=== PATIENT | female | born 1950 | race Caucasian/White ===

== ENCOUNTER → 2017-08-26 | Day surgery (SDC) | payer MEDICARE ==
[2017-08-24 15:39] LABS: BASOPHILS % 0.5 % (0.0-1.0); EOSINOPHILS # (AUTO) 0.1 (0.0-0.4); EOSINOPHILS % 1.4 % (0.0-6.0); HEMATOCRIT 39.6 % (34.2-44.1); LYMPHOCYTES # (AUTO) 1.5 (1.0-3.2); LYMPHOCYTES % 19.9 % (18.0-39.1); MEAN CORPUSCULAR HEMOGLOBIN 31.1 pg (28-32); MEAN CORPUSCULAR HGB CONC 32.8 g/dL (31-35); MEAN CORPUSCULAR VOLUME 94.7 fL (81-99); MONOCYTES # (AUTO) 0.6 (0.2-0.8); MONOCYTES % 8.2 % (4.4-11.3); NEUTROPHILS # (AUTO) 5.4 (2.1-6.9); NEUTROPHILS % 69.7 % (38.7-80.0); PLATELET COUNT 258 x10e3/uL (140-360); RED BLOOD COUNT 4.18 x10e6/uL (3.6-5.1); RED CELL DISTRIBUTION WIDTH 16.2 % (11.7-14.4)
--- NOTE | 2017-08-24 15:40 | Diagnostic Imaging Report ---
PROCEDURE: Frontal and lateral views of the chest. COMPARISON: None. INDICATIONS: PRE OP FINDINGS: Lines/tubes: Left chest wall port in place with tip overlying the inferior SVC or cavoatrial junction. Distal tips of thoracic spine stimulator device are visualized. Lungs: The lungs are well inflated and clear. There is no evidence of pneumonia or pulmonary edema. Pleura: There is no pleural effusion or pneumothorax. Heart and mediastinum: The heart and the mediastinum are normal. Surgical clips overlying midline neck base. Bones: No acute bony abnormality. Degenerative changes of the thoracic spine. IMPRESSION: 1. No acute cardiopulmonary disease. Dictated by: Oseas Infante M.D. on 08/24/2017 at 15:49 Electronically approved by: Oseas Infante M.D. on 08/24/2017 at 15:49
[2017-08-24 15:56] LABS: ANION GAP 15.7 mmol/L (8-16); CALCIUM 10.3 mg/dL (8.4-10.2); CREATININE, SERUM 1.14 mg/dL (0.57-1.11); POTASSIUM 4.7 mmol/L (3.5-5.1)
[~2017-08-26] MED LIST: ALLOPURINOL300 MG PO; AMLODIPINE BESYL5 MG PO; ANASTROZOLE1 MG PO; BELLADONNA/OPIUM 60 MG SUPP PR ONE; BENADRYL25 M1 PO; CIPRO PO; COLCRYS0.6 MG PO; CRANBERRY400 MG PO; DEXAMETHASONE SOD PHOS INJ 4 MG/ML VIAL ONE; FENTANYL CITRATE/PF 100MCG/2 ML INJ ONE; FUROSEMIDE40 MG PO; GABAPENTIN300 MG PO; GENTAMICIN 80MG/NS 100 ML 200 ML IV ONE; HEPARIN 500 UNITS/5ML MDV INJ ONE; HUMALOG100 UNIT/3 SC; HYDROCHLOROTHIA25 MG; IOPAMIDOL 610MG/1ML 300 MG/ML VIAL IV ONE; ISOSORBIDE MONO20 MG PO; ISOSORBIDE MONO30 MG PO; LANTUS 3ML100 UNITS/ SC; LIDOCAINE HCL 2% LOCAL INJ 5 ML SDV VIAL INJ ONE; LIOTHYRONINE SO5 MCG PO; LOMOTIL TABLET1 EACH PO; MAGNESIUM PO; METOPROLOL SUCC50 MG PO; METOPROLOL TART25 MG PO; MIDAZOLAM HCL 2 MG/2 ML VIAL ONE; MYRBETRIQ50 MG PO; NITROFURANTOIN100 MG PO; NITROGLYCERIN0.4 MG SL; OMEPRAZOLE40 MG PO; ONDANSETRON HCL INJ 2 MG/ML VIAL ONE; PHENERGAN PO; PLAVIX75 MG PO; PROMETHAZINE HC25 M1 PO; PROPOFOL IV EMULSION 10 MG/ML 20 ML VIAL ONE; SEVOFLURANE INHAL SOLN 250 ML PEN BTL ONE; SPIRONOLACTONE25 MG PO; SYNTHROID125 MCG PO; TEA TREE OIL30 ML PO; TEMAZEPAM15 MG PO; TEMAZEPAM30 MG; TIZANIDINE HCL4 MG PO; TRAZODONE HCL50 MG PO; VIT D3 PO; [UNRECOGNIZED DRUG - OTHER] PO; [UNRECOGNIZED DRUG - OTHER] PO
--- NOTE | 2017-10-13 07:06 | Operative Report ---
DATE OF PROCEDURE: August 26, 2017 PREOPERATIVE DIAGNOSES 1. Urinary tract infections. 2. Mixed-type urinary incontinence. POSTOPERATIVE DIAGNOSES 1. Urinary tract infections. 2. Mixed-type urinary incontinence. 3. Grade 2 cystocele. 4. Atrophic (senile) vaginitis. 5. Grade 2 rectocele. 6. Urethral hypermobility. OPERATIONS PERFORMED 1. Cystourethroscopy with bilateral ureteral catheterization and retrograde ureteropyelography. 2. Interpretation of retrograde ureteropyelography. 3. Supervision of fluoroscopy. No radiologist present. 4. Pelvic examination under anesthesia. ANESTHESIA: General. COMPLICATIONS: None. CLINICAL SUMMARY: Nadia Renner is a 67-year-old woman with the above preoperative diagnoses. She is brought for the above procedures. She is aware of the risks of bleeding, infection, injury to adjacent structures, need for additional procedures, and elected to proceed. OPERATIVE PROCEDURE IN DETAIL: Informed consent was verified. Nadia Renner was properly identified, taken to the operating room, placed on the cystoscopy table in supine position. Anesthesia was uneventfully begun. The patient was then carefully gently re-positioned in the dorsal lithotomy position with all pressure points well padded. Her genitalia were prepared and draped in usual sterile fashion. A 22.5-Turkmen cystoscope sheath with the obturator in place was atraumatically inserted into the patient's urethra and bladder was drained. Panendoscopy of the urinary bladder revealed no suspicious mucosal lesions. No tumors, no stones, and no diverticula. Normally positioned and configured ureteral orifices were identified. There were grade 1 trabeculations. A ureteral catheter was used to cannulate each ureter and retrograde ureteropyelograms were performed. Interpretation of retrograde ureteropyelography: Contrast was instilled in retrograde fashion bilaterally. There were no tumors, no stones, and no diverticula. Unobstructed drainage was observed on the left-hand side. The right-hand side had a dilated renal pelvis and calices with poor opacification of the upper pole. There appeared to be an at the ureteropelvic junction consistent with ureteropelvic junction obstruction. Due to the fact that I was not able to visualize the upper pole well, I did a thorough cystoscopy and I was not able to find a 2nd ureteral orifice on the right-hand side. The patient's bladder was then drained. Cystoscope was withdrawn. Pelvic examination under anesthesia revealed a grade 2 cystocele, grade 2 rectocele. There was atrophic vaginitis and urethral hypermobility. No abnormal palpable pelvic masses could be appreciated. There were no obvious mucosal lesions. The patient was then uneventfully reversed from anesthesia and taken to the recovery room in stable condition. There were no complications of the procedure. She tolerated the procedure well. Plans will be to order Lasix renogram to evaluate the functionality and drainage of the right kidney. Job#: [id number] cc:KRISTY RODRIGUEZ MD
== END | disposition home or self-care (01) ==
LOC: OR 05:09
PROVIDERS: ATTEND Urology
DX: N39.0 Urinary tract infection, site not specified (principal); N39.46 Mixed incontinence; N32.89 Other specified disorders of bladder; N36.41 Hypermobility of urethra; N81.10 Cystocele, unspecified; N81.6 Rectocele; N95.2 Postmenopausal atrophic vaginitis; I25.10 Atherosclerotic heart disease of native coronary artery without angina pectoris; I48.91 Unspecified atrial fibrillation; E03.9 Hypothyroidism, unspecified; E66.01 Morbid (severe) obesity due to excess calories; E11.22 Type 2 diabetes mellitus with diabetic chronic kidney disease; I12.9 Hypertensive chronic kidney disease with stage 1 through stage 4 chronic kidney disease, or unspecified chronic kidney disease; N18.9 Chronic kidney disease, unspecified; Z01.810 Encounter for preprocedural cardiovascular examination; Z01.812 Encounter for preprocedural laboratory examination; Z01.818 Encounter for other preprocedural examination
CPT/HCPCS: 36415 ×2; 52005; 71020; 74420; 80048; 82948; 85025; 93005; C1758; J1100; J1580; J2001; J2250; J2405; Q9967; 71046

== ENCOUNTER → 2017-09-17 | Outpatient (CLI) | payer MEDICARE ==
[~2017-09-17] MED LIST changes: -BELLADONNA/OPIUM 60 MG SUPP PR ONE; -CIPRO PO; -DEXAMETHASONE SOD PHOS INJ 4 MG/ML VIAL ONE; -FENTANYL CITRATE/PF 100MCG/2 ML INJ ONE; +FUROSEMIDE INJ 10 MG/ML 4 ML VIAL ONE; -GENTAMICIN 80MG/NS 100 ML 200 ML IV ONE; -HEPARIN 500 UNITS/5ML MDV INJ ONE; -HYDROCHLOROTHIA25 MG; -IOPAMIDOL 610MG/1ML 300 MG/ML VIAL IV ONE; -ISOSORBIDE MONO30 MG PO; -LIDOCAINE HCL 2% LOCAL INJ 5 ML SDV VIAL INJ ONE; -METOPROLOL TART25 MG PO; -MIDAZOLAM HCL 2 MG/2 ML VIAL ONE; -NITROFURANTOIN100 MG PO; -ONDANSETRON HCL INJ 2 MG/ML VIAL ONE; -PROMETHAZINE HC25 M1 PO; -PROPOFOL IV EMULSION 10 MG/ML 20 ML VIAL ONE; -SEVOFLURANE INHAL SOLN 250 ML PEN BTL ONE; -TEMAZEPAM30 MG
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
== END ==
LOC: NM 08:53
PROVIDERS: ATTEND Urology
DX: N13.1 Hydronephrosis with ureteral stricture, not elsewhere classified (principal); N28.1 Cyst of kidney, acquired
CPT/HCPCS: 78708; A9562; J1940

== ENCOUNTER → 2017-10-02 | Day surgery (SDC) | payer MEDICARE ==
[~2017-10-02] MED LIST changes: +BELLADONNA/OPIUM 60 MG SUPP PR ONE; +CIPRO PO; +DESFLURANE 240 ML BTL INH ONE; +DEXAMETHASONE SOD PHOS INJ 4 MG/ML VIAL ONE; +FENTANYL CITRATE/PF 100MCG/2 ML INJ ONE; +FLAGYL250 MG PO; -FUROSEMIDE INJ 10 MG/ML 4 ML VIAL ONE; +GENTAMICIN 80MG/NS 100 ML 100 ML IV ONE; +HEPARIN 500 UNITS/5ML MDV INJ ONE; +HYDROCHLOROTHIA25 MG; +HYDROMORPHONE 1MG/1ML INJ ONE; +IOPAMIDOL 610MG/1ML 300 MG/ML VIAL IV ONE; +ISOSORBIDE MONO30 MG PO; +LETROZOLE2.5 MG PO; +LIDOCAINE HCL 2% LOCAL INJ 5 ML SDV VIAL INJ ONE; +LOSARTAN POTASS25 MG PO; +METOCLOPRAMIDE HCL 10 MG/2ML VIAL ONE; +METOPROLOL TART25 MG PO; +MIDAZOLAM HCL 2 MG/2 ML VIAL ONE; +NITROFURANTOIN100 MG PO; +ONDANSETRON HCL INJ 2 MG/ML VIAL ONE; +PROMETHAZINE HC25 M1 PO; +PROPOFOL IV EMULSION 10 MG/ML 20 ML VIAL ONE; +TEMAZEPAM30 MG
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
--- NOTE | 2017-12-06 12:30 | Operative Report ---
DATE OF PROCEDURE: November 30, 2017 PREOPERATIVE DIAGNOSES 1. Right hydronephrosis due to stricture. 2. Urinary tract infections. 3. Mixed-type urinary incontinence. POSTOPERATIVE DIAGNOSES 1. Right hydronephrosis due to stricture. 2. Urinary tract infections. 3. Mixed-type urinary incontinence. 4. Grade 2 cystocele. 5. Grade 3 rectocele. 6. Urethral hypermobility. 7. Atrophic (senile) vaginitis. PROCEDURES PERFORMED 1. Cystourethroscopy with bilateral ureteral catheterization and retrograde ureteropyelography (separate procedure performed for diagnosis of urinary tract infections). 2. Cystourethroscopy with insertion of right indwelling ureteral stent (separate procedure performed the hydronephrosis due to stricture). 3. Interpretation of retrograde ureteropyelography. 4. Supervision of fluoroscopy, no radiologist present. 5. Pelvic examination under anesthesia. ANESTHESIA: General. COMPLICATIONS: None. CLINICAL SUMMARY: Nadia Renner is a 67-year-old woman with hydronephrosis presumably due to ureteropelvic junction obstruction/stricture. She is brought for the above procedures. She is aware of the risks of bleeding, infection, injury to adjacent structures, and need additional procedures and elected to proceed. OPERATIVE PROCEDURE IN DETAIL: Informed consent was verified. Ndaia Renner was properly identified, taken to operating room, and placed on the cystoscopy table in supine position. Anesthesia was uneventfully begun. Patient was then carefully and gently repositioned in dorsal lithotomy position with all pressure points well padded and her genitalia were prepared and draped in the usual sterile fashion. A 22.5-Romanian cystoscope sheath with obturator in place was atraumatically inserted in the patient's urethra and the bladder was drained. Panendoscopy within the urinary bladder revealed grade 1 trabeculations, but no tumors, no stones and no diverticula. Normally positioned and configured ureteral orifices were identified. An 8-Romanian catheter was used to cannulate the left ureter and a retrograde ureteropyelogram was performed. It was then introduced into the right ureter and retrograde ureteropyelogram was performed. Interpretation of retrograde ureteropyelography: Contrast was instilled in retrograde fashion bilaterally. Left side was unremarkable. There were no tumors, no stones, and no diverticula. Unobstructed drainage was observed fluoroscopically. On the right hand side, the ureter was unremarkable up until we reached this right kidney. The right kidney appeared lower than normal. There appeared to be obstruction at the ureteropelvic junction. It is as if this was either a ptotic kidney or it is the lower pole moiety of a duplicated system. Despite careful panendoscopy, I could not see a secondary right ureteral orifice. Under cystoscopic and fluoroscopic guidance, a right-sided indwelling ureteral stent was then placed. It was coiled in the patient's kidney as well as the patient's bladder. Retaining suture was cut short. Patient's bladder was then drained. Cystoscope was withdrawn. Pelvic examination under anesthesia revealed a grade 2 cystocele, grade 3 rectocele, urethral hypermobility as well as vaginal atrophy were present. No abnormal palpable pelvic masses could be appreciated. Patient was then uneventfully reversed from anesthesia and taken to recovery room in stable condition. There were no complications to the procedure. Patient tolerated the procedure well. Exclusive postop instructions were given. We will plan on obtaining a CT scan of the abdomen and pelvis to evaluate the upper pole of the right kidney to see whether it is duplicated, whether it is hydronephrotic, whether it is present as well as we will plan to follow the patient up in the office. Job#: [id number] JULIENNE cc:Praveen Foss MD
== END | disposition home or self-care (01) ==
LOC: OR 10:16
PROVIDERS: ATTEND Urology
DX: N13.1 Hydronephrosis with ureteral stricture, not elsewhere classified (principal); N39.0 Urinary tract infection, site not specified; N39.46 Mixed incontinence; N28.1 Cyst of kidney, acquired; N32.89 Other specified disorders of bladder; R35.1 Nocturia; N32.81 Overactive bladder; N39.44 Nocturnal enuresis; N81.89 Other female genital prolapse; N36.41 Hypermobility of urethra; N81.6 Rectocele; N95.2 Postmenopausal atrophic vaginitis; I48.91 Unspecified atrial fibrillation; I25.10 Atherosclerotic heart disease of native coronary artery without angina pectoris; E66.01 Morbid (severe) obesity due to excess calories; J45.909 Unspecified asthma, uncomplicated; Z79.02 Long term (current) use of antithrombotics/antiplatelets; Z79.4 Long term (current) use of insulin; Z68.41 Body mass index [BMI] 40.0-44.9, adult; K58.9 Irritable bowel syndrome, unspecified; E11.22 Type 2 diabetes mellitus with diabetic chronic kidney disease; I12.9 Hypertensive chronic kidney disease with stage 1 through stage 4 chronic kidney disease, or unspecified chronic kidney disease; N18.9 Chronic kidney disease, unspecified; Z80.52 Family history of malignant neoplasm of bladder
CPT/HCPCS: 36415; 52332; 74420; 82948; C1758; C2617; J1100; J1170; J1580; J2001; J2250; J2405; J2765; Q9967

== ENCOUNTER 2017-10-06 10:35 | Emergency (ER) | payer MEDICARE ==
[~2017-10-06] VITALS: Ht 165.1 cm; Wt 122.0 kg
[~2017-10-06 10:35] MED LIST changes: -BELLADONNA/OPIUM 60 MG SUPP PR ONE; -DESFLURANE 240 ML BTL INH ONE; -DEXAMETHASONE SOD PHOS INJ 4 MG/ML VIAL ONE; -FENTANYL CITRATE/PF 100MCG/2 ML INJ ONE; -FLAGYL250 MG PO; -GENTAMICIN 80MG/NS 100 ML 100 ML IV ONE; -HEPARIN 500 UNITS/5ML MDV INJ ONE; -HYDROMORPHONE 1MG/1ML INJ ONE; -IOPAMIDOL 610MG/1ML 300 MG/ML VIAL IV ONE; -ISOSORBIDE MONO30 MG PO; -LETROZOLE2.5 MG PO; -LIDOCAINE HCL 2% LOCAL INJ 5 ML SDV VIAL INJ ONE; -LOSARTAN POTASS25 MG PO; -METOCLOPRAMIDE HCL 10 MG/2ML VIAL ONE; -METOPROLOL TART25 MG PO; -MIDAZOLAM HCL 2 MG/2 ML VIAL ONE; -NITROFURANTOIN100 MG PO; -ONDANSETRON HCL INJ 2 MG/ML VIAL ONE; -PROMETHAZINE HC25 M1 PO; -PROPOFOL IV EMULSION 10 MG/ML 20 ML VIAL ONE
[2017-10-06] MEDS ORDERED: HYDROMORPHONE 1MG/1ML INJ IV STA (12:04)
[2017-10-06 13:05] LABS: BASOPHILS % 0.5 % (0.0-1.0); EOSINOPHILS # (AUTO) 0.2 (0.0-0.4); EOSINOPHILS % 2.2 % (0.0-6.0); HEMATOCRIT 35.3 % (34.2-44.1); HEMOGLOBIN 11.8 g/dL (12.0-16.0); LYMPHOCYTES # (AUTO) 1.6 (1.0-3.2); LYMPHOCYTES % 21.2 % (18.0-39.1); MEAN CORPUSCULAR HEMOGLOBIN 31.4 pg (28-32); MEAN CORPUSCULAR HGB CONC 33.4 g/dL (31-35); MEAN CORPUSCULAR VOLUME 93.9 fL (81-99); MONOCYTES # (AUTO) 0.9 (0.2-0.8); MONOCYTES % 11.6 % (4.4-11.3); NEUTROPHILS # (AUTO) 4.7 (2.1-6.9); NEUTROPHILS % 64.1 % (38.7-80.0); PLATELET COUNT 241 x10e3/uL (140-360); RED BLOOD COUNT 3.76 x10e6/uL (3.6-5.1); RED CELL DISTRIBUTION WIDTH 15.5 % (11.7-14.4)
[2017-10-06 13:08] LABS: BILIRUBIN,URINE NEGATIVE (NEGATIVE); KETONES,URINE NEGATIVE (NEGATIVE); LEUKOCYTE ESTERASE ,URINE TRACE (NEGATIVE); NITRITE,URINE NEGATIVE (NEGATIVE); URINE UROBILINOGEN 0.2 mg/dL (0.2 - 1)
[2017-10-06 13:18] LABS: ALBUMIN 3.4 g/dL (3.5-5.0); ALBUMIN/GLOBULIN RATIO 0.9 (0.8-2.0); ANION GAP 11.8 mmol/L (8-16); CALCIUM 8.7 mg/dL (8.4-10.2); CREATININE, SERUM 1.2 mg/dL (0.57-1.11); POTASSIUM 3.8 mmol/L (3.5-5.1)
[2017-10-06 13:22] LABS: CLARITY,URINE SL CLOUDY (CLEAR); COLOR,URINE YELLOW (YELLOW); PROTEIN,URINE DIPSTICK 1+ (NEGATIVE)
[2017-10-06 13:28] LABS: BACTERIA,URINE RARE /HPF; EPITHELIAL CELLS,URINE FEW /LPF; WBC,URINE (MAN) 0-5 /HPF (0-5)
--- NOTE | 2017-10-06 14:17 | Diagnostic Imaging Report ---
PROCEDURE: CT ABDOMEN AND PELVIS WITHOUT CONTRAST TECHNIQUE: The abdomen and pelvis were scanned utilizing a multidetector helical scanner from the diaphragm to the lesser trochanter. No IV contrast was administered as per physician request. Coronal and sagittal multiplanar reformations were obtained. COMPARISON: None. INDICATIONS: RIGHT FLANK PAIN FINDINGS: ABSENCE OF INTRAVENOUS CONTRAST DECREASES SENSITIVITY FOR DETECTION OF FOCAL LESIONS AND VASCULAR PATHOLOGY. LOWER THORAX: Normal. An implanted device is present in the left flank with the catheter positioned within the lower thoracic spine. Coronary artery stent. HEPATOBILIARY: No focal hepatic lesions. No biliary ductal dilatation. Cholecystectomy. SPLEEN: No splenomegaly. PANCREAS: No focal masses or ductal dilatation. ADRENALS: No adrenal nodules. KIDNEYS/URETERS: No hydronephrosis, stones, or solid mass lesions. The left kidney is atrophic. Cysts are present bilaterally. Right ureteral stent is present with the distal coil within the urinary bladder and the proximal coil within the right renal pelvis. No hydronephrosis or hydroureter. No perinephric soft tissue inflammatory changes. PELVIC ORGANS/BLADDER: Unremarkable. PERITONEUM / RETROPERITONEUM: No free air or fluid. LYMPH NODES: No lymphadenopathy. VESSELS: Unremarkable. GI TRACT: No distention or wall thickening. No appendix is visualized. Multiple diverticuli are present in the descending and sigmoid colon, without adjacent soft tissue inflammatory changes. Moderate amount of retained feces limits intraluminal evaluation of the colon. BONES AND SOFT TISSUES: Unremarkable. Degenerative changes of the lumbar spine. Postoperative changes of the ventral hernia repair. IMPRESSION: No acute abnormality of the abdomen and pelvis. Right ureteral stent. No evidence of nephrolithiasis. Diverticulosis without evidence of diverticulitis. Dictated by: Og Molina M.D. on 10/06/2017 at 14:17 Electronically approved by: Og Molina M.D. on 10/06/2017 at 14:17
== END 2017-10-06 15:26 | disposition home or self-care (01) ==
LOC: ER 10:35
DX: N39.0 Urinary tract infection, site not specified (principal); N30.01 Acute cystitis with hematuria; I10 Essential (primary) hypertension; E11.9 Type 2 diabetes mellitus without complications; E78.5 Hyperlipidemia, unspecified; I25.10 Atherosclerotic heart disease of native coronary artery without angina pectoris; Z95.5 Presence of coronary angioplasty implant and graft; Z96.0 Presence of urogenital implants
CPT/HCPCS: 36415; 74176; 80053; 81001; 83690; 85025; 87086; 96360; 99284; J1170; J1642

== ENCOUNTER 2017-10-14 12:57 | Observation (INO) | payer MEDICARE ==
[~2017-10-14] VITALS: Ht 165.1 cm; Wt 122.0 kg
--- OUTSIDE RECORDS SUMMARY | 2017-10-14 13:00 | XMS REPORT | Continuity of Care Document ---
Author Author [facility] Organization [facility] Address [address] [place] [address] Phone Unavailable Care Team Providers Care Complex Commercial Litigation Paralegal Name Role Phone KRISTY RODRIGUEZ MD PCP Insurance Providers Guarantor Nadia Renner Address [address] [place] [address] Email [email or web address] Payer [employer] Medicare Complete Policy Number [id number] Subscriber's Name Nadia Renner Relationship 18 Self / Same As Patient Group Number [id number] Effective Date 17 Advance Directives Directive Response Recorded Date/Time Does the patient have an advance directive? Yes 06/17/17 1:35pm If yes, is advance directive on file with [facility]? No 06/17/17 1:35pm If not on file with [facility] will patient provide a copy? Yes 06/17/17 1:35pm Do you have a Directive to Physician? No 10/06/17 11:36am Do you have a Medical Power of In Room Dining Server? No 10/06/17 11:36am Do you have an out of hospital Do Not Resuscitate Order? No 10/06/17 11:36am Do you have any special needs we should be aware of? No 10/06/17 11:36am Do you have a support person here with you today? Yes 10/06/17 11:36am Did patient receive Notice of Privacy Practices? Yes 10/06/17 11:36am Did patient receive patient rights and responsibilities? Yes 10/06/17 11:36am Problems No problem information available. Medications Current Home Medications Medication Dose Units Route Directions Days Qty Instructions Start Date Allopurinol 300 Mg Tablet 300 Mg Oral Daily 30 Tab Amlodipine Besylate 5 Mg Tablet 2.5 Mg Oral Twice A Day 30 Tab Anastrozole 1 Mg Tablet 1 Tab Oral Daily Calmagzinc 2 Tab Oral Daily Cipro 250 Mg Oral Twice A Day Clopidogrel Bisulfate (Plavix) 75 Mg Tablet 75 Mg Oral Daily 30 Tab Colchicine (Colcrys) 0.6 Mg Tablet 0.6 Mg Oral As Needed 30 Tab Cranberry 400 Mg Capsule 1 Cap Oral Daily Diphenhydramine Hcl (Benadryl) 25 Mg Capsule 25 Mg Oral As Needed Diphenoxylate Hcl/Atropine (Lomotil Tablet) 1 Each Tablet 1 Tab Oral As Needed Furosemide 40 Mg Tablet 40 Mg Oral Daily 30 Tab Gabapentin 300 Mg Capsule 900 Mg Oral Three Times A Day 60 Cap Hydrochlorothiazide 25 Mg Tablet 25 Mg Daily 30 Tab Insulin Glargine (Lantus 3ML Pen) 100 Units/1 Ml Inj 68 Units Subcutaneously Bedtime Insulin Lispro (Humalog) 100 Unit/1 Ml Insuln.pen Subcutaneously Before Meals Isosorbide Mononitrate 20 Mg Tablet 60 Mg Oral Twice A Day 30 Tab Lavender Oil 30 Ml Oil 30 Ml Oral Daily Levothyroxine Sodium (Synthroid) 125 Mcg Tab 125 Mcg Oral Today At 6:30AM 30 Tab Liothyronine Sodium 5 Mcg Tablet 25 Mg Oral Daily Magnesium 1 Tab Oral Daily Metoprolol Succinate 50 Mg Tab.er.24h 50 Mg Oral Every 16 Hrs Mirabegron (Myrbetriq) 50 Mg Tab.er.24h 50 Mg Oral Daily Nitroglycerin 0.4 Mg Tab.subl 0.4 Mg Sublingual Every 5 Minutes as needed for Chest Pain Omeprazole 40 Mg Capsule.dr 40 Mg Oral Daily Phenergan 25 Mg Oral As Needed Spironolactone 25 Mg Tablet 25 Mg Oral Daily 60 Tab Tea Tree Oil 30 Ml Oil 30 Mg Oral Daily Temazepam 30 Mg Capsule Bedtime Tizanidine Hcl 4 Mg Tablet 4 Mg Oral Bedtime Trazodone Hcl 50 Mg Tablet 100 Mg Oral Daily 30 Tab Vit D3 10,000 Oral Daily Past Home Medications Medication Directions Ordered Status Insulin Glargine (Lantus 3ML Pen) 100 Units/1 Ml Inj, Subcutaneously Before Meals Discontinued Temazepam 15 Mg Capsule, 15 Mg Oral Bedtime Discontinued Social History Smoking Status Start Date Stop Date Never Smoker Hospital Discharge Instructions No hospital discharge instruction information available. Plan of Care Discharge Date 10/06/17 3:26pm Disposition HOME, SELF-CARE Condition at Discharge Stable Instructions/Education Provided Abdominal Pain - Adult Forms Provided Work/School Excuse Prescriptions See Medication Section Referrals KRISTY RODRIGUEZ MD Address: [address] [place], [place] [id number] DHARA CHAVIRA MD Address: [address] [place] [address] Additional Instructions/Education FOLLOW UP WITH PCP TAKE MEDS DIRECTED Functional Status No functional status information available. Allergies, Adverse Reactions, Alerts Allergen Type Severity Reaction Status Last Updated Hydrocodone Allergy Intermediate ITCHING Active 08/25/17 Oxycodone Allergy Intermediate VOMITING Active 08/25/17 Aspirin Allergy Intermediate GASTRITIS, WHEEZING, DIAPHRAGMATIC SPASMS, THROAT CLOSES UP Active 08/25/17 Acetaminophen Allergy Intermediate ITCHING Active 08/25/17 Baclofen Allergy Intermediate MUSCLE TREMORS AND JERKING Active 08/25/17 soap Allergy Intermediate RASH AND ITCHING Active 08/25/17 Gemfibrozil Allergy Intermediate MUSCLE PAIN Active 08/25/17 Betamethasone Allergy Intermediate TACHYCARDIA AND HTN Active 08/25/17 Metolazone Allergy Unknown Active 08/25/17 Aspartame Allergy Intermediate HEADACHES AND VOMITING Active 08/25/17 Cephalexin Allergy Intermediate ITCHING AND VOMITING Active 08/25/17 Tetracycline Allergy Mild ITCHING Active 08/25/17 clavulanic acid Allergy Intermediate ITCHING Active 08/25/17 Povidone-iodine Allergy Intermediate RASH AND ITCHING Active 08/25/17 Simvastatin Allergy Intermediate MUSCLE WEAKNESS, PAIN, WHEEZING, ELEVATED BLOOD SUGARS Active 08/25/17 Amoxicillin Allergy Intermediate ITCHING Active 08/25/17 Tramadol Allergy Intermediate RASH, ITCHING, HEADACHES, IRREGULAR HEART BEAT Active 08/25/17 Amitriptyline Allergy Intermediate MUSCLE TREMORS Active 08/25/17 Metoclopramide Allergy Intermediate MUSCLE TREMORS Active 08/25/17 Atorvastatin Allergy Intermediate MUSCLE PAIN WEAKNESS AND DARK URINE Active 08/25/17 Ezetimibe Allergy Intermediate MUSCLE WEAKNESS, PAIN, WHEEZING Active 05/04 Pregabalin Allergy Intermediate MUSCLE TREMORS AND JERKING Active 08/25/17 ADVAIR Allergy Intermediate NEUROLOGICAL PROBLEMS Active 08/25/17 IVP DYE Allergy Intermediate ITCHING Active 08/25/17 MYACINS Allergy Intermediate ITCHING AND RASH Active 08/25/17 NASAIDS Allergy Intermediate GASTRITIS, WHEEZING, DIAPHRAGMATIC SPASMS, THROAT CLOSES Active 08/25/17 PENICILLIN Allergy Intermediate ITCHING Active 08/25/17 PRENIVIL Allergy Intermediate TACHY Active 08/25/17 PROBANTHINE Allergy Unknown Active 08/25/17 Immunizations No immunization information available. Vital Signs Acute Vital Signs Vital Response Date/Time Height 5 ft 5 in 10/06/2017 10:39am Weight 269 lb 10/06/2017 10:39am Body Mass Index 44.8 kg/m^2 10/06/2017 10:39am Results Laboratory Results Test Name Result Units Flags Reference Collection Date/Time Result Date/ Time Comments Bedside Glucose 96 mg/dL 70-120 10/02/2017 3:30pm 10/02/2017 3:38pm Meter ID: [id number] White Blood Count 7.32 x10e3/uL 4.8-10.8 10/06/2017 12:35pm 10/06/2017 1:21pm Red Blood Count 3.76 x10e6/uL 3.6-5.1 10/06/2017 12:35pm 10/06/2017 1: 21pm Hemoglobin 11.8 g/dL L 12.0-16.0 10/06/2017 12:35pm 10/06/2017 1:21pm Hematocrit 35.3 % 34.2-44.1 10/06/2017 12:35pm 10/06/2017 1:21pm Mean Corpuscular Volume 93.9 fL 81-99 10/06/2017 12:35pm 10/06/2017 1: 21pm Mean Corpuscular Hemoglobin 31.4 pg 28-32 10/06/2017 12:35pm 2017 1:21pm Mean Corpuscular Hemoglobin Concent 33.4 g/dL 31-35 10/06/2017 12:35pm 10/06/2017 1:21pm Red Cell Distribution Width 15.5 % H 11.7-14.4 10/06/2017 12:35pm 2017 1:21pm Platelet Count 241 x10e3/uL 140-360 10/06/2017 12:35pm 10/06/2017 1: 21pm Neutrophils (%) (Auto) 64.1 % 38.7-80.0 10/06/2017 12:35pm 10/06/2017 1 :21pm Lymphocytes (%) (Auto) 21.2 % 18.0-39.1 10/06/2017 12:35pm 10/06/2017 1 :21pm Monocytes (%) (Auto) 11.6 % H 4.4-11.3 10/06/2017 12:35pm 10/06/2017 1: 21pm Eosinophils (%) (Auto) 2.2 % 0.0-6.0 10/06/2017 12:35pm 10/06/2017 1: 21pm Basophils (%) (Auto) 0.5 % 0.0-1.0 10/06/2017 12:35pm 10/06/2017 1: 21pm IM GRANULOCYTES % 0.4 % 0.0-1.0 10/06/2017 12:35pm 10/06/2017 1:21pm Neutrophils # (Auto) 4.7 2.1-6.9 10/06/2017 12:35pm 10/06/2017 1: 21pm Lymphocytes # (Auto) 1.6 1.0-3.2 10/06/2017 12:35pm 10/06/2017 1: 21pm Monocytes # (Auto) 0.9 H 0.2-0.8 10/06/2017 12:35pm 10/06/2017 1:21pm Eosinophils # (Auto) 0.2 0.0-0.4 10/06/2017 12:35pm 10/06/2017 1: 21pm Basophils # (Auto) 0.0 0.0-0.1 10/06/2017 12:35pm 10/06/2017 1:21pm Absolute Immature Granulocyte (auto 0.03 x10e3/uL 0-0.1 10/06/2017 12: 35pm 10/06/2017 1:21pm Urine Color YELLOW YELLOW 10/06/2017 12:55pm 10/06/2017 1:22pm Urine Clarity SL CLOUDY CLEAR 10/06/2017 12:55pm 10/06/2017 1:22pm Urine Specific [place] 1.015 1.010-1.025 10/06/2017 12:55pm 2017 1:22pm Urine pH 6 5 - 7 10/06/2017 12:55pm 10/06/2017 1:22pm Urine Leukocyte Esterase TRACE H NEGATIVE 10/06/2017 12:55pm 2017 1:22pm Urine Nitrite NEGATIVE NEGATIVE 10/06/2017 12:55pm 10/06/2017 1:22pm Urine Protein 1+ H NEGATIVE 10/06/2017 12:55pm 10/06/2017 1:22pm Urine Glucose (UA) NEGATIVE NEGATIVE 10/06/2017 12:55pm 10/06/2017 1: 22pm Urine Ketones NEGATIVE NEGATIVE 10/06/2017 12:55pm 10/06/2017 1:22pm Urine Urobilinogen 0.2 mg/dL 0.2 - 1 10/06/2017 12:55pm 10/06/2017 1: 22pm Urine Bilirubin NEGATIVE NEGATIVE 10/06/2017 12:55pm 10/06/2017 1: 22pm Urine Blood 4+ H NEGATIVE 10/06/2017 12:55pm 10/06/2017 1:22pm Urine WBC 0-5 /HPF 0-5 10/06/2017 12:55pm 10/06/2017 1:29pm Urine RBC 11-20 /HPF H 0-5 10/06/2017 12:55pm 10/06/2017 1:29pm Urine Bacteria RARE /HPF NONE 10/06/2017 12:55pm 10/06/2017 1:29pm Urine Epithelial Cells FEW /LPF NONE 10/06/2017 12:55pm 10/06/2017 1: 29pm Urine Fine Granular Casts 1-5 H 0 10/06/2017 12:55pm 10/06/2017 1: 29pm Sodium Level 139 mmol/L 136-145 10/06/2017 12:35pm 10/06/2017 1:21pm Potassium Level 3.8 mmol/L 3.5-5.1 10/06/2017 12:35pm 10/06/2017 1: 21pm Chloride Level 98 mmol/L 98-107 10/06/2017 12:35pm 10/06/2017 1:21pm Carbon Dioxide Level 33 mmol/L H 22-29 10/06/2017 12:35pm 10/06/2017 1: 21pm Anion Gap 11.8 mmol/L 8-16 10/06/2017 12:35pm 10/06/2017 1:21pm Blood Urea Nitrogen 36 mg/dL H 7-10/06/2017 12:35pm 10/06/2017 1: 21pm Creatinine 1.20 mg/dL H 0.57-1.11 10/06/2017 12:35pm 10/06/2017 1:21pm BUN/Creatinine Ratio 30 H 6-25 10/06/2017 12:35pm 10/06/2017 1:21pm Estimat Glomerular Filtration Rate 45 ML/MIN L 60- 10/06/2017 12:35pm 1:21pm Ranges were taken from the National Kidney Disease Education Program and the National Kid[employer] Foundation literature. Reference ranges: 60 or greater: Normal 16-59 (for 3 consecutive months): Chronic kidney disease 15 or less: Kidney failure Glucose Level 110 mg/dL 74-118 10/06/2017 12:35pm 10/06/2017 1:21pm Calcium Level 8.7 mg/dL # 8.4-10.2 10/06/2017 12:35pm 10/06/2017 1:21pm Total Bilirubin 0.5 mg/dL 0.2-1.2 10/06/2017 12:35pm 10/06/2017 1:21pm Aspartate Amino Transf (AST/SGOT) 15 IU/L 5-34 10/06/2017 12:35pm 10/06 1:21pm Alanine Aminotransferase (ALT/SGPT) 10 IU/L 0-55 10/06/2017 12:35pm 1:21pm Total Protein 7.1 g/dL 6.5-8.1 10/06/2017 12:35pm 10/06/2017 1:21pm Albumin 3.4 g/dL L 3.5-5.0 10/06/2017 12:35pm 10/06/2017 1:21pm Globulin 3.7 g/dL H 2.3-3.5 10/06/2017 12:35pm 10/06/2017 1:21pm Albumin/Globulin Ratio 0.9 0.8-2.0 10/06/2017 12:35pm 10/06/2017 1: 21pm Alkaline Phosphatase 84 IU/L 40-150 10/06/2017 12:35pm 10/06/2017 1: 21pm Lipase 14 U/L 8-78 10/06/2017 12:35pm 10/06/2017 1:21pm Procedures Procedure Status Date Provider(s) Cystoscopy with retrograde pyelography Completed 08/26/17 DHARA CHAVIRA MD Cystoscopy with retrograde pyelography Completed 10/02/17 DHARA CHAVIRA MD X-ray of chest, two views Active 08/24/[address] of abdomen and pelvis without contrast Active 10/06/17 NIRALI VALDEZ MD Encounters Encounter Location Arrival/Admit Date Discharge/Depart Date Attending Provider Departed Emergency Room [facility] 10/06/17 10:35am 10/06 3:26pm NIRALI VALDEZ MD Registered Surgical Day Care [facility] 10/02/17 10:16am DHARA CHAVIRA MD Registered Clinic [facility] 09/17/17 8:53am DHARA CHAVIRA MD Registered Surgical Day Care [facility] 08/26/17 5:09am DHARA CHAVIRA MD Registered Clinic [facility] 06/17/17 1:35pm DHARA CHAVIRA MD
--- NOTE | 2017-10-14 15:41 | Diagnostic Imaging Report ---
PROCEDURE: CHEST SINGLE (PORTABLE) 1526 hrs. COMPARISON: Chest x-ray 08/24/17. INDICATIONS: SOB, MUSCLE CRAMPS FINDINGS: LUNGS: Central pulmonary vascular prominence. No mass or infiltrate. PLEURA: No effusions or pneumothorax. HEART \T\ MEDIASTINUM: MediPort catheter terminates in the SVC and is stable in position. Mild cardiomegaly. No hilar lymphadenopathy. BONES \T\ SOFT TISSUES: Resorption of the distal left clavicle is stable. Clips in the lower neck are stable. Spinal stimulator is stable in position. CONCLUSION: Mild central pulmonary vascular congestion. No acute pulmonary process. Dictated by: Darrell Alegria M.D. on 10/14/2017 at 15:41 Electronically approved by: Darrell Alegria M.D. on 10/14/2017 at 15:41
--- NOTE | 2017-10-14 16:01 | Diagnostic Imaging Report ---
History:Rule out intracranial abnormality Comparison studies:None Technique: Axial images were obtained from the skull base to the vertex. Coronal and sagittal images reconstructed from the axial data. Intravenous contrast: None Findings: Scalp/skull: No abnormalities. Extra-axial spaces: No masses. No fluid collections. Brain sulci: Age-appropriate. Ventricles: Age-appropriate.. No hydrocephalus. Parenchyma: No abnormal density. No masses, hemorrhage, acute or chronic cortical vascular insults. Sellar/suprasellar region: No abnormalities. Craniocervical junction: Patent foramen magnum. No Chiari one malformation. Incidental findings: Atherosclerotic calcifications in the carotid siphons . Impression: No acute abnormalities. Signed by: DR Raymond Biggs M.D. on 10/14/2017 3:57 PM
[2017-10-14] MEDS ORDERED: SODIUM CHLORIDE 0.9% 1000ML 1,000 ML IV STA (16:45)
[2017-10-14] MEDS ORDERED: ONDANSETRON HCL INJ 2 MG/ML VIAL IV STA (16:45)
[2017-10-14 17:25] LABS: BASOPHILS % 0.5 % (0.0-1.0); EOSINOPHILS # (AUTO) 0.1 (0.0-0.4); EOSINOPHILS % 0.7 % (0.0-6.0); HEMATOCRIT 38.4 % (34.2-44.1); HEMOGLOBIN 12.9 g/dL (12.0-16.0); LYMPHOCYTES # (AUTO) 1.3 (1.0-3.2); LYMPHOCYTES % 16.5 % (18.0-39.1); MEAN CORPUSCULAR HEMOGLOBIN 31.2 pg (28-32); MEAN CORPUSCULAR HGB CONC 33.6 g/dL (31-35); MEAN CORPUSCULAR VOLUME 92.8 fL (81-99); MONOCYTES # (AUTO) 0.8 (0.2-0.8); NEUTROPHILS # (AUTO) 5.8 (2.1-6.9); NEUTROPHILS % 71.9 % (38.7-80.0); PLATELET COUNT 243 x10e3/uL (140-360); RED BLOOD COUNT 4.14 x10e6/uL (3.6-5.1); RED CELL DISTRIBUTION WIDTH 14.9 % (11.7-14.4)
[2017-10-14] MEDS ORDERED: LORAZEPAM INJ 2 MG/ML VIAL IV ONE (17:30)
[2017-10-14 17:35] LABS: INR 0.95; PROTHROMBIN TIME 11.9 seconds (11.9-14.5)
[2017-10-14 17:36] LABS: PARTIAL THROMBOPLASTIN TIME 26.8 seconds (23.8-35.5)
[2017-10-14 17:46] LABS: ALBUMIN 3.9 g/dL (3.5-5.0); ANION GAP 15.6 mmol/L (8-16); CALCIUM 9.5 mg/dL (8.4-10.2); CREATININE, SERUM 1.17 mg/dL (0.57-1.11); MAGNESIUM 2.2 MG/DL (1.3-2.1); POTASSIUM 3.6 mmol/L (3.5-5.1)
[2017-10-14 17:54] LABS: B-TYPE NATRIURETIC PEPTIDE2 29.8 pg/mL (0-100)
[2017-10-14 18:06] LABS: CREATINE KINASE MB 1.7 ng/mL (0-5.0); THYROID STIMULATING HORMONE 0.151 uIU/mL (0.350-4.940)
[2017-10-14 19:27] LABS: BILIRUBIN,URINE NEGATIVE (NEGATIVE); CLARITY,URINE CLEAR (CLEAR); COLOR,URINE YELLOW (YELLOW); KETONES,URINE NEGATIVE (NEGATIVE); LEUKOCYTE ESTERASE ,URINE NEGATIVE (NEGATIVE); NITRITE,URINE NEGATIVE (NEGATIVE); PROTEIN,URINE DIPSTICK NEGATIVE (NEGATIVE); URINE UROBILINOGEN 0.2 mg/dL (0.2 - 1)
[2017-10-14] MEDS ORDERED: DEXTROSE 50% SYRINGE 50 ML IV PRN (19:30)
[2017-10-14] MEDS ORDERED: METOPROLOL TART25 MG PO (19:39)
[2017-10-14] MEDS ORDERED: NITROFURANTOIN100 MG PO (19:39)
[2017-10-14] MEDS ORDERED: ISOSORBIDE MONO30 MG PO ×2 (19:39→19:48)
[2017-10-14 19:44] LABS: EPITHELIAL CELLS,URINE FEW /LPF
[2017-10-14 19:45] LABS: WBC,URINE (MAN) 0-5 /HPF (0-5)
[2017-10-14] MEDS ORDERED: PROMETHAZINE HC25 M1 PO (19:53)
[2017-10-14 21:00] VITALS: BP 121/60
[2017-10-14] MEDS: INSULIN REGULAR, HUMAN 100 UNIT/1 ML 3ML VIAL SQ SCH (21:00)
[2017-10-14 22:14] VITALS: BP 121/60
[2017-10-14] MEDS: SODIUM CHLORIDE 0.9% 1000ML 1,000 ML IV SCH (23:05)
[2017-10-14] MEDS: HYDROMORPHONE 1MG/1ML INJ IV PRN (23:16)
[2017-10-14] MEDS: ONDANSETRON HCL INJ 2 MG/ML VIAL IV PRN (23:17)
[2017-10-14 23:28] VITALS: BP 121/60
[2017-10-15] VITALS (7 sets, daily range): BP systolic 114–168; BP diastolic 63–75
[2017-10-15] MEDS: LORAZEPAM INJ 2 MG/ML VIAL IV PRN ×2 (00:10→06:23)
[2017-10-15 02:49] LABS: CREATINE KINASE MB 1.6 ng/mL (0-5.0)
[2017-10-15] MEDS: HYDROMORPHONE 1MG/1ML INJ IV PRN (05:30)
[2017-10-15] MEDS: ONDANSETRON HCL INJ 2 MG/ML VIAL IV PRN ×3 (05:30→15:33)
[2017-10-15 06:22] LABS: BASOPHILS % 0.3 % (0.0-1.0); EOSINOPHILS # (AUTO) 0.1 (0.0-0.4); EOSINOPHILS % 1.4 % (0.0-6.0); HEMATOCRIT 36.6 % (34.2-44.1); LYMPHOCYTES # (AUTO) 1.4 (1.0-3.2); LYMPHOCYTES % 19.5 % (18.0-39.1); MEAN CORPUSCULAR HGB CONC 32.8 g/dL (31-35); MEAN CORPUSCULAR VOLUME 94.6 fL (81-99); MONOCYTES # (AUTO) 0.7 (0.2-0.8); MONOCYTES % 9.9 % (4.4-11.3); NEUTROPHILS # (AUTO) 4.9 (2.1-6.9); NEUTROPHILS % 68.8 % (38.7-80.0); PLATELET COUNT 216 x10e3/uL (140-360); RED BLOOD COUNT 3.87 x10e6/uL (3.6-5.1); RED CELL DISTRIBUTION WIDTH 15.1 % (11.7-14.4)
[2017-10-15] MEDS: SODIUM CHLORIDE 0.9% 1000ML 1,000 ML IV SCH ×3 (06:26→22:20)
[2017-10-15 06:46] LABS: CALCIUM 8.8 mg/dL (8.4-10.2); CHOL/HDL RATIO 4.6 (3.0-3.6); CREATININE, SERUM 1.17 mg/dL (0.57-1.11)
[2017-10-15] MEDS ORDERED: CLOPIDOGREL BISULFATE 75 MG TAB PO ONE (07:15)
[2017-10-15] MEDS ORDERED: HYDROMORPHONE 1MG/1ML INJ IV PRN (07:15)
[2017-10-15] MEDS ORDERED: COLCHICINE 0.6 MG TAB PO PRN (07:15)
[2017-10-15] MEDS: INSULIN REGULAR, HUMAN 100 UNIT/1 ML 3ML VIAL SQ SCH ×4 (07:30→21:30)
--- NOTE | 2017-10-15 07:55 | History and Physical ---
This 67-year-old female comes in with increased muscle spasm and generalized weakness. HISTORY OF PRESENT ILLNESS: Ms. Renner, with a recent history of breast cancer on radiation at this point in time, was in her usual state of health until about 1 week prior to admission. The patient had severe sore throat and fever. We did a strep culture in the office, and it was negative; but the patient's throat was very tender and also erythematous. She was started on some antibiotics. She was given some Lincocin injections because of her multiple allergies. The patient was doing fine until about 2 days prior to admission. The patient started to have generalized weakness which was more in the left lower extremity with inability to move and decreased strength and also in the left upper extremity. This progressed on to all extremities. The patient has a tremendous amount of leg cramps. She came to the hospital and was admitted after she was found to be having some acute kidney injury and dehydration. PAST MEDICAL HISTORY 1. History of coronary artery disease. 2. History of diabetes mellitus. 3. History of hypertension. 4. History of hypothyroidism. 5. Incontinence. 6. Insomnia. 7. Neuropathy from diabetes. 8. History of breast cancer as mentioned above and is currently on brachytherapy. 9. Gout. MEDICATIONS AT HOME 1. Amlodipine 5 mg. 2. Allopurinol 300. 3. Clopidogrel 75. 4. Colchicine 0.6. 5. Cranberry 400-mg capsules. 6. Benadryl as needed. 7. Gabapentin 300 mg, which is 900 mg 3 times a day. 8. Hydrochlorothiazide 25. 9. Insulin glargine 62 units. 10. Insulin lispro on a sliding scale. 11. Isosorbide 60 mg twice a day. 12. Levothyroxine 125. 13. Liothyronine 5 mcg. 14. Metoprolol 25 twice a day. 15. Myrbetriq 50 mg. 16. Currently on nitrofurantoin for UTI. 17. Omeprazole 40 mg. 18. Promethazine as needed. 19. Aldactone 25. 20. Multiple Tree ROLLY and vitamins 21. Temazepam and trazodone for sleep. SURGICAL HISTORY 1. History of mastectomy, recent. 2. History of hysterectomy. 3. History of knee surgery. 4. Patient has history of breast cancer and thyroid cancer. 5. Multiple stones, and ureteral stents have been put in earlier. 6. Cardiac stent in 2013. FAMILY HISTORY: Positive for hypertension. Family history of cancer. Heart disease in the family. SOCIAL HISTORY: No recreational or IV drug abuse. She lives with her . REVIEW OF SYSTEMS: Negative for chest pain. Positive for some shortness of breath. No nausea, vomiting, diarrhea. No constipation. No rectal bleeding, hematochezia or hematemesis. No blurry vision. Positive for headache and generalized weakness as mentioned above. PHYSICAL EXAMINATION GENERAL: Alert and oriented times 3. VITAL SIGNS: Temperature 96.8, pulse 64, respirations 16, blood pressure 121/60. Pulse ox 96% on room air. HEENT: Normocephalic and atraumatic. The pupils are reacting to light and accommodation. CVS: S1 and S2 normal, regular rate and rhythm. CHEST WALL: Tender all over. There are some radiation sanders also present. EXTREMITIES: No clubbing. Positive for some trace edema. No signs of cellulitis. Positive for multiple hammertoes on the lower extremities, too. Decreased sensation in the lower extremities with decreased vibratory senses. NEUROLOGIC: The patient has generalized weakness. Left lower extremity with 2/5 strength. The rest of the extremities are normal. Left lower extremity movement is restricted secondary to pain possibly and also lumbar spinal tenderness present, too. LABS: Sodium 141, BUN 15, creatinine 1.17, ratio 43. Lactic acid was negative. Magnesium was 2.2. Creatine 140, CK 177, CK-MB 1.7, troponin 0.09 and the next one 0.005. LDL was 142. The patient is statin intolerant. CT was negative. Chest x-ray was negative. Brain CT showed no acute abnormalities. ASSESSMENT 1. Acute kidney injury. 2. Dehydration. 3. Left lower extremity weakness. 4. Myalgia with elevated creatine kinase. PLAN 1. Continue hydrating the patient. She needs hydration. 2. With the lower extremity weakness and paresthesias, a neurology consult with Dr. Vera has been ordered. We will continue doing that. 3. For her diabetes, coronary artery disease and hypertension, we will restart her on medication. Will follow up with her CT in the morning. Also, order a sed rate and CRP. 4. Further recommendations per clinical course and also depending on neurological evaluation. Job#: [id number]
[2017-10-15] MEDS: LEVOTHYROXINE SODIUM 125 MCG TAB PO SCH (08:00)
[2017-10-15 08:42] LABS: CREATINE KINASE 161 IU/L (29-168)
[2017-10-15] MEDS: ISOSORBIDE MONONITRATE 30 MG TAB CR PO SCH ×2 (08:48→16:43)
[2017-10-15] MEDS: SPIRONOLACTONE 25 MG TAB PO SCH (08:48)
[2017-10-15] MEDS: ALLOPURINOL 300 MG TAB PO SCH (08:49)
[2017-10-15] MEDS: GABAPENTIN 300 MG CAP PO SCH ×3 (08:49→21:45)
[2017-10-15] MEDS: PANTOPRAZOLE SOD 40 MG TABEC PO SCH (08:49)
[2017-10-15] MEDS: AMLODIPINE BESYLATE 5 MG TAB PO SCH ×2 (08:49→16:43)
[2017-10-15] MEDS: METOPROLOL TARTRATE 25 MG TAB PO SCH ×3 (08:49→21:45)
[2017-10-15] MEDS ORDERED: ISOSORBIDE MONONITRATE 20 MG TAB PO SCH (09:00)
[2017-10-15] MEDS: HYDROMORPHONE 2MG/ML INJ IV PRN ×2 (09:43→15:33)
[2017-10-15] MEDS: INSULIN DETEMIR 100 UNIT/ML PEN SQ SCH (21:45)
[2017-10-15] MEDS: TRAZODONE HCL 50 MG TAB PO SCH (22:20)
--- NOTE | 2017-10-15 22:25 | Consultation ---
DATE OF CONSULTATION: October 15, 2017 NEUROLOGY CONSULTATION NOTE DATE OF : 1950 HISTORY OF PRESENT ILLNESS: Ms. Renner is a 67-year-old right-hand dominant woman with an extensive past medical history admitted to [facility] on October 14, 2017, with generalized weakness and muscle pain further described as diffuse muscle spasms. Of note, the patient's responses are tangential when providing her medical history. Ms. Renner has to be redirected multiple times during the encounter. Two days prior to admission, the patient was in her primary care physician's office for evaluation of a persistent sore throat as well as fullness or pressure behind the ears. As the nurse came in to the examination room, Ms. Renner attempted to stand. However, her left leg gave out. The patient reports her left leg would not support her weight. It was at that time Ms. Renner noted weakness not only in her left leg, but in her left arm as well. In addition to the left hemiparesis, the patient reports pain in the muscles of both legs and the left arm due to intermittent contraction and tremor of both legs and the left arm, left side greater than right side. The patient endorses a pins and needles sensation in both hands and the left foreleg, questionable vision change associated with left-sided weakness, mild dysarthria, and impairment of gait secondary to left leg weakness. The patient does not report a visual field cut, aphasia, dizziness or confusion. When asked whether or not these symptoms began abruptly or gradually, Ms. Renner reports the above symptoms have been more prominent over the past 2 days. However, she does say over the past 3-4 weeks she has "stumbled around and not felt stable when I am walking". Due to the presence of these, as well as other symptoms, Ms. Renner was encouraged by her primary care physician to proceed to [facility] for further evaluation and treatment. REVIEW OF SYSTEMS: Possible visual change, joint pain, low back pain, dysarthria, weakness of the left arm and leg, tingling of the hands and left foreleg, musculoskeletal pain of both legs and the left arm, impairment of balance and gait, tremors, and muscle tightening/spasms. Otherwise, a 12-point review of systems is negative. PAST MEDICAL HISTORY: Hypertension, hyperlipidemia, insulin-dependent diabetes mellitus, coronary artery disease, questionable history of atrial fibrillation, questionable history of asthma, papillary thyroid cancer, Raynaud's, stage-2 or 3 chronic kidney disease, frequent urinary tract infections, gastroesophageal reflux disease, gastroparesis, depression (untreated), prior history of migraines, left breast cancer status post left partial mastectomy, and radiation therapy (last radiation treatment June 12, 2017), peripheral neuropathy secondary to diabetes mellitus, obesity. PAST SURGICAL HISTORY: Two lumbar spine surgeries, implantation of spinal cord stimulator, implantation of pain pump with subsequent removal secondary to infection, cardiac stent placement times 2, thyroid ablation, thyroidectomy, cholecystectomy, stent placement in the right ureter, left breast biopsy and partial mastectomy, multiple thyroid biopsies, total hysterectomy, bladder suspensions. PAST HOSPITALIZATIONS: Ms. Renner has been hospitalized multiple times for various surgeries and other diagnostic procedures. She has been hospitalized for childbirth 3 times. She has been hospitalized multiple times for kidney infections, sepsis, diverticulitis. FAMILY HISTORY: The patient's father is . He had coronary artery disease. The patient's mother is . She had hypertension, diabetes mellitus, COPD, and questionable bipolar disorder. The patient has no brothers or sisters. The patient has 3 children, 2 sons and 1 daughter. All of her children are healthy. SOCIAL HISTORY: The patient is . 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 The patient is retired at this time. She does not endorse current or prior tobacco or recreational drug use. She will drink an occasional glass of wine. MEDICATIONS 1. Amlodipine 5 mg by mouth daily. 2. Allopurinol 300 mg by mouth daily. 3. Clopidogrel 75 mg by mouth daily. 4. Colchicine 0.6 mg by mouth daily. 5. Cranberry supplement 400 mg by mouth daily. 6. Benadryl as needed. 7. Gabapentin 900 mg by mouth 3 times daily. 8. Hydrochlorothiazide 25 mg by mouth daily. 9. Insulin glargine 62 units subcutaneously daily. 10. Insulin lispro on a sliding scale. 11. Isosorbide 60 mg by mouth twice daily. 12. Levothyroxine 125 mcg by mouth every morning. 13. Liothyronine 5 mcg by mouth every morning. 14. Metoprolol 25 mg by mouth twice daily. 15. Myrbetriq 50 mg by mouth daily. 16. Omeprazole 40 mg by mouth daily. 17. Aldactone 25 mg by mouth daily. 18. Promethazine as needed. 19. Multivitamin. 20. Temazepam and trazodone for sleep. 21. Currently on nitrofurantoin for urinary tract infection. ALLERGIES: ADVAIR, IVP DYE, NIACIN, NSAIDs, PENICILLIN, PRINIVIL, PERSANTINE, ACETAMINOPHEN, AMITRIPTYLINE, AMOXICILLIN, ASPARTAME, ASPIRIN, ATORVASTATIN, BACLOFEN, BETAMETHASONE, KEFLEX, CLAVULANIC ACID, ZETIA, HYDROCODONE, GEMFIBROZIL, METOCLOPRAMIDE, OXYCODONE, PREGABALIN, SIMVASTATIN, BETADINE, TRAMADOL, TETRACYCLINE, METOLAZONE. PHYSICAL EXAMINATION VITAL SIGNS: Height 5 feet 5 inches, weight 269 lbs, BMI 44.8 kg/meter squared. Blood pressure 125/63 mmHg, pulse 68 beats per minute, respiratory rate 16 breaths per minute, oxygen saturation 97% on room air. GENERAL: The patient is drowsy secondary to medication effect, does not appear distressed, morbidly obese. HEENT: Normocephalic, atraumatic. Surgical pupils. Moist mucous membranes. NECK: Supple. No appreciable thyromegaly. No appreciable carotid bruits. CARDIOVASCULAR: S1, S2, regular rate and rhythm. No murmurs, rubs or gallops RESPIRATORY: Clear to auscultation bilaterally. No wheezes, rhonchi or rales. EXTREMITIES: No clubbing, cyanosis or edema. The posterior tibial and dorsalis pedis pulses are 2+ and symmetric. SKIN: Warm and dry. No rashes or lesions. NEUROLOGIC Memory/Attention: The patient is awake and alert, oriented to person, place, time, and situation. Cranial nerves: Cranial nerve I--not tested. Cranial nerve II, III, IV, and --surgical pupils, extraocular movements intact, no nystagmus. Cranial nerve V--sensation to light touch is diminished over the left V2 and V3 distributions. Sensation to pinprick is intact in the bilateral V1 through V3 distributions. Strength of the temporalis and masseter muscles is within normal limits. Cranial nerve VII--the face is symmetric as are all facial movements. Strength is within normal limits. Cranial nerve VIII--hearing is intact to finger rub bilaterally. Cranial nerve IX, X--the soft palate elevates equally and symmetrically. Cranial nerve XI--normal strength of the bilateral sternocleidomastoid and trapezius muscles. Cranial nerve XII--the tongue protrudes midline and moves symmetrically from side to side. No atrophy or fasciculations. Strength: Bulk is normal. A formal assessment of strength is impaired by functional weakness. The patient is able to hold both arms and both legs against gravity for 10 seconds and 5 seconds respectively. Strength is grossly 4/5 to 4+/5 except as follows: Strength in the bilateral dorsiflexors and plantar flexors is 3-/5. Normal tone. DTRs: Deep tendon reflexes are diminished throughout. Plantar responses are flexor bilaterally. Sensation: Sensation to light touch is diminished over the right arm, but intact in both legs. Sensation to pinprick is diminished over the left arm, but intact in both legs. Cerebellar: [id number] maneuvers are intact without dysmetria or other impairment. The patient is unable to perform heel-sarkar maneuvers due to muscle spasms in both thighs. Of note, palpation of the thigh muscles of both legs does not demonstrate muscle spasm. Gait: Deferred. Speech: Spontaneous speech is normal without appreciable dysarthria or aphasia. Repetition is intact. Involuntary Movements: Intermittently, the patient exhibits moderate frequency, moderate amplitude tremor in the left arm or the left leg or the right arm. The patient is distractible, and the tremor significantly improves and/or resolves with distraction. Tremor appears to be functional. Pronator Drift: None. LABORATORY DATA: Sodium 141, potassium 4.0, chloride 101, carbon dioxide 32, anion gap 12, BUN 43, creatinine 1.7. Estimated GFR 46. BUN to creatinine ratio of 43, glucose 158, lactic acid 5.1, calcium 8.8, magnesium 2.2, total bilirubin 1.0. AST 19, ALT 13, alkaline phosphatase 90, creatinine kinase 140 and 147, CK-MB 1.70 and 1.60, troponin-I 0.009, and 0.005, B-natriuretic peptide 29.8, total protein 7.7, albumin 3.9, globulin 3.8, albumin to globulin ratio 1.0. Total cholesterol 219, triglycerides 143, LDL cholesterol 142, HDL cholesterol 48. Vitamin B12 level 422, TSH 0.151. CBC with differential and platelets reveals a white blood cell count of 7.09 with a normal differential. The hemoglobin and hematocrit are 12.0 and 36.6, respectively. The platelet count is 216,000. Erythrocyte sedimentation rates 58. PT 11.9, INR 0.95, PTT 26.8. Urinalysis shows no evidence of infection. Influenza type A and B antigen negative. Group A streptococcus screen negative. DIAGNOSTIC STUDIES 1. CT of brain without contrast on October 14, 2017: On my review of the images, there is no evidence of recent large territorial ischemia, hemorrhage, mass or mass effect. 2. Chest x-ray, October 14, 2017: Mild central pulmonary vascular congestion. No acute pulmonary process. 3. Echocardiogram, October 14, 2017: Mildly diminished left ventricular systolic function with an EF o 50-55%. Left ventricular hypertrophy is observed. Trace mitral and tricuspid regurgitation. 4. ECG, 10/14/2017: Sinus bradycardia at 49 beats per minute. ASSESSMENT AND PLAN: Ms. Renner is a 67-year-old [id number] woman with an extensive past medical history admitted to [facility] with a 2-day history of [id number] left arm and leg weakness, as well as nerve and muscle pain affecting both legs and either arm. Due to her multiple vascular risks factors, there is concern the patient has experienced a stroke. Therefore, a neurology consult was requested. Unfortunately, there is functional overlay of the patient's neurological examination, making it impossible to determine whether or not the patient has had a stroke. An accurate assessment of strength cannot be obtained. However, the patient is able to maintain both arms and both legs antigravity for 10 seconds and 5 seconds respectively. Deep tendon reflexes are diminished throughout. However, this could be due to the patient's known history of peripheral neuropathy secondary to diabetes mellitus. Sensory loss to light touch and pinprick is in a nonanatomic distribution. There is no evidence of dysfunction of the upper cerebellar hemispheres. The lower cerebellar hemispheres could not be assessed secondary to pain. The patient's speech is fluent without dysarthria or aphasia. The results of the patient's laboratory data and other diagnostic studies has been reviewed and as documented above. The etiology of the patient's symptoms is unknown. However, given her vascular risk factors of high blood pressure, high cholesterol, insulin-dependent diabetes mellitus, coronary artery disease, and obesity, it is recommended the patient be treated as though she has experienced a stroke. Unfortunately, with the patient's multiple medication allergies, it will be difficult to add and/or adjust medications to achieve adequate control of her various vascular risk factors. RECOMMENDATIONS 1. Bilateral carotid artery ultrasounds will be ordered to assess the extracranial vasculature. 2. Unfortunately, due to the presence of a spinal cord stimulator, the patient is unable to undergo an MRI of the brain or an MRA of the brain. However, performance of those studies will in no way alter the patient's plan of care. 3. Continue Plavix 75 mg by mouth daily for stroke prophylaxis. Ms. Renner has a known allergy to aspirin and other nonsteroidal anti-inflammatory medications, prohibiting her from treatment with other antiplatelet medications. 4. Allow permissive hypertension pending completion of the bilateral carotid ultrasounds. If the carotid ultrasounds do not reveal hemodynamically significant atherosclerosis of the extracranial vasculature, titrate the patient's antihypertensive medications to a goal blood pressure of 130/70 mmHg. 5. Ms. Renner does have hyperlipidemia, which requires treatment. This was discussed with her primary attending, Dr. Foss. He will consider treatment with a lower potency statin medication such as pravastatin at a low dose in an effort to better control the patient's hyperlipidemia. 6. Ms. Renner has insulin-dependent diabetes mellitus. A recent hemoglobin A1c was approximately 7.8. Dr. Foss recommends continuation of her current medications, which are: Insulin glargine 62 units subcutaneously daily and insulin lispro sliding scale. 7. Physical therapy evaluation will be ordered. 8. Defer treatment of the patient's remaining medical comorbidities to the primary care and other services. Thank you for this consultation. I will continue to follow this patient while she remains in the hospital. TIME SPENT: 70 minutes Job#: [id number] VER[place]
[2017-10-16] VITALS (8 sets, daily range): BP systolic 131–152; BP diastolic 58–71
[2017-10-16] MEDS: ONDANSETRON HCL INJ 2 MG/ML VIAL IV PRN ×2 (00:45→08:42)
[2017-10-16] MEDS: HYDROMORPHONE 2MG/ML INJ IV PRN ×3 (00:47→16:35)
[2017-10-16] MEDS: SODIUM CHLORIDE 0.9% 1000ML 1,000 ML IV SCH ×3 (03:15→19:15)
[2017-10-16] MEDS: LEVOTHYROXINE SODIUM 125 MCG TAB PO SCH (05:25)
[2017-10-16] MEDS: LORAZEPAM INJ 2 MG/ML VIAL IV PRN (06:14)
[2017-10-16 06:53] LABS: BASOPHILS % 0.6 % (0.0-1.0); EOSINOPHILS # (AUTO) 0.2 (0.0-0.4); EOSINOPHILS % 2.9 % (0.0-6.0); HEMATOCRIT 35.6 % (34.2-44.1); HEMOGLOBIN 11.3 g/dL (12.0-16.0); LYMPHOCYTES # (AUTO) 1.1 (1.0-3.2); LYMPHOCYTES % 15.2 % (18.0-39.1); MEAN CORPUSCULAR HGB CONC 31.7 g/dL (31-35); MEAN CORPUSCULAR VOLUME 97.5 fL (81-99); MONOCYTES # (AUTO) 0.7 (0.2-0.8); MONOCYTES % 9.6 % (4.4-11.3); NEUTROPHILS # (AUTO) 5.2 (2.1-6.9); NEUTROPHILS % 71.3 % (38.7-80.0); PLATELET COUNT 212 x10e3/uL (140-360); RED BLOOD COUNT 3.65 x10e6/uL (3.6-5.1); RED CELL DISTRIBUTION WIDTH 15.2 % (11.7-14.4)
[2017-10-16 07:21] LABS: ANION GAP 13.3 mmol/L (8-16); CREATININE, SERUM 1.12 mg/dL (0.57-1.11); POTASSIUM 4.3 mmol/L (3.5-5.1)
[2017-10-16] MEDS: INSULIN REGULAR, HUMAN 100 UNIT/1 ML 3ML VIAL SQ SCH ×4 (07:30→20:51)
[2017-10-16] MEDS: ISOSORBIDE MONONITRATE 30 MG TAB CR PO SCH ×2 (08:57→16:33)
[2017-10-16] MEDS: SPIRONOLACTONE 25 MG TAB PO SCH (08:57)
[2017-10-16] MEDS: PANTOPRAZOLE SOD 40 MG TABEC PO SCH (08:58)
[2017-10-16] MEDS: AMLODIPINE BESYLATE 5 MG TAB PO SCH ×2 (08:58→16:32)
[2017-10-16] MEDS: GABAPENTIN 300 MG CAP PO SCH ×3 (08:58→22:07)
[2017-10-16] MEDS: METOPROLOL TARTRATE 25 MG TAB PO SCH ×3 (08:58→22:07)
[2017-10-16] MEDS: ALLOPURINOL 300 MG TAB PO SCH (08:58)
[2017-10-16] MEDS ORDERED: HYDROMORPHONE 2MG/ML INJ IV PRN (18:15)
[2017-10-16] MEDS ORDERED: HYDROMORPHONE 1MG/1ML INJ IV PRN (18:30)
[2017-10-16] MEDS: TRAZODONE HCL 50 MG TAB PO SCH (22:07)
[2017-10-16] MEDS: INSULIN DETEMIR 100 UNIT/ML PEN SQ SCH (22:08)
[2017-10-17 01:11] VITALS: BP 112/54
[2017-10-17] MEDS: SODIUM CHLORIDE 0.9% 1000ML 1,000 ML IV SCH ×2 (03:15→11:15)
[2017-10-17 04:00] VITALS: BP 118/52
[2017-10-17] MEDS: LEVOTHYROXINE SODIUM 125 MCG TAB PO SCH (06:14)
[2017-10-17 08:21] VITALS: BP 148/69
[2017-10-17] MEDS: INSULIN REGULAR, HUMAN 100 UNIT/1 ML 3ML VIAL SQ SCH ×2 (08:38→12:12)
[2017-10-17] MEDS: SPIRONOLACTONE 25 MG TAB PO SCH (08:46)
[2017-10-17] MEDS: METOPROLOL TARTRATE 25 MG TAB PO SCH (08:47)
[2017-10-17] MEDS: ISOSORBIDE MONONITRATE 30 MG TAB CR PO SCH (08:47)
[2017-10-17] MEDS: GABAPENTIN 300 MG CAP PO SCH (08:47)
[2017-10-17] MEDS: AMLODIPINE BESYLATE 5 MG TAB PO SCH (08:47)
[2017-10-17] MEDS: ALLOPURINOL 300 MG TAB PO SCH (08:47)
[2017-10-17] MEDS: PANTOPRAZOLE SOD 40 MG TABEC PO SCH (08:47)
[2017-10-17 11:46] VITALS: BP 138/64
== END 2017-10-17 12:23 | disposition home or self-care (01) ==
LOC: ER 12:57 → EDBEDREQ 19:59 → ERHOLD 20:32 → IMCU 20:36
PROVIDERS: ADMIT Family Medicine; ATTEND Family Medicine
DX: I63.9 Cerebral infarction, unspecified (principal); E86.0 Dehydration; E11.42 Type 2 diabetes mellitus with diabetic polyneuropathy; N17.9 Acute kidney failure, unspecified; M79.1 Myalgia; I25.10 Atherosclerotic heart disease of native coronary artery without angina pectoris; I10 Essential (primary) hypertension; Z85.3 Personal history of malignant neoplasm of breast; Z79.4 Long term (current) use of insulin; E78.5 Hyperlipidemia, unspecified; Z88.0 Allergy status to penicillin; Z88.8 Allergy status to other drugs, medicaments and biological substances; Z96.89 Presence of other specified functional implants; E66.9 Obesity, unspecified; Z68.41 Body mass index [BMI] 40.0-44.9, adult; R20.9 Unspecified disturbances of skin sensation; M10.9 Gout, unspecified
CPT/HCPCS: 36415 ×4; 70450; 71045; 80048 ×2; 80053; 80061; 81001; 82550 ×2; 82553 ×2; 82607; 82948 ×4; 83518; 83605; 83735; 83880; 84207; 84443; 84484 ×2; 85025 ×3; 85610; 85651; 85730; 86140; 87070; 87400; 93005; 93306; 93880; 97116 ×2; 97139 ×2; 97162; 99284; G0378 ×4; G8978; G8979; J1170 ×4; J1642; J2060 ×3; J2405 ×3; J7030 ×3

== ENCOUNTER 2017-10-29 20:57 | Emergency (ER) | payer MEDICARE ==
[~2017-10-29] VITALS: Ht 165.1 cm; Wt 122.0 kg
[~2017-10-29 20:57] MED LIST changes: +ISOSORBIDE MONO30 MG PO; +METOPROLOL TART25 MG PO; +NITROFURANTOIN100 MG PO; +PROMETHAZINE HC25 M1 PO
--- OUTSIDE RECORDS SUMMARY | 2017-10-29 21:00 | XMS REPORT | Continuity of Care Document ---
Author Author [facility] Organization [facility] Address [address] [place] [address] Phone Unavailable Care Team Providers Care Commercial Loan Collection Officer Name Role Phone KRISTY RORDIGUEZ MD PCP Insurance Providers Guarantor Nadia Renner Address [address] [place] [address] Email [email or web address] Payer [employer] Medicare Complete Policy Number [id number] Subscriber's Name Nadia Renner Relationship 18 Self / Same As Patient Group Number [id number] Effective Date 17 Advance Directives Directive Response Recorded Date/Time Does the patient have an advance directive? Yes 10/14/17 9:00pm If yes, is advance directive on file with [facility]? No 10/14/17 9:00pm If not on file with [facility] will patient provide a copy? Yes 10/14/17 9:00pm Do you have a Directive to Physician? No 10/14/17 5:51pm Do you have a Medical Power of Tractor Operator Helper? No 10/14/17 5:51pm Do you have an out of hospital Do Not Resuscitate Order? No 10/14/17 5:51pm Do you have any special needs we should be aware of? No 10/14/17 5:51pm Do you have a support person here with you today? Yes 10/14/17 5:51pm Did patient receive Notice of Privacy Practices? Yes 10/14/17 5:51pm Did patient receive patient rights and responsibilities? Yes 10/14/17 5:51pm Problems No problem information available. Medications Current Home Medications Medication Dose Units Route Directions Days Qty Instructions Start Date Allopurinol 300 Mg Tablet 300 Mg Oral Daily 30 Tab Amlodipine Besylate 5 Mg Tablet 2.5 Mg Oral Twice A Day 30 Tab Clopidogrel Bisulfate (Plavix) 75 Mg Tablet 75 Mg Oral Daily 30 Tab Colchicine (Colcrys) 0.6 Mg Tablet 0.6 Mg Oral As Needed 30 Tab Cranberry 400 Mg Capsule 1 Cap Oral Daily Diphenhydramine Hcl (Benadryl) 25 Mg Capsule 50 Mg Oral Every 4 Hours as needed for Allergy 30 Days 100 Diphenoxylate Hcl/Atropine (Lomotil Tablet) 1 Each Tablet 1 Tab Oral As Needed Furosemide 40 Mg Tablet 40 Mg Oral Daily 30 Tab Gabapentin 300 Mg Capsule 900 Mg Oral Three Times A Day 60 Cap Hydrochlorothiazide 25 Mg Tablet 25 Mg Daily 30 Tab Insulin Glargine (Lantus 3ML Pen) 100 Units/1 Ml Inj 62 Units Subcutaneously Bedtime Insulin Lispro (Humalog) 100 Unit/1 Ml Insuln.pen Subcutaneously Before Meals Isosorbide Mononitrate 20 Mg Tablet 60 Mg Oral Twice A Day 30 Tab Isosorbide Mononitrate (Isosorbide Mononitrate Er) 30 Mg Tab.er.24h 60 Mg Oral Daily 30 Tab Isosorbide Mononitrate (Isosorbide Mononitrate Er) 30 Mg Tab.er.24h 30 Mg Oral Bedtime 30 Tab Lavender Oil 30 Ml Oil 30 Ml Oral Daily Levothyroxine Sodium (Synthroid) 125 Mcg Tab 125 Mcg Oral Today At 6:30AM 30 Tab Liothyronine Sodium 5 Mcg Tablet 25 Mg Oral Daily Metoprolol Tartrate 25 Mg Tablet 25 Mg Oral Three Times A Day Mirabegron (Myrbetriq) 50 Mg Tab.er.24h 50 Mg Oral Daily Nitrofurantoin Macrocrystal (Nitrofurantoin) 100 Mg Capsule 100 Mg Oral Twice A Day Nitroglycerin 0.4 Mg Tab.subl 0.4 Mg Sublingual Every 5 Minutes as needed for Chest Pain Omeprazole 40 Mg Capsule.dr 40 Mg Oral Daily Promethazine Hcl 25 Mg Tablet 25 Mg Oral Every 4 Hours as needed for Nausea Spironolactone 25 Mg Tablet 25 Mg Oral Daily 60 Tab Tea Tree Oil 30 Ml Oil 30 Mg Oral Daily Temazepam 30 Mg Capsule Bedtime Tizanidine Hcl 4 Mg Tablet 4 Mg Oral Bedtime Trazodone Hcl 50 Mg Tablet 100 Mg Oral Daily 30 Tab Past Home Medications Medication Directions Ordered Status Insulin Glargine (Lantus 3ML Pen) 100 Units/1 Ml Inj, Subcutaneously Before Meals Discontinued Temazepam 15 Mg Capsule, 15 Mg Oral Bedtime Discontinued Social History Social History Problem Response Recorded Date/Time Onset Date Status Hx Psychiatric Problems No 10/14/2017 9:00pm Not Applicable Not Applicable Hx Eating Disorder No 10/14/2017 9:00pm Not Applicable Not Applicable Hx Depression No 10/14/2017 9:00pm Not Applicable Not Applicable Hx Alcohol Use No 10/14/2017 9:00pm Not Applicable Not Applicable Hx Substance Use Treatment No 10/14/2017 9:00pm Not Applicable Not Applicable Hx Physical Abuse No 10/14/2017 9:00pm Not Applicable Not Applicable Smoking Status Start Date Stop Date Never Smoker Hospital Discharge Instructions No hospital discharge instruction information available. Plan of Care Discharge Date 10/17/17 12:23pm Disposition HOME, SELF-CARE Instructions/Education Provided Dehydration - Adult Prescriptions See Medication Section Additional Instructions/Education DIABETIC/CARDIAC DIET( LOW SALT, LOW CHOLESTEROL, LOW SUGAR) ACTIVITY TOLERATED DANISH FOLLOW UP APPOINTMENT WITH PRIMARY CARE PROVIDER IN 1-2 WEEKS Functional Status Query Response Date Recorded FUNCTIONAL STATUS . October 16, 2017 11:39am Assistive Devices None October 14, 2017 10:14pm Ambulation Ability Independent October 14, 2017 10:14pm Toileting Ability Standby Assistance October 16, 2017 6:30pm Allergies, Adverse Reactions, Alerts Allergen Type Severity [...] Signs Acute Vital Signs Vital Response Date/Time Temperature (Fahrenheit) 98.1 degrees F (97.6 - 99.5) 10/17/2017 11:46am Pulse Pulse Rate (adult) 61 bpm (60 - 90) 10/17/2017 11:46am Respiratory Rate 20 bpm (12 - 24) 10/17/2017 11:46am Blood Pressure 138/64 mm Hg 10/17/2017 11:46am Height 5 ft 5 in 10/14/2017 1:33pm Weight 269 lb 10/14/2017 1:33pm Body Mass Index 44.8 kg/m^2 10/14/2017 9:00pm Results Laboratory Results Test Name Result Units Flags Reference Collection Date/Time Result Date/ Time Comments Urine Fine Granular Casts 1-5 H 0 10/06/2017 12:55pm 10/06/2017 1: 29pm Lipase 14 U/L 8-78 10/06/2017 12:35pm 10/06/2017 1:21pm White Blood Count 7.26 x10e3/uL 4.8-10.8 10/16/2017 6:15am 10/16/2017 7 :10am Red Blood Count 3.65 x10e6/uL 3.6-5.1 10/16/2017 6:1510/16/2017 7: 10am Hemoglobin 11.3 g/dL L 12.0-16.0 10/16/2017 6:1510/16/2017 7:10am Hematocrit 35.6 % 34.2-44.1 10/16/2017 6:1510/16/2017 7:10am Mean Corpuscular Volume 97.5 fL 81-99 10/16/2017 6:1510/16/2017 7: 10am Mean Corpuscular Hemoglobin 31.0 pg 28-32 10/16/2017 6:1510/16/2017 7:10am Mean Corpuscular Hemoglobin Concent 31.7 g/dL 31-35 10/16/2017 6:1510/16/2017 7:10am Red Cell Distribution Width 15.2 % H 11.7-14.4 10/16/2017 6:152017 7:10am Platelet Count 212 x10e3/uL 140-360 10/16/2017 6:1510/16/2017 7: 10am Neutrophils (%) (Auto) 71.3 % 38.7-80.0 10/16/2017 6:1510/16/2017 7: 10am Lymphocytes (%) (Auto) 15.2 % L 18.0-39.1 10/16/2017 6:1510/16/2017 7 :10am Monocytes (%) (Auto) 9.6 % 4.4-11.3 10/16/2017 6:1510/16/2017 7: 10am Eosinophils (%) (Auto) 2.9 % 0.0-6.0 10/16/2017 6:15am 10/16/2017 7: 10am Basophils (%) (Auto) 0.6 % 0.0-1.0 10/16/2017 6:15am 10/16/2017 7:10am IM GRANULOCYTES % 0.4 % 0.0-1.0 10/16/2017 6:15am 10/16/2017 7:10am Neutrophils # (Auto) 5.2 2.1-6.9 10/16/2017 6:15am 10/16/2017 7:10am Lymphocytes # (Auto) 1.1 1.0-3.2 10/16/2017 6:15am 10/16/2017 7:10am Monocytes # (Auto) 0.7 0.2-0.8 10/16/2017 6:15am 10/16/2017 7:10am Eosinophils # (Auto) 0.2 0.0-0.4 10/16/2017 6:15am 10/16/2017 7:10am Basophils # (Auto) 0.0 0.0-0.1 10/16/2017 6:15am 10/16/2017 7:10am Absolute Immature Granulocyte (auto 0.03 x10e3/uL 0-0.1 10/16/2017 6: 15am 10/16/2017 7:10am Erythrocyte Sedimentation Rate 58 mm/hr H 0-20 10/15/2017 7:50am 2017 8:39am Prothrombin Time 11.9 seconds 11.9-14.5 10/14/2017 5:01pm 10/14/2017 5: 36pm Prothromb Time International Ratio 0.95 10/14/2017 5:01pm 2017 5:36pm Oral Anticoagulant Therapy INR Values: 1. Low Intensity Therapy 1.5 - 2.0 2. Moderate Intensity Therapy 2.0 - 3.0 3. High Intensity Therapy(1) 2.5 - 3.5 4. High Intensity Therapy(2) 3.0 - 4.0 5. Panic Value INR > 5.0 Activated Partial Thromboplast Time 26.8 seconds 23.8-35.5 10/14/2017 5: 01pm 10/14/2017 5:36pm Urine Color YELLOW YELLOW 10/14/2017 7:15pm 10/14/2017 7:28pm Urine Clarity CLEAR CLEAR 10/14/2017 7:15pm 10/14/2017 7:28pm Urine Specific [place] 1.010 1.010-1.025 10/14/2017 7:15pm 2017 7:28pm Urine pH 6.5 5 - 7 10/14/2017 7:15pm 10/14/2017 7:28pm Urine Leukocyte Esterase NEGATIVE NEGATIVE 10/14/2017 7:15pm 2017 7:28pm Urine Nitrite NEGATIVE NEGATIVE 10/14/2017 7:15pm 10/14/2017 7:28pm Urine Protein NEGATIVE NEGATIVE 10/14/2017 7:15pm 10/14/2017 7:28pm Urine Glucose (UA) NEGATIVE NEGATIVE 10/14/2017 7:15pm 10/14/2017 7: 28pm Urine Ketones NEGATIVE NEGATIVE 10/14/2017 7:15pm 10/14/2017 7:28pm Urine Urobilinogen 0.2 mg/dL 0.2 - 1 10/14/2017 7:15pm 10/14/2017 7: 28pm Urine Bilirubin NEGATIVE NEGATIVE 10/14/2017 7:15pm 10/14/2017 7: 28pm Urine Blood NEGATIVE NEGATIVE 10/14/2017 7:15pm 10/14/2017 7:28pm Urine WBC 0-5 /HPF 0-5 10/14/2017 7:15pm 10/14/2017 7:46pm Urine RBC NONE /HPF 0-5 10/14/2017 7:15pm 10/14/2017 7:46pm Urine Bacteria NONE /HPF NONE 10/14/2017 7:15pm 10/14/2017 7:46pm Urine Epithelial Cells FEW /LPF NONE 10/14/2017 7:15pm 10/14/2017 7: 46pm Sodium Level 139 mmol/L 136-145 10/16/2017 6:15am 10/16/2017 7:22am Potassium Level 4.3 mmol/L 3.5-5.1 10/16/2017 6:15am 10/16/2017 7:22am Chloride Level 100 mmol/L 98-107 10/16/2017 6:15am 10/16/2017 7:22am Influenza Virus Types A,B Antigen NEGATIVE NEGATIVE 10/14/2017 4:40pm 10/14/2017 5:42pm Carbon Dioxide Level 30 mmol/L H 22-29 10/16/2017 6:15am 10/16/2017 7: 22am Anion Gap 13.3 mmol/L 8-16 10/16/2017 6:15am 10/16/2017 7:22am Blood Urea Nitrogen 39 mg/dL H 7-26 10/16/2017 6:15am 10/16/2017 7:22am Creatinine 1.12 mg/dL H 0.57-1.11 10/16/2017 6:15am 10/16/2017 7:22am BUN/Creatinine Ratio 35 H 6-25 10/16/2017 6:15am 10/16/2017 7:22am Estimat Glomerular Filtration Rate 49 ML/MIN L 60- 10/16/2017 6:15am 09/2017 7:22am Ranges were taken from the National Kidney Disease Education Program and the National Kidney Foundation literature. Reference ranges: 60 or greater: Normal 16-59 (for 3 consecutive months): Chronic kidney disease 15 or less: Kidney failure Glucose Level 122 mg/dL H 74-118 10/16/2017 6:15am 10/16/2017 7:22am Calcium Level 9.0 mg/dL 8.4-10.2 10/16/2017 6:15am 10/16/2017 7:22am Bedside Glucose 137 mg/dL H 70-120 10/17/2017 10:57am 10/17/2017 11: 58am Meter ID: [id number] Lactic Acid Level 5.1 MG/DL 4.5-19.8 10/14/2017 5:01pm 10/14/2017 5: 42pm Magnesium Level 2.2 MG/DL H 1.3-2.1 10/14/2017 5:01pm 10/14/2017 5:49pm Total Bilirubin 1.0 mg/dL 0.2-1.2 10/14/2017 5:01pm 10/14/2017 5:49pm Aspartate Amino Transf (AST/SGOT) 19 IU/L 5-34 10/14/2017 5:01pm 2017 5:49pm Alanine Aminotransferase (ALT/SGPT) 13 IU/L 0-55 10/14/2017 5:01pm 5:49pm Total Protein 7.7 g/dL 6.5-8.1 10/14/2017 5:01pm 10/14/2017 5:49pm Albumin 3.9 g/dL 3.5-5.0 10/14/2017 5:01pm 10/14/2017 5:49pm Globulin 3.8 g/dL H 2.3-3.5 10/14/2017 5:01pm 10/14/2017 5:49pm Albumin/Globulin Ratio 1.0 0.8-2.0 10/14/2017 5:01pm 10/14/2017 5: 49pm Alkaline Phosphatase 90 IU/L 40-150 10/14/2017 5:01pm 10/14/2017 5: 49pm Triglycerides Level 143 MG/DL 0-149 10/15/2017 6:05am 10/15/2017 6: 47am Cholesterol Level 219 MD/DL H 0-199 10/15/2017 6:05am 10/15/2017 6:47am Less than 200 mg/dL Low Risk 201 - 239 mg/dL Borderline Risk 240 mg/dl and greater High Risk LDL Cholesterol 142 MG/DL H 60-130 10/15/2017 6:05am 10/15/2017 6:47am HDL Cholesterol 48 MG/DL 40-60 10/15/2017 6:05am 10/15/2017 6:47am Cholesterol/HDL Ratio 4.6 H 3.0-3.6 10/15/2017 6:05am 10/15/2017 6: 47am B-Type Natriuretic Peptide 29.8 pg/mL 0-100 10/14/2017 5:01pm 2017 5:55pm Creatine Kinase 161 IU/L 29-168 10/15/2017 8:00am 10/15/2017 8:46am Creatine Kinase MB 1.00 ng/mL 0-5.0 10/15/2017 8:00am 10/15/2017 8: 56am Troponin I < 0.001 ng/mL 0-0.300 10/15/2017 8:00am 10/15/2017 8:56am Vitamin B12 Level 422 pg/mL 213-816 10/15/2017 7:50am 10/15/2017 8: 57am Thyroid Stimulating Hormone (TSH) 0.151 uIU/mL L 0.350-4.940 10/14/2017 5 :01pm 10/14/2017 6:06pm C-Reactive Protein 1.5 mg/L 0.0-4.9 10/15/2017 7:50am 10/16/2017 12: 55pm Performed at: [facility] [id number] Enterprise Systems Engineer: Italo Joyner MD, Phone: [phone] Group A Streptococcus Screen NEGATIVE NEGATIVE 10/14/2017 7:35pm 7:49pm Procedures Procedure Status Date Provider(s) Cystoscopy with retrograde pyelography Completed 08/26/17 DHARA CHAVIRA MD Cystoscopy with retrograde pyelography Completed 10/02/17 DHARA CHAVIRA MD X-ray of chest, two views Active 08/24/[address] of abdomen and pelvis without contrast Active 10/06/17 NIRALI VALDEZ MD Computed tomography of brain without radiopaque contrast Active 10/14/17 ANNE WILSON FORM PRESSER Encounters Encounter Location Arrival/Admit Date Discharge/Depart Date Attending Provider Discharged Inpatient (obs) [facility] 10/14/17 8:32pm 11/01 12:23pm KRISTY RODRIGUEZ MD Departed Emergency Room [facility] 10/06/17 10:35am 10/06 3:26pm NIRALI VALDEZ MD Registered Surgical Day Care [facility] 10/02/17 10:16am DHARA CHAVIRA MD Registered Clinic [facility] 09/17/17 8:53am DHARA CHAVIRA MD Registered Surgical Day Care [facility] 08/26/17 5:09am DHARA CHAVIRA MD Registered Clinic [facility] 06/17/17 1:35pm DHARA CHAVIRA MD
[2017-10-29 22:33] LABS: BASOPHILS % 0.4 % (0.0-1.0); EOSINOPHILS # (AUTO) 0.1 (0.0-0.4); EOSINOPHILS % 1.1 % (0.0-6.0); HEMATOCRIT 39.8 % (34.2-44.1); HEMOGLOBIN 13.4 g/dL (12.0-16.0); LYMPHOCYTES # (AUTO) 1.7 (1.0-3.2); MEAN CORPUSCULAR HEMOGLOBIN 31.5 pg (28-32); MEAN CORPUSCULAR HGB CONC 33.7 g/dL (31-35); MEAN CORPUSCULAR VOLUME 93.6 fL (81-99); MONOCYTES # (AUTO) 0.5 (0.2-0.8); NEUTROPHILS # (AUTO) 4.9 (2.1-6.9); NEUTROPHILS % 68.2 % (38.7-80.0); PLATELET COUNT 265 x10e3/uL (140-360); RED BLOOD COUNT 4.25 x10e6/uL (3.6-5.1); RED CELL DISTRIBUTION WIDTH 14.7 % (11.7-14.4)
[2017-10-29 22:36] LABS: INR 1.02; PROTHROMBIN TIME 12.6 seconds (11.9-14.5)
[2017-10-29 22:38] LABS: PARTIAL THROMBOPLASTIN TIME 63.3 seconds (23.8-35.5)
[2017-10-29 22:47] LABS: ALANINE AMINOTRANSFERASE 17 IU/L (0-55); ALKALINE PHOSPHATASE 85 IU/L (40-150); ANION GAP 14.1 mmol/L (8-16); BLOOD UREA NITROGEN 35 mg/dL (7-26); BUN/CREATININE RATIO 38 (6-25); CALCIUM 9.4 mg/dL (8.4-10.2); CARBON DIOXIDE 27 mmol/L (22-29); CHLORIDE 103 mmol/L (98-107); CREATINE KINASE 104 IU/L (29-168); CREATININE, SERUM 0.91 mg/dL (0.57-1.11); EST GLOMERULAR FILTRATION RATE > 60 ML/MIN (60-); GLUCOSE 108 mg/dL (74-118); MAGNESIUM 1.9 MG/DL (1.3-2.1); POTASSIUM 4.1 mmol/L (3.5-5.1); SODIUM 140 mmol/L (136-145)
[2017-10-29] MEDS ORDERED: HYDROMORPHONE 1MG/1ML INJ IV STA (22:57)
[2017-10-29] MEDS ORDERED: ONDANSETRON HCL INJ 2 MG/ML VIAL IV STA (22:57)
[2017-10-29] MEDS ORDERED: SODIUM CHLORIDE 0.9% 500ML 500 ML IV ONE (23:00)
[2017-10-29 23:17] LABS: ERYTHROCYTE SEDIMENTATION RATE 48 mm/hr (0-20)
[2017-10-30] MEDS ORDERED: HEPARIN SOD (PORCINE) 1000 UNIT/ML SDV ONE (00:37)
[2017-10-30] MEDS ORDERED: HEPARIN SOD (PORCINE) 1000 UNIT/ML 10ML MDV IV ONE ×2 (00:45→06:15)
== END 2017-10-30 03:24 | disposition home or self-care (01) ==
LOC: ER 20:57
DX: R52 Pain, unspecified (principal); G89.29 Other chronic pain
CPT/HCPCS: 36415; 80053; 82550; 82553; 83735; 84484; 85025; 85610; 85651; 85730; 93005; 99283; J1170; J1644; J2405; J7040

== ENCOUNTER → 2017-11-17 | Day surgery (SDC) | payer MEDICARE ==
--- NOTE | 2017-11-11 10:00 | Diagnostic Imaging Report ---
PROCEDURE: Frontal and lateral views of the chest. COMPARISON: Portable chest 10/14/2017. INDICATIONS: PREOPERATIVE CHEST XRAY FOR EGD FINDINGS: Lines/tubes: Left internal jugular tunneled chest port with tip projecting over the expected region of the superior vena cava. Metallic tipped catheter with tip projecting over the expected region of the mid thoracic spine. Lungs: The lungs are well inflated and clear. There is no evidence of pneumonia or pulmonary edema. Pleura: There is no pleural effusion or pneumothorax. Heart and mediastinum: The heart and the mediastinum are normal. Bones: No acute bony abnormality. Degenerative changes of the thoracic spine. Soft tissues: Surgical clips are present in the lower neck. IMPRESSION: No acute radiographic abnormality. Dictated by: Og Molina M.D. on 11/11/2017 at 10:01 Electronically approved by: Og Molina M.D. on 11/11/2017 at 10:01
[~2017-11-17] MED LIST changes: +CHROMIUM PIC1000 MCG PO; +COQ-10100 MG PO; +EYE HEALTH PO; +FENTANYL CITRATE/PF 100MCG/2 ML INJ ONE; +FERROUS SULFAT324 MG PO; +FLAGYL250 MG PO; +HEPARIN 500 UNITS/5ML MDV INJ ONE; +LETROZOLE2.5 MG PO; +LEVOTHYROXINE150 MCG PO; +LOSARTAN POTASS25 MG PO; +MAGNESIUM OXID400 MG PO; +MIDAZOLAM HCL 2 MG/2 ML VIAL ONE; +ONDANSETRON HCL INJ 2 MG/ML VIAL ONE; +PANTOPRAZOLE SO40 MG PO; +PHENAZOPYRIDIN200 MG PO; -TEMAZEPAM30 MG; +TEMAZEPAM30 MG PO; +VITAMIN C500 M1 PO; +VITAMIN D35000 UNIT PO
--- OUTSIDE RECORDS SUMMARY | 2017-11-17 10:43 | XMS REPORT | Continuity of Care Document ---
Author Author [facility] Organization [facility] Address [address] [place] [address] Phone Unavailable Care Team Providers Care Mat Repairer Name Role Phone KRISTY RODRIGUEZ MD PCP Insurance Providers Guarantor Nadia Renner Address [address] [place] [address] Email [email or web address] Payer [employer] Medicare Complete Policy Number [id number] Subscriber's Name Nadia Renner Relationship 18 Self / Same As Patient Group Number [id number] Effective Date 17 Advance Directives Directive Response Recorded Date/Time Does the patient have an advance directive? Yes 10/14/17 9:00pm If yes, is advance directive on file with [facility]? No 10/14/17 9:00pm If not on file with [facility] will patient provide a copy? Yes 10/14/17 9:00pm Do you have a Directive to Physician? No 10/29/17 9:47pm Do you have a Medical Power of Artistic Associate? No 10/29/17 9:47pm Do you have an out of hospital Do Not Resuscitate Order? No 10/29/17 9:47pm Do you have any special needs we should be aware of? No 10/29/17 9:47pm Do you have a support person here with you today? Yes 10/29/17 9:47pm Did patient receive Notice of Privacy Practices? Yes 10/29/17 9:47pm Did patient receive patient rights and responsibilities? Yes 10/29/17 9:47pm Problems No problem information available. Medications Current [...] Applicable Smoking Status Start Date Stop Date Unknown if ever smoked Hospital Discharge Instructions No hospital discharge instruction information available. Plan of Care Discharge Date 10/30/17 3:24am Disposition HOME, SELF-CARE Condition at Discharge Stable Instructions/Education Provided Chronic Pain Forms Provided Work/School Excuse Prescriptions See Medication Section Referrals KRISTY RODRIGUEZ MD Order Date: In AM Address: [address] [place] [id number] Additional Instructions/Education FOLLOW-UP WITH DR RODRIGUEZ, CALL FOR APPOINTMENT Functional Status No functional status information available. [...] 10/17/2017 11:46am Height 5 ft 5 in 10/29/2017 9:14pm Weight 269 lb 10/29/2017 9:14pm Body Mass Index 44.8 kg/m^2 10/29/2017 9:14pm Results Laboratory Results Test Name Result Units Flags Reference Collection Date/Time Result Date/ Time Comments Urine Fine Granular Casts 1-5 H 0 10/06/2017 12:55pm 10/06/2017 1: 29pm Lipase 14 U/L 8-78 10/06/2017 12:35pm 10/06/2017 1:21pm Urine Color YELLOW YELLOW 10/14/2017 7:15pm 10/14/2017 7:28pm Urine Clarity CLEAR CLEAR 10/14/2017 7:15pm 10/14/2017 7:28pm Urine Specific [place] 1.010 1.010-1.025 10/14/2017 7:15pm 2017 7:28pm Urine [...] /LPF NONE 10/14/2017 7:15pm 10/14/2017 7: 46pm Influenza Virus Types A,B Antigen NEGATIVE NEGATIVE 10/14/2017 4:40pm 10/14/2017 5:42pm Bedside Glucose 137 mg/dL H 70-120 10/17/2017 10:57am 10/17/2017 11: 58am Meter ID: [id number] Lactic Acid Level 5.1 MG/DL 4.5-19.8 10/14/2017 5:01pm 10/14/2017 5: 42pm Triglycerides Level 143 MG/DL 0-149 10/15/2017 6:05am [...] 29.8 pg/mL 0-100 10/14/2017 5:01pm 2017 5:55pm Vitamin B12 Level 422 pg/mL 213-816 10/15/2017 7:50am 10/15/2017 8: 57am Thyroid Stimulating Hormone (TSH) 0.151 uIU/mL L 0.350-4.940 10/14/2017 5 :01pm 10/14/2017 6:06pm Vitamin B6 Level 8.8 ug/L 2.0-32.8 10/15/2017 7:50am 10/20/2017 5:46am This test was developed and its performance characteristics determined by [facility]. It has not been cleared or approved by the Food and Drug Administration. Performed at: [address] [id number] Vein Access Technician: Sunday Alejandro MD, Phone: [phone] C-Reactive Protein 1.5 mg/L 0.0-4.9 10/15/2017 7:50am 10/16/2017 12: 55pm Performed at: [address] [id number] Vein Access Technician: Italo Joyner MD, Phone: [phone] Group A Streptococcus Screen NEGATIVE NEGATIVE 10/14/2017 7:35pm 7:49pm White Blood Count 7.18 x10e3/uL 4.8-10.8 10/29/2017 9:10/29/2017 10:34pm Red Blood Count 4.25 x10e6/uL 3.6-5.1 10/29/2017 9:10/29/2017 10: 34pm Hemoglobin 13.4 g/dL 12.0-16.0 10/29/2017 9:10/29/2017 10:34pm Hematocrit 39.8 % 34.2-44.1 10/29/2017 9:10/29/2017 10:34pm Mean Corpuscular Volume 93.6 fL 81-99 10/29/2017 9:10/29/2017 10: 34pm Mean Corpuscular Hemoglobin 31.5 pg 28-32 10/29/2017 9:10/29/2017 10:34pm Mean Corpuscular Hemoglobin Concent 33.7 g/dL 31-35 10/29/2017 9:10/29/2017 10:34pm Red Cell Distribution Width 14.7 % H 11.7-14.4 10/29/2017 9:2017 10:34pm Platelet Count 265 x10e3/uL 140-360 10/29/2017 9:10/29/2017 10: 34pm Neutrophils (%) (Auto) 68.2 % 38.7-80.0 10/29/2017 9:10/29/2017 10 :34pm Lymphocytes (%) (Auto) 23.0 % 18.0-39.1 10/29/2017 9:10/29/2017 10 :34pm Monocytes (%) (Auto) 7.0 % 4.4-11.3 10/29/2017 9:10/29/2017 10: 34pm Eosinophils (%) (Auto) 1.1 % 0.0-6.0 10/29/2017 9:10/29/2017 10: 34pm Basophils (%) (Auto) 0.4 % 0.0-1.0 10/29/2017 9:10/29/2017 10: 34pm IM GRANULOCYTES % 0.3 % 0.0-1.0 10/29/2017 9:10/29/2017 10:34pm Neutrophils # (Auto) 4.9 2.1-6.9 10/29/2017 9:20pm 10/29/2017 10: 34pm Lymphocytes # (Auto) 1.7 1.0-3.2 10/29/2017 9:20pm 10/29/2017 10: 34pm Monocytes # (Auto) 0.5 0.2-0.8 10/29/2017 9:20pm 10/29/2017 10:34pm Eosinophils # (Auto) 0.1 0.0-0.4 10/29/2017 9:20pm 10/29/2017 10: 34pm Basophils # (Auto) 0.0 0.0-0.1 10/29/2017 9:20pm 10/29/2017 10:34pm Absolute Immature Granulocyte (auto 0.02 x10e3/uL 0-0.1 10/29/2017 9: 20pm 10/29/2017 10:34pm Erythrocyte Sedimentation Rate 48 mm/hr H 0-20 10/29/2017 9:20pm 2017 11:17pm Prothrombin Time 12.6 seconds 11.9-14.5 10/29/2017 9:10/29/2017 10 :47pm Prothromb Time International Ratio 1.02 10/29/2017 9:20pm 2017 10:47pm Oral Anticoagulant Therapy INR Values: 1. Low Intensity Therapy 1.5 - 2.0 2. Moderate Intensity Therapy 2.0 - 3.0 3. High Intensity Therapy(1) 2.5 - 3.5 4. High Intensity Therapy(2) 3.0 - 4.0 5. Panic Value INR > 5.0 Activated Partial Thromboplast Time 63.3 seconds H 23.8-35.5 10/29/2017 9 :2010/29/2017 10:47pm Sodium Level 140 mmol/L 136-145 10/29/2017 9:20pm 10/29/2017 10:47pm Potassium Level 4.1 mmol/L 3.5-5.1 10/29/2017 9:20pm 10/29/2017 10: 47pm Chloride Level 103 mmol/L 98-107 10/29/2017 9:20pm 10/29/2017 10:47pm Carbon Dioxide Level 27 mmol/L 22-29 10/29/2017 9:20pm 10/29/2017 10: 47pm Anion Gap 14.1 mmol/L 8-16 10/29/2017 9:2010/29/2017 10:47pm Blood Urea Nitrogen 35 mg/dL H 7-26 10/29/2017 9:2010/29/2017 10: 47pm Creatinine 0.91 mg/dL 0.57-1.11 10/29/2017 9:20pm 10/29/2017 10:47pm BUN/Creatinine Ratio 38 H 6-25 10/29/2017 9:2010/29/2017 10:47pm Estimat Glomerular Filtration Rate > 60 ML/MIN 60- 10/29/2017 9:20 10:47pm Ranges were taken from the National Kidney Disease Education Program and the National Kidney Foundation literature. Reference ranges: 60 or greater: Normal 16-59 (for 3 consecutive months): Chronic kidney disease 15 or less: Kidney failure Glucose Level 108 mg/dL 74-118 10/29/2017 9:20pm 10/29/2017 10:47pm Calcium Level 9.4 mg/dL 8.4-10.2 10/29/2017 9:10/29/2017 10:47pm Magnesium Level 1.9 MG/DL 1.3-2.1 10/29/2017 9:2010/29/2017 10:47pm Total Bilirubin 0.9 mg/dL 0.2-1.2 10/29/2017 9:20pm 10/29/2017 10:47pm Aspartate Amino Transf (AST/SGOT) 21 IU/L 5-34 10/29/2017 9:202017 10:47pm Alanine Aminotransferase (ALT/SGPT) 17 IU/L 0-55 10/29/2017 9:20 10:47pm Total Protein 7.9 g/dL 6.5-8.1 10/29/2017 9:20pm 10/29/2017 10:47pm Albumin 4.0 g/dL 3.5-5.0 10/29/2017 9:10/29/2017 10:47pm Globulin 3.9 g/dL H 2.3-3.5 10/29/2017 9:20pm 10/29/2017 10:47pm Albumin/Globulin Ratio 1.0 0.8-2.0 10/29/2017 9:2010/29/2017 10: 47pm Alkaline Phosphatase 85 IU/L 40-150 10/29/2017 9:20pm 10/29/2017 10: 47pm Creatine Kinase 104 IU/L 29-168 10/29/2017 9:20pm 10/29/2017 10:47pm Creatine Kinase MB 1.50 ng/mL 0-5.0 10/29/2017 9:20pm 10/29/2017 10: 53pm Troponin I 0.006 ng/mL 0-0.300 10/29/2017 9:20pm 10/29/2017 10:53pm Procedures Procedure Status Date Provider(s) CYSTOSCOPY & URETER CATHETER Completed 08/26/17 DHARA CHAVIRA MD Cystoscopy with retrograde pyelography Completed 10/02/17 DHARA CHAVIRA MD X-ray of chest, two views Active 08/24/[address] of abdomen and pelvis without contrast Active 10/06/17 NIRALI VALDEZ MD Computed tomography of brain without radiopaque contrast Active 10/14/17 ANNE WILSON MAINTENANCE DEPARTMENT MANAGER Encounters Encounter Location Arrival/Admit Date Discharge/Depart Date Attending Provider Departed Emergency Room [facility] 10/29/17 8:57pm 3:24am BOSTON SALEEM MD Discharged Inpatient (obs) [facility] 10/14/17 8:32pm 11/01 12:23pm KRISTY RODRIGUEZ MD Departed Emergency Room [facility] 10/06/17 10:35am 10/06 3:26pm NIRALI [...]
[2017-11-17 14:27] LABS: INR 0.97; PROTHROMBIN TIME 12.1 seconds (11.9-14.5)
--- NOTE | 2017-11-17 16:25 | Operative Report ---
DATE OF PROCEDURE: November 17, 2017 REFERRING PHYSICIAN: Dr. Kristy Rodriguez PROCEDURE PERFORMED: Esophagogastroduodenoscopy with biopsies and esophageal dilatation. INDICATIONS FOR ESOPHAGOGASTRODUODENOSCOPY: Dysphagia. MEDICATION: Patient was done under MAC. Please see anesthesiologist's note. PROCEDURE: With the patient in left lateral decubitus position, flexible fiberoptic Olympus gastroscope was introduced into the esophagus under direct visualization without any difficulty. There was some patchy erythema noted in distal esophagus. The GE junction was somewhat nodular. It was biopsied and was dilated to size 52-Georgian Welch. The scope was then advanced with ease into the stomach. Mucosa overlying the antrum and the body revealed some patchy erythema and moderate edema, and biopsies were obtained and sent to stain for H. pylori. Approximately 1.2 cm submucosal lesion was noted in the distal antrum (?) Biopsies were obtained. Pylorus was intubated with ease and the scope was advanced all the way to the 2nd portion of the duodenum. The scope was then withdrawn slowly. Mucosa overlying the proximal 2nd portion and the duodenal bulb appeared to be within normal limits. The scope was then withdrawn back into the stomach and retroflexed and mucosa overlying the fundus and the cardia appeared to be within normal limits. The scope was then straightened out. The stomach was decompressed. Scope was subsequently withdrawn. Patient tolerated the procedure well. IMPRESSION: 1. Mild distal esophagitis. 2. Mild stricture at gastroesophageal junction, somewhat nodular, biopsied and dilated to size 52-Georgian Welch. 3. Gastritis biopsied. Biopsy sent to stain for H. pylori. 4. Approximately 1.2 cm submucosal lesion distal antrum (?) lipoma, biopsied. PLAN: Follow up histology. Initiate Protonix 40 mg 1 p.o. q.a.m. a.c. Job#: [id number] cc:KRISTY RODRIGUEZ MD
== END | disposition home or self-care (01) ==
LOC: OR 10:41
PROVIDERS: ATTEND Internal Medicine Gastroenterology
DX: K22.2 Esophageal obstruction (principal); K29.70 Gastritis, unspecified, without bleeding; K20.9 Esophagitis, unspecified; K21.9 Gastro-esophageal reflux disease without esophagitis; K31.9 Disease of stomach and duodenum, unspecified; E11.22 Type 2 diabetes mellitus with diabetic chronic kidney disease; I12.9 Hypertensive chronic kidney disease with stage 1 through stage 4 chronic kidney disease, or unspecified chronic kidney disease; N18.9 Chronic kidney disease, unspecified; G62.9 Polyneuropathy, unspecified; I25.10 Atherosclerotic heart disease of native coronary artery without angina pectoris; E66.01 Morbid (severe) obesity due to excess calories; I48.91 Unspecified atrial fibrillation; Z01.818 Encounter for other preprocedural examination; Z79.02 Long term (current) use of antithrombotics/antiplatelets; Z79.4 Long term (current) use of insulin; Z68.41 Body mass index [BMI] 40.0-44.9, adult; Z85.3 Personal history of malignant neoplasm of breast; Z95.5 Presence of coronary angioplasty implant and graft
CPT/HCPCS: 36415; 43239; 43450; 71046; 82948; 85610; 85730; 88305; 88312; J2250; J2405

== ENCOUNTER 2017-11-30 17:58 | Observation (INO) | payer MEDICARE ==
[~2017-11-30] VITALS: Ht 165.1 cm; Wt 121.8 kg
[~2017-11-30 17:58] MED LIST changes: -CHROMIUM PIC1000 MCG PO; -COQ-10100 MG PO; -EYE HEALTH PO; -FENTANYL CITRATE/PF 100MCG/2 ML INJ ONE; -FERROUS SULFAT324 MG PO; -FLAGYL250 MG PO; -HEPARIN 500 UNITS/5ML MDV INJ ONE; -LETROZOLE2.5 MG PO; -LEVOTHYROXINE150 MCG PO; -LOSARTAN POTASS25 MG PO; -MAGNESIUM OXID400 MG PO; -MIDAZOLAM HCL 2 MG/2 ML VIAL ONE; -ONDANSETRON HCL INJ 2 MG/ML VIAL ONE; -PANTOPRAZOLE SO40 MG PO; -PHENAZOPYRIDIN200 MG PO; +TEMAZEPAM30 MG; -TEMAZEPAM30 MG PO; -VITAMIN C500 M1 PO; -VITAMIN D35000 UNIT PO
[2017-11-30 19:47] LABS: BASOPHILS % 0.3 % (0.0-1.0); EOSINOPHILS # (AUTO) 0.1 (0.0-0.4); EOSINOPHILS % 0.8 % (0.0-6.0); HEMATOCRIT 36.6 % (34.2-44.1); HEMOGLOBIN 12.4 g/dL (12.0-16.0); LYMPHOCYTES % 17.3 % (18.0-39.1); MEAN CORPUSCULAR HEMOGLOBIN 31.8 pg (28-32); MEAN CORPUSCULAR HGB CONC 33.9 g/dL (31-35); MEAN CORPUSCULAR VOLUME 93.8 fL (81-99); MONOCYTES # (AUTO) 0.7 (0.2-0.8); MONOCYTES % 11.6 % (4.4-11.3); NEUTROPHILS # (AUTO) 4.2 (2.1-6.9); NEUTROPHILS % 69.7 % (38.7-80.0); PLATELET COUNT 219 x10e3/uL (140-360)
[2017-11-30 19:53] LABS: INR 0.97; PROTHROMBIN TIME 12.1 seconds (11.9-14.5)
[2017-11-30 19:54] LABS: PARTIAL THROMBOPLASTIN TIME 26.8 seconds (23.8-35.5)
[2017-11-30 20:05] LABS: ALANINE AMINOTRANSFERASE 25 IU/L (0-55); ALBUMIN 3.1 g/dL (3.5-5.0); ALBUMIN/GLOBULIN RATIO 0.9 (0.8-2.0); ALKALINE PHOSPHATASE 71 IU/L (40-150); ANION GAP 13.1 mmol/L (8-16); BLOOD UREA NITROGEN 18 mg/dL (7-26); BUN/CREATININE RATIO 22 (6-25); CALCIUM 9.4 mg/dL (8.4-10.2); CARBON DIOXIDE 29 mmol/L (22-29); CHLORIDE 101 mmol/L (98-107); CREATINE KINASE 69 IU/L (29-168); CREATININE, SERUM 0.82 mg/dL (0.57-1.11); EST GLOMERULAR FILTRATION RATE > 60 ML/MIN (60-); GLUCOSE 130 mg/dL (74-118); POTASSIUM 4.1 mmol/L (3.5-5.1); SODIUM 139 mmol/L (136-145)
--- NOTE | 2017-11-30 20:09 | Diagnostic Imaging Report ---
EXAMINATION: CHEST SINGLE (PORTABLE) 11/30/2017 6:23 PM COMPARISON: 11/11/2017 INDICATION: Weakness, chest pain DISCUSSION: LINES: Left chest wall port catheter has its tip at the cavoatrial junction. The tip of an epidural spinal catheter is projected over the thoracic spine. LUNGS: The lungs are well inflated and clear. No pneumonia or pulmonary edema. PLEURA: No pleural effusion or pneumothorax. HEART AND MEDIASTINUM: The cardiomediastinal silhouette is unremarkable. A linear density of unknown etiology is projected over the mid chest. BONES AND SOFT TISSUES: Surgical clips are projected over the thoracic inlet.. The soft tissues are normal. IMPRESSION: 1. No pneumonia or pulmonary edema. 2. A linear density of uncertain etiology is projected over the mid chest. Recommend dedicated PA and lateral chest radiograph for further evaluation. Parag Kidd MD Signed by: Dr. Paarg Kidd M.D. on 11/30/2017 8:05 PM
[2017-11-30] MEDS ORDERED: DEXTROSE 50% SYRINGE 50 ML IV PRN (21:15)
[2017-11-30] MEDS ORDERED: SODIUM CHLORIDE FLUSH 10 ML SYR INJ PRN (21:15)
[2017-12-01] VITALS (7 sets, daily range): BP systolic 126–176; BP diastolic 58–82
[2017-12-01] MEDS ORDERED: METOCLOPRAMIDE HCL 10 MG/2ML VIAL IV SCH
[2017-12-01] MEDS ORDERED: LETROZOLE2.5 MG PO (00:11)
[2017-12-01] MEDS: NITROGLYCERIN 2% OINT 1 GM PKT TOP SCH ×4 (00:23→18:07)
[2017-12-01 04:15] LABS: CREATINE KINASE 63 IU/L (29-168)
[2017-12-01] MEDS: LIOTHYRONINE SODIUM 5 MCG TAB PO SCH (06:00)
[2017-12-01 06:52] LABS: BASOPHILS % 0.4 % (0.0-1.0); EOSINOPHILS # (AUTO) 0.1 (0.0-0.4); EOSINOPHILS % 1.6 % (0.0-6.0); HEMATOCRIT 35.4 % (34.2-44.1); LYMPHOCYTES # (AUTO) 1.2 (1.0-3.2); MEAN CORPUSCULAR HEMOGLOBIN 32.1 pg (28-32); MEAN CORPUSCULAR HGB CONC 33.9 g/dL (31-35); MEAN CORPUSCULAR VOLUME 94.7 fL (81-99); MONOCYTES # (AUTO) 0.6 (0.2-0.8); MONOCYTES % 11.5 % (4.4-11.3); NEUTROPHILS # (AUTO) 3.1 (2.1-6.9); NEUTROPHILS % 62.1 % (38.7-80.0); PLATELET COUNT 212 x10e3/uL (140-360); RED BLOOD COUNT 3.74 x10e6/uL (3.6-5.1)
[2017-12-01 07:06] LABS: ALANINE AMINOTRANSFERASE 19 IU/L (0-55); ALBUMIN/GLOBULIN RATIO 0.9 (0.8-2.0); ALKALINE PHOSPHATASE 77 IU/L (40-150); ANION GAP 11.8 mmol/L (8-16); BLOOD UREA NITROGEN 18 mg/dL (7-26); BUN/CREATININE RATIO 23 (6-25); CALCIUM 9.1 mg/dL (8.4-10.2); CARBON DIOXIDE 28 mmol/L (22-29); CHLORIDE 106 mmol/L (98-107); CHOL/HDL RATIO 2.8 (3.0-3.6); CHOLESTEROL 153 MD/DL (0-199); CREATININE, SERUM 0.79 mg/dL (0.57-1.11); EST GLOMERULAR FILTRATION RATE > 60 ML/MIN (60-); GLUCOSE 92 mg/dL (74-118); HDL CHOLESTEROL 54 MG/DL (40-60); LDL CHOLESTEROL 84 MG/DL (60-130); POTASSIUM 3.8 mmol/L (3.5-5.1); SODIUM 142 mmol/L (136-145); TRIGLYCERIDES 74 MG/DL (0-149)
[2017-12-01] MEDS ORDERED: COLCHICINE 0.6 MG TAB PO PRN (07:15)
[2017-12-01] MEDS ORDERED: TEMAZEPAM 15 MG CAP PO PRN (07:15)
[2017-12-01] MEDS ORDERED: DIPHENHYDRAMINE HCL 25 MG CAP PO PRN (07:15)
[2017-12-01] MEDS ORDERED: DIPHENOXYLATE/ATROPINE TAB PO PRN (07:15)
[2017-12-01] MEDS: INSULIN REGULAR, HUMAN 100 UNIT/1 ML 3ML VIAL SQ SCH ×4 (07:30→20:42)
[2017-12-01] MEDS ORDERED: NON-FORMULARY MEDICATION (Letrozole 2.5 MG) PO SCH (09:00)
[2017-12-01] MEDS: GABAPENTIN 300 MG CAP PO SCH ×3 (09:00→20:38)
[2017-12-01] MEDS ORDERED: METRONIDAZOLE 500MG/NS 100ML 100 ML IV SCH (09:00)
[2017-12-01] MEDS: ISOSORBIDE MONONITRATE 30 MG TAB CR PO SCH ×2 (09:14→20:38)
[2017-12-01] MEDS: CLOPIDOGREL BISULFATE 75 MG TAB PO SCH (09:14)
[2017-12-01] MEDS: FUROSEMIDE 40 MG TAB PO SCH (09:14)
[2017-12-01] MEDS: PANTOPRAZOLE SOD 40 MG TABEC PO SCH (09:15)
[2017-12-01] MEDS: Mirabegron (Myrbetriq) 50 MG TAB PO SCH (09:15)
[2017-12-01] MEDS: ALLOPURINOL 300 MG TAB PO SCH (09:15)
[2017-12-01] MEDS: SPIRONOLACTONE 25 MG TAB PO SCH (09:17)
[2017-12-01] MEDS: METOPROLOL TARTRATE 25 MG TAB PO SCH ×3 (09:17→20:38)
[2017-12-01] MEDS ORDERED: SODIUM CHLORIDE 0.9% 250ML 250 ML ONE (09:30)
[2017-12-01] MEDS: TIZANIDINE HCL 4 MG TAB PO SCH ×4 (09:30→20:39)
[2017-12-01] MEDS: PROMETHAZINE 12.5MG/ NACL 0.9% 12.5 MG/50 ML BAG IV PRN (09:44)
--- NOTE | 2017-12-01 11:31 | History and Physical ---
A 67-year-old female comes in with chest pain, shortness of breath and slight amount of disorientation. HISTORY OF PRESENT ILLNESS: This is . Nadia Renner with a history of breast cancer, history of recent radiation, was in her usual state of health until the patient had a stress test yesterday. During the stress test, the patient did have elevated heart rate. Was given IV metoprolol and also given 3 sublingual nitroglycerins for chest pain. She was also given 6 L of oxygen for hypoxia, and then was sent to home. She went into a restaurant having dinner, and the patient suddenly felt disorientation and chest pain, which was retrosternal. The patient came in and was admitted for chest pain. PAST MEDICAL HISTORY: History of gout, history of hyperlipidemia, history of coronary artery disease, history of neuropathy, history of diabetes with neuropathy, history of hypothyroidism, history of insomnia, and also history of morbid obesity. MEDICATIONS: She takes at home are: 1. Allopurinol 300 mg daily. 2. Clopidogrel 75 mg daily. 3. Colchicine 0.6 mg p.r.n. 4. Benadryl 25 mg as needed. 5. Lomotil 1 tablet q.6 h. as needed. 6. Lasix 40 mg daily. 7. Gabapentin 900 mg 3 tablets 3 times a day. 8. Glargine 30 units at nighttime. 9. Isosorbide mononitrate 60 mg p.o. daily in the morning. 10. Takes Letrozole 2.5 mg. 11. Levothyroxine 125 mcg a day. 12. Liothyronine 5 mcg. 13. Metoprolol 25 mg. 14. Myrbetriq 15 mg daily. 15. Nitroglycerin 0.4 mg as needed. 16. Promethazine 25 mg as needed. 17. Aldactone 25 mg daily. 18. Temazepam 30 mg. 19. Tizanidine 4 mg. 20. Trazodone 50 mg at nighttime. SURGICAL HISTORY: Mastectomy, history of radiation. Other surgeries include partial hysterectomy, knee surgeries. The patient did have breast and thyroid cancer, and also had a stent in 2013 for cardiac stent. History of urethral stent for nephrolithiasis. REVIEW OF SYSTEMS: Negative for nausea or vomiting. No constipation or rectal bleeding. Positive for chest pain, shortness of breath and also abdominal pain. The patient has left lower quadrant abdominal pain. PHYSICAL EXAMINATION GENERAL: The patient is alert and oriented times 3. VITALS: Temperature is 96.6, respirations 18, blood pressure 174/82, pulse ox 98% on O2 on room air. HEENT: Normocephalic and atraumatic. Pupils reactive to light and accommodation. CV: S1 and S2 normal. Regular rate and rhythm. ABDOMEN: Tender in the left lower quadrant. EXTREMITIES: No clubbing. No cyanosis. No edema. LABS: White count is 5.97, hemoglobin 12.4, hematocrit 36.6. Chemistry: Sodium 139, potassium 4.1, BUN 18, creatinine 0.8. Troponins have been negative the last 2 sets. Coags are normal. Chest x-ray shows no pneumonia. Linear density of uncertain etiology projected in the midchest. ASSESSMENT 1. Chest pain. 2. History of coronary disease. 3. History of diabetes. 4. History of hypertension. PLAN: Cardiac consult and keep the patient in-house for 3 sets of troponins. Further recommendations per clinical course. A consult to Dr. Torrez has been done as an inpatient. Job#: [id number] AIYANA
[2017-12-01 12:45] LABS: CREATINE KINASE MB 0.9 ng/mL (0-5.0)
[2017-12-01] MEDS: PREDNISONE 10 MG TAB PO SCH ×2 (16:45→18:00)
--- NOTE | 2017-12-01 17:29 | Consultation ---
DATE OF CONSULTATION: December 01, 2017 CARDIOLOGY CONSULTATION REQUESTING PHYSICIAN: Dr. Praveen Foss REASON FOR CONSULTATION: Chest pain. HISTORY OF PRESENT ILLNESS: This is a 67-year-old woman with history of coronary artery disease, status post prior RCA and diagonal stents in 2013, history of atrial fibrillation, history of breast cancer, status post left lumpectomy with radiation without chemotherapy, hyperlipidemia, and diabetes mellitus who presented with complaints of disorientation and chest pain. The patient was seen in the office yesterday for a pharmacologic nuclear stress test. She developed chest pain and shortness of breath during recovery for which she was treated with sublingual nitroglycerin and intravenous metoprolol. Approximately an hour and a half after her stress test, she went to eat dinner. She reports she was eating when she suddenly felt her vision go off. She said she felt very weak and was unable to clearly hear as if the voices around her were not comprehensible. Her family at bedside indicates that she turned pale. She was, therefore, brought to [facility] ER for further evaluation. During this time period, she developed chest pain and shortness of breath. She was admitted for further evaluation and management. REVIEW OF SYSTEMS: Negative except as per HPI. PAST MEDICAL HISTORY: 1. Coronary artery disease, status post RCA and diagonal stents in 2013. 2. History of atrial fibrillation. 3. Hyperlipidemia. 4. Diabetes mellitus. 5. Hypothyroidism. 6. History of breast cancer, status post left lumpectomy with radiation without chemotherapy. 7. Morbid obesity. PAST SURGICAL HISTORY: 1. Mastectomy. 2. Partial hysterectomy. 3. Knee surgery. ALLERGIES: PLEASE SEE EMR. MEDICATIONS: Please see medication list. SOCIAL HISTORY: No tobacco or alcohol. FAMILY HISTORY: Noncontributory. PHYSICAL EXAMINATION VITAL SIGNS: Temperature 98.7 degrees, pulse 59, respiratory rate 17, blood pressure 140/63, oxygen saturation 97% on room air. GENERAL: A well-nourished, well-developed woman in no acute distress. HEENT: Normocephalic, atraumatic. Pupils are equal. No scleral icterus. NECK: Supple. No thyromegaly or cervical lymphadenopathy. No carotid bruits. LUNGS: Clear to auscultation bilaterally. No wheezes or crackles. CARDIOVASCULAR: Normal rate, regular rhythm. No murmurs. Normal S1 and S2. ABDOMEN: Soft and nontender. EXTREMITIES: No edema. NEUROLOGIC: Nonfocal exam. LABORATORY DATA: WBC 5.05, hemoglobin 12, hematocrit 35.4, platelets 212,000. Sodium 142, potassium 3.8, chloride 106, CO2 of 28, BUN 18, creatinine 0.79, troponin 0.004. Nuclear stress test from the office was reviewed. She has a small area of mild ischemia in the inferior wall. IMPRESSION 1. Chest pain. 2. Altered mental status. 3. Status post coronary artery disease, status post prior right coronary artery and diagonal stent in 2013. 4. History of breast cancer, status post mastectomy with radiation without chemotherapy. 5. Hyperlipidemia. 6. Diabetes mellitus. 7. Hypothyroidism. 8. Morbid obesity. RECOMMENDATIONS: Continue monitoring the patient on telemetry. Resume home cardiac medications. The patient needs cardiac catheterization for further evaluation of her abnormal stress test and chest pain. However, she has an iodine allergy. We will premedicate and plan for procedure tomorrow afternoon. Thank you for this consult. We will continue to follow. Job#: [id number]
[2017-12-01] MEDS: CALCIUM CARBONATE 500 MG CHEWABLE TABS PO SCH (18:00)
[2017-12-01] MEDS: ASCORBIC ACID 500 MG TAB PO SCH (18:00)
[2017-12-01] MEDS ORDERED: CHOLECALCIFEROL 400 UNIT TAB PO SCH (18:00)
[2017-12-01] MEDS: INSULIN DETEMIR 100 UNIT/ML PEN SQ SCH (18:00)
[2017-12-01] MEDS: METRONIDAZOLE 500MG/NS 100ML 100 ML IV SCH (18:44)
[2017-12-01] MEDS: TRAZODONE HCL 50 MG TAB PO SCH (20:37)
[2017-12-01] MEDS: MAGNESIUM OXIDE 400 MG TAB PO SCH (20:38)
[2017-12-01] MEDS: FERROUS SULFATE 325 MG TAB PO SCH (20:38)
[2017-12-02] VITALS (12 sets, daily range): BP systolic 134–200; BP diastolic 69–93
[2017-12-02] MEDS: METRONIDAZOLE 500MG/NS 100ML 100 ML IV SCH ×4 (00:02→16:47)
[2017-12-02] MEDS: PROMETHAZINE 12.5MG/ NACL 0.9% 12.5 MG/50 ML BAG IV PRN ×4 (00:02→21:40)
[2017-12-02] MEDS: LEVOTHYROXINE SODIUM 75 MCG TAB PO SCH (05:11)
[2017-12-02] MEDS: NITROGLYCERIN 2% OINT 1 GM PKT TOP SCH ×5 (05:11→21:21)
[2017-12-02] MEDS: LIOTHYRONINE SODIUM 5 MCG TAB PO SCH (05:11)
[2017-12-02 06:08] LABS: BASOPHILS % 0.4 % (0.0-1.0); EOSINOPHILS # (AUTO) 0.1 (0.0-0.4); HEMATOCRIT 36.2 % (34.2-44.1); HEMOGLOBIN 12.1 g/dL (12.0-16.0); LYMPHOCYTES # (AUTO) 1.1 (1.0-3.2); LYMPHOCYTES % 22.1 % (18.0-39.1); MEAN CORPUSCULAR HEMOGLOBIN 31.3 pg (28-32); MEAN CORPUSCULAR HGB CONC 33.4 g/dL (31-35); MEAN CORPUSCULAR VOLUME 93.8 fL (81-99); MONOCYTES # (AUTO) 0.6 (0.2-0.8); MONOCYTES % 12.1 % (4.4-11.3); NEUTROPHILS # (AUTO) 3.2 (2.1-6.9); PLATELET COUNT 211 x10e3/uL (140-360); RED BLOOD COUNT 3.86 x10e6/uL (3.6-5.1); RED CELL DISTRIBUTION WIDTH 14.9 % (11.7-14.4)
[2017-12-02 06:31] LABS: ANION GAP 13.7 mmol/L (8-16); BLOOD UREA NITROGEN 15 mg/dL (7-26); BUN/CREATININE RATIO 19 (6-25); CALCIUM 9.3 mg/dL (8.4-10.2); CARBON DIOXIDE 28 mmol/L (22-29); CHLORIDE 104 mmol/L (98-107); EST GLOMERULAR FILTRATION RATE > 60 ML/MIN (60-); GLUCOSE 82 mg/dL (74-118); POTASSIUM 3.7 mmol/L (3.5-5.1); SODIUM 142 mmol/L (136-145)
[2017-12-02] MEDS ORDERED: MORPHINE SULFATE 4 MG/ML SYR IV PRN (07:00)
[2017-12-02] MEDS: INSULIN REGULAR, HUMAN 100 UNIT/1 ML 3ML VIAL SQ SCH ×4 (07:30→21:00)
[2017-12-02] MEDS: PANTOPRAZOLE SOD 40 MG TABEC PO SCH (07:30)
[2017-12-02] MEDS: MORPHINE SULFATE 2 MG/ML SYR IV PRN ×2 (08:29→21:41)
[2017-12-02] MEDS ORDERED: PREDNISONE 10 MG TAB PO ONE ×2 (08:30→14:30)
[2017-12-02] MEDS: CLOPIDOGREL BISULFATE 75 MG TAB PO SCH (08:38)
[2017-12-02] MEDS: SPIRONOLACTONE 25 MG TAB PO SCH (08:38)
[2017-12-02] MEDS: ISOSORBIDE MONONITRATE 30 MG TAB CR PO SCH ×2 (08:38→21:21)
[2017-12-02] MEDS: CHOLECALCIFEROL 1,000 UNIT TAB PO SCH (09:00)
[2017-12-02] MEDS: ALLOPURINOL 300 MG TAB PO SCH (09:00)
[2017-12-02] MEDS: GABAPENTIN 300 MG CAP PO SCH ×3 (09:00→21:21)
[2017-12-02] MEDS: CALCIUM CARBONATE 500 MG CHEWABLE TABS PO SCH (09:00)
[2017-12-02] MEDS: Letrozole 2.5 MG TAB PO SCH (09:00)
[2017-12-02] MEDS: METOPROLOL TARTRATE 25 MG TAB PO SCH ×3 (09:00→21:21)
[2017-12-02] MEDS: ASCORBIC ACID 500 MG TAB PO SCH (09:00)
[2017-12-02] MEDS: Mirabegron (Myrbetriq) 50 MG TAB PO SCH (09:00)
[2017-12-02] MEDS: TIZANIDINE HCL 4 MG TAB PO SCH ×3 (09:00→16:47)
[2017-12-02] MEDS ORDERED: HYDRALAZINE HCL 20 MG/ML VIAL IV PRN (13:45)
[2017-12-02] MEDS ORDERED: DIPHENHYDRAMINE HCL 25 MG CAP PO ONE (14:00)
[2017-12-02] MEDS ORDERED: ASPIRIN 81 MG CHEW TAB PO ONE (15:45)
[2017-12-02 16:24] LABS: CREATINE KINASE MB 0.9 ng/mL (0-5.0)
[2017-12-02] MEDS: INSULIN DETEMIR 100 UNIT/ML PEN SQ SCH (16:47)
[2017-12-02] MEDS ORDERED: MIDAZOLAM HCL 2 MG/2 ML VIAL ONE (17:03)
[2017-12-02] MEDS ORDERED: LIDOCAINE HCL 2% LOCAL 20 ML VIAL ONE (17:04)
[2017-12-02] MEDS ORDERED: IOPAMIDOL 370 MG/ML 200 ML INFUS..BTL INJ ONE (17:04)
[2017-12-02] MEDS ORDERED: SODIUM CHLORIDE 0.9% 1000ML 1,000 ML ONE (17:04)
[2017-12-02] MEDS ORDERED: FENTANYL CITRATE/PF 100MCG/2 ML INJ ONE (17:04)
[2017-12-02] MEDS ORDERED: HEPARIN SOD/SOD CHLORIDE 2,000 ML ONE (17:04)
[2017-12-02] MEDS ORDERED: VERAPAMIL HCL 2.5 MG/ML 2 ML VIAL ONE (17:39)
[2017-12-02] MEDS ORDERED: ONDANSETRON HCL INJ 2 MG/ML VIAL ONE (18:24)
--- NOTE | 2017-12-02 19:05 | Progress Note ---
DATE: December 02, 2017 CARDIOLOGY PROGRESS NOTE SUBJECTIVE: No new complaints. OBJECTIVE GENERAL: In no acute distress. VITAL SIGNS: Reviewed and stable. CHEST: Clear to auscultation. CARDIOVASCULAR: Regular rate and rhythm. S1 and S2. ABDOMEN: Soft. EXTREMITIES: No edema. LABORATORY DATA: Reviewed. CARDIOVASCULAR MEDICATIONS: Reviewed. ASSESSMENT: 1. Atypical chest pain. 2. Patent right coronary artery and diagonal stents. 3. History of breast cancer, status post right mastectomy and chemoradiation. 4. Diabetes mellitus, hypertension, dyslipidemia, hypothyroidism and morbid obesity. 5. Multiple allergies. PLAN: 1. Keep on telemetry. 2. On coronary angiogram today, patent stents. No need for additional interventions at this point in time. Continue medical management. Job#: [id number]
[2017-12-02] MEDS: FERROUS SULFATE 325 MG TAB PO SCH (21:21)
[2017-12-02] MEDS: TRAZODONE HCL 50 MG TAB PO SCH (21:21)
[2017-12-02] MEDS: MAGNESIUM OXIDE 400 MG TAB PO SCH (21:21)
[2017-12-03] VITALS (8 sets, daily range): BP systolic 109–184; BP diastolic 62–84
[2017-12-03] MEDS: TIZANIDINE HCL 4 MG TAB PO SCH ×5 (00:14→20:42)
[2017-12-03] MEDS: METRONIDAZOLE 500MG/NS 100ML 100 ML IV SCH ×4 (00:28→18:00)
--- NOTE | 2017-12-03 03:12 | Operative Report ---
DATE OF PROCEDURE: PROCEDURE INDICATION: Chest pain concerning for unstable angina in patient with history of CAD with prior stents. PROCEDURES PERFORMED 1. Left heart catheterization. 2. Selective coronary angiography. 3. Right radial TR band hemostasis. PROCEDURE COMPLICATIONS: None. ESTIMATED BLOOD LOSS: Less than 5 mL. PROCEDURE SUMMARY: After consent was obtained, patient was prepped and draped in a sterile fashion and the right radial site was locally infiltrated with 2% lidocaine. The patient describes a prior history of iodine allergy. She was premedicated starting on the proceeding phase angiogram. TIG catheter was advanced over a J-wire into the proximal ascending aorta and used for selective engagement of the left main and then, the right coronary artery, as well as to cross the aortic valve for hemodynamic measurements. TR band hemostasis was applied at the end of the procedure. The following findings were observed: 1. LV pressure was 147/5 with end-diastolic pressure of 14. 2. Aortic pressure was 174/60. 3. Left main is large in caliber with luminal irregularities giving an LAD and a circumflex both large in caliber. 4. The LAD is large in caliber, gives a high-takeoff 1st diagonal that has a patent proximal stent in its diagonal. Additional septal farrowing manager and a 2nd diagonal arise, as well as multiple small caliber septal perforators from this LAD that, otherwise, has luminal irregularities. 5. The circumflex has luminal irregularities, gives a high-takeoff 1st obtuse marginal of medium caliber and 3 additional obtuse marginals. 6. The right coronary artery is dominant with a patent stent in the mid to the distal portion and otherwise, luminal irregularities of the rest of the RCA and its branches. It gives a terminal RPDA and terminal RPLV. CONCLUSION: There is mild residual coronary artery disease with patent diagonal and patent right coronary artery stents. RECOMMENDATIONS: Evaluate for alternative etiologies for chest pain. Wean TR band. Medical management for CAD. Keep on telemetry. Job#: [id number] CQ
[2017-12-03] MEDS: MORPHINE SULFATE 2 MG/ML SYR IV PRN (04:10)
[2017-12-03] MEDS: PROMETHAZINE 12.5MG/ NACL 0.9% 12.5 MG/50 ML BAG IV PRN ×3 (04:10→16:47)
[2017-12-03] MEDS: LEVOTHYROXINE SODIUM 75 MCG TAB PO SCH (05:44)
[2017-12-03] MEDS: LIOTHYRONINE SODIUM 5 MCG TAB PO SCH (05:44)
[2017-12-03] MEDS: NITROGLYCERIN 2% OINT 1 GM PKT TOP SCH ×4 (05:44→16:47)
[2017-12-03] MEDS ORDERED: CLONIDINE HCL 0.1 MG TAB PO PRN (07:15)
[2017-12-03] MEDS: PANTOPRAZOLE SOD 40 MG TABEC PO SCH (07:30)
[2017-12-03] MEDS: SPIRONOLACTONE 25 MG TAB PO SCH (08:05)
[2017-12-03] MEDS: ISOSORBIDE MONONITRATE 30 MG TAB CR PO SCH ×2 (08:05→20:40)
[2017-12-03] MEDS: GABAPENTIN 300 MG CAP PO SCH ×3 (08:05→20:41)
[2017-12-03] MEDS: METOPROLOL TARTRATE 25 MG TAB PO SCH ×3 (08:05→20:41)
[2017-12-03] MEDS: CLOPIDOGREL BISULFATE 75 MG TAB PO SCH (08:05)
[2017-12-03] MEDS: ALLOPURINOL 300 MG TAB PO SCH (08:05)
[2017-12-03] MEDS: ASCORBIC ACID 500 MG TAB PO SCH (08:05)
[2017-12-03] MEDS: FUROSEMIDE 40 MG TAB PO SCH (08:05)
[2017-12-03] MEDS: Letrozole 2.5 MG TAB PO SCH (08:10)
[2017-12-03] MEDS: INSULIN REGULAR, HUMAN 100 UNIT/1 ML 3ML VIAL SQ SCH ×4 (08:33→20:42)
[2017-12-03] MEDS: CHOLECALCIFEROL 1,000 UNIT TAB PO SCH (10:43)
[2017-12-03] MEDS: CALCIUM CARBONATE 500 MG CHEWABLE TABS PO SCH (10:43)
[2017-12-03] MEDS: AMLODIPINE BESYLATE 5 MG TAB PO SCH (12:00)
[2017-12-03] MEDS: Mirabegron (Myrbetriq) 50 MG TAB PO SCH (12:00)
--- NOTE | 2017-12-03 13:19 | Progress Note ---
DATE: December 03, 2017 CARDIOLOGY PROGRESS NOTE SUBJECTIVE: The patient denies chest pain or shortness of breath. She underwent cardiac catheterization by Dr. Gyu yesterday which demonstrated patent stents with luminal irregularities throughout the coronary vasculature. OBJECTIVE VITAL SIGNS: Temperature 97.9 degrees, pulse 65, respiratory 17, blood pressure 184/64. Oxygen saturation 100% on 2 liters nasal cannula. GENERAL: Morbidly obese woman, no acute distress. Awake and alert. LUNGS: Clear to auscultation bilaterally. No wheezes or crackles. CARDIOVASCULAR: Normal rate, regular rhythm. No murmur. Normal S1, S2. ABDOMEN: Soft, nontender. EXTREMITIES: No edema. Palpable right radial pulse. CARDIAC MEDICATIONS 1. Isosorbide mononitrate 60 mg p.o. q. a.m. 2. Furosemide 40 mg p.o. q. 48 hours. 3. Spironolactone 25 mg p.o. daily. 4. Metoprolol tartrate 25 mg p.o. t.i.d. 5. Plavix 75 mg p.o. daily. 6. Levothyroxine 150 mg p.o. daily. 7. Liothyronine 25 mcg p.o. daily. 8. Isosorbide mononitrate 30 mg p.o. nightly. LABS: None today. TELEMETRY: Normal sinus rhythm. IMPRESSION 1. Atypical chest pain. 2. Coronary artery disease status post diagonal and RCA stents in 2013 with luminal irregularities. 3. History of atrial fibrillation. 4. Hyperlipidemia. 5. Diabetes mellitus. 6. Hypothyroidism. 7. History of breast cancer status post mastectomy of the left with radiation but no chemotherapy. 8. Morbid obesity. 9. Altered mental status. RECOMMENDATIONS: Continue monitoring patient on telemetry. No arrhythmias have been identified. There is no evidence of significant stenosis on her coronary angiogram. Continue medical management. Evaluate for alternate etiologies of the patient's altered mental status. Patient's blood pressure is very labile. We will add amlodipine. Thank you for this consult. We will continue to follow. Job#: [id number] KESHIA
[2017-12-03] MEDS: INSULIN DETEMIR 100 UNIT/ML PEN SQ SCH (18:00)
[2017-12-03] MEDS: FERROUS SULFATE 325 MG TAB PO SCH (20:40)
[2017-12-03] MEDS: TRAZODONE HCL 50 MG TAB PO SCH (20:40)
[2017-12-03] MEDS: MAGNESIUM OXIDE 400 MG TAB PO SCH (20:41)
[2017-12-04] VITALS: BP 124/59
[2017-12-04] MEDS: NITROGLYCERIN 2% OINT 1 GM PKT TOP SCH ×2 (00:03→05:43)
[2017-12-04] MEDS: METRONIDAZOLE 500MG/NS 100ML 100 ML IV SCH ×2 (00:03→05:43)
[2017-12-04] MEDS: PROMETHAZINE 12.5MG/ NACL 0.9% 12.5 MG/50 ML BAG IV PRN (01:26)
[2017-12-04 05:30] VITALS: BP 144/72
[2017-12-04] MEDS: LIOTHYRONINE SODIUM 5 MCG TAB PO SCH (05:43)
[2017-12-04] MEDS: LEVOTHYROXINE SODIUM 75 MCG TAB PO SCH (05:43)
[2017-12-04] MEDS: INSULIN REGULAR, HUMAN 100 UNIT/1 ML 3ML VIAL SQ SCH (07:30)
[2017-12-04 08:26] VITALS: BP 142/74
[2017-12-04] MEDS: METOPROLOL TARTRATE 25 MG TAB PO SCH (09:00)
[2017-12-04] MEDS: TIZANIDINE HCL 4 MG TAB PO SCH (09:00)
[2017-12-04] MEDS: Mirabegron (Myrbetriq) 50 MG TAB PO SCH (09:00)
[2017-12-04] MEDS: Letrozole 2.5 MG TAB PO SCH (09:00)
[2017-12-04] MEDS ORDERED: HEPARIN 500 UNITS/5ML MDV INJ SCH (09:15)
[2017-12-04] MEDS: SPIRONOLACTONE 25 MG TAB PO SCH (09:33)
[2017-12-04] MEDS: PANTOPRAZOLE SOD 40 MG TABEC PO SCH (09:33)
[2017-12-04] MEDS: AMLODIPINE BESYLATE 5 MG TAB PO SCH (09:34)
[2017-12-04] MEDS: GABAPENTIN 300 MG CAP PO SCH (09:34)
[2017-12-04] MEDS: ASCORBIC ACID 500 MG TAB PO SCH (09:34)
[2017-12-04] MEDS: CHOLECALCIFEROL 1,000 UNIT TAB PO SCH (09:34)
[2017-12-04] MEDS: ISOSORBIDE MONONITRATE 30 MG TAB CR PO SCH (09:34)
[2017-12-04] MEDS: CLOPIDOGREL BISULFATE 75 MG TAB PO SCH (09:34)
[2017-12-04] MEDS: ALLOPURINOL 300 MG TAB PO SCH (09:35)
[2017-12-04 11:55] VITALS: BP 159/77
[2017-12-04] MEDS ORDERED: PROMETHAZINE HC25 M1 PO (12:16)
[2017-12-04] MEDS ORDERED: LOSARTAN POTASS25 MG PO (12:16)
[2017-12-04] MEDS ORDERED: FLAGYL250 MG PO (12:17)
--- NOTE | 2017-12-04 14:06 | Progress Note ---
DATE: December 04, 2017 CARDIOLOGY PROGRESS NOTE SUBJECTIVE: Patient complains of crushing chest pain still. She denies any shortness of breath. OBJECTIVE VITAL SIGNS: Temperature 97.4 degrees, pulse 63, respiratory rate 16, blood pressure 159/77. Oxygen saturation 96% on room air. GENERAL: Morbidly obese woman in no acute distress. Awake and alert. LUNGS: Clear to auscultation bilaterally. No wheezes or crackles. CARDIOVASCULAR: Normal rate, regular rhythm. No murmur. Normal S1, S2. ABDOMEN: Soft, nontender. EXTREMITIES: No edema. CARDIAC MEDICATIONS 1. Amlodipine 2.5 mg p.o. daily. 2. Isosorbide mononitrate 60 mg p.o. q. a.m. 3. Plavix 75 mg p.o. daily. 4. Spironolactone 25 mg p.o. daily. 5. Levothyroxine 150 mcg p.o. daily. 6. Liothyronine 25 mcg p.o. daily. 7. Isosorbide mononitrate 30 mg p.o. nightly. LABS: None today. TELEMETRY: Normal sinus rhythm. IMPRESSION 1. Chest pain. 2. Coronary artery disease status post diagonal and right coronary artery stents in 2013 with patent stents and mild luminal irregularities on cardiac catheterization this admission. 3. History of atrial fibrillation. 4. Hyperlipidemia. 5. Diabetes mellitus. 6. Hypothyroidism. 7. History of breast cancer status post left mastectomy with radiation but no chemotherapy. 8. Morbid obesity. 9. Altered mental status. RECOMMENDATIONS: Continue monitoring the patient on telemetry. No arrhythmias have been identified. No significant stenosis was seen on coronary angiography. Continue medical management. Titrate up antianginal therapy as blood pressure tolerates. Thank you for this consult. We will continue to follow. Job#: [id number]
== END 2017-12-04 12:36 | disposition home or self-care (01) ==
LOC: ER 18:40 → ERHOLD 22:06 → IMCU 23:34
PROVIDERS: ADMIT Family Medicine; ATTEND Family Medicine
DX: R07.89 Other chest pain (principal); I25.10 Atherosclerotic heart disease of native coronary artery without angina pectoris; E11.9 Type 2 diabetes mellitus without complications; Z95.5 Presence of coronary angioplasty implant and graft; Z85.3 Personal history of malignant neoplasm of breast; E78.5 Hyperlipidemia, unspecified; E03.9 Hypothyroidism, unspecified; E66.01 Morbid (severe) obesity due to excess calories; R41.82 Altered mental status, unspecified; I48.91 Unspecified atrial fibrillation; K57.92 Diverticulitis of intestine, part unspecified, without perforation or abscess without bleeding; E11.65 Type 2 diabetes mellitus with hyperglycemia
CPT/HCPCS: 36415 ×5; 71045; 77002; 80048; 80053 ×2; 80061; 82550 ×3; 82553 ×3; 82948 ×4; 83880; 84484 ×3; 85025 ×3; 85610; 85730; 93005 ×2; 93458; 99284; C1887; G0378 ×5; J0360; J2001; J2250; J2270 ×2; J2405; J2550 ×4; J7030; J7050; Q9967; 36140

== ENCOUNTER 2017-12-21 10:56 | Emergency (ER) | payer MEDICARE ==
[~2017-12-21] VITALS: Ht 165.1 cm; Wt 121.6 kg
[~2017-12-21 10:56] MED LIST changes: +FLAGYL250 MG PO; +LETROZOLE2.5 MG PO; +LOSARTAN POTASS25 MG PO; -TEMAZEPAM30 MG; +TEMAZEPAM30 MG PO
--- OUTSIDE RECORDS SUMMARY | 2017-12-21 10:59 | XMS REPORT | Continuity of Care Document ---
Author Author [facility] Organization [facility] Address [address] [place] [address] Phone Unavailable Care Team Providers Care Radar Scientist Name Role Phone KRISTY RODRIGUEZ MD PCP Insurance Providers Guarantor Nadia Renner Address [address] [place] [address] Email [email or web address] Payer [employer] Medicare Complete Policy Number [id number] Subscriber's Name Nadia Renner Relationship 18 Self / Same As Patient Group Number [id number] Group Name RETIRED Effective Date 17 Advance Directives Directive Response Recorded Date/Time Does the patient have an advance directive? No 12/01/17 12:05am If yes, is advance directive on file with [facility]? No 12/01/17 12:05am If not on file with [facility] will patient provide a copy? Yes 12/01/17 12:05am Do you have a Directive to Physician? No 11/30/17 10:00pm Do you have a Medical Power of Senior Qualitative Researcher? No 11/30/17 10:00pm Do you have an out of hospital Do Not Resuscitate Order? No 11/30/17 10:00pm Do you have any special needs we should be aware of? No 11/30/17 10:00pm Do you have a support person here with you today? Yes 11/30/17 10:00pm Did patient receive Notice of Privacy Practices? Yes 11/30/17 10:00pm Did patient receive patient rights and responsibilities? Yes 11/30/17 10:00pm Problems Medical Problem Onset Date Status Chest pain Unknown Medications Current Home Medications Medication Dose Units Route Directions Days Qty Instructions Start Date Allopurinol 300 Mg Tablet 300 Mg Oral Daily 30 Tab Clopidogrel Bisulfate (Plavix) 75 Mg Tablet 75 Mg Oral Daily 30 Tab Colchicine (Colcrys) 0.6 Mg Tablet 0.6 Mg Oral As Needed 30 Tab Diphenhydramine Hcl (Benadryl) 25 Mg Capsule 50 Mg Oral Every 4 Hours as needed for Allergy 30 Days 100 Diphenoxylate Hcl/Atropine (Lomotil Tablet) 1 Each Tablet 1 Tab Oral As Needed Furosemide 40 Mg Tablet 40 Mg Oral Daily 30 Tab Gabapentin 300 Mg Capsule 900 Mg Oral Three Times A Day 60 Cap Insulin Glargine (Lantus 3ML Pen) 100 Units/1 Ml Inj 30 Units Subcutaneously Bedtime Isosorbide Mononitrate (Isosorbide Mononitrate Er) 30 Mg Tab.er.24h 60 Mg Oral Daily 30 Tab Isosorbide Mononitrate (Isosorbide Mononitrate Er) 30 Mg Tab.er.24h 30 Mg Oral Bedtime 30 Tab Lavender Oil 30 Ml Oil 30 Ml Oral Daily Letrozole 2.5 Mg Tablet 2.5 Mg Oral Daily Levothyroxine Sodium (Synthroid) 125 Mcg Tab 125 Mcg Oral Today At 6:30AM 30 Tab Liothyronine Sodium 5 Mcg Tablet 25 Mg Oral Daily Losartan Potassium 25 Mg Tablet 25 Mg Oral Daily Metoprolol Tartrate 25 Mg Tablet 25 Mg Oral Three Times A Day Metronidazole (Flagyl) 250 Mg Tablet 500 Mg Oral Three Times A Day Mirabegron (Myrbetriq) 50 Mg Tab.er.24h 50 Mg Oral Daily Nitroglycerin 0.4 Mg Tab.subl 0.4 Mg Sublingual Every 5 Minutes as needed for Chest Pain Promethazine Hcl 25 Mg Tablet 25 Mg Oral Every 4 Hours as needed for Nausea Promethazine Hcl 25 Mg Tablet 25 Mg Oral Every 6 Hours as needed for Nausea Spironolactone 25 Mg Tablet 25 Mg Oral Daily 60 Tab Tea Tree Oil 30 Ml Oil 30 Mg Oral Daily Temazepam 30 Mg Capsule Bedtime Tizanidine Hcl 4 Mg Tablet 4 Mg Oral Bedtime Trazodone Hcl 50 Mg Tablet 100 Mg Oral Daily 30 Tab Past Home Medications Medication Directions Ordered Status Amlodipine Besylate 5 Mg Tablet, 2.5 Mg Oral Twice A Day Discontinued Cranberry 400 Mg Capsule, 1 Cap Oral Daily Discontinued Hydrochlorothiazide 25 Mg Tablet, 25 Mg Daily Discontinued Insulin Glargine (Lantus 3ML Pen) 100 Units/1 Ml Inj, Subcutaneously Before Meals Discontinued Insulin Lispro (Humalog) 100 Unit/1 Ml Insuln.pen, Subcutaneously Before Meals Discontinued Isosorbide Mononitrate 20 Mg Tablet, 60 Mg Oral Twice A Day Discontinued Nitrofurantoin Macrocrystal (Nitrofurantoin) 100 Mg Capsule, 100 Mg Oral Twice A Day Discontinued Omeprazole 40 Mg Capsule.dr, 40 Mg Oral Daily Discontinued Temazepam 15 Mg Capsule, 15 Mg Oral Bedtime Discontinued Social History Social History Problem Response Recorded Date/Time Onset Date Status Hx Psychiatric Problems No 12/01/2017 12:05am Not Applicable Not Applicable Hx Eating Disorder No 12/01/2017 12:05am Not Applicable Not Applicable Hx Substance Use Disorder No 12/01/2017 12:05am Not Applicable Not Applicable Hx Depression No 12/01/2017 12:05am Not Applicable Not Applicable Hx Alcohol Use No 12/01/2017 12:05am Not Applicable Not Applicable Hx Substance Use Treatment No 12/01/2017 12:05am Not Applicable Not Applicable Hx Physical Abuse No 12/01/2017 12:05am Not Applicable Not Applicable Smoking Status Start Date Stop Date Never Smoker Hospital Discharge Instructions No hospital discharge instruction information available. Plan of Care Discharge Date 12/04/17 12:36pm Disposition HOME, SELF-CARE Instructions/Education Provided Chest Pain - Noncardiac Prescriptions See Medication Section Referrals ART CARVALHO MD (Cardiology) Order Date: 1-2 Weeks Entered Date: 12/04/2017 12:18pm Address: [facility] [place] [address] [place] [address] KRISTY RODRIGUEZ MD (Family Practice) Order Date: 1-2 Weeks Entered Date: 12/04/2017 12:18pm Address: [address] [place] [phone] Functional Status Query Response Date Recorded Assistive Devices None December 01, 2017 12:27am Ambulation Ability Independent December 01, 2017 12:27am Toileting Ability Independent December 01, 2017 12:27am Allergies, Adverse Reactions, Alerts Allergen Type Severity Reaction Status Last Updated Iodinated Contrast- Oral and IV Dye Allergy Intermediate ITCHING Active NSAIDS (Non-Steroidal Anti-Inflamma Allergy Unknown GASTRITIS, WHEEZING Active 11/30/17 Penicillin Allergy Unknown ITCH Active 11/11/17 Lisinopril Allergy Unknown TACHY Active 11/11/17 Hydrocodone Allergy Intermediate ITCHING Active 08/25/17 Oxycodone Allergy Intermediate VOMITING Active 08/25/17 Aspirin Allergy Intermediate GASTRITIS, WHEEZING, DIAPHRAGMATIC SPASMS, THROAT CLOSES UP Active 08/25/17 Acetaminophen Allergy Intermediate ITCHING Active 08/25/17 Baclofen Allergy Intermediate MUSCLE TREMORS AND JERKING Active 08/25/17 Gemfibrozil Allergy Intermediate MUSCLE PAIN [...] 08/25/17 Amoxicillin Allergy Intermediate ITCHING Active 08/25/17 Salmeterol Allergy Unknown NEUROLOGICAL PROB Active 11/30/17 Tramadol Allergy Intermediate RASH, ITCHING, HEADACHES, IRREGULAR HEART BEAT Active 08/25/17 Amitriptyline Allergy Intermediate MUSCLE TREMORS Active 08/25/17 Propantheline Allergy Unknown Active 11/30/17 Metoclopramide Allergy Intermediate MUSCLE TREMORS Active 08/25/17 Fluticasone Allergy Unknown NEUROLOGICAL PROB Active 11/30/17 Atorvastatin Allergy Intermediate MUSCLE PAIN WEAKNESS AND DARK URINE Active 08/25/17 Ezetimibe Allergy Intermediate MUSCLE WEAKNESS, PAIN, WHEEZING Active 05/04 Pregabalin Allergy Intermediate MUSCLE TREMORS AND JERKING Active 08/25/17 MYCINS Allergy Unknown ITCH Active 11/11/17 Immunizations No immunization information available. Vital Signs Acute Vital Signs Vital Response Date/Time Temperature (Fahrenheit) 97.4 degrees F (97.6 - 99.5) 12/04/2017 11:55am Pulse Pulse Rate (adult) 63 bpm (60 - 90) 12/04/2017 11:55am Respiratory Rate 16 bpm (12 - 24) 12/04/2017 11:55am Blood Pressure 159/77 mm Hg 12/04/2017 11:55am Height 5 ft 5 in 11/30/2017 6:00pm Weight 268.50 lb 12/03/2017 12:00am Body Mass Index 44.7 kg/m^2 12/03/2017 12:00am Results Laboratory Results Test Name Result Units Flags Reference Collection Date/Time Result Date/ Time Comments Urine Fine Granular Casts 1-5 H 0 10/06/2017 12:55pm 10/06/2017 1: 29pm Lipase 14 U/L 8-78 10/06/2017 12:35pm 10/06/2017 1:21pm Urine Color YELLOW YELLOW 10/14/2017 7:15pm 10/14/2017 7:28pm Urine Clarity CLEAR CLEAR 10/14/2017 7:15pm 10/14/2017 7:28pm Urine Specific [place] 1.010 1.010-1.025 10/14/2017 7:15pm 2017 7:28pm Urine [...] Antigen NEGATIVE NEGATIVE 10/14/2017 4:40pm 10/14/2017 5:42pm Lactic Acid Level 5.1 MG/DL 4.5-19.8 10/14/2017 5:01pm 10/14/2017 5: 42pm Vitamin B12 Level 422 pg/mL 213-816 10/15/2017 7:50am 10/15/2017 8: 57am Thyroid Stimulating Hormone (TSH) 0.151 uIU/mL L 0.350-4.940 10/14/2017 5 :01pm 10/14/2017 6:06pm Vitamin B6 Level 8.8 ug/L 2.0-32.8 10/15/2017 7:50am 10/20/2017 5:46am This test was developed and its performance characteristics determined by [facility]. It has not been cleared or approved by the Food and Drug Administration. Performed at: [address] [id number] Hairspring Adjuster: Sunday Alejandro MD, Phone: [phone] C-Reactive Protein 1.5 mg/L 0.0-4.9 10/15/2017 7:50am 10/16/2017 12: 55pm Performed at: [address] [id number] Hairspring Adjuster: Italo Joyner MD, Phone: [phone] Group A Streptococcus Screen NEGATIVE NEGATIVE 10/14/2017 7:35pm 7:49pm Erythrocyte Sedimentation Rate 48 mm/hr H 0-20 10/29/2017 9:20pm 2017 11:17pm Magnesium Level 1.9 MG/DL 1.3-2.1 10/29/2017 9:20pm 10/29/2017 10:47pm White Blood Count 5.11 x10e3/uL 4.8-10.8 12/02/2017 5:47am 12/02/2017 6 :16am Red Blood Count 3.86 x10e6/uL 3.6-5.1 12/02/2017 5:47am 12/02/2017 6: 16am Hemoglobin 12.1 g/dL 12.0-16.0 12/02/2017 5:47am 12/02/2017 6:16am Hematocrit 36.2 % 34.2-44.1 12/02/2017 5:47am 12/02/2017 6:16am Mean Corpuscular Volume 93.8 fL 81-99 12/02/2017 5:47am 12/02/2017 6: 16am Mean Corpuscular Hemoglobin 31.3 pg 28-32 12/02/2017 5:47am 12/02/2017 6:16am Mean Corpuscular Hemoglobin Concent 33.4 g/dL 31-35 12/02/2017 5:47am 12/02/2017 6:16am Red Cell Distribution Width 14.9 % H 11.7-14.4 12/02/2017 5:47am 2017 6:16am Platelet Count 211 x10e3/uL 140-360 12/02/2017 5:47am 12/02/2017 6: 16am Neutrophils (%) (Auto) 63.0 % 38.7-80.0 12/02/2017 5:47am 12/02/2017 6: 16am Lymphocytes (%) (Auto) 22.1 % 18.0-39.1 12/02/2017 5:47am 12/02/2017 6: 16am Monocytes (%) (Auto) 12.1 % H 4.4-11.3 12/02/2017 5:47am 12/02/2017 6: 16am Eosinophils (%) (Auto) 2.0 % 0.0-6.0 12/02/2017 5:47am 12/02/2017 6: 16am Basophils (%) (Auto) 0.4 % 0.0-1.0 12/02/2017 5:47am 12/02/2017 6:16am IM GRANULOCYTES % 0.4 % 0.0-1.0 12/02/2017 5:47am 12/02/2017 6:16am Neutrophils # (Auto) 3.2 2.1-6.9 12/02/2017 5:47am 12/02/2017 6:16am Lymphocytes # (Auto) 1.1 1.0-3.2 12/02/2017 5:47am 12/02/2017 6:16am Monocytes # (Auto) 0.6 0.2-0.8 12/02/2017 5:47am 12/02/2017 6:16am Eosinophils # (Auto) 0.1 0.0-0.4 12/02/2017 5:47am 12/02/2017 6:16am Basophils # (Auto) 0.0 0.0-0.1 12/02/2017 5:47am 12/02/2017 6:16am Absolute Immature Granulocyte (auto 0.02 x10e3/uL 0-0.1 12/02/2017 5: 47am 12/02/2017 6:16am Prothrombin Time 12.1 seconds 11.9-14.5 11/30/2017 7:15pm 11/30/2017 7: 55pm Prothromb Time International Ratio 0.97 11/30/2017 7:15pm 2017 7:55pm Oral Anticoagulant Therapy INR Values: 1. Low Intensity Therapy 1.5 - 2.0 2. Moderate Intensity Therapy 2.0 - 3.0 3. High Intensity Therapy(1) 2.5 - 3.5 4. High Intensity Therapy(2) 3.0 - 4.0 5. Panic Value INR > 5.0 Activated Partial Thromboplast Time 26.8 seconds 23.8-35.5 11/30/2017 7: 15pm 11/30/2017 7:55pm Sodium Level 142 mmol/L 136-145 12/02/2017 5:47am 12/02/2017 6:36am Potassium Level 3.7 mmol/L 3.5-5.1 12/02/2017 5:47am 12/02/2017 6:36am Chloride Level 104 mmol/L 98-107 12/02/2017 5:47am 12/02/2017 6:36am Carbon Dioxide Level 28 mmol/L 22-29 12/02/2017 5:47am 12/02/2017 6: 36am Anion Gap 13.7 mmol/L 8-16 12/02/2017 5:47am 12/02/2017 6:36am Blood Urea Nitrogen 15 mg/dL 7-12/02/2017 5:47am 12/02/2017 6:36am Creatinine 0.80 mg/dL 0.57-1.11 12/02/2017 5:47am 12/02/2017 6:36am BUN/Creatinine Ratio 19 6-12/02/2017 5:47am 12/02/2017 6:36am Estimat Glomerular Filtration Rate > 60 ML/MIN 60- 12/02/2017 5:47am 6:36am Ranges were taken from the National Kidney Disease Education Program and the National Kid[employer] Foundation literature. Reference ranges: 60 or greater: Normal 16-59 (for 3 consecutive months): Chronic kidney disease 15 or less: Kidney failure Glucose Level 82 mg/dL 74-118 12/02/2017 5:47am 12/02/2017 6:36am Calcium Level 9.3 mg/dL 8.4-10.2 12/02/2017 5:47am 12/02/2017 6:36am Bedside Glucose 148 mg/dL H 70-120 12/04/2017 11:05am 12/04/2017 11: 44am Meter ID: [id number] Total Bilirubin 1.1 mg/dL 0.2-1.2 12/01/2017 6:36am 12/01/2017 7:09am Aspartate Amino Transf (AST/SGOT) 19 IU/L 5-34 12/01/2017 6:36am 2017 7:09am Alanine Aminotransferase (ALT/SGPT) 19 IU/L 0-55 12/01/2017 6:36am 7:09am Total Protein 6.4 g/dL L 6.5-8.1 12/01/2017 6:36am 12/01/2017 7:09am Albumin 3.0 g/dL L 3.5-5.0 12/01/2017 6:36am 12/01/2017 7:09am Globulin 3.4 g/dL 2.3-3.5 12/01/2017 6:36am 12/01/2017 7:09am Albumin/Globulin Ratio 0.9 0.8-2.0 12/01/2017 6:36am 12/01/2017 7: 09am Alkaline Phosphatase 77 IU/L 40-150 12/01/2017 6:36am 12/01/2017 7: 09am Triglycerides Level 74 MG/DL 0-149 12/01/2017 6:36am 12/01/2017 7:09am Cholesterol Level 153 MD/DL 0-199 12/01/2017 6:36am 12/01/2017 7:09am Less than 200 mg/dL Low Risk 201 - 239 mg/dL Borderline Risk 240 mg/dl and greater High Risk LDL Cholesterol 84 MG/DL 60-130 12/01/2017 6:36am 12/01/2017 7:09am HDL Cholesterol 54 MG/DL 40-60 12/01/2017 6:36am 12/01/2017 7:09am Cholesterol/HDL Ratio 2.8 L 3.0-3.6 12/01/2017 6:36am 12/01/2017 7: 09am B-Type Natriuretic Peptide 85.2 pg/mL 0-100 11/30/2017 7:15pm 2017 8:10pm Creatine Kinase 55 IU/L 29-168 12/02/2017 3:54pm 12/02/2017 4:18pm Creatine Kinase MB 0.90 ng/mL 0-5.0 12/02/2017 3:54pm 12/02/2017 4: 35pm Troponin I 0.001 ng/mL 0-0.300 12/02/2017 3:54pm 12/02/2017 4:35pm Procedures Procedure Status Date Provider(s) CYSTOSCOPY & URETER CATHETER Completed 08/26/17 DHARA CHAVIRA MD EGD BIOPSY SINGLE/MULTIPLE Completed 11/17/17 FADUMO SKINNER MD DILATE ESOPHAGUS 1/MULT PASS Completed 11/17/17 FADUMO SKINNER MD Cystoscopy with retrograde pyelography Completed 10/02/17 DHARA CHAVIRA MD X-ray of chest, two views Active 08/24/[address] of abdomen and pelvis without contrast Active 10/06/17 NIRALI VALDEZ MD Computed tomography of brain without radiopaque contrast Active 10/14/17 SHORT,ANNE D LEAF BLENDER X-ray of chest, two views Active 11/11/17 RAMEZ MELENDEZ MD Encounters Encounter Location Arrival/Admit Date Discharge/Depart Date Attending Provider Discharged Inpatient (obs) [facility] 11/30/17 10:06pm 12:36pm KRISTY RODRIGUEZ MD Registered Surgical Day Care [facility] 11/17/17 10:41am FADUMO SKINNER MD Departed Emergency Room [facility] 10/29/17 8:57pm 3:24am BOSTON SALEEM MD Discharged Inpatient (obs) [facility] 10/14/17 8:32pm 11/01 12:23pm KRISTY RODRIGUEZ MD Departed Emergency Room [facility] 10/06/17 10:35am 10/06 3:26pm NIRALI VALDEZ [...]
[2017-12-21 12:09] LABS: BASOPHILS % 0.3 % (0.0-1.0); EOSINOPHILS # (AUTO) 0.1 (0.0-0.4); EOSINOPHILS % 1.3 % (0.0-6.0); HEMATOCRIT 39.3 % (34.2-44.1); LYMPHOCYTES # (AUTO) 1.5 (1.0-3.2); LYMPHOCYTES % 23.8 % (18.0-39.1); MEAN CORPUSCULAR HEMOGLOBIN 31.7 pg (28-32); MEAN CORPUSCULAR HGB CONC 33.1 g/dL (31-35); MEAN CORPUSCULAR VOLUME 95.9 fL (81-99); MONOCYTES # (AUTO) 0.8 (0.2-0.8); MONOCYTES % 12.8 % (4.4-11.3); NEUTROPHILS # (AUTO) 3.7 (2.1-6.9); NEUTROPHILS % 61.1 % (38.7-80.0); PLATELET COUNT 221 x10e3/uL (140-360); RED CELL DISTRIBUTION WIDTH 15.5 % (11.7-14.4)
[2017-12-21 12:25] LABS: ALBUMIN 3.1 g/dL (3.5-5.0); ALBUMIN/GLOBULIN RATIO 0.8 (0.8-2.0); ANION GAP 11.7 mmol/L (8-16); CALCIUM 9.7 mg/dL (8.4-10.2); CREATININE, SERUM 1.08 mg/dL (0.57-1.11); POTASSIUM 3.7 mmol/L (3.5-5.1)
--- NOTE | 2017-12-21 12:27 | Diagnostic Imaging Report ---
PROCEDURE: A single AP view of the chest. COMPARISON: 11/30/17 INDICATIONS: SEIZURES FINDINGS: Lines/tubes: Stable left chest wall port. Lungs: The lungs are well inflated. Central vascular congestion. Pleura: There is no pleural effusion or pneumothorax. Heart and mediastinum: Borderline enlarged cardiomediastinal silhouette, unchanged. Bones: No acute bony abnormality. Surgical clips overlying cervical spine, unchanged. IMPRESSION: Central vascular congestion. No focal consolidation. Dictated by: Oseas Infante M.D. on 12/21/2017 at 12:30 Electronically approved by: Oseas Infante M.D. on 12/21/2017 at 12:30
--- NOTE | 2017-12-21 12:38 | Diagnostic Imaging Report ---
EXAMINATION: Head CT HISTORY: Multiple seizures for the last 5 days COMPARISON: Head CT on 10/14/2017 TECHNIQUE: Multidetector axial images were obtained without contrast from the foramen magnum to the vertex . The images were reconstructed using brain and bone algorithms. Thin section brain images were reformatted into coronal and sagittal planes. Intravenous contrast: None. Motion/streaking artifact limits the evaluation of the skull base and posterior cranial fossa. FINDINGS: Parenchyma: 1. No abnormal densities. 2. No mass or hemorrhage. No CT evidence of acute territorial vascular insult. Extra-axial spaces:No abnormal density. No extra-axial fluid collections Brain volume: Normal for age. Ventricles: No hydrocephalus or displacement. Arteries: No density suggestive of thrombus. Dural sinuses: No abnormal density. Extra-axial spaces: No abnormal density. Foramen magnum: No mass, Chiari malformation, or basilar invagination. Sella: No obvious mass. Paranasal/mastoid sinuses: Imaged portions unremarkable. Skull/Scalp: No lytic or blastic lesions. No fractures. IMPRESSION: No intracranial mass, hemorrhage or acute cortical infarcts. Unchanged from head CT on 10/14/2017 Signed by: Dr. Lidia Martinez M.D. on 12/21/2017 12:35 PM
[2017-12-21 14:05] LABS: BILIRUBIN,URINE NEGATIVE (NEGATIVE); CLARITY,URINE CLEAR (CLEAR); COLOR,URINE YELLOW (YELLOW); KETONES,URINE NEGATIVE (NEGATIVE); LEUKOCYTE ESTERASE ,URINE NEGATIVE (NEGATIVE); NITRITE,URINE NEGATIVE (NEGATIVE); PROTEIN,URINE DIPSTICK NEGATIVE (NEGATIVE); URINE UROBILINOGEN 0.2 mg/dL (0.2 - 1)
[2017-12-21 14:17] LABS: BACTERIA,URINE RARE /HPF; EPITHELIAL CELLS,URINE FEW /LPF
[2017-12-21 15:15] VITALS: BP 160/72
[2017-12-22] MEDS ORDERED: LEVOTHYROXINE150 MCG PO (12:22)
[2017-12-22] MEDS ORDERED: ALLOPURINOL300 MG PO (12:22)
[2017-12-22] MEDS ORDERED: LANTUS 3ML100 UNITS/ SC (12:22)
[2017-12-22] MEDS ORDERED: PANTOPRAZOLE SO40 MG PO (12:22)
[2017-12-22] MEDS ORDERED: VITAMIN D35000 UNIT PO (12:48)
[2017-12-22] MEDS ORDERED: EYE HEALTH PO (12:48)
[2017-12-22] MEDS ORDERED: VITAMIN C500 M1 PO (12:48)
[2017-12-22] MEDS ORDERED: MAGNESIUM OXID400 MG PO ×2 (12:48)
[2017-12-22] MEDS ORDERED: PHENAZOPYRIDIN200 MG PO (12:48)
[2017-12-22] MEDS ORDERED: COQ-10100 MG PO (12:54)
[2017-12-22] MEDS ORDERED: CHROMIUM PIC1000 MCG PO (12:54)
[2017-12-22] MEDS ORDERED: FERROUS SULFAT324 MG PO (12:54)
== END 2017-12-21 14:58 | disposition home or self-care (01) ==
LOC: ER 10:56
DX: G40.309 Generalized idiopathic epilepsy and epileptic syndromes, not intractable, without status epilepticus (principal)
CPT/HCPCS: 36415; 70450; 71045; 80053; 81001; 85025; 93005; 99284

== ENCOUNTER → 2017-12-22 | Day surgery (SDC) | payer MEDICARE ==
[~2017-12-22] MED LIST changes: +CHROMIUM PIC1000 MCG PO; +COQ-10100 MG PO; +EYE HEALTH PO; +FERROUS SULFAT324 MG PO; +LEVOTHYROXINE150 MCG PO; +LIDOCAINE 1% W/EPINEPHRINE 20 ML VIAL ONE; +MAGNESIUM OXID400 MG PO; +PANTOPRAZOLE SO40 MG PO; +PHENAZOPYRIDIN200 MG PO; +VITAMIN C500 M1 PO; +VITAMIN D35000 UNIT PO
--- OUTSIDE RECORDS SUMMARY | 2017-12-22 11:26 | XMS REPORT | Continuity of Care Document ---
Author Author [facility] Organization [facility] Address [address] [place] [address] Phone Unavailable Care Team Providers Care Oil Speculator Name Role Phone KRISTY RODRIGUEZ MD PCP Insurance Providers Guarantor Nadia Renner Address [address] [place] [address] Email [email or web address] Payer [employer] Medicare Complete Policy Number [id number] Subscriber's Name Nadia Renner Relationship 18 Self / Same As Patient Group Number [id number] Group Name RETIRED Effective Date 17 Advance Directives Directive Response Recorded Date/Time Does the patient have an advance directive? Yes 12/21/17 12:08pm If yes, is advance directive on file with [facility]? Yes 12/21/17 12:08pm If not on file with [facility] will patient provide a copy? No 12/21/17 12:08pm Do you have a Directive to Physician? No 12/21/17 12:08pm Do you have a Medical Power of Staff Toxicologist? Yes 12/21/17 12:08pm Do you have an out of hospital Do Not Resuscitate Order? No 12/21/17 12:08pm Do you have any special needs we should be aware of? No 12/21/17 12:08pm Do you have a support person here with you today? Yes 12/21/17 12:08pm Did patient receive Notice of Privacy Practices? Yes 12/21/17 12:08pm Did patient receive patient rights and responsibilities? Yes 12/21/17 12:08pm Problems Medical Problem Onset Date Status Chest [...] No 12/01/2017 12:05am Not Applicable Not Applicable Hospital Discharge Instructions No hospital discharge instruction information available. Plan of Care Discharge Date 12/21/17 2:58pm Disposition HOME, SELF-CARE Condition at Discharge Stable Instructions/Education Provided Seizures Forms Provided Work/School Excuse Prescriptions See Medication Section Referrals KRISTY RODRIGUEZ MD Order Date: Call for an appointment Address: [address] [place] [phone] Additional Instructions/Education Please follow up with Dr Rodriguez for EEG results. call today for an appointment Take tylenol #3 for pain (at home medication) Return for any concerns Functional Status No functional status information available. [...] 99.5) 12/04/2017 11:55am Pulse Pulse Rate (adult) 67 bpm (60 - 90) 12/21/2017 3:15pm Respiratory Rate 16 bpm (12 - 24) 12/21/2017 3:15pm Blood Pressure 160/72 mm Hg 12/21/2017 3:15pm Height 5 ft 5 in 12/21/2017 11:29am Weight 268 lb 12/21/2017 11:29am Body Mass Index 44.6 kg/m^2 12/21/2017 11:29am Results Laboratory Results Test Name Result Units Flags Reference Collection Date/Time Result Date/ Time Comments Urine Fine Granular Casts 1-5 H 0 10/06/2017 12:55pm 10/06/2017 1: 29pm Lipase 14 U/L 8-78 10/06/2017 12:35pm 10/06/2017 1:21pm Influenza Virus Types A,B Antigen NEGATIVE NEGATIVE [...] developed and its performance characteristics determined by [facility]. It has not been cleared or approved by the Food and Drug Administration. Performed at: [address] [id number] Laser Set Up Operator: Sunday Alejandro MD, Phone: [phone] C-Reactive Protein 1.5 mg/L 0.0-4.9 10/15/2017 7:50am 10/16/2017 12: 55pm Performed at: [address] [id number] Laser Set Up Operator: Italo Joyner MD, Phone: [phone] Group A Streptococcus Screen NEGATIVE NEGATIVE 10/14/2017 7:35pm 7:49pm Erythrocyte Sedimentation Rate 48 mm/hr H 0-20 10/29/2017 9:20pm 2017 11:17pm Magnesium Level 1.9 MG/DL 1.3-2.1 10/29/2017 9:20pm 10/29/2017 10:47pm Prothrombin Time 12.1 seconds 11.9-14.5 11/30/2017 7:15pm [...] seconds 23.8-35.5 11/30/2017 7: 15pm 11/30/2017 7:55pm Bedside Glucose 148 mg/dL H 70-120 12/04/2017 11:05am 12/04/2017 11: 44am Meter ID: [id number] Triglycerides Level 74 MG/DL 0-149 12/01/2017 6:36am [...] 0.001 ng/mL 0-0.300 12/02/2017 3:54pm 12/02/2017 4:35pm White Blood Count 6.10 x10e3/uL 4.8-10.8 12/21/2017 12:00pm 12/21/2017 12:10pm Red Blood Count 4.10 x10e6/uL 3.6-5.1 12/21/2017 12:00pm 12/21/2017 12: 10pm Hemoglobin 13.0 g/dL 12.0-16.0 12/21/2017 12:00pm 12/21/2017 12:10pm Hematocrit 39.3 % 34.2-44.1 12/21/2017 12:00pm 12/21/2017 12:10pm Mean Corpuscular Volume 95.9 fL 81-99 12/21/2017 12:00pm 12/21/2017 12: 10pm Mean Corpuscular Hemoglobin 31.7 pg 28-32 12/21/2017 12:00pm 2017 12:10pm Mean Corpuscular Hemoglobin Concent 33.1 g/dL 31-35 12/21/2017 12:00pm 12/21/2017 12:10pm Red Cell Distribution Width 15.5 % H 11.7-14.4 12/21/2017 12:00pm 2017 12:10pm Platelet Count 221 x10e3/uL 140-360 12/21/2017 12:00pm 12/21/2017 12: 10pm Neutrophils (%) (Auto) 61.1 % 38.7-80.0 12/21/2017 12:00pm 12/21/2017 12:10pm Lymphocytes (%) (Auto) 23.8 % 18.0-39.1 12/21/2017 12:00pm 12/21/2017 12:10pm Monocytes (%) (Auto) 12.8 % H 4.4-11.3 12/21/2017 12:00pm 12/21/2017 12 :10pm Eosinophils (%) (Auto) 1.3 % 0.0-6.0 12/21/2017 12:00pm 12/21/2017 12: 10pm Basophils (%) (Auto) 0.3 % 0.0-1.0 12/21/2017 12:00pm 12/21/2017 12: 10pm IM GRANULOCYTES % 0.7 % 0.0-1.0 12/21/2017 12:00pm 12/21/2017 12:10pm Neutrophils # (Auto) 3.7 2.1-6.9 12/21/2017 12:00pm 12/21/2017 12: 10pm Lymphocytes # (Auto) 1.5 1.0-3.2 12/21/2017 12:00pm 12/21/2017 12: 10pm Monocytes # (Auto) 0.8 0.2-0.8 12/21/2017 12:00pm 12/21/2017 12:10pm Eosinophils # (Auto) 0.1 0.0-0.4 12/21/2017 12:00pm 12/21/2017 12: 10pm Basophils # (Auto) 0.0 0.0-0.1 12/21/2017 12:00pm 12/21/2017 12:10pm Absolute Immature Granulocyte (auto 0.04 x10e3/uL 0-0.1 12/21/2017 12: 00pm 12/21/2017 12:10pm Urine Color YELLOW YELLOW 12/21/2017 1:50pm 12/21/2017 2:05pm Urine Clarity CLEAR CLEAR 12/21/2017 1:50pm 12/21/2017 2:05pm Urine Specific [place] 1.020 1.010-1.025 12/21/2017 1:50pm 2017 2:05pm Urine pH 6 5 - 7 12/21/2017 1:50pm 12/21/2017 2:05pm Urine Leukocyte Esterase NEGATIVE NEGATIVE 12/21/2017 1:50pm 2017 2:05pm Urine Nitrite NEGATIVE NEGATIVE 12/21/2017 1:50pm 12/21/2017 2:05pm Urine Protein NEGATIVE NEGATIVE 12/21/2017 1:50pm 12/21/2017 2:05pm Urine Glucose (UA) NEGATIVE NEGATIVE 12/21/2017 1:50pm 12/21/2017 2: 05pm Urine Ketones NEGATIVE NEGATIVE 12/21/2017 1:50pm 12/21/2017 2:05pm Urine Urobilinogen 0.2 mg/dL 0.2 - 1 12/21/2017 1:50pm 12/21/2017 2: 05pm Urine Bilirubin NEGATIVE NEGATIVE 12/21/2017 1:50pm 12/21/2017 2: 05pm Urine Blood NEGATIVE NEGATIVE 12/21/2017 1:50pm 12/21/2017 2:05pm Urine WBC NONE /HPF 0-5 12/21/2017 1:50pm 12/21/2017 2:17pm Urine RBC NONE /HPF 0-5 12/21/2017 1:50pm 12/21/2017 2:17pm Urine Bacteria RARE /HPF NONE 12/21/2017 1:50pm 12/21/2017 2:17pm Urine Epithelial Cells FEW /LPF NONE 12/21/2017 1:50pm 12/21/2017 2: 17pm Sodium Level 143 mmol/L 136-145 12/21/2017 12:00pm 12/21/2017 12:26pm Potassium Level 3.7 mmol/L 3.5-5.1 12/21/2017 12:00pm 12/21/2017 12: 26pm Chloride Level 106 mmol/L 98-107 12/21/2017 12:00pm 12/21/2017 12:26pm Carbon Dioxide Level 29 mmol/L 22-29 12/21/2017 12:00pm 12/21/2017 12: 26pm Anion Gap 11.7 mmol/L 8-16 12/21/2017 12:00pm 12/21/2017 12:26pm Blood Urea Nitrogen 24 mg/dL 7-26 12/21/2017 12:00pm 12/21/2017 12: 26pm Creatinine 1.08 mg/dL 0.57-1.11 12/21/2017 12:00pm 12/21/2017 12:26pm BUN/Creatinine Ratio 22 6-25 12/21/2017 12:00pm 12/21/2017 12:26pm Estimat Glomerular Filtration Rate 51 ML/MIN L 60- 12/21/2017 12:00pm 12:26pm Ranges were taken from the National Kidney Disease Education Program and the National Kid[employer] Foundation literature. Reference ranges: 60 or greater: Normal 16-59 (for 3 consecutive months): Chronic kidney disease 15 or less: Kidney failure Glucose Level 108 mg/dL 74-118 12/21/2017 12:00pm 12/21/2017 12:26pm Calcium Level 9.7 mg/dL 8.4-10.2 12/21/2017 12:00pm 12/21/2017 12:26pm Total Bilirubin 0.5 mg/dL 0.2-1.2 12/21/2017 12:00pm 12/21/2017 12: 26pm Aspartate Amino Transf (AST/SGOT) 12 IU/L 5-34 12/21/2017 12:00pm 12/21 12:26pm Alanine Aminotransferase (ALT/SGPT) 11 IU/L 0-55 12/21/2017 12:00pm 02/2018 12:26pm Total Protein 6.8 g/dL 6.5-8.1 12/21/2017 12:00pm 12/21/2017 12:26pm Albumin 3.1 g/dL L 3.5-5.0 12/21/2017 12:00pm 12/21/2017 12:26pm Globulin 3.7 g/dL H 2.3-3.5 12/21/2017 12:00pm 12/21/2017 12:26pm Albumin/Globulin Ratio 0.8 0.8-2.0 12/21/2017 12:00pm 12/21/2017 12: 26pm Alkaline Phosphatase 79 IU/L 40-150 12/21/2017 12:00pm 12/21/2017 12: 26pm Procedures Procedure Status Date Provider(s) CYSTOSCOPY & URETER CATHETER Completed 08/26/17 DHARA CHAVIRA MD CYSTOSCOPY AND TREATMENT Completed 10/02/17 DHARA CHAVIRA MD EGD BIOPSY SINGLE/MULTIPLE Completed 11/17/17 FADUMO SKINNER MD DILATE ESOPHAGUS 1/MULT PASS Completed 11/17/17 FADUMO SKINNER MD L HRT ARTERY/VENTRICLE ANGIO Completed 11/30/17 CANDIDA DE LA GARZA MD X-ray of chest, two views Active 08/24/[address] of abdomen and pelvis without contrast Active 10/06/17 NIRALI VALDEZ MD Computed tomography of brain without radiopaque contrast Active 10/14/17 ANNE WILSON NP X-ray of chest, two views Active 11/11/17 RAMEZ MELENDEZ MD Computed tomography of brain without radiopaque contrast Active 12/21/17 OMI HAYS NP Encounters Encounter Location Arrival/Admit Date Discharge/Depart Date Attending Provider Departed Emergency Room [facility] 12/21/17 10:56am 12/21 2:58pm NESSA BAUTISTA MD Discharged Inpatient (obs) [facility] 11/30/17 10:06pm 12:36pm KRISTY RODRIGUEZ MD [...] [facility] 10/02/17 10:16am DHAAR CHAVIRA MD Registered Clinic [facility] 09/17/17 8:53am DHARA CHAVIRA MD Registered Surgical Day Care [facility] 08/26/17 5:09am DHARA CHAVIRA MD Registered Clinic [facility] 06/17/17 1:35pm DHARA CHAVIRA MD
[2017-12-22 12:30] VITALS: BP 188/94
[2017-12-22 12:45] VITALS: BP 176/80
[2017-12-22 13:00] VITALS: BP 167/74
--- NOTE | 2017-12-22 14:34 | Operative Report ---
DATE OF PROCEDURE: December 22, 2017 INDICATION: Palpitations. PROCEDURE PERFORMED: Insertable loop recorder. PROCEDURE: The left anterior chest wall was anesthetized using subcutaneous lidocaine, and a Xanga Linq, serial number [id number], was inserted without complications. Skin was approximated using Dermabond. Patient discharged home same day. Job#: [id number] EV
== END | disposition home or self-care (01) ==
LOC: CATH LAB 11:24
PROVIDERS: ATTEND Internal Medicine Interventional Cardiology
DX: R00.2 Palpitations (principal)
CPT/HCPCS: 33282; C1764

== ENCOUNTER → 2019-01-14 | Outpatient (CLI) | payer MEDICARE ==
[~2019-01-14] MED LIST changes: -LIDOCAINE 1% W/EPINEPHRINE 20 ML VIAL ONE
--- NOTE | 2019-01-14 16:21 | Diagnostic Imaging Report ---
EXAMINATION: Thyroid ultrasound. CLINICAL HISTORY: Thyroid ectomy 2015, hypothyroidism COMPARISON: None. . DISCUSSION: Transverse and longitudinal images of the thyroid were obtained utilizing grayscale and color Doppler modalities. The thyroid has been removed. No abnormal mass or fluid collection is identified in the thyroid bed. There is no adenopathy. IMPRESSION: Status post thyroidectomy without mass or fluid collection in the surgical bed. Signed by: Dr. Mark Church M.D. on 01/14/2019 4:18 PM
== END ==
LOC: US 13:35
PROVIDERS: ATTEND Family Medicine
DX: E03.9 Hypothyroidism, unspecified (principal)
CPT/HCPCS: 76536

== ENCOUNTER 2019-04-23 01:17 | Inpatient (IN) | payer MEDICARE, SELFPAY ==
[2019-04-23] VITALS (7 sets, daily range): BP systolic 127–167; BP diastolic 58–77
[~2019-04-23] VITALS: Ht 165.1 cm; Wt 146.1 kg
[2019-04-23] MEDS ORDERED: ASPIRIN 81 MG CHEW TAB PO STA (01:18)
--- OUTSIDE RECORDS SUMMARY | 2019-04-23 01:21 | XMS REPORT | Clinical Summary ---
Author Author [facility] Organization [facility] Address Unknown Phone Unavailable Care Team Providers Care Director Of Music Name Role Phone Praveen Foss MD PCP Allergies Comments Active Allergy Reactions Severity Noted Date Fluticasone 01/04/2018 Propion-Salmeterol Muscle tremors Amitriptyline 05/24/2013 Amoxicillin Itching 01/04/2018 Amoxicillin-Pot Itching 05/24/2013 Clavulanate Headache Aspartame 05/24/2013 Aspirin Anaphylaxis High 01/04/2018 Muscle tremors Baclofen 05/24/2013 Povidone-Iodine Itching, Rash Low 01/04/2018 Betamethasone Acet,Sod Palpitations Low 01/04/2018 Phos Cephalexin Itching 05/24/2013 Hydrocodone-Acetaminophen Itching 05/24/2013 TOPICAL IODINE IV IODINE REACTION 47 YRS AGO Iodine And Iodide Itching 05/24/2013 Containing Products Atorvastatin 01/04/2018 Gemfibrozil 01/04/2018 Pregabalin 01/04/2018 Myacid D.S. Itching 01/04/2018 Nsaids (Non-Steroidal 10/04/2018 Anti-Inflammatory Drug) artificial sweetner Headache nausea vomiting Other Food 10/04/2018 Penicillins Itching 05/24/2013 Oxycodone-Acetaminophen 01/04/2018 tachycardia Lisinopril 10/04/2018 unknown Propantheline 10/05/2013 Metoclopramide Hcl 01/04/2018 Methocarbamol 01/04/2018 Pentazocine Lactate 01/04/2018 Not sure Carbamazepine 10/04/2018 Tetanus Vaccines And Rash, Low 05/24/2013 Toxoid Swelling Tetracyclines Itching 05/24/2013 Tramadol Itching, Rash Low 05/24/2013 Metolazone 01/04/2018 Ezetimibe 01/04/2018 Simvastatin 01/04/2018 Medications End Date Status Medication Sig Dispensed Refills Start Date Active allopurinol (ZYLOPRIM) Daily- 0 300 MG tablet morning Active clopidogrel (PLAVIX) 75 Daily 0 mg tablet Active colchicine (COLCRYS) 0.6 As Needed 0 mg tablet Active diphenhydrAMINE Every 4 Hours 0 (BENADRYL) 25 mg capsule as needed for Allergy Active gabapentin (NEURONTIN) takes 3 tabs 0 400 mg capsule of 400mg TID Active insulin GLARGINE (LANTUS Take 60 Units 0 SOLOSTAR U-100 INSULIN) in the 100 unit/mL injection morning (pen) Active lavender oil oil Daily 0 Active letrozole (FEMARA) 2.5 mg Daily- 0 chemo tablet morning Active spironolactone Take 25 mg by 0 (ALDACTONE) 25 MG tablet mouth every morning. Active nitroglycerin (NITROSTAT) Place 0.4 mg 0 0.4 MG SL tablet under the tongue every 5 (five) minutes as needed for chest pain. Active insulin lispro (HumaLOG) Inject under 0 100 unit/mL injection the skin 3 (three) times a day before meals. Sliding scale Active traZODone (DESYREL) 100 Take 100 mg 0 MG tablet by mouth nightly. Active mirabegron (MYRBETIQ) 50 Take 50 mg by 0 mg tablet extended mouth every release 24 hr morning. Active chlorzoxazone (PARAFON Take 500 mg 0 FORTE) 500 mg tablet by mouth 2 (two) times a day. Active HEParin, porcine, in 0.9% Infuse into a 0 NaCl (HEParin Flush) 10 venous unit/mL kit catheter. Active promethazine (PHENERGAN) Take 25 mg by 0 25 MG tablet mouth every 6 (six) hours as needed for nausea or vomiting. Active tiZANidine (ZANAFLEX) 4 Take 1 tablet 0 MG tablet by mouth 7 nightly. Active ONETOUCH DELICA LANCETS U UTD TID 5 30 gauge misc 9 Active losartan (COZAAR) 25 MG TK 1 T PO QD 3 tablet in the 9 morning Active BD ULTRA-FINE OMAR PEN USE UTD 5 5 NEEDLE 32 gauge x 5/32" TIMES A DAY 9 needle Active RANEXA 500 mg 12 hr ER TK 1 T PO BID 0 tablet 9 Active temazepam (RESTORIL) 30 TK 2 C PO QHS 0 mg capsule 9 Active diphenoxylate-atropine Take 1 tablet 0 (LOMOTIL) 2.5-0.025 mg by mouth 4 per tablet (four) times a day as needed for diarrhea. Active furosemide (LASIX) 20 mg Take 20 mg by 0 tablet mouth every morning. Active thyroid,pork (LAWYER PROBATE THYROID Take by mouth 0 ORAL) every morning. Takes 1.5 grains - ( one tab is 1 gr and the other tab is .5 Gr. ) Active metoprolol tartrate Take 25 mg by 0 (LOPRESSOR) 25 mg tablet mouth every morning. Active pantoprazole (PROTONIX) Take 40 mg by 0 40 MG EC tablet mouth 2 (two) times a day. Active sucralfate (CARAFATE) 1 Take 1 g by 0 gram tablet mouth 4 (four) times a day. 11/18/2018 Discontinued levothyroxine (SYNTHROID) Today At 0 125 mcg tablet 6:30AM 11/18/2018 Discontinued liothyronine (CYTOMEL) 5 Daily 0 MCG tablet 11/18/2018 Discontinued pantoprazole (PROTONIX) Take 40 mg by 0 40 MG EC tablet mouth daily. 11/18/2018 Discontinued metoprolol succinate XL Take 25 mg by 0 (TOPROL-XL) 25 mg 24 hr mouth 2 (two) tablet times a day. 11/18/2018 Discontinued furosemide (LASIX) 40 Take by mouth 0 mg/4 mL solution oral daily. solution 10/04/2018 Discontinued phenazopyridine HCl (AZO Take by 0 ORAL) mouth. 10/04/2018 Discontinued vits Take by 0 A,C,E/lutein/zeax/zn/belkys mouth. (EYE HEALTH FORMULA ORAL) 10/04/2018 Discontinued cholecalciferol, vitamin Take 2,000 0 D3, (VITAMIN D3) 2,000 Units by unit capsule capsule mouth daily. 10/04/2018 Discontinued chromium picolinate 1,000 Take by 0 mcg tablet mouth. 10/04/2018 Discontinued ferrous fumarate-vitamin Take 1 tablet 0 C (KAREN-SEQUELS, by mouth IRON-VIT C,) 200 mg (65 daily. mg iron)-25 mg tablet extended release ER tablet 10/04/2018 Discontinued TEA TREE OIL TOP Apply 0 topically. 11/18/2018 Discontinued temazepam (RESTORIL) 30 Take 30 mg by 0 mg capsule mouth nightly as needed for sleep. 10/27/2018 Discontinued (Reorder) tamsulosin (FLOMAX) 0.4 Take 1 30 capsule 0 mg capsule capsule (0.4 9 mg total) by mouth daily for 30 days. 10/27/2018 Discontinued (Reorder) phenazopyridine Take 2 18 tablet 0 (PYRIDIUM) 100 MG tablet tablets (200 9 mg total) by mouth 3 (three) times a day for 3 days. 10/27/2018 Discontinued (Reorder) traMADol (ULTRAM) 50 mg Take 1 tablet 10 tablet 0 tablet (50 mg total) 9 by mouth every 6 (six) hours as needed for moderate pain for up to 10 days. 11/26/2018 tamsulosin (FLOMAX) 0.4 Take 1 30 capsule 0 mg capsule capsule (0.4 9 mg total) by mouth daily for 30 days. Additional information Patient taking differently: 0.4 mg oral every morning, Informant: Self, Reported on 11/18/2018 12:08 PM 10/27/2018 Discontinued (Stop Taking at Discharge) traMADol (ULTRAM) 50 mg Take 1 tablet 10 tablet 0 tablet (50 mg total) 9 by mouth every 6 (six) hours as needed for moderate pain for up to 10 days. 10/30/2018 phenazopyridine Take 2 18 tablet 0 (PYRIDIUM) 100 MG tablet tablets (200 9 mg total) by mouth 3 (three) times a day for 3 days. 11/03/2018 acetaminophen-codeine Take 1 tablet 9 tablet 0 (TYLENOL WITH CODEINE #3) by mouth 9 300-30 mg per tablet every 6 (six) hours as needed for moderate pain for up to 7 days. 11/15/2018 sulfamethoxazole-trimetho Take 1 tablet 14 tablet 0 prim (BACTRIM DS) 800-160 by mouth 2 9 mg per tablet (two) times a day for 7 days. 12/14/2018 acetaminophen-codeine Take 1 tablet 21 tablet 0 (TYLENOL WITH CODEINE #3) by mouth 9 300-30 mg per tablet every 4 (four) hours as needed for moderate pain for up to 21 doses. 01/09/2019 docusate sodium (COLACE) Take 1 60 capsule 0 100 MG capsule capsule (100 9 mg total) by mouth 2 (two) times a day for 30 days. 01/21/2019 tamsulosin (FLOMAX) 0.4 Take 1 42 capsule 0 mg capsule capsule (0.4 9 mg total) by mouth daily for 42 days. 01/09/2019 docusate sodium (COLACE) Take 1 60 capsule 0 100 MG capsule capsule (100 9 mg total) by mouth 2 (two) times a day for 30 days. 12/30/2018 sulfamethoxazole-trimetho Take 1 tablet 6 tablet 0 prim (BACTRIM DS) 800-160 by mouth 2 9 mg per tablet (two) times a day for 3 days. 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 Other hydronephrosis 02/18/2018 Encounters Care Team Description Date Type Specialty Ольга Chavez MD Ureteropelvic junction (UPJ) obstruction, right (Primary Dx) 01/17/2019 Procedure visit Urology Ольга Chavez MD Postop check (Primary Dx); Ureteropelvic junction (UPJ) obstruction, right 12/27/2018 Office Visit Urology Ольга Chavez MD 12/13/2018 Telephone Urology Annemarie Brown 12/10/2018 Patient Quality Outreach Ольга Chavez MD ROBOTIC ASSISTED LAPAROSCOPIC RIGHT PYELOPLASTY, PERCUTANEOUS RIGHT STENT INSERTION, LYSIS OF ADHESIONS 12/08/2018 Surgery Urology Jean-Pierre Alejandra DO Delaflor-Santaana, Miriam, NP 12/08/2018 Anesthesia Urology Event Ольга Chavez MD UPJ obstruction, congenital 12/08/2018 [facility] General Internal Medicine - Encounter 12/10/2018 Karla Courtney MA 11/30/2018 Telephone Urology Ольга Chavez MD Preop testing (Primary Dx) 11/22/2018 Pre-Admit Pre-Admission Testing Testing Appointment Ольга Chavez MD 11/08/2018 Telephone Urology Ольга Chavez MD 11/08/2018 Telephone Urology Morales Knapp MD Obstruction of right ureteropelvic junction (UPJ) 11/05/2018 Hospital Radiology Encounter Karla Courtney MA 11/03/2018 Telephone Urology Ольга Chavez MD Obstruction of right ureteropelvic junction (UPJ) (Primary Dx); Right flank pain 11/01/2018 Office Visit Urology Ольга Chavez MD 11/01/2018 Telephone Urology Praveen Foss MD Unilateral hydronephrosis (Primary Dx) 10/29/2018 Transcribe Urology Orders Ad Delgadillo, Acute post-operative pain (Primary Dx) 10/28/2018 Emergency Emergency Medicine - 10/29/2018 Ольга Chavez MD Pain 10/28/2018 Hospital Radiology Encounter Ольга Chavez MD CYSTOSCOPY, RIGHT RETROGRADE, RIGHT STENT INSERTION 10/27/2018 Surgery Urology Virginia Monte MD Delaflor-Santaana, Miriam, NP 10/27/2018 Anesthesia Urology Event Ольга Chavez MD 10/27/2018 Hospital Urology Encounter Ольга Chavez MD 10/27/2018 Refill Urology Ольга Chavez MD Preop testing 10/04/2018 Hospital Radiology Encounter Ольга Chavez MD Preop testing (Primary Dx) 10/04/2018 Pre-Admit Pre-Admission Testing Testing Appointment Ольга Chavez MD Hydronephrosis of right kidney (Primary Dx); Ureteropelvic junction (UPJ) obstruction, right 10/04/2018 Office Visit Urology Ольга Chavez MD 09/29/2018 Telephone Urology Ольга Chavez MD Hydronephrosis of right kidney 09/27/2018 Hospital Radiology Encounter Ольга Chavez MD Hydronephrosis of right kidney (Primary Dx); Right flank pain 09/20/2018 Office Visit Urology Ольга Chavez MD Other hydronephrosis 09/17/2018 Hospital Radiology Encounter Nathalie Reid MA Other hydronephrosis (Primary Dx) 09/16/2018 Telephone Urology after 04/22/2018 Family History Medical History Relation Name Comments Heart disease Father Liver disease Father Breast cancer Mother COPD Mother Cancer Mother Diabetes Mother Heart disease Mother Hyperlipidemia Mother Relation Name Status Comments Father Mother Social History Date Tobacco Use Types Packs/Day Years Used Never Smoker Smokeless Tobacco: Never Used Drinks/Week oz/Week Comments Alcohol Use occaional Yes Sex Assigned at Date Recorded Female 11/15/2018 8:28 PM CDT Industry Job Start Date Occupation Not on file Not on file Not on file Travel End Travel History Travel Start No recent travel history available. Last Filed Vital Signs Reading Time Taken Comments Vital Sign 134/62 12/10/2018 3:57 PM CDT Blood Pressure 69 12/10/2018 3:57 PM CDT Pulse 37.1 C (98.7 F) 12/10/2018 3:57 PM CDT Temperature 18 12/10/2018 3:57 PM CDT Respiratory Rate 95% 12/10/2018 3:57 PM CDT Oxygen Saturation - - Inhaled Oxygen Concentration 135 kg (298 lb 2 oz) 12/08/2018 6:51 AM CDT Weight 165.1 cm (5' 5") 12/08/2018 6:51 AM CDT Height 49.61 12/08/2018 6:51 AM CDT Body Mass Index Plan of Treatment Health Maintenance Due Date Last Done Comments BREAST CANCER SCREENING 2001 COLONOSCOPY SCREENING 2001 SHINGLES VACCINES (#1) 2001 65+ PNEUMOCOCCAL VACCINE 2016 (1 of 2 - PCV13) INFLUENZA VACCINE 03/17/2019 11/02/2018 Implants Device Identifier Shelf Expiration Date Model / Serial / Lot Implanted Type Area Manufactur er [id number] / / Clip Ligtng Hem-O-Carmen Endoscpc Aplr Surgical N/A: N/A ERIK Pool Lg - [id number] Implants; CLOSURE Implanted: Qty: 1 on 12/08/2018 by [employer]; Ольга Beltre MD at [facility] Extenders; Surgical Wires [id number] / / Clip [employer]igtng Hem-O-Carmen Endoscpc Aplr Surgical N/A: N/A ERIK Pool Lg - [id number] Implants; CLOSURE Implanted: Qty: 1 on 12/08/2018 by [employer]; Ольга Beltre MD at [facility] Extenders; Surgical Wires 07/12/2021 192 132 / / [id number] Stent Uretl Polrs Ult [id number] 6fr Urological N/A: N/A BSC 24cm Hydroplus W/O Gw - [id number] Implants UROLOGY Implanted: Qty: 1 on 10/27/2018 by or Ольга Burgos MD at [facility] 09/12/2021 192 133 / / [id number] Stent Roberto Carlos Frankst [id number] 6fr Urological Right: N/A BSC 26cm Hydroplus W/O Gw - [id number] Implants UROLOGY Implanted: Qty: 1 on 12/08/2018 by or Ольга Burgos MD at [facility] Procedures Comments Procedure Name Priority Date/Time Associated Diagnosis POC GLUCOSE Routine 12/10/2018 12:17 PM CDT CREATININE LEVEL, MISC STAT 12/10/2018 FLUID 8:50 AM CDT HEMOGLOBIN & HEMATOCRIT STAT 12/10/2018 8:50 AM CDT POC GLUCOSE Routine 12/10/2018 7:50 AM CDT HEMOGLOBIN & HEMATOCRIT STAT 12/10/2018 7:20 AM CDT ESTIMATED GFR Routine 12/10/2018 4:00 AM CDT BASIC METABOLIC PANEL Routine 12/10/2018 4:00 AM CDT HC COMPLETE BLD COUNT Routine 12/10/2018 W/AUTO DIFF 3:30 AM CDT POC GLUCOSE Routine 12/09/2018 9:46 PM CDT POC GLUCOSE Routine 12/09/2018 5:38 PM CDT POC GLUCOSE Routine 12/09/2018 11:46 AM CDT POC GLUCOSE Routine 12/09/2018 8:01 AM CDT SMEAR REVIEW Routine 12/09/2018 5:45 AM CDT HC COMPLETE BLD COUNT Routine 12/09/2018 W/AUTO DIFF 5:45 AM CDT ESTIMATED GFR Routine 12/09/2018 4:00 AM CDT BASIC METABOLIC PANEL Routine 12/09/2018 4:00 AM CDT POC GLUCOSE Routine 12/08/2018 9:02 PM CDT POC GLUCOSE Routine 12/08/2018 7:01 PM CDT POC GLUCOSE Routine 12/08/2018 4:32 PM CDT XR CHEST 1 VW PORTABLE STAT 12/08/2018 3:02 PM CDT XR ABDOMEN 1 VW PORTABLE STAT 12/08/2018 3:01 PM CDT SURGICAL PATHOLOGY Routine 12/08/2018 REQUEST 2:59 PM CDT ESTIMATED GFR Routine 12/08/2018 2:06 PM CDT BASIC METABOLIC PANEL Routine 12/08/2018 2:06 PM CDT HEMOGLOBIN & HEMATOCRIT Routine 12/08/2018 2:06 PM CDT POC GLUCOSE Routine 12/08/2018 1:49 PM CDT WA AN ELECTIVE Routine 12/08/2018 ENDOTRACHEAL AIRWAY 9:16 AM CDT Procedure Note - Monica Hernandez - 12/08/2018 9:16 AM CDT Airway Performed by: Monica Hernandez Authorized by: Jean-Pierre Alejandra DO Location: OR Urgency: Elective Difficult Airway: No Performed by: resident/C RNA/AA Preoxygena jaye with 100% O2: Yes Mask Ventilatio n: Easy mask Final Airway Type: Endotrache al airway Final Endotrache al Airway: ETT Cuffed: Yes Technique Used: Video laryngosco py Devices/Me thods Used in Placement: Intubatin g stylet Insertion Site: Oral Blade Type: Kevin Laryngosco pe Blade/Vide olaryngosc ope Blade Size: 3 ETT Size (mm): 7.0 Cuff at minimum occlusion pressure: Yes Measured from: Lips ETT to Lips (cm): 23 Placement Verified by: CO2 detection, direct visualizat ion and equal breath sounds Laryngosco pic view: Grade I - full view of glottis Number of Attempts at Approach: 1 CENTRAL LINE Routine 12/08/2018 8:57 AM CDT Procedure Note - Jean-Pierre Alejandra DO - 12/08/2018 8:57 AM CDT Central line Performed by: Jean-Pierre Alejandra DO Authorized by: Jean-Pierre Alejandra DO Patient Location: OR Staff: Performed by: Talisha lyles Preprocedu re:patient identified , IV checked, site and side verified, risks and benefits discussed, procedure verified, surgical consent complete, patient position confirmed, monitors and equipment checked and pre-op evaluation complete MSBT: antiseptic used during central venous catheter insertion, all elements of maximal sterile barrier technique followed, hand hygiene performed prior to central venous catheter insertion, cap/gown used by other personnel during central venous catheter insertion, solutions labeled and all ports not used during insertion clamped Indication s: Indication s: Vascular access Anesthesia : Anesthesia : General Procedure details: Patient position: Trendelenb urg Catheter Type: Double lumen Catheter Size: 8 Fr Catheter Site: internal jugular vein Catheter site laterality : Right Ultrasound guidance used: Yes Ultrasound image saved: Yes Number of attempts: 1 Successful placement: Yes Guidewire removal: Guidewire removal is confirmed Post-proc edure: Post-proce dure: line sutured, sterile dressing applied per protocol and ports flushed with saline Patient tolerance: Patient tolerated the procedure well with no immediate complicati ons ARTERIAL LINE Routine 12/08/2018 8:56 AM CDT Procedure Note - Jean-Pierre Alejandra DO - 12/08/2018 8:56 AM CDT Arterial line Performed by: Jean-Pierre Alejandra DO Authorized by: Jean-Pierre Alejandra DO Patient Location: OR Staff: Performed by: Talisha lyles Pre-proced ure: patient identified , IV checked, site and side verified, risks and benefits discussed, procedure verified, surgical consent complete, patient position confirmed, monitors and equipment checked and pre-op evaluation complete MSBT: antiseptic used, all elements of maximal sterile barrier technique followed, hand hygiene performed, cap/gown used by other personnel and solutions labeled Indication s: Indication s: hemodynami c monitoring Anesthesia : Anesthesia : General Procedure Details: Arterial Line placement: Placed post induction Line placement site: Radial Line placement side: Left Arterial line gauge: 20 G Number of attempts: 1 Ultrasound guidance used: Yes Post-proc edure: Post-proce dure: Sterile dressing applied Post procedure circulatio n, sensation, movement: Normal Patient tolerance: Patient tolerated the procedure well with no immediate complicati ons PYELOPLASTY, 12/08/2018 UPJ obstruction, LAPAROSCOPIC, 7:58 AM CDT congenital ROBOT-ASSISTED Case Notes XI Special Needs XI POC GLUCOSE Routine 12/08/2018 7:03 AM CDT ESTIMATED GFR Routine 11/22/2018 8:55 AM CDT COMPREHENSIVE METABOLIC Routine 11/22/2018 Preop testing PANEL 8:55 AM CDT CBC HEMOGRAM Routine 11/22/2018 Preop testing 8:55 AM CDT PARTIAL THROMBOPLASTIN Routine 11/22/2018 Preop testing TIME (PTT) 8:55 AM CDT PROTHROMBIN TIME WITH INR Routine 11/22/2018 Preop testing 8:55 AM CDT TYPE AND SCREEN Routine 11/22/2018 Preop testing 8:55 AM CDT URINALYSIS SCREEN AND Routine 11/22/2018 Preop testing MICROSCOPY, WITH REFLEX 8:55 AM CDT TO CULTURE URINE CULTURE Routine 11/22/2018 8:[address] ANGIOGRAM ABDOMEN W WO Routine 11/05/2018 Obstruction of right CONTRAST 9:34 AM CDT ureteropelvic junction (UPJ) ESTIMATED GFR Routine 11/05/2018 8:49 AM CDT POC CREATININE Routine 11/05/2018 8:49 AM CDT MICROSCOPIC EXAMINATION Routine 11/01/2018 9:29 AM CDT URINALYSIS, COMPLETE, Routine 11/01/2018 Obstruction of right WITH REFLEX TO CULTURE 9:29 AM CDT ureteropelvic junction (UPJ) URINE CULTURE, Routine 11/01/2018 COMPREHENSIVE (VERONICA 9:29 AM CDT HIST) POC URINALYSIS DIPSTICK Routine 11/01/2018 Obstruction of right 8:27 AM CDT ureteropelvic junction (UPJ) URINE CULTURE STAT 10/29/2018 3:55 AM CDT GRAM STAIN STAT 10/29/2018 3:55 AM CDT URINALYSIS SCREEN AND STAT 10/29/2018 MICROSCOPY, WITH REFLEX 3:10 [address] TO C[address]URE [address] ABDOMEN PELVIS WO STAT 10/29/2018 CONTRAST 2:59 AM CDT AMYLASE LEVEL STAT 10/29/2018 1:20 AM CDT LIPASE LEVEL STAT 10/29/2018 1:20 AM CDT ESTIMATED GFR STAT 10/29/2018 1:20 AM CDT COMPREHENSIVE METABOLIC STAT 10/29/2018 PANEL 1:20 AM CDT HC COMPLETE BLD COUNT STAT 10/29/2018 W/AUTO DIFF 1:20 AM CDT POC GLUCOSE Routine 10/27/2018 4:22 PM CDT POC GLUCOSE Routine 10/27/2018 2:17 PM CDT FL < 1 HOUR Routine 10/27/2018 Pain 1:55 PM CDT WA AN ELECTIVE Routine 10/27/2018 ENDOTRACHEAL AIRWAY 1:45 PM CDT Procedure Note - Yuko Whitlock CRNA - 10/27/2018 1:45 PM CDT Airway Date/Time: 10/27/2018 1:45 PM Performed by: Yuko Whitlock CRNA Authorized by: Virginia Monte MD Location: OR Urgency: Elective Difficult Airway: No Preoxygena jaye with 100% O2: Yes C-spine Precaution s Maintained Throughout : Yes Mask Ventilatio n: Easy mask Final Airway Type: Endotrache al airway Final Endotrache al Airway: ETT Cuffed: Yes Technique Used: Direct laryngosco py Devices/Me thods Used in Placement: Intubatin g stylet Insertion Site: Oral Blade Type: Owusu Laryngosco pe Blade/Vide olaryngosc ope Blade Size: 2 ETT Size (mm): 7.0 Cuff at minimum occlusion pressure: Yes Measured from: Lips ETT to Lips (cm): 22 Placement Verified by: CO2 detection, direct visualizat ion and equal breath sounds Laryngosco pic view: Grade I - full view of glottis Rapid Sequence Induction (RSI): No Modified RSI: No Number of Attempts at Approach: 1 Dentition intact CYSTO RETROGRADE 10/27/2018 Hydronephrosis 1:25 PM CDT Case Notes REQ 1400 START, @1500 OSCAR CHG START TIME FROM 11AM TO 2PM (SASHA IN [place]) 10/26/18TW Special Needs REQ 1400 START POC GLUCOSE Routine 10/27/2018 11:34 AM CDT XR CHEST 2 VW Routine 10/04/2018 Preop testing 12:52 PM CHEMICAL PATHOLOGIST ECG PRE/POST OP Routine 10/04/2018 Preop testing 11:36 AM CHEMICAL PATHOLOGIST HEMOGLOBIN A1C Routine 10/04/2018 Preop testing 11:29 AM CHEMICAL PATHOLOGIST MICROSCOPIC EXAMINATION Routine 10/04/2018 10:43 AM CHEMICAL PATHOLOGIST URINALYSIS, AUTOMATED Routine 10/04/2018 WITH MICROSCOPY 10:43 AM CHEMICAL PATHOLOGIST URINE CULTURE Routine 10/04/2018 Hydronephrosis of right 10:43 AM CHEMICAL PATHOLOGIST kidney ESTIMATED GFR Routine 10/04/2018 9:48 AM CHEMICAL PATHOLOGIST COMPREHENSIVE METABOLIC Routine 10/04/2018 Preop testing PANEL 9:48 AM CHEMICAL PATHOLOGIST HC COMPLETE BLD COUNT Routine 10/04/2018 Preop testing W/AUTO DIFF 9:48 AM CHEMICAL PATHOLOGIST PARTIAL THROMBOPLASTIN Routine 10/04/2018 Preop testing TIME (PTT) 9:48 AM CHEMICAL PATHOLOGIST PROTHROMBIN TIME WITH INR Routine 10/04/2018 Preop testing 9:48 AM CHEMICAL PATHOLOGIST POC URINALYSIS DIPSTICK Routine 10/04/2018 Hydronephrosis of right 8:22 AM CHEMICAL PATHOLOGIST kidney NM RENAL SCAN WFLOW FUNCT Routine 09/27/2018 Hydronephrosis of right SGL INT W/MAG 3 9:43 AM CHEMICAL PATHOLOGIST kidney POC URINALYSIS DIPSTICK Routine 09/20/2018 Hydronephrosis of right 9:06 AM CHEMICAL PATHOLOGIST kidney Right flank pain US RENAL Routine 09/17/2018 Other hydronephrosis 4:50 PM CHEMICAL PATHOLOGIST after 04/22/2018 Results * POC glucose (12/10/2018 12:17 PM CDT) Only the most recent of 14 results within the time period is included. [facility] POC glucose 129 (H) 65 - 99 mg/dL [place] Comment: [employer] [facility] Notified RN HOSPITAL Meter ID: [id number] Pulling Machine Operator: Bairon Gonzales Specimen Performing Organization Address City/[facility]/Zipcode Phone Number [facility] DEPARTMENT OF [address] [place] [address] PATHOLOGY AND GENOMIC MEDICINE [address] * Hemoglobin & hematocrit (12/10/2018 8:50 AM CDT) Only the most recent of 3 results within the time period is included. [facility] HGB 9.3 (L) 12.0 - 16.0 g/dL [facility] HCT 30.0 (L) 37.0 - 47.0 % [facility] Specimen Blood Performing Organization Address City/[facility]/Zipcode Phone Number [facility] DEPARTMENT OF [address] [place] [address] PATHOLOGY AND GENOMIC MEDICINE [address] * Creatinine level, misc fluid (12/10/2018 8:50 AM CDT) [facility] Fluid type Peritoneal [facility] Creatinine, 1.4 mg/dL [place] fluid Comment: [employer] The reference interval(s) and HOSPITAL other method performance specifications have not been established for this body fluid. The test results must be integrated into the clinical context for interpretation. Specimen Fluid Performing Organization Address City/[facility]/Zipcode Phone Number [facility] DEPARTMENT [address] AND [address] * Estimated GFR (12/10/2018 4:00 AM CDT) Only the most recent of 7 results within the time period is included. [facility] Estimated GFR 40 (A) mL/min/1.73 m2 [place] Comment: [facility] rpretation G1 >=90 Normal or high G2 60-89Mildly decreased [id number] Mildly to moderately decreased [id number] Moderately to severely decreased G4 15-29Severely decreased G5 <15Kidney failure The eGFR was calculated using the Chronic Kidney Disease Epidemiology Collaboration (CKD-EPI) equation. Interpretation is based on recommendations of the National Kidney Foundation-Kidney Disease Outcomes Quality Initiative (NKF-KDOQI) published in 2014. Specimen Plasma specimen Performing Organization Address [facility] Centercode Phone Number [facility] DEPARTMENT [address] * Basic metabolic panel (12/10/2018 4:00 AM CDT) Only the most recent of 3 results within the time period is included. [facility] Sodium 137 135 - 148 mEq/L [facility] Potassium 4.1 3.5 - 5.0 mEq/L [facility] Chloride 101 98 - 112 mEq/L [facility] CO2 25 24 - 31 mEq/L [facility] Anion gap 11@ANIO 7 - 15 mEq/L [facility] BUN 23 8 - 23 mg/dL [facility] Creatinine 1.36 (H) 0.50 - 0.90 mg/dL [facility] Glucose 122 (H) 65 - 99 mg/dL [facility] Calcium 7.5 (L) 8.8 - 10.2 mg/dL [facility] Specimen Plasma specimen Performing Organization Address City/[facility]/Zipcode Phone Number [facility] [place] [address] PATHOLOGY AND GENOMIC MEDICINE [address] * CBC with platelet and differential (12/10/2018 3:30 AM CDT) Only the most recent of 4 results within the time period is included. WBC 6.09 4.50 - 11.00 k/uL [facility] RBC 2.76 (L) 4.20 - 5.50 m/uL [facility] HGB 8.8 (L)Comment: Results double 12.0 - 16.0 g/dL [facility] HCT 28.1 (L) 37.0 - 47.0 % [facility] MCV 101.8 (H) 82.0 - 100.0 fL [facility] MCH 31.9 27.0 - 34.0 pg [facility] MCHC 31.3 31.0 - 37.0 g/dL [facility] RDW - SD 64.0 (H) 37.0 - 55.0 fL [facility] MPV 9.6 8.8 - 13.2 fL [facility] Platelet count 221 150 - 400 k/uL [facility] Nucleated RBC 0.00 /100 WBC [facility] Neutrophils 64.1 39.0 - 69.0 % [facility] Lymphocytes 21.2 (L) 25.0 - 45.0 % [facility] Monocytes 12.8 (H) 0.0 - 10.0 % [facility] Eosinophils 1.0 0.0 - 5.0 % [facility] Basophils 0.2 0.0 - 1.0 % [facility] Immature 0.7Comment: "Immature 0.0 - 1.0 % [facility] granulocytes granulocytes" (promyelocytes, [facility] myelocytes, metamyelocytes) HOSPITAL Specimen Blood Performing Organization Address City/State/Zipcode Phone Number [address] [address] PATHOLOGY AND GENOMIC MEDICINE [address] * Smear review (12/09/2018 5:45 AM CDT) Platelet slide Gene adequate [facility] Enlarged Moderate (A) [facility] Specimen Performing Organization Address City/[facility]/Zipcode Phone Number [place] [phone] PATHOLOGY AND GENOMIC MEDICINE [place] [facility] [address] [place] [address] HOSPITAL * XR Chest 1 Vw Portable (12/08/2018 3:02 PM CDT) Specimen Narrative Performed At EXAMINATION:XR CHEST 1 VW PORTABLE [facility] CLINICAL HISTORY:central line placement COMPARISON:None. IMPRESSION: Right IJ catheter terminates in the superior vena cava No evidence of pneumothorax Heart is enlarged Mild pulmonary vascular congestion Atelectasis in the lung bases Age related changes are present throughout the bony structures without evidence of a suspicious focal lesion. [id number] Procedure Note Interface, Radiology Results Incoming - 12/08/2018 3:11 PM CDT EXAMINATION: XR CHEST 1 VW PORTABLE CLINICAL HISTORY: central line placement COMPARISON: None. IMPRESSION: Right IJ catheter terminates in the superior vena cava No evidence of pneumothorax Heart is enlarged Mild pulmonary vascular congestion Atelectasis in the lung bases Age related changes are present throughout the bony structures without evidence of a suspicious focal lesion. [id number] Performing Organization Address City/[facility] Cent[facility]ode Phone Number [facility] [address] [place] [address] * XR Abdomen 1 Vw Portable (12/08/2018 3:01 PM CDT) Specimen Narrative Performed At EXAMINATION:XR ABDOMEN 1 VW PORTABLE [facility] CLINICAL HISTORY:eval stent placement COMPARISON:None. IMPRESSION: A stent is present in the right ureter There is a nonspecific bowel gas pattern Moderate amount retained stool is present throughout the colon [id number] Procedure Note Interface, Radiology Results Incoming - 12/08/2018 3:11 PM CDT EXAMINATION: XR ABDOMEN 1 VW PORTABLE CLINICAL HISTORY: eval stent placement COMPARISON: None. IMPRESSION: A stent is present in the right ureter There is a nonspecific bowel gas pattern Moderate amount retained stool is present throughout the colon [id number] Performing Organization Address City/[facility] Centercode Phone Number [facility] [address] [place] [address] * Surgical pathology request (12/08/2018 2:59 PM CDT) [facility] DEPARTMENT OF PATHOLOGY AND GENOMIC MEDICINE Surgical See link below for PDF Lab [facility] DEPARTMENT pathology Report OF PATHOLOGY report AND GENOMIC MEDICINE Result status This is Final Report for [facility] DEPARTMENT [id number] OF PATHOLOGY AND GENOMIC MEDICINE Specimen Performing Organization Address City/[facility]ercode Phone Number [facility] [place] [address] PATHOLOGY AND [facility] * Urinalysis screen and microscopy, with reflex to culture (11/22/2018 8:55 AM CDT) Only the most recent of 2 results within the time period is included. Specimen site Clean catch [facility] Color, UA Straw [facility] Appearance, UA Clear [facility] Specific 1.012 1.001 - 1.035 [facility] gravity, [facility] pH, UA 6.0 5.0 - 8.5 [facility] Protein, UA Negative Negative [facility] Glucose, UA Negative Negative [facility] Ketones, UA Negative Negative [facility] Bilirubin, UA Negative Negative [facility] Blood, UA Negative Negative [facility] Nitrite, UA Negative Negative [facility] Urobilinogen, <2.0 <2.0 [facility] Leukocyte Negative Negative [facility] esterase, [facility] Epithelial <1 /HPF [facility] cells, [facility] Round <1 0 - 1 /HPF [facility] epithelial [facility] cells, HOSPITAL WBC, UA 1 0 - 4 /HPF [facility] RBC, UA 1 0 - 5 /HPF [facility] Bacteria, UA Few None seen [facility] Yeast, UA None seen [facility] Yeast with None seen [facility] pseudohyphae, [facility] Hyaline casts, 3 /LPF [facility] Specimen Urine Performing Organization Address [facility] Centercode Phone Number [facility] [place] [address] PATHOLOGY AND [facility] MEDICINE [address] * Partial thromboplastin time, activated (11/22/2018 8:55 AM CDT) Only the most recent of 2 results within the time period is included. PTT 27.2 23.0 - 36.0 sec [facility] Comment: [facility] PTT therapeutic range for HOSPITAL unfractionated heparin is 61.0-112.0 seconds which corresponds to Anti-Xa 0.3-0.7 U/ml. Specimen Blood Performing Organization Address City/[facility]/Zipcode Phone Number [facility] [place] [address] PATHOLOGY AND GENOMIC MEDICINE [address] * Prothrombin time with INR (11/22/2018 8:55 AM CDT) Only the most recent of 2 results within the time period is included. Pathologist [facility] Prothrombin 11.9 11.5 - 14.5 sec [facility] INR 0.9 [facility] Comment: [facility] The International Normalized HOSPITAL Ratio (INR) is a therapeutic monitoring tool for patients who are stable on oral anticoagulant therapy. An INR of 2.0-3.0 is suggested for deep vein thrombosis/pulmonary embolism. Specimen Blood Performing Organization Address City/[facility]ercode Phone Number [facility] [place] [address] PATHOLOGY [facility] MEDICINE [address] * CBC hemogram (11/22/2018 8:55 AM CDT) [facility] WBC 6.55 4.50 - 11.00 k/uL [facility] RBC 3.99 (L) 4.20 - 5.50 m/uL [facility] HGB 12.5 12.0 - 16.0 g/dL [facility] HCT 40.7 37.0 - 47.0 % [facility] MCV 102.0 (H) 82.0 - 100.0 fL [facility] MCH 31.3 27.0 - 34.0 pg [facility] MCHC 30.7 (L) 31.0 - 37.0 g/dL [facility] RDW - SD 62.4 (H) 37.0 - 55.0 fL [facility] MPV 9.7 8.8 - 13.2 fL [facility] Platelet count 249 150 - 400 k/uL [facility] Nucleated RBC 0.00 /100 WBC [facility] Specimen Urine Performing Organization Address City/[facility]/Zipcode Phone Number [facility] [place] [address] PATHOLOGY AND GENOMIC MEDICINE [address] * Type and screen (11/22/2018 8:55 AM CDT) ABO grouping A [facility] Rh type POS [facility] Antibody screen NEG [facility] (gel) [facility] Specimen Urine Performing Organization Address City/State/Zipcode Phone Number [facility] DEPARTMENT OF [address] [place] [address] PATHOLOGY AND GENOMIC MEDICINE [address] * Urine culture (11/22/2018 8:55 AM CDT) Only the most recent of 3 results within the time period is included. Pathologist [facility] Urine culture SEE COMMENTComment: [facility] Bacteriuria screen negative. [facility] Specimen Performing Organization Address City/[facility]/Zipcode Phone Number [facility] DEPARTMENT OF [address] [place] [address] PATHOLOGY AND GENOMIC MEDICINE [address] * Comprehensive metabolic panel (11/22/2018 8:55 AM CDT) Only the most recent of 3 results within the time period is included. Sodium 142 135 - 148 mEq/L [facility] Potassium 4.4 3.5 - 5.0 mEq/L [facility] Chloride 100 98 - 112 mEq/L [facility] CO2 29 24 - 31 mEq/L [facility] Anion gap 13@ANIO 7 - 15 mEq/L [facility] BUN 29 (H) 8 - 23 mg/dL [facility] Creatinine 1.44 (H) 0.50 - 0.90 mg/dL [facility] Glucose 124 (H) 65 - 99 mg/dL [facility] Calcium 9.1 8.8 - 10.2 mg/dL [facility] Protein 7.5 6.3 - 8.3 g/dL [facility] Comment: [facility] 4.6-7.0 g/dL 1 week 4.4-7.6 g/dL 7 months-1year 5.1-7.3 g/dL 1-2 years5.6-7 .5 g/dL >3 years6.0-8 .0 g/dL 18-150 6.3-8.3 g/dL Albumin 3.5 3.5 - 5.0 g/dL [facility] A/G ratio 0.9 0.7 - 3.8 [facility] Alkaline 116 (H) 35 - 104 U/L [facility] phosphatase [facility] AST 25 10 - 35 U/L [facility] ALT 17 5 - 50 U/L [facility] Total bilirubin 0.5 0.0 - 1.2 mg/dL [facility] Specimen Plasma specimen Performing Organization Address City/State/Zipcode Phone Number [facility] DEPARTMENT OF [address] [place] [address] PATHOLOGY AND GENOMIC MEDICINE [facility] [address] [place] [address] [facility] * CTA Abdomen W Wo Contrast (11/05/2018 9:34 AM CDT) Specimen Narrative Performed At EXAMINATION:CT ANGIOGRAM ABDOMEN W WO CONTRAST [facility] CLINICAL HISTORY:N13.5 Crossing vessel and stricture of ureter without hydronephrosis, right upj obstruction TECHNIQUE:Multiple CT angiographic images of the abdomen were obtained during intravenous administration of contrast. Multiple computerized reformatted images as well as 3-D volume rendered images were also obtained. Precontrast images of the abdomen were also obtained. CT scans are performed using radiation dose reduction techniques. Technical factors are evaluated and adjusted to ensure appropriate moderation of exposure. Automated dose management technology is applied to adjust radiation exposure while achieving a diagnostic quality image COMPARISON:None. FINDINGS: Abdomen: Scans the lung bases demonstrate some minimal posterior basilar pleural effusion. Scans to the liver spleen and pancreas are unremarkable.There are surgical clips from cholecystectomy. Left kidney demonstrated no definite mass or obstruction. Right kidney has a dilated central collecting system with only minimal caliectasis.There is no evidence of renal mass. CTA: The abdominal aorta demonstrated some minimal atherosclerotic change and moderate tortuosity.There was no evidence of aortic aneurysm, dissection or anomaly.The upper abdominal aorta measured 2.5 cm in diameter. There is a calcified plaque near the origin of the celiac axis but no definite narrowing was identified and the vessel is widely patent.The origin and proximal course of the superior mesenteric artery is well seen and is normal.The inferior mesenteric artery was patent. There is a duplex right renal artery with a small polar branch.There is a calcified plaque near the origin of the right renal artery proper but no critical narrowing.The course of the right renal artery is unremarkable with no suggestion of vascular origin of a UPJ configuration. Left renal artery demonstrated atherosclerotic plaquing proximally but no stenosis.There are no anomalies of the left renal artery. IMPRESSION: [facility]-[id number] Procedure Note Hm Interface, Radiology Results Incoming - 11/05/2018 10:38 AM CDT EXAMINATION: CT ANGIOGRAM ABDOMEN W WO CONTRAST CLINICAL HISTORY: N13.5 Crossing vessel and stricture of ureter without hydronephrosis, right upj obstruction TECHNIQUE: Multiple CT angiographic images of the abdomen were obtained during intravenous administration of contrast. Multiple computerized reformatted images as well as 3-D volume rendered images were also obtained. Precontrast images of the abdomen were also obtained. CT scans are performed using radiation dose reduction techniques. Technical factors are evaluated and adjusted to ensure appropriate moderation of exposure. Automated dose management technology is applied to adjust radiation exposure while achieving a diagnostic quality image COMPARISON: None. FINDINGS: Abdomen: Scans the lung bases demonstrate some minimal posterior basilar pleural effusion. Scans to the liver spleen and pancreas are unremarkable. There are surgical clips from cholecystectomy. Left kidney demonstrated no definite mass or obstruction. Right kidney has a dilated central collecting system with only minimal caliectasis. There is no evidence of renal mass. CTA: The abdominal aorta demonstrated some minimal atherosclerotic change and moderate tortuosity. There was no evidence of aortic aneurysm, dissection or anomaly. The upper abdominal aorta measured 2.5 cm in diameter. There is a calcified plaque near the origin of the celiac axis but no definite narrowing was identified and the vessel is widely patent. The origin and proximal course of the superior mesenteric artery is well seen and is normal. The inferior mesenteric artery was patent. There is a duplex right renal artery with a small polar branch. There is a calcified plaque near the origin of the right renal artery proper but no critical narrowing. The course of the right renal artery is unremarkable with no suggestion of vascular origin of a UPJ configuration. Left renal artery demonstrated atherosclerotic plaquing proximally but no stenosis. There are no anomalies of the left renal artery. IMPRESSION: [facility]-[id number] Performing Organization Address City/[facility]/Zipcode Phone Number [facility] [address] [place] [phone] * POC creatinine (11/05/2018 8:49 AM CDT) POC creatinine 1.4 (H) 0.5 - 0.9 mg/dl [facility] Comment: [facility] Meter ID: [id number] [facility] Pulling Machine Operator: Tye Archer Specimen Blood Performing Organization Address [facility]/Zipcode Phone Number [facility] DEPARTMENT OF [address] [place] [address] PATHOLOGY AND GENOMIC MEDICINE [place] [facility] [address] [place] [address] * Urine Culture, Comprehensive (11/01/2018 9:29 AM CDT) Pathologist [facility] Urine culture Escherichia coli [facility] 3,000 Colonies/mL (A) Comment: Cefazolin <=4 ug/mL Cefazolin with an JUDY <=16 predicts susceptibility to the oral agents cefaclor, cefdinir, cefpodoxime, cefprozil, cefuroxime, cephalexin, and loracarbef when used for therapy of uncomplicated urinary tract infections due to E. coli, Klebsiella pneumoniae, and Proteus mirabilis. Urine culture Mixed urogenital yazan [facility] 10,000-25,000 colony forming units per mL Specimen Narrative Performed At Performed at:[address] [place] [address] [id number] Network Design Architect: Italo Joyner MD, Phone:[phone] Antibiotic Method Susceptibility Organism Amoxicillin/Clavulanate S ug/mL: Susceptible Escherichia coli Ampicillin S ug/mL: Susceptible Escherichia coli Cefepime S ug/mL: Susceptible Escherichia coli Ceftriaxone S ug/mL: Susceptible Escherichia coli Cefuroxime S ug/mL: Susceptible Escherichia coli Ciprofloxacin R ug/mL: Resistant Escherichia coli Ertapenem S ug/mL: Susceptible Escherichia coli Gentamicin S ug/mL: Susceptible Escherichia coli Imipenem S ug/mL: Susceptible Escherichia coli Levofloxacin R ug/mL: Resistant Escherichia coli Meropenem S ug/mL: Susceptible Escherichia coli Nitrofurantoin S ug/mL: Susceptible Escherichia coli Piperacillin/Tazobactam S ug/mL: Susceptible Escherichia coli Tetracycline S ug/mL: Susceptible Escherichia coli Tobramycin S ug/mL: Susceptible Escherichia coli Trimethoprim/Sulfamethoxazole S ug/mL: Susceptible Escherichia coli Comment: Performed at:[address] [place], [place] [id number] Network Design Architect: Italo Joyner MD, Phone:[phone] Performing Organization Address City/State/Zipcode Phone Number [facility] * URINALYSIS, COMPLETE, WITH REFLEX TO CULTURE (11/01/2018 9:29 AM CDT) Specific 1.020 1.005 - 1.030 [facility] gravity, urine pH, urine 5.5 5.0 - 7.5 [facility] Color, UA Yellow Yellow [facility] Appearance Clear Clear [facility] WBC esterase, 1+ (A) Negative [facility] urine Protein, UA Negative Negative/Trace [facility] Glucose, urine Negative Negative [facility] Ketones, UA Negative Negative [facility] Occult blood, Negative Negative [facility] urine Bilirubin, UA Negative Negative [facility] Urobilinogen, 0.2 0.2 - 1.0 mg/dL [facility] UA Nitrite, UA Negative Negative [facility] Microscopic See below:Comment: Microscopic [facility] examination was indicated and was performed. Urinalysis CommentComment: This specimen [facility] reflex has reflexed to a Urine Culture. Specimen Narrative Performed At Performed at:[address] [place], [place] [id number] Network Design Architect: Italo Joyner MD, Phone:[phone] Performing Organization Address [facility] Phone Number [facility] * Microscopic Examination (11/01/2018 9:29 AM CDT) Only the most recent of 2 results within the time period is included. WBC, UA 6-10 (A) 0 - 5 /hpf [facility] RBC, UA 0-2 0 - 2 /hpf [facility] Epithelial 0-10 0 - 10 /hpf [facility] cells (non renal) Casts Present (A) None seen /lpf [facility] Cast type Hyaline casts N/A [facility] Mucus, UA Present Not Estab. [facility] Bacteria, UA None seen None seen/Few [facility] Specimen Narrative Performed At Performed at:[address] [place], [place] [id number] Network Design Architect: Italo Joyner MD, Phone:[phone] Performing Organization Address [facility] Phone Number [facility] * POC urinalysis dipstick (11/01/2018 8:27 AM CDT) Only the most recent of 3 results within the time period is included. Color urine, Yellow POC Clarity urine, Clear POC Glucose urine, Negative Negative POC Bilirubin Negative Negative urine, POC Ketones urine, Negative Negative [facility] Specific 1.025 1.005 - 1.030 gravity urine, POC Blood urine, Negative Negative POC pH urine, POC 5.0 5.0, 5.5, 6.0, 6.5, 7.0, 7.5, 8.0, 8.5 Protein urine, Negative Negative [facility] Urobilinogen <2.0 <2.0 urine, POC Nitrite urine, Negative Negative [facility] Leukocyte Trace (A) Negative esterase urine, POC Specimen Urine * Gram stain (10/29/2018 3:55 AM CDT) Gram stain No WBC's [facility] result Few Gram positive rods [facility] Comment: HOSPITAL Specimen Information Specimen Source: Urine Specimen Site: Clean catch Specimen Urine Performing Organization Address City/State/Zipcode Phone Number [facility] DEPARTMENT OF [address] [place] [address] PATHOLOGY AND GENOMIC MEDICINE [place] [facility] [address] [place] [address] HOSPITAL * CT Abdomen Pelvis Wo Contrast (10/29/2018 2:59 AM CDT) Specimen Narrative Performed At CT ABDOMEN PELVIS WO CONTRAST [facility] CLINICAL INDICATION:Flank painrecurrent stone disease suspected, stent blockage TECHNIQUE:Multidetector CT of the abdomen and pelvis was performed without intravenous contrast with multiplanar reconstructions. CT imaging was performed with iterative reconstruction technique and/or automated exposure control to reduce radiation dose. COMPARISON:01/25/2018. FINDINGS: Please note, the lack of intravenous and oral contrast limits evaluation of the abdominal and pelvic viscera. LOWER THORAX:Aside from mild bibasilar atelectasis, the visualized lungs are clear. LIVER:Normal. BILIARY:There are surgical changes related to cholecystectomy. There is no abnormal biliary ductal dilation. SPLEEN:Normal. PANCREAS:The pancreas is atrophic. No focal pancreatic lesion is identified. ADRENALS:Normal. KIDNEYS:There is an appropriately positioned right-sided ureteral stent. There is right pelviectasis and mild right hydronephrosis. There is no left hydronephrosis. There is a punctate focus of gas within one of the right renal calyces, likely secondary to the recent stent placement. No suspicious renal mass. GI:Large and small bowel are normal in caliber.There are no inflammatory changes.There is colonic diverticulosis. VASCULAR:Unremarkable LYMPH NODES:No enlarged lymph nodes in the abdomen or pelvis. PELVIS:The urinary bladder is distended. There are surgical changes related to hysterectomy. BONES:There are no acute osseous abnormalities. OTHER:No ascites or pneumoperitoneum. There is an electronic device in the left lower back soft tissues with its lead located in the thoracic spinal canal. IMPRESSION: 1. Right-sided ureteral stent with right pelviectasis and mild right-sided hydronephrosis. No obstructing urinary tract lesion is identified. 2. Distended urinary bladder. If the patient cannot void, consider catheterization. [facility]-[id number] Procedure Note Interface, Radiology Results Incoming - 10/29/2018 3:[address] ABDOMEN PELVIS WO CONTRAST CLINICAL INDICATION: Flank pain recurrent stone disease suspected, stent blockage TECHNIQUE: Multidetector CT of the abdomen and pelvis was performed without intravenous contrast with multiplanar reconstructions. CT imaging was performed with iterative reconstruction technique and/or automated exposure control to reduce radiation dose. COMPARISON: 01/25/2018. FINDINGS: Please note, the lack of intravenous and oral contrast limits evaluation of the abdominal and pelvic viscera. LOWER THORAX: Aside from mild bibasilar atelectasis, the visualized lungs are clear. LIVER: Normal. BILIARY: There are surgical changes related to cholecystectomy. There is no abnormal biliary ductal dilation. SPLEEN: Normal. PANCREAS: The pancreas is atrophic. No focal pancreatic lesion is identified. ADRENALS: Normal. KIDNEYS: There is an appropriately positioned right-sided ureteral stent. There is right pelviectasis and mild right hydronephrosis. There is no left hydronephrosis. There is a punctate focus of gas within one of the right renal calyces, likely secondary to the recent stent placement. No suspicious renal mass. GI: Large and small bowel are normal in caliber. There are no inflammatory changes. There is colonic diverticulosis. VASCULAR: Unremarkable LYMPH NODES: No enlarged lymph nodes in the abdomen or pelvis. PELVIS: The urinary bladder is distended. There are surgical changes related to hysterectomy. BONES: There are no acute osseous abnormalities. OTHER: No ascites or pneumoperitoneum. There is an electronic device in the left lower back soft tissues with its lead located in the thoracic spinal canal. IMPRESSION: 1. Right-sided ureteral stent with right pelviectasis and mild right-sided hydronephrosis. No obstructing urinary tract lesion is identified. 2. Distended urinary bladder. If the patient cannot void, consider catheterization. [facility]-[id number] Performing Organization Address City/State/Zipcode Phone Number [facility] [address] [place] [address] * Lipase level (10/29/2018 1:20 AM CDT) Lipase 21 13 - 60 U/L [facility] Specimen Plasma specimen Performing Organization Address City/State/Zipcode Phone Number [facility] DEPARTMENT OF [address] [place] [address] PATHOLOGY AND GENOMIC MEDICINE [address] * Amylase level (10/29/2018 1:20 AM CDT) Amylase 37 28 - 100 U/L [facility] Specimen Plasma specimen Performing Organization Address City/State/Zipcode Phone Number [facility] DEPARTMENT OF [address] [place] [address] PATHOLOGY AND GENOMIC MEDICINE [address] * [place] < 1 Hour (10/27/2018 1:55 PM CDT) Specimen Narrative Performed At IMPRESSION:C-arm Fluoroscopy under 1 hour was provided in the OR for the [facility] referring physician.A radiologist was not present during the procedure. Refer to the Operative report issued by the performing provider for procedure details. Procedure Note Interface, Radiology Results Incoming - 10/28/2018 10:43 AM CDT IMPRESSION: C-arm Fluoroscopy under 1 hour was provided in the OR for the referring physician. A radiologist was not present during the procedure. Refer to the Operative report issued by the performing provider for procedure details. Performing Organization Address City/[facility] Phone Number [facility] [address] [place] [address] * XR Chest 2 Vw (10/04/2018 12:52 PM CHEMICAL PATHOLOGIST) Specimen Narrative Performed At EXAMINATION:[facility]: 68 years Female Z01.818 Encounter for other preprocedural examination, preop [facility] COMPARISON: 01/26/2002 IMPRESSION: 1.There are some surgical clips over the lower neck. Left chest port terminates over the distal SVC. Epidural stimulator leads. Monitoring device visualized in the anterior soft tissues on the lateral 2.Heart size and central vasculature normal. 3.Lungs are clear. 4.Degenerative changes in the spine. Likely old left rib fracture. [facility]-[id number] Procedure Note Interface, Radiology Results Incoming - 10/04/2018 1:03 PM CHEMICAL PATHOLOGIST EXAMINATION: XR CHEST 2 VW CLINICAL HISTORY: 68 years Female Z01.818 Encounter for other preprocedural examination, preop [facility]PC COMPARISON: 01/26/2002 IMPRESSION: 1. There are some surgical clips over the lower neck. Left chest port terminates over the distal SVC. Epidural stimulator leads. Monitoring device visualized in the anterior soft tissues on the lateral 2. Heart size and central vasculature normal. 3. Lungs are clear. 4. Degenerative changes in the spine. Likely old left rib fracture. [facility]-[id number] Performing Organization Address [facility]/Zipcode Phone Number [facility] [address] [place] [address] * ECG Pre/Post Op (10/04/2018 11:36 AM CHEMICAL PATHOLOGIST) Pathologist [facility] Ventricular 49 [facility] MUSE rate Atrial rate 49 [facility] MUSE WA interval 130 [facility]USE QRSD interval 90 [facility] MUSE QT interval 490 [facility] MUSE QTC interval 442 [facility] MUSE P axis 1 21 [facility] MUSE QRS axis 1 -1 [facility] MUSE T wave axis 15 [facility] MUSE EKG impression Marked sinus [facility] MUSE bradycardia-Abnormal ECG-No previous ECGs available- Specimen Narrative Performed At Performing Organization Address [facility] Center[facility]az Phone Number [facility] MUSE [address] [place] [address] * Hemoglobin A1c (10/04/2018 11:29 AM CHEMICAL PATHOLOGIST) Pathologist [facility] Hemoglobin A1C 6.8 (H) 4.0 - 5.6 % [place] Comment: [facility] HbA1c cutoffs for diagnosing HOSPITAL diabetes: 4.0% - 5.6%=normal 5.7% - 6.4%=increased risk for diabetes (prediabetes) >=6.5%=diabetes Goals for glycemic control (ADA 2016) < 7.0%Target for non adults with diabetes. More or less stringent targets may be appropriate for individual patients. <7.5% Target for Children and adolescents with type 1 diabetes. Specimen Blood Performing Organization Address [facility]/Zipcode Phone Number [facility] DEPARTMENT [address] [address] PATHOLOGY AND GENOMIC MEDICINE [place] [facility] [address] [place] [address] HOSPITAL * Urinalysis, automated with microscopy (10/04/2018 10:43 AM CHEMICAL PATHOLOGIST) Pathologist [facility] Specific 1.010 1.005 - 1.030 [facility] gravity, urine pH, urine 6.0 5.0 - 7.5 [facility] Color, UA Yellow Yellow [facility] Appearance Clear Clear [facility] WBC esterase, Trace (A) Negative [facility] urine Protein, UA Negative Negative/Trace [facility] Glucose, urine Negative Negative [facility] Ketones, UA Negative Negative [facility] Occult blood, Negative Negative [facility] urine Bilirubin, UA Negative Negative [facility] Urobilinogen, 0.2 0.2 - 1.0 mg/dL [facility] UA Nitrite, UA Negative Negative [facility] Microscopic See below:Comment: Microscopic [facility] examination was indicated and was performed. Specimen Narrative Performed At Performed at: - [facility] [address] [place], [id number] Network Design Architect: Italo Joyner MD, Phone:[phone] Performing Organization Address City/State/Zipcode Phone Number [facility] * NM Renal Scan Wflow Funct Sgl Int W/Mag 3 (09/27/2018 9:43 AM CHEMICAL PATHOLOGIST) Specimen Narrative Performed At PROCEDURE:NM RENAL SCAN WFLOW FUNCT SGL INT W MAG 3 [facility] INDICATION:Hydronephrosis. TECHNIQUE: The patient was injected with 10 mCi of Tc-99m MAG-3, IV. Dynamic images of the abdomen were acquired for 40 minutes. At 20 minutes, a standard dose of IV lasix was administered. FINDINGS:Perfusion to both kidneys appears delayed.Cortical transit time through both kidneys is between 4 and 5 minutes, which is top normal.Urine flows freely from the left kidney into the bladder.There is stasis in the right kidney at 20 minutes, with a reasonable response to Lasix.The half-time of emptying of the right kidney is approximately 20 minutes. Normal washout is less than 10 minutes. High grade obstruction is suggested if greater than 20 minutes. Between 10 and 20 minutes is indeterminate. Split function:Left kidney 58%, right kidney 42%. IMPRESSION: 1.No evidence for high-grade obstruction of either kidney.The left kidney drains normally before Lasix.Stasis in the right renal pelvis clears relatively well, given borderline reduced renal function. [facility]-[id number] Procedure Note Interface, Radiology Results Incoming - 09/27/2018 10:20 AM CHEMICAL PATHOLOGIST PROCEDURE: NM RENAL SCAN WFLOW FUNCT SGL INT W MAG 3 INDICATION: Hydronephrosis. TECHNIQUE: The patient was injected with 10 mCi of Tc-99m MAG-3, IV. Dynamic images of the abdomen were acquired for 40 minutes. At 20 minutes, a standard dose of IV lasix was administered. FINDINGS: Perfusion to both kidneys appears delayed. Cortical transit time through both kidneys is between 4 and 5 minutes, which is top normal. Urine flows freely from the left kidney into the bladder. There is stasis in the right kidney at 20 minutes, with a reasonable response to Lasix. The half-time of emptying of the right kidney is approximately 20 minutes. Normal washout is less than 10 minutes. High grade obstruction is suggested if greater than 20 minutes. Between 10 and 20 minutes is indeterminate. Split function: Left kidney 58%, right kidney 42%. IMPRESSION: 1. No evidence for high-grade obstruction of either kidney. The left kidney drains normally before Lasix. Stasis in the right renal pelvis clears relatively well, given borderline reduced renal function. [facility]-[id number] Performing Organization Address City/State/Zipcode Phone Number [facility] [address] [place] [address] * US Renal (09/17/2018 4:50 PM CHEMICAL PATHOLOGIST) Specimen Narrative Performed At EXAM: US RENAL [facility] CLINICAL DATA:N13.39 Other hydronephrosis, hydronephrosis COMPARISON: NONE. FINDINGS: 1.Right kidney is 11.2 x 5.9 x 5.8 cm. Renal cortex is 1.6 cm. Mild pelviectasis without significant hydronephrosis. No focal mass identified. 2.Left kidney is 9.9 x 5.3 x 4.8 cm. Renal cortex is 1.6 cm. No mass or hydronephrosis. 3.Bladder is under distended. IMPRESSION: 1. Mild right-sided pelviectasis without significant hydronephrosis. [facility]-[id number] Procedure Note Interface, Radiology Results Incoming - 09/17/2018 5:31 PM CHEMICAL PATHOLOGIST EXAM: US RENAL CLINICAL DATA: N13.39 Other hydronephrosis, hydronephrosis COMPARISON: NONE. FINDINGS: 1. Right kidney is 11.2 x 5.9 x 5.8 cm. Renal cortex is 1.6 cm. Mild pelviectasis without significant hydronephrosis. No focal mass identified. 2. Left kidney is 9.9 x 5.3 x 4.8 cm. Renal cortex is 1.6 cm. No mass or hydronephrosis. 3. Bladder is under distended. IMPRESSION: 1. Mild right-sided pelviectasis without significant hydronephrosis. 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
--- OUTSIDE RECORDS SUMMARY | 2019-04-23 01:22 | XMS REPORT | Continuity of Care Document ---
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 Name Role Phone [employer] Information [employer] Unavailable Unavailable Problems Problem Status Onset Date Classification Date Reported Comments Source INFECTION OF INTRATHECAL PUMP Active 02/24/2017 [facility] [address] VILLALOBOS-INFECTION ON BACK Active 02/24/2017 [facility] G89.4 - CHRONIC PAIN SYNDROME Active 02/20/2017 [facility] [place] CHRONIC PAIN SYNDROME Active 01/26/2017 [facility] UNK Active 11/14/2016 [facility] VERENICE/CPAP/LECHIN TO READ Active 01/27/2003 [facility] Acquired hypothyroidism (disorder) Active Problem 01/16/2018 [facility] Anxiety (finding) Resolved Problem 01/16/2018 [facility] Diabetes mellitus (disorder) Active Problem 01/16/2018 [facility] Dislocation of temporomandibular joint (disorder) Active Problem 01/16/2018 [facility] Fibromyalgia (disorder) Active Problem 01/16/2018 [facility] Gastroesophageal reflux disease (disorder) Resolved Problem 01/16/2018 [facility] Gout (disorder) Resolved Problem 01/16/2018 [facility] History of malignant neoplasm of thyroid (situation) Active Problem 01/16/2018 [facility] Hypertensive disorder, systemic arterial (disorder) Active Problem 01/16/2018 [facility] Depressive disorder (disorder) Resolved Problem 01/16/2018 [facility] Osteoarthritis (disorder) Active Problem 01/16/2018 [facility] Serum creatinine raised (finding) Active Problem 01/16/2018 [facility] CHRONIC PAIN SYNDROME Active [facility] RADICULOPATHY, LUMBAR REGION Active [facility] POSTLAMINECTOMY SYNDROME, 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 [facility] I/I REACT D/T OTHER NRV SYS DEVICE, IMPL Active [facility] Medications Medication Details Route Status Patient Instructions Ordering Provider Order Date Source ceFAZolin 2 g/100 mL-NaCl 0.9% intravenous solution 2 ql=194 mL, IVPB, ABXQ8H, 0 Refill(s) Active 03/03/2017 [facility] Acetaminophen 300 MG / Codeine Phosphate 30 MG Oral Tablet [Tylenol with Codeine #3] 1 tab, PO, Q6H, PRN Pain Score 4-6, X 7 day, # 28 tab, 0 Refill(s) Active 03/03/2017 [facility] Benadryl 25 mg, 1 cap, Route: PO, Drug form: CAP, Q4H, Dosing Weight 118.182, kg, Priority: NOW, Start date: 03/02/17 19:50:00 CDT, Duration: 3 doses or times, Stop date: 03/03/17 0:00:00 CDTNotes: (Same as: Benadryl) No Longer Active 03/03/2017 [facility] Ancef 2 gm, 100 mL, Route: IVPB, Drug form: INJ, ABXQ8H, Dosing Weight 118.182, kg, Priority: STAT, Start date: 03/02/17 15:26:00 CDT, Duration: 30 day, Stop date: 04/01/17 7:26:00 CDT, ABX Indication: PROGRAM COORDINATOR In fection/Epidural AbcessNotes: Same as: Ancef No Longer Active 03/02/2017 [facility] Furosemide 20 MG Oral Tablet [Lasix] 20 mg, 1 tab, Route: PO, Drug form: TAB, Daily, Dosing Weight 118.182, kg, Start date: 03/01/17 9:00:00 CDT, Duration: 30 day, Stop date: 03/30/17 9:00:00 CDTNotes: (Same as: Lasix) May cause GI upset. Give with food or milk. No Longer Active 03/01/2017 [facility] vancomycin + sodium chloride 0.9% 500 mL INJ (for IV set) 500 mL 1,750 mg, Route: IVPB, Q24H, Start date: 02/28/17 19:00:00 CDT, Duration: 30 day, Stop date: 03/29/17 19:00:00 CDT, ABX Indication: BacteremiaNotes: TIME CRITICAL MEDICATION (Same As: Vancocin) Infusion rate 2001 mg: infuse over 2.5 hours MEDICATION WASTE Product Size: 1000 mg Product Wasted: ___ mg No Longer Active 03/01/2017 [facility] vancomycin 1.5 gm, 250 mL, Route: IVPB, Drug form: INJ, [id number], Start date: 02/28/17 17:00:00 CDT, Duration: 30 day, Stop date: 03/29/17 17:00:00 CDT, ABX Indication: BacteremiaNotes: TIME CRITICAL MEDICATION Same as: Vancocin-NS (premixed) Infusion rate 2001 mg: infuse over 2.5 hours Inactive 02/28/2017 [facility] tizanidine 4 mg, 1 tab, Route: PO, Drug form: TAB, Q8H, Dosing Weight 118.182, kg, PRN as needed for muscle spasm, Start date: 02/28/17 16:27:00 CDT, Duration: 30 day, Stop date: 03/30/17 16:26:00 CDTNotes: (Same As: Zanaflex) No Longer Active 02/28/2017 [facility] Guaifenesin 200 mg, 1 tab, Route: PO, Drug form: TAB, QID, Dosing Weight 118.182, kg, Start date: 02/28/17 13:00:00 CDT, Duration: 30 day, Stop date: 03/30/17 9:00:00 CDTNotes: (Same as: Organidin NR) No Longer Active 02/28/2017 [facility] magnesium citrate 58.2 MG/ML Oral Solution 150 ml, Route: PO, Drug Form: LIQ, Dosing Weight 118.182, kg, ONCE, Start date: 02/28/17 11:55:00 CDT, Stop date: 02/28/17 11:55:00 CDTNotes: (Same as: Citrate of Magnesia) Concentration: 1.745 gm / 30 mL Inactive 02/28/2017 [facility] Spironolactone 25 mg, 1 tab, Route: PO, Drug form: TAB, Daily, Dosing Weight 118.182, kg, Start date: 02/28/17 9:00:00 CDT, Duration: 30 day, Stop date: 03/29/17 9:00:00 CDTNotes: (Same As: Aldactone) No Longer Active 02/28/2017 [facility] Thyroxine 150 microgram, 1 tab, Route: PO, Drug form: TAB, [id number], Dosing Weight 118.182, kg, Start date: 02/28/17 6:30:00 CDT, Duration: 30 day, Stop date: 03/29/17 6:30:00 CDTNotes: Take 1 hour before or 2 hours after meal; Enteral feeds may interefere with the absorption of this medication. (Same as: Levothroid) No Longer Active 02/28/2017 [facility] alteplase 2 mg injection 1 mg, 1 mL, Route: INJ, Drug form: INJ, ONCE, Dosing Weight 118.182, kg, Start date: 02/27/17 20:43:00 CDT, Stop date: 02/27/17 20:43:00 CDT, Occluded CVAD Notes: "Syringe for catheter clearance or interventional radiology use. Reconstitute each vial of Cathflo Activase with 2.2 ml Sterile Water resulting in a 1 mg/ml solution. (Same as: Activase) MEDICATION WASTE Product Size: 2 mg Product Wasted: ___ mg Inactive 02/28/2017 [facility] Morphine 6 mg, 1.5 mL, Route: IVP, Drug form: INJ, Q4H, Dosing Weight 118.182, kg, PRN Pain Score 7-10, Start date: 02/27/17 14:44:00 CDT, Duration: 30 day, Stop date: 03/29/17 14:43:00 CDTNotes: (Same as:MORPhine Sulfate) No Longer Active 02/27/2017 [facility] Docusate Sodium 100 MG Oral Capsule [Colace] 100 mg, 1 cap, Route: PO, Drug form: CAP, BID, Dosing Weight 118.182, kg, Start date: 02/26/17 17:00:00 CDT, Duration: 30 day, Stop date: 03/28/17 9:00:00 CDTNotes: (Same as: Colace) (Do Not Crush) No Longer Active 02/26/2017 [facility] vancomycin + sodium chloride 0.9% 500 mL INJ (for IV set) 500 mL 2,000 mg, Route: IVPB, Q48H, Start date: 02/26/17 17:00:00 CDT, Duration: 30 day, Stop date: 03/26/17 17:00:00 CDT, ABX Indication: BacteremiaNotes: TIME CRITICAL MEDICATION (Same As: Vancocin) Infusion rate 2001 mg: infuse over 2.5 hours MEDICATION WASTE Product Size: 1000 mg Product Wasted: ___ mg No Longer Active 02/26/2017 [facility] Famotidine 20 MG Oral Tablet [Pepcid] 20 mg, 1 tab, Route: PO, Drug form: TAB, Q24H, Dosing Weight 118.182, kg, Start date: 02/26/17 17:00:00 CDT, Duration: 30 day, Stop date: 03/27/17 17:00:00 CDTNotes: (Same as: Pepcid) No Longer Active 02/26/2017 [facility] Acetaminophen 300 MG / Codeine Phosphate 30 MG Oral Tablet [Tylenol with Codeine #3] 2 tab, Route: PO, Drug Form: TAB, Dosing Weight 118.182, kg, Q6H, PRN Pain Score 4-6, Start date: 02/26/17 16:50:00 CDT, Duration: 30 day, Stop date: 03/28/17 16:49:00 CDTNotes: Do not exceed 4gm/day of acetaminophen. (Same as: Tylenol with Codeine # 3) No Longer Active 02/26/2017 [facility] acetaminophen-codeine 300 mg-30 mg oral tablet 1 tab, Route: PO, Drug Form: TAB, Q6H, PRN Pain Score 4-6, Start date: 02/26/17 16:26:00 CDT, Duration: 30 day, Stop date: 03/28/17 16:25:00 CDTNotes: Do not exceed 4gm/day of acetaminophen. (Same as: Tylenol with Codeine # 3) Inactive 02/26/2017 [facility] Acetaminophen 300 MG / Codeine Phosphate 60 MG Oral Tablet [Tylenol with Codeine #4] 1 tab, Route: PO, Drug Form: TAB, Dosing Weight 118.182, kg, Q6H, PRN Pain Score 4-6, Start date: 02/26/17 16:16:00 CDT, Duration: 30 day, Stop date: 03/28/17 16:15:00 CDT Inactive 02/26/2017 [facility] neostigmine (ANES) Route: IV, Drug form: INJ, ONCE, Stop date: 02/26/17 14:23:00 CDT Inactive 02/26/2017 [facility] glycopyrrolate (ANES) Route: IV, Drug form: INJ, ONCE, Stop date: 02/26/17 14:23:00 CDT Inactive 02/26/2017 [facility] 1/2NS + KCL 20mEq/L 1000ml (Premix) 1,000 mL 1,000 mL, Rate: 75 ml/hr, Infuse over: 13.3 hr, Route: IV, Dosing Weight 118.182 kg, Total Volume: 1,000, Start date: 02/26/17 14:08:00 CDT, Duration: 30 day, Stop date: 03/28/17 14:07:00 CDTNotes: PREMIX IV - Do Not Alter WASTE: F/P - Sink; E - Municipal Trash Bin No Longer Active 02/26/2017 [facility] Zofran 4 mg, 1 tab, Route: PO, Drug form: TAB, Q8H, Dosing Weight 118.182, kg, PRN Nausea, Start date: 02/26/17 14:08:00 CDT, Duration: 30 day, Stop date: 03/28/17 14:07:00 CDTNotes: (Same as: Zofran) No Longer Active 02/26/2017 [facility] Promethazine 6.25 mg, Route: IVPB, ONCE, Dosing Weight 118.182, kg, PRN Nausea & Vomiting, Start date: 02/26/17 13:46:00 CDT Inactive 02/26/2017 [facility] Labetalol 10 mg, Route: IVP, Q5Min, Dosing Weight 118.182, kg, PRN Elevated BP, Start date: 02/26/17 13:46:00 CDT, Duration: 5 doses or times, Stop date: Limited # of times Inactive 02/26/2017 [facility] Dexamethasone 4 mg, Route: IVP, ONCE, Dosing Weight 118.182, kg, PRN Nausea & Vomiting, Start date: 02/26/17 13:46:00 CDT Inactive 02/26/2017 [facility] Meperidine 12.5 mg, Route: IVP, Q30Min, Dosing Weight 118.182, kg, PRN Other -See Comment, For shivering, Start date: 02/26/17 13:46:00 CDT, Duration: 2 doses or times, Stop date: Limited # of times Inactive 02/26/2017 [facility] Ondansetron 4 mg, Route: IVP, ONCE, Dosing Weight 118.182, kg, PRN Nausea & Vomiting, Start date: 02/26/17 13:46:00 CDT Inactive 02/26/2017 [facility] Naloxone 0.4 mg, Route: IVP, Q2MIN, Dosing Weight 118.182, kg, PRN Narcotic Reversal, Start date: 02/26/17 13:46:00 CDT, Duration: 8 doses or times, Stop date: Limited # of times Inactive 02/26/2017 [facility] Flumazenil 0.2 mg, Route: IVP, PRN, Dosing Weight 118.182, kg, PRN Benzodiazepine Reversal, Initial dose, Start date: 02/26/17 13:46:00 CDT, Duration: 30 day, Stop date: 03/28/17 13:45:00 CDT Inactive 02/26/2017 [facility] Morphine 4 mg, Route: IVP, Q5Min, Dosing Weight 118.182, kg, PRN Pain Score 7-10, Start date: 02/26/17 13:46:00 CDT, Duration: 3 doses or times, Stop date: Limited # of times Inactive 02/26/2017 [facility] Acetaminophen 1,000 mg, Route: IVPB, Drug form: INJ, ONCE, Dosing Weight 118.182, kg, PRN Pain Score 1-3, Start date: 02/26/17 13:46:00 CDT, Duration: 1 doses or times, Stop date: Limited # of times Inactive 02/26/2017 [facility] midazolam (ANES) Route: IV, Drug form: SOLN, ONCE, Stop date: 02/26/17 13:07:00 CDT Inactive 02/26/2017 [facility] ePHEDrine (ANES) Route: IV, Drug form: INJ, ONCE, Stop date: 02/26/17 12:42:00 CDT Inactive 02/26/2017 [facility] rocuronium (ANES) Route: IV, Drug form: INJ, ONCE, Stop date: 02/26/17 12:27:00 CDT Inactive 02/26/2017 [facility] fentaNYL (ANES) Route: IV, Drug form: INJ, ONCE, Stop date: 02/26/17 12:22:00 CDT Inactive 02/26/2017 [facility] lidocaine (ANES) Route: IV, Drug form: INJ, ONCE, Stop date: 02/26/17 12:22:00 CDT Inactive 02/26/2017 [facility] propofol (ANES) Route: IV, Drug form: INJ, ONCE, Stop date: 02/26/17 12:22:00 CDT Inactive 02/26/2017 [facility] LR 1000 mL INJ (ANES) Route: IV, Total Volume: 1,000, Start date: 02/26/17 11:21:00 CDT, Stop date: 02/26/17 12:21:00 CDT Inactive 02/26/2017 [facility] metoprolol extended release 25 mg, 1 tab, Route: PO, Drug form: ERTAB, Daily, Start date: 02/26/17 9:00:00 CDT, Duration: 30 day, Stop date: 03/27/17 9:00:00 CDTNotes: (Same as: Toprol XL) Do Not Crush No Longer Active 02/26/2017 [facility] Allopurinol 300 mg, 1 tab, Route: PO, Drug form: TAB, Daily, Dosing Weight 118.182, kg, Start date: 02/26/17 9:00:00 CDT, Duration: 30 day, Stop date: 03/27/17 9:00:00 CDTNotes: (Same as: Zyloprim) No Longer Active 02/26/2017 [facility] CHROMIUM PICOLINATE 2,000 mg, Route: PO, Daily, Dosing Weight 118.182, kg, Start date: 02/26/17 9:00:00 CDT, Duration: 30 day, Stop date: 03/27/17 9:00:00 CDT No Longer Active 02/26/2017 [facility] Vitamin D3 10,000 IntlUnit, 10 tab, Route: PO, Drug form: TAB, Daily, Dosing Weight 118.182, kg, Start date: 02/26/17 9:00:00 CDT, Duration: 30 day, Stop date: 03/27/17 9:00:00 CDTNotes: Same as : Vitamin D3 No Longer Active 02/26/2017 [facility] Phenergan 12.5 mg, 1 tab, Route: PO, Drug form: TAB, ONCE, Dosing Weight 118.182, kg, PRN Nausea & Vomiting, Priority: STAT, Start date: 02/25/17 21:59:00 CDTNotes: (Same as: Phenergan) Inactive 02/26/2017 [facility] temazepam 15 mg oral capsule 15 mg=1 cap, PO, Bedtime, PRN Sleep, # 14 tab, 0 Refill(s) Active 02/26/2017 [facility] metoprolol tartrate 50 mg, 1 tab, Route: PO, Drug form: TAB, Q12H, Dosing Weight 118.182, kg, Start date: 02/25/17 21:00:00 CDT, Duration: 30 day, Stop date: 03/27/17 9:00:00 CDTNotes: (Same as: Lopressor) No Longer Active 02/26/2017 [facility] Levemir FlexPen 62 unit, 0.62 mL, Route: SUB-Q, Drug form: INJ, Bedtime, Start date: 02/25/17 21:00:00 CDT, Duration: 30 day, Stop date: 03/26/17 21:00:00 CDTNotes: Same as Levemir Do not hold insulin without contac ting prescriber WASTE: F/P - Black; E - Municipal Trash Bin "single patient use only" No Longer Active 02/26/2017 [facility] Trazodone Hydrochloride 100 MG Oral Tablet 100 mg, 2 tab, Route: PO, Drug form: TAB, Bedtime, Dosing Weight 118.182, kg, Start date: 02/25/17 21:00:00 CDT, Duration: 30 day, Stop date: 03/26/17 21:00:00 CDTNotes: (Same As: Desyrel) No Longer Active 02/26/2017 [facility] tizanidine 2 mg, 0.5 tab, Route: PO, Drug form: TAB, Bedtime, Dosing Weight 118.182, kg, Start date: 02/25/17 21:00:00 CDT, Duration: 30 day, Stop date: 03/26/17 21:00:00 CDTNotes: (Same As: Zanaflex) No Longer Active 02/26/2017 [facility] Insulin Glargine 100 UNT/ML Injectable Solution [Lantus] 62 unit, Route: SUB-Q, Drug form: SOLN, Bedtime, Dosing Weight 118.182, kg, Start date: 02/25/17 21:00:00 CDT, Duration: 30 day, Stop date: 03/26/17 21:00:00 CDT Inactive 02/26/2017 [facility] vancomycin + sodium chloride 0.9% 500 mL INJ (for IV set) 500 mL 1,750 mg, Route: IVPB, [id number], Start date: 02/25/17 17:00:00 CDT, Duration: 30 day, Stop date: 03/26/17 17:00:00 CDT, ABX Indication: BacteremiaNotes: TIME CRITICAL MEDICATION (Same As: Vancocin) Infusion rate 2001 mg: infuse over 2.5 hours MEDICATION WASTE Product Size: 1000 mg Product Wasted: ___ mg No Longer Active 02/25/2017 [facility] cefepime + sodium chloride 0.9% INJ 100 mL 2 gm, Route: IVPB, [id number], Dosing Weight 118.182, kg, (CrCl 10 - 29 ml/min, PROGRAM COORDINATOR infection or neutropenic fever), Start date: 02/25/17 17:00:00 CDT, Duration: 7 day, Stop date: 03/03/17 17:00:00 CDT, ABX Indication: Skin/Soft Tissue InfectionNotes: (Same as: Maxipime) MEDICATION WASTE Product Size: 2000 mg Product Wasted: ___ mg No Longer Active 02/25/2017 [facility] Isosorbide 30 mg, 1 tab, Route: PO, Drug form: ERTAB, QPM, Dosing Weight 118.182, kg, Start date: 02/25/17 17:00:00 CDT, Duration: 30 day, Stop date: 03/26/17 17:00:00 CDTNotes: (Same as:Imdur) "Do Not Crush" Take on empty stomach/ full glass of water. Do not crush No Longer Active 02/25/2017 [facility] sodium chloride 0.9% INJ 250 mL 250 mL, Rate: center rep for use with blood product administration, Dosing Weight 118.182, kg, Route: IV, Total Volume: 250, Start Date: 02/25/17 16:34:00 CDT, Duration: 30 day, Stop date: 03/27/17 16:33:00 CDT, Replace Every: 24 hr No Longer Active 02/25/2017 [facility] NovoLog 6 unit, 0.06 mL, Route: SUB-Q, Drug form: SOLN, TID-Before Meals, Dosing Weight 118.182, kg, Start date: 02/25/17 16:30:00 CDT, Duration: 30 day, Stop date: 03/27/17 11:30:00 CDTNotes: Roll in palms of hands gently; Do not shake vigorously. (Same as: NovoLOG) "single patient use only" WASTE: F/P - Black; E - Municipal Trash Bin Stable for 28 days at room temperature. Expires in days from Date No Longer Active 02/25/2017 [facility] Morphine 4 mg, 1 mL, Route: IVP, Drug form: INJ, Q4H, Dosing Weight 118.182, kg, PRN Pain Score 7-10, Start date: 02/25/17 15:00:00 CDT, Duration: 30 day, Stop date: 03/27/17 14:59:00 CDTNotes: (Same as:MORPhine Sulfate) No Longer Active 02/25/2017 [facility] Insulin, Aspart, Human 6 unit, 0.06 mL, Route: SUB-Q, Drug form: SOLN, TID-Before Meals, Dosing Weight 118.182, kg, PRN Blood Glucose Results, Start date: 02/25/17 14:58:00 CDT, Duration: 30 day, Stop date: 03/27/17 14:57:00 CDTNotes: Roll in palms of hands gently; Do not shake vigorously. (Same as: NovoLOG) "single patient use only" WASTE: F/P - Black; E - Municipal Trash Bin Stable for 28 days at room temperature. Expires in days from Date No Longer Active 02/25/2017 [facility] Dextrose 50% Syringe 12.5 gm, 25 mL, Route: IVP, Drug Form: INJ, Dosing Weight 118.182, kg, PRN, PRN Blood Glucose Results, Start date: 02/25/17 14:58:00 CDT, Duration: 30 day, Stop date: 03/27/17 14:57:00 CDT No Longer Active 02/25/2017 [facility] Glucagon 1 mg, Route: IM, Drug form: PDR/INJ, PRN, Dosing Weight 118.182, kg, PRN Blood Glucose Results, Start date: 02/25/17 14:58:00 CDT, Duration: 30 day, Stop date: 03/27/17 14:57:00 CDT No Longer Active 02/25/2017 [facility] gabapentin 900 mg, 3 cap, Route: PO, Drug form: CAP, TID, Dosing Weight 118.182, kg, Start date: 02/25/17 13:00:00 CDT, Duration: 30 day, Stop date: 03/27/17 9:00:00 CDTNotes: (Same as: Neurontin) No Longer Active 02/25/2017 [facility] tizanidine 4 mg, 1 tab, Route: PO, Drug form: TAB, Bedtime, Dosing Weight 118.182, kg, PRN as needed for muscle spasm, Start date: 02/25/17 9:05:00 CDT, Duration: 30 day, Stop date: 03/27/17 9:04:00 CDTNotes: (Same As: Zanaflex) No Longer Active 02/25/2017 [facility] Spironolactone 50 mg, 1 tab, Route: PO, Drug form: TAB, Q-M-W-F, Dosing Weight 118.182, kg, Priority: NOW, Start date: 02/25/17 9:05:00 CDT, Duration: 30 day, Stop date: 03/27/17 9:00:00 CDTNotes: (Same As: Aldacto ne) No Longer Active 02/25/2017 [facility] Metolazone 2.5 MG Oral Tablet 2.5 mg, 1 tab, Route: PO, Drug form: TAB, Q-M-W-F, Dosing Weight 118.182, kg, Priority: NOW, Start date: 02/25/17 9:04:00 CDT, Duration: 30 day, Stop date: 03/27/17 9:00:00 CDTNotes: (Same as: Zaroxolyn) Inactive 02/25/2017 [facility] Synthroid 175 microgram, 1 tab, Route: PO, Drug form: TAB, Daily, Dosing Weight 118.182, kg, Priority: NOW, Start date: 02/25/17 9:04:00 CDT, Duration: 30 day, Stop date: 03/27/17 6:30:00 CDTNotes: Take 1 hour before or 2 hours after meal; Enteral feeds may interefere with the absorption of this medication. (Same as: Levothroid, Synthroid) No Longer Active 02/25/2017 [facility] Triiodothyronine 25 microgram, 1 tab, Route: PO, Drug form: TAB, Daily, Dosing Weight 118.182, kg, Priority: NOW, Start date: 02/25/17 9:04:00 CDT, Duration: 30 day, Stop date: 03/27/17 9:00:00 CDTNotes: (Same as: Cytomel) No Longer Active 02/25/2017 [facility] Isosorbide 60 mg, 1 tab, Route: PO, Drug form: ERTAB, QAM, Dosing Weight 118.182, kg, Priority: NOW, Start date: 02/25/17 9:03:00 CDT, Duration: 30 day, Stop date: 03/27/17 9:00:00 CDTNotes: (Same as:Imdur) "Do Not Crush" Take on empty stomach/ full glass of water. Do not crush No Longer Active 02/25/2017 [facility] Morphine 2 mg, 0.5 mL, Route: IVP, Drug form: INJ, ONCE, Dosing Weight 118.182, kg, Start date: 02/25/17 0:47:00 CDT, Stop date: 02/25/17 0:47:00 CDTNotes: (Same as:MORPhine Sulfate) Inactive 02/25/2017 [facility] tizanidine 4 mg oral tablet 4 mg=1 tab, PO, Bedtime, PRN for muscle spasm, # 30 tab, 0 Refill(s) Active 02/25/2017 [facility] tapentadol 50 MG Oral Tablet [Nucynta] 50 mg=1 tab, PO, Q8H, PRN for pain, 0 Refill(s) Active 02/25/2017 [facility] cefepime 2 gm, Route: IVPB, [id number], Dosing Weight 118.182, kg, (CrCl 10 - 29 ml/min, PROGRAM COORDINATOR infection or neutropenic fever), Start date: 02/24/17 19:00:00 CDT, Duration: 7 day, Stop date: 03/02/17 19:00:00 CDT, ABX Indication: Skin/Soft Tissue InfectionNotes: (Same as: Maxipime) MEDICATION WASTE Product Size: 2000 mg Product Wasted: ___ mg Inactive 02/25/2017 [facility] cefepime 2 gm, Route: IVPB, [id number], Dosing Weight 118.182, kg, (CrCl 30 - 49 ml/min, PROGRAM COORDINATOR infection or neutropenic fever), Priority: NOW, Start date: 02/24/17 18:56:00 CDT, Duration: 30 day, Stop date: 03/26/17 6:56:00 CDT, ABX Indication: PROGRAM COORDINATOR Infection/Epidur...Notes: (Same as: Maxipime) MEDICATION WASTE Product Size: 2000 mg Product Wasted: ___ mg No Longer Active 02/24/2017 [facility] Morphine 2 mg, 0.5 mL, Route: IVP, Drug form: INJ, Q4H, Dosing Weight 118.182, kg, PRN Pain Score 7-10, Start date: 02/24/17 18:17:00 CDT, Duration: 30 day, Stop date: 03/26/17 18:16:00 CDTNotes: (Same as:MORPhine Sulfate) No Longer Active 02/24/2017 [facility] Vancomycin 1,500 mg, Route: IVPB, Drug form: INJ, [id number], Dosing Weight 118.182, kg, Start date: 02/24/17 18:00:00 CDT, Duration: 7 day, Stop date: 03/02/17 18:00:00 CDT, ABX Indication: Skin/Soft Tissue Infection Inactive 02/24/2017 [facility] Dextrose 50% Syringe 25 gm, 50 mL, Route: IVP, Drug Form: INJ, Dosing Weight 118.182, kg, PRN, PRN Blood Glucose Results, Start date: 02/24/17 17:56:00 CDT, Duration: 30 day, Stop date: 03/26/17 17:55:00 CDT No Longer Active 02/24/2017 [facility] Glucagon 1 mg, Route: IM, Drug form: PDR/INJ, PRN, Dosing Weight 118.182, kg, PRN Blood Glucose Results, Start date: 02/24/17 17:56:00 CDT, Duration: 30 day, Stop date: 03/26/17 17:55:00 CDT No Longer Active 02/24/2017 [facility] Insulin, Aspart, Human 2 unit, 0.02 mL, Route: SUB-Q, Drug form: SOLN, TID-Before Meals, Dosing Weight 118.182, kg, PRN Blood Glucose Results, Start date: 02/24/17 17:56:00 CDT, Duration: 30 day, Stop date: 03/26/17 17:55:00 CDTNotes: Roll in palms of hands gently; Do not shake vigorously. (Same as: NovoLOG) "single patient use only" WASTE: F/P - Black; E - [facility]ash [facility] Stable for 28 days at room temperature. Expires in days from Date No Longer Active 02/24/2017 [facility] Saline Flush 0.9% 10 ml, Route: IVP, Drug Form: INJ, Dosing Weight 118.182, kg, PRN, PRN Line Flush, Start date: 02/24/17 17:50:00 CDT, Duration: 30 day, Stop date: 03/26/17 17:49:00 CDTNotes: (Same as: BD Posiflush) No Longer Active 02/24/2017 [facility] Trazodone 50 mg, 1 tab, Route: PO, Drug form: TAB, Bedtime, Dosing Weight 118.182, kg, PRN Insomnia, Start date: 02/24/17 17:50:00 CDT, Duration: 30 day, Stop date: 03/26/17 17:49:00 CDTNotes: (Same As: Desyrel) No Longer Active 02/24/2017 [facility] Sodium Chloride 0.154 MEQ/ML Injectable Solution 1,000 mL, Rate: 125 ml/hr, Infuse over: 8 hr, Route: IV, Dosing Weight 118.182 kg, Total Volume: 1,000, Start date: 02/24/17 17:50:00 CDT, Duration: 30 day, Stop date: 03/26/17 17:49:00 CDT No Longer Active 02/24/2017 [facility] Docusate 100 mg, 1 cap, Route: PO, Drug form: CAP, BID, Dosing Weight 118.182, kg, PRN Constipation, Start date: 02/24/17 17:50:00 CDT, Duration: 30 day, Stop date: 03/26/17 17:49:00 CDTNotes: (Same as: Colace) (Do Not Crush) No Longer Active 02/24/2017 [facility] Acetaminophen 650 mg, 2 tab, Route: PO, Drug form: TAB, Q4H, Dosing Weight 118.182, kg, PRN Pain 1-3/Temp > 100.4 F, Start date: 02/24/17 17:50:00 CDT, Duration: 30 day, Stop date: 03/26/17 17:49:00 CDTNotes: Do not exceed 4 gm/day. (Same as: Tylenol) No Longer Active 02/24/2017 [facility] Hydralazine 20 mg, 1 mL, Route: IVP, Drug form: INJ, Q4H, Dosing Weight 118.182, kg, PRN Elevated BP, Start date: 02/24/17 17:50:00 CDT, Duration: 30 day, Stop date: 03/26/17 17:49:00 CDT, For SBP greater than 180N otes: (Same as: Apresoline) Push over 5 minutes No Longer Active 02/24/2017 [facility] Melatonin 3 mg, 1 tab, Route: PO, Drug form: TAB, Bedtime, Dosing Weight 118.182, kg, PRN Sleep, Start date: 02/24/17 17:50:00 CDT, Duration: 30 day, Stop date: 03/26/17 17:49:00 CDTNotes: (Same as: Melatonin) No Longer Active 02/24/2017 [facility] Ondansetron 4 mg, 2 mL, Route: IVP, Drug form: INJ, Q6H, Dosing Weight 118.182, kg, PRN Nausea & Vomiting, Start date: 02/24/17 17:50:00 CDT, Duration: 30 day, Stop date: 03/26/17 17:49:00 CDTNotes: (Same as: Zofran) MEDICATION WASTE Product Size: 4 mg Product Wasted: ___ mg No Longer Active 02/24/2017 [facility] vancomycin + sodium chloride 0.9% 500 mL INJ (for IV set) 500 mL 1,750 mg, Route: IVPB, ONCE, Start date: 02/24/17 16:54:00 CDT, Stop date: 02/24/17 16:54:00 CDT, ABX Indication: Skin/Soft Tissue InfectionNotes: TIME CRITICAL MEDICATION (Same As: Vancocin) Infusion rate 2001 mg: infuse over 2.5 hours MEDICATION WASTE Product Size: 1000 mg Product Wasted: ___ mg Inactive 02/24/2017 [facility] cefepime 2 gm, Route: IVPB, ONCE, Dosing Weight 118.182, kg, Priority: STAT, Start date: 02/24/17 16:50:00 CDT, Duration: 1 doses or times, Stop date: 02/24/17 16:50:00 CDT, ABX Indication: BacteremiaNotes: (Same as: Maxipime) MEDICATION WASTE Product Size: 2000 mg Product Wasted: ___ mg Inactive 02/24/2017 [facility] Vancomycin 1,772.73 mg, Route: IVPB, Drug form: INJ, ONCE, Dosing Weight 118.182, kg, Priority: STAT, Start date: 02/24/17 16:50:00 CDT, Duration: 1 doses or times, Stop date: 02/24/17 16:50:00 CDT, ABX Indication: Bacteremia Inactive 02/24/2017 [facility] Sodium Chloride 0.154 MEQ/ML Injectable Solution 1,000 mL, 1000 ml/hr, Infuse Over: 1 hr, Route: IV, 1,000, Drug form: INJ, ONCE, Priority: STAT, Dosing Weight 118.182 kg, Start date: 02/24/17 16:46:00 CDT, Duration: 1 doses or times, Stop date: 02/24/17 16:46:00 CDT Inactive 02/24/2017 [facility] Ondansetron 4 mg, 2 mL, Route: IVP, Drug form: INJ, ONCE, Dosing Weight 118.182, kg, Priority: STAT, Start date: 02/24/17 16:46:00 CDT, Stop date: 02/24/17 16:46:00 CDTNotes: (Same as: Zofran) MEDICATION WASTE Product Size: 4 mg Product Wasted: ___ mg Inactive 02/24/2017 [facility] Spironolactone 50 mg, 1 tab, Route: PO, Drug form: TAB, Q-M-W-F, Dosing Weight 123, kg, Start date: 02/02/17 9:00:00 CDT, Duration: 30 day, Stop date: 03/02/17 9:00:00 CDTNotes: (Same As: Aldactone) No Longer Active 02/02/2017 [facility] Heparin Lock 100 units/mL INJ solution 500 unit, 5 mL, Route: INJ, Drug Form: SOLN, Dosing Weight 127.182, kg, PRN, PRN Other -See Comment, Start date: 01/31/17 17:16:00 CDT, Duration: 30 day, Stop date: 03/02/17 17:15:00 CDTNotes: (Same as: Heparin Lock Flush) No Longer Active 01/31/2017 [facility] Albuterol 0.833 MG/ML / Ipratropium [place] 0.167 MG/ML Inhalant Solution [DuoNeb] 3 mL, Route: NEB, Drug Form: SOLN, Dosing Weight 127.182, kg, ONCE, NOW, Start date: 01/31/17 10:35:00 CDT, Stop date: 01/31/17 10:35:00 CDTNotes: (Same as: Duoneb) Inactive 01/31/2017 [facility] Allopurinol 300 mg, 1 tab, Route: PO, Drug form: TAB, Daily, Dosing Weight 123, kg, Start date: 01/31/17 9:00:00 CDT, Duration: 30 day, Stop date: 03/01/17 9:00:00 CDTNotes: (Same as: Zyloprim) No Longer Active 01/31/2017 [facility] multivitamin 2 tab, Route: PO, Drug Form: TAB, Dosing Weight 123, kg, Daily, Start date: 01/31/17 9:00:00 CDT, Duration: 30 day, Stop date: 03/01/17 9:00:00 CDTNotes: (Same as:Thera) WASTE: F/P - Black; E - [facility] Trash [facility] Take with food. No Longer Active 01/31/2017 [facility] Vitamin D3 10,000 IntlUnit, 10 tab, Route: PO, Drug form: TAB, Daily, Dosing Weight 123, kg, Start date: 01/31/17 9:00:00 CDT, Duration: 30 day, Stop date: 03/01/17 9:00:00 CDTNotes: Same as : Vitamin D3 No Longer Active 01/31/2017 [facility] CHROMIUM PICOLINATE 2,000 mg, Route: PO, Daily, Dosing Weight 123, kg, Start date: 01/31/17 9:00:00 CDT, Duration: 30 day, Stop date: 03/01/17 9:00:00 CDT No Longer Active 01/31/2017 [facility] Triiodothyronine 25 microgram, 1 tab, Route: PO, Drug form: TAB, Daily, Dosing Weight 123, kg, Start date: 01/31/17 9:00:00 CDT, Duration: 30 day, Stop date: 03/01/17 9:00:00 CDTNotes: (Same as: Cytomel) No Longer Active 01/31/2017 [facility] Synthroid 175 microgram, 1 tab, Route: PO, Drug form: TAB, Daily, Dosing Weight 123, kg, Start date: 01/31/17 9:00:00 CDT, Duration: 30 day, Stop date: 03/01/17 9:00:00 CDTNotes: Take 1 hour before or 2 hours after meal; Enteral feeds may interefere with the absorption of this medication. (Same as: Levothroid, Synthroid) No Longer Active 01/31/2017 [facility] Isosorbide 60 mg, 1 tab, Route: PO, Drug form: ERTAB, QAM, Dosing Weight 123, kg, Start date: 01/31/17 9:00:00 CDT, Duration: 30 day, Stop date: 03/01/17 9:00:00 CDTNotes: (Same as:Imdur) "Do Not Crush" Take on empty stomach/ full glass of water. Do not crush No Longer Active 01/31/2017 [facility] Levemir FlexPen 62 unit, 0.62 mL, Route: SUB-Q, Drug form: INJ, Bedtime, Start date: 01/30/17 21:00:00 CDT, Duration: 30 day, Stop date: 02/28/17 21:00:00 CDTNotes: Same as Levemir Do not hold insulin without contac ting prescriber WASTE: F/P - Black; E - [facility]ash [facility] "single patient use only" No Longer Active 01/31/2017 [facility] Vancomycin 2,000 mg, Route: IVPB, Q12H, Dosing Weight 123, kg, Time Critical Medication, Start date: 01/30/17 21:00:00 CDT, Duration: 1 doses or times, Stop date: 01/30/17 21:00:00 CDT, ABX Indication: Surgical Pr ophylaxisNotes: TIME CRITICAL MEDICATION (Same As: Vancocin) Infusion rate 2001 mg: infuse over 2.5 hours MEDICATION WASTE Product Size: 1000 mg Product Wasted: ___ mg Inactive 01/31/2017 [facility] Temazepam 15 mg, 1 cap, Route: PO, Drug form: CAP, Bedtime, Dosing Weight 127.182, kg, Start date: 01/30/17 21:00:00 CDT, Duration: 30 day, Stop date: 02/28/17 21:00:00 CDTNotes: (Same As: Restoril) No Longer Active 01/31/2017 [facility] Insulin Glargine 100 UNT/ML Injectable Solution [Lantus] 62 unit, Route: SUB-Q, Drug form: SOLN, Bedtime, Dosing Weight 123, kg, Start date: 01/30/17 21:00:00 CDT, Duration: 30 day, Stop date: 02/28/17 21:00:00 CDT Inactive 01/31/2017 [facility] Trazodone Hydrochloride 100 MG Oral Tablet 100 mg, 2 tab, Route: PO, Drug form: TAB, Bedtime, Dosing Weight 123, kg, Start date: 01/30/17 21:00:00 CDT, Duration: 30 day, Stop date: 02/28/17 21:00:00 CDTNotes: (Same As: Desyrel) No Longer Active 01/31/2017 [facility] tizanidine 2 mg, 0.5 tab, Route: PO, Drug form: TAB, Bedtime, Dosing Weight 123, kg, Start date: 01/30/17 21:00:00 CDT, Duration: 30 day, Stop date: 02/28/17 21:00:00 CDTNotes: (Same As: Zanaflex) No Longer Active 01/31/2017 [facility] Isosorbide 30 mg, 1 tab, Route: PO, Drug form: ERTAB, QPM, Dosing Weight 123, kg, Start date: 01/30/17 17:00:00 CDT, Duration: 30 day, Stop date: 02/28/17 17:00:00 CDTNotes: (Same as:Imdur) "Do Not Crush" Take on empty stomach/ full glass of water. Do not crush No Longer Active 01/30/2017 [facility] Benadryl 25 mg, 1 cap, Route: PO, Drug form: CAP, TID, Dosing Weight 127.182, kg, PRN Itching, Start date: 01/30/17 15:58:00 CDT, Duration: 30 day, Stop date: 03/01/17 15:57:00 CDTNotes: (Same as: Benadryl) No Longer Active 01/30/2017 [facility] gabapentin 900 mg, 3 cap, Route: PO, Drug form: CAP, TID, Dosing Weight 123, kg, Start date: 01/30/17 13:00:00 CDT, Duration: 30 day, Stop date: 03/01/17 9:00:00 CDTNotes: (Same as: Neurontin) No Longer Active 01/30/2017 [facility] Insulin, Aspart, Human 3 unit, 0.03 mL, Route: SUB-Q, Drug form: SOLN, TID-Before Meals, Dosing Weight 127.182, kg, PRN Blood Glucose Results, Start date: 01/30/17 12:31:00 CDT, Duration: 30 day, Stop date: 03/01/17 12:30:00 CDTNotes: Roll in palms of hands gently; Do not shake vigorously. (Same as: NovoLOG) "single patient use only" WASTE: F/P - Black; E - [facility] Trash Bin Stable for 28 days at room temperature. Expires in days from Date No Longer Active 01/30/2017 [facility] Glucagon 1 mg, Route: IM, Drug form: PDR/INJ, PRN, Dosing Weight 127.182, kg, PRN Blood Glucose Results, Start date: 01/30/17 12:31:00 CDT, Duration: 30 day, Stop date: 03/01/17 12:30:00 CDT No Longer Active 01/30/2017 [facility] Dextrose 50% Syringe 12.5 gm, 25 mL, Route: IVP, Drug Form: INJ, Dosing Weight 127.182, kg, PRN, PRN Blood Glucose Results, Start date: 01/30/17 12:31:00 CDT, Duration: 30 day, Stop date: 03/01/17 12:30:00 CDT No Longer Active 01/30/2017 [facility] Ondansetron 4 mg, 2 mL, Route: IVP, Drug form: INJ, Q6H, Dosing Weight 127.182, kg, PRN Nausea & Vomiting, Start date: 01/30/17 12:28:00 CDT, Duration: 30 day, Stop date: 03/01/17 12:27:00 CDTNotes: (Same as: Diana) MEDICATION WASTE Product Size: 4 mg Product Wasted: ___ mg Inactive 01/30/2017 [facility] Morphine 2 mg, 1 mL, Route: IVP, Drug form: INJ, Q4H, Dosing Weight 127.182, kg, PRN Pain Score 7-10, Start date: 01/30/17 12:28:00 CDT, Duration: 30 day, Stop date: 03/01/17 12:27:00 CDTNotes: (Same as:MORPhine Sulfate) No Longer Active 01/30/2017 [facility] Docusate 100 mg, 1 cap, Route: PO, Drug form: CAP, BID, Dosing Weight 127.182, kg, PRN Constipation, Start date: 01/30/17 12:28:00 CDT, Duration: 30 day, Stop date: 03/01/17 12:27:00 CDTNotes: (Same as: Colace) (Do Not Crush) No Longer Active 01/30/2017 [facility] Hydralazine 20 mg, 1 mL, Route: IVP, Drug form: INJ, Q4H, Dosing Weight 127.182, kg, PRN Elevated BP, Start date: 01/30/17 12:28:00 CDT, Duration: 30 day, Stop date: 03/01/17 12:27:00 CDT, For SBP greater than 180N otes: (Same as: Apresoline) Push over 5 minutes No Longer Active 01/30/2017 [facility] Melatonin 3 mg, 1 tab, Route: PO, Drug form: TAB, Bedtime, Dosing Weight 127.182, kg, PRN Sleep, Start date: 01/30/17 12:28:00 CDT, Duration: 30 day, Stop date: 03/01/17 12:27:00 CDTNotes: (Same as: Melatonin) No Longer Active 01/30/2017 [facility] Trazodone 50 mg, 1 tab, Route: PO, Drug form: TAB, Bedtime, Dosing Weight 127.182, kg, PRN Insomnia, Start date: 01/30/17 12:28:00 CDT, Duration: 30 day, Stop date: 03/01/17 12:27:00 CDTNotes: (Same As: Desyrel) No Longer Active 01/30/2017 [facility] Acetaminophen 650 mg, 2 tab, Route: PO, Drug form: TAB, Q4H, Dosing Weight 127.182, kg, PRN Pain 1-3/Temp > 100.4 F, Start date: 01/30/17 12:28:00 CDT, Duration: 30 day, Stop date: 03/01/17 12:27:00 CDTNotes: Do not exceed 4 gm/day. (Same as: Tylenol) No Longer Active 01/30/2017 [facility] atropine-diphenoxylate 0.025 mg-2.5 mg oral tablet 2 tab, Route: PO, Drug Form: TAB, PRN, PRN Diarrhea, Start date: 01/30/17 12:21:00 CDT, Duration: 30 day, Stop date: 03/01/17 12:20:00 CDTNotes: (Same As: Lomotil) MAX Adult dose=8 tabs/day No Longer Active 01/30/2017 [facility] Ondansetron 4 mg, 2 mL, Route: IVP, Drug form: INJ, ONCE, Dosing Weight 123, kg, Start date: 01/30/17 10:53:00 CDT, Stop date: 01/30/17 10:53:00 CDT, ..Notes: (Same as: Diana) MEDICATION WASTE Product Size: 4 mg Product Wasted: ___ mg Inactive 01/30/2017 [facility] Buspirone 7.5 mg, 0.5 tab, Route: PO, Drug form: TAB, ONCE, Dosing Weight 123, kg, Start date: 01/30/17 10:53:00 CDT, Stop date: 01/30/17 10:53:00 CDT, ..Notes: (Same As: BuSpar) Inactive 01/30/2017 [facility] Nitroglycerin 0.4 MG Sublingual Tablet [Nitrostat] 0.4 mg, 1 tab, Route: SL, Drug form: TAB, Q5Min, Dosing Weight 123, kg, PRN Chest Pain, Start date: 01/30/17 10:52:00 CDT, Duration: 3 doses or times, Stop date: Limited # of timesNotes: (Same as:Nitroquick, Nitrostat) "Do Not Crush" Sublingual tablet No Longer Active 01/30/2017 [facility] Atropine Sulfate 0.025 MG / Diphenoxylate Hydrochloride 2.5 MG Oral Tablet [Lomotil] 1 tab, Route: PO, Drug Form: TAB, Dosing Weight 123, kg, PRN, PRN Diarrhea, Start date: 01/30/17 10:49:00 CDT, Duration: 30 day, Stop date: 03/01/17 10:48:00 CDTNotes: (Same As: Lomotil) MAX Adult dose=8 tabs/day No Longer Active 01/30/2017 [facility] 1/2NS + KCL 20mEq/L 1000ml (Premix) 1,000 mL 1,000 mL, Rate: 75 ml/hr, Infuse over: 13.3 hr, Route: IV, Dosing Weight 123 kg, Total Volume: 1,000, Start date: 01/30/17 10:46:00 CDT, Duration: 30 day, Stop date: 03/01/17 10:45:00 CDTNotes: PREMIX IV - Do Not Alter WASTE: F/P - Sink; E - [facility] Trash Bin No Longer Active 01/30/2017 [facility] Zofran 4 mg, 1 tab, Route: PO, Drug form: TAB, Q8H, Dosing Weight 123, kg, PRN Nausea, Start date: 01/30/17 10:46:00 CDT, Duration: 30 day, Stop date: 03/01/17 10:45:00 CDTNotes: (Same as: Zofran) No Longer Active 01/30/2017 [facility] glycopyrrolate (ANES) Route: IV, Drug form: INJ, ONCE, Stop date: 01/30/17 10:19:00 CDT Inactive 01/30/2017 [facility] neostigmine (ANES) Route: IV, Drug form: INJ, ONCE, Stop date: 01/30/17 10:14:00 CDT Inactive 01/30/2017 [facility] ondansetron (ANES) Route: IV, Drug form: INJ, ONCE, Stop date: 01/30/17 10:09:00 CDT Inactive 01/30/2017 [facility] rocuronium (ANES) Route: IV, Drug form: INJ, ONCE, Stop date: 01/30/17 8:39:00 CDT Inactive 01/30/2017 [facility] propofol (ANES) Route: IV, Drug form: INJ, ONCE, Stop date: 01/30/17 8:39:00 CDT Inactive 01/30/2017 [facility] dexamethasone (ANES) Route: IV, Drug form: INJ, ONCE, Stop date: 01/30/17 8:39:00 CDT Inactive 01/30/2017 [facility] midazolam (ANES) Route: IV, Drug form: SOLN, ONCE, Stop date: 01/30/17 8:39:00 CDT Inactive 01/30/2017 [facility] fentaNYL (ANES) Route: IV, Drug form: INJ, ONCE, Stop date: 01/30/17 8:39:00 CDT Inactive 01/30/2017 [facility] ePHEDrine (ANES) Route: IV, Drug form: INJ, ONCE, Stop date: 01/30/17 8:34:00 CDT Inactive 01/30/2017 [facility] Ondansetron 4 mg, 2 mL, Route: IVP, Drug form: INJ, ONCE, Dosing Weight 123, kg, PRN Nausea & Vomiting, Start date: 01/30/17 8:08:00 CDTNotes: (Same as: Zofran) MEDICATION WASTE Product Size: 4 mg Pro duct Wasted: ___ mg Inactive 01/30/2017 [facility] Diphenhydramine 12.5 mg, 0.25 mL, Route: IVP, Drug form: INJ, Q6H, Dosing Weight 123, kg, PRN Itching, Start date: 01/30/17 8:08:00 CDT, Duration: 30 day, Stop date: 03/01/17 8:07:00 CDTNotes: (Same as: Benadryl) Inactive 01/30/2017 [facility] Flumazenil 0.2 mg, 2 mL, Route: IVP, Drug form: INJ, PRN, Dosing Weight 123, kg, PRN Benzodiazepine Reversal, Initial dose, Start date: 01/30/17 8:08:00 CDT, Duration: 30 day, Stop date: 03/01/17 8:07:00 CDTNotes: (Same as: Romazicon) Inactive 01/30/2017 [facility] Naloxone 0.4 mg, 1 mL, Route: IVP, Drug form: INJ, Q2MIN, Dosing Weight 123, kg, PRN Narcotic Reversal, Start date: 01/30/17 8:08:00 CDT, Duration: 8 doses or times, Stop date: Limited # of timesNotes: Same as Narcan Inactive 01/30/2017 [facility] Fentanyl 50 microgram, 1 mL, Route: IVP, Drug form: INJ, Q5Min, Dosing Weight 123, kg, PRN Pain Score 7-10, Priority: Routine, Start date: 01/30/17 8:08:00 CDT, Duration: 2 doses or times, Stop date: Limited # of timesNotes: (Same as: Sublimaze) Preservative free. Inactive 01/30/2017 [facility] Labetalol 10 mg, 2 mL, Route: IVP, Drug form: INJ, Q5Min, Dosing Weight 123, kg, PRN Elevated BP, Start date: 01/30/17 8:08:00 CDT, Duration: 5 doses or times, Stop date: Limited # of timesNotes: (Same as: Normod yne, Trandate) Push over 2 minutes Give bolus over 2-3 minutes. Inactive 01/30/2017 [facility] Hydralazine 10 mg, 0.5 mL, Route: IVP, Drug form: INJ, Q20Min, Dosing Weight 123, kg, PRN Elevated BP, Start date: 01/30/17 8:08:00 CDT, Duration: 2 doses or times, Stop date: Limited # of timesNotes: (Same as: Apresoline) Push over 5 minutes Inactive 01/30/2017 [facility] vancomycin (ANES) (ANES) Route: IV, Drug form: INJ, Start date: 01/30/17 7:51:00 CDT, Stop date: 01/30/17 8:51:00 CDT Inactive 01/30/2017 [facility] Isolyte S (PH 7.4) 1000 mL (ANES) Route: IV, Total Volume: 1,000, Start date: 01/30/17 7:42:00 CDT, Stop date: 01/30/17 8:42:00 CDT Inactive 01/30/2017 [facility] Temazepam 30 mg, PO, Bedtime, 0 Refill(s) No Longer Active 01/27/2017 [facility] Vitamin D3 10,000 IntlUnit, PO, Daily Active 01/27/2017 [facility] Humalog SUB-Q Active 01/27/2017 [facility] Insulin Glargine 100 UNT/ML Injectable Solution [Lantus] 62 unit, SUB-Q, Bedtime Active 01/27/2017 [facility] isosorbide mononitrate 30 mg oral tablet, extended release 30 mg=1 tab, PO, QPM Active 01/27/2017 [facility] isosorbide mononitrate 60 mg oral tablet, extended release 60 mg=1 tab, PO, QAM Active 01/27/2017 [facility] metoprolol extended release PO, BID Active 01/27/2017 [facility] heparin flush 500 unit, 5 mL, Route: IVP, Drug form: SOLN, ONCALL, Start date: 12/30/16 12:00:00 CDT, Duration: 1 day, Stop date: 12/31/16 11:59:00 CDTNotes: (Same as: Heparin Lock Flush) Inactive 12/30/2016 [facility] sodium chloride 20 mL, Route: IVP, Start date: 12/30/16 12:00:00 CDT, Duration: 1 day, Stop date: 12/31/16 11:59:00 CDTNotes: preservative free. Inactive 12/30/2016 [facility] Hydromorphone 0.5 mg, Route: IVP, Q5Min, Dosing Weight 123.182, kg, PRN Pain Score 7-10, Start date: 12/30/16 8:54:00 CDT, Duration: 4 doses or times, Stop date: Limited # of times Inactive 12/30/2016 [facility] Oxycodone 10 mg, Route: PO, Drug form: TAB, Q4H, Dosing Weight 123.182, kg, PRN Pain Score 7-10, Start date: 12/30/16 8:54:00 CDT, Duration: 30 day, Stop date: 01/29/17 8:53:00 CDT Inactive 12/30/2016 [facility] Fentanyl 50 microgram, Route: IVP, Q5Min, Dosing Weight 123.182, kg, PRN Pain Score 7-10, Priority: Routine, Start date: 12/30/16 8:54:00 CDT, Duration: 2 doses or times, Stop date: Limited # of times Inactive 12/30/2016 [facility] Naloxone 0.4 mg, Route: IVP, Q2MIN, Dosing Weight 123.182, kg, PRN Narcotic Reversal, Start date: 12/30/16 8:54:00 CDT, Duration: 8 doses or times, Stop date: Limited # of times Inactive 12/30/2016 [facility] Flumazenil 0.2 mg, Route: IVP, PRN, Dosing Weight 123.182, kg, PRN Benzodiazepine Reversal, Initial dose, Start date: 12/30/16 8:54:00 CDT, Duration: 30 day, Stop date: 01/29/17 8:53:00 CDT Inactive 12/30/2016 [facility] Calcium Chloride 0.0014 MEQ/ML / Potassium Chloride 0.004 MEQ/ML / Sodium Chloride 0.103 MEQ/ML / Sodium Lactate 0.028 MEQ/ML Injectable Solution 1,000 mL, Rate: 125 ml/hr, Infuse over: 8 hr, Route: IV, Dosing Weight 123.182 kg, Total Volume: 1,000, Start date: 12/30/16 8:54:00 CDT, Duration: 30 day, Stop date: 01/29/17 8:53:00 CDT Inactive 12/30/2016 [facility] Morphine 2 mg, Route: IVP, Q5Min, Dosing Weight 123.182, kg, PRN Pain Score 4-6, Start date: 12/30/16 8:54:00 CDT, Duration: 5 doses or times, Stop date: Limited # of times Inactive 12/30/2016 [facility] Meperidine 12.5 mg, Route: IVP, Q30Min, Dosing Weight 123.182, kg, PRN Other -See Comment, For shivering, Start date: 12/30/16 8:54:00 CDT, Duration: 2 doses or times, Stop date: Limited # of times Inactive 12/30/2016 [facility] Ondansetron 4 mg, Route: IVP, ONCE, Dosing Weight 123.182, kg, PRN Nausea & Vomiting, Start date: 12/30/16 8:54:00 CDT Inactive 12/30/2016 [facility] Promethazine 6.25 mg, Route: IVPB, ONCE, Dosing Weight 123.182, kg, PRN Nausea & Vomiting, Start date: 12/30/16 8:54:00 CDT Inactive 12/30/2016 [facility] Diphenhydramine 12.5 mg, Route: IVP, Drug form: INJ, Q6H, Dosing Weight 123.182, kg, PRN Itching, Start date: 12/30/16 8:54:00 CDT, Duration: 30 day, Stop date: 01/29/17 8:53:00 CDT Inactive 12/30/2016 [facility] fentaNYL (ANES) Route: IV, Drug form: INJ, ONCE, Stop date: 12/30/16 8:43:00 CDT Inactive 12/30/2016 [facility] midazolam (ANES) Route: IV, Drug form: SOLN, ONCE, Stop date: 12/30/16 8:38:00 CDT Inactive 12/30/2016 [facility] Morphine Sulfate 1 MG/ML Injectable Solution [Duramorph] 1 mg, 1 mL, Route: INTRATHECAL, Drug form: INJ, ONCE, Dosing Weight 123.182, kg, Priority: STAT, Start date: 12/30/16 8:07:00 CDT, Stop date: 12/30/16 8:07:00 CDTNotes: (Same as:Duramorph, Astramorph-PF) Preservative free. Inactive 12/30/2016 [facility] LR 1000 mL INJ (ANES) Route: IV, Total Volume: 1,000, Start date: 12/30/16 7:58:00 CDT, Stop date: 12/30/16 8:58:00 CDT Inactive 12/30/2016 [facility] Calcium Chloride 0.0014 MEQ/ML / Potassium Chloride 0.004 MEQ/ML / Sodium Chloride 0.103 MEQ/ML / Sodium Lactate 0.028 MEQ/ML Injectable Solution 1,000 mL, Rate: 25 ml/hr, Infuse over: 40 hr, Route: IV, Dosing Weight 123.182 kg, Total Volume: 1,000, Start date: 12/30/16 6:08:00 CDT, Duration: 1 day, Stop date: 12/31/16 6:07:00 CDT Inactive 12/30/2016 [facility] Calcium/Magnesium/Zinc/D3 Calcium/Magnesium/Zinc/D3, 1 tab, PO, BID, Refill(s) 0 On Hold 12/26/2016 [facility] multivitamin 2 tabs, PO, Daily, 0 Refill(s) On Hold 12/26/2016 [facility] Vitamin D3 5000 intl units oral capsule 5,000 IntlUnit=1 cap, PO, BID, # 30 cap, 1 Refill(s) Active 12/26/2016 [facility] CHROMIUM PICOLINATE 1,000 mg, PO, Daily, 0 Refill(s) Active 12/26/2016 [facility] biotin 1000 mcg oral tablet 1,000 microgram=1 tab, PO, Daily, # 30 tab, 0 Refill(s) Active 12/26/2016 [facility] tapentadol 50 MG Oral Tablet [Nucynta] 50 mg=1 tab, PO, TID, PRN for pain, 0 Refill(s) On Hold 12/26/2016 [facility] allopurinol 300 mg oral tablet 300 mg=1 tab, PO, Daily, # 30 tab, 0 Refill(s) Active 12/26/2016 [facility] Vitamin D3 50,000 intl units oral capsule 50,000 IntlUnit=1 cap, PO, qWeek, # 12 cap, 0 Refill(s) Active 12/26/2016 [facility] liothyronine 25 mcg oral tablet 25 microgram=1 tab, PO, Daily, # 30 tab, 0 Refill(s) On Hold 12/26/2016 [facility] amLODIPine 5 mg oral tablet 2.5 mg=0.5 tab, PO, Daily, # 30 tab, 0 Refill(s) Active 12/26/2016 [facility] spironolactone 50 mg oral tablet 50 mg=1 tab, PO, Q-M-W-F, # 30 tab, 1 Refill(s) On Hold 12/26/2016 [facility] Metolazone 2.5 MG Oral Tablet 2.5 mg=1 tab, PO, Q-M-W-F, # 30 tab, 0 Refill(s) On Hold 12/26/2016 [facility] isosorbide mononitrate 30 mg oral tablet, extended release 30 mg=1 tab, PO, QPM, # 30 tab, 0 Refill(s) On Hold 12/26/2016 [facility] Trazodone Hydrochloride 100 MG Oral Tablet 100 mg=1 tab, PO, Bedtime, # 30 tab, 0 Refill(s) On Hold 12/26/2016 [facility] Allergies, Adverse Reactions, Alerts Substance Category Reaction Severity Reaction type Status Date Reported Comments Source adhesive tape Assertion Allergy to substance Active [facility] nutrasweet Assertion Propensity to adverse reactions to substance Active [facility] aspertame Assertion Drug allergy Active [facility] penicillins<sup>1, 2</sup> Assertion Drug allergy Active Patient tolerated cefepime. Unspecified agent. Patient endorsed diffuse itching for "penicillins." [facility] iodine topical Assertion Drug allergy Active [facility] tetracyclines<sup>3</sup> Assertion Drug allergy Active Diffuse itching per patient. [facility] erythromycin<sup>4</sup> Assertion Drug allergy Active Itching and rash per patient. [facility] amoxicillin<sup>5, 6</sup> Assertion Drug allergy Active Patient tolerated cefepime. Diffuse itching per patient. [facility] amitriptyline<sup>7</sup> Assertion Propensity to adverse reactions to drug Active Muscle tremors per patient. [facility] baclofen<sup>8</sup> Assertion Propensity to adverse reactions to drug Active Muscle tremors and jerking per patient. [facility] aspirin<sup>9</sup> Assertion Drug allergy Active Patient endorses "wheezing and diaphramatic spasms, throat closing up as well as gastritis." [facility] tetanus toxoid<sup>10</sup> Assertion Propensity to adverse reactions to drug Active Rash and swelling at injection site per patient. [facility] diphtheria-tetanus toxoids<sup>11</sup> Assertion Propensity to adverse reactions to drug Active Rash and swelling at injection site per patient. [facility] Keflex<sup>12, 13</sup> Assertion Drug allergy Active Patient tolerated cefepime. Diffuse itching with vomiting per patient. [facility] Robaxin<sup>14</sup> Assertion Propensity to adverse reactions to drug Active Unknown reaction per patient. [facility] Zocor<sup>15</sup> Assertion Propensity to adverse reactions to drug Active Muscle weakness and pain, as well as wheezing per patient. [facility] Lopid<sup>16</sup> Assertion Propensity to adverse reactions to drug Active Muscle pain per patient. [facility] Percocet<sup>17</sup> Assertion Propensity to adverse reactions to drug Active Vomiting per patient. [facility] Talwin<sup>18</sup> Assertion Drug allergy Active Itching and rash per patient. [facility] Biaxin<sup>19</sup> Assertion Drug allergy Active Itching and rash per patient. [facility] Celestone Assertion Drug allergy Active [facility] Ultram<sup>20</sup> Assertion Drug allergy Active Rash, itching, headaches, and irregular heartbeats per patient. [facility] Augmentin<sup>21, 22</sup> Assertion Drug allergy Active Patient tolerated cefepime. Diffuse itching per patient. [facility] Betadine<sup>23</sup> Assertion Drug allergy Active Rash and itching per patient. [facility] Lipitor<sup>24</sup> Assertion Propensity to adverse reactions to drug Active Muscle pain, weakness and dark urine per patient. [facility] Prinivil<sup>25</sup> Assertion Propensity to adverse reactions to drug Active Tachycardia per patient. [facility] Pro-Banthine<sup>26</sup> Assertion Propensity to adverse reactions to drug Active Unknown reaction per patient. [facility] Reglan<sup>27</sup> Assertion Propensity to adverse reactions to drug Active Muscle tremors per patient. [facility] [place]<sup>28</sup> Assertion Drug allergy Active Itching per patient. [facility] Advair Diskus<sup>29</sup> Assertion Propensity to adverse reactions to drug Active Patient endorses "neurologic problems." [facility] Zetia<sup>30</sup> Assertion Propensity to adverse reactions to drug Active Muscle weakness, pain, wheezing per patient. [facility] Other Food Allergy<sup>31</sup> Assertion Drug allergy Active splenda [facility] Lyrica<sup>32</sup> Assertion Propensity to adverse reactions to drug Active Muscle tremors and jerking per patient. [facility] NSAIDs<sup>33</sup> Assertion Drug allergy Active Patient endorses "wheezing and diaphramatic spasms, throat closing up as well as gastritis." [facility] TEGretol<sup>34</sup> Assertion Propensity to adverse reactions to drug Active Unknown reaction per patient. [facility] Advair Diskus Assertion Drug allergy Active [facility] all mycins Assertion Drug allergy Active [facility] amitriptyline Assertion Drug allergy Active [facility] amoxicillin Assertion Drug allergy Active [facility] aspirin Assertion Drug allergy Active [facility] Augmentin Assertion Drug allergy Active [facility] baclofen Assertion Drug allergy Active [facility] Betadine Assertion Propensity to adverse reactions to substance Active [facility] Biaxin Assertion Drug allergy Active [facility] Darvon-N Assertion Drug allergy Active [facility] diphtheria-tetanus toxoids Assertion Drug allergy Active [facility] erythromycin Assertion Drug allergy Active [facility] Keflex Assertion Drug allergy Active [facility] Lipitor Assertion Drug allergy Active [facility] Lopid Assertion Drug allergy Active [facility] Lyrica Assertion Drug allergy Active [facility] [place] Assertion Drug allergy Active [facility] NSAIDs Assertion Drug allergy Active [facility] penicillins Assertion Drug allergy Active [facility] Percocet Assertion Drug allergy Active [facility] Prinivil Assertion Drug allergy Active [facility] Pro-Banthine Assertion Drug allergy Active [facility] Reglan Assertion Drug allergy Active [facility] Robaxin Assertion Drug allergy Active [facility] Talwin Assertion Drug allergy Active [facility] TEGretol Assertion Drug allergy Active [facility] tetanus immune globulin Assertion Drug allergy Active [facility] tetanus toxoid Assertion Drug allergy Active [facility] tetracyclines Assertion Drug allergy Active [facility] Ultram Assertion Drug allergy Active [facility] Zaroxolyn Assertion Drug allergy Active [facility] Zetia Assertion Drug allergy Active [facility] Zocor Assertion Drug allergy Active [facility] Other Food Allergy<sup>1</sup> Assertion Drug allergy Active splenda [facility] Advair Diskus<sup>1</sup> Assertion Propensity to adverse reactions to drug Active Patient endorses "neurologic problems." [facility] amitriptyline<sup>2</sup> Assertion Propensity to adverse reactions to drug Active Muscle tremors per patient. [facility] amoxicillin<sup>3, 4</sup> Assertion Drug allergy Active Patient tolerated cefepime. Diffuse itching per patient. [facility] aspirin<sup>5</sup> Assertion Drug allergy Active Patient endorses "wheezing and diaphramatic spasms, throat closing up as well as gastritis." [facility] Augmentin<sup>6, 7</sup> Assertion Drug allergy Active Patient tolerated cefepime. Diffuse itching per patient. [facility] Betadine<sup>9</sup> Assertion Drug allergy Active Rash and itching per patient. [facility] Biaxin<sup>10</sup> Assertion Drug allergy Active Itching and rash per patient. [facility] erythromycin<sup>12</sup> Assertion Drug allergy Active Itching and rash per patient. [facility] Keflex<sup>13, 14</sup> Assertion Drug allergy Active Patient tolerated cefepime. Diffuse itching with vomiting per patient. [facility] Lipitor<sup>15</sup> Assertion Propensity to adverse reactions to drug Active Muscle pain, weakness and dark urine per patient. [facility] Lyrica<sup>17</sup> Assertion Propensity to adverse reactions to drug Active Muscle tremors and jerking per patient. [facility] [place]<sup>18</sup> Assertion Drug allergy Active Itching per patient. [facility] NSAIDs<sup>19</sup> Assertion Drug allergy Active Patient endorses "wheezing and diaphramatic spasms, throat closing up as well as gastritis." [facility] Other Food Allergy<sup>20</sup> Assertion Drug allergy Active splenda [facility] penicillins<sup>21, 22</sup> Assertion Drug allergy Active Patient tolerated cefepime. Unspecified agent. Patient endorsed diffuse itching for "penicillins." [facility] Percocet<sup>23</sup> Assertion Propensity to adverse reactions to drug Active Vomiting per patient. [facility] Prinivil<sup>24</sup> Assertion Propensity to adverse reactions to drug Active Tachycardia per patient. [facility] Pro-Banthine<sup>25</sup> Assertion Propensity to adverse reactions to drug Active Unknown reaction per patient. [facility] Reglan<sup>26</sup> Assertion Propensity to adverse reactions to drug Active Muscle tremors per patient. [facility] Robaxin<sup>27</sup> Assertion Propensity to adverse reactions to drug Active Unknown reaction per patient. [facility] Talwin<sup>28</sup> Assertion Drug allergy Active Itching and rash per patient. [facility] TEGretol<sup>29</sup> Assertion Propensity to adverse reactions to drug Active Unknown reaction per patient. [facility] tetanus toxoid<sup>30</sup> Assertion Propensity to adverse reactions to drug Active Rash and swelling at injection site per patient. [facility] tetracyclines<sup>31</sup> Assertion Drug allergy Active Diffuse itching per patient. [facility] Ultram<sup>32</sup> Assertion Drug allergy Active Rash, itching, headaches, and irregular heartbeats per patient. [facility] Zetia<sup>33</sup> Assertion Propensity to adverse reactions to drug Active Muscle weakness, pain, wheezing per patient. [facility] Zocor<sup>34</sup> Assertion Propensity to adverse reactions to drug Active Muscle weakness and pain, as well as wheezing per patient. [facility] Immunizations No Data Provided for This Section Results Order Name Results Value Reference Range Date Interpretation Comments Source CHEM PANEL Magnesium Lvl 2.1 1.8 - 2.4 03/03/2017 [facility] CHEM PANEL eGFR 48 03/03/2017 Result Comment: The eGFR is calculated using the CKD-EPI formula. In most young, healthy individuals the eGFR will be >90 mL/min/1.73m2. The eGFR declines with age. An eGFR of 60-89 may be normal in some populations, particularly the elderly, for whom the CKD-EPI formula has not been extensively validated. Use of the eGFR is not recommended in the following populations:

Individuals with unstable creatinine concentrations, including patients and those with serious co-morbid conditions.

Patients with extremes in muscle mass or diet.

The data above are obtained from the National Kidney Disease Education Program (NKDEP) which additionally recommends that when the eGFR is used in patients with extremes of body mass index for purposes of drug dosing, the eGFR should be multiplied by the estimated BMI. [facility] CHEM PANEL Sodium Lvl 140 135 - 145 03/03/2017 [facility] CHEM PANEL BUN 13 7 - 22 03/03/2017 [facility] CHEM PANEL Creatinine Lvl 1.20 0.50 - 1.40 03/03/2017 [facility] CHEM PANEL Glucose Lvl 86 70 - 99 03/03/2017 [facility] CHEM PANEL AGAP 8.3 10.0 - 20.0 03/03/2017 [facility] CHEM PANEL Chloride Lvl 104 95 - 109 03/03/2017 [facility] CHEM PANEL CO2 32 24 - 32 03/03/2017 [facility] CHEM PANEL Potassium Lvl 4.3 3.5 - 5.1 03/03/2017 [facility] CHEM PANEL Calcium Lvl 8.5 8.5 - 10.5 03/03/2017 [facility] CHEM PANEL Phosphorus 4.2 2.5 - 4.5 03/03/2017 [facility] CHEM PANEL eGFR 53 03/02/2017 Result Comment: The eGFR is calculated using the CKD-EPI formula. In most young, healthy individuals the eGFR will be >90 mL/min/1.73m2. The eGFR declines with age. An eGFR of 60-89 may be normal in some populations, particularly the elderly, for whom the CKD-EPI formula has not been extensively validated. Use of the eGFR is not recommended in the following populations:

Individuals with unstable creatinine concentrations, including patients and those with serious co-morbid conditions.

Patients with extremes in muscle mass or diet.

The data above are obtained from the National Kidney Disease Education Program (NKDEP) which additionally recommends that when the eGFR is used in patients with extremes of body mass index for purposes of drug dosing, the eGFR should be multiplied by the estimated BMI. [facility] CHEM PANEL AGAP 8.4 10.0 - 20.0 03/02/2017 [facility] CHEM PANEL CO2 33 24 - 32 03/02/2017 [facility] CHEM PANEL Chloride Lvl 103 95 - 109 03/02/2017 [facility] CHEM PANEL Potassium Lvl 4.4 3.5 - 5.1 03/02/2017 [facility] CHEM PANEL Calcium Lvl 8.4 8.5 - 10.5 03/02/2017 [facility] CHEM PANEL Sodium Lvl 140 135 - 145 03/02/2017 [facility] CHEM PANEL Creatinine Lvl 1.10 0.50 - 1.40 03/02/2017 [facility] CHEM PANEL BUN 15 7 - 22 03/02/2017 [facility] CHEM PANEL Glucose Lvl 101 70 - 99 03/02/2017 [facility] CHEM PANEL Magnesium Lvl 2.3 1.8 - 2.4 03/02/2017 [facility] CHEM PANEL Phosphorus 4.2 2.5 - 4.5 03/02/2017 [facility] CHEM PANEL Phosphorus 3.2 2.5 - 4.5 03/01/2017 [facility] CHEM PANEL Creatinine Lvl 1.00 0.50 - 1.40 03/01/2017 [facility] CHEM PANEL Sodium Lvl 139 135 - 145 03/01/2017 [facility] CHEM PANEL BUN 17 7 - 22 03/01/2017 [facility] CHEM PANEL Chloride Lvl 102 95 - 109 03/01/2017 [facility] CHEM PANEL AGAP 8.3 10.0 - 20.0 03/01/2017 [facility] CHEM PANEL Calcium Lvl 7.6 8.5 - 10.5 03/01/2017 [facility] CHEM PANEL CO2 33 24 - 32 03/01/2017 [facility] CHEM PANEL Potassium Lvl 4.3 3.5 - 5.1 03/01/2017 [facility] CHEM PANEL eGFR 59 03/01/2017 Result Comment: The eGFR is calculated using the CKD-EPI formula. In most young, healthy individuals the eGFR will be >90 mL/min/1.73m2. The eGFR declines with age. An eGFR of 60-89 may be normal in some populations, particularly the elderly, for whom the CKD-EPI formula has not been extensively validated. Use of the eGFR is not recommended in the following populations:

Individuals with unstable creatinine concentrations, including patients and those with serious co-morbid conditions.

Patients with extremes in muscle mass or diet.

The data above are obtained from the National Kidney Disease Education Program (NKDEP) which additionally recommends that when the eGFR is used in patients with extremes of body mass index for purposes of drug dosing, the eGFR should be multiplied by the estimated BMI. [facility] CHEM PANEL Glucose Lvl 149 70 - 99 03/01/2017 [facility] CHEM PANEL Magnesium Lvl 2.2 1.8 - 2.4 03/01/2017 [facility] TOXICOLOGY Vanco Tr TND [id number] 02/28/2017 [facility] TOXICOLOGY Vanco Tr 12.5 02/28/2017 [facility] TOXICOLOGY Vanco Tr TND [id number] 02/27/2017 [facility] TOXICOLOGY Vanco Tr 21.6 02/27/2017 [facility] CHEM PANEL Uric Acid 6.4 2.5 - 7.0 02/27/2017 [facility] Platelet 232 133 - 450 02/27/2017 [facility] RDW 16.0 11.5 - 14.5 02/27/2017 [facility] MPV 8.2 7.4 - 10.4 02/27/2017 [facility] WBC 7.0 3.7 - 10.4 02/27/2017 [facility] Hgb 9.2 12.0 - 16.0 02/27/2017 [facility] RBC 2.93 4.20 - 5.40 02/27/2017 [facility] Hct 27.3 36.0 - 48.0 02/27/2017 [facility] MCH 31.2 27.0 - 31.0 02/27/2017 [facility] MCV 92.9 80.0 - 98.0 02/27/2017 [facility] MCHC 33.6 32.0 - 36.0 02/27/2017 [facility] Segs-Bands # 3.7 1.5 - 8.1 02/27/2017 [facility] Lymphocytes # 1.9 1.0 - 5.5 02/27/2017 [facility] Eosinophils # 0.4 0.0 - 0.5 02/27/2017 [facility] Monocytes # 1.0 0.0 - 0.8 02/27/2017 [facility] Monocytes 13.5 2.0 - 12.0 02/27/2017 [facility] Lymphocytes 26.8 20.0 - 40.0 02/27/2017 [facility] HEMATOLOGY Basophils 0.4 0.0 - 1.0 02/27/2017 [facility] HEMATOLOGY Eosinophils 6.0 0.0 - 4.0 02/27/2017 [facility] HEMATOLOGY Segs 53.3 45.0 - 75.0 02/27/2017 [facility] ANEMIA STUDY Vitamin B12 Lvl 700 254 - 1320 02/26/2017 [facility] ANEMIA STUDY Ferritin Lvl 134 5 - 204 02/26/2017 [facility] WBC 8.1 3.7 - 10.4 02/26/2017 [facility] RBC 3.46 4.20 - 5.40 02/26/2017 [facility] RDW 16.3 11.5 - 14.5 02/26/2017 [facility] Hct 32.5 36.0 - 48.0 02/26/2017 [facility] Hgb 10.7 12.0 - 16.0 02/26/2017 [facility] MCH 30.9 27.0 - 31.0 02/26/2017 [facility] MCV 94.0 80.0 - 98.0 02/26/2017 [facility] [facility] MCHC 32.9 32.0 - 36.0 02/26/2017 [facility] MPV 8.5 7.4 - 10.4 02/26/2017 [facility] Platelet 222 133 - 450 02/26/2017 [facility] Eosinophils # 0.4 0.0 - 0.5 02/26/2017 [facility] Monocytes # 1.0 0.0 - 0.8 02/26/2017 [facility] Lymphocytes # 1.8 1.0 - 5.5 02/26/2017 [facility] Segs-Bands # 4.9 1.5 - 8.1 02/26/2017 [facility] Eosinophils 5.0 0.0 - 4.0 02/26/2017 [facility] Basophils 0.5 0.0 - 1.0 02/26/2017 [facility] HEMATOLOGY Segs 60.1 45.0 - 75.0 02/26/2017 [facility] Lymphocytes 22.1 20.0 - 40.0 02/26/2017 [facility] Monocytes 12.3 2.0 - 12.0 02/26/2017 [facility] Basophils # 0.0 0.0 - 0.2 02/26/2017 [facility] BLOOD BANK RESULTS Antibody Scrn Negative (7/12/17 5:02 PM) 02/25/2017 [facility] BLOOD BANK RESULTS ABO/Rh A POS 02/25/2017 [facility] CHEM PANEL Alk Phos 79 39 - 136 02/25/2017 [facility] CHEM PANEL Bili Total 0.9 0.2 - 1.3 02/25/2017 [facility] CHEM PANEL AST 14 0 - 37 02/25/2017 [facility] CHEM PANEL Albumin Lvl 2.5 3.5 - 5.0 02/25/2017 [facility] CHEM PANEL Globulin 4.6 2.7 - 4.2 02/25/2017 [facility] CHEM PANEL A/G Ratio 0.5 0.7 - 1.6 02/25/2017 [facility] CHEM PANEL ALT 11 0 - 65 02/25/2017 [facility] CHEM PANEL Total Protein 7.1 6.4 - 8.4 02/25/2017 [facility] CHEM PANEL B/C Ratio 22 6 - 25 02/25/2017 [facility] Platelet 233 133 - 450 02/25/2017 [facility] MPV 8.2 7.4 - 10.4 02/25/2017 [facility] Hgb 10.7 12.0 - 16.0 02/25/2017 [facility] RBC 3.46 4.20 - 5.40 02/25/2017 [facility] RDW 16.2 11.5 - 14.5 02/25/2017 [facility] MCHC 33.0 32.0 - 36.0 02/25/2017 [facility] MCH 30.9 27.0 - 31.0 02/25/2017 [facility] Hct 32.3 36.0 - 48.0 02/25/2017 [facility] MCV 93.4 80.0 - 98.0 02/25/2017 [facility] WBC 12.8 3.7 - 10.4 02/25/2017 [facility] Lymphocytes 18.7 20.0 - 40.0 02/25/2017 [facility] HEMATOLOGY Segs 70.7 45.0 - 75.0 02/25/2017 [facility] Lymphocytes # 2.4 1.0 - 5.5 02/25/2017 [facility] HEMATOLOGY Eosinophils 2.2 0.0 - 4.0 02/25/2017 [facility] Basophils 0.3 0.0 - 1.0 02/25/2017 [facility] Segs-Bands # 9.1 1.5 - 8.1 02/25/2017 [facility] HEMATOLOGY Monocytes 8.1 2.0 - 12.0 02/25/2017 [facility] HEMATOLOGY Monocytes # 1.0 0.0 - 0.8 02/25/2017 [facility] HEMATOLOGY Eosinophils # 0.3 0.0 - 0.5 02/25/2017 [facility] URINE AND STOOL UA Leuk Est Negative (02/24/17 9:24 PM) Negative 02/25/2017 [facility] URINE AND STOOL UA Sq Epi Occasional /LPF Few /LPF 02/25/2017 [facility] URINE AND STOOL UA Nitrite Negative (02/24/17 9:24 PM) Negative 02/25/2017 [facility] URINE AND STOOL UA Mucus Few /LPF None Seen /LPF 02/25/2017 [facility] URINE AND STOOL UA Ketones Negative mg/dL Negative mg/dL 02/25/2017 [facility] URINE AND STOOL UA Bili Negative *NA* (02/24/17 9:24 PM) Negative 02/25/2017 [facility] URINE AND STOOL UA WBC 1 0 - 5 02/25/2017 [facility] URINE AND STOOL UA Blood Negative (02/24/17 9:24 PM) Negative 02/25/2017 [facility] URINE AND STOOL UA Color Ltyellow 02/25/2017 [facility] URINE AND STOOL UA Urobilinogen <=1.0 0.1 - 1.0 02/25/2017 [facility] URINE AND STOOL UA Hyal Cast 4 0 - 2 02/25/2017 [facility] URINE AND STOOL UA Bacteria Moderate /HPF None Seen /HPF 02/25/2017 [facility] URINE AND STOOL UA RBC <1 0 - 2 02/25/2017 [facility] URINE AND STOOL UA Glucose Negative mg/dL Negative mg/dL 02/25/2017 [facility] URINE AND STOOL UA Spec Grav 1.006 <=1.030 02/25/2017 [facility] URINE AND STOOL UA pH 6.0 5.0 - 8.0 02/25/2017 [facility] URINE AND STOOL UA Protein Negative mg/dL Negative mg/dL 02/25/2017 [facility] URINE AND STOOL UA Turbidity Clear (02/24/17 9:24 PM) Clear 02/25/2017 [facility] URINE CHEM U Prot/Creat 0.1 02/25/2017 [facility] URINE CHEM U Protein 8.2 02/25/2017 [facility] URINE CHEM U Creatinine 55.60 02/25/2017 [facility] URINE CHEM U Chloride 40 02/25/2017 [facility] URINE CHEM U Osmolality 239 300 - 800 02/25/2017 [facility] URINE CHEM U Eos None Seen (02/24/17 9:24 PM) None Seen 02/25/2017 [facility] URINE CHEM U Creatinine 55.60 02/25/2017 [facility] URINE CHEM U Sodium 44 02/25/2017 [facility] HEMATOLOGY Basophils # 0.0 0.0 - 0.2 02/24/2017 [facility] CHEM PANEL Lactic Acid Lvl 1.0 0.5 - 2.2 02/24/2017 [facility] CHEM PANEL A/G Ratio 0.5 0.7 - 1.6 02/24/2017 [facility] CHEM PANEL Globulin 5.0 2.7 - 4.2 02/24/2017 [facility] CHEM PANEL B/C Ratio 20 6 - 25 02/24/2017 [facility] CHEM PANEL Albumin Lvl 2.7 3.5 - 5.0 02/24/2017 [facility] CHEM PANEL Total Protein 7.7 6.4 - 8.4 02/24/2017 [facility] CHEM PANEL AST 12 0 - 37 02/24/2017 [facility] CHEM PANEL ALT 12 0 - 65 02/24/2017 [facility] CHEM PANEL Bili Total 1.5 0.2 - 1.3 02/24/2017 [facility] CHEM PANEL Alk Phos 78 39 - 136 02/24/2017 [facility] BLOOD BANK RESULTS Antibody Scrn Negative (01/27/17 2:59 PM) 01/27/2017 [facility] BLOOD BANK RESULTS ABO/Rh A POS 01/27/2017 [facility] ELECTROLYTES AGAP 11.6 10.0 - 20.0 01/27/2017 [facility] ELECTROLYTES eGFR 67 01/27/2017 Result Comment: The eGFR is calculated using the CKD-EPI formula. In most young, healthy individuals the eGFR will be >90 mL/min/1.73m2. The eGFR declines with age. An eGFR of 60-89 may be normal in some populations, particularly the elderly, for whom the CKD-EPI formula has not been extensively validated. Use of the eGFR is not recommended in the following populations:

Individuals with unstable creatinine concentrations, including patients and those with serious co-morbid conditions.

Patients with extremes in muscle mass or diet.

The data above are obtained from the National Kidney Disease Education Program (NKDEP) which additionally recommends that when the eGFR is used in patients with extremes of body mass index for purposes of drug dosing, the eGFR should be multiplied by the estimated BMI. [facility] ELECTROLYTES Calcium Lvl 10.2 8.5 - 10.5 01/27/2017 [facility] ELECTROLYTES Potassium Lvl 3.6 3.5 - 5.1 01/27/2017 [facility] ELECTROLYTES Sodium Lvl 140 135 - 145 01/27/2017 [facility] ELECTROLYTES Glucose Lvl 108 70 - 99 01/27/2017 [facility] ELECTROLYTES CO2 28 24 - 32 01/27/2017 [facility] ELECTROLYTES Chloride Lvl 104 95 - 109 01/27/2017 [facility] ELECTROLYTES BUN 28 7 - 22 01/27/2017 [facility] ELECTROLYTES Creatinine Lvl 0.90 0.50 - 1.40 01/27/2017 [facility] HEMATOLOGY PTT 25.6 22.9 - 35.8 01/27/2017 [facility] INR 0.89 0.85 - 1.17 01/27/2017 [facility] PT 12.2 12.0 - 14.7 01/27/2017 [facility] MCH 30.9 27.0 - 31.0 01/27/2017 [facility] MCHC 33.5 32.0 - 36.0 01/27/2017 [facility] MCV 92.0 80.0 - 98.0 01/27/2017 [facility] RDW 17.1 11.5 - 14.5 01/27/2017 [facility] Hgb 11.7 12.0 - 16.0 01/27/2017 [facility] RBC 3.78 4.20 - 5.40 01/27/2017 [facility] Hct 34.8 36.0 - 48.0 01/27/2017 [facility] MPV 8.4 7.4 - 10.4 01/27/2017 [facility] Platelet 258 133 - 450 01/27/2017 [facility] WBC 7.7 3.7 - 10.4 01/27/2017 [facility] Segs-Bands # 5.3 1.5 - 8.1 01/27/2017 [facility] Eosinophils # 0.1 0.0 - 0.5 01/27/2017 [facility] Monocytes # 0.7 0.0 - 0.8 01/27/2017 [facility] Lymphocytes # 1.6 1.0 - 5.5 01/27/2017 [facility] HEMATOLOGY Basophils # 0.1 0.0 - 0.2 01/27/2017 [facility] HEMATOLOGY Basophils 0.7 0.0 - 1.0 01/27/2017 [facility] HEMATOLOGY Segs 68.1 45.0 - 75.0 01/27/2017 [facility] HEMATOLOGY Eosinophils 1.4 0.0 - 4.0 01/27/2017 [facility] HEMATOLOGY Monocytes 9.4 2.0 - 12.0 01/27/2017 [facility] HEMATOLOGY Lymphocytes 20.4 20.0 - 40.0 01/27/2017 [facility] IMMUNOLOGY HIV Ag/Ab 4th Gen Negative *NA* (01/27/17 2:59 PM) Negative 01/27/2017 [facility] Pathology Reports No Data Provided for This Section Diagnostic Reports Report Value Date Source Chest 1view DX REASON FOR EXAM: Cough and sputum. COMPARISON: Report of a chest x-ray performed 10/04/2002 was reviewed. The images are not available for direct comparison. FINDINGS: Portable chest x-ray. Left-sided Port-A-Cath with distal tip in the superior vena cava. Spinal cord stimulator with distal tip in the midthoracic region. Surgical clips at the level of the thyroid bed. Overlying monitor leads. Mild enlargement of the cardiac silhouette. There is no demonstrable lung consolidation, pneumothorax, vascular congestion or pleural effusion. Degenerative changes of the spine. Mild widening of the left acromioclavicular joint. IMPRESSION: 1. Mild enlargement of the cardiac silhouette. 2. There is no demonstrable acute pulmonary abnormality. SL: 14 02/28/2017 [facility] Spine thoracic wo contrast CT Clinical Indication: Backache - checking position of spinal cord stimulator Comparison: None Technique: Multi-detector CT imaging of the thoracic spine is performed. Coronal and sagittal reconstructions were obtained. CT Radiation Dose DLP 1121 mGy-cm FINDINGS: ALIGNMENT AND GENERAL ASSESSMENT: There is normal alignment of the thoracic spine. There are no fractures or subluxations of the thoracic spine. The anterior and posterior paraspinal soft tissues are normal. The vertebral bodies are normal. The facet joints, spinous processes and posterior elements are unremarkable. The costovertebral junctions are unremarkable. The visualized lower cervical segments are unremarkable. Probable hemangioma in the T8 vertebral body. DISK SPACES AND SOFT TISSUES: Mild disc space narrowing at multiple levels in the thoracic spine. Anterior osteophytes. Spinal stimulator leads in the dorsal epidural region at the T8 and T9 levels. There is another partially visualized catheter which appears to be intrathecal which enters the space below the coverage of the study, likely lumbar spine, and terminates at the T8 level. VISUALIZED THORAX: Mild scarring or atelectasis in the dependent portions of the lungs. Left lower lobe calcified granuloma. Partially visualized central venous catheter with tip at the cavoatrial junction. If there is further concern, CT myelogram or MRI of the thoracic spine may be performed for complete assessment. IMPRESSION: 1. Stimulator leads in the dorsal spinal canal at the T8 and T9 levels. There is an additional likely intrathecal catheter which originates below the coverage of the study, likely in the lumbar spine, and terminates at the mid T8 level. 2. Multilevel degenerative changes throughout the thoracic spine as described. SL: [id number] 02/25/2017 [facility] Consultation Notes No Data Provided for This Section Discharge Summaries No Data Provided for This Section History and Physicals No Data Provided for This Section Vital Signs Vital Sign Value Date Comments Source Systolic (mm Hg) 146 03/03/2017 [facility] Diastolic (mm Hg) 79 03/03/2017 [facility] Heart Rate 60 03/03/2017 [facility] Respitory Rate 18 03/03/2017 [facility] Temperature Oral (F) 98.3 F 03/03/2017 [facility] Respitory Rate 18 03/03/2017 [facility] Systolic (mm Hg) 139 03/03/2017 [facility] Diastolic (mm Hg) 73 03/03/2017 [facility] Heart Rate 56 03/03/2017 [facility] Temperature Oral (F) 98.1 F 03/03/2017 [facility] Systolic (mm Hg) 139 03/03/2017 [facility] Diastolic (mm Hg) 58 03/03/2017 [facility] Heart Rate 62 03/03/2017 [facility] Temperature Oral (F) 98.6 F 03/03/2017 [facility] Respitory Rate 18 03/03/2017 [facility] Weight 118.182 02/25/2017 [facility] BMI Calculated 43.36 02/24/2017 [facility] Weight 118.182 02/24/2017 [facility] Height 165.1 cm 02/24/2017 [facility] Heart Rate 68 01/31/2017 [facility] Respitory Rate 18 01/31/2017 [facility] Systolic (mm Hg) 144 01/31/2017 [facility] Diastolic (mm Hg) 74 01/31/2017 [facility] Temperature Oral (F) 97.6 F 01/31/2017 [facility] Temperature Oral (F) 97.8 F 01/31/2017 [facility] Systolic (mm Hg) 121 01/31/2017 [facility] Diastolic (mm Hg) 71 01/31/2017 [facility] Respitory Rate 18 01/31/2017 [facility] Heart Rate 67 01/31/2017 [facility] Systolic (mm Hg) 134 01/31/2017 [facility] Diastolic (mm Hg) 75 01/31/2017 [facility] Temperature Oral (F) 97.9 F 01/31/2017 [facility] Respitory Rate 18 01/31/2017 [facility] Heart Rate 75 01/31/2017 [facility] BMI Calculated 46.66 01/30/2017 [facility] Height 165.1 cm 01/30/2017 [facility] Weight 127.182 01/30/2017 [facility] Height 165.1 cm 01/27/2017 [facility] Weight 123 01/27/2017 [facility] BMI Calculated 45.12 01/27/2017 [facility] Height 165.1 cm 01/27/2017 [facility] Systolic (mm Hg) 122 12/30/2016 [facility] Diastolic (mm Hg) 58 12/30/2016 [facility] Respitory Rate 12 12/30/2016 [facility] Respitory Rate 12 12/30/2016 [facility] Systolic (mm Hg) 111 12/30/2016 [facility] Diastolic (mm Hg) 46 12/30/2016 [facility] Respitory Rate 12 12/30/2016 [facility] Systolic (mm Hg) 128 12/30/2016 [facility] Diastolic (mm Hg) 60 12/30/2016 [facility] Heart Rate 53 12/26/2016 [facility] Temperature Oral (F) 98.3 F 12/26/2016 [facility] Height 165.1 cm 12/26/2016 [facility] BMI Calculated 45.19 12/26/2016 [facility] Weight 123.182 12/26/2016 [facility] Encounters Location Location Details Encounter Type Encounter Number Reason For Visit Attending Provider ADM Date DC Date Status Source [facility] Day Surgery [id number] [place] 12/30/2016 12/30/2016 [facility] Observation [id number] Pipo Muse 01/30/2017 02/01/2017 [facility] Inpatient [id number] Mark Wade 02/24/2017 03/04/2017 [facility] Phone Message [id number] 01/12/2018 01/14/2018 [facility] Procedure Code Date Perfomer Comments Source Appendectomy [id number] [facility] Cardiac catheterization [id number] [facility] Cholecystectomy [id number] [facility] Colonoscopy [id number] [facility] Hemorrhoidectomy [id number] [facility] Hernia repair [id number] [facility] Laminectomy [id number] [facility] Laparoscopy [id number] [facility] Operation [id number] [facility] Procedure<sup>1</sup> [id number] low back surgery with fusion [facility] Procedure<sup>2</sup> [id number] foot surgeries [facility] Procedure<sup>3</sup> [id number] blader suspension [facility] Repair of rotator cuff of shoulder [id number] [facility] Repair of ventral hernia [id number] [facility] PRIMO - Total abdominal hysterectomy [id number] [facility] Thyroidectomy [id number] [facility] Assessment and Plan Assessment and Plan Date Source Extracted from:Title: renal f/u Author: Ibis Wong MD Date: 03/03/17 Impression and Plan 1. BREANNE on reported CKD2 - BREANNE likely due to infection/ATN +/- diuresis - baseline creatinine 0.9 in January - cr creeping up on heavy diuresis. hold aldactone, continue lasix 2. Fluid overload - difficult to assess in setting of obese body habitus - continue lasix, hold Aldactone 3. DM2 - SSI 4. HTN - controlled 5. CAD h/o PCI 6. Infected intrathecal pain pump, abdominal wall cellulitis - s/p removal (02/26/17) - h/o cervical spinal stenosis and chronic pain syndrome - on abx per ID Extracted from:Title: renal consult Author: Johnathan Monroe MD Date: 02/26/17 Requestor: Juan Maharaj MD, [facility] physicians Reason: ARF CC: intrathecal pain pump infection HPI: 66 year old woman with PMHx below notably for placement of intrathecal pain pump last month now presenting with warmth/redness/tenderness/swelling at site consistent with infecton and s/p removal of said pump today. Scr has risen from 0.9 in January to current value of 1.7 so we habe been consulted for evaluation and managementof acute renal failure. Of note, patient states she has hx CKD-3 as well as edema requiring aggressive diuresis with lasix, metolazone and spirinolactone managed by a [place] [facility]. She states her edema is much improved from just a few weeks ago. She states she is cognizant of NSAID nephrotoxicity and has not employed them for acute or chronic pain management. ROS: tolerating PO, presently denies fever, cough, sob, cp, n/v, diarrhea, constipation, cramps, lightheadedness/dizziness. 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 No known occupational chemical expsoure. Ambulatory and independent of ADL's prior to current illness. Denies tobacco, etOH, illicits. All: numerous and reviewed Meds: MAR reviewed Vital Signs (last 24 hrs) Last Charted Temp Oral 98.1 DegF (FEB 26:59) Heart Rate Peripheral 67 bpm (FEB 26:59) Resp Rate 18 BRMIN (FEB 26:59) SBP 127 mmHg (FEB 26 15:59) DBP 87 mmHg (FEB 26:59) SpO2 99 % (FEB 26 15:30) comfortable, alert lucid morbid obesity s1 s2 regular clear, no crackle or wheeze large pannus, +BS, soft, benign ++ adipose >> edema (mimimal) DP/R + Echo: EF 65-70%, diastolic dysfunction unconfirmed Wound cx: staph not aureus A. 1. 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 ?CKD-2 @ baseline, followed by [place] [facility] 3. Edema requiring aggressive diuresis previously 3. DM-2 4. HTN 5. CAD s/p 2 stents (spasms ~prinzmetal angina) 6. cervical spine stenosis, lumbar neuritis, chronic pain syndrome 7. Infected intrathecal pain pump s/p removal today 8. Metabolic alkalosis P. 1. MAR reviewed including vanc/cefepime as per Dr. Chávez -will consider diamox -will consider changing spironolactone to 25mg Qdaily vs. 50 MWF 2. Would D/c IVF tomorrow if stable hemodynamically and tolerating PO post-operatively 3. Anticipate continued "plateauing" of renal function then recovery to near baseline (Scr 0.9 in January) Extracted from:Title: General Admission H&P * Author: Mark Wade MD Date: 02/24/17 Patient: MRS NADIA RENNER Age: 66 years Sex: Female : 1950 Associated Diagnoses: None Author: Mark Wade MD Chief Complaint 02/24/2017 15:[address] Walters for possible infection to intrathical pain pump. Pt states that pump was placed on 01/30. Pt states that she has had fever, swelling around pump site and redness History of Present Illness 66-year-old female, she was admitted in our facility approximately 3 weeks ago for elective placement of an intrathecal pump. The patient has a history of chronic pain syndrome and had been followed outpatient by neurosurgery, Dr. Walters. She had her intrathecal pump placed uneventfully and was discharged home. She states since returning home about 1 week ago she started having warmth and tenderness around the pump insertion site. She also noticed swelling and hardness along the right abdomen all the way to the back site. Yesterday she states her clothes were soaked and her noted there was pus and blood coming out from her right back incision site. The patient also states she had some fevers the past few days. She went to Dr. Walters's office today and was referred to come to the emergency room. Review of Systems All systems are reviewed and are negative except as noted in HPI Histories Past Medical History: 1. Hypertension. 2. Cervical spine stenosis. 3. Chronic pain syndrome. 4. Diabetes mellitus type 2 on insulin. 5. Hypothyroidism, iatrogenic. 6. History of stage IV thyroid cancer, status post resection. 7. Chronic kidney disease stage III. PSH: 1. History of appendectomy. 2. Hysterectomy. 3. History of spinal cord stimulator. FAMILY HISTORY: Denies any history of thyroid disease in the family. SOCIAL HISTORY: Denies any type of tobacco, alcohol or illicit drug use. She currently lives with her spouse. She is retired. Her primary care physician Dr. Pipo Morton. Physical Examination VS/Measurements Measurements from flowsheet : Measurements 02/24/2017 15:22 Heparin Dosing Weight (kg) 81.47 02/24/2017 15:18 Height 165.1 cm Height Collection Method Stated Weight 118.182 kg Dosing Weight Difference Percent -7.076 % Dosing Weight Collection Method Estimated Body Surface Area 2.3281 m2 Body Mass Index 43.36 m2 , Vital Signs (last 24 hrs) Last Charted Temp Oral 98.0 DegF (FEB 24:59) Heart Rate Peripheral 65 bpm (FEB 24:59) Resp Rate 16 BRMIN (FEB 24:59) SBP 136 mmHg (FEB 24:59) DBP 74 mmHg (FEB 24 17:59) SpO2 100 % (FEB 24 17:59) Weight 118.18 kg (FEB 24:18) Height 165.1 cm (FEB 24:18) BMI 43.36 (FEB 24:) General: Alert and oriented. Eye: Extraocular movements are intact. Neck: Non-tender. Respiratory: Lungs are clear to auscultation, Respirations are non-labored. Cardiovascular: Normal rate, Regular rhythm. Gastrointestinal: Non-tender, Non-distended. Integumentary: Left anterior chest wall Port-A-Cath, Right anterior abdominal erythema, swelling, extending to right posterior back with pus draining. Neurologic: Alert, Oriented. Psychiatric: Cooperative. Review / Management Results review: Labs (Last four charted values) WBC H 17.0 (FEB 24) Hgb L 11.2 (FEB 24) Hct L 34.9 (FEB 24) Plt 284 (FEB 24) Na L 131 (FEB 24) K 3.6 (FEB 24) CO2 H 34 (FEB 24) Cl L 88 (FEB 24) Cr H 1.72 (FEB 24) BUN H 35 (FEB 24) Glucose Random L 59 (FEB 24) Ca 9.7 (FEB 24) . Impression and Plan ASSESSMENT: 66-year-old female with chronic pain syndrome with recent elective placement of intrathecal morphine pump admitted for infection of her pump Infected intrathecal morphine pump Acute kidney injury on chronic kidney disease stage II to III Chronic pain syndrome History of stage IV papillary thyroid cancer status post resection Iatrogenic hypothyroidism Insulin-dependent diabetes mellitus type 2 Peripheral neuropathy Hypertension Hypertensive kidney disease History of cervical spinal stenosis DVT prophylaxis with SCDs I started the patient on vancomycin and cefepime. I am placing a consult with infectious disease, Dr. Prajapati. Of also consulted the patient's primary neurosurgeon, Dr. Walters. I will place the patient n.p.o. after midnight. I am starting the patient on IV fluids. I am checking urinalysis as well as urine electrolytes for her renal injury. I placed patient on insulin sliding scale. I will use morphine for pain control as this was with the patient was receiving via her intrathecal pump. Blood cultures have been sent. Addendum by Mark Wade MD on 02/24/2017 19:29 Discussed with neurosurgery, Dr. Muse. We will continue with IV antibiotics tomorrow and neurosurgical also have [employer] rep to evaluate pump to reduce morphine dosage and prevent withdrawal. No surgery planned for tomorrow. 03/04/2017 JAGUAR Wilkes Extracted from:Title: Clinical Document Author: Pipo Muse MD Date: 01/31/17 Patient ambulating, voiding, ready for discharge to home, instructions given re activity, diet, wound care, and meds, to office two weeks 02/01/2017 JAGUAR Wilkes Extracted from:Title: Intrathecal pump trial Author: Brady Mills MD Date: 12/30/16 OP note - intrathecal pump trial The procedure was performed at at [facility], done within the past 30 days, was reviewed with patient prior to the procedure and patient denies significant changes. PATIENT NAME: Nadia Renner DATE OF : 52 REFERRAL SOURCE: [facility] DATE OF PROCEDURE: 12/30/16 SURGEON: Brady Mills M.D. PRE-PROCEDURE DIAGNOSIS: Lumbar post laminectomy syndrome Chronic pain syndrome POST-PROCEDURE DIAGNOSIS: Lumbar post laminectomy syndrome Chronic pain syndrome PROCEDURES: Intrathecal pump trial Fluoroscopic guidance for the above procedure ANESTHESIA: total intravenous anesthetic (TIVA) ESTIMATED BLOOD LOSS: Minimal IV FLUIDS: Per anesthetic/nursing record COMPLICATIONS: None PROCEDURE IN DETAIL: The patient was identified in the procedure room. Risks, benefits, and alternatives were discussed, all questions were answered, and the patient desired to proceed. Consent was noted in the chart and a time out was performed. Then the patient was made comfortable in the prone position on the procedure table. Pressure points were checked and padded awake. Vital signs were stable.Anesthesia was provided as indicated above. An antiseptic solution was used over the area followed by sterile draping. Fluoroscopy was used to optimize the approach over the lumbar spine, significant scoliosis persent with interlaminar osteophytes.. A skin wheal was raised with lidocaine 1% using a 25 gauge 1.5 inch needle and carried deep into the subcutaneous tissue. Then an 18 gauge 1.5 inch needle was placed as an introducer and a 25 gauge 3.5 inch spinal needle was advanced into the subarachnoid space at the L2-L3 level with fluoroscopic guidance. Aspiration was positive for a clear fluid yielding 1 mL total volume. 2 mL of Omnipaque 300 was then injected under live fluoroscopy with dye spread consistent with a subarachnoid injection. Then 100mcg of Duramorph in 1mL 0.9% preservative free saline was injected. The needles were then removed and the tips were noted to be intact. Pressure was applied to the puncture site to prevent ecchymosis and oozing. The site was cleaned and a band-aid was placed over the injection site. The patient was transferred to a stretcher and taken to the recovery area in stable condition. The patient tolerated the procedure well, suffered no apparent adverse events. The patient was then admitted for extended PACU observation to evaluate pain improvement and monitor for potential side effects from the procedure. The patient was then discharged when able to spontaneously void without recorded respiratory depression. Discharge Note/Follow Up Care: Post-op diagnosis - same as above Discharge - home, with responsible adult Medication - resume home medications Activity - resume home activity Diet - resume home diet Medication reconciliation - yes Follow-up - as scheduled or in 2 weeks, 12/30/2016 [facility] Plan of Care No Data Provided for This Section Social History Social History Date Source Social History TypeResponse Substance Abuse Use: None. Alcohol Past, Type Wine. Frequency: 1-2 times per year. Previous treatment: None. Smoking Status Never smoker; Type: Cigarettes; Exposure to Tobacco Smoke None; Cigarette Smoking Last 365 Days No; Reg Smoking Cessation Counseling No entered on: 02/24/17 10/24/2016 [facility] Social History TypeResponse Substance Abuse Use: None. Alcohol Current, Frequency: 1-2 times per year. Smoking Status Never smoker; Exposure to Tobacco Smoke None; Cigarette Smoking Last 365 Days No; Reg Smoking Cessation Counseling No 10/24/2016 [facility] Social History TypeResponse Substance Abuse Use: None. Alcohol Past, Type Wine. Frequency: 1-2 times per year. Previous treatment: None. Smoking Status Never smoker; Type: Cigarettes; Exposure to Tobacco Smoke None; Cigarette Smoking Last 365 Days No; Reg Smoking Cessation Counseling No 10/24/2016 [facility] Family History No Data Provided for This Section Advance Directives No Data Provided for This Section Functional Status No Data Provided for This Section
--- OUTSIDE RECORDS SUMMARY | 2019-04-23 01:22 | XMS REPORT | Summary of Care ---
Author Author [facility] Organization [facility] Address Unknown Phone Unavailable Encounter BASILIO Peguero(LONNIE) [id number] Date(s): 12/30/16 - 12/30/16 [facility] [address] [place] [address]- [phone] Discharge Disposition: Home or Self Care Attending Physician: Brady Mills MD Referring Physician: Brady Mills MD Vital Signs 1 2 3 Most recent to oldest [Reference Range]: 165.1 cm (12/26/16 1:28 PM) Height 98.3 DegF (12/26/16 1:28 PM) Temperature Oral [96.4-99.1 DegF] 122/58 mmHg (12/30/16 9:20 AM) 111/46 mmHg (12/30/16 9:04 AM) 128/60 mmHg (12/30/16 8:47 AM) Blood Pressure [90-140/60-90 mmHg] 12 BRMIN *LOW* (12/30/16 9:20 AM) 12 BRMIN *LOW* (12/30/16 9:04 AM) 12 BRMIN *LOW* (12/30/16 8:47 AM) Respiratory Rate [14-20 BRMIN] 53 bpm *LOW* (12/26/16 1:28 PM) Peripheral Pulse Rate [60-100 bpm] 123.182 kg (12/26/16 1:28 PM) Weight 45.19 m2 (12/26/16 1:28 PM) Body Mass Index Problem List Condition Effective Dates Status Health Status Informant Acquired Active hypothyroidism(Confi rmed) Anxiety(Confirmed) Active Diabetes(Confirmed) Active 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) Fibromyalgia(Confirm Active ed) GERD Resolved (gastroesophageal reflux disease)(Confirmed) Chronic Resolved gout(Confirmed) Hx of thyroid Active cancer(Confirmed) History of thyroid Resolved cancer(Confirmed) Hypertension(Confirm Active ed) Depression(Confirmed Active ) Osteoarthritis(Confi Active rmed) Elevated serum Active creatinine(Confirmed ) Allergies, Adverse Reactions, Alerts Substance Reaction Severity Status adhesive tape Active Advair Diskus Active all mycins Active amitriptyline Active amoxicillin Active aspertame Active aspirin Active Augmentin Active baclofen Active Betadine Active Biaxin Active Celestone Active Darvon-N Active diphtheria-tetanus Active toxoids erythromycin Active iodine topical Active Keflex Active Lipitor Active Lopid Active Lyrica Active Salix Active NSAIDs Active nutrasweet Active penicillins Active Percocet Active Prinivil Active Pro-Banthine Active Reglan Active Robaxin Active Talwin Active TEGretol Active tetanus immune globulin Active tetanus toxoid Active tetracyclines Active Ultram Active Zaroxolyn Active Zetia Active Zocor Active Medications allopurinol 300 mg oral tablet 300 mg=1 tab, PO, Daily, # 30 tab, 0 Refill(s) Start Date: 12/26/16 Status: Ordered amLODIPine 5 mg oral tablet 2.5 mg=0.5 tab, PO, Daily, # 30 tab, 0 Refill(s) Start Date: 12/26/16 Status: Ordered ANES diphenhydrAMINE 12.5 mg, Route: IVP, Drug form: INJ, Q6H, Dosing Weight 123.182, kg, PRN Itching , Start date: 12/30/16 8:54:00 CDT, Duration: 30 day, Stop date: 01/29/17 8:53:0 0 CDT Start Date: 12/30/16 Stop Date: 12/30/16 Status: Discontinued ANES fentaNYL 50 microgram, Route: IVP, Q5Min, Dosing Weight 123.182, kg, PRN Pain Score 7-10, Priority: Routine, Start date: 12/30/16 8:54:00 CDT, Duration: 2 doses or times, Stop date: Limited # of times Start Date: 12/30/16 Stop Date: 12/30/16 Status: Discontinued ANES fentaNYL 25 microgram, Route: IVP, Q5Min, Dosing Weight 123.182, kg, PRN Pain Score 4-6, Priority: Routine, Start date: 12/30/16 8:54:00 CDT, Duration: 4 doses or times, Stop date: Limited # of times Start Date: 12/30/16 Stop Date: 12/30/16 Status: Discontinued ANES flumazenil 0.2 mg, Route: IVP, PRN, Dosing Weight 123.182, kg, PRN Benzodiazepine Reversal, Initial dose, Start date: 12/30/16 8:54:00 CDT, Duration: 30 day, Stop date: 8:53:00 CDT Start Date: 12/30/16 Stop Date: 12/30/16 Status: Discontinued ANES HYDROmorphone 0.5 mg, Route: IVP, Q5Min, Dosing Weight 123.182, kg, PRN Pain Score 7-10, Start date: 12/30/16 8:54:00 CDT, Duration: 4 doses or times, Stop date: Limited # of times Start Date: 12/30/16 Stop Date: 12/30/16 Status: Discontinued ANES meperidine 12.5 mg, Route: IVP, Q30Min, Dosing Weight 123.182, kg, PRN Other -See Comment, For shivering, Start date: 12/30/16 8:54:00 CDT, Duration: 2 doses or times, Sto p date: Limited # of times Start Date: 12/30/16 Stop Date: 12/30/16 Status: Discontinued ANES morphine Sulfate 2 mg, Route: IVP, Q5Min, Dosing Weight 123.182, kg, PRN Pain Score 4-6, Start da te: 12/30/16 8:54:00 CDT, Duration: 5 doses or times, Stop date: Limited # of ti mes Start Date: 12/30/16 Stop Date: 12/30/16 Status: Discontinued ANES morphine Sulfate 4 mg, Route: IVP, Q5Min, Dosing Weight 123.182, kg, PRN Pain Score 7-10, Start d ate: 12/30/16 8:54:00 CDT, Duration: 3 doses or times, Stop date: Limited # of t imes Start Date: 12/30/16 Stop Date: 12/30/16 Status: Discontinued ANES naloxone 0.4 mg, Route: IVP, Q2MIN, Dosing Weight 123.182, kg, PRN Narcotic Reversal, Sta rt date: 12/30/16 8:54:00 CDT, Duration: 8 doses or times, Stop date: Limited # of times Start Date: 12/30/16 Stop Date: 12/30/16 Status: Discontinued ANES ondansetron 4 mg, Route: IVP, ONCE, Dosing Weight 123.182, kg, PRN Nausea & Vomiting, Start date: 12/30/16 8:54:00 CDT Start Date: 12/30/16 Stop Date: 12/30/16 Status: Completed ANES oxyCODONE 10 mg, Route: PO, Drug form: TAB, Q4H, Dosing Weight 123.182, kg, PRN Pain Score 7-10, Start date: 12/30/16 8:54:00 CDT, Duration: 30 day, Stop date: 01/29/17 8 :53:00 CDT Start Date: 12/30/16 Stop Date: 12/30/16 Status: Discontinued ANES oxyCODONE 5 mg, Route: PO, Drug form: TAB, Q4H, Dosing Weight 123.182, kg, PRN Pain Score 4-6, Start date: 12/30/16 8:54:00 CDT, Duration: 30 day, Stop date: 01/29/17 8:5 3:00 CDT Start Date: 12/30/16 Stop Date: 12/30/16 Status: Discontinued ANES promethazine 6.25 mg, Route: IVPB, ONCE, Dosing Weight 123.182, kg, PRN Nausea & Vomiting, Start date: 12/30/16 8:54:00 CDT Start Date: 12/30/16 Stop Date: 12/30/16 Status: Discontinued biotin 1000 mcg oral tablet 1,000 microgram=1 tab, PO, Daily, # 30 tab, 0 Refill(s) Start Date: 12/26/16 Status: Ordered Calcium/Magnesium/Zinc/D3 Calcium/Magnesium/Zinc/D3, 1 tab, PO, BID, Refill(s) 0 Start Date: 12/26/16 Status: Suspended chromium picolinate 1,000 mg, PO, Daily, 0 Refill(s) Start Date: 12/26/16 Status: Ordered Duramorph PF 1 mg/mL preservative-free injectable solution 1 mg, 1 mL, Route: INTRATHECAL, Drug form: INJ, ONCE, Dosing Weight 123.182, kg, Priority: STAT, Start date: 12/30/16 8:07:00 CDT, Stop date: 12/30/16 8:07:00 C DT Notes: (Same as:Duramorph, Astramorph-PF) Preservative free. Start Date: 12/30/16 Stop Date: 12/30/16 Status: Ordered fentaNYL (ANES) Route: IV, Drug form: INJ, ONCE, Stop date: 12/30/16 8:43:00 CDT Start Date: 12/30/16 Stop Date: 12/30/16 Status: Completed heparin flush 500 unit, 5 mL, Route: IVP, Drug form: SOLN, ONCALL, Start date: 12/30/16 12:00: 00 CDT, Duration: 1 day, Stop date: 12/31/16 11:59:00 CDT Notes: (Same as: Heparin Lock Flush) Start Date: 12/30/16 Stop Date: 12/30/16 Status: Completed isosorbide mononitrate 30 mg oral tablet, extended release 30 mg=1 tab, PO, QPM, # 30 tab, 0 Refill(s) Start Date: 12/26/16 Status: Suspended Lactated Ringers 1,000 mL 1,000 mL, Rate: 25 ml/hr, Infuse over: 40 hr, Route: IV, Dosing Weight 123.182 k g, Total Volume: 1,000, Start date: 12/30/16 6:08:00 CDT, Duration: 1 day, Stop date: 12/31/16 6:07:00 CDT Start Date: 12/30/16 Stop Date: 12/30/16 Status: Discontinued Lactated Ringers Injection IV 1000 mL 1,000 mL, Rate: 125 ml/hr, Infuse over: 8 hr, Route: IV, Dosing Weight 123.182 k g, Total Volume: 1,000, Start date: 12/30/16 8:54:00 CDT, Duration: 30 day, Stop date: 01/29/17 8:53:00 CDT Start Date: 12/30/16 Stop Date: 12/30/16 Status: Discontinued liothyronine 25 mcg oral tablet 25 microgram=1 tab, PO, Daily, # 30 tab, 0 Refill(s) Start Date: 12/26/16 Status: Suspended LR 1000 mL INJ (ANES) Route: IV, Total Volume: 1,000, Start date: 12/30/16 7:58:00 CDT, Stop date: 8:58:00 CDT Start Date: 12/30/16 Stop Date: 12/30/16 Status: Completed metolazone 2.5 mg oral tablet 2.5 mg=1 tab, PO, Q-M-W-F, # 30 tab, 0 Refill(s) Start Date: 12/26/16 Status: Suspended midazolam (ANES) Route: IV, Drug form: SOLN, ONCE, Stop date: 12/30/16 8:38:00 CDT Start Date: 12/30/16 Stop Date: 12/30/16 Status: Completed multivitamin 2 tabs, PO, Daily, 0 Refill(s) Start Date: 12/26/16 Status: Suspended Nucynta 50 mg oral tablet 50 mg=1 tab, PO, TID, PRN for pain, 0 Refill(s) Start Date: 12/26/16 Stop Date: 01/02/17 Status: Suspended sodium chloride 20 mL, Route: IVP, Start date: 12/30/16 12:00:00 CDT, Duration: 1 day, Stop date : 12/31/16 11:59:00 CDT Notes: preservative free. Start Date: 12/30/16 Stop Date: 12/30/16 Status: Discontinued spironolactone 50 mg oral tablet 50 mg=1 tab, PO, Q-M-W-F, # 30 tab, 1 Refill(s) Start Date: 12/26/16 Stop Date: 01/25/17 Status: Suspended trazodone 100 mg oral tablet 100 mg=1 tab, PO, Bedtime, # 30 tab, 0 Refill(s) Start Date: 12/26/16 Stop Date: 01/25/17 Status: Suspended Vitamin D3 50,000 intl units oral capsule 50,000 IntlUnit=1 cap, PO, qWeek, # 12 cap, 0 Refill(s) Start Date: 12/26/16 Stop Date: 03/20/17 Status: Ordered Vitamin D3 5000 intl units oral capsule 5,000 IntlUnit=1 cap, PO, BID, # 30 cap, 1 Refill(s) Start Date: 12/26/16 Status: Ordered Results No data available for this section Immunizations No data available for this section Procedures Procedure Date Related Diagnosis Body Site Appendectomy Cardiac catheterization Cholecystectomy Colonoscopy Hemorrhoidectomy Hernia repair Laminectomy Laparoscopy Operation Operation Repair of rotator cuff of shoulder Repair of ventral hernia PRIMO - Total abdominal hysterectomy Thyroidectomy Social History Social History Type Response Substance Abuse Use: None. Alcohol Current, Frequency: 1-2 times per year. Smoking Status Never smoker; Exposure to Tobacco Smoke None; Cigarette Smoking Last 365 Days No; Reg Smoking Cessation Counseling No Assessment and Plan Extracted from: Title: Intrathecal pump trial Author: Brady Mills MD Date: 12/30/16 OP note - intrathecal pump trial The procedure was performed at at [facility] H[facility]P, done within the past 30 days, was reviewed with patient prior to the procedure and patient denies significant changes. PATIENT NAME: Nadia Renner DATE OF : 52 REFERRAL SOURCE: Gabriele oMlina DATE OF PROCEDURE: 12/30/16 SURGEON: Brady Mills [...]
--- OUTSIDE RECORDS SUMMARY | 2019-04-23 01:23 | XMS REPORT | Summary of Care ---
Author Author [facility] Organization [facility] Address Unknown Phone Unavailable Encounter HQ Sudhir(LONNIE) [id number] Date(s): 02/24/17 - 03/03/17 [facility] [address] [place] [address]- Discharge Disposition: Home or Self Care Attending Physician: Mark Wade MD Admitting Physician: Mark Wade MD Vital Signs 1 2 3 Most recent to oldest [Reference Range]: 165.1 cm (02/24/17 3:18 PM) Height 98.3 DegF (03/03/17 4:00 PM) 98.1 DegF (03/03/17 12:00 PM) 98.6 DegF (03/03/17 8:00 AM) Temperature Oral [96.4-99.1 DegF] 146/79 mmHg *HI* (03/03/17 4:00 PM) 139/73 mmHg (03/03/17 12:00 PM) 139/58 mmHg (03/03/17 8:00 AM) Blood Pressure [90-140/60-90 mmHg] 18 BRMIN (03/03/17 4:00 PM) 18 BRMIN (03/03/17 12:00 PM) 18 BRMIN (03/03/17 8:00 AM) Respiratory Rate [14-20 BRMIN] 60 bpm (03/03/17 4:00 PM) 56 bpm *LOW* (03/03/17 12:00 PM) 62 bpm (03/03/17 8:00 AM) Peripheral Pulse Rate [60-100 bpm] 118.182 kg (02/25/17 3:30 AM) 118.182 kg (02/24/17 3:18 PM) Weight 43.36 m2 (02/24/17 3:18 PM) Body Mass Index Problem List Condition Effective Dates Status Health Status Informant Acquired Active hypothyroidism(Confi rmed) Anxiety(Confirmed) Resolved Diabetes(Confirmed) Active 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) Fibromyalgia(Confirm Active ed) GERD Resolved (gastroesophageal reflux disease)(Confirmed) Chronic Resolved gout(Confirmed) Hx of thyroid Active cancer(Confirmed) History of thyroid Resolved cancer(Confirmed) Hypertension(Confirm Active ed) Depression(Confirmed Resolved ) Osteoarthritis(Confi Active rmed) Elevated serum Active creatinine(Confirmed ) Allergies, Adverse Reactions, Alerts Substance Reaction Severity Status adhesive tape Active Advair Diskus1 Active amitriptyline2 Active amoxicillin3, 4 Active aspertame Active aspirin5 Active Augmentin6, 7 Active baclofen8 Active Betadine9 Active Rrvvny99 Active Celestone Active diphtheria-tetanus Active vwbgpuh62 vobjxqjhszfe14 Active iodine topical Active Viznxz61, 14 Active Vbnlsie64 Active Lopid16 Active Akyqtm74 Active Norco18 Active FRSLMm02 Active nutrasweet Active Other Food Jmymaci69 Active tqnlxwdmivq95, 22 Active Xwruwtad74 Active Jrkvnmgw41 Active Pro-Rvloveps41 Active Wwnkiw50 Active Pansgby82 Active Wehmdn74 Active GELgstrd00 Active tetanus vrcuew27 Active afvkbyeerdlnr08 Active Qenyst58 Active Zetia33 Active Zocor34 Active 1Patient endorses "neurologic problems." 2Muscle tremors per patient. 3Patient tolerated cefepime. 4Diffuse itching per patient. 5Patient endorses "wheezing and diaphramatic spasms, throat closing up as well as gastritis." 6Patient tolerated cefepime. 7Diffuse itching per patient. 8Muscle tremors and jerking per patient. 9Rash and itching per patient. 10Itching and rash per patient. 11Rash and swelling at injection site per patient. 12Itching and rash per patient. 13Patient tolerated cefepime. 14Diffuse itching with vomiting per patient. 15Muscle pain, weakness and dark urine per patient. 16Muscle pain per patient. 17Muscle tremors and jerking per patient. 18Itching per patient. 19Patient endorses "wheezing and diaphramatic spasms, throat closing up as well as gastritis." 20splenda 21Patient tolerated cefepime. 22Unspecified agent. Patient endorsed diffuse itching for "penicillins." 23Vomiting per patient. 24Tachycardia per patient. 25Unknown reaction per patient. 26Muscle tremors per patient. 27Unknown reaction per patient. 28Itching and rash per patient. 29Unknown reaction per patient. 30Rash and swelling at injection site per patient. 31Diffuse itching per patient. 32Rash, itching, headaches, and irregular heartbeats per patient. 33Muscle weakness, pain, wheezing per patient. 34Muscle weakness and pain, as well as wheezing per patient. Medications 1/2NS + KCL 20mEq/L 1000ml (Premix) 1,000 mL 1,000 mL, Rate: 75 ml/hr, Infuse over: 13.3 hr, Route: IV, Dosing Weight 118.182 kg, Total Volume: 1,000, Start date: 02/26/17 14:08:00 CDT, Duration: 30 day, S top date: 03/28/17 14:07:00 CDT Notes: PREMIX IV - Do Not AlterWASTE: F/P - Sink; E - Municipal Trash Bin Start Date: 02/26/17 Stop Date: 02/27/17 Status: Discontinued acetaminophen 650 mg, 2 tab, Route: PO, Drug form: TAB, Q4H, Dosing Weight 118.182, kg, PRN Pa in 1-3/Temp > 100.4 F, Start date: 02/24/17 17:50:00 CDT, Duration: 30 day, Stop date: 03/26/17 17:49:00 CDT Notes: Do not exceed 4 gm/day. (Same as: Tylenol) Start Date: 02/24/17 Stop Date: 03/03/17 Status: Discontinued acetaminophen-codeine 300 mg-30 mg oral tablet 1 tab, Route: PO, Drug Form: TAB, Q6H, PRN Pain Score 4-6, Start date: 02/26/17 16:26:00 CDT, Duration: 30 day, Stop date: 03/28/17 16:25:00 CDT Notes: Do not exceed 4gm/day of acetaminophen. (Same as: Tylenol with Codeine # 3) Start Date: 02/26/17 Stop Date: 02/26/17 Status: Voided With Results allopurinol 300 mg, 1 tab, Route: PO, Drug form: TAB, Daily, Dosing Weight 118.182, kg, Star t date: 02/26/17 9:00:00 CDT, Duration: 30 day, Stop date: 03/27/17 9:00:00 CDT Notes: (Same as: Zyloprim) Start Date: 02/26/17 Stop Date: 03/03/17 Status: Discontinued alteplase 2 mg injection 1 mg, 1 mL, Route: INJ, Drug form: INJ, ONCE, Dosing Weight 118.182, kg, Start d ate: 02/27/17 20:43:00 CDT, Stop date: 02/27/17 20:43:00 CDT, Occluded CVAD < 7 Kyr[place]z Notes: "Syringe for catheter clearance or interventional radiology use.Reconstit herman each vial of Cathflo Activase with 2.2 ml Sterile Water resulting in a 1 mg/ ml solution. (Same as: Activase) MEDICATION WASTE Product Size: 2 mgProd uct Wasted: ___ mg Start Date: 02/27/17 Stop Date: 02/27/17 Status: Completed Ancef 2 gm, 100 mL, Route: IVPB, Drug form: INJ, ABXQ8H, Dosing Weight 118.182, kg, Pr iority: STAT, Start date: 03/02/17 15:26:00 CDT, Duration: 30 day, Stop date: 7:26:00 CDT, ABX Indication: LINE DRIVER Infection/Epidural Abcess Notes: Same as: Ancef Start Date: 03/02/17 Stop Date: 03/03/17 Status: Discontinued ANES acetaminophen 1,000 mg, Route: IVPB, Drug form: INJ, ONCE, Dosing Weight 118.182, kg, PRN Pain Score 1-3, Start date: 02/26/17 13:46:00 CDT, Duration: 1 doses or times, Stop date: Limited # of times Start Date: 02/26/17 Stop Date: 02/26/17 Status: Completed ANES dexamethasone 4 mg, Route: IVP, ONCE, Dosing Weight 118.182, kg, PRN Nausea & Vomiting, Start date: 02/26/17 13:46:00 CDT Start Date: 02/26/17 Stop Date: 02/26/17 Status: Discontinued ANES flumazenil 0.2 mg, Route: IVP, PRN, Dosing Weight 118.182, kg, PRN Benzodiazepine Reversal, Initial dose, Start date: 02/26/17 13:46:00 CDT, Duration: 30 day, Stop date: 0 03/28/17 13:45:00 CDT Start Date: 02/26/17 Stop Date: 02/26/17 Status: Discontinued ANES labetalol 10 mg, Route: IVP, Q5Min, Dosing Weight 118.182, kg, PRN Elevated BP, Start date : 02/26/17 13:46:00 CDT, Duration: 5 doses or times, Stop date: Limited # of donavon es Start Date: 02/26/17 Stop Date: 02/26/17 Status: Discontinued ANES meperidine 12.5 mg, Route: IVP, Q30Min, Dosing Weight 118.182, kg, PRN Other -See Comment, For shivering, Start date: 02/26/17 13:46:00 CDT, Duration: 2 doses or times, St op date: Limited # of times Start Date: 02/26/17 Stop Date: 02/26/17 Status: Discontinued ANES morphine Sulfate 4 mg, Route: IVP, Q5Min, Dosing Weight 118.182, kg, PRN Pain Score 7-10, Start d ate: 02/26/17 13:46:00 CDT, Duration: 3 doses or times, Stop date: Limited # of times Start Date: 02/26/17 Stop Date: 02/26/17 Status: Discontinued ANES morphine Sulfate 2 mg, Route: IVP, Q5Min, Dosing Weight 118.182, kg, PRN Pain Score 4-6, Start da te: 02/26/17 13:46:00 CDT, Duration: 5 doses or times, Stop date: Limited # of t imes Start Date: 02/26/17 Stop Date: 02/26/17 Status: Discontinued ANES naloxone 0.4 mg, Route: IVP, Q2MIN, Dosing Weight 118.182, kg, PRN Narcotic Reversal, Sta rt date: 02/26/17 13:46:00 CDT, Duration: 8 doses or times, Stop date: Limited # of times Start Date: 02/26/17 Stop Date: 02/26/17 Status: Discontinued ANES ondansetron 4 mg, Route: IVP, ONCE, Dosing Weight 118.182, kg, PRN Nausea & Vomiting, Start date: 02/26/17 13:46:00 CDT Start Date: 02/26/17 Stop Date: 02/26/17 Status: Discontinued ANES promethazine 6.25 mg, Route: IVPB, ONCE, Dosing Weight 118.182, kg, PRN Nausea & Vomiting, Start date: 02/26/17 13:46:00 CDT Start Date: 02/26/17 Stop Date: 02/26/17 Status: Discontinued Benadryl 25 mg, 1 cap, Route: PO, Drug form: CAP, Q4H, Dosing Weight 118.182, kg, Priorit y: NOW, Start date: 03/02/17 19:50:00 CDT, Duration: 3 doses or times, Stop date : 03/03/17 0:00:00 CDT Notes: (Same as: Benadryl) Start Date: 03/02/17 Stop Date: 03/03/17 Status: Completed ceFAZolin 2 g/100 mL-NaCl 0.9% intravenous solution 2 mp=810 mL, IVPB, [id number], 0 Refill(s) Start Date: 03/03/17 Status: Ordered cefepime + sodium chloride 0.9% INJ 100 mL 2 gm, Route: IVPB, [id number], Dosing Weight 118.182, kg, (CrCl 30 - 49 ml/min, LINE DRIVER infection or neutropenic fever), Priority: NOW, Start date: 02/24/17 18:56:00 C DT, Duration: 30 day, Stop date: 03/26/17 6:56:00 CDT, ABX Indication: LINE DRIVER Infec tion/Epidur... Notes: (Same as: Maxipime) MEDICATION WASTE Product Size: 2000 mgProduc t Wasted: ___ mg Start Date: 02/24/17 Stop Date: 03/02/17 Status: Discontinued cefepime + sodium chloride 0.9% INJ 100 mL 2 gm, Route: IVPB, ONCE, Dosing Weight 118.182, kg, Priority: STAT, Start date: 02/24/17 16:50:00 CDT, Duration: 1 doses or times, Stop date: 02/24/17 16:50:00 CDT, ABX Indication: Bacteremia Notes: (Same as: Maxipime) MEDICATION WASTE Product Size: 1999 mgProduc t Wasted: ___ mg Start Date: 02/24/17 Stop Date: 02/24/17 Status: Ordered cefepime + sodium chloride 0.9% INJ 100 mL 2 gm, Route: IVPB, [id number], Dosing Weight 118.182, kg, (CrCl 10 - 29 ml/min, LINE DRIVER infection or neutropenic fever), Start date: 02/25/17 17:00:00 CDT, Duration: 7 day, Stop date: 03/03/17 17:00:00 CDT, ABX Indication: Skin/Soft Tissue Infecti on Notes: (Same as: Maxipime) MEDICATION WASTE Product Size: 1999 mgProduc t Wasted: ___ mg Start Date: 02/25/17 Stop Date: 02/24/17 Status: Canceled cefepime + sodium chloride 0.9% INJ 100 mL 2 gm, Route: IVPB, [id number], Dosing Weight 118.182, kg, (CrCl 10 - 29 ml/min, LINE DRIVER infection or neutropenic fever), Start date: 02/24/17 19:00:00 CDT, Duration: 7 day, Stop date: 03/02/17 19:00:00 CDT, ABX Indication: Skin/Soft Tissue Infecti on Notes: (Same as: Maxipime) MEDICATION WASTE Product Size: 1999 mgProduc t Wasted: ___ mg Start Date: 02/24/17 Stop Date: 02/24/17 Status: Discontinued chromium picolinate 2,000 mg, Route: PO, Daily, Dosing Weight 118.182, kg, Start date: 02/26/17 9:00 :00 CDT, Duration: 30 day, Stop date: 03/27/17 9:00:00 CDT Start Date: 02/26/17 Stop Date: 02/25/17 Status: Deleted Colace 100 mg oral capsule 100 mg, 1 cap, Route: PO, Drug form: CAP, BID, Dosing Weight 118.182, kg, Start date: 02/26/17 17:00:00 CDT, Duration: 30 day, Stop date: 03/28/17 9:00:00 CDT Notes: (Same as: Colace) (Do Not Crush) Start Date: 02/26/17 Stop Date: 03/03/17 Status: Discontinued Dextrose 50% Syringe 25 gm, 50 mL, Route: IVP, Drug Form: INJ, Dosing Weight 118.182, kg, PRN, PRN Bl ood Glucose Results, Start date: 02/24/17 17:56:00 CDT, Duration: 30 day, Stop d ate: 03/26/17 17:55:00 CDT Start Date: 02/24/17 Stop Date: 02/25/17 Status: Discontinued Dextrose 50% Syringe 12.5 gm, 25 mL, Route: IVP, Drug Form: INJ, Dosing Weight 118.182, kg, PRN, PRN Blood Glucose Results, Start date: 02/24/17 17:56:00 CDT, Duration: 30 day, Stop date: 03/26/17 17:55:00 CDT Start Date: 02/24/17 Stop Date: 02/25/17 Status: Discontinued Dextrose 50% Syringe 12.5 gm, 25 mL, Route: IVP, Drug Form: INJ, Dosing Weight 118.182, kg, PRN, PRN Blood Glucose Results, Start date: 02/25/17 14:58:00 CDT, Duration: 30 day, Stop date: 03/27/17 14:57:00 CDT Start Date: 02/25/17 Stop Date: 03/03/17 Status: Discontinued Dextrose 50% Syringe 25 gm, 50 mL, Route: IVP, Drug Form: INJ, Dosing Weight 118.182, kg, PRN, PRN Bl ood Glucose Results, Start date: 02/25/17 14:58:00 CDT, Duration: 30 day, Stop d ate: 03/27/17 14:57:00 CDT Start Date: 02/25/17 Stop Date: 03/03/17 Status: Discontinued docusate 100 mg, 1 cap, Route: PO, Drug form: CAP, BID, Dosing Weight 118.182, kg, PRN Co nstipation, Start date: 02/24/17 17:50:00 CDT, Duration: 30 day, Stop date: 03/17 17:49:00 CDT Notes: (Same as: Colace) (Do Not Crush) Start Date: 02/24/17 Stop Date: 03/03/17 Status: Discontinued ePHEDrine (ANES) Route: IV, Drug form: INJ, ONCE, Stop date: 02/26/17 12:42:00 CDT Start Date: 02/26/17 Stop Date: 02/26/17 Status: Completed fentaNYL (ANES) Route: IV, Drug form: INJ, ONCE, Stop date: 02/26/17 12:22:00 CDT Start Date: 02/26/17 Stop Date: 02/26/17 Status: Completed gabapentin 900 mg, 3 cap, Route: PO, Drug form: CAP, TID, Dosing Weight 118.182, kg, Start date: 02/25/17 13:00:00 CDT, Duration: 30 day, Stop date: 03/27/17 9:00:00 CDT Notes: (Same as: Neurontin) Start Date: 02/25/17 Stop Date: 03/03/17 Status: Discontinued glucagon 1 mg, Route: IM, Drug form: PDR/INJ, PRN, Dosing Weight 118.182, kg, PRN Blood G lucose Results, Start date: 02/24/17 17:56:00 CDT, Duration: 30 day, Stop date: 03/26/17 17:55:00 CDT Start Date: 02/24/17 Stop Date: 02/25/17 Status: Discontinued glucagon 1 mg, Route: IM, Drug form: PDR/INJ, PRN, Dosing Weight 118.182, kg, PRN Blood G lucose Results, Start date: 02/25/17 14:58:00 CDT, Duration: 30 day, Stop date: 03/27/17 14:57:00 CDT Start Date: 02/25/17 Stop Date: 03/03/17 Status: Discontinued glycopyrrolate (ANES) Route: IV, Drug form: INJ, ONCE, Stop date: 02/26/17 14:23:00 CDT Start Date: 02/26/17 Stop Date: 02/26/17 Status: Completed guaiFENesin 200 mg, 1 tab, Route: PO, Drug form: TAB, QID, Dosing Weight 118.182, kg, Start date: 02/28/17 13:00:00 CDT, Duration: 30 day, Stop date: 03/30/17 9:00:00 CDT Notes: (Same as: Organidin NR) Start Date: 02/28/17 Stop Date: 03/03/17 Status: Discontinued hydrALAZINE 20 mg, 1 mL, Route: IVP, Drug form: INJ, Q4H, Dosing Weight 118.182, kg, PRN Vicky vated BP, Start date: 02/24/17 17:50:00 CDT, Duration: 30 day, Stop date: 17:49:00 CDT, For SBP greater than 180 Notes: (Same as: Apresoline)Push over 5 minutes Start Date: 02/24/17 Stop Date: 03/03/17 Status: Discontinued insulin aspart 2 unit, 0.02 mL, Route: SUB-Q, Drug form: SOLN, TID-Before Meals, Dosing Weight 118.182, kg, PRN Blood Glucose Results, Start date: 02/24/17 17:56:00 CDT, Durat ion: 30 day, Stop date: 03/26/17 17:55:00 CDT Notes: Roll in palms of hands gently; Do not shake vigorously. (Same as: Malena Purvis)"single patient use only"WASTE: F/P - Black; E - Municipal Trash Bin Stable f or 28 days at room temperature.Expires in days from Date Start Date: 02/24/17 Stop Date: 02/25/17 Status: Discontinued insulin aspart 6 unit, 0.06 mL, Route: SUB-Q, Drug form: SOLN, TID-Before Meals, Dosing Weight 118.182, kg, PRN Blood Glucose Results, Start date: 02/24/17 17:56:00 CDT, Durat ion: 30 day, Stop date: 03/26/17 17:55:00 CDT Notes: Roll in palms of hands gently; Do not shake vigorously. (Same as: Malena Purvis)"single patient use only"WASTE: F/P - Black; E - Municipal Trash Bin Stable f or 28 days at room temperature.Expires in days from Date Start Date: 02/24/17 Stop Date: 02/25/17 Status: Discontinued insulin aspart 4 unit, 0.04 mL, Route: SUB-Q, Drug form: SOLN, TID-Before Meals, Dosing Weight 118.182, kg, PRN Blood Glucose Results, Start date: 02/24/17 17:56:00 CDT, Durat ion: 30 day, Stop date: 03/26/17 17:55:00 CDT Notes: Roll in palms of hands gently; Do not shake vigorously. (Same as: Malena Purvis)"single patient use only"WASTE: F/P - Black; E - Municipal Trash Bin Stable f or 28 days at room temperature.Expires in days from Date Start Date: 02/24/17 Stop Date: 02/25/17 Status: Discontinued insulin aspart 10 unit, 0.1 mL, Route: SUB-Q, Drug form: SOLN, TID-Before Meals, Dosing Weight 118.182, kg, PRN Blood Glucose Results, Start date: 02/24/17 17:56:00 CDT, Durat ion: 30 day, Stop date: 03/26/17 17:55:00 CDT Notes: Roll in palms of hands gently; Do not shake vigorously. (Same as: Malena Purvis)"single patient use only"WASTE: F/P - Black; E - Municipal Trash Bin Stable f or 28 days at room temperature.Expires in days from Date Start Date: 02/24/17 Stop Date: 02/25/17 Status: Discontinued insulin aspart 8 unit, 0.08 mL, Route: SUB-Q, Drug form: SOLN, TID-Before Meals, Dosing Weight 118.182, kg, PRN Blood Glucose Results, Start date: 02/24/17 17:56:00 CDT, Durat ion: 30 day, Stop date: 03/26/17 17:55:00 CDT Notes: Roll in palms of hands gently; Do not shake vigorously. (Same as: Malena Purvis)"single patient use only"WASTE: F/P - Black; E - Municipal Trash Bin Stable f or 28 days at room temperature.Expires in days from Date Start Date: 02/24/17 Stop Date: 02/25/17 Status: Discontinued insulin aspart 6 unit, 0.06 mL, Route: SUB-Q, Drug form: SOLN, TID-Before Meals, Dosing Weight 118.182, kg, PRN Blood Glucose Results, Start date: 02/25/17 14:58:00 CDT, Durat ion: 30 day, Stop date: 03/27/17 14:57:00 CDT Notes: Roll in palms of hands gently; Do not shake vigorously. (Same as: Malena Purvis)"single patient use only"WASTE: F/P - Black; E - Municipal Trash Bin Stable f or 28 days at room temperature.Expires in days from Date Start Date: 02/25/17 Stop Date: 03/03/17 Status: Discontinued insulin aspart 3 unit, 0.03 mL, Route: SUB-Q, Drug form: SOLN, TID-Before Meals, Dosing Weight 118.182, kg, PRN Blood Glucose Results, Start date: 02/25/17 14:58:00 CDT, Durat ion: 30 day, Stop date: 03/27/17 14:57:00 CDT Notes: Roll in palms of hands gently; Do not shake vigorously. (Same as: Malena Purvis)"single patient use only"WASTE: F/P - Black; E - Municipal Trash Bin Stable f or 28 days at room temperature.Expires in days from Date Start Date: 02/25/17 Stop Date: 03/03/17 Status: Discontinued insulin aspart 4 unit, 0.04 mL, Route: SUB-Q, Drug form: SOLN, Bedtime, Dosing Weight 118.182, kg, PRN Blood Glucose Results, Start date: 02/25/17 14:58:00 CDT, Duration: 30 d ay, Stop date: 03/27/17 14:57:00 CDT Notes: Roll in palms of hands gently; Do not shake vigorously. (Same as: NovoLINO Purvis)"single patient use only"WASTE: F/P - Black; E - Municipal Trash Bin Stable f or 28 days at room temperature.Expires in days from Date Start Date: 02/25/17 Stop Date: 03/03/17 Status: Discontinued insulin aspart 9 unit, 0.09 mL, Route: SUB-Q, Drug form: SOLN, TID-Before Meals, Dosing Weight 118.182, kg, PRN Blood Glucose Results, Start date: 02/25/17 14:58:00 CDT, Durat ion: 30 day, Stop date: 03/27/17 14:57:00 CDT Notes: Roll in palms of hands gently; Do not shake vigorously. (Same as: NovoLINO G)"single patient use only"WASTE: F/P - Black; E - Municipal Trash Bin Stable f or 28 days at room temperature.Expires in days from Date Start Date: 02/25/17 Stop Date: 03/03/17 Status: Discontinued insulin aspart 12 unit, 0.12 mL, Route: SUB-Q, Drug form: SOLN, TID-Before Meals, Dosing Weight 118.182, kg, PRN Blood Glucose Results, Start date: 02/25/17 14:58:00 CDT, Dura tion: 30 day, Stop date: 03/27/17 14:57:00 CDT Notes: Roll in palms of hands gently; Do not shake vigorously. (Same as: NovoLINO G)"single patient use only"WASTE: F/P - Black; E - Municipal Trash Bin Stable f or 28 days at room temperature.Expires in days from Date Start Date: 02/25/17 Stop Date: 03/03/17 Status: Discontinued insulin aspart 15 unit, 0.15 mL, Route: SUB-Q, Drug form: SOLN, TID-Before Meals, Dosing Weight 118.182, kg, PRN Blood Glucose Results, Start date: 02/25/17 14:58:00 CDT, Dura tion: 30 day, Stop date: 03/27/17 14:57:00 CDT Notes: Roll in palms of hands gently; Do not shake vigorously. (Same as: Malena Purvis)"single patient use only"WASTE: F/P - Black; E - Municipal Trash Bin Stable f or 28 days at room temperature.Expires in days from Date Start Date: 02/25/17 Stop Date: 03/03/17 Status: Discontinued insulin aspart 2 unit, 0.02 mL, Route: SUB-Q, Drug form: SOLN, Bedtime, Dosing Weight 118.182, kg, PRN Blood Glucose Results, Start date: 02/25/17 14:58:00 CDT, Duration: 30 d ay, Stop date: 03/27/17 14:57:00 CDT Notes: Roll in palms of hands gently; Do not shake vigorously. (Same as: Malena Purvis)"single patient use only"WASTE: F/P - Black; E - Municipal Trash Bin Stable f or 28 days at room temperature.Expires in days from Date Start Date: 02/25/17 Stop Date: 03/03/17 Status: Discontinued insulin aspart 1 unit, 0.01 mL, Route: SUB-Q, Drug form: SOLN, Bedtime, Dosing Weight 118.182, kg, PRN Blood Glucose Results, Start date: 02/25/17 14:58:00 CDT, Duration: 30 d ay, Stop date: 03/27/17 14:57:00 CDT Notes: Roll in palms of hands gently; Do not shake vigorously. (Same as: Malena Purvis)"single patient use only"WASTE: F/P - Black; E - Municipal Trash Bin Stable f or 28 days at room temperature.Expires in days from Date Start Date: 02/25/17 Stop Date: 03/03/17 Status: Discontinued insulin aspart 3 unit, 0.03 mL, Route: SUB-Q, Drug form: SOLN, Bedtime, Dosing Weight 118.182, kg, PRN Blood Glucose Results, Start date: 02/25/17 14:58:00 CDT, Duration: 30 d ay, Stop date: 03/27/17 14:57:00 CDT Notes: Roll in palms of hands gently; Do not shake vigorously. (Same as: Malena Purvis)"single patient use only"WASTE: F/P - Black; E - Municipal Trash Bin Stable f or 28 days at room temperature.Expires in days from Date Start Date: 02/25/17 Stop Date: 03/03/17 Status: Discontinued isosorbide mononitrate 60 mg, 1 tab, Route: PO, Drug form: ERTAB, QAM, Dosing Weight 118.182, kg, Prior ity: NOW, Start date: 02/25/17 9:03:00 CDT, Duration: 30 day, Stop date: 7 9:00:00 CDT Notes: (Same as:Imbrad)"Do Not Crush" Take on empty stomach/ full glass of water . Do not crush Start Date: 02/25/17 Stop Date: 03/03/17 Status: Discontinued isosorbide mononitrate 30 mg, 1 tab, Route: PO, Drug form: ERTAB, QPM, Dosing Weight 118.182, kg, Start date: 02/25/17 17:00:00 CDT, Duration: 30 day, Stop date: 03/26/17 17:00:00 CDT Notes: (Same as:Imseveror)"Do Not Crush" Take on empty stomach/ full glass of water . Do not crush Start Date: 02/25/17 Stop Date: 03/03/17 Status: Discontinued Lantus 100 units/mL 62 unit, Route: SUB-Q, Drug form: SOLN, Bedtime, Dosing Weight 118.182, kg, Star t date: 02/25/17 21:00:00 CDT, Duration: 30 day, Stop date: 03/26/17 21:00:00 CD T Start Date: 02/25/17 Stop Date: 02/25/17 Status: Deleted Lasix 20 mg oral tablet 20 mg, 1 tab, Route: PO, Drug form: TAB, Daily, Dosing Weight 118.182, kg, Start date: 03/01/17 9:00:00 CDT, Duration: 30 day, Stop date: 03/30/17 9:00:00 CDT Notes: (Same as: Lasix) May cause GI upset. Give with food or milk. Start Date: 03/01/17 Stop Date: 03/03/17 Status: Discontinued Levemir FlexPen 62 unit, 0.62 mL, Route: SUB-Q, Drug form: INJ, Bedtime, Start date: 02/25/17 21 :00:00 CDT, Duration: 30 day, Stop date: 03/26/17 21:00:00 CDT Notes: Same as LevemirDo not hold insulin without contacting prescriberWASTE: F/ P - Black; E - [employer] Trash Bin "single patient use only" Start Date: 02/25/17 Stop Date: 03/03/17 Status: Discontinued levothyroxine 150 microgram, 1 tab, Route: PO, Drug form: TAB, [id number], Dosing Weight 118.182, kg, Start date: 02/28/17 6:30:00 CDT, Duration: 30 day, Stop date: 03/29/17 6:30 :00 CDT Notes: Take 1 hour before or 2 hours after meal; Enteral feeds may interefere wi th the absorption of this medication. (Same as: Levothroid) Start Date: 02/28/17 Stop Date: 03/03/17 Status: Discontinued lidocaine (ANES) Route: IV, Drug form: INJ, ONCE, Stop date: 02/26/17 12:22:00 CDT Start Date: 02/26/17 Stop Date: 02/26/17 Status: Completed liothyronine 25 microgram, 1 tab, Route: PO, Drug form: TAB, Daily, Dosing Weight 118.182, kg , Priority: NOW, Start date: 02/25/17 9:04:00 CDT, Duration: 30 day, Stop date: 03/27/17 9:00:00 CDT Notes: (Same as: Cytomel) Start Date: 02/25/17 Stop Date: 03/03/17 Status: Discontinued LR 1000 mL INJ (ANES) Route: IV, Total Volume: 1,000, Start date: 02/26/17 11:21:00 CDT, Stop date: 12:21:00 CDT Start Date: 02/26/17 Stop Date: 02/26/17 Status: Completed magnesium citrate 1.745 g/30 mL oral liquid 150 ml, Route: PO, Drug Form: LIQ, Dosing Weight 118.182, kg, ONCE, Start date: 02/28/17 11:55:00 CDT, Stop date: 02/28/17 11:55:00 CDT Notes: (Same as: Citrate of Magnesia)Concentration: 1.745 gm / 30 mL Start Date: 02/28/17 Stop Date: 02/28/17 Status: Completed melatonin 3 mg, 1 tab, Route: PO, Drug form: TAB, Bedtime, Dosing Weight 118.182, kg, PRN Sleep, Start date: 02/24/17 17:50:00 CDT, Duration: 30 day, Stop date: 03/26/17 17:49:00 CDT Notes: (Same as: Melatonin) Start Date: 02/24/17 Stop Date: 03/03/17 Status: Discontinued metolazone 2.5 mg oral tablet 2.5 mg, 1 tab, Route: PO, Drug form: TAB, Q-M-W-F, Dosing Weight 118.182, kg, Pr iority: NOW, Start date: 02/25/17 9:04:00 CDT, Duration: 30 day, Stop date: 03/17 09/02 9:00:00 CDT Notes: (Same as: Zaroxolyn) Start Date: 02/25/17 Stop Date: 02/25/17 Status: Discontinued metoprolol extended release 25 mg, 1 tab, Route: PO, Drug form: ERTAB, Daily, Start date: 02/26/17 9:00:00 C DT, Duration: 30 day, Stop date: 03/27/17 9:00:00 CDT Notes: (Same as: Toprol XL) Do Not Crush Start Date: 02/26/17 Stop Date: 02/25/17 Status: Canceled metoprolol tartrate 50 mg, 1 tab, Route: PO, Drug form: TAB, Q12H, Dosing Weight 118.182, kg, Start date: 02/25/17 21:00:00 CDT, Duration: 30 day, Stop date: 03/27/17 9:00:00 CDT Notes: (Same as: Lopressor) Start Date: 02/25/17 Stop Date: 03/03/17 Status: Discontinued midazolam (ANES) Route: IV, Drug form: SOLN, ONCE, Stop date: 02/26/17 13:07:00 CDT Start Date: 02/26/17 Stop Date: 02/26/17 Status: Completed morphine Sulfate 6 mg, 1.5 mL, Route: IVP, Drug form: INJ, Q4H, Dosing Weight 118.182, kg, PRN Pa in Score 7-10, Start date: 02/27/17 14:44:00 CDT, Duration: 30 day, Stop date: 0 03/29/17 14:43:00 CDT Notes: (Same as:MORPhine Sulfate) Start Date: 02/27/17 Stop Date: 03/03/17 Status: Discontinued morphine Sulfate 2 mg, 0.5 mL, Route: IVP, Drug form: INJ, Q4H, Dosing Weight 118.182, kg, PRN Pa in Score 7-10, Start date: 02/24/17 18:17:00 CDT, Duration: 30 day, Stop date: 0 03/26/17 18:16:00 CDT Notes: (Same as:MORPhine Sulfate) Start Date: 02/24/17 Stop Date: 02/25/17 Status: Discontinued morphine Sulfate 2 mg, 0.5 mL, Route: IVP, Drug form: INJ, ONCE, Dosing Weight 118.182, kg, Start date: 02/25/17 0:47:00 CDT, Stop date: 02/25/17 0:47:00 CDT Notes: (Same as:MORPhine Sulfate) Start Date: 02/25/17 Stop Date: 02/25/17 Status: Completed morphine Sulfate 4 mg, 1 mL, Route: IVP, Drug form: INJ, Q4H, Dosing Weight 118.182, kg, PRN Pain Score 7-10, Start date: 02/25/17 15:00:00 CDT, Duration: 30 day, Stop date: 07/03 14:59:00 CDT Notes: (Same as:MORPhine Sulfate) Start Date: 02/25/17 Stop Date: 02/27/17 Status: Discontinued neostigmine (ANES) Route: IV, Drug form: INJ, ONCE, Stop date: 02/26/17 14:23:00 CDT Start Date: 02/26/17 Stop Date: 02/26/17 Status: Completed NovoLOG 6 unit, 0.06 mL, Route: SUB-Q, Drug form: SOLN, TID-Before Meals, Dosing Weight 118.182, kg, Start date: 02/25/17 16:30:00 CDT, Duration: 30 day, Stop date: 07/03 11:30:00 CDT Notes: Roll in palms of hands gently; Do not shake vigorously. (Same as: Malena Purvis)"single patient use only"WASTE: F/P - Black; E - Municipal Trash Bin Stable f or 28 days at room temperature.Expires in days from Date Start Date: 02/25/17 Stop Date: 03/03/17 Status: Discontinued Nucynta 50 mg oral tablet 50 mg=1 tab, PO, Q8H, PRN for pain, 0 Refill(s) Start Date: 02/24/17 Stop Date: 03/03/17 Status: Ordered ondansetron 4 mg, 2 mL, Route: IVP, Drug form: INJ, Q6H, Dosing Weight 118.182, kg, PRN Naus ea & Vomiting, Start date: 02/24/17 17:50:00 CDT, Duration: 30 day, Stop date: 03/26/17 17:49:00 CDT Notes: (Same as: Diana) MEDICATION WASTE Product Size: 4 mgProduct Was jaye: ___ mg Start Date: 02/24/17 Stop Date: 03/03/17 Status: Discontinued ondansetron 4 mg, 2 mL, Route: IVP, Drug form: INJ, ONCE, Dosing Weight 118.182, kg, Priorit y: STAT, Start date: 02/24/17 16:46:00 CDT, Stop date: 02/24/17 16:46:00 CDT Notes: (Same as: Diana) MEDICATION WASTE Product Size: 4 mgProduct Was jaye: ___ mg Start Date: 02/24/17 Stop Date: 02/24/17 Status: Completed Pepcid 20 mg oral tablet 20 mg, 1 tab, Route: PO, Drug form: TAB, Q24H, Dosing Weight 118.182, kg, Start date: 02/26/17 17:00:00 CDT, Duration: 30 day, Stop date: 03/27/17 17:00:00 CDT Notes: (Same as: Pepcid) Start Date: 02/26/17 Stop Date: 03/03/17 Status: Discontinued Phenergan 12.5 mg, 1 tab, Route: PO, Drug form: TAB, ONCE, Dosing Weight 118.182, kg, PRN Nausea & Vomiting, Priority: STAT, Start date: 02/25/17 21:59:00 CDT Notes: (Same as: Phenergan) Start Date: 02/25/17 Stop Date: 02/25/17 Status: Completed propofol (ANES) Route: IV, Drug form: INJ, ONCE, Stop date: 02/26/17 12:22:00 CDT Start Date: 02/26/17 Stop Date: 02/26/17 Status: Completed rocuronium (ANES) Route: IV, Drug form: INJ, ONCE, Stop date: 02/26/17 12:27:00 CDT Start Date: 02/26/17 Stop Date: 02/26/17 Status: Completed Saline Flush 0.9% 10 ml, Route: IVP, Drug Form: INJ, Dosing Weight 118.182, kg, PRN, PRN Line Flus h, Start date: 02/24/17 17:50:00 CDT, Duration: 30 day, Stop date: 03/26/17 17:4 9:00 CDT Notes: (Same as: BD Posiflush) Start Date: 02/24/17 Stop Date: 03/03/17 Status: Discontinued Sodium Chloride 0.9% (Bolus) IV 1,000 mL, 1000 ml/hr, Infuse Over: 1 hr, Route: IV, 1,000, Drug form: INJ, ONCE, Priority: STAT, Dosing Weight 118.182 kg, Start date: 02/24/17 16:46:00 CDT, Du ration: 1 doses or times, Stop date: 02/24/17 16:46:00 CDT Start Date: 02/24/17 Stop Date: 02/24/17 Status: Completed sodium chloride 0.9% 1000 ml INJ 1,000 mL 1,000 mL, Rate: 125 ml/hr, Infuse over: 8 hr, Route: IV, Dosing Weight 118.182 k g, Total Volume: 1,000, Start date: 02/24/17 17:50:00 CDT, Duration: 30 day, Sto p date: 03/26/17 17:49:00 CDT Start Date: 02/24/17 Stop Date: 02/25/17 Status: Discontinued sodium chloride 0.9% INJ 250 mL 250 mL, Rate: outbound call center representative for use with blood product administration, Dosing Weight 1 18.182, kg, Route: IV, Total Volume: 250, Start Date: 02/25/17 16:34:00 CDT, Dur ation: 30 day, Stop date: 03/27/17 16:33:00 CDT, Replace Every: 24 hr Start Date: 02/25/17 Stop Date: 03/03/17 Status: Discontinued spironolactone 25 mg, 1 tab, Route: PO, Drug form: TAB, Daily, Dosing Weight 118.182, kg, Start date: 02/28/17 9:00:00 CDT, Duration: 30 day, Stop date: 03/29/17 9:00:00 CDT Notes: (Same As: Aldactone) Start Date: 02/28/17 Stop Date: 03/03/17 Status: Discontinued spironolactone 50 mg, 1 tab, Route: PO, Drug form: TAB, Q-M-W-F, Dosing Weight 118.182, kg, Joslyn ority: NOW, Start date: 02/25/17 9:05:00 CDT, Duration: 30 day, Stop date: 03/27 9:00:00 CDT Notes: (Same As: Aldactone) Start Date: 02/25/17 Stop Date: 02/27/17 Status: Discontinued Synthroid 175 microgram, 1 tab, Route: PO, Drug form: TAB, Daily, Dosing Weight 118.182, k g, Priority: NOW, Start date: 02/25/17 9:04:00 CDT, Duration: 30 day, Stop date: 03/27/17 6:30:00 CDT Notes: Take 1 hour before or 2 hours after meal; Enteral feeds may interefere wi th the absorption of this medication. (Same as: Levothroid, Synthroid) Start Date: 02/25/17 Stop Date: 02/27/17 Status: Discontinued temazepam 15 mg oral capsule 15 mg=1 cap, PO, Bedtime, PRN Sleep, # 14 tab, 0 Refill(s) Start Date: 02/25/17 Stop Date: 03/11/17 Status: Ordered tizanidine 2 mg, 0.5 tab, Route: PO, Drug form: TAB, Bedtime, Dosing Weight 118.182, kg, St art date: 02/25/17 21:00:00 CDT, Duration: 30 day, Stop date: 03/26/17 21:00:00 CDT Notes: (Same As: Zanaflex) Start Date: 02/25/17 Stop Date: 03/03/17 Status: Discontinued tizanidine 4 mg, 1 tab, Route: PO, Drug form: TAB, Bedtime, Dosing Weight 118.182, kg, PRN as needed for muscle spasm, Start date: 02/25/17 9:05:00 CDT, Duration: 30 day, Stop date: 03/27/17 9:04:00 CDT Notes: (Same As: Zanaflex) Start Date: 02/25/17 Stop Date: 03/03/17 Status: Discontinued tizanidine 4 mg, 1 tab, Route: PO, Drug form: TAB, Q8H, Dosing Weight 118.182, kg, PRN as n eeded for muscle spasm, Start date: 02/28/17 16:27:00 CDT, Duration: 30 day, Sto p date: 03/30/17 16:26:00 CDT Notes: (Same As: Zanaflex) Start Date: 02/28/17 Stop Date: 03/03/17 Status: Discontinued tizanidine 4 mg oral tablet 4 mg=1 tab, PO, Bedtime, PRN for muscle spasm, # 30 tab, 0 Refill(s) Start Date: 02/24/17 Status: Ordered trazodone 50 mg, 1 tab, Route: PO, Drug form: TAB, Bedtime, Dosing Weight 118.182, kg, PRN Insomnia, Start date: 02/24/17 17:50:00 CDT, Duration: 30 day, Stop date: 03/26 17:49:00 CDT Notes: (Same As: Sofia) Start Date: 02/24/17 Stop Date: 03/03/17 Status: Discontinued trazodone 100 mg oral tablet 100 mg, 2 tab, Route: PO, Drug form: TAB, Bedtime, Dosing Weight 118.182, kg, St art date: 02/25/17 21:00:00 CDT, Duration: 30 day, Stop date: 03/26/17 21:00:00 CDT Notes: (Same As: Sofia) Start Date: 02/25/17 Stop Date: 03/03/17 Status: Discontinued Tylenol with Codeine #3 oral tablet 1 tab, PO, Q6H, PRN Pain Score 4-6, X 7 day, # 28 tab, 0 Refill(s) Start Date: 03/03/17 Stop Date: 03/10/17 Status: Ordered Tylenol with Codeine #3 oral tablet 2 tab, Route: PO, Drug Form: TAB, Dosing Weight 118.182, kg, Q6H, PRN Pain Score 4-6, Start date: 02/26/17 16:50:00 CDT, Duration: 30 day, Stop date: 03/28/17 1 6:49:00 CDT Notes: Do not exceed 4gm/day of acetaminophen. (Same as: Tylenol with Codeine # 3) Start Date: 02/26/17 Stop Date: 03/03/17 Status: Discontinued Tylenol with Codeine #4 oral tablet 1 tab, Route: PO, Drug Form: TAB, Dosing Weight 118.182, kg, Q6H, PRN Pain Score 4-6, Start date: 02/26/17 16:16:00 CDT, Duration: 30 day, Stop date: 03/28/17 1 6:15:00 CDT Start Date: 02/26/17 Stop Date: 02/26/17 Status: Discontinued vancomycin 1,500 mg, Route: IVPB, Drug form: INJ, [id number], Dosing Weight 118.182, kg, Start date: 02/24/17 18:00:00 CDT, Duration: 7 day, Stop date: 03/02/17 18:00:00 CDT, ABX Indication: Skin/Soft Tissue Infection Start Date: 02/24/17 Stop Date: 02/24/17 Status: Deleted vancomycin 1.5 gm, 250 mL, Route: IVPB, Drug form: INJ, [id number], Start date: 02/28/17 17:00 :00 CDT, Duration: 30 day, Stop date: 03/29/17 17:00:00 CDT, ABX Indication: Rupa teremia Notes: TIME CRITICAL MEDICATIONSame as: Vancocin-NS (premixed)Infusion rate< 1000 mg: infuse over 1 [id number] - 1500 mg: infuse over 1.5 [id number] - 2000 mg: infuse over 2 hours> 2001 mg: infuse over 2.5 hours Start Date: 02/28/17 Stop Date: 02/28/17 Status: Discontinued vancomycin 1,772.73 mg, Route: IVPB, Drug form: INJ, ONCE, Dosing Weight 118.182, kg, Prior ity: STAT, Start date: 02/24/17 16:50:00 CDT, Duration: 1 doses or times, Stop d ate: 02/24/17 16:50:00 CDT, ABX Indication: Bacteremia Start Date: 02/24/17 Stop Date: 02/24/17 Status: Deleted vancomycin + sodium chloride 0.9% 500 mL INJ (for IV set) 500 mL 1,750 mg, Route: IVPB, [id number], Start date: 02/25/17 17:00:00 CDT, Duration: 30 day, Stop date: 03/26/17 17:00:00 CDT, ABX Indication: Bacteremia Notes: TIME CRITICAL MEDICATION(Same As: Vancocin)Infusion rate< 1000 mg: infuse over 1 [id number] - 1500 mg: infuse over 1.5 [id number] - 2000 mg: infuse over 2 hours> 2001 mg: infuse over 2.5 hours MEDICATION WASTE Product Size: 1000 mgProduct Wasted: ___ mg Start Date: 02/25/17 Stop Date: 02/27/17 Status: Discontinued vancomycin + sodium chloride 0.9% 500 mL INJ (for IV set) 500 mL 2,000 mg, Route: IVPB, Q48H, Start date: 02/26/17 17:00:00 CDT, Duration: 30 day , Stop date: 03/26/17 17:00:00 CDT, ABX Indication: Bacteremia Notes: TIME CRITICAL MEDICATION(Same As: Vancocin)Infusion rate< 1000 mg: infuse over 1 [id number] - 1500 mg: infuse over 1.5 [id number] - 2000 mg: infuse over 2 hours> 2001 mg: infuse over 2.5 hours MEDICATION WASTE Product Size: 1000 mgProduct Wasted: ___ mg Start Date: 02/26/17 Stop Date: 02/25/17 Status: Discontinued vancomycin + sodium chloride 0.9% 500 mL INJ (for IV set) 500 mL 1,750 mg, Route: IVPB, ONCE, Start date: 02/24/17 16:54:00 CDT, Stop date: 02/24 16:54:00 CDT, ABX Indication: Skin/Soft Tissue Infection Notes: TIME CRITICAL MEDICATION(Same As: Vancocin)Infusion rate< 1000 mg: infuse over 1 [id number] - 1500 mg: infuse over 1.5 [id number] - 2000 mg: infuse over 2 hours> 2001 mg: infuse over 2.5 hours MEDICATION WASTE Product Size: 1000 mgProduct Wasted: ___ mg Start Date: 02/24/17 Stop Date: 02/24/17 Status: Completed vancomycin + sodium chloride 0.9% 500 mL INJ (for IV set) 500 mL 1,750 mg, Route: IVPB, Q24H, Start date: 02/28/17 19:00:00 CDT, Duration: 30 day , Stop date: 03/29/17 19:00:00 CDT, ABX Indication: Bacteremia Notes: TIME CRITICAL MEDICATION(Same As: Vancocin)Infusion rate< 1000 mg: infuse over 1 [id number] - 1500 mg: infuse over 1.5 [id number] - 2000 mg: infuse over 2 hours> 2001 mg: infuse over 2.5 hours MEDICATION WASTE Product Size: 1000 mgProduct Wasted: ___ mg Start Date: 02/28/17 Stop Date: 03/02/17 Status: Discontinued Vancomycin Pharmacy Dosing 1 ea, Route: MISC, ONCALL, Dosing Weight 118.182, kg, Start date: 02/24/17 18:00 :00 CDT, day, Stop date: 02/24/17 18:00:00 CDT, Pharmacy to dose, ABX Indication : Skin/Soft Tissue Infection Start Date: 02/24/17 Stop Date: 02/24/17 Status: Deleted Vitamin D3 10,000 IntlUnit, 10 tab, Route: PO, Drug form: TAB, Daily, Dosing Weight 118.182 , kg, Start date: 02/26/17 9:00:00 CDT, Duration: 30 day, Stop date: 03/27/17 9: 00:00 CDT Notes: Same as : Vitamin D3 Start Date: 02/26/17 Stop Date: 03/03/17 Status: Discontinued Zofran 4 mg, 1 tab, Route: PO, Drug form: TAB, Q8H, Dosing Weight 118.182, kg, PRN Naus ea, Start date: 02/26/17 14:08:00 CDT, Duration: 30 day, Stop date: 03/28/17 14: 07:00 CDT Notes: (Same as: Zofran) Start Date: 02/26/17 Stop Date: 03/03/17 Status: Discontinued Zofran 4 mg, 2 mL, Route: IV, Drug form: INJ, Q8H, Dosing Weight 118.182, kg, PRN Nause a, Start date: 02/26/17 14:08:00 CDT, Duration: 30 day, Stop date: 03/28/17 14:0 7:00 CDT Notes: (Same as: Zofran) MEDICATION WASTE Product Size: 4 mgProduct Was jaye: ___ mg Start Date: 02/26/17 Stop Date: 03/03/17 Status: Discontinued Results BLOOD BANK RESULTS 1 2 3 Most recent to oldest [Reference Range]: A POS *Unknown* (02/25/17 5:02 PM) ABO/Rh Negative (02/25/17 5:02 PM) Antibody Scrn ELECTROLYTES 1 2 3 Most recent to oldest [Reference Range]: 140 mEq/L (03/03/17 4:39 AM) 140 mEq/L (03/02/17 4:03 AM) 139 mEq/L (03/01/17 3:46 AM) Sodium Lvl [135-145 mEq/L] 4.3 mEq/L (03/03/17 4:39 AM) 4.4 mEq/L (03/02/17 4:03 AM) 4.3 mEq/L (03/01/17 3:46 AM) Potassium Lvl [3.5-5.1 mEq/L] 104 mEq/L (03/03/17 4:39 AM) 103 mEq/L (03/02/17 4:03 AM) 102 mEq/L (03/01/17 3:46 AM) Chloride Lvl [95-109 mEq/L] 32 mEq/L (03/03/17 4:39 AM) 33 mEq/L *HI* (03/02/17 4:03 AM) 33 mEq/L *HI* (03/01/17 3:46 AM) CO2 [24-32 mEq/L] 8.3 mEq/L *LOW* (03/03/17 4:39 AM) 8.4 mEq/L *LOW* (03/02/17 4:03 AM) 8.3 mEq/L *LOW* (03/01/17 3:46 AM) AGAP [10.0-20.0 mEq/L] CHEM PANEL 1 2 3 Most recent to oldest [Reference Range]: 1.20 mg/dL (03/03/17 4:39 AM) 1.10 mg/dL (03/02/17 4:03 AM) 1.00 mg/dL (03/01/17 3:46 AM) Creatinine Lvl [0.50-1.40 mg/dL] 48 mL/min/1.73m2 1 *NA* (03/03/17 4:39 AM) 53 mL/min/1.73m2 2 *NA* (03/02/17 4:03 AM) 59 mL/min/1.73m2 3 *NA* (03/01/17 3:46 AM) eGFR 13 mg/dL (03/03/17 4:39 AM) 15 mg/dL (03/02/17 4:03 AM) 17 mg/dL (03/01/17 3:46 AM) BUN [7-22 mg/dL] 22 (02/25/17 3:24 AM) 20 (02/24/17 4:12 PM) B/C Ratio [6-25] 86 mg/dL (03/03/17 4:39 AM) 101 mg/dL *HI* (03/02/17 4:03 AM) 149 mg/dL *HI* (03/01/17 3:46 AM) Glucose Lvl [70-99 mg/dL] 6.4 mg/dL (02/27/17 5:51 AM) Uric Acid [2.5-7.0 mg/dL] 7.1 g/dL (02/25/17 3:24 AM) 7.7 g/dL (02/24/17 4:12 PM) Total Protein [6.4-8.4 g/dL] 2.5 g/dL *LOW* (02/25/17 3:24 AM) 2.7 g/dL *LOW* (02/24/17 4:12 PM) Albumin Lvl [3.5-5.0 g/dL] 4.6 g/dL *HI* (02/25/17 3:24 AM) 5.0 g/dL *HI* (02/24/17 4:12 PM) Globulin [2.7-4.2 g/dL] 0.5 *LOW* (02/25/17 3:24 AM) 0.5 *LOW* (02/24/17 4:12 PM) A/G Ratio [0.7-1.6] 8.5 mg/dL (03/03/17 4:39 AM) 8.4 mg/dL *LOW* (03/02/17 4:03 AM) 7.6 mg/dL *LOW* (03/01/17 3:46 AM) Calcium Lvl [8.5-10.5 mg/dL] 4.2 mg/dL (03/03/17 4:39 AM) 4.2 mg/dL (03/02/17 4:03 AM) 3.2 mg/dL (03/01/17 3:46 AM) Phosphorus [2.5-4.5 mg/dL] 2.1 mg/dL (03/03/17 4:39 AM) 2.3 mg/dL (03/02/17 4:03 AM) 2.2 mg/dL (03/01/17 3:46 AM) Magnesium Lvl [1.8-2.4 mg/dL] 11 unit/L (02/25/17 3:24 AM) 12 unit/L (02/24/17 4:12 PM) ALT [0-65 unit/L] 14 unit/L (02/25/17 3:24 AM) 12 unit/L (02/24/17 4:12 PM) AST [0-37 unit/L] 79 unit/L (02/25/17 3:24 AM) 78 unit/L (02/24/17 4:12 PM) Alk Phos [39-136 unit/L] 0.9 mg/dL (02/25/17 3:24 AM) 1.5 mg/dL *HI* (02/24/17 4:12 PM) Bili Total [0.2-1.3 mg/dL] 1.0 mMol/L (02/24/17 5:03 PM) Lactic Acid Lvl [0.5-2.2 mMol/L] 1Result Comment: The eGFR is calculated using the [...] from the National Kid[employer] Education Program ( NK[employer]) which additionally recommends that when the eGFR is used in patients with extremes of body mass index for purposes of drug dosing, the eGFR should be mul tiplied by the estimated BMI. 2Result Comment: The eGFR is calculated using the [...] from the National Kid[employer] Education Program ( NKDEP) which additionally recommends that when the eGFR is used in patients with extremes of body mass index for purposes of drug dosing, the eGFR should be mul tiplied by the estimated BMI. 3Result Comment: The eGFR is calculated using the [...] from the National Kid[employer] Education Program ( NKDEP) which additionally recommends that when the eGFR is used in patients with extremes of body mass index for purposes of drug dosing, the eGFR should be mul tiplied by the estimated BMI. ANEMIA STUDY 1 2 3 Most recent to oldest [Reference Range]: 134 ng/mL (02/26/17 3:55 AM) Ferritin Lvl [5-204 ng/mL] 700 pg/mL (02/26/17 3:55 AM) Vitamin B12 Lvl [254-1320 pg/mL] TOXICOLOGY 1 2 3 Most recent to oldest [Reference Range]: 1630 *NA* (02/28/17 4:29 PM) [id number] *NA* (02/27/17 5:07 PM) [facility]/ml *NA* (02/28/17 4:29 PM) 21.6 ug/ml *NA* (02/27/17 5:07 PM) [facility] CHE[facility] 1 2 3 Most recent to oldest [Reference Range]: 55.60 mg/dL *NA* (02/24/17 9:24 PM) 55.60 mg/dL *NA* (02/24/17 9:24 PM) U Creatinine 8.2 mg/dL *NA* (02/24/17 9:24 PM) U Protein 0.1 *NA* (02/24/17 9:24 PM) U Prot/Creat 44 mEq/L *NA* (02/24/17 9:24 PM) U Sodium 40 mEq/L *NA* (02/24/17 9:24 PM) U Chloride 239 mOsm/kg *LOW* (02/24/17 9:24 PM) U Osmolality [300-800 mOsm/kg] None Seen (02/24/17 9:24 PM) U Eos [None Seen] URINE AND STOOL 1 2 3 Most recent to oldest [Reference Range]: Clear (02/24/17 9:24 PM) UA Turbidity [Clear] Ltyellow *NA* (02/24/17 9:24 PM) UA Color 6.0 (02/24/17 9:24 PM) UA pH [5.0-8.0] 1.006 (02/24/17 9:24 PM) UA Spec Grav [<=1.030] Negative mg/dL *NA* (02/24/17 9:24 PM) UA Glucose [Negative mg/dL] Negative (02/24/17 9:24 PM) UA Blood [Negative] Negative mg/dL *NA* (02/24/17 9:24 PM) UA Ketones [Negative mg/dL] Negative mg/dL (02/24/17 9:24 PM) UA Protein [Negative mg/dL] <=1.0 mg/dL *NA* (02/24/17 9:24 PM) UA Urobilinogen [0.1-1.0 mg/dL] Negative *NA* (02/24/17 9:24 PM) UA Bili [Negative] Negative (02/24/17 9:24 PM) UA Leuk Est [Negative] Negative (02/24/17 9:24 PM) UA Nitrite [Negative] 1 /HPF (02/24/17 9:24 PM) UA WBC [0-5 /HPF] <1 /HPF (02/24/17 9:24 PM) UA RBC [0-2 /HPF] Moderate /HPF *ABN* (02/24/17 9:24 PM) UA Bacteria [None Seen /HPF] Occasional /LPF *NA* (02/24/17 9:24 PM) UA Sq Epi [Few /LPF] 4 /LPF *HI* (02/24/17 9:24 PM) UA Hyal Cast [0-2 /LPF] Few /LPF *NA* (02/24/17 9:24 PM) UA Mucus [None Seen /LPF] HEMATOLOGY 1 2 3 Most recent to oldest [Reference Range]: 7.0 K/CMM (02/27/17 5:51 AM) 8.1 K/CMM (02/26/17 3:55 AM) 12.8 K/CMM *HI* (02/25/17 3:24 AM) WBC [3.7-10.4 K/CMM] 2.93 M/CMM *LOW* (02/27/17 5:51 AM) 3.46 M/CMM *LOW* (02/26/17 3:55 AM) 3.46 M/CMM *LOW* (02/25/17 3:24 AM) RBC [4.20-5.40 M/CMM] 9.2 g/dL *LOW* (02/27/17 5:51 AM) 10.7 g/dL *LOW* (02/26/17 3:55 AM) 10.7 g/dL *LOW* (02/25/17 3:24 AM) Hgb [12.0-16.0 g/dL] 27.3 % *LOW* (02/27/17 5:51 AM) 32.5 % *LOW* (02/26/17 3:55 AM) 32.3 % *LOW* (02/25/17 3:24 AM) Hct [36.0-48.0 %] 92.9 fL (02/27/17 5:51 AM) 94.0 fL (02/26/17 3:55 AM) 93.4 fL (02/25/17 3:24 AM) MCV [80.0-98.0 fL] 31.2 pg *HI* (02/27/17 5:51 AM) 30.9 pg (02/26/17 3:55 AM) 30.9 pg (02/25/17 3:24 AM) MCH [27.0-31.0 pg] 33.6 g/dL (02/27/17 5:51 AM) 32.9 g/dL (02/26/17 3:55 AM) 33.0 g/dL (02/25/17 3:24 AM) MCHC [32.0-36.0 g/dL] 16.0 % *HI* (02/27/17 5:51 AM) 16.3 % *HI* (02/26/17 3:55 AM) 16.2 % *HI* (02/25/17 3:24 AM) RDW [11.5-14.5 %] 232 K/CMM (02/27/17 5:51 AM) 222 K/CMM (02/26/17 3:55 AM) 233 K/CMM (02/25/17 3:24 AM) Platelet [133-450 K/CMM] 8.2 fL (02/27/17 5:51 AM) 8.5 fL (02/26/17 3:55 AM) 8.2 fL (02/25/17 3:24 AM) MPV [7.4-10.4 fL] 53.3 % (02/27/17 5:51 AM) 60.1 % (02/26/17 3:55 AM) 70.7 % (02/25/17 3:24 AM) Segs [45.0-75.0 %] 26.8 % (02/27/17 5:51 AM) 22.1 % (02/26/17 3:55 AM) 18.7 % *LOW* (02/25/17 3:24 AM) Lymphocytes [20.0-40.0 %] 13.5 % *HI* (02/27/17 5:51 AM) 12.3 % *HI* (02/26/17 3:55 AM) 8.1 % (02/25/17 3:24 AM) Monocytes [2.0-12.0 %] 6.0 % *HI* (02/27/17 5:51 AM) 5.0 % *HI* (02/26/17 3:55 AM) 2.2 % (02/25/17 3:24 AM) Eosinophils [0.0-4.0 %] 0.4 % (02/27/17 5:51 AM) 0.5 % (02/26/17 3:55 AM) 0.3 % (02/25/17 3:24 AM) Basophils [0.0-1.0 %] 3.7 K/CMM (02/27/17 5:51 AM) 4.9 K/CMM (02/26/17 3:55 AM) 9.1 K/CMM *HI* (02/25/17 3:24 AM) Segs-Bands # [1.5-8.1 K/CMM] 1.9 K/CMM (02/27/17 5:51 AM) 1.8 K/CMM (02/26/17 3:55 AM) 2.4 K/CMM (02/25/17 3:24 AM) Lymphocytes # [1.0-5.5 K/CMM] 1.0 K/CMM *HI* (02/27/17 5:51 AM) 1.0 K/CMM *HI* (02/26/17 3:55 AM) 1.0 K/CMM *HI* (02/25/17 3:24 AM) Monocytes # [0.0-0.8 K/CMM] 0.4 K/CMM (02/27/17 5:51 AM) 0.4 K/CMM (02/26/17 3:55 AM) 0.3 K/CMM (02/25/17 3:24 AM) Eosinophils # [0.0-0.5 K/CMM] 0.0 K/CMM (02/26/17 3:55 AM) 0.0 K/CMM (02/24/17 5:20 PM) Basophils # [0.0-0.2 K/CMM] Immunizations No data available for this section Procedures Procedure Date Related Diagnosis Body Site Appendectomy Cardiac catheterization Cholecystectomy Colonoscopy Hemorrhoidectomy Hernia repair Laminectomy Laparoscopy Operation Operation Procedure1 Procedure2 Procedure3 Repair of rotator cuff of shoulder Repair of ventral hernia PRIMO - Total abdominal hysterectomy Thyroidectomy 1low back surgery with fusion 2foot surgeries 3blader suspension Social History Social History Type Response Substance Abuse Use: None. Alcohol Past, Type Wine. Frequency: 1-2 times per year. Previous treatment: None. Smoking Status Never smoker; Type: Cigarettes; Exposure to Tobacco Smoke None; Cigarette Smoking Last 365 Days No; Reg Smoking Cessation Counseling No Assessment and Plan Extracted from: Title: renal f/u Author: Ibis Wong MD Date: [...] syndrome - on abx per ID Extracted from: Title: renal consult Author: Johnathan Monroe MD Date: 02/26/17 Requestor: Juan Maharaj MD, [facility] Reason: ARF CC: intrathecal pain pump infection [...] lasix, metolazone and spirinolactone managed by a [place] [facility]. She states her edema is [...] Signs (last 24 hrs) Last Charted Temp Oral98.1 DegF (FEB 26 15:59) Heart Rate Agtrnovcle05 bpm (FEB 26 15:59) Resp Rate 18 BRMIN (FEB 26:59) [id number] mmHg (FEB 26:59) DBP87 mmHg (FEB 26:59) HmY410 % (FEB 26 15:30) comfortable, alert lucid morbid obesity s1 s2 regular clear, no crackle or wheeze large pannus, +BS, soft, benign ++ adipose >> edema (mimimal) DP/R + Echo: EF 65-70%, diastolic dysfunction unconfirmed Wound cx: staph not aureus A. 1. 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 ?CKD-2 @ baseline, followed by [place] [facility] 3. Edema requiring aggressive diuresis [...] near baseline (Scr 0.9 in January) Extracted from: Title: General Admission H&P * Author: Mark Wade MD Date: 02/24/17 Patient: MRS RODGER NICHOLS Age: 66 years Sex: Female : 1950 [...] Signs (last 24 hrs) Last Charted Temp Oral98.0 DegF (FEB 24:) Heart Rate Uxnazkfdyt58 bpm (FEB 24:) Resp Rate 16 BRMIN (FEB 24) LWK915 mmHg (FEB 24:) DBP74 mmHg (FEB 24) ErF5978 % (FEB 24) Xwxrbt792.18 kg (FEB 24) Qyerhu930.1 cm (FEB 24) BMI43.36 (FEB 24) General: Alert and oriented. Eye: Extraocular movements [...] Labs (Last four charted values) WBC H 17.0(FEB 24) Hgb L 11.2(FEB 24) Hct L 34.9(FEB 24) Plt 284(FEB 24) Na L 131(FEB 24) K 3.6(FEB 24) CO2 H 34(FEB 24) Cl L 88(FEB 24) Cr H 1.72(FEB 24) BUN H 35(FEB 24) Glucose Random L 59(FEB 24) Ca 9.7(FEB 24). Impression and Plan ASSESSMENT: 66-year-old female with [...] pump. Blood cultures have been sent. Addendum Discussed with neurosurgery, Dr. Muse. We will continue with IV antibiotics tomorrow and by neurosurgical also have Dixero [employer] to evaluate pump to reduce morphine dosage and Sheri, prevent withdrawal. No surgery planned for tomorrow. Mark Foss MD on 02/24/2017 19:29
--- OUTSIDE RECORDS SUMMARY | 2019-04-23 01:23 | XMS REPORT | Summary of Care ---
Author Author [facility] Organization [facility] Address Unknown Phone Unavailable Encounter HQ Sudhir(FIN) [id number] Date(s): 01/12/18 - 01/13/18 [facility] [address] [place] [address] [phone] Vital Signs No data available for this section Problem List Condition Effective Dates Status Health [...] Substance Reaction Severity Status adhesive tape Active nutrasweet Active aspertame Active penicillins1, 2 Active iodine topical Active tetracyclines3 Active erythromycin4 Active amoxicillin5, 6 Active amitriptyline7 Active baclofen8 Active aspirin9 Active tetanus txiqcq74 Active diphtheria-tetanus Active hueqiuw82 Sgball65, 13 Active Rhisici06 Active Zocor15 Active Lopid16 Active Zbicgsln98 Active Gvdbfb71 Active Zokeya98 Active Celestone Active Wnrrso18 Active Yafcbfiqe27, 22 Active Iocaoqrd62 Active Riyitwy88 Active Thcqgrvq05 Active Pro-Yetfkjkc58 Active Zwcgbv51 Active Norco28 Active Advair Nkduvu82 Active Zetia30 Active Other Food Dzjxxax12 Active Zpexoq54 Active HWABXc43 Active FHMxhuyf52 Active 1Patient tolerated cefepime. 2Unspecified agent. Patient endorsed diffuse itching for "penicillins." 3Diffuse itching per patient. 4Itching and rash per patient. 5Patient tolerated cefepime. 6Diffuse itching per patient. 7Muscle tremors per patient. 8Muscle tremors and jerking per patient. 9Patient endorses "wheezing and diaphramatic spasms, throat closing up as well as gastritis." 10Rash and swelling at injection site per patient. 11Rash and swelling at injection site per patient. 12Patient tolerated cefepime. 13Diffuse itching with vomiting per patient. 14Unknown reaction per patient. 15Muscle weakness and pain, as well as wheezing per patient. 16Muscle pain per patient. 17Vomiting per patient. 18Itching and rash per patient. 19Itching and rash per patient. 20Rash, itching, headaches, and irregular heartbeats per patient. 21Patient tolerated cefepime. 22Diffuse itching per patient. 23Rash and itching per patient. 24Muscle pain, weakness and dark urine per patient. 25Tachycardia per patient. 26Unknown reaction per patient. 27Muscle tremors per patient. 28Itching per patient. 29Patient endorses "neurologic problems." 30Muscle weakness, pain, wheezing per patient. 31splenda 32Muscle tremors and jerking per patient. 33Patient endorses "wheezing and diaphramatic spasms, throat closing up as well as gastritis." 34Unknown reaction per patient. Medications No data available for this section Results No data available for this section Immunizations No data available for this section Procedures Procedure Date Related Diagnosis Body Site Status Appendectomy Completed Cardiac catheterization Completed Cholecystectomy Completed Colonoscopy Completed Hemorrhoidectomy Completed Hernia repair Completed Laminectomy Completed Laparoscopy Completed Operation Completed Operation Completed Procedure1 Completed Procedure2 Completed Procedure3 Completed Repair of rotator cuff of shoulder Completed Repair of ventral hernia Completed PRIMO - Total abdominal hysterectomy Completed Thyroidectomy Completed 1low back surgery with fusion 2foot surgeries 3blader suspension Social History Social History Type Response Substance Abuse Use: None. Alcohol Past, Type Wine. Frequency: 1-2 times per year. Previous treatment: None. Smoking Status Never smoker; Type: Cigarettes; Exposure to Tobacco Smoke None; Cigarette Smoking Last 365 Days No; Reg Smoking Cessation Counseling No entered on: 02/24/17 Assessment and Plan No data available for this section
--- OUTSIDE RECORDS SUMMARY | 2019-04-23 01:23 | XMS REPORT | Summary of Care ---
Author Author [facility] Organization [facility] Address Unknown Phone Unavailable Encounter HQ Sudhir(LONNIE) [id number] Date(s): 01/30/17 - 01/31/17 [facility] [address] [place] [address]- [phone] Discharge Disposition: Home or Self Care Attending Physician: Pipo Muse MD Vital Signs 1 2 3 Most recent to oldest [Reference Range]: 165.1 cm (01/30/17 12:02 PM) 165.1 cm (01/27/17 2:54 PM) 165.1 cm (01/27/17 2:30 PM) Height 127.182 kg (01/30/17 12:30 PM) Current Weight 97.6 DegF (01/31/17 3:00 PM) 97.8 DegF (01/31/17 11:30 AM) 97.9 DegF (01/31/17 8:00 AM) Temperature Oral [96.4-99.1 DegF] 144/74 mmHg *HI* (01/31/17 3:00 PM) 121/71 mmHg (01/31/17 11:30 AM) 134/75 mmHg (01/31/17 8:00 AM) Blood Pressure [90-140/60-90 mmHg] 18 BRMIN (01/31/17 3:00 PM) 18 BRMIN (01/31/17 11:30 AM) 18 BRMIN (01/31/17 8:00 AM) Respiratory Rate [14-20 BRMIN] 68 bpm (01/31/17 3:00 PM) 67 bpm (01/31/17 11:30 AM) 75 bpm (01/31/17 8:00 AM) Peripheral Pulse Rate [60-100 bpm] 127.182 kg (01/30/17 12:02 PM) 123 kg (01/27/17 2:54 PM) Weight 46.66 m2 (01/30/17 12:02 PM) 45.12 m2 (01/27/17 2:54 PM) Body Mass Index Problem List Condition [...] Active Lipitor Active Lopid Active Lyrica Active [place] Active NSAIDs Active nutrasweet Active Other Food Allergy1 Active penicillins Active Percocet Active Prinivil Active Pro-Banthine Active Reglan Active Robaxin Active Talwin Active TEGretol Active tetanus immune globulin Active tetanus toxoid Active tetracyclines Active Ultram Active Zaroxolyn Active Zetia Active Zocor Active 1splenda Medications 1/2NS + KCL 20mEq/L 1000ml (Premix) 1,000 mL 1,000 mL, Rate: 75 ml/hr, Infuse over: 13.3 hr, Route: IV, Dosing Weight 123 kg, Total Volume: 1,000, Start date: 01/30/17 10:46:00 CDT, Duration: 30 day, Stop date: 03/01/17 10:45:00 CDT Notes: PREMIX IV - Do Not AlterWASTE: F/P - Sink; E - Municipal Trash Bin Start Date: 01/30/17 Stop Date: 02/01/17 Status: Discontinued acetaminophen 650 mg, 2 tab, Route: PO, Drug form: TAB, Q4H, Dosing Weight 127.182, kg, PRN Pa in 1-3/Temp > 100.4 F, Start date: 01/30/17 12:28:00 CDT, Duration: 30 day, Stop date: 03/01/17 12:27:00 CDT Notes: Do not exceed 4 gm/day. (Same as: Tylenol) Start Date: 01/30/17 Stop Date: 02/01/17 Status: Discontinued allopurinol 300 mg, 1 tab, Route: PO, Drug form: TAB, Daily, Dosing Weight 123, kg, Start da te: 01/31/17 9:00:00 CDT, Duration: 30 day, Stop date: 03/01/17 9:00:00 CDT Notes: (Same as: Zyloprim) Start Date: 01/31/17 Stop Date: 02/01/17 Status: Discontinued ANES diphenhydrAMINE 12.5 mg, 0.25 mL, Route: IVP, Drug form: INJ, Q6H, Dosing Weight 123, kg, PRN It maria dolores, Start date: 01/30/17 8:08:00 CDT, Duration: 30 day, Stop date: 03/01/17 8 :07:00 CDT Notes: (Same as: Benadryl) Start Date: 01/30/17 Stop Date: 01/30/17 Status: Discontinued ANES fentaNYL 50 microgram, 1 mL, Route: IVP, Drug form: INJ, Q5Min, Dosing Weight 123, kg, ME N Pain Score 7-10, Priority: Routine, Start date: 01/30/17 8:08:00 CDT, Duration : 2 doses or times, Stop date: Limited # of times Notes: (Same as: Sublimaze) Preservative free. Start Date: 01/30/17 Stop Date: 01/30/17 Status: Completed ANES fentaNYL 25 microgram, 0.5 mL, Route: IVP, Drug form: INJ, Q5Min, Dosing Weight 123, kg, PRN Pain Score 4-6, Priority: Routine, Start date: 01/30/17 8:08:00 CDT, Duratio n: 4 doses or times, Stop date: Limited # of times Notes: (Same as: Sublimaze) Preservative free. Start Date: 01/30/17 Stop Date: 01/30/17 Status: Discontinued ANES flumazenil 0.2 mg, 2 mL, Route: IVP, Drug form: INJ, PRN, Dosing Weight 123, kg, PRN Benzod iazepine Reversal, Initial dose, Start date: 01/30/17 8:08:00 CDT, Duration: 30 day, Stop date: 03/01/17 8:07:00 CDT Notes: (Same as: Romazicon) Start Date: 01/30/17 Stop Date: 01/30/17 Status: Discontinued ANES hydrALAZINE 10 mg, 0.5 mL, Route: IVP, Drug form: INJ, Q20Min, Dosing Weight 123, kg, PRN El evated BP, Start date: 01/30/17 8:08:00 CDT, Duration: 2 doses or times, Stop da te: Limited # of times Notes: (Same as: Apresoline)Push over 5 minutes Start Date: 01/30/17 Stop Date: 01/30/17 Status: Discontinued ANES labetalol 10 mg, 2 mL, Route: IVP, Drug form: INJ, Q5Min, Dosing Weight 123, kg, PRN Justin jaye BP, Start date: 01/30/17 8:08:00 CDT, Duration: 5 doses or times, Stop date: Limited # of times Notes: (Same as: Normodyne, Trandate)Push over 2 minutes Give bolus over 2-3 mi nutes. Start Date: 01/30/17 Stop Date: 01/30/17 Status: Discontinued ANES naloxone 0.4 mg, 1 mL, Route: IVP, Drug form: INJ, Q2MIN, Dosing Weight 123, kg, PRN Narc otic Reversal, Start date: 01/30/17 8:08:00 CDT, Duration: 8 doses or times, Sto p date: Limited # of times Notes: Same as Narcan Start Date: 01/30/17 Stop Date: 01/30/17 Status: Discontinued ANES ondansetron 4 mg, 2 mL, Route: IVP, Drug form: INJ, ONCE, Dosing Weight 123, kg, PRN Nausea & Vomiting, Start date: 01/30/17 8:08:00 CDT Notes: (Same as: Zofran) MEDICATION WASTE Product Size: 4 mgProduct Was jaye: ___ mg Start Date: 01/30/17 Stop Date: 01/30/17 Status: Completed atropine-diphenoxylate 0.025 mg-2.5 mg oral tablet 2 tab, Route: PO, Drug Form: TAB, PRN, PRN Diarrhea, Start date: 01/30/17 12:21: 00 CDT, Duration: 30 day, Stop date: 03/01/17 12:20:00 CDT Notes: (Same As: Lomotil) MAX Adult dose=8 tabs/day Start Date: 01/30/17 Stop Date: 02/01/17 Status: Discontinued Benadryl 25 mg, 1 cap, Route: PO, Drug form: CAP, TID, Dosing Weight 127.182, kg, PRN Itc kuldip, Start date: 01/30/17 15:58:00 CDT, Duration: 30 day, Stop date: 03/01/17 1 5:57:00 CDT Notes: (Same as: Benadryl) Start Date: 01/30/17 Stop Date: 02/01/17 Status: Discontinued busPIRone 7.5 mg, 0.5 tab, Route: PO, Drug form: TAB, ONCE, Dosing Weight 123, kg, Start d ate: 01/30/17 10:53:00 CDT, Stop date: 01/30/17 10:53:00 CDT, .. Notes: (Same As: BuSpar) Start Date: 01/30/17 Stop Date: 01/30/17 Status: Completed chromium picolinate 2,000 mg, Route: PO, Daily, Dosing Weight 123, kg, Start date: 01/31/17 9:00:00 CDT, Duration: 30 day, Stop date: 03/01/17 9:00:00 CDT Start Date: 01/31/17 Stop Date: 01/30/17 Status: Deleted dexamethasone (ANES) Route: IV, Drug form: INJ, ONCE, Stop date: 01/30/17 8:39:00 CDT Start Date: 01/30/17 Stop Date: 01/30/17 Status: Completed Dextrose 50% Syringe 12.5 gm, 25 mL, Route: IVP, Drug Form: INJ, Dosing Weight 127.182, kg, PRN, PRN Blood Glucose Results, Start date: 01/30/17 12:31:00 CDT, Duration: 30 day, Stop date: 03/01/17 12:30:00 CDT Start Date: 01/30/17 Stop Date: 02/01/17 Status: Discontinued Dextrose 50% Syringe 25 gm, 50 mL, Route: IVP, Drug Form: INJ, Dosing Weight 127.182, kg, PRN, PRN Bl ood Glucose Results, Start date: 01/30/17 12:31:00 CDT, Duration: 30 day, Stop d ate: 03/01/17 12:30:00 CDT Start Date: 01/30/17 Stop Date: 02/01/17 Status: Discontinued docusate 100 mg, 1 cap, Route: PO, Drug form: CAP, BID, Dosing Weight 127.182, kg, PRN Co nstipation, Start date: 01/30/17 12:28:00 CDT, Duration: 30 day, Stop date: 02/14 01/31 12:27:00 CDT Notes: (Same as: Colace) (Do Not Crush) Start Date: 01/30/17 Stop Date: 02/01/17 Status: Discontinued DuoNeb inhalation solution 3 mL, Route: NEB, Drug Form: SOLN, Dosing Weight 127.182, kg, ONCE, NOW, Start d ate: 01/31/17 10:35:00 CDT, Stop date: 01/31/17 10:35:00 CDT Notes: (Same as: Duoneb) Start Date: 01/31/17 Stop Date: 01/31/17 Status: Ordered ePHEDrine (ANES) Route: IV, Drug form: INJ, ONCE, Stop date: 01/30/17 8:34:00 CDT Start Date: 01/30/17 Stop Date: 01/30/17 Status: Completed fentaNYL (ANES) Route: IV, Drug form: INJ, ONCE, Stop date: 01/30/17 8:39:00 CDT Start Date: 01/30/17 Stop Date: 01/30/17 Status: Completed gabapentin 900 mg, 3 cap, Route: PO, Drug form: CAP, TID, Dosing Weight 123, kg, Start date : 01/30/17 13:00:00 CDT, Duration: 30 day, Stop date: 03/01/17 9:00:00 CDT Notes: (Same as: Neurontin) Start Date: 01/30/17 Stop Date: 02/01/17 Status: Discontinued glucagon 1 mg, Route: IM, Drug form: PDR/INJ, PRN, Dosing Weight 127.182, kg, PRN Blood G lucose Results, Start date: 01/30/17 12:31:00 CDT, Duration: 30 day, Stop date: 03/01/17 12:30:00 CDT Start Date: 01/30/17 Stop Date: 02/01/17 Status: Discontinued glycopyrrolate (ANES) Route: IV, Drug form: INJ, ONCE, Stop date: 01/30/17 10:19:00 CDT Start Date: 01/30/17 Stop Date: 01/30/17 Status: Completed Heparin Lock 100 units/mL INJ solution 500 unit, 5 mL, Route: INJ, Drug Form: SOLN, Dosing Weight 127.182, kg, PRN, PRN Other -See Comment, Start date: 01/31/17 17:16:00 CDT, Duration: 30 day, Stop d ate: 03/02/17 17:15:00 CDT Notes: (Same as: Heparin Lock Flush) Start Date: 01/31/17 Stop Date: 02/01/17 Status: Discontinued Humalog SUB-Q Start Date: 01/27/17 Status: Ordered hydrALAZINE 20 mg, 1 mL, Route: IVP, Drug form: INJ, Q4H, Dosing Weight 127.182, kg, PRN Vicky vated BP, Start date: 01/30/17 12:28:00 CDT, Duration: 30 day, Stop date: 12:27:00 CDT, For SBP greater than 180 Notes: (Same as: Apresoline)Push over 5 minutes Start Date: 01/30/17 Stop Date: 02/01/17 Status: Discontinued insulin aspart 3 unit, 0.03 mL, Route: SUB-Q, Drug form: SOLN, TID-Before Meals, Dosing Weight 127.182, kg, PRN Blood Glucose Results, Start date: 01/30/17 12:31:00 CDT, Durat ion: 30 day, Stop date: 03/01/17 12:30:00 CDT Notes: Roll in palms of hands gently; Do not shake vigorously. (Same as: NovoLO G)"single patient use only"WASTE: F/P - Black; E - Municipal Trash Bin Stable f or 28 days at room temperature.Expires in days from Date Start Date: 01/30/17 Stop Date: 02/01/17 Status: Discontinued insulin aspart 12 unit, 0.12 mL, Route: SUB-Q, Drug form: SOLN, TID-Before Meals, Dosing Weight 127.182, kg, PRN Blood Glucose Results, Start date: 01/30/17 12:31:00 CDT, Dura tion: 30 day, Stop date: 03/01/17 12:30:00 CDT Notes: Roll in palms of hands gently; Do not shake vigorously. (Same as: Malena G)"single patient use only"WASTE: F/P - Black; E - Municipal Trash Bin Stable f or 28 days at room temperature.Expires in days from Date Start Date: 01/30/17 Stop Date: 02/01/17 Status: Discontinued insulin aspart 6 unit, 0.06 mL, Route: SUB-Q, Drug form: SOLN, TID-Before Meals, Dosing Weight 127.182, kg, PRN Blood Glucose Results, Start date: 01/30/17 12:31:00 CDT, Durat ion: 30 day, Stop date: 03/01/17 12:30:00 CDT Notes: Roll in palms of hands gently; Do not shake vigorously. (Same as: Malena G)"single patient use only"WASTE: F/P - Black; E - Municipal Trash Bin Stable f or 28 days at room temperature.Expires in days from Date Start Date: 01/30/17 Stop Date: 02/01/17 Status: Discontinued insulin aspart 9 unit, 0.09 mL, Route: SUB-Q, Drug form: SOLN, TID-Before Meals, Dosing Weight 127.182, kg, PRN Blood Glucose Results, Start date: 01/30/17 12:31:00 CDT, Durat ion: 30 day, Stop date: 03/01/17 12:30:00 CDT Notes: Roll in palms of hands gently; Do not shake vigorously. (Same as: Malena Purvis)"single patient use only"WASTE: F/P - Black; E - Municipal Trash Bin Stable f or 28 days at room temperature.Expires in days from Date Start Date: 01/30/17 Stop Date: 02/01/17 Status: Discontinued insulin aspart 15 unit, 0.15 mL, Route: SUB-Q, Drug form: SOLN, TID-Before Meals, Dosing Weight 127.182, kg, PRN Blood Glucose Results, Start date: 01/30/17 12:31:00 CDT, Dura tion: 30 day, Stop date: 03/01/17 12:30:00 CDT Notes: Roll in palms of hands gently; Do not shake vigorously. (Same as: Malena Purvis)"single patient use only"WASTE: F/P - Black; E - Municipal Trash Bin Stable f or 28 days at room temperature.Expires in days from Date Start Date: 01/30/17 Stop Date: 02/01/17 Status: Discontinued Isolyte S (PH 7.4) 1000 mL (ANES) Route: IV, Total Volume: 1,000, Start date: 01/30/17 7:42:00 CDT, Stop date: 8:42:00 CDT Start Date: 01/30/17 Stop Date: 01/30/17 Status: Completed isosorbide mononitrate 60 mg, 1 tab, Route: PO, Drug form: ERTAB, QAM, Dosing Weight 123, kg, Start anmol e: 01/31/17 9:00:00 CDT, Duration: 30 day, Stop date: 03/01/17 9:00:00 CDT Notes: (Same as:Danis)"Do Not Crush" Take on empty stomach/ full glass of water . Do not crush Start Date: 01/31/17 Stop Date: 02/01/17 Status: Discontinued isosorbide mononitrate 30 mg, 1 tab, Route: PO, Drug form: ERTAB, QPM, Dosing Weight 123, kg, Start anmol e: 01/30/17 17:00:00 CDT, Duration: 30 day, Stop date: 02/28/17 17:00:00 CDT Notes: (Same as:Imdur)"Do Not Crush" Take on empty stomach/ full glass of water . Do not crush Start Date: 01/30/17 Stop Date: 02/01/17 Status: Discontinued isosorbide mononitrate 30 mg oral tablet, extended release 30 mg=1 tab, PO, QPM Start Date: 01/27/17 Status: Ordered isosorbide mononitrate 60 mg oral tablet, extended release 60 mg=1 tab, PO, QAM Start Date: 01/27/17 Status: Ordered Lantus 100 units/mL 62 unit, Route: SUB-Q, Drug form: SOLN, Bedtime, Dosing Weight 123, kg, Start da te: 01/30/17 21:00:00 CDT, Duration: 30 day, Stop date: 02/28/17 21:00:00 CDT Start Date: 01/30/17 Stop Date: 01/30/17 Status: Deleted Lantus 100 units/mL 62 unit, SUB-Q, Bedtime Start Date: 01/27/17 Status: Ordered Levemir FlexPen 62 unit, 0.62 mL, Route: SUB-Q, Drug form: INJ, Bedtime, Start date: 01/30/17 21 :00:00 CDT, Duration: 30 day, Stop date: 02/28/17 21:00:00 CDT Notes: Same as BlakeDo not hold insulin without contacting prescriberWASTE: F/ P - Black; E - [facility] "single patient use only" Start Date: 01/30/17 Stop Date: 02/01/17 Status: Discontinued liothyronine 25 microgram, 1 tab, Route: PO, Drug form: TAB, Daily, Dosing Weight 123, kg, St art date: 01/31/17 9:00:00 CDT, Duration: 30 day, Stop date: 03/01/17 9:00:00 CD T Notes: (Same as: Cytomel) Start Date: 01/31/17 Stop Date: 02/01/17 Status: Discontinued Lomotil oral tablet 1 tab, Route: PO, Drug Form: TAB, Dosing Weight 123, kg, PRN, PRN Diarrhea, Star t date: 01/30/17 10:49:00 CDT, Duration: 30 day, Stop date: 03/01/17 10:48:00 CD T Notes: (Same As: Lomotil) MAX Adult dose=8 tabs/day Start Date: 01/30/17 Stop Date: 02/01/17 Status: Discontinued melatonin 3 mg, 1 tab, Route: PO, Drug form: TAB, Bedtime, Dosing Weight 127.182, kg, PRN Sleep, Start date: 01/30/17 12:28:00 CDT, Duration: 30 day, Stop date: 03/01/17 12:27:00 CDT Notes: (Same as: Melatonin) Start Date: 01/30/17 Stop Date: 02/01/17 Status: Discontinued metoprolol extended release PO, BID Start Date: 01/27/17 Status: Ordered midazolam (ANES) Route: IV, Drug form: SOLN, ONCE, Stop date: 01/30/17 8:39:00 CDT Start Date: 01/30/17 Stop Date: 01/30/17 Status: Completed morphine Sulfate 2 mg, 1 mL, Route: IVP, Drug form: INJ, Q4H, Dosing Weight 127.182, kg, PRN Pain Score 7-10, Start date: 01/30/17 12:28:00 CDT, Duration: 30 day, Stop date: 12:27:00 CDT Notes: (Same as:MORPhine Sulfate) Start Date: 01/30/17 Stop Date: 02/01/17 Status: Discontinued multivitamin 2 tab, Route: PO, Drug Form: TAB, Dosing Weight 123, kg, Daily, Start date: 01/15 03/02 9:00:00 CDT, Duration: 30 day, Stop date: 03/01/17 9:00:00 CDT Notes: (Same as:Thera)WASTE: F/P - Black; E - Municipal Trash Bin Take with ben d. Start Date: 01/31/17 Stop Date: 02/01/17 Status: Discontinued neostigmine (ANES) Route: IV, Drug form: INJ, ONCE, Stop date: 01/30/17 10:14:00 CDT Start Date: 01/30/17 Stop Date: 01/30/17 Status: Completed Nitrostat 0.4 mg sublingual tablet 0.4 mg, 1 tab, Route: SL, Drug form: TAB, Q5Min, Dosing Weight 123, kg, PRN Ches t Pain, Start date: 01/30/17 10:52:00 CDT, Duration: 3 doses or times, Stop date : Limited # of times Notes: (Same as:Nitroquick, Nitrostat)"Do Not Crush" Sublingual tablet Start Date: 01/30/17 Stop Date: 02/01/17 Status: Discontinued ondansetron 4 mg, 2 mL, Route: IVP, Drug form: INJ, Q6H, Dosing Weight 127.182, kg, PRN Naus ea & Vomiting, Start date: 01/30/17 12:28:00 CDT, Duration: 30 day, Stop date: 03/01/17 12:27:00 CDT Notes: (Same as: Diana) MEDICATION WASTE Product Size: 4 mgProduct Was jaye: ___ mg Start Date: 01/30/17 Stop Date: 01/30/17 Status: Deleted ondansetron 4 mg, 2 mL, Route: IVP, Drug form: INJ, ONCE, Dosing Weight 123, kg, Start date: 01/30/17 10:53:00 CDT, Stop date: 01/30/17 10:53:00 CDT, .. Notes: (Same as: Diana) MEDICATION WASTE Product Size: 4 mgProduct Was jaye: ___ mg Start Date: 01/30/17 Stop Date: 01/30/17 Status: Ordered ondansetron (ANES) Route: IV, Drug form: INJ, ONCE, Stop date: 01/30/17 10:09:00 CDT Start Date: 01/30/17 Stop Date: 01/30/17 Status: Completed propofol (ANES) Route: IV, Drug form: INJ, ONCE, Stop date: 01/30/17 8:39:00 CDT Start Date: 01/30/17 Stop Date: 01/30/17 Status: Completed rocuronium (ANES) Route: IV, Drug form: INJ, ONCE, Stop date: 01/30/17 8:39:00 CDT Start Date: 01/30/17 Stop Date: 01/30/17 Status: Completed spironolactone 50 mg, 1 tab, Route: PO, Drug form: TAB, Q-M-W-F, Dosing Weight 123, kg, Start d ate: 02/02/17 9:00:00 CDT, Duration: 30 day, Stop date: 03/02/17 9:00:00 CDT Notes: (Same As: Aldactone) Start Date: 02/02/17 Stop Date: 02/01/17 Status: Canceled Synthroid 175 microgram, 1 tab, Route: PO, Drug form: TAB, Daily, Dosing Weight 123, kg, S tart date: 01/31/17 9:00:00 CDT, Duration: 30 day, Stop date: 03/01/17 9:00:00 C DT Notes: Take 1 hour before or 2 hours after meal; Enteral feeds may interefere wi th the absorption of this medication. (Same as: Levothroid, Synthroid) Start Date: 01/31/17 Stop Date: 02/01/17 Status: Discontinued temazepam 30 mg, PO, Bedtime, 0 Refill(s) Start Date: 01/27/17 Stop Date: 01/30/17 Status: Discontinued temazepam 15 mg, 1 cap, Route: PO, Drug form: CAP, Bedtime, Dosing Weight 127.182, kg, Sta rt date: 01/30/17 21:00:00 CDT, Duration: 30 day, Stop date: 02/28/17 21:00:00 C DT Notes: (Same As: Restoril) Start Date: 01/30/17 Stop Date: 02/01/17 Status: Discontinued tizanidine 2 mg, 0.5 tab, Route: PO, Drug form: TAB, Bedtime, Dosing Weight 123, kg, Start date: 01/30/17 21:00:00 CDT, Duration: 30 day, Stop date: 02/28/17 21:00:00 CDT Notes: (Same As: Zanaflex) Start Date: 01/30/17 Stop Date: 02/01/17 Status: Discontinued trazodone 50 mg, 1 tab, Route: PO, Drug form: TAB, Bedtime, Dosing Weight 127.182, kg, PRN Insomnia, Start date: 01/30/17 12:28:00 CDT, Duration: 30 day, Stop date: 03/01 12:27:00 CDT Notes: (Same As: Sofia) Start Date: 01/30/17 Stop Date: 02/01/17 Status: Discontinued trazodone 100 mg oral tablet 100 mg, 2 tab, Route: PO, Drug form: TAB, Bedtime, Dosing Weight 123, kg, Start date: 01/30/17 21:00:00 CDT, Duration: 30 day, Stop date: 02/28/17 21:00:00 CDT Notes: (Same As: Sofia) Start Date: 01/30/17 Stop Date: 02/01/17 Status: Discontinued vancomycin (ANES) (ANES) Route: IV, Drug form: INJ, Start date: 01/30/17 7:51:00 CDT, Stop date: 01/30/17 8:51:00 CDT Start Date: 01/30/17 Stop Date: 01/30/17 Status: Completed vancomycin (SCIP) + sodium chloride 0.9% 500 mL INJ (for IV set) 500 mL 2,000 mg, Route: IVPB, Q12H, Dosing Weight 123, kg, Time Critical Medication, St art date: 01/30/17 21:00:00 CDT, Duration: 1 doses or times, Stop date: 01/30/17 21:00:00 CDT, ABX Indication: Surgical Prophylaxis Notes: TIME CRITICAL MEDICATION(Same As: Vancocin)Infusion rate< 1000 mg: infuse over 1 [id number] - 1500 mg: infuse over 1.5 [id number] - 2000 mg: infuse over 2 hours> 2001 mg: infuse over 2.5 hours MEDICATION WASTE Product Size: 1000 mgProduct Wasted: ___ mg Start Date: 01/30/17 Stop Date: 01/30/17 Status: Completed Vitamin D3 10,000 IntlUnit, 10 tab, Route: PO, Drug form: TAB, Daily, Dosing Weight 123, kg , Start date: 01/31/17 9:00:00 CDT, Duration: 30 day, Stop date: 03/01/17 9:00:0 0 CDT Notes: Same as : Vitamin D3 Start Date: 01/31/17 Stop Date: 02/01/17 Status: Discontinued Vitamin D3 10,000 IntlUnit, PO, Daily Start Date: 01/27/17 Status: Ordered Zofran 4 mg, 1 tab, Route: PO, Drug form: TAB, Q8H, Dosing Weight 123, kg, PRN Nausea, Start date: 01/30/17 10:46:00 CDT, Duration: 30 day, Stop date: 03/01/17 10:45:0 0 CDT Notes: (Same as: Zofran) Start Date: 01/30/17 Stop Date: 02/01/17 Status: Discontinued Zofran 4 mg, 2 mL, Route: IVP, Drug form: INJ, Q8H, Dosing Weight 123, kg, PRN Nausea, Start date: 01/30/17 10:46:00 CDT, Duration: 30 day, Stop date: 03/01/17 10:45:0 0 CDT Notes: (Same as: Zofran) MEDICATION WASTE Product Size: 4 mgProduct Was jaye: ___ mg Start Date: 01/30/17 Stop Date: 02/01/17 Status: Discontinued Results BLOOD BANK RESULTS Most recent to 1 oldest [Reference Range]: ABO/Rh A POS *Unknown* (01/27/17 2:59 PM) Antibody Scrn Negative (01/27/17 2:59 PM) ELECTROLYTES Most recent to 1 oldest [Reference Range]: Sodium Lvl [135-145 140 mEq/L mEq/L] (01/27/17 2:59 PM) Potassium Lvl 3.6 mEq/L [3.5-5.1 mEq/L] (01/27/17 2:59 PM) Chloride Lvl [95-109 104 mEq/L mEq/L] (01/27/17 2:59 PM) CO2 [24-32 mEq/L] 28 mEq/L (01/27/17 2:59 PM) AGAP [10.0-20.0 11.6 mEq/L mEq/L] (01/27/17 2:59 PM) CHEM PANEL Most recent to 1 oldest [Reference Range]: Creatinine Lvl 0.90 mg/dL [0.50-1.40 mg/dL] (01/27/17 2:59 PM) eGFR 67 mL/min/1.73m2 1 *NA* (01/27/17 2:59 PM) BUN [7-22 mg/dL] 28 mg/dL *HI* (01/27/17 2:59 PM) Glucose Lvl [70-99 108 mg/dL mg/dL] *HI* (01/27/17 2:59 PM) Calcium Lvl 10.2 mg/dL [8.5-10.5 mg/dL] (01/27/17 2:59 PM) 1Result Comment: The eGFR is calculated using [...] be mul tiplied by the estimated BMI. IMMUNOLOGY Most recent to 1 oldest [Reference Range]: HIV Ag/Ab 4th Gen Negative [Negative] *NA* (01/27/17 2:59 PM) HEMATOLOGY Most recent to 1 oldest [Reference Range]: WBC [3.7-10.4 K/CMM] 7.7 K/CMM (01/27/17 2:59 PM) RBC [4.20-5.40 3.78 M/CMM M/CMM] *LOW* (01/27/17 2:59 PM) Hgb [12.0-16.0 g/dL] 11.7 g/dL *LOW* (01/27/17 2:59 PM) Hct [36.0-48.0 %] 34.8 % *LOW* (01/27/17 2:59 PM) MCV [80.0-98.0 fL] 92.0 fL (01/27/17 2:59 PM) MCH [27.0-31.0 pg] 30.9 pg (01/27/17 2:59 PM) MCHC [32.0-36.0 33.5 g/dL g/dL] (01/27/17 2:59 PM) RDW [11.5-14.5 %] 17.1 % *HI* (01/27/17 2:59 PM) Platelet [133-450 258 K/CMM K/CMM] (01/27/17 2:59 PM) MPV [7.4-10.4 fL] 8.4 fL (01/27/17 2:59 PM) Segs [45.0-75.0 %] 68.1 % (01/27/17 2:59 PM) Lymphocytes 20.4 % [20.0-40.0 %] (01/27/17 2:59 PM) Monocytes [2.0-12.0 9.4 % %] (01/27/17 2:59 PM) Eosinophils [0.0-4.0 1.4 % %] (01/27/17 2:59 PM) Basophils [0.0-1.0 0.7 % %] (01/27/17 2:59 PM) Segs-Bands # 5.3 K/CMM [1.5-8.1 K/CMM] (01/27/17 2:59 PM) Lymphocytes # 1.6 K/CMM [1.0-5.5 K/CMM] (01/27/17 2:59 PM) Monocytes # [0.0-0.8 0.7 K/CMM K/CMM] (01/27/17 2:59 PM) Eosinophils # 0.1 K/CMM [0.0-0.5 K/CMM] (01/27/17 2:59 PM) Basophils # [0.0-0.2 0.1 K/CMM K/CMM] (01/27/17 2:59 PM) PT [12.0-14.7 12.2 seconds seconds] (01/27/17 2:59 PM) INR [0.85-1.17] 0.89 (01/27/17 2:59 PM) PTT [22.9-35.8 25.6 seconds seconds] (01/27/17 2:59 PM) Immunizations No data available for this section [...] Previous treatment: None. Smoking Status Never smoker; Exposure to Tobacco Smoke None; Cigarette Smoking Last 365 Days No; Reg Smoking Cessation Counseling No Assessment and Plan Extracted from: Title: Clinical Document Author: Pipo Muse MD Date: 01/31/17 Patient ambulating, voiding, ready for discharge to home, instructions given re activity, diet, wound care, and meds, to office two weeks
[2019-04-23] MEDS ORDERED: ASPIRIN 81 MG CHEW TAB PO ONE (01:30)
[2019-04-23] MEDS ORDERED: ONDANSETRON HCL INJ 2MG/ML 2ML 2 MG/ML VIAL IV STA (01:44)
[2019-04-23 01:56] LABS: ALANINE AMINOTRANSFERASE 19 IU/L (0-55); ALBUMIN 3.5 g/dL (3.5-5.0); ALBUMIN/GLOBULIN RATIO 0.9 (0.8-2.0); ALKALINE PHOSPHATASE 101 IU/L (40-150); ANION GAP 19.4 mmol/L (8-16); BLOOD UREA NITROGEN 19 mg/dL (7-26); BUN/CREATININE RATIO 21 (6-25); CALCIUM 9.9 mg/dL (8.4-10.2); CARBON DIOXIDE 23 mmol/L (22-29); CHLORIDE 103 mmol/L (98-107); CREATINE KINASE 88 IU/L (29-168); CREATININE, SERUM 0.92 mg/dL (0.57-1.11); EST GLOMERULAR FILTRATION RATE > 60 ML/MIN (60-); GLUCOSE 110 mg/dL (74-118); POTASSIUM 4.4 mmol/L (3.5-5.1); SODIUM 141 mmol/L (136-145)
[2019-04-23 02:05] LABS: BASOPHILS % 0.5 % (0.0-1.0); EOSINOPHILS # (AUTO) 0.2 (0.0-0.4); EOSINOPHILS % 2.4 % (0.0-6.0); HEMATOCRIT 39.1 % (34.2-44.1); HEMOGLOBIN 12.9 g/dL (12.0-16.0); LYMPHOCYTES # (AUTO) 2.2 (1.0-3.2); MONOCYTES # (AUTO) 0.7 (0.2-0.8); MONOCYTES % 8.9 % (4.4-11.3); NEUTROPHILS # (AUTO) 4.7 (2.1-6.9); NEUTROPHILS % 59.8 % (38.7-80.0); PLATELET COUNT 294 x10e3/uL (140-360); RED BLOOD COUNT 4.03 x10e6/uL (3.6-5.1); RED CELL DISTRIBUTION WIDTH 14.8 % (11.7-14.4)
--- NOTE | 2019-04-23 02:13 | Diagnostic Imaging Report ---
EXAMINATION: CHEST SINGLE (PORTABLE) COMPARISON: Chest x-ray 12/21/2017 INDICATION: Midsternal chest pain ^ERMD ORDER ^[id number] ^0150 ^Y DISCUSSION: Frontal view of the chest obtained at 0159 hours. HEART AND MEDIASTINUM: The heart is enlarged. The aorta is tortuous LINES: MediPort catheter terminates in the SVC, stimulator in the lower thoracic spine is stable. LUNGS: The lungs are well inflated and clear. Pulmonary vasculature is prominent. No interstitial edema. PLEURA: No pleural effusion or pneumothorax. BONES AND SOFT TISSUES: No focal osseous lesion. Surgical clips in the lower neck are stable. IMPRESSION: Cardiomegaly and pulmonary vascular congestion. Signed by: Dr. Darrell Alegria MD on 04/23/2019 2:10 AM
--- OUTSIDE RECORDS SUMMARY | 2019-04-23 02:31 | XMS REPORT | Clinical Summary ---
Author Author [facility] Organization [facility] Address Unknown Phone Unavailable Care Team Providers Care Personnel Generalist Manager Name Role Phone Praveen Foss MD PCP [...] 0 tablet mouth every morning. Active thyroid,pork ([employer] THYROID Take by mouth 0 ORAL) every [...] Ольга Chavez MD UPJ obstruction, congenital 12/08/2018 [facility] General Internal Medicine - Encounter 12/10/2018 Karla [...] / Lot Implanted Type Area Manufactur er [id number] / / Clip Ligtng Hem-O-Carmen Endoscpc Aplr Surgical N/A: N/A ERIK Pool Lg - [id number] Implants; CLOSURE Implanted: Qty: 1 on 12/08/2018 by Expanders; Ольга Beltre MD at [facility] Extenders; Surgical Wires [id number] / / Clip Ligtng Hem-O-Carmen Endoscpc Aplr Surgical N/A: N/A ERIK Pool Lg - [id number] Implants; CLOSURE Implanted: Qty: 1 on 12/08/2018 by Expanders; Ольга Beltre MD at [facility] Extenders; Surgical Wires 07/12/2021 192 132 / / [id number] Stent Uretl Polrs Ult 2drmtr 6fr Urological N/A: N/A BSC 24cm Hydroplus W/O Gw - [id number] Implants UROLOGY Implanted: Qty: 1 on 10/27/2018 by or Ольга Burgos MD at [facility] 09/12/2021 192 133 / / [id number] Stent Roberto Carlos Frankst 2drmtr 6fr Urological Right: N/A BSC 26cm Hydroplus W/O Gw - [id number] Implants UROLOGY Implanted: Qty: 1 on 12/08/2018 by or Ольга Burgos MD at [facility] Procedures Comments Procedure Name Priority Date/Time Associated [...] POC GLUCOSE Routine 12/08/2018 1:49 PM CDT VA AN ELECTIVE Routine 12/08/2018 ENDOTRACHEAL AIRWAY 9:16 [...] HOUR Routine 10/27/2018 Pain 1:55 PM CDT VA AN ELECTIVE Routine 10/27/2018 ENDOTRACHEAL AIRWAY 1:45 [...] VW Routine 10/04/2018 Preop testing 12:52 PM DIRECTOR MEDICAL SURGICAL ECG PRE/POST OP Routine 10/04/2018 Preop testing 11:36 AM DIRECTOR MEDICAL SURGICAL HEMOGLOBIN A1C Routine 10/04/2018 Preop testing 11:29 AM DIRECTOR MEDICAL SURGICAL MICROSCOPIC EXAMINATION Routine 10/04/2018 10:43 AM DIRECTOR MEDICAL SURGICAL URINALYSIS, AUTOMATED Routine 10/04/2018 WITH MICROSCOPY 10:43 AM DIRECTOR MEDICAL SURGICAL URINE CULTURE Routine 10/04/2018 Hydronephrosis of right 10:43 AM DIRECTOR MEDICAL SURGICAL kidney ESTIMATED GFR Routine 10/04/2018 9:48 AM DIRECTOR MEDICAL SURGICAL COMPREHENSIVE METABOLIC Routine 10/04/2018 Preop testing PANEL 9:48 AM DIRECTOR MEDICAL SURGICAL HC COMPLETE BLD COUNT Routine 10/04/2018 Preop testing W/AUTO DIFF 9:48 AM DIRECTOR MEDICAL SURGICAL PARTIAL THROMBOPLASTIN Routine 10/04/2018 Preop testing TIME (PTT) 9:48 AM DIRECTOR MEDICAL SURGICAL PROTHROMBIN TIME WITH INR Routine 10/04/2018 Preop testing 9:48 AM DIRECTOR MEDICAL SURGICAL POC URINALYSIS DIPSTICK Routine 10/04/2018 Hydronephrosis of right 8:22 AM DIRECTOR MEDICAL SURGICAL kidney NM RENAL SCAN WFLOW FUNCT Routine 09/27/2018 Hydronephrosis of right SGL INT W/MAG 3 9:43 AM DIRECTOR MEDICAL SURGICAL kidney POC URINALYSIS DIPSTICK Routine 09/20/2018 Hydronephrosis of right 9:06 AM DIRECTOR MEDICAL SURGICAL kidney Right flank pain US RENAL Routine 09/17/2018 Other hydronephrosis 4:50 PM DIRECTOR MEDICAL SURGICAL after 04/22/2018 Results * POC glucose (12/10/2018 12:17 PM CDT) Only the most recent of 14 results within the time period is included. [facility] POC glucose 129 (H) 65 - 99 mg/dL [facility] [facility] Comment: [place] Notified RN HOSPITAL Meter ID: [id number] Sliver Former: Bairon Gonzales Specimen Performing Organization Address City/[facility]/Zipcode Phone Number [facility]PART[facility] OF [address] [place] [address] PATHOLOGY AND GENOMIC MEDICINE [address] * Hemoglobin & hematocrit (12/10/2018 8:50 AM CDT) Only the most recent of 3 results within the time period is included. [facility] HGB 9.3 (L) 12.0 - 16.0 g/dL [facility] HCT 30.0 (L) 37.0 - 47.0 % [facility] Specimen Blood Performing Organization Address City/[facility]/Zipcode Phone Number [facility] OF [address] [place] [address] PATHOLOGY AND GENOMIC MEDICINE [address] * Creatinine level, misc fluid (12/10/2018 8:50 AM CDT) [facility] Fluid type Peritoneal [facility] Creatinine, 1.4 mg/dL [facility] [place] [facility] fluid Comment: [place] The reference interval(s) and HOSPITAL other method performance specifications have not been established for this body fluid. The test results must be integrated into the clinical context for interpretation. Specimen Fluid Performing Organization Address City/[facility]/Zipcode Phone Number [facility] [address] * Estimated GFR (12/10/2018 4:00 AM CDT) Only the most recent of 7 results within the time period is included. [facility] Estimated GFR 40 (A) mL/min/1.73 m2 [place] Comment: [facility] rpretation G1 >=90 Normal or high G2 60-89Mildly decreased A9z88-60 Mildly to moderately decreased G6y83-65 Moderately to severely decreased G4 15-29Severely decreased G5 <15Kidney failure The eGFR was calculated using the Chronic Kidney Disease Epidemiology Collaboration (CKD-EPI) equation. Interpretation is based on recommendations of the National Kidney Foundation-Kidney Disease Outcomes Quality Initiative (NKF-KDOQI) published in 2014. Specimen Plasma specimen Performing Organization Address [facility] Cent[facility]ode Phone Number [facility] [address] * Basic metabolic panel (12/10/2018 4:00 AM CDT) Only the most recent of 3 results within the time period is included. [facility] Sodium 137 135 - 148 mEq/L [facility] Potassium 4.1 3.5 - 5.0 mEq/L [facility] Chloride 101 98 - 112 mEq/L [facility] CO2 25 24 - 31 mEq/L [facility] Anion gap 11@ANIO 7 - 15 mEq/L [facility] BUN 23 8 - 23 mg/dL [facility] Creatinine 1.36 (H) 0.50 - 0.90 mg/dL [facility] Glucose 122 (H) 65 - 99 mg/dL [facility] Calcium 7.5 (L) 8.8 - 10.2 mg/dL [facility] Specimen Plasma specimen Performing Organization Address City/[facility]/Zipcode Phone Number [facility] [place] [address] PATHOLOGY AND GENOMIC MEDICINE [address] * CBC with platelet and differential (12/10/2018 3:30 AM CDT) Only the most recent of 4 results within the time period is included. WBC 6.09 4.50 - 11.00 k/uL [facility] RBC 2.76 (L) 4.20 - 5.50 m/uL [facility] HGB 8.8 (L)Comment: Results double 12.0 - 16.0 g/dL [facility] HCT 28.1 (L) 37.0 - 47.0 % [facility] MCV 101.8 (H) 82.0 - 100.0 fL [facility] MCH 31.9 27.0 - 34.0 pg [facility] MCHC 31.3 31.0 - 37.0 g/dL [facility] RDW - SD 64.0 (H) 37.0 - 55.0 fL [facility] MPV 9.6 8.8 - 13.2 fL [facility] Platelet count 221 150 - 400 k/uL [facility] Nucleated RBC 0.00 /100 WBC [facility] Neutrophils 64.1 39.0 - 69.0 % [facility] Lymphocytes 21.2 (L) 25.0 - 45.0 % [facility] Monocytes 12.8 (H) 0.0 - 10.0 % [facility] Eosinophils 1.0 0.0 - 5.0 % [facility] Basophils 0.2 0.0 - 1.0 % [facility] Immature 0.7Comment: "Immature 0.0 - 1.0 % [facility] granulocytes granulocytes" (promyelocytes, [facility] myelocytes, metamyelocytes) HOSPITAL Specimen Blood Performing Organization Address City/State/Zipcode Phone Number [address] [address] PATHOLOGY AND GENOMIC MEDICINE [address] * Smear review (12/09/2018 5:45 AM CDT) Platelet slide Gene adequate [facility] Enlarged Moderate (A) [facility] Specimen Performing Organization Address City/[facility]/Zipcode Phone Number [place] [phone] PATHOLOGY AND GENOMIC MEDICINE [facility] [place] [address] [place] [address] HOSPITAL * XR Chest 1 Vw Portable [...] without evidence of a suspicious focal lesion. [id number] Procedure Note Interface, Radiology Results Incoming - [...] without evidence of a suspicious focal lesion. [id number] Performing Organization Address City/[facility] Cent[facility]ode Phone Number [facility] [address] [place] [address] * XR Abdomen 1 Vw Portable (12/08/2018 3:01 PM CDT) Specimen Narrative Performed At EXAMINATION:XR ABDOMEN 1 VW PORTABLE RADIANT CLINICAL HISTORY:eval stent placement COMPARISON:None. IMPRESSION: A stent is present in the right ureter There is a nonspecific bowel gas pattern Moderate amount retained stool is present throughout the colon [id number] Procedure Note Interface, Radiology Results Incoming - 12/08/2018 3:11 PM CDT EXAMINATION: XR ABDOMEN 1 VW PORTABLE CLINICAL HISTORY: eval stent placement COMPARISON: None. IMPRESSION: A stent is present in the right ureter There is a nonspecific bowel gas pattern Moderate amount retained stool is present throughout the colon [id number] Performing Organization Address City/[facility] Cent[facility]ode Phone Number [facility] [address] [place] [address] * Surgical pathology request (12/08/2018 2:59 PM CDT) [facility] OF PATHOLOGY AND GENOMIC MEDICINE Surgical See link below for PDF Lab [facility] pathology Report OF PATHOLOGY report AND GENOMIC MEDICINE Result status This is Final Report for [facility] [id number] OF PATHOLOGY AND GENOMIC MEDICINE Specimen Performing Organization Address City/[facility] Centercode Phone Number [facility] [address] PATHOLOGY AND [facility] * Urinalysis screen and microscopy, with reflex to culture (11/22/2018 8:55 AM CDT) Only the most recent of 2 results within the time period is included. Specimen site Clean catch [facility] Color, UA Straw [facility] Appearance, UA Clear [facility] Specific 1.012 1.001 - 1.035 [place] [facility] gravity, [facility] pH, UA 6.0 5.0 - 8.5 [facility] Protein, UA Negative Negative [facility] Glucose, UA Negative Negative [facility] Ketones, UA Negative Negative [facility] Bilirubin, UA Negative Negative [facility] Blood, UA Negative Negative [facility] Nitrite, UA Negative Negative [facility] Urobilinogen, <2.0 <2.0 [facility] Leukocyte Negative Negative [facility] [place] [facility] esterase, [facility] Epithelial <1 /HPF [facility] cells, [facility] Round <1 0 - 1 /HPF [facility] epithelial [facility] cells, HOSPITAL WBC, UA 1 0 - 4 /HPF [facility] RBC, UA 1 0 - 5 /HPF [facility] Bacteria, UA Few None seen [facility] Yeast, UA None seen [facility] Yeast with None seen [facility] [place] [facility] pseudohyphae, [facility] Hyaline casts, 3 /LPF [facility] Specimen Urine Performing Organization Address [facility] Centercode Phone Number [facility] [place] [address] PATHOLOGY AND [facility] MEDICINE [address] * Partial thromboplastin time, activated (11/22/2018 8:55 AM CDT) Only the most recent of 2 results within the time period is included. PTT 27.2 23.0 - 36.0 sec [facility] Comment: [place] PTT therapeutic range for HOSPITAL unfractionated heparin is 61.0-112.0 seconds which corresponds to Anti-Xa 0.3-0.7 U/ml. Specimen Blood Performing Organization Address City/[facility]/Zipcode Phone Number [facility] [place] [address] PATHOLOGY AND GENOMIC MEDICINE [address] * Prothrombin time with INR (11/22/2018 8:55 AM CDT) Only the most recent of 2 results within the time period is included. Pathologist [facility] Prothrombin 11.9 11.5 - 14.5 sec [facility] INR 0.9 [place] [place] Comment: [place] The International Normalized HOSPITAL Ratio (INR) is a therapeutic monitoring tool for patients who are stable on oral anticoagulant therapy. An INR of 2.0-3.0 is suggested for deep vein thrombosis/pulmonary embolism. Specimen Blood Performing Organization Address City/[facility] Centercode Phone Number [facility] [place] [address] PATHOLOGY [facility] MEDICINE [address] * CBC hemogram (11/22/2018 8:55 AM CDT) [facility] WBC 6.55 4.50 - 11.00 k/uL [facility] RBC 3.99 (L) 4.20 - 5.50 m/uL [facility] HGB 12.5 12.0 - 16.0 g/dL [facility] HCT 40.7 37.0 - 47.0 % [facility] MCV 102.0 (H) 82.0 - 100.0 fL [facility] MCH 31.3 27.0 - 34.0 pg [facility] MCHC 30.7 (L) 31.0 - 37.0 g/dL [facility] RDW - SD 62.4 (H) 37.0 - 55.0 fL [facility] MPV 9.7 8.8 - 13.2 fL [facility] Platelet count 249 150 - 400 k/uL [facility] Nucleated RBC 0.00 /100 WBC [facility] Specimen Urine Performing Organization Address City/[facility]/Zipcode Phone Number [facility] [place] [address] PATHOLOGY AND GENOMIC MEDICINE [address] * Type and screen (11/22/2018 8:55 AM CDT) ABO grouping A [facility] Rh type POS [facility] Antibody screen NEG [facility] [place] [facility] (gel) [facility] Specimen Urine Performing Organization Address City/State/Zipcode Phone Number [facility] DE[facility] OF [address] [place] [address] PATHOLOGY AND GENOMIC MEDICINE [address] * Urine culture (11/22/2018 8:55 AM CDT) Only the most recent of 3 results within the time period is included. Pathologist [facility] Urine culture SEE COMMENTComment: [facility] Bacteriuria screen negative. [facility] Specimen Performing Organization Address City/[facility]/Zipcode Phone Number [facility] DEPART[facility] OF [address] [place] [address] PATHOLOGY AND GENOMIC MEDICINE [address] * Comprehensive metabolic panel (11/22/2018 8:55 AM CDT) Only the most recent of 3 results within the time period is included. Sodium 142 135 - 148 mEq/L [facility] Potassium 4.4 3.5 - 5.0 mEq/L [facility] Chloride 100 98 - 112 mEq/L [facility] CO2 29 24 - 31 mEq/L [facility] Anion gap 13@ANIO 7 - 15 mEq/L [facility] BUN 29 (H) 8 - 23 mg/dL [facility] Creatinine 1.44 (H) 0.50 - 0.90 mg/dL [facility] Glucose 124 (H) 65 - 99 mg/dL [facility] Calcium 9.1 8.8 - 10.2 mg/dL [facility] Protein 7.5 6.3 - 8.3 g/dL [facility] [facility] Comment: [facility] 4.6-7.0 g/dL 1 week 4.4-7.6 g/dL 7 months-1year 5.1-7.3 g/dL 1-2 years5.6-7 .5 g/dL >3 years6.0-8 .0 g/dL 18-150 6.3-8.3 g/dL Albumin 3.5 3.5 - 5.0 g/dL [facility] A/G ratio 0.9 0.7 - 3.8 [facility] Alkaline 116 (H) 35 - 104 U/L [facility] phosphatase [facility] AST 25 10 - 35 U/L [facility] ALT 17 5 - 50 U/L [facility] Total bilirubin 0.5 0.0 - 1.2 mg/dL [facility] Specimen Plasma specimen Performing Organization Address City/State/Zipcode Phone Number [facility] OF [address] [place] [address] PATHOLOGY AND GENOMIC MEDICINE [facility] [address] [place] [address] [facility] * CTA Abdomen W Wo Contrast [...] anomalies of the left renal artery. IMPRESSION: [id number] Procedure Note Hm Interface, Radiology Results Incoming [...] anomalies of the left renal artery. IMPRESSION: [facility]-[id number] Performing Organization Address City/[facility]/Zipcode Phone Number [facility] [address] [place] [address] * POC creatinine (11/05/2018 8:49 AM CDT) POC creatinine 1.4 (H) 0.5 - 0.9 mg/dl [facility] Comment: [place] Meter ID: [id number] [facility] Sliver Former: Tye Archer Specimen Blood Performing Organization Address [facility]/Zipcode Phone Number [facility] DE[facility] OF [address] [place] [address] PATHOLOGY AND GENOMIC MEDICINE [facility] [place] [facility] [place] [address] [place] [address] * Urine Culture, Comprehensive (11/01/2018 9:29 AM CDT) Pathologist [facility] Urine culture Escherichia coli [facility] 3,000 Colonies/mL [...] per mL Specimen Narrative Performed At Performed at:[address] [place] [address] [id number] Supervisor Instrument Maintenance: Italo Joyner MD, Phone:[phone] Antibiotic Method Susceptibility Organism Amoxicillin/Clavulanate S ug/mL: [...] S ug/mL: Susceptible Escherichia coli Comment: Performed at:[address] [place], [place] [id number] Supervisor Instrument Maintenance: Italo Joyner MD, Phone:[phone] Performing Organization Address City/State/Zipcode Phone Number [facility] [...] Urine Culture. Specimen Narrative Performed At Performed at:[address] [place], [place] [id number] Supervisor Instrument Maintenance: Italo Joyner MD, Phone:[phone] Performing Organization Address [facility] Phone Number [facility] * Microscopic Examination (11/01/2018 [...] seen/Few [facility] Specimen Narrative Performed At Performed at:[address] [place], [place] [address]CO[id number] Supervisor Instrument Maintenance: Italo Joyner MD, Phone:[phone] Performing Organization Address [facility] Phone Number [facility] * POC urinalysis dipstick [...] 3:55 AM CDT) Gram stain No WBC's [facility] [place] [facility] result Few Gram positive rods [facility] Comment: HOSPITAL Specimen Information Specimen Source: Urine Specimen Site: Clean catch Specimen Urine Performing Organization Address City/State/Zipcode Phone Number [facility] OF [address] [place] [address] PATHOLOGY AND GENOMIC MEDICINE [facility] [place] [facility] [place] [address] [place] [address] HOSPITAL * CT Abdomen Pelvis Wo Contrast [...] If the patient cannot void, consider catheterization. [facility]-[id number] Procedure Note Interface, Radiology Results Incoming - [...] If the patient cannot void, consider catheterization. [facility]-[id number] Performing Organization Address City/State/Zipcode Phone Number [facility] [address] [place] [address] * Lipase level (10/29/2018 1:20 AM CDT) Lipase 21 13 - 60 U/L [facility] Specimen Plasma specimen Performing Organization Address City/State/Zipcode Phone Number [facility] DEPARTMENT OF [address] [place] [address] PATHOLOGY AND GENOMIC MEDICINE [address] * Amylase level (10/29/2018 1:20 AM CDT) Amylase 37 28 - 100 U/L [facility] Specimen Plasma specimen Performing Organization Address City/State/Zipcode Phone Number [facility] DE[facility] OF [address] [place] [address] PATHOLOGY AND GENOMIC MEDICINE [address] * [place] < 1 Hour (10/27/2018 1:55 PM CDT) Specimen Narrative Performed At IMPRESSION:C-arm Fluoroscopy under 1 hour was provided in the OR for the [facility] referring physician.A radiologist was not present during [...] provider for procedure details. Performing Organization Address City/[facility] Centercode Phone Number [facility] [address] [place] [address] * XR Chest 2 Vw (10/04/2018 12:52 PM DIRECTOR MEDICAL SURGICAL) Specimen Narrative Performed At EXAMINATION:[facility]: 68 years Female Z01.818 Encounter [...] the spine. Likely old left rib fracture. [id number] Procedure Note Interface, Radiology Results Incoming - 10/04/2018 1:03 PM DIRECTOR MEDICAL SURGICAL EXAMINATION: XR CHEST 2 VW CLINICAL HISTORY: [...] the spine. Likely old left rib fracture. [facility]-[id number] Performing Organization Address [facility]/Zipcode Phone Number [facility] [address] [place] [address] * ECG Pre/Post Op (10/04/2018 11:36 AM DIRECTOR MEDICAL SURGICAL) Pathologist [facility] Ventricular 49 [facility] MUSE rate Atrial rate 49 [facility] MUSE VA interval 130 [facility] MUSE QRSD interval 90 [facility] MUSE QT interval 490 [facility] MUSE QTC interval 442 [facility] MUSE P axis 1 21 [facility] MUSE QRS axis 1 -1 [facility] MUSE T wave axis 15 [facility] MUSE EKG impression Marked sinus [facility] MUSE bradycardia-Abnormal ECG-No previous ECGs available- Specimen Narrative Performed At Performing Organization Address [facility] Phone Number [facility] MUSE [address] [place] [address] * Hemoglobin A1c (10/04/2018 11:29 AM DIRECTOR MEDICAL SURGICAL) Pathologist [facility] Hemoglobin A1C 6.8 (H) 4.0 - 5.6 % [facility] Comment: [place] HbA1c cutoffs for diagnosing HOSPITAL diabetes: 4.0% - 5.6%=normal 5.7% - 6.4%=increased risk for diabetes (prediabetes) >=6.5%=diabetes Goals for glycemic control (ADA 2016) < 7.0%Target for non adults with diabetes. More or less stringent targets may be appropriate for individual patients. <7.5% Target for Children and adolescents with type 1 diabetes. Specimen Blood Performing Organization Address [facility]/Zipcode Phone Number [facility] DE[facility] [address] [address] PATHOLOGY AND GENOMIC MEDICINE [facility] [place] [address] [place] [address] HOSPITAL * Urinalysis, automated with microscopy (10/04/2018 10:43 AM DIRECTOR MEDICAL SURGICAL) [facility] [facility] Specific 1.010 1.005 - 1.030 [facility] gravity, [...] Narrative Performed At Performed at: - [facility] [address], [id number] Supervisor Instrument Maintenance: Italo Joyner MD, Phone:[phone] Performing Organization Address City/State/Zipcode Phone Number [facility] * NM Renal Scan Wflow Funct Sgl Int W/Mag 3 (09/27/2018 9:43 AM DIRECTOR MEDICAL SURGICAL) Specimen Narrative Performed At PROCEDURE:NM RENAL SCAN [...] relatively well, given borderline reduced renal function. [facility]-[id number] Procedure Note Interface, Radiology Results Incoming - 09/27/2018 10:20 AM DIRECTOR MEDICAL SURGICAL PROCEDURE: NM RENAL SCAN WFLOW FUNCT SGL [...] relatively well, given borderline reduced renal function. [facility]-[id number] Performing Organization Address City/State/Zipcode Phone Number [facility] [address] [place] [address] * [place] Renal (09/17/2018 4:50 PM DIRECTOR MEDICAL SURGICAL) Specimen Narrative Performed At EXAM: US RENAL [facility] CLINICAL DATA:N13.39 Other hydronephrosis, hydronephrosis COMPARISON: NONE. FINDINGS: 1.Right kidney is 11.2 x 5.9 x 5.8 cm. Renal cortex is 1.6 cm. Mild pelviectasis without significant hydronephrosis. No focal mass identified. 2.Left kidney is 9.9 x 5.3 x 4.8 cm. Renal cortex is 1.6 cm. No mass or hydronephrosis. 3.Bladder is under distended. IMPRESSION: 1. Mild right-sided pelviectasis without significant hydronephrosis. [facility]-[id number] Procedure Note Interface, Radiology Results Incoming - 09/17/2018 5:31 PM DIRECTOR MEDICAL SURGICAL EXAM: US RENAL CLINICAL DATA: N13.39 Other [...] 1. Mild right-sided pelviectasis without significant hydronephrosis. [facility]-[id number] Performing Organization Address City/State/Zipcode Phone Number [facility] [address] [place] [address] after 04/22/2018 Insurance Type Payer Benefit Subscriber ID Effective Phone Address Plan / Dates Group [facility] MEDICARE AARP xxxxxxxxx [id number] MEDICARE resent COMPLETE [facility] Advance Directives For more information, please contact: [phone] Patient Roll Contour Grinder Explanation Type Date Recorded Advance Directives, 01/25/2018 7:34 AM Living Will and Medical Power of Supervisor Special Effects Advance Directives, 02/19/2018 10:37 AM Living Will and Medical Power of Supervisor Special Effects POA 12/11/17 Advance Directives, 12/20/2018 11:54 AM Living Will and Medical Power of Supervisor Special Effects
--- OUTSIDE RECORDS SUMMARY | 2019-04-23 02:33 | XMS REPORT | Continuity of Care Document ---
Author Author [facility] Organization [facility] Address Unknown Phone Unavailable Care Team Providers Care Bilingual School Psychologist Name Role Phone [place] Information [place] Unavailable Unavailable Problems Problem Status Onset Date Classification Date Reported Comments Source INFECTION OF INTRATHECAL PUMP Active 02/24/[address] [facility] [address] VILLALOBOS-INFECTION ON BACK Active 02/24/2017 [facility] G89.4 - CHRONIC PAIN SYNDROME Active 02/20/2017 [facility] [place] CHRONIC PAIN SYNDROME Active 01/26/2017 [facility] UNK Active 11/14/2016 [facility] VERENICE/CPAP/LECHIN TO READ Active 01/27/2003 [facility] Acquired hypothyroidism (disorder) Active Problem 01/16/2018 [facility] Anxiety (finding) Resolved Problem 01/16/2018 [facility] Diabetes mellitus (disorder) Active Problem 01/16/2018 [facility] Dislocation of temporomandibular joint (disorder) Active Problem 01/16/2018 [facility] Fibromyalgia (disorder) Active Problem 01/16/2018 [facility] Gastroesophageal reflux disease (disorder) Resolved Problem 01/16/2018 [facility] Gout (disorder) Resolved Problem 01/16/2018 [facility] History of malignant neoplasm of thyroid (situation) Active Problem 01/16/2018 [facility] Hypertensive disorder, systemic arterial (disorder) Active Problem 01/16/2018 [facility] Depressive disorder (disorder) Resolved Problem 01/16/2018 [facility] Osteoarthritis (disorder) Active Problem 01/16/2018 [facility] Serum creatinine raised (finding) Active Problem 01/16/2018 [facility] CHRONIC PAIN SYNDROME Active [facility] RADICULOPATHY, LUMBAR REGION Active [facility] POSTLAMINECTOMY SYNDROME, 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 [facility] I/I REACT D/T OTHER NRV SYS DEVICE, IMPL Active [facility] Medications Medication Details Route Status Patient Instructions Ordering Provider Order Date Source ceFAZolin 2 g/100 mL-NaCl 0.9% intravenous solution 2 fq=772 mL, IVPB, ABXQ8H, 0 Refill(s) Active 03/03/2017 [facility] Acetaminophen 300 MG / Codeine Phosphate 30 MG Oral Tablet [Tylenol with Codeine #3] 1 tab, PO, Q6H, PRN Pain Score 4-6, X 7 day, # 28 tab, 0 Refill(s) Active 03/03/2017 [facility] Benadryl 25 mg, 1 cap, Route: PO, Drug form: CAP, Q4H, Dosing Weight 118.182, kg, Priority: NOW, Start date: 03/02/17 19:50:00 CDT, Duration: 3 doses or times, Stop date: 03/03/17 0:00:00 CDTNotes: (Same as: Benadryl) No Longer Active 03/03/2017 [facility] Ancef 2 gm, 100 mL, Route: IVPB, Drug form: INJ, ABXQ8H, Dosing Weight 118.182, kg, Priority: STAT, Start date: 03/02/17 15:26:00 CDT, Duration: 30 day, Stop date: 04/01/17 7:26:00 CDT, ABX 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 Give with food or milk. No Longer Active 03/01/2017 [facility] vancomycin + sodium chloride 0.9% 500 mL INJ (for IV set) 500 mL 1,750 mg, Route: IVPB, Q24H, Start date: 02/28/17 19:00:00 CDT, Duration: 30 day, Stop date: 03/29/17 19:00:00 CDT, ABX Indication: BacteremiaNotes: TIME CRITICAL MEDICATION (Same As: Vancocin) Infusion rate 2001 mg: infuse over 2.5 hours MEDICATION WASTE Product Size: 1000 mg Product Wasted: ___ mg No Longer Active 03/01/2017 [facility] vancomycin 1.5 gm, 250 mL, Route: IVPB, Drug form: INJ, [id number], Start date: 02/28/17 17:00:00 CDT, Duration: 30 day, Stop date: 03/29/17 17:00:00 CDT, ABX Indication: BacteremiaNotes: TIME CRITICAL MEDICATION Same as: Vancocin-NS (premixed) Infusion rate 2001 mg: infuse over 2.5 hours Inactive 02/28/2017 [facility] tizanidine 4 mg, 1 tab, Route: PO, Drug form: TAB, Q8H, Dosing Weight 118.182, kg, PRN as needed for muscle spasm, Start date: 02/28/17 16:27:00 CDT, Duration: 30 day, Stop date: 03/30/17 16:26:00 CDTNotes: (Same As: Zanaflex) No Longer Active 02/28/2017 [facility] Guaifenesin 200 mg, 1 tab, Route: PO, Drug form: TAB, QID, Dosing Weight 118.182, kg, Start date: 02/28/17 13:00:00 CDT, Duration: 30 day, Stop date: 03/30/17 9:00:00 CDTNotes: (Same as: Organidin NR) No Longer Active 02/28/2017 [facility] magnesium citrate 58.2 MG/ML Oral Solution 150 ml, Route: PO, Drug Form: LIQ, Dosing Weight 118.182, kg, ONCE, Start date: 02/28/17 11:55:00 CDT, Stop date: 02/28/17 11:55:00 CDTNotes: (Same as: Citrate of Magnesia) Concentration: 1.745 gm / 30 mL Inactive 02/28/2017 [facility] Spironolactone 25 mg, 1 tab, Route: PO, Drug form: TAB, Daily, Dosing Weight 118.182, kg, Start date: 02/28/17 9:00:00 CDT, Duration: 30 day, Stop date: 03/29/17 9:00:00 CDTNotes: (Same As: Aldactone) No Longer Active 02/28/2017 [facility] Thyroxine 150 microgram, 1 tab, Route: PO, Drug form: TAB, [id number], Dosing Weight 118.182, kg, Start date: 02/28/17 6:30:00 CDT, Duration: 30 day, Stop date: 03/29/17 6:30:00 CDTNotes: Take 1 hour before or 2 hours after meal; Enteral feeds may interefere with the absorption of this medication. (Same as: Levothroid) No Longer Active 02/28/2017 [facility] alteplase 2 mg injection 1 mg, 1 [...] mg Product Wasted: ___ mg Inactive 02/28/2017 [facility] Morphine 6 mg, 1.5 mL, Route: IVP, Drug form: INJ, Q4H, Dosing Weight 118.182, kg, PRN Pain Score 7-10, Start date: 02/27/17 14:44:00 CDT, Duration: 30 day, Stop date: 03/29/17 14:43:00 CDTNotes: (Same as:MORPhine Sulfate) No Longer Active 02/27/2017 [facility] Docusate Sodium 100 MG Oral Capsule [Colace] 100 mg, 1 cap, Route: PO, Drug form: CAP, BID, Dosing Weight 118.182, kg, Start date: 02/26/17 17:00:00 CDT, Duration: 30 day, Stop date: 03/28/17 9:00:00 CDTNotes: (Same as: Colace) (Do Not Crush) No Longer Active 02/26/2017 [facility] vancomycin + sodium chloride 0.9% 500 mL INJ (for IV set) 500 mL 2,000 mg, Route: IVPB, Q48H, Start date: 02/26/17 17:00:00 CDT, Duration: 30 day, Stop date: 03/26/17 17:00:00 CDT, ABX Indication: BacteremiaNotes: TIME CRITICAL MEDICATION (Same As: Vancocin) Infusion rate 2001 mg: infuse over 2.5 hours MEDICATION WASTE Product Size: 1000 mg Product Wasted: ___ mg No Longer Active 02/26/2017 [facility] Famotidine 20 MG Oral Tablet [Pepcid] 20 mg, 1 tab, Route: PO, Drug form: TAB, Q24H, Dosing Weight 118.182, kg, Start date: 02/26/17 17:00:00 CDT, Duration: 30 day, Stop date: 03/27/17 17:00:00 CDTNotes: (Same as: Pepcid) No Longer Active 02/26/2017 [facility] Acetaminophen 300 MG / Codeine Phosphate 30 MG Oral Tablet [Tylenol with Codeine #3] 2 tab, Route: PO, Drug Form: TAB, Dosing Weight 118.182, kg, Q6H, PRN Pain Score 4-6, Start date: 02/26/17 16:50:00 CDT, Duration: 30 day, Stop date: 03/28/17 16:49:00 CDTNotes: Do not exceed 4gm/day of acetaminophen. (Same as: Tylenol with Codeine # 3) No Longer Active 02/26/2017 [facility] acetaminophen-codeine 300 mg-30 mg oral tablet 1 tab, Route: PO, Drug Form: TAB, Q6H, PRN Pain Score 4-6, Start date: 02/26/17 16:26:00 CDT, Duration: 30 day, Stop date: 03/28/17 16:25:00 CDTNotes: Do not exceed 4gm/day of acetaminophen. (Same as: Tylenol with Codeine # 3) Inactive 02/26/2017 [facility] Acetaminophen 300 MG / Codeine Phosphate 60 MG Oral Tablet [Tylenol with Codeine #4] 1 tab, Route: PO, Drug Form: TAB, Dosing Weight 118.182, kg, Q6H, PRN Pain Score 4-6, Start date: 02/26/17 16:16:00 CDT, Duration: 30 day, Stop date: 03/28/17 16:15:00 CDT Inactive 02/26/2017 [facility] neostigmine (ANES) Route: IV, Drug form: INJ, ONCE, Stop date: 02/26/17 14:23:00 CDT Inactive 02/26/2017 [facility] glycopyrrolate (ANES) Route: IV, Drug form: INJ, ONCE, Stop date: 02/26/17 14:23:00 CDT Inactive 02/26/2017 [facility] 1/2NS + KCL 20mEq/L 1000ml (Premix) 1,000 mL 1,000 mL, Rate: 75 ml/hr, Infuse over: 13.3 hr, Route: IV, Dosing Weight 118.182 kg, Total Volume: 1,000, Start date: 02/26/17 14:08:00 CDT, Duration: 30 day, Stop date: 03/28/17 14:07:00 CDTNotes: PREMIX IV - Do Not Alter WASTE: F/P - Sink; E - Municipal Trash Bin No Longer Active 02/26/2017 [facility] Zofran 4 mg, 1 tab, Route: PO, Drug form: TAB, Q8H, Dosing Weight 118.182, kg, PRN Nausea, Start date: 02/26/17 14:08:00 CDT, Duration: 30 day, Stop date: 03/28/17 14:07:00 CDTNotes: (Same as: Zofran) No Longer Active 02/26/2017 [facility] Promethazine 6.25 mg, Route: IVPB, ONCE, Dosing Weight 118.182, kg, PRN Nausea & Vomiting, Start date: 02/26/17 13:46:00 CDT Inactive 02/26/2017 [facility] Labetalol 10 mg, Route: IVP, Q5Min, Dosing Weight 118.182, kg, PRN Elevated BP, Start date: 02/26/17 13:46:00 CDT, Duration: 5 doses or times, Stop date: Limited # of times Inactive 02/26/2017 [facility] Dexamethasone 4 mg, Route: IVP, ONCE, Dosing Weight 118.182, kg, PRN Nausea & Vomiting, Start date: 02/26/17 13:46:00 CDT Inactive 02/26/2017 [facility] Meperidine 12.5 mg, Route: IVP, Q30Min, Dosing Weight 118.182, kg, PRN Other -See Comment, For shivering, Start date: 02/26/17 13:46:00 CDT, Duration: 2 doses or times, Stop date: Limited # of times Inactive 02/26/2017 [facility] Ondansetron 4 mg, Route: IVP, ONCE, Dosing Weight 118.182, kg, PRN Nausea & Vomiting, Start date: 02/26/17 13:46:00 CDT Inactive 02/26/2017 [facility] Naloxone 0.4 mg, Route: IVP, Q2MIN, Dosing Weight 118.182, kg, PRN Narcotic Reversal, Start date: 02/26/17 13:46:00 CDT, Duration: 8 doses or times, Stop date: Limited # of times Inactive 02/26/2017 [facility] Flumazenil 0.2 mg, Route: IVP, PRN, Dosing Weight 118.182, kg, PRN Benzodiazepine Reversal, Initial dose, Start date: 02/26/17 13:46:00 CDT, Duration: 30 day, Stop date: 03/28/17 13:45:00 CDT Inactive 02/26/2017 [facility] Morphine 4 mg, Route: IVP, Q5Min, Dosing Weight 118.182, kg, PRN Pain Score 7-10, Start date: 02/26/17 13:46:00 CDT, Duration: 3 doses or times, Stop date: Limited # of times Inactive 02/26/2017 [facility] Acetaminophen 1,000 mg, Route: IVPB, Drug form: INJ, ONCE, Dosing Weight 118.182, kg, PRN Pain Score 1-3, Start date: 02/26/17 13:46:00 CDT, Duration: 1 doses or times, Stop date: Limited # of times Inactive 02/26/2017 [facility] midazolam (ANES) Route: IV, Drug form: SOLN, ONCE, Stop date: 02/26/17 13:07:00 CDT Inactive 02/26/2017 [facility] ePHEDrine (ANES) Route: IV, Drug form: INJ, ONCE, Stop date: 02/26/17 12:42:00 CDT Inactive 02/26/2017 [facility] rocuronium (ANES) Route: IV, Drug form: INJ, ONCE, Stop date: 02/26/17 12:27:00 CDT Inactive 02/26/2017 [facility] fentaNYL (ANES) Route: IV, Drug form: INJ, ONCE, Stop date: 02/26/17 12:22:00 CDT Inactive 02/26/2017 [facility] lidocaine (ANES) Route: IV, Drug form: INJ, ONCE, Stop date: 02/26/17 12:22:00 CDT Inactive 02/26/2017 [facility] propofol (ANES) Route: IV, Drug form: INJ, ONCE, Stop date: 02/26/17 12:22:00 CDT Inactive 02/26/2017 [facility] LR 1000 mL INJ (ANES) Route: IV, Total Volume: 1,000, Start date: 02/26/17 11:21:00 CDT, Stop date: 02/26/17 12:21:00 CDT Inactive 02/26/2017 [facility] metoprolol extended release 25 mg, 1 tab, Route: PO, Drug form: ERTAB, Daily, Start date: 02/26/17 9:00:00 CDT, Duration: 30 day, Stop date: 03/27/17 9:00:00 CDTNotes: (Same as: Toprol XL) Do Not Crush No Longer Active 02/26/2017 [facility] Allopurinol 300 mg, 1 tab, Route: PO, Drug form: TAB, Daily, Dosing Weight 118.182, kg, Start date: 02/26/17 9:00:00 CDT, Duration: 30 day, Stop date: 03/27/17 9:00:00 CDTNotes: (Same as: Zyloprim) No Longer Active 02/26/2017 [facility] CHROMIUM PICOLINATE 2,000 mg, Route: PO, Daily, Dosing Weight 118.182, kg, Start date: 02/26/17 9:00:00 CDT, Duration: 30 day, Stop date: 03/27/17 9:00:00 CDT No Longer Active 02/26/2017 [facility] Vitamin D3 10,000 IntlUnit, 10 tab, Route: PO, Drug form: TAB, Daily, Dosing Weight 118.182, kg, Start date: 02/26/17 9:00:00 CDT, Duration: 30 day, Stop date: 03/27/17 9:00:00 CDTNotes: Same as : Vitamin D3 No Longer Active 02/26/2017 [facility] Phenergan 12.5 mg, 1 tab, Route: PO, Drug form: TAB, ONCE, Dosing Weight 118.182, kg, PRN Nausea & Vomiting, Priority: STAT, Start date: 02/25/17 21:59:00 CDTNotes: (Same as: Phenergan) Inactive 02/26/2017 [facility] temazepam 15 mg oral capsule 15 mg=1 cap, PO, Bedtime, PRN Sleep, # 14 tab, 0 Refill(s) Active 02/26/2017 [facility] metoprolol tartrate 50 mg, 1 tab, Route: PO, Drug form: TAB, Q12H, Dosing Weight 118.182, kg, Start date: 02/25/17 21:00:00 CDT, Duration: 30 day, Stop date: 03/27/17 9:00:00 CDTNotes: (Same as: Lopressor) No Longer Active 02/26/2017 [facility] Levemir FlexPen 62 unit, 0.62 mL, Route: SUB-Q, Drug form: INJ, Bedtime, Start date: 02/25/17 21:00:00 CDT, Duration: 30 day, Stop date: 03/26/17 21:00:00 CDTNotes: Same as Levemir Do not hold insulin without contac ting prescriber WASTE: F/P - Black; E - Municipal Trash Bin "single patient use only" No Longer Active 02/26/2017 [facility] Trazodone Hydrochloride 100 MG Oral Tablet 100 mg, 2 tab, Route: PO, Drug form: TAB, Bedtime, Dosing Weight 118.182, kg, Start date: 02/25/17 21:00:00 CDT, Duration: 30 day, Stop date: 03/26/17 21:00:00 CDTNotes: (Same As: Desyrel) No Longer Active 02/26/2017 [facility] tizanidine 2 mg, 0.5 tab, Route: PO, Drug form: TAB, Bedtime, Dosing Weight 118.182, kg, Start date: 02/25/17 21:00:00 CDT, Duration: 30 day, Stop date: 03/26/17 21:00:00 CDTNotes: (Same As: Zanaflex) No Longer Active 02/26/2017 [facility] Insulin Glargine 100 UNT/ML Injectable Solution [Lantus] 62 unit, Route: SUB-Q, Drug form: SOLN, Bedtime, Dosing Weight 118.182, kg, Start date: 02/25/17 21:00:00 CDT, Duration: 30 day, Stop date: 03/26/17 21:00:00 CDT Inactive 02/26/2017 [facility] vancomycin + sodium chloride 0.9% 500 mL INJ (for IV set) 500 mL 1,750 mg, Route: IVPB, [id number], Start date: 02/25/17 17:00:00 CDT, Duration: 30 day, Stop date: 03/26/17 17:00:00 CDT, ABX Indication: BacteremiaNotes: TIME CRITICAL MEDICATION (Same As: Vancocin) Infusion rate 2001 mg: infuse over 2.5 hours MEDICATION WASTE Product Size: 1000 mg Product Wasted: ___ mg No Longer Active 02/25/2017 [facility] cefepime + sodium chloride 0.9% INJ 100 mL 2 gm, Route: IVPB, [id number], Dosing Weight 118.182, kg, (CrCl 10 - 29 ml/min, 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 Do not crush No Longer Active 02/25/2017 [facility] sodium chloride 0.9% INJ 250 mL 250 mL, Rate: bilingual call center representative for use with blood product administration, Dosing Weight 118.182, kg, Route: IV, Total Volume: 250, Start Date: 02/25/17 16:34:00 CDT, Duration: 30 day, Stop date: 03/27/17 16:33:00 CDT, Replace Every: 24 hr No Longer Active 02/25/2017 [facility] NovoLog 6 unit, 0.06 mL, Route: SUB-Q, [...] days from Date No Longer Active 02/25/2017 [facility] Morphine 4 mg, 1 mL, Route: IVP, Drug form: INJ, Q4H, Dosing Weight 118.182, kg, PRN Pain Score 7-10, Start date: 02/25/17 15:00:00 CDT, Duration: 30 day, Stop date: 03/27/17 14:59:00 CDTNotes: (Same as:MORPhine Sulfate) No Longer Active 02/25/2017 [facility] Insulin, Aspart, Human 6 unit, 0.06 mL, [...] days from Date No Longer Active 02/25/2017 [facility] Dextrose 50% Syringe 12.5 gm, 25 mL, Route: IVP, Drug Form: INJ, Dosing Weight 118.182, kg, PRN, PRN Blood Glucose Results, Start date: 02/25/17 14:58:00 CDT, Duration: 30 day, Stop date: 03/27/17 14:57:00 CDT No Longer Active 02/25/2017 [facility] Glucagon 1 mg, Route: IM, Drug form: PDR/INJ, PRN, Dosing Weight 118.182, kg, PRN Blood Glucose Results, Start date: 02/25/17 14:58:00 CDT, Duration: 30 day, Stop date: 03/27/17 14:57:00 CDT No Longer Active 02/25/2017 [facility] gabapentin 900 mg, 3 cap, Route: PO, Drug form: CAP, TID, Dosing Weight 118.182, kg, Start date: 02/25/17 13:00:00 CDT, Duration: 30 day, Stop date: 03/27/17 9:00:00 CDTNotes: (Same as: Neurontin) No Longer Active 02/25/2017 [facility] tizanidine 4 mg, 1 tab, Route: PO, Drug form: TAB, Bedtime, Dosing Weight 118.182, kg, PRN as needed for muscle spasm, Start date: 02/25/17 9:05:00 CDT, Duration: 30 day, Stop date: 03/27/17 9:04:00 CDTNotes: (Same As: Zanaflex) No Longer Active 02/25/2017 [facility] Spironolactone 50 mg, 1 tab, Route: PO, Drug form: TAB, Q-M-W-F, Dosing Weight 118.182, kg, Priority: NOW, Start date: 02/25/17 9:05:00 CDT, Duration: 30 day, Stop date: 03/27/17 9:00:00 CDTNotes: (Same As: Aldacto ne) No Longer Active 02/25/2017 [facility] Metolazone 2.5 MG Oral Tablet 2.5 mg, 1 tab, Route: PO, Drug form: TAB, Q-M-W-F, Dosing Weight 118.182, kg, Priority: NOW, Start date: 02/25/17 9:04:00 CDT, Duration: 30 day, Stop date: 03/27/17 9:00:00 CDTNotes: (Same as: Zaroxolyn) Inactive 02/25/2017 [facility] Synthroid 175 microgram, 1 tab, Route: PO, Drug form: TAB, Daily, Dosing Weight 118.182, kg, Priority: NOW, Start date: 02/25/17 9:04:00 CDT, Duration: 30 day, Stop date: 03/27/17 6:30:00 CDTNotes: Take 1 hour before or 2 hours after meal; Enteral feeds may interefere with the absorption of this medication. (Same as: Levothroid, Synthroid) No Longer Active 02/25/2017 [facility] Triiodothyronine 25 microgram, 1 tab, Route: PO, Drug form: TAB, Daily, Dosing Weight 118.182, kg, Priority: NOW, Start date: 02/25/17 9:04:00 CDT, Duration: 30 day, Stop date: 03/27/17 9:00:00 CDTNotes: (Same as: Cytomel) No Longer Active 02/25/2017 [facility] Isosorbide 60 mg, 1 tab, Route: PO, Drug form: ERTAB, QAM, Dosing Weight 118.182, kg, Priority: NOW, Start date: 02/25/17 9:03:00 CDT, Duration: 30 day, Stop date: 03/27/17 9:00:00 CDTNotes: (Same as:Imdur) "Do Not Crush" Take on empty stomach/ full glass of water. Do not crush No Longer Active 02/25/2017 [facility] Morphine 2 mg, 0.5 mL, Route: IVP, Drug form: INJ, ONCE, Dosing Weight 118.182, kg, Start date: 02/25/17 0:47:00 CDT, Stop date: 02/25/17 0:47:00 CDTNotes: (Same as:MORPhine Sulfate) Inactive 02/25/2017 [facility] tizanidine 4 mg oral tablet 4 mg=1 tab, PO, Bedtime, PRN for muscle spasm, # 30 tab, 0 Refill(s) Active 02/25/2017 [facility] tapentadol 50 MG Oral Tablet [Nucynta] 50 mg=1 tab, PO, Q8H, PRN for pain, 0 Refill(s) Active 02/25/2017 [facility] cefepime 2 gm, Route: IVPB, [id number], Dosing Weight 118.182, kg, (CrCl 10 - 29 ml/min, 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 or neutropenic 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), Start date: 02/24/17 19:00:00 CDT, Duration: 7 day, Stop date: 03/02/17 19:00:00 CDT, ABX Indication: Skin/Soft Tissue InfectionNotes: (Same as: Maxipime) MEDICATION WASTE Product Size: 2000 mg Product Wasted: ___ mg Inactive 02/25/2017 [facility] cefepime 2 gm, Route: IVPB, [id number], Dosing Weight 118.182, kg, (CrCl 30 - 49 ml/min, 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 or neutropenic fever), Priority: NOW, Start date: 02/24/17 18:56:00 CDT, Duration: 30 day, Stop date: 03/26/17 6:56:00 CDT, ABX Indication: 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 MACHINE OPERATOR Infection/Epidur...Notes: (Same as: Maxipime) MEDICATION WASTE Product Size: 2000 mg Product Wasted: ___ mg No Longer Active 02/24/2017 [facility] Morphine 2 mg, 0.5 mL, Route: IVP, Drug form: INJ, Q4H, Dosing Weight 118.182, kg, PRN Pain Score 7-10, Start date: 02/24/17 18:17:00 CDT, Duration: 30 day, Stop date: 03/26/17 18:16:00 CDTNotes: (Same as:MORPhine Sulfate) No Longer Active 02/24/2017 [facility] Vancomycin 1,500 mg, Route: IVPB, Drug form: INJ, [id number], Dosing Weight 118.182, kg, Start date: 02/24/17 18:00:00 CDT, Duration: 7 day, Stop date: 03/02/17 18:00:00 CDT, ABX Indication: Skin/Soft Tissue Infection Inactive 02/24/2017 [facility] Dextrose 50% Syringe 25 gm, 50 mL, Route: IVP, Drug Form: INJ, Dosing Weight 118.182, kg, PRN, PRN Blood Glucose Results, Start date: 02/24/17 17:56:00 CDT, Duration: 30 day, Stop date: 03/26/17 17:55:00 CDT No Longer Active 02/24/2017 [facility] Glucagon 1 mg, Route: IM, Drug form: PDR/INJ, PRN, Dosing Weight 118.182, kg, PRN Blood Glucose Results, Start date: 02/24/17 17:56:00 CDT, Duration: 30 day, Stop date: 03/26/17 17:55:00 CDT No Longer Active 02/24/2017 [facility] Insulin, Aspart, Human 2 unit, 0.02 mL, Route: SUB-Q, Drug form: SOLN, TID-Before Meals, Dosing Weight 118.182, kg, PRN Blood Glucose Results, Start date: 02/24/17 17:56:00 CDT, Duration: 30 day, Stop date: 03/26/17 17:55:00 CDTNotes: Roll in palms of hands gently; Do not shake vigorously. (Same as: NovoLOG) "single patient use only" WASTE: F/P - Black; E - Nerveda Trash Bin Stable for 28 days at room temperature. Expires in days from Date No Longer Active 02/24/2017 [facility] Saline Flush 0.9% 10 ml, Route: IVP, Drug Form: INJ, Dosing Weight 118.182, kg, PRN, PRN Line Flush, Start date: 02/24/17 17:50:00 CDT, Duration: 30 day, Stop date: 03/26/17 17:49:00 CDTNotes: (Same as: BD Posiflush) No Longer Active 02/24/2017 [facility] Trazodone 50 mg, 1 tab, Route: PO, Drug form: TAB, Bedtime, Dosing Weight 118.182, kg, PRN Insomnia, Start date: 02/24/17 17:50:00 CDT, Duration: 30 day, Stop date: 03/26/17 17:49:00 CDTNotes: (Same As: Desyrel) No Longer Active 02/24/2017 [facility] Sodium Chloride 0.154 MEQ/ML Injectable Solution 1,000 mL, Rate: 125 ml/hr, Infuse over: 8 hr, Route: IV, Dosing Weight 118.182 kg, Total Volume: 1,000, Start date: 02/24/17 17:50:00 CDT, Duration: 30 day, Stop date: 03/26/17 17:49:00 CDT No Longer Active 02/24/2017 [facility] Docusate 100 mg, 1 cap, Route: PO, Drug form: CAP, BID, Dosing Weight 118.182, kg, PRN Constipation, Start date: 02/24/17 17:50:00 CDT, Duration: 30 day, Stop date: 03/26/17 17:49:00 CDTNotes: (Same as: Colace) (Do Not Crush) No Longer Active 02/24/2017 [facility] Acetaminophen 650 mg, 2 tab, Route: PO, Drug form: TAB, Q4H, Dosing Weight 118.182, kg, PRN Pain 1-3/Temp > 100.4 F, Start date: 02/24/17 17:50:00 CDT, Duration: 30 day, Stop date: 03/26/17 17:49:00 CDTNotes: Do not exceed 4 gm/day. (Same as: Tylenol) No Longer Active 02/24/2017 [facility] Hydralazine 20 mg, 1 mL, Route: IVP, Drug form: INJ, Q4H, Dosing Weight 118.182, kg, PRN Elevated BP, Start date: 02/24/17 17:50:00 CDT, Duration: 30 day, Stop date: 03/26/17 17:49:00 CDT, For SBP greater than 180N otes: (Same as: Apresoline) Push over 5 minutes No Longer Active 02/24/2017 [facility] Melatonin 3 mg, 1 tab, Route: PO, Drug form: TAB, Bedtime, Dosing Weight 118.182, kg, PRN Sleep, Start date: 02/24/17 17:50:00 CDT, Duration: 30 day, Stop date: 03/26/17 17:49:00 CDTNotes: (Same as: Melatonin) No Longer Active 02/24/2017 [facility] Ondansetron 4 mg, 2 mL, Route: IVP, Drug form: INJ, Q6H, Dosing Weight 118.182, kg, PRN Nausea & Vomiting, Start date: 02/24/17 17:50:00 CDT, Duration: 30 day, Stop date: 03/26/17 17:49:00 CDTNotes: (Same as: Zofran) MEDICATION WASTE Product Size: 4 mg Product Wasted: ___ mg No Longer Active 02/24/2017 [facility] vancomycin + sodium chloride 0.9% 500 mL INJ (for IV set) 500 mL 1,750 mg, Route: IVPB, ONCE, Start date: 02/24/17 16:54:00 CDT, Stop date: 02/24/17 16:54:00 CDT, ABX Indication: Skin/Soft Tissue InfectionNotes: TIME CRITICAL MEDICATION (Same As: Vancocin) Infusion rate 2001 mg: infuse over 2.5 hours MEDICATION WASTE Product Size: 1000 mg Product Wasted: ___ mg Inactive 02/24/2017 [facility] cefepime 2 gm, Route: IVPB, ONCE, Dosing Weight 118.182, kg, Priority: STAT, Start date: 02/24/17 16:50:00 CDT, Duration: 1 doses or times, Stop date: 02/24/17 16:50:00 CDT, ABX Indication: BacteremiaNotes: (Same as: Maxipime) MEDICATION WASTE Product Size: 2000 mg Product Wasted: ___ mg Inactive 02/24/2017 [facility] Vancomycin 1,772.73 mg, Route: IVPB, Drug form: INJ, ONCE, Dosing Weight 118.182, kg, Priority: STAT, Start date: 02/24/17 16:50:00 CDT, Duration: 1 doses or times, Stop date: 02/24/17 16:50:00 CDT, ABX Indication: Bacteremia Inactive 02/24/2017 [facility] Sodium Chloride 0.154 MEQ/ML Injectable Solution 1,000 mL, 1000 ml/hr, Infuse Over: 1 hr, Route: IV, 1,000, Drug form: INJ, ONCE, Priority: STAT, Dosing Weight 118.182 kg, Start date: 02/24/17 16:46:00 CDT, Duration: 1 doses or times, Stop date: 02/24/17 16:46:00 CDT Inactive 02/24/2017 [facility] Ondansetron 4 mg, 2 mL, Route: IVP, Drug form: INJ, ONCE, Dosing Weight 118.182, kg, Priority: STAT, Start date: 02/24/17 16:46:00 CDT, Stop date: 02/24/17 16:46:00 CDTNotes: (Same as: Zofran) MEDICATION WASTE Product Size: 4 mg Product Wasted: ___ mg Inactive 02/24/2017 [facility] Spironolactone 50 mg, 1 tab, Route: PO, Drug form: TAB, Q-M-W-F, Dosing Weight 123, kg, Start date: 02/02/17 9:00:00 CDT, Duration: 30 day, Stop date: 03/02/17 9:00:00 CDTNotes: (Same As: Aldactone) No Longer Active 02/02/2017 [facility] Heparin Lock 100 units/mL INJ solution 500 unit, 5 mL, Route: INJ, Drug Form: SOLN, Dosing Weight 127.182, kg, PRN, PRN Other -See Comment, Start date: 01/31/17 17:16:00 CDT, Duration: 30 day, Stop date: 03/02/17 17:15:00 CDTNotes: (Same as: Heparin Lock Flush) No Longer Active 01/31/2017 [facility] Albuterol 0.833 MG/ML / Ipratropium [place] 0.167 MG/ML Inhalant Solution [DuoNeb] 3 mL, Route: NEB, Drug Form: SOLN, Dosing Weight 127.182, kg, ONCE, NOW, Start date: 01/31/17 10:35:00 CDT, Stop date: 01/31/17 10:35:00 CDTNotes: (Same as: Duoneb) Inactive 01/31/2017 [facility] Allopurinol 300 mg, 1 tab, Route: PO, Drug form: TAB, Daily, Dosing Weight 123, kg, Start date: 01/31/17 9:00:00 CDT, Duration: 30 day, Stop date: 03/01/17 9:00:00 CDTNotes: (Same as: Zyloprim) No Longer Active 01/31/2017 [facility] multivitamin 2 tab, Route: PO, Drug Form: TAB, Dosing Weight 123, kg, Daily, Start date: 01/31/17 9:00:00 CDT, Duration: 30 day, Stop date: 03/01/17 9:00:00 CDTNotes: (Same as:Thera) WASTE: F/P - Black; E - Municipal Trash Bin Take with food. No Longer Active 01/31/2017 [facility] Vitamin D3 10,000 IntlUnit, 10 tab, Route: PO, Drug form: TAB, Daily, Dosing Weight 123, kg, Start date: 01/31/17 9:00:00 CDT, Duration: 30 day, Stop date: 03/01/17 9:00:00 CDTNotes: Same as : Vitamin D3 No Longer Active 01/31/2017 [facility] CHROMIUM PICOLINATE 2,000 mg, Route: PO, Daily, Dosing Weight 123, kg, Start date: 01/31/17 9:00:00 CDT, Duration: 30 day, Stop date: 03/01/17 9:00:00 CDT No Longer Active 01/31/2017 [facility] Triiodothyronine 25 microgram, 1 tab, Route: PO, Drug form: TAB, Daily, Dosing Weight 123, kg, Start date: 01/31/17 9:00:00 CDT, Duration: 30 day, Stop date: 03/01/17 9:00:00 CDTNotes: (Same as: Cytomel) No Longer Active 01/31/2017 [facility] Synthroid 175 microgram, 1 tab, Route: PO, Drug form: TAB, Daily, Dosing Weight 123, kg, Start date: 01/31/17 9:00:00 CDT, Duration: 30 day, Stop date: 03/01/17 9:00:00 CDTNotes: Take 1 hour before or 2 hours after meal; Enteral feeds may interefere with the absorption of this medication. (Same as: Levothroid, Synthroid) No Longer Active 01/31/2017 [facility] Isosorbide 60 mg, 1 tab, Route: PO, Drug form: ERTAB, QAM, Dosing Weight 123, kg, Start date: 01/31/17 9:00:00 CDT, Duration: 30 day, Stop date: 03/01/17 9:00:00 CDTNotes: (Same as:Imdur) "Do Not Crush" Take on empty stomach/ full glass of water. Do not crush No Longer Active 01/31/2017 [facility] Levemir FlexPen 62 unit, 0.62 mL, Route: SUB-Q, Drug form: INJ, Bedtime, Start date: 01/30/17 21:00:00 CDT, Duration: 30 day, Stop date: 02/28/17 21:00:00 CDTNotes: Same as Levemir Do not hold insulin without contac ting prescriber WASTE: F/P - Black; E - Municipal Trash Bin "single patient use only" No Longer Active 01/31/2017 [facility] Vancomycin 2,000 mg, Route: IVPB, Q12H, Dosing Weight 123, kg, Time Critical Medication, Start date: 01/30/17 21:00:00 CDT, Duration: 1 doses or times, Stop date: 01/30/17 21:00:00 CDT, ABX Indication: Surgical Pr ophylaxisNotes: TIME CRITICAL MEDICATION (Same As: Vancocin) Infusion rate 2001 mg: infuse over 2.5 hours MEDICATION WASTE Product Size: 1000 mg Product Wasted: ___ mg Inactive 01/31/2017 [facility] Temazepam 15 mg, 1 cap, Route: PO, Drug form: CAP, Bedtime, Dosing Weight 127.182, kg, Start date: 01/30/17 21:00:00 CDT, Duration: 30 day, Stop date: 02/28/17 21:00:00 CDTNotes: (Same As: Restoril) No Longer Active 01/31/2017 [facility] Insulin Glargine 100 UNT/ML Injectable Solution [Lantus] 62 unit, Route: SUB-Q, Drug form: SOLN, Bedtime, Dosing Weight 123, kg, Start date: 01/30/17 21:00:00 CDT, Duration: 30 day, Stop date: 02/28/17 21:00:00 CDT Inactive 01/31/2017 [facility] Trazodone Hydrochloride 100 MG Oral Tablet 100 mg, 2 tab, Route: PO, Drug form: TAB, Bedtime, Dosing Weight 123, kg, Start date: 01/30/17 21:00:00 CDT, Duration: 30 day, Stop date: 02/28/17 21:00:00 CDTNotes: (Same As: Desyrel) No Longer Active 01/31/2017 [facility] tizanidine 2 mg, 0.5 tab, Route: PO, Drug form: TAB, Bedtime, Dosing Weight 123, kg, Start date: 01/30/17 21:00:00 CDT, Duration: 30 day, Stop date: 02/28/17 21:00:00 CDTNotes: (Same As: Zanaflex) No Longer Active 01/31/2017 [facility] Isosorbide 30 mg, 1 tab, Route: PO, Drug form: ERTAB, QPM, Dosing Weight 123, kg, Start date: 01/30/17 17:00:00 CDT, Duration: 30 day, Stop date: 02/28/17 17:00:00 CDTNotes: (Same as:Imdur) "Do Not Crush" Take on empty stomach/ full glass of water. Do not crush No Longer Active 01/30/2017 [facility] Benadryl 25 mg, 1 cap, Route: PO, Drug form: CAP, TID, Dosing Weight 127.182, kg, PRN Itching, Start date: 01/30/17 15:58:00 CDT, Duration: 30 day, Stop date: 03/01/17 15:57:00 CDTNotes: (Same as: Benadryl) No Longer Active 01/30/2017 [facility] gabapentin 900 mg, 3 cap, Route: PO, Drug form: CAP, TID, Dosing Weight 123, kg, Start date: 01/30/17 13:00:00 CDT, Duration: 30 day, Stop date: 03/01/17 9:00:00 CDTNotes: (Same as: Neurontin) No Longer Active 01/30/2017 [facility] Insulin, Aspart, Human 3 unit, 0.03 mL, [...] days from Date No Longer Active 01/30/2017 [facility] Glucagon 1 mg, Route: IM, Drug form: PDR/INJ, PRN, Dosing Weight 127.182, kg, PRN Blood Glucose Results, Start date: 01/30/17 12:31:00 CDT, Duration: 30 day, Stop date: 03/01/17 12:30:00 CDT No Longer Active 01/30/2017 [facility] Dextrose 50% Syringe 12.5 gm, 25 mL, Route: IVP, Drug Form: INJ, Dosing Weight 127.182, kg, PRN, PRN Blood Glucose Results, Start date: 01/30/17 12:31:00 CDT, Duration: 30 day, Stop date: 03/01/17 12:30:00 CDT No Longer Active 01/30/2017 [facility] Ondansetron 4 mg, 2 mL, Route: IVP, Drug form: INJ, Q6H, Dosing Weight 127.182, kg, PRN Nausea & Vomiting, Start date: 01/30/17 12:28:00 CDT, Duration: 30 day, Stop date: 03/01/17 12:27:00 CDTNotes: (Same as: Diana) MEDICATION WASTE Product Size: 4 mg Product Wasted: ___ mg Inactive 01/30/2017 [facility] Morphine 2 mg, 1 mL, Route: IVP, Drug form: INJ, Q4H, Dosing Weight 127.182, kg, PRN Pain Score 7-10, Start date: 01/30/17 12:28:00 CDT, Duration: 30 day, Stop date: 03/01/17 12:27:00 CDTNotes: (Same as:MORPhine Sulfate) No Longer Active 01/30/2017 [facility] Docusate 100 mg, 1 cap, Route: PO, Drug form: CAP, BID, Dosing Weight 127.182, kg, PRN Constipation, Start date: 01/30/17 12:28:00 CDT, Duration: 30 day, Stop date: 03/01/17 12:27:00 CDTNotes: (Same as: Colace) (Do Not Crush) No Longer Active 01/30/2017 [facility] Hydralazine 20 mg, 1 mL, Route: IVP, Drug form: INJ, Q4H, Dosing Weight 127.182, kg, PRN Elevated BP, Start date: 01/30/17 12:28:00 CDT, Duration: 30 day, Stop date: 03/01/17 12:27:00 CDT, For SBP greater than 180N otes: (Same as: Apresoline) Push over 5 minutes No Longer Active 01/30/2017 [facility] Melatonin 3 mg, 1 tab, Route: PO, Drug form: TAB, Bedtime, Dosing Weight 127.182, kg, PRN Sleep, Start date: 01/30/17 12:28:00 CDT, Duration: 30 day, Stop date: 03/01/17 12:27:00 CDTNotes: (Same as: Melatonin) No Longer Active 01/30/2017 [facility] Trazodone 50 mg, 1 tab, Route: PO, Drug form: TAB, Bedtime, Dosing Weight 127.182, kg, PRN Insomnia, Start date: 01/30/17 12:28:00 CDT, Duration: 30 day, Stop date: 03/01/17 12:27:00 CDTNotes: (Same As: Desyrel) No Longer Active 01/30/2017 [facility] Acetaminophen 650 mg, 2 tab, Route: PO, Drug form: TAB, Q4H, Dosing Weight 127.182, kg, PRN Pain 1-3/Temp > 100.4 F, Start date: 01/30/17 12:28:00 CDT, Duration: 30 day, Stop date: 03/01/17 12:27:00 CDTNotes: Do not exceed 4 gm/day. (Same as: Tylenol) No Longer Active 01/30/2017 [facility] atropine-diphenoxylate 0.025 mg-2.5 mg oral tablet 2 tab, Route: PO, Drug Form: TAB, PRN, PRN Diarrhea, Start date: 01/30/17 12:21:00 CDT, Duration: 30 day, Stop date: 03/01/17 12:20:00 CDTNotes: (Same As: Lomotil) MAX Adult dose=8 tabs/day No Longer Active 01/30/2017 [facility] Ondansetron 4 mg, 2 mL, Route: IVP, Drug form: INJ, ONCE, Dosing Weight 123, kg, Start date: 01/30/17 10:53:00 CDT, Stop date: 01/30/17 10:53:00 CDT, ..Notes: (Same as: Diana) MEDICATION WASTE Product Size: 4 mg Product Wasted: ___ mg Inactive 01/30/2017 [facility] Buspirone 7.5 mg, 0.5 tab, Route: PO, Drug form: TAB, ONCE, Dosing Weight 123, kg, Start date: 01/30/17 10:53:00 CDT, Stop date: 01/30/17 10:53:00 CDT, ..Notes: (Same As: BuSpar) Inactive 01/30/2017 [facility] Nitroglycerin 0.4 MG Sublingual Tablet [Nitrostat] 0.4 mg, 1 tab, Route: SL, Drug form: TAB, Q5Min, Dosing Weight 123, kg, PRN Chest Pain, Start date: 01/30/17 10:52:00 CDT, Duration: 3 doses or times, Stop date: Limited # of timesNotes: (Same as:Nitroquick, Nitrostat) "Do Not Crush" Sublingual tablet No Longer Active 01/30/2017 [facility] Atropine Sulfate 0.025 MG / Diphenoxylate Hydrochloride 2.5 MG Oral Tablet [Lomotil] 1 tab, Route: PO, Drug Form: TAB, Dosing Weight 123, kg, PRN, PRN Diarrhea, Start date: 01/30/17 10:49:00 CDT, Duration: 30 day, Stop date: 03/01/17 10:48:00 CDTNotes: (Same As: Lomotil) MAX Adult dose=8 tabs/day No Longer Active 01/30/2017 [facility] 1/2NS + KCL 20mEq/L 1000ml (Premix) 1,000 mL 1,000 mL, Rate: 75 ml/hr, Infuse over: 13.3 hr, Route: IV, Dosing Weight 123 kg, Total Volume: 1,000, Start date: 01/30/17 10:46:00 CDT, Duration: 30 day, Stop date: 03/01/17 10:45:00 CDTNotes: PREMIX IV - Do Not Alter WASTE: F/P - Sink; E - Municipal Trash Bin No Longer Active 01/30/2017 [facility] Zofran 4 mg, 1 tab, Route: PO, Drug form: TAB, Q8H, Dosing Weight 123, kg, PRN Nausea, Start date: 01/30/17 10:46:00 CDT, Duration: 30 day, Stop date: 03/01/17 10:45:00 CDTNotes: (Same as: Zofran) No Longer Active 01/30/2017 [facility] glycopyrrolate (ANES) Route: IV, Drug form: INJ, ONCE, Stop date: 01/30/17 10:19:00 CDT Inactive 01/30/2017 [facility] neostigmine (ANES) Route: IV, Drug form: INJ, ONCE, Stop date: 01/30/17 10:14:00 CDT Inactive 01/30/2017 [facility] ondansetron (ANES) Route: IV, Drug form: INJ, ONCE, Stop date: 01/30/17 10:09:00 CDT Inactive 01/30/2017 [facility] rocuronium (ANES) Route: IV, Drug form: INJ, ONCE, Stop date: 01/30/17 8:39:00 CDT Inactive 01/30/2017 [facility] propofol (ANES) Route: IV, Drug form: INJ, ONCE, Stop date: 01/30/17 8:39:00 CDT Inactive 01/30/2017 [facility] dexamethasone (ANES) Route: IV, Drug form: INJ, ONCE, Stop date: 01/30/17 8:39:00 CDT Inactive 01/30/2017 [facility] midazolam (ANES) Route: IV, Drug form: SOLN, ONCE, Stop date: 01/30/17 8:39:00 CDT Inactive 01/30/2017 [facility] fentaNYL (ANES) Route: IV, Drug form: INJ, ONCE, Stop date: 01/30/17 8:39:00 CDT Inactive 01/30/2017 [facility] ePHEDrine (ANES) Route: IV, Drug form: INJ, ONCE, Stop date: 01/30/17 8:34:00 CDT Inactive 01/30/2017 [facility] Ondansetron 4 mg, 2 mL, Route: IVP, Drug form: INJ, ONCE, Dosing Weight 123, kg, PRN Nausea & Vomiting, Start date: 01/30/17 8:08:00 CDTNotes: (Same as: Zofran) MEDICATION WASTE Product Size: 4 mg Pro duct Wasted: ___ mg Inactive 01/30/2017 [facility] Diphenhydramine 12.5 mg, 0.25 mL, Route: IVP, Drug form: INJ, Q6H, Dosing Weight 123, kg, PRN Itching, Start date: 01/30/17 8:08:00 CDT, Duration: 30 day, Stop date: 03/01/17 8:07:00 CDTNotes: (Same as: Benadryl) Inactive 01/30/2017 [facility] Flumazenil 0.2 mg, 2 mL, Route: IVP, Drug form: INJ, PRN, Dosing Weight 123, kg, PRN Benzodiazepine Reversal, Initial dose, Start date: 01/30/17 8:08:00 CDT, Duration: 30 day, Stop date: 03/01/17 8:07:00 CDTNotes: (Same as: Romazicon) Inactive 01/30/2017 [facility] Naloxone 0.4 mg, 1 mL, Route: IVP, Drug form: INJ, Q2MIN, Dosing Weight 123, kg, PRN Narcotic Reversal, Start date: 01/30/17 8:08:00 CDT, Duration: 8 doses or times, Stop date: Limited # of timesNotes: Same as Narcan Inactive 01/30/2017 [facility] Fentanyl 50 microgram, 1 mL, Route: IVP, Drug form: INJ, Q5Min, Dosing Weight 123, kg, PRN Pain Score 7-10, Priority: Routine, Start date: 01/30/17 8:08:00 CDT, Duration: 2 doses or times, Stop date: Limited # of timesNotes: (Same as: Sublimaze) Preservative free. Inactive 01/30/2017 [facility] Labetalol 10 mg, 2 mL, Route: IVP, Drug form: INJ, Q5Min, Dosing Weight 123, kg, PRN Elevated BP, Start date: 01/30/17 8:08:00 CDT, Duration: 5 doses or times, Stop date: Limited # of timesNotes: (Same as: Normod yne, Trandate) Push over 2 minutes Give bolus over 2-3 minutes. Inactive 01/30/2017 [facility] Hydralazine 10 mg, 0.5 mL, Route: IVP, Drug form: INJ, Q20Min, Dosing Weight 123, kg, PRN Elevated BP, Start date: 01/30/17 8:08:00 CDT, Duration: 2 doses or times, Stop date: Limited # of timesNotes: (Same as: Apresoline) Push over 5 minutes Inactive 01/30/2017 [facility] vancomycin (ANES) (ANES) Route: IV, Drug form: INJ, Start date: 01/30/17 7:51:00 CDT, Stop date: 01/30/17 8:51:00 CDT Inactive 01/30/2017 [facility] Isolyte S (PH 7.4) 1000 mL (ANES) Route: IV, Total Volume: 1,000, Start date: 01/30/17 7:42:00 CDT, Stop date: 01/30/17 8:42:00 CDT Inactive 01/30/2017 [facility] Temazepam 30 mg, PO, Bedtime, 0 Refill(s) No Longer Active 01/27/2017 [facility] Vitamin D3 10,000 IntlUnit, PO, Daily Active 01/27/2017 [facility] Humalog SUB-Q Active 01/27/2017 [facility] Insulin Glargine 100 UNT/ML Injectable Solution [Lantus] 62 unit, SUB-Q, Bedtime Active 01/27/2017 [facility] isosorbide mononitrate 30 mg oral tablet, extended release 30 mg=1 tab, PO, QPM Active 01/27/2017 [facility] isosorbide mononitrate 60 mg oral tablet, extended release 60 mg=1 tab, PO, QAM Active 01/27/2017 [facility] metoprolol extended release PO, BID Active 01/27/2017 [facility] heparin flush 500 unit, 5 mL, Route: IVP, Drug form: SOLN, ONCALL, Start date: 12/30/16 12:00:00 CDT, Duration: 1 day, Stop date: 12/31/16 11:59:00 CDTNotes: (Same as: Heparin Lock Flush) Inactive 12/30/2016 [facility] sodium chloride 20 mL, Route: IVP, Start date: 12/30/16 12:00:00 CDT, Duration: 1 day, Stop date: 12/31/16 11:59:00 CDTNotes: preservative free. Inactive 12/30/2016 [facility] Hydromorphone 0.5 mg, Route: IVP, Q5Min, Dosing Weight 123.182, kg, PRN Pain Score 7-10, Start date: 12/30/16 8:54:00 CDT, Duration: 4 doses or times, Stop date: Limited # of times Inactive 12/30/2016 [facility] Oxycodone 10 mg, Route: PO, Drug form: TAB, Q4H, Dosing Weight 123.182, kg, PRN Pain Score 7-10, Start date: 12/30/16 8:54:00 CDT, Duration: 30 day, Stop date: 01/29/17 8:53:00 CDT Inactive 12/30/2016 [facility] Fentanyl 50 microgram, Route: IVP, Q5Min, Dosing Weight 123.182, kg, PRN Pain Score 7-10, Priority: Routine, Start date: 12/30/16 8:54:00 CDT, Duration: 2 doses or times, Stop date: Limited # of times Inactive 12/30/2016 [facility] Naloxone 0.4 mg, Route: IVP, Q2MIN, Dosing Weight 123.182, kg, PRN Narcotic Reversal, Start date: 12/30/16 8:54:00 CDT, Duration: 8 doses or times, Stop date: Limited # of times Inactive 12/30/2016 [facility] Flumazenil 0.2 mg, Route: IVP, PRN, Dosing Weight 123.182, kg, PRN Benzodiazepine Reversal, Initial dose, Start date: 12/30/16 8:54:00 CDT, Duration: 30 day, Stop date: 01/29/17 8:53:00 CDT Inactive 12/30/2016 [facility] Calcium Chloride 0.0014 MEQ/ML / Potassium Chloride 0.004 MEQ/ML / Sodium Chloride 0.103 MEQ/ML / Sodium Lactate 0.028 MEQ/ML Injectable Solution 1,000 mL, Rate: 125 ml/hr, Infuse over: 8 hr, Route: IV, Dosing Weight 123.182 kg, Total Volume: 1,000, Start date: 12/30/16 8:54:00 CDT, Duration: 30 day, Stop date: 01/29/17 8:53:00 CDT Inactive 12/30/2016 [facility] Morphine 2 mg, Route: IVP, Q5Min, Dosing Weight 123.182, kg, PRN Pain Score 4-6, Start date: 12/30/16 8:54:00 CDT, Duration: 5 doses or times, Stop date: Limited # of times Inactive 12/30/2016 [facility] Meperidine 12.5 mg, Route: IVP, Q30Min, Dosing Weight 123.182, kg, PRN Other -See Comment, For shivering, Start date: 12/30/16 8:54:00 CDT, Duration: 2 doses or times, Stop date: Limited # of times Inactive 12/30/2016 [facility] Ondansetron 4 mg, Route: IVP, ONCE, Dosing Weight 123.182, kg, PRN Nausea & Vomiting, Start date: 12/30/16 8:54:00 CDT Inactive 12/30/2016 [facility] Promethazine 6.25 mg, Route: IVPB, ONCE, Dosing Weight 123.182, kg, PRN Nausea & Vomiting, Start date: 12/30/16 8:54:00 CDT Inactive 12/30/2016 [facility] Diphenhydramine 12.5 mg, Route: IVP, Drug form: INJ, Q6H, Dosing Weight 123.182, kg, PRN Itching, Start date: 12/30/16 8:54:00 CDT, Duration: 30 day, Stop date: 01/29/17 8:53:00 CDT Inactive 12/30/2016 [facility] fentaNYL (ANES) Route: IV, Drug form: INJ, ONCE, Stop date: 12/30/16 8:43:00 CDT Inactive 12/30/2016 [facility] midazolam (ANES) Route: IV, Drug form: SOLN, ONCE, Stop date: 12/30/16 8:38:00 CDT Inactive 12/30/2016 [facility] Morphine Sulfate 1 MG/ML Injectable Solution [Duramorph] 1 mg, 1 mL, Route: INTRATHECAL, Drug form: INJ, ONCE, Dosing Weight 123.182, kg, Priority: STAT, Start date: 12/30/16 8:07:00 CDT, Stop date: 12/30/16 8:07:00 CDTNotes: (Same as:Duramorph, Astramorph-PF) Preservative free. Inactive 12/30/2016 [facility] LR 1000 mL INJ (ANES) Route: IV, Total Volume: 1,000, Start date: 12/30/16 7:58:00 CDT, Stop date: 12/30/16 8:58:00 CDT Inactive 12/30/2016 [facility] Calcium Chloride 0.0014 MEQ/ML / Potassium Chloride 0.004 MEQ/ML / Sodium Chloride 0.103 MEQ/ML / Sodium Lactate 0.028 MEQ/ML Injectable Solution 1,000 mL, Rate: 25 ml/hr, Infuse over: 40 hr, Route: IV, Dosing Weight 123.182 kg, Total Volume: 1,000, Start date: 12/30/16 6:08:00 CDT, Duration: 1 day, Stop date: 12/31/16 6:07:00 CDT Inactive 12/30/2016 [facility] Calcium/Magnesium/Zinc/D3 Calcium/Magnesium/Zinc/D3, 1 tab, PO, BID, Refill(s) 0 On Hold 12/26/2016 [facility] multivitamin 2 tabs, PO, Daily, 0 Refill(s) On Hold 12/26/2016 [facility] Vitamin D3 5000 intl units oral capsule 5,000 IntlUnit=1 cap, PO, BID, # 30 cap, 1 Refill(s) Active 12/26/2016 [facility] CHROMIUM PICOLINATE 1,000 mg, PO, Daily, 0 Refill(s) Active 12/26/2016 [facility] biotin 1000 mcg oral tablet 1,000 microgram=1 tab, PO, Daily, # 30 tab, 0 Refill(s) Active 12/26/2016 [facility] tapentadol 50 MG Oral Tablet [Nucynta] 50 mg=1 tab, PO, TID, PRN for pain, 0 Refill(s) On Hold 12/26/2016 [facility] allopurinol 300 mg oral tablet 300 mg=1 tab, PO, Daily, # 30 tab, 0 Refill(s) Active 12/26/2016 [facility] Vitamin D3 50,000 intl units oral capsule 50,000 IntlUnit=1 cap, PO, qWeek, # 12 cap, 0 Refill(s) Active 12/26/2016 [facility] liothyronine 25 mcg oral tablet 25 microgram=1 tab, PO, Daily, # 30 tab, 0 Refill(s) On Hold 12/26/2016 [facility] amLODIPine 5 mg oral tablet 2.5 mg=0.5 tab, PO, Daily, # 30 tab, 0 Refill(s) Active 12/26/2016 [facility] spironolactone 50 mg oral tablet 50 mg=1 tab, PO, Q-M-W-F, # 30 tab, 1 Refill(s) On Hold 12/26/2016 [facility] Metolazone 2.5 MG Oral Tablet 2.5 mg=1 tab, PO, Q-M-W-F, # 30 tab, 0 Refill(s) On Hold 12/26/2016 [facility] isosorbide mononitrate 30 mg oral tablet, extended release 30 mg=1 tab, PO, QPM, # 30 tab, 0 Refill(s) On Hold 12/26/2016 [facility] Trazodone Hydrochloride 100 MG Oral Tablet 100 mg=1 tab, PO, Bedtime, # 30 tab, 0 Refill(s) On Hold 12/26/2016 [facility] Allergies, Adverse Reactions, Alerts Substance Category Reaction Severity Reaction type Status Date Reported Comments Source adhesive tape Assertion Allergy to substance Active [facility] nutrasweet Assertion Propensity to adverse reactions to substance Active [facility] aspertame Assertion Drug allergy Active [facility] penicillins<sup>1, 2</sup> Assertion Drug allergy Active Patient tolerated cefepime. Unspecified agent. Patient endorsed diffuse itching for "penicillins." [facility] iodine topical Assertion Drug allergy Active [facility] tetracyclines<sup>3</sup> Assertion Drug allergy Active Diffuse itching per patient. [facility] erythromycin<sup>4</sup> Assertion Drug allergy Active Itching and rash per patient. [facility] amoxicillin<sup>5, 6</sup> Assertion Drug allergy Active Patient tolerated cefepime. Diffuse itching per patient. [facility] amitriptyline<sup>7</sup> Assertion Propensity to adverse reactions to drug Active Muscle tremors per patient. [facility] baclofen<sup>8</sup> Assertion Propensity to adverse reactions to drug Active Muscle tremors and jerking per patient. [facility] aspirin<sup>9</sup> Assertion Drug allergy Active Patient endorses "wheezing and diaphramatic spasms, throat closing up as well as gastritis." [facility] tetanus toxoid<sup>10</sup> Assertion Propensity to adverse reactions to drug Active Rash and swelling at injection site per patient. [facility] diphtheria-tetanus toxoids<sup>11</sup> Assertion Propensity to adverse reactions to drug Active Rash and swelling at injection site per patient. [facility] Keflex<sup>12, 13</sup> Assertion Drug allergy Active Patient tolerated cefepime. Diffuse itching with vomiting per patient. [facility] Robaxin<sup>14</sup> Assertion Propensity to adverse reactions to drug Active Unknown reaction per patient. [facility] Zocor<sup>15</sup> Assertion Propensity to adverse reactions to drug Active Muscle weakness and pain, as well as wheezing per patient. [facility] [facility] Lopid<sup>16</sup> Assertion Propensity to adverse reactions to drug Active Muscle pain per patient. [facility] Percocet<sup>17</sup> Assertion Propensity to adverse reactions to drug Active Vomiting per patient. [facility] Talwin<sup>18</sup> Assertion Drug allergy Active Itching and rash per patient. [facility] Biaxin<sup>19</sup> Assertion Drug allergy Active Itching and rash per patient. [facility] Celestone Assertion Drug allergy Active [facility] Ultram<sup>20</sup> Assertion Drug allergy Active Rash, itching, headaches, and irregular heartbeats per patient. [facility] Augmentin<sup>21, 22</sup> Assertion Drug allergy Active Patient tolerated cefepime. Diffuse itching per patient. [facility] Betadine<sup>23</sup> Assertion Drug allergy Active Rash and itching per patient. [facility] Lipitor<sup>24</sup> Assertion Propensity to adverse reactions to drug Active Muscle pain, weakness and dark urine per patient. [facility] Prinivil<sup>25</sup> Assertion Propensity to adverse reactions to drug Active [facility]. [facility] Pro-Banthine<sup>26</sup> Assertion Propensity to adverse reactions to drug Active Unknown reaction per [facility]. [facility] Reglan<sup>27</sup> Assertion Propensity to adverse reactions to drug Active Muscle tremors per patient. [facility] [place]<sup>28</sup> Assertion Drug allergy Active Itching per patient. [facility] Advair Diskus<sup>29</sup> Assertion Propensity to adverse reactions to drug Active Patient endorses "neurologic problems." [facility] Zetia<sup>30</sup> Assertion Propensity to adverse reactions to drug Active Muscle weakness, pain, wheezing per patient. [facility] Other Food Allergy<sup>31</sup> Assertion Drug allergy Active splenda [facility] Lyrica<sup>32</sup> Assertion Propensity to adverse reactions to drug Active Muscle tremors and jerking per patient. [facility] NSAIDs<sup>33</sup> Assertion Drug allergy Active Patient endorses "wheezing and diaphramatic spasms, throat closing up as well as gastritis." [facility] TEGretol<sup>34</sup> Assertion Propensity to adverse reactions to drug Active Unknown reaction per patient. [facility] Advair Diskus Assertion Drug allergy Active [facility] all mycins Assertion Drug allergy Active [facility] amitriptyline Assertion Drug allergy Active [facility] amoxicillin Assertion Drug allergy Active [facility] aspirin Assertion Drug allergy Active [facility] Augmentin Assertion Drug allergy Active [facility] baclofen Assertion Drug allergy Active [facility] Betadine Assertion Propensity to adverse reactions to substance Active [facility] Biaxin Assertion Drug allergy Active [facility] Darvon-N Assertion Drug allergy Active [facility] diphtheria-tetanus toxoids Assertion Drug allergy Active [facility] erythromycin Assertion Drug allergy Active [facility] Keflex Assertion Drug allergy Active [facility] Lipitor Assertion Drug allergy Active [facility] Lopid Assertion Drug allergy Active [facility] Lyrica Assertion Drug allergy Active [facility] [place] Assertion Drug allergy Active [facility] NSAIDs Assertion Drug allergy Active [facility] penicillins Assertion Drug allergy Active [facility] Percocet Assertion Drug allergy Active [facility] Prinivil Assertion Drug allergy Active [facility] Pro-Banthine Assertion Drug allergy Active [facility] Reglan Assertion Drug allergy Active [facility] Robaxin Assertion Drug allergy Active [facility] Talwin Assertion Drug allergy Active [facility] TEGretol Assertion Drug allergy Active [facility] tetanus immune globulin Assertion Drug allergy Active [facility] tetanus toxoid Assertion Drug allergy Active [facility] tetracyclines Assertion Drug allergy Active [facility] Ultram Assertion Drug allergy Active [facility] Zaroxolyn Assertion Drug allergy Active [facility] Zetia Assertion Drug allergy Active [facility] Zocor Assertion Drug allergy Active [facility] Other Food Allergy<sup>1</sup> Assertion Drug allergy Active splenda [facility] Advair Diskus<sup>1</sup> Assertion Propensity to adverse reactions to drug Active Patient endorses "neurologic problems." [facility] amitriptyline<sup>2</sup> Assertion Propensity to adverse reactions to drug Active Muscle tremors per patient. [facility] amoxicillin<sup>3, 4</sup> Assertion Drug allergy Active Patient tolerated cefepime. Diffuse itching per patient. [facility] aspirin<sup>5</sup> Assertion Drug allergy Active Patient endorses "wheezing and diaphramatic spasms, throat closing up as well as gastritis." [facility] Augmentin<sup>6, 7</sup> Assertion Drug allergy Active Patient tolerated cefepime. Diffuse itching per patient. [facility] Betadine<sup>9</sup> Assertion Drug allergy Active Rash and itching per patient. [facility] Biaxin<sup>10</sup> Assertion Drug allergy Active Itching and rash per patient. [facility] erythromycin<sup>12</sup> Assertion Drug allergy Active Itching and rash per patient. [facility] Keflex<sup>13, 14</sup> Assertion Drug allergy Active Patient tolerated cefepime. Diffuse itching with vomiting per patient. [facility] Lipitor<sup>15</sup> Assertion Propensity to adverse reactions to drug Active Muscle pain, weakness and dark urine per patient. [facility] Lyrica<sup>17</sup> Assertion Propensity to adverse reactions to drug Active Muscle tremors and jerking per patient. [facility] [place]<sup>18</sup> Assertion Drug allergy Active Itching per patient. [facility] NSAIDs<sup>19</sup> Assertion Drug allergy Active Patient endorses "wheezing and diaphramatic spasms, throat closing up as well as gastritis." [facility] Other Food Allergy<sup>20</sup> Assertion Drug allergy Active splenda [facility] penicillins<sup>21, 22</sup> Assertion Drug allergy Active Patient tolerated cefepime. Unspecified agent. Patient endorsed diffuse itching for "penicillins." [facility] Percocet<sup>23</sup> Assertion Propensity to adverse reactions to drug Active Vomiting per patient. [facility] Prinivil<sup>24</sup> Assertion Propensity to adverse reactions to drug Active Tachycardia per patient. [facility] Pro-Banthine<sup>25</sup> Assertion Propensity to adverse reactions to drug Active Unknown reaction per patient. [facility] Reglan<sup>26</sup> Assertion Propensity to adverse reactions to drug Active Muscle tremors per patient. [facility] Robaxin<sup>27</sup> Assertion Propensity to adverse reactions to drug Active Unknown reaction per patient. [facility] Talwin<sup>28</sup> Assertion Drug allergy Active Itching and rash per patient. [facility] TEGretol<sup>29</sup> Assertion Propensity to adverse reactions to drug Active Unknown reaction per patient. [facility] tetanus toxoid<sup>30</sup> Assertion Propensity to adverse reactions to drug Active Rash and swelling at injection site per patient. [facility] tetracyclines<sup>31</sup> Assertion Drug allergy Active Diffuse itching per patient. [facility] Ultram<sup>32</sup> Assertion Drug allergy Active Rash, itching, headaches, and irregular heartbeats per patient. [facility] Zetia<sup>33</sup> Assertion Propensity to adverse reactions to drug Active Muscle weakness, pain, wheezing per patient. [facility] Zocor<sup>34</sup> Assertion Propensity to adverse reactions to drug Active Muscle weakness and pain, as well as wheezing per patient. [facility] Immunizations No Data Provided for This Section Results Order Name Results Value Reference Range Date Interpretation Comments Source CHEM PANEL Magnesium Lvl 2.1 1.8 - 2.4 03/03/2017 [facility] CHEM PANEL eGFR 48 03/03/2017 Result Comment: [...] should be multiplied by the estimated BMI. [facility] CHEM PANEL Sodium Lvl 140 135 - 145 03/03/2017 [facility] CHEM PANEL BUN 13 7 - 22 03/03/2017 [facility] CHEM PANEL Creatinine Lvl 1.20 0.50 - 1.40 03/03/2017 [facility] CHEM PANEL Glucose Lvl 86 70 - 99 03/03/2017 [facility] CHEM PANEL AGAP 8.3 10.0 - 20.0 03/03/2017 [facility] CHEM PANEL Chloride Lvl 104 95 - 109 03/03/2017 [facility] CHEM PANEL CO2 32 24 - 32 03/03/2017 [facility] CHEM PANEL Potassium Lvl 4.3 3.5 - 5.1 03/03/2017 [facility] CHEM PANEL Calcium Lvl 8.5 8.5 - 10.5 03/03/2017 [facility] CHEM PANEL Phosphorus 4.2 2.5 - 4.5 03/03/2017 [facility] CHEM PANEL eGFR 53 03/02/2017 Result Comment: [...] should be multiplied by the estimated BMI. [facility] CHEM PANEL AGAP 8.4 10.0 - 20.0 03/02/2017 [facility] CHEM PANEL CO2 33 24 - 32 03/02/2017 [facility] CHEM PANEL Chloride Lvl 103 95 - 109 03/02/2017 [facility] CHEM PANEL Potassium Lvl 4.4 3.5 - 5.1 03/02/2017 [facility] CHEM PANEL Calcium Lvl 8.4 8.5 - 10.5 03/02/2017 [facility] CHEM PANEL Sodium Lvl 140 135 - 145 03/02/2017 [facility] CHEM PANEL Creatinine Lvl 1.10 0.50 - 1.40 03/02/2017 [facility] CHEM PANEL BUN 15 7 - 22 03/02/2017 [facility] CHEM PANEL Glucose Lvl 101 70 - 99 03/02/2017 [facility] CHEM PANEL Magnesium Lvl 2.3 1.8 - 2.4 03/02/2017 [facility] CHEM PANEL Phosphorus 4.2 2.5 - 4.5 03/02/2017 [facility] CHEM PANEL Phosphorus 3.2 2.5 - 4.5 03/01/2017 [facility] CHEM PANEL Creatinine Lvl 1.00 0.50 - 1.40 03/01/2017 [facility] CHEM PANEL Sodium Lvl 139 135 - 145 03/01/2017 [facility] CHEM PANEL BUN 17 7 - 22 03/01/2017 [facility] CHEM PANEL Chloride Lvl 102 95 - 109 03/01/2017 [facility] CHEM PANEL AGAP 8.3 10.0 - 20.0 03/01/2017 [facility] CHEM PANEL Calcium Lvl 7.6 8.5 - 10.5 03/01/2017 [facility] CHEM PANEL CO2 33 24 - 32 03/01/2017 [facility] CHEM PANEL Potassium Lvl 4.3 3.5 - 5.1 03/01/2017 [facility] CHEM PANEL eGFR 59 03/01/2017 Result Comment: [...] should be multiplied by the estimated BMI. [facility] CHEM PANEL Glucose Lvl 149 70 - 99 03/01/2017 [facility] CHEM PANEL Magnesium Lvl 2.2 1.8 - 2.4 03/01/2017 [facility] TOXICOLOGY Vanco Tr TND 1630 02/28/2017 [facility] TOXICOLOGY Vanco Tr 12.5 02/28/2017 [facility] TOXICOLOGY Vanco Tr TND [id number] 02/27/2017 [facility] TOXICOLOGY Vanco Tr 21.6 02/27/2017 [facility] CHEM PANEL Uric Acid 6.4 2.5 - 7.0 02/27/2017 [facility] Platelet 232 133 - 450 02/27/2017 [facility] RDW 16.0 11.5 - 14.5 02/27/2017 [facility] MPV 8.2 7.4 - 10.4 02/27/2017 [facility] WBC 7.0 3.7 - 10.4 02/27/2017 [facility] Hgb 9.2 12.0 - 16.0 02/27/2017 [facility] RBC 2.93 4.20 - 5.40 02/27/2017 [facility] Hct 27.3 36.0 - 48.0 02/27/2017 [facility] MCH 31.2 27.0 - 31.0 02/27/2017 [facility] MCV 92.9 80.0 - 98.0 02/27/2017 [facility] MCHC 33.6 32.0 - 36.0 02/27/2017 [facility] Segs-Bands # 3.7 1.5 - 8.1 02/27/2017 [facility] Lymphocytes # 1.9 1.0 - 5.5 02/27/2017 [facility] Eosinophils # 0.4 0.0 - 0.5 02/27/2017 [facility] Monocytes # 1.0 0.0 - 0.8 02/27/2017 [facility] Monocytes 13.5 2.0 - 12.0 02/27/2017 [facility] Lymphocytes 26.8 20.0 - 40.0 02/27/2017 [facility] HEMATOLOGY Basophils 0.4 0.0 - 1.0 02/27/2017 [facility] HEMATOLOGY Eosinophils 6.0 0.0 - 4.0 02/27/2017 [facility] HEMATOLOGY Segs 53.3 45.0 - 75.0 02/27/2017 [facility] ANEMIA STUDY Vitamin B12 Lvl 700 254 - 1320 02/26/2017 [facility] ANEMIA STUDY Ferritin Lvl 134 5 - 204 02/26/2017 [facility] WBC 8.1 3.7 - 10.4 02/26/2017 [facility] RBC 3.46 4.20 - 5.40 02/26/2017 [facility] RDW 16.3 11.5 - 14.5 02/26/2017 [facility] Hct 32.5 36.0 - 48.0 02/26/2017 [facility] Hgb 10.7 12.0 - 16.0 02/26/2017 [facility] MCH 30.9 27.0 - 31.0 02/26/2017 [facility] MCV 94.0 80.0 - 98.0 02/26/2017 [facility] MCHC 32.9 32.0 - 36.0 02/26/2017 [facility] MPV 8.5 7.4 - 10.4 02/26/2017 [facility] Platelet 222 133 - 450 02/26/2017 [facility] Eosinophils # 0.4 0.0 - 0.5 02/26/2017 [facility] Monocytes # 1.0 0.0 - 0.8 02/26/2017 [facility] Lymphocytes # 1.8 1.0 - 5.5 02/26/2017 [facility] Segs-Bands # 4.9 1.5 - 8.1 02/26/2017 [facility] Eosinophils 5.0 0.0 - 4.0 02/26/2017 [facility] Basophils 0.5 0.0 - 1.0 02/26/2017 [facility] HEMATOLOGY Segs 60.1 45.0 - 75.0 02/26/2017 [facility] Lymphocytes 22.1 20.0 - 40.0 02/26/2017 [facility] Monocytes 12.3 2.0 - 12.0 02/26/2017 [facility] Basophils # 0.0 0.0 - 0.2 02/26/2017 [facility] BLOOD BANK RESULTS Antibody Scrn Negative (7/12/17 5:02 PM) 02/25/2017 [facility] BLOOD BANK RESULTS ABO/Rh A POS 02/25/2017 [facility] CHEM PANEL Alk Phos 79 39 - 136 02/25/2017 [facility] CHEM PANEL Bili Total 0.9 0.2 - 1.3 02/25/2017 [facility] CHEM PANEL AST 14 0 - 37 02/25/2017 [facility] CHEM PANEL Albumin Lvl 2.5 3.5 - 5.0 02/25/2017 [facility] CHEM PANEL Globulin 4.6 2.7 - 4.2 02/25/2017 [facility] CHEM PANEL A/G Ratio 0.5 0.7 - 1.6 02/25/2017 [facility] CHEM PANEL ALT 11 0 - 65 02/25/2017 [facility] CHEM PANEL Total Protein 7.1 6.4 - 8.4 02/25/2017 [facility] CHEM PANEL B/C Ratio 22 6 - 25 02/25/2017 [facility] Platelet 233 133 - 450 02/25/2017 [facility] MPV 8.2 7.4 - 10.4 02/25/2017 [facility] Hgb 10.7 12.0 - 16.0 02/25/2017 [facility] RBC 3.46 4.20 - 5.40 02/25/2017 [facility] RDW 16.2 11.5 - 14.5 02/25/2017 [facility] MCHC 33.0 32.0 - 36.0 02/25/2017 [facility] MCH 30.9 27.0 - 31.0 02/25/2017 [facility] Hct 32.3 36.0 - 48.0 02/25/2017 [facility] MCV 93.4 80.0 - 98.0 02/25/2017 [facility] WBC 12.8 3.7 - 10.4 02/25/2017 [facility] Lymphocytes 18.7 20.0 - 40.0 02/25/2017 [facility] HEMATOLOGY Segs 70.7 45.0 - 75.0 02/25/2017 [facility] Lymphocytes # 2.4 1.0 - 5.5 02/25/2017 [facility] HEMATOLOGY Eosinophils 2.2 0.0 - 4.0 02/25/2017 [facility] Basophils 0.3 0.0 - 1.0 02/25/2017 [facility] Segs-Bands # 9.1 1.5 - 8.1 02/25/2017 [facility] HEMATOLOGY Monocytes 8.1 2.0 - 12.0 02/25/2017 [facility] HEMATOLOGY Monocytes # 1.0 0.0 - 0.8 02/25/2017 [facility] HEMATOLOGY Eosinophils # 0.3 0.0 - 0.5 02/25/2017 [facility] URINE AND STOOL UA Leuk Est Negative (02/24/17 9:24 PM) Negative 02/25/2017 [facility] URINE AND STOOL UA Sq Epi Occasional /LPF Few /LPF 02/25/2017 [facility] URINE AND STOOL UA Nitrite Negative (02/24/17 9:24 PM) Negative 02/25/2017 [facility] URINE AND STOOL UA Mucus Few /LPF None Seen /LPF 02/25/2017 [facility] URINE AND STOOL UA Ketones Negative mg/dL Negative mg/dL 02/25/2017 [facility] URINE AND STOOL UA Bili Negative *NA* (02/24/17 9:24 PM) Negative 02/25/2017 [facility] URINE AND STOOL UA WBC 1 0 - 5 02/25/2017 [facility] URINE AND STOOL UA Blood Negative (02/24/17 9:24 PM) Negative 02/25/2017 [facility] URINE AND STOOL UA Color Ltyellow 02/25/2017 [facility] URINE AND STOOL UA Urobilinogen <=1.0 0.1 - 1.0 02/25/2017 [facility] URINE AND STOOL UA Hyal Cast 4 0 - 2 02/25/2017 [facility] URINE AND STOOL UA Bacteria Moderate /HPF None Seen /HPF 02/25/2017 [facility] URINE AND STOOL UA RBC <1 0 - 2 02/25/2017 [facility] URINE AND STOOL UA Glucose Negative mg/dL Negative mg/dL 02/25/2017 [facility] URINE AND STOOL UA Spec Grav 1.006 <=1.030 02/25/2017 [facility] URINE AND STOOL UA pH 6.0 5.0 - 8.0 02/25/2017 [facility] URINE AND STOOL UA Protein Negative mg/dL Negative mg/dL 02/25/2017 [facility] URINE AND STOOL UA Turbidity Clear (02/24/17 9:24 PM) Clear 02/25/2017 [facility] URINE CHEM U Prot/Creat 0.1 02/25/2017 [facility] URINE CHEM U Protein 8.2 02/25/2017 [facility] URINE CHEM U Creatinine 55.60 02/25/2017 [facility] URINE CHEM U Chloride 40 02/25/2017 [facility] URINE CHEM U Osmolality 239 300 - 800 02/25/2017 [facility] URINE CHEM U Eos None Seen (02/24/17 9:24 PM) None Seen 02/25/2017 [facility] URINE CHEM U Creatinine 55.60 02/25/2017 [facility] URINE CHEM U Sodium 44 02/25/2017 [facility] HEMATOLOGY Basophils # 0.0 0.0 - 0.2 02/24/2017 [facility] CHEM PANEL Lactic Acid Lvl 1.0 0.5 - 2.2 02/24/2017 [facility] CHEM PANEL A/G Ratio 0.5 0.7 - 1.6 02/24/2017 [facility] CHEM PANEL Globulin 5.0 2.7 - 4.2 02/24/2017 [facility] CHEM PANEL B/C Ratio 20 6 - 25 02/24/2017 [facility] CHEM PANEL Albumin Lvl 2.7 3.5 - 5.0 02/24/2017 [facility] CHEM PANEL Total Protein 7.7 6.4 - 8.4 02/24/2017 [facility] CHEM PANEL AST 12 0 - 37 02/24/2017 [facility] CHEM PANEL ALT 12 0 - 65 02/24/2017 [facility] CHEM PANEL Bili Total 1.5 0.2 - 1.3 02/24/2017 [facility] CHEM PANEL Alk Phos 78 39 - 136 02/24/2017 [facility] BLOOD BANK RESULTS Antibody Scrn Negative (01/27/17 2:59 PM) 01/27/2017 [facility] BLOOD BANK RESULTS ABO/Rh A POS 01/27/2017 [facility] ELECTROLYTES AGAP 11.6 10.0 - 20.0 01/27/2017 [facility] ELECTROLYTES eGFR 67 01/27/2017 Result Comment: The [...] should be multiplied by the estimated BMI. [facility] ELECTROLYTES Calcium Lvl 10.2 8.5 - 10.5 01/27/2017 [facility] ELECTROLYTES Potassium Lvl 3.6 3.5 - 5.1 01/27/2017 [facility] ELECTROLYTES Sodium Lvl 140 135 - 145 01/27/2017 [facility] ELECTROLYTES Glucose Lvl 108 70 - 99 01/27/2017 [facility] ELECTROLYTES CO2 28 24 - 32 01/27/2017 [facility] ELECTROLYTES Chloride Lvl 104 95 - 109 01/27/2017 [facility] ELECTROLYTES BUN 28 7 - 22 01/27/2017 [facility] ELECTROLYTES Creatinine Lvl 0.90 0.50 - 1.40 01/27/2017 [facility] HEMATOLOGY PTT 25.6 22.9 - 35.8 01/27/2017 [facility] INR 0.89 0.85 - 1.17 01/27/2017 [facility] PT 12.2 12.0 - 14.7 01/27/2017 [facility] MCH 30.9 27.0 - 31.0 01/27/2017 [facility] MCHC 33.5 32.0 - 36.0 01/27/2017 [facility] MCV 92.0 80.0 - 98.0 01/27/2017 [facility] RDW 17.1 11.5 - 14.5 01/27/2017 [facility] Hgb 11.7 12.0 - 16.0 01/27/2017 [facility] RBC 3.78 4.20 - 5.40 01/27/2017 [facility] Hct 34.8 36.0 - 48.0 01/27/2017 [facility] MPV 8.4 7.4 - 10.4 01/27/2017 [facility] Platelet 258 133 - 450 01/27/2017 [facility] WBC 7.7 3.7 - 10.4 01/27/2017 [facility] Segs-Bands # 5.3 1.5 - 8.1 01/27/2017 [facility] Eosinophils # 0.1 0.0 - 0.5 01/27/2017 [facility] Monocytes # 0.7 0.0 - 0.8 01/27/2017 [facility] Lymphocytes # 1.6 1.0 - 5.5 01/27/2017 [facility] HEMATOLOGY Basophils # 0.1 0.0 - 0.2 01/27/2017 [facility] HEMATOLOGY Basophils 0.7 0.0 - 1.0 01/27/2017 [facility] HEMATOLOGY Segs 68.1 45.0 - 75.0 01/27/2017 [facility] HEMATOLOGY Eosinophils 1.4 0.0 - 4.0 01/27/2017 [facility] HEMATOLOGY Monocytes 9.4 2.0 - 12.0 01/27/2017 [facility] HEMATOLOGY Lymphocytes 20.4 20.0 - 40.0 01/27/2017 [facility] IMMUNOLOGY HIV Ag/Ab 4th Gen Negative *NA* (01/27/17 2:59 PM) Negative 01/27/2017 [facility] Pathology Reports No Data Provided for This [...] demonstrable acute pulmonary abnormality. SL: 14 02/28/2017 [facility] Spine thoracic wo contrast CT Clinical Indication: [...] throughout the thoracic spine as described. SL: [id number] 02/25/2017 [facility] Consultation Notes No Data Provided for This Section Discharge Summaries No Data Provided for This Section History and Physicals No Data Provided for This Section Vital Signs Vital Sign Value Date Comments Source Systolic (mm Hg) 146 03/03/2017 [facility] Diastolic (mm Hg) 79 03/03/2017 [facility] Heart Rate 60 03/03/2017 [facility] Respitory Rate 18 03/03/2017 [facility] Temperature Oral (F) 98.3 F 03/03/2017 [facility] Respitory Rate 18 03/03/2017 [facility] Systolic (mm Hg) 139 03/03/2017 [facility] Diastolic (mm Hg) 73 03/03/2017 [facility] Heart Rate 56 03/03/2017 [facility] Temperature Oral (F) 98.1 F 03/03/2017 [facility] Systolic (mm Hg) 139 03/03/2017 [facility] Diastolic (mm Hg) 58 03/03/2017 [facility] Heart Rate 62 03/03/2017 [facility] Temperature Oral (F) 98.6 F 03/03/2017 [facility] Respitory Rate 18 03/03/2017 [facility] Weight 118.182 02/25/2017 [facility] BMI Calculated 43.36 02/24/2017 [facility] Weight 118.182 02/24/2017 [facility] Height 165.1 cm 02/24/2017 [facility] Heart Rate 68 01/31/2017 [facility] Respitory Rate 18 01/31/2017 [facility] Systolic (mm Hg) 144 01/31/2017 [facility] Diastolic (mm Hg) 74 01/31/2017 [facility] Temperature Oral (F) 97.6 F 01/31/2017 [facility] Temperature Oral (F) 97.8 F 01/31/2017 [facility] Systolic (mm Hg) 121 01/31/2017 [facility] Diastolic (mm Hg) 71 01/31/2017 [facility] Respitory Rate 18 01/31/2017 [facility] Heart Rate 67 01/31/2017 [facility] Systolic (mm Hg) 134 01/31/2017 [facility] Diastolic (mm Hg) 75 01/31/2017 [facility] Temperature Oral (F) 97.9 F 01/31/2017 [facility] Respitory Rate 18 01/31/2017 [facility] Heart Rate 75 01/31/2017 [facility] BMI Calculated 46.66 01/30/2017 [facility] Height 165.1 cm 01/30/2017 [facility] Weight 127.182 01/30/2017 [facility] Height 165.1 cm 01/27/2017 [facility] Weight 123 01/27/2017 [facility] BMI Calculated 45.12 01/27/2017 [facility] Height 165.1 cm 01/27/2017 [facility] Systolic (mm Hg) 122 12/30/2016 [facility] Diastolic (mm Hg) 58 12/30/2016 [facility] Respitory Rate 12 12/30/2016 [facility] Respitory Rate 12 12/30/2016 [facility] Systolic (mm Hg) 111 12/30/2016 [facility] [facility] Diastolic (mm Hg) 46 12/30/2016 [facility] Respitory Rate 12 12/30/2016 [facility] Systolic (mm Hg) 128 12/30/2016 [facility] Diastolic (mm Hg) 60 12/30/2016 [facility] Heart Rate 53 12/26/2016 [facility] Temperature Oral (F) 98.3 F 12/26/2016 [facility] Height 165.1 cm 12/26/2016 [facility] BMI Calculated 45.19 12/26/2016 [facility] Weight 123.182 12/26/2016 [facility] Encounters Location Location Details Encounter Type Encounter Number Reason For Visit Attending Provider ADM Date DC Date Status Source [facility] [id number] [place] 12/30/2016 12/30/2016 [facility] Observation [id number] Pipo Muse 01/30/2017 02/01/2017 [facility] [id number] Mark Wade 02/24/2017 03/04/2017 [facility] Phone Message [id number] 01/12/2018 01/14/2018 [facility] Procedure Code Date Perfomer Comments Source Appendectomy [id number] [facility] Cardiac catheterization [id number] [facility] Cholecystectomy [id number] [facility] Colonoscopy [id number] [facility] Hemorrhoidectomy 07088196 [facility] Hernia repair [id number] [facility] Laminectomy [id number] [facility] Laparoscopy [id number] [facility] Operation [id number] [facility] Procedure<sup>1</sup> [id number] low back surgery with fusion [facility] Procedure<sup>2</sup> [id number] foot surgeries [facility] Procedure<sup>3</sup> [id number] blader suspension [facility] Repair of rotator cuff of shoulder [id number] [facility] Repair of ventral hernia [id number] [facility] PRIMO - Total abdominal hysterectomy [id number] [facility] Thyroidectomy [id number] [facility] Assessment and Plan Assessment and Plan Date [...] MD Date: 02/26/17 Requestor: Juan Maharaj MD, [facility] physicians Reason: ARF CC: intrathecal pain pump [...] lasix, metolazone and spirinolactone managed by a [facility]. She states her edema is [...] "plateauing" 2. ?CKD-2 @ baseline, followed by [facility] 3. Edema requiring aggressive diuresis [...] trial The procedure was performed at at [facility], done within the past [...] as scheduled or in 2 weeks, 12/30/2016 [facility] Plan of Care No Data Provided for This Section Social History Social History Date Source Social History TypeResponse Substance Abuse Use: None. Alcohol Past, Type Wine. Frequency: 1-2 times per year. Previous treatment: None. Smoking Status Never smoker; Type: Cigarettes; Exposure to Tobacco Smoke None; Cigarette Smoking Last 365 Days No; Reg Smoking Cessation Counseling No entered on: 02/24/17 10/24/2016 [facility] Social History TypeResponse Substance Abuse Use: None. Alcohol Current, Frequency: 1-2 times per year. Smoking Status Never smoker; Exposure to Tobacco Smoke None; Cigarette Smoking Last 365 Days No; Reg Smoking Cessation Counseling No 10/24/2016 [facility] Social History TypeResponse Substance Abuse Use: None. Alcohol Past, Type Wine. Frequency: 1-2 times per year. Previous treatment: None. Smoking Status Never smoker; Type: Cigarettes; Exposure to Tobacco Smoke None; Cigarette Smoking Last 365 Days No; Reg Smoking Cessation Counseling No 10/24/2016 [facility] Family History No Data Provided for This Section Advance Directives No Data Provided for This Section Functional Status No Data Provided for This Section
--- NOTE | 2019-04-23 02:40 | NUR ---
SPO2 92% RA; O2 APPLIED VIA NC AT 3LPM WITH RESULTING SPO2 98%; PT DENIES ANY NEEDS OR CONCERNS AT THIS TIME
[2019-04-23] MEDS ORDERED: CLOPIDOGREL75 MG PO (03:56)
[2019-04-23] MEDS ORDERED: GABAPENTIN400 MG PO (03:56)
[2019-04-23] MEDS ORDERED: ARMOUR THYROID120 MG PO (03:56)
[2019-04-23] MEDS ORDERED: FUROSEMIDE20 MG PO (03:56)
[2019-04-23] MEDS ORDERED: LOSARTAN POTASS25 MG PO (03:56)
[2019-04-23] MEDS ORDERED: CHLORZOXAZONE500 MG PO (03:56)
[2019-04-23] MEDS ORDERED: SUCRALFATE1 GM PO (03:56)
[2019-04-23] MEDS ORDERED: RANEXA500 MG PO (03:56)
[2019-04-23] MEDS ORDERED: TRAZODONE HCL100 MG PO (03:56)
[2019-04-23] MEDS ORDERED: HUMALOG100 UNIT/1 SQ (04:19)
--- NOTE | 2019-04-23 06:14 | NUR ---
DR. RODRIGUEZ DOING ROUNDS. NEW ORDER RECEIVE FOR PRN MORPHINE IV AND TO CONTINUE HOME MEDS
--- NOTE | 2019-04-23 07:15 | NUR ---
Received patient lying in bed with eyes open. Respiration even and unlabored without SOB. call light in reach.
[2019-04-23] MEDS ORDERED: NITROGLYCERIN 0.4 MG SUBL SL PRN (07:30)
[2019-04-23] MEDS ORDERED: NON-FORMULARY MEDICATION (Temazepam 30 MG) PO PRN (07:30)
[2019-04-23] MEDS ORDERED: NON-FORMULARY MEDICATION (Trazodone Hcl 100 MG) PO PRN (07:30)
[2019-04-23] MEDS ORDERED: COLCHICINE 0.6 MG TAB PO PRN (07:30)
[2019-04-23] MEDS ORDERED: DIPHENHYDRAMINE HCL 25 MG CAP PO PRN (07:30)
[2019-04-23] MEDS ORDERED: PROMETHAZINE HCL 25 MG TAB PO PRN (07:30)
[2019-04-23] MEDS ORDERED: DIPHENOXYLATE/ATROPINE TAB PO PRN (07:30)
[2019-04-23 07:31] LABS: CHOL/HDL RATIO 5.7 (3.0-3.6)
[2019-04-23] MEDS: INSULIN LISPRO 100 UNIT/1 ML 3ML VIAL SQ SCH ×4 (08:00→22:00)
[2019-04-23] MEDS ORDERED: NON-FORMULARY MEDICATION (Letrozole 2.5 MG) PO SCH (09:00)
[2019-04-23] MEDS: LETROZOLE 2.5MG PO SCH (09:00)
[2019-04-23] MEDS ORDERED: [UNRECOGNIZED DRUG - OTHER] PO SCH (09:00)
[2019-04-23] MEDS ORDERED: FUROSEMIDE 20 MG TAB PO SCH (09:00)
[2019-04-23] MEDS: MYRBETRIQ 50MG PO SCH (09:00)
[2019-04-23] MEDS ORDERED: NON-FORMULARY MEDICATION (Mirabegron (Myrbetriq) 50 MG) PO SCH (09:00)
[2019-04-23] MEDS ORDERED: CHLORZOXAZONE 500 MG PO SCH (09:00)
[2019-04-23] MEDS: CHLORZOXAZONE 500 MG PO SCH ×2 (09:00→17:00)
[2019-04-23] MEDS ORDERED: THYROID PORK 120 MG PO SCH (09:00)
[2019-04-23] MEDS: SUCRALFATE 1 GM TAB PO SCH ×4 (09:07→21:54)
[2019-04-23] MEDS: FUROSEMIDE INJ 10 MG/ML 4 ML VIAL IV SCH (09:07)
[2019-04-23] MEDS: GABAPENTIN 400 MG CAP PO SCH ×3 (09:08→21:52)
[2019-04-23] MEDS: PANTOPRAZOLE SOD 40 MG TABEC PO SCH ×2 (09:08→16:47)
[2019-04-23] MEDS: RANOLAZINE 500 MG TABSR PO SCH ×2 (09:08→16:48)
[2019-04-23] MEDS: SPIRONOLACTONE 25 MG TAB PO SCH (09:08)
[2019-04-23] MEDS: CLOPIDOGREL BISULFATE 75 MG TAB PO SCH (09:08)
[2019-04-23] MEDS: LOSARTAN POTASSIUM 25 MG TAB PO SCH (09:08)
[2019-04-23] MEDS: ALLOPURINOL 300 MG TAB PO SCH (09:09)
[2019-04-23] MEDS: THYROID 60 MG TAB PO SCH (09:41)
[2019-04-23] MEDS: METOPROLOL TARTRATE 25 MG TAB PO SCH (09:42)
[2019-04-23] MEDS: MORPHINE SULFATE 2 MG/ML SYR 1ML IV PRN ×2 (11:16→19:25)
[2019-04-23] MEDS: ONDANSETRON HCL INJ 2MG/ML 2ML 2 MG/ML VIAL IV PRN ×2 (11:16→19:25)
--- NOTE | 2019-04-23 11:30 | NUR ---
Right upper arm IV leaking. Patient requesting for port a cath to be accessed. New order obtained.
--- NOTE | 2019-04-23 11:54 | NUR ---
Left chest port a cath accessed at this time. 22G 0.75 inch virk needle used to access. Immediate blood return noted. No c/o pain and patient tolerated well
--- NOTE | 2019-04-23 12:52 | History and Physical ---
CHIEF COMPLAINT: The patient comes in with chest pain. HISTORY OF PRESENTING ILLNESS: Ms. Nadia Renner with an extensive history of coronary artery disease, history of fibromyalgia, history of reflux esophagitis, history of breast cancer, thyroid cancer, history of multiple surgeries including partial nephrectomy, who was in her usual state of health until the day prior to admission. The patient started to have chest pain, which is described as retrosternal, radiating to the jaw area, pressure-like, and lasting for 30 to 40 minutes at a time. The patient came in and was admitted to the hospital for unstable angina. The patient recently had a cardiac cath with Dr. Roscoe Torrez, and was found to have inducible ischemia. PAST MEDICAL HISTORY: 1. History of gouty arthritis. 2. History of coronary artery disease. 3. History of hypertension. 4. History of hyperlipidemia. 5. History of statin intolerance. 6. History of diabetes mellitus with neuropathy and nephropathy. 7. History of hypothyroidism. 8. History of breast cancer. 9. History of thyroid cancer. 10. The patient also has incontinence. 11. Reflux esophagitis. 12. History of hypothyroidism secondary to thyroidectomy. MEDICATIONS: She takes at home: 1. Allopurinol 300 mg daily. 2. Ascorbic acid 500 mg daily. 3. Chlorzoxazone 500 mg b.i.d. 4. Clopidogrel 75 mg daily. 5. Colchicine 0.5 mg daily. 6. Diphenhydramine 25 mg as needed. 7. Lomotil tablets one tab p.o. q.6 hours. 8. Furosemide 20 mg daily. 9. Gabapentin 1200 mg 3 times a day. 10. Insulin glargine 40 units at nighttime. 11. Humalog sliding scale. 12. She is on letrozole 2.5 mg daily. 13. Losartan 25 mg daily. 14. Metoprolol 25 mg daily. 15. Myrbetriq 50 mg daily. 16. Nitroglycerin 0.4 mg q.6 hours as needed. 17. Protonix 40 mg q.a.m. 18. Promethazine 25 mg daily. 19. Ranexa 500 mg daily. 20. Aldactone 25 mg daily. 21. Carafate 1 g tablets daily. 22. Temazepam 30 mg daily. 23. [place] Thyroid 120 mg daily. 24. Tizanidine as needed. 25. Trazodone 100 mg at nighttime. PAST SURGICAL HISTORY: 1. History of partial left mastectomy with lymph node resection. 2. The patient also had a history of spinal cord stimulators. 3. Lumpectomy in the past. 4. Thyroidectomy. 5. Hernia repair. 6. Recent history of right kidney surgery for stone removal. 7. Back surgery x2. 8. History of Port-A-Cath placement. ADDITIONAL HISTORY: Includes: 1. Raynaud disease. 2. Irritable bowel disease. 3. Fibromyalgia. SOCIAL HISTORY: Lives with . No EtOH. No IV drug abuse. ALLERGIES: 1. ALLERGIC TO FLU VACCINE. 2. IODINATED CONTRAST MEDIA. 3. NSAIDS. 4. MYCINS. 5. PENICILLINS. 6. ACETAMINOPHEN. 7. AMITRIPTYLINE. 8. AMOXICILLIN. 9. . 10. ASPIRIN. 11. ATORVASTATIN. 12. ALL STATINS. 13. BACLOFEN. 14. BETAMETHASONE. 15. CEPHALEXIN. 16. CLAVULANIC ACID. 17. EZETIMIBE, WHICH IS ZETIA. FAMILY HISTORY: Positive for diabetes and hypertension. REVIEW OF SYSTEMS: Positive for chest pain. Positive for shortness of breath. Positive for nausea. No vomiting. No diarrhea. No constipation. No rectal bleeding. No hematochezia. No hematemesis. No diplopia. Positive for headaches at times. PHYSICAL EXAMINATION: GENERAL: The patient is alert and oriented x3. VITAL SIGNS: Temperature is 95.9, pulse 57, respirations 17, blood pressure is 167/77, pulse oximetry 98%. The patient is still complaining of some chest pain. The patient is a morbidly obese. HEENT: Positive for radiation scar present on the neck area and also for status post mastectomy. CVS: S1, S2 normal. Regular rate and rhythm. LUNGS: Clear to auscultation bilaterally. ABDOMEN: Nontender and nondistended, protuberant. EXTREMITIES: Positive for edema. LABORATORY VALUES: Initial white count is 7.79, hemoglobin of 12.9, hematocrit of 39.1. Chemistry shows sodium of 141, potassium of 4.4, BUN of 19, creatinine 0.92. Coags are within normal limits. IMAGING STUDIES: Chest x-ray shows cardiomegaly and pulmonary vascular congestion. ASSESSMENT: The patient's troponins have been trended to be negative so far. The laboratory values none. ASSESSMENT: A 69-year-old female with a history of coronary artery disease with unstable angina. PLAN: 1. Trend her troponins. Recent cardiac stress test is positive. The patient will probably need a cardiac cath by Cardiology. 2. Check her laboratory values, which includes lipid panel and also her thyroid panel for hypothyroidism. 3. Hypertension, continue with antihypertensive. 4. The patient is statin intolerance, we will try to start her on Welchol. 5. History of breast cancer and history of thyroid cancer. Continue with letrozole at this time. We will continue to monitor the patient. Also, we will give her IV Lasix 40 mg at this time for CHF. Further recommendation per clinical course. MD JEISON Waldrop/CHRISTOFER /[id number]
[2019-04-23 14:22] LABS: CREATINE KINASE MB 0.9 ng/mL (0-5.0)
--- NOTE | 2019-04-23 18:52 | NUR ---
Patient lying in bed with eyes open . Respiration even and unlabored without SOB. Call light in reach.
--- NOTE | 2019-04-23 20:00 | NUR ---
Received patient from day nurse, patient is alert and oriented x 3. safety and fall precautions maintained as per hospital protocol: bed in lowest position and locked, needed items beside bed and call bed placed close to patient.
--- NOTE | 2019-04-23 20:35 | NUR ---
REPORT GIVEN TO RONAK NEVES
[2019-04-23] MEDS: TRAZODONE HCL 50 MG TAB PO PRN (20:53)
[2019-04-23] MEDS ORDERED: NON-FORMULARY MEDICATION (Insulin Glargine (Lantus 3ML Pen) 40 UNITS) SC SCH (21:00)
[2019-04-23] MEDS: TEMAZEPAM 15 MG CAP PO PRN (21:52)
[2019-04-23] MEDS: ASCORBIC ACID 500 MG TAB PO SCH (21:54)
[2019-04-23] MEDS: INSULIN GLARGINE 100 UNITS/ML VIAL SQ SCH (22:01)
[2019-04-24] VITALS (7 sets, daily range): BP systolic 110–145; BP diastolic 54–65
[2019-04-24] MEDS: TIZANIDINE HCL 4 MG TAB PO PRN ×2 (01:43→20:51)
--- NOTE | 2019-04-24 02:05 | Consultation ---
DATE OF CONSULTATION: 04/23/2019 Cardiology Consult Note REASON FOR CONSULT: Chest pain. CHIEF COMPLAINT: Chest pain. HISTORY OF PRESENT ILLNESS: The patient is a 69-year-old female with multiple medical problems including history of coronary artery disease, fibromyalgia, GERD, breast cancer, thyroid cancer, multiple surgeries, who presents with sharp left-sided chest pain. She says it feels like pressure radiates to the jaw, occurs at rest. She has had similar chest pains at home and was seen in the office. Recently had a stress test in the office, which was abnormal and was scheduled to have an outpatient coronary angiogram performed this coming Thursday with Dr. Torrez. Currently, she says the chest pain is better, though still there at a low level. Denies any heart failure symptoms other than lower extremity edema, which she says has been there since she went to a [place] last week. PAST MEDICAL HISTORY: 1. Coronary artery disease. 2. Hypertension. 3. Hyperlipidemia. 4. Diabetes. 5. Hypothyroidism. 6. Breast cancer. 7. Thyroid cancer. 8. GERD. OUTPATIENT MEDICATIONS: Reviewed. ALLERGIES: REVIEWED. SOCIAL HISTORY: The patient does not smoke, drink, or abuse drugs. FAMILY HISTORY: Noncontributory. REVIEW OF SYSTEMS: As per HPI, otherwise negative. PHYSICAL EXAMINATION: VITAL SIGNS: Temperature afebrile, pulse 57, respiratory rate 20, blood pressure 130/61, saturating 94% on 2 L nasal cannula. GENERAL: Obese white female, in no acute distress. CARDIOVASCULAR: Regular rate and rhythm. No murmurs, rubs, or gallops. LUNGS: Clear to auscultation bilaterally. ABDOMEN: Soft, nontender, nondistended. NEURO AND PSYCH: Alert and oriented to person, place, and time. Normal affect. INPATIENT MEDICATIONS: Reviewed. LABORATORY DATA: Reviewed. Cardiac enzymes negative x3. Telemetry data reviewed shows normal sinus rhythm. EKG reviewed, shows no acute ischemic changes. ASSESSMENT: 1. Chest pain. 2. Aajpx-lm-dkhximw congestive heart failure exacerbation. 3. Recent coronary artery disease. 4. Recent positive stress test as an outpatient. PLAN: The patient has been ruled out for acute DC with serial cardiac enzymes. Chest x-ray did show some pulmonary congestion and she has gained weight recently including lower extremity edema. We will diurese her with IV diuretics. She has already planned for coronary angiogram, which will be performed while she is in the hospital, likely Thursday or Thursday. Thank you for this consult. We will continue to follow closely. MD LEA Smith/CHRISTOFER /[id number]
[2019-04-24] MEDS: ONDANSETRON HCL INJ 2MG/ML 2ML 2 MG/ML VIAL IV PRN ×3 (06:16→20:42)
[2019-04-24] MEDS: MORPHINE SULFATE 2 MG/ML SYR 1ML IV PRN ×3 (06:16→19:25)
[2019-04-24 06:43] LABS: BASOPHILS % 0.5 % (0.0-1.0); EOSINOPHILS # (AUTO) 0.2 (0.0-0.4); EOSINOPHILS % 3.4 % (0.0-6.0); HEMOGLOBIN 10.6 g/dL (12.0-16.0); LYMPHOCYTES # (AUTO) 1.6 (1.0-3.2); LYMPHOCYTES % 27.7 % (18.0-39.1); MEAN CORPUSCULAR HEMOGLOBIN 31.5 pg (28-32); MEAN CORPUSCULAR HGB CONC 31.2 g/dL (31-35); MEAN CORPUSCULAR VOLUME 100.9 fL (81-99); MONOCYTES # (AUTO) 0.6 (0.2-0.8); MONOCYTES % 10.7 % (4.4-11.3); NEUTROPHILS # (AUTO) 3.2 (2.1-6.9); NEUTROPHILS % 57.3 % (38.7-80.0); PLATELET COUNT 233 x10e3/uL (140-360); RED BLOOD COUNT 3.37 x10e6/uL (3.6-5.1)
--- NOTE | 2019-04-24 07:13 | NUR ---
patient endorsed to next shift for continuity of care.
[2019-04-24] MEDS: ALLOPURINOL 300 MG TAB PO SCH (08:30)
[2019-04-24] MEDS: SUCRALFATE 1 GM TAB PO SCH ×4 (08:30→20:50)
[2019-04-24] MEDS: METOPROLOL TARTRATE 25 MG TAB PO SCH (08:30)
[2019-04-24] MEDS: SPIRONOLACTONE 25 MG TAB PO SCH (08:30)
[2019-04-24] MEDS: PANTOPRAZOLE SOD 40 MG TABEC PO SCH ×2 (08:30→16:45)
[2019-04-24] MEDS: FUROSEMIDE INJ 10 MG/ML 4 ML VIAL IV SCH (08:30)
[2019-04-24] MEDS: THYROID 60 MG TAB PO SCH (08:30)
[2019-04-24] MEDS: LOSARTAN POTASSIUM 25 MG TAB PO SCH (08:30)
[2019-04-24] MEDS: GABAPENTIN 400 MG CAP PO SCH ×3 (08:30→20:50)
[2019-04-24] MEDS: RANOLAZINE 500 MG TABSR PO SCH ×2 (08:30→16:45)
[2019-04-24] MEDS: LETROZOLE 2.5MG PO SCH (09:00)
[2019-04-24] MEDS: MYRBETRIQ 50MG PO SCH (09:00)
[2019-04-24] MEDS: CHLORZOXAZONE 500 MG PO SCH ×2 (09:00→16:45)
[2019-04-24] MEDS: CLOPIDOGREL BISULFATE 75 MG TAB PO SCH (09:00)
--- NOTE | 2019-04-24 09:20 | NUR ---
patient spilled hot coffee on her left breast, states it does burn. redness to area, applied hydrogel to provide a cooling barrier to area.
--- NOTE | 2019-04-24 10:32 | Progress Note ---
DATE: 04/24/2019 SUBJECTIVE: A 69-year-old female, who comes in with chest pain. The patient with a history of coronary artery disease and also congestive heart failure. The patient has been diuresed at this time. The patient with continuous chest pain and some shortness of breath. She is on Nitro-paste, continues to have a headache or 2. MEDICATIONS: Reviewed. OBJECTIVE: VITAL SIGNS: Temperature is 95.5, pulse of 63, respirations of 18, blood pressure is 126/62, and pulse oximetry of 96%. HEENT: Normocephalic, atraumatic. Changes of radiation seen. CVS: S1, S2 normal. Regular rate and rhythm. Distant heart rate. LUNGS: Decreased air entry. ABDOMEN: Obese, protuberant, nontender, and nondistended. EXTREMITIES: No clubbing. No cyanosis. Positive for edema. LABORATORY DATA: The patient's laboratory values today's, white count was 5.6, hemoglobin of 10.6, hematocrit of 34.0. Chemistry shows sodium of 141 yesterday and BUN and creatinine of 19 and 0.92. Coags are normal. No imaging done today. ASSESSMENT: 1. Dgzxb-mk-tatjzjd congestive heart failure. 2. Coronary artery disease. 3. Hypertension. 4. Hyperlipidemia. 5. Diabetes. 6. Hypothyroidism. 7. Reflux disease. 8. History of breast cancer. 9. History of thyroid cancer. PLAN: The patient will have serial cardiac enzymes, which is negative. The patient is due to have a cardiac cath secondary to failed stress test. The patient will continue on IV diuresis. Further recommendation per clinical course. We will continue to monitor the patient. Possible cardiac cath tomorrow. Also, the patient is intolerant to statin. We will hold off on statins at this time and also the Zetia. MD JEISON Waldrop/MODL /[id number]
[2019-04-24] MEDS: INSULIN LISPRO 100 UNIT/1 ML 3ML VIAL SQ SCH ×2 (12:00→16:46)
[2019-04-24 13:00] LABS: CHOL/HDL RATIO 6.4 (3.0-3.6)
[2019-04-24 17:40] LABS: ANION GAP 11.7 mmol/L (8-16); CALCIUM 8.8 mg/dL (8.4-10.2); CREATININE, SERUM 1.32 mg/dL (0.57-1.11); POTASSIUM 4.7 mmol/L (3.5-5.1)
--- NOTE | 2019-04-24 19:15 | NUR ---
Received patient from day nurse, patient in bed , safety and fall precautions maintained as per hospital protocol: bed in lowest position and locked, needed items beside bed and call laura placed close to patient, yellow socks in place and falling star at the entrance of door. patient is currently stable will continue to monitor.
--- NOTE | 2019-04-24 19:18 | NUR ---
Received patient from day nurse, patient in bed , safety and fall precautions maintained as per hospital protocol: bed in lowest position and locked, needed items beside bed and call laura placed close to patient, yellow socks in place and falling star at the entrance of door. patient is currently stable will continue to monitor. patient npo for possible hrt cath
[2019-04-24] MEDS: ASCORBIC ACID 500 MG TAB PO SCH (20:50)
[2019-04-24] MEDS: TRAZODONE HCL 50 MG TAB PO PRN (20:52)
[2019-04-24] MEDS: INSULIN GLARGINE 100 UNITS/ML VIAL SQ SCH (21:02)
[2019-04-24] MEDS: TEMAZEPAM 15 MG CAP PO PRN (23:49)
[2019-04-25] VITALS (8 sets, daily range): BP systolic 118–145; BP diastolic 56–65
--- NOTE | 2019-04-25 04:29 | Progress Note ---
DATE: 04/24/2019 Cardiology Progress Note SUBJECTIVE: No major events overnight. No more chest pain. OBJECTIVE: VITAL SIGNS: Temperature afebrile, pulse 56, respiratory rate 22, blood pressure 128/61, and saturating 97% on 2 L cannula. GENERAL: female, well developed, well nourished in no acute distress. CARDIOVASCULAR: Regular rate and rhythm. No murmurs, rubs or gallops. LUNGS: Clear to auscultation bilaterally. ABDOMEN: Soft, nontender, nondistended. Obese. NEURO AND PSYCH: Alert and oriented to person, place and time. Normal affect. INPATIENT MEDICATIONS: Reviewed. LABORATORY DATA: Reviewed. Cardiac enzymes negative x3. TELEMETRY DATA: Reviewed, shows normal sinus rhythm. ASSESSMENT: 1. Chest pain. 2. Acute on chronic congestive heart failure exacerbation. 3. Coronary artery disease. 4. Recent positive stress test as an outpatient. PLAN: 1. Continue IV diuretics for lower extremity edema and shortness of breath. The patient was already scheduled for outpatient coronary angiogram on Thursday and this will be performed on Thursday as scheduled. Thank you for this consult. We will continue to follow. MD LEA Smith/CHRISTOFER /[id number]
[2019-04-25] MEDS: ONDANSETRON HCL INJ 2MG/ML 2ML 2 MG/ML VIAL IV PRN ×4 (05:47→21:38)
[2019-04-25] MEDS: MORPHINE SULFATE 2 MG/ML SYR 1ML IV PRN ×4 (05:47→21:38)
[2019-04-25 06:29] LABS: BASOPHILS % 0.5 % (0.0-1.0); EOSINOPHILS # (AUTO) 0.2 (0.0-0.4); EOSINOPHILS % 3.6 % (0.0-6.0); HEMATOCRIT 32.5 % (34.2-44.1); HEMOGLOBIN 10.2 g/dL (12.0-16.0); LYMPHOCYTES # (AUTO) 1.6 (1.0-3.2); LYMPHOCYTES % 26.1 % (18.0-39.1); MEAN CORPUSCULAR HEMOGLOBIN 31.7 pg (28-32); MEAN CORPUSCULAR HGB CONC 31.4 g/dL (31-35); MEAN CORPUSCULAR VOLUME 100.9 fL (81-99); MONOCYTES # (AUTO) 0.6 (0.2-0.8); NEUTROPHILS # (AUTO) 3.7 (2.1-6.9); NEUTROPHILS % 59.5 % (38.7-80.0); PLATELET COUNT 226 x10e3/uL (140-360); RED BLOOD COUNT 3.22 x10e6/uL (3.6-5.1); RED CELL DISTRIBUTION WIDTH 14.6 % (11.7-14.4)
--- NOTE | 2019-04-25 06:32 | NUR ---
Yaya npo will see patient in am Addendum: 04/25/19 at 0667 by Lewis Rizvi RN Spoke to Dr. GARCIA Concerning hrt cath
[2019-04-25 06:44] LABS: ALBUMIN 2.7 g/dL (3.5-5.0); ALBUMIN/GLOBULIN RATIO 0.9 (0.8-2.0); ANION GAP 13.4 mmol/L (8-16); CALCIUM 8.6 mg/dL (8.4-10.2); CREATININE, SERUM 1.29 mg/dL (0.57-1.11); MAGNESIUM 1.7 MG/DL (1.3-2.1); POTASSIUM 4.4 mmol/L (3.5-5.1)
--- NOTE | 2019-04-25 07:00 | NUR ---
Patient endorsed to next shift for continuity of care.
--- NOTE | 2019-04-25 07:51 | Progress Note ---
DATE: 04/25/2019 SUBJECTIVE: This is a 69-year-old female, who comes in with chest pain, history of coronary artery disease and positive stress test as an outpatient. Currently complains of chest pain, shortness of breath on exertion, on nitro patch. OBJECTIVE: VITAL SIGNS: Temperature is 97.5, pulse of 61, respirations 16, blood pressure is 125/58, pulse oximetry of 97% on 2 L. HEENT: Normocephalic, atraumatic. The patient is morbidly obese. CVS: S1, S2 normal. Regular rate and rhythm. ABDOMEN: Nontender, nondistended. EXTREMITIES: No clubbing. No cyanosis. Positive for trace edema. LABORATORY VALUES: Glucose has been 176. TSH is 10.43. CBC and CMP are pending today. Coags were essentially normal. MICROBIOLOGY: None. IMAGING STUDIES: None done since admission. ASSESSMENT: 1. Ssmdw-ps-rmbocsf congestive heart failure. 2. Coronary artery disease. 3. Hypertension. 4. Diabetes. 5. History of breast cancer. 6. History of thyroid cancer. PLAN: 1. Continue with current medication, IV diuresis. 2. The patient is scheduled for cardiac cath today and statin intolerance. 3. We will adjust her thyroid medications for hypothyroidism. Further recommendation and clinical course, we will continue monitor the patient along with the consultants. Planned discharge in a day or two depending on cath result. MD CHERRY WaldropJ/MODL /[id number]
[2019-04-25] MEDS: INSULIN LISPRO 100 UNIT/1 ML 3ML VIAL SQ SCH ×3 (08:00→17:00)
[2019-04-25] MEDS: FUROSEMIDE INJ 10 MG/ML 4 ML VIAL IV SCH (08:36)
[2019-04-25] MEDS: CHLORZOXAZONE 500 MG PO SCH ×2 (09:00→16:00)
[2019-04-25] MEDS: LETROZOLE 2.5MG PO SCH (09:00)
[2019-04-25] MEDS: MYRBETRIQ 50MG PO SCH (09:00)
[2019-04-25] MEDS: SPIRONOLACTONE 25 MG TAB PO SCH (10:04)
[2019-04-25] MEDS: SUCRALFATE 1 GM TAB PO SCH ×4 (10:04→21:36)
[2019-04-25] MEDS: PANTOPRAZOLE SOD 40 MG TABEC PO SCH ×2 (10:05→15:59)
[2019-04-25] MEDS: ALLOPURINOL 300 MG TAB PO SCH (10:05)
[2019-04-25] MEDS: RANOLAZINE 500 MG TABSR PO SCH ×2 (10:05→16:53)
[2019-04-25] MEDS: GABAPENTIN 400 MG CAP PO SCH ×3 (10:05→21:36)
[2019-04-25] MEDS: THYROID 60 MG TAB PO SCH (10:13)
[2019-04-25] MEDS: LOSARTAN POTASSIUM 25 MG TAB PO SCH (10:13)
[2019-04-25] MEDS: METOPROLOL TARTRATE 25 MG TAB PO SCH (10:13)
--- NOTE | 2019-04-25 11:02 | Progress Note ---
DATE: 04/25/2019 Cardiology Progress Note SUBJECTIVE: The patient continues to complain of chest pain. She denies shortness of breath. OBJECTIVE: VITAL SIGNS: Temperature 98.1 degrees, pulse 62, respiratory rate 20, blood pressure 145/65, oxygen saturation 97% on room air. GENERAL: Awake, alert, no acute distress, obese woman. LUNGS: Clear to auscultation bilaterally. No wheezes or crackles. CARDIOVASCULAR: Normal rate, regular rhythm. No murmur. Normal S1, S2. ABDOMEN: Soft, nontender. EXTREMITIES: No edema. CARDIAC MEDICATIONS: Metoprolol tartrate 25 mg p.o. daily, losartan 25 mg p.o. daily, ranolazine 500 mg p.o. b.i.d., spironolactone 25 mg p.o. daily, furosemide 40 mg IV daily. LABORATORY DATA: WBC 6.18, hemoglobin 10.2, hematocrit 32.5, platelets 226. Sodium 136, potassium 4.4, chloride 97, CO2 of 30, BUN 25, creatinine 1.29. TELEMETRY: Normal sinus rhythm. IMPRESSION: 1. Chest pain. 2. Acute on chronic congestive heart failure. 3. Coronary artery disease. 4. Recent abnormal nuclear stress test as an outpatient. RECOMMENDATIONS: The patient was scheduled for coronary angiogram as an outpatient on Thursday. We will keep patient as scheduled. N.p.o. after midnight. Continue current cardiac medications. The patient's blood pressure is labile, but generally adequately controlled. Thank you for this consult. We will continue to follow. Jaz Nava MD ABS/MODL /[id number]
[2019-04-25] MEDS: CLOPIDOGREL BISULFATE 75 MG TAB PO SCH (13:14)
[2019-04-25] MEDS: TIZANIDINE HCL 4 MG TAB PO PRN (13:14)
--- NOTE | 2019-04-25 18:45 | NUR ---
Received report from day RN. The patient is sitting up on the bed, not in distress. Bed height low, side rails up x2, call light within reach, and wheels lock.
--- NOTE | 2019-04-25 19:27 | NUR ---
Report given to oncoming nurse of patient's status. Resting in bed. No s/s of acute distress noted. Side rails upx2, call light within reach.
[2019-04-25] MEDS: ASCORBIC ACID 500 MG TAB PO SCH (21:36)
[2019-04-25] MEDS: INSULIN GLARGINE 100 UNITS/ML VIAL SQ SCH (21:37)
[2019-04-26] VITALS (15 sets, daily range): BP systolic 114–149; BP diastolic 36–87
[2019-04-26] MEDS: MORPHINE SULFATE 2 MG/ML SYR 1ML IV PRN ×5 (01:26→21:36)
[2019-04-26] MEDS: ONDANSETRON HCL INJ 2MG/ML 2ML 2 MG/ML VIAL IV PRN ×4 (01:26→17:00)
[2019-04-26] MEDS: THYROID 60 MG TAB PO SCH ×2 (05:05→06:33)
[2019-04-26] MEDS ORDERED: BISACODYL 5 MG TAB EC PO PRN ×2 (06:15→13:45)
--- NOTE | 2019-04-26 06:17 | NUR ---
Received order from Dr. Foss for constipation, Dulcolax 20 mg PO Q6H PRN.
--- NOTE | 2019-04-26 06:33 | NUR ---
Dr. Foss stated it is okay for the patient to take the thyroid medication prior to heart cath. RN administered the medication to the patient with sip of water
[2019-04-26 06:42] LABS: ANION GAP 11.7 mmol/L (8-16); CALCIUM 9.3 mg/dL (8.4-10.2); CREATININE, SERUM 1.66 mg/dL (0.57-1.11); POTASSIUM 4.7 mmol/L (3.5-5.1)
--- NOTE | 2019-04-26 07:27 | Progress Note ---
DATE: 04/26/2019 SUBJECTIVE: The patient is here for chest pain. The patient continues to have chest pain which is ongoing, on nitroglycerin, currently vaccine and weaning. The patient has not had any bowel movement for the last four days and is awaiting a cardiac cath today. Positive for some shortness of breath. She is on O2. OBJECTIVE: VITAL SIGNS: Temperature is 97.4, T-max of 99.5, pulse of 67, respirations of 18, blood pressure is 138/36, and pulse oximetry of 94% on 2 L of oxygen. GENERAL: The patient is alert and oriented x3. Morbidly obese. HEENT: Normocephalic and atraumatic. Nasal cannula on face. CVS: S1 and S2 distant. Regular rate and rhythm. ABDOMEN: Protuberant, nontender, and nondistended. EXTREMITIES: No clubbing. No cyanosis. Positive for trace edema. Positive for vascular changes in the lower extremities too. LABORATORY VALUES: Yesterday's white count 6.8, hemoglobin of 10.2, and hematocrit of 32.5. Chemistries are pending today. Coags are normal. ASSESSMENT: 69-year-old female with. 1. Chest pain, rule out acute coronary syndrome. Troponins have been trended to be negative. Cardiac cath is to be done today. Plan for changer fixer. 2. Ffpgo-zk-behmadi congestive heart failure continue with diuresis. 3. Coronary artery disease with failed outpatient stress test. 4. Morbid obesity. 5. Hypothyroidism. 6. Hypertension. 7. Hyperlipidemia with intolerance to statin. PLAN: Continue on current medication. Cardiac cath today. We can give her laxative after the cardiac cath. Further recommendation per clinical course. We will continue to monitor the patient. MD JEISON Waldrop/JESSICAL /[id number]
[2019-04-26] MEDS: SUCRALFATE 1 GM TAB PO SCH ×4 (07:30→20:22)
[2019-04-26] MEDS: INSULIN LISPRO 100 UNIT/1 ML 3ML VIAL SQ SCH ×3 (08:00→18:14)
--- NOTE | 2019-04-26 08:10 | NUR ---
Taken for procedure. No s/s of acute distress noted.
[2019-04-26] MEDS ORDERED: VERAPAMIL HCL 2.5 MG/ML 2 ML VIAL ONE (08:28)
[2019-04-26] MEDS ORDERED: BIVALRIUDIN 250 MG/VIAL VIAL IV ONE (08:28)
[2019-04-26] MEDS ORDERED: SODIUM CHLORIDE 0.9% 50ML 0 ML ONE (08:29)
[2019-04-26] MEDS ORDERED: LIDOCAINE HCL 2% LOCAL 20 ML VIAL ONE (08:29)
[2019-04-26] MEDS ORDERED: MIDAZOLAM HCL 2 MG/2 ML VIAL ONE (08:30)
[2019-04-26] MEDS ORDERED: HEPARIN SOD/SOD CHLORIDE 2,000 ML ONE (08:30)
[2019-04-26] MEDS ORDERED: IOPAMIDOL 370 MG/ML 200 ML INFUS..BTL INJ ONE (08:30)
[2019-04-26] MEDS ORDERED: SODIUM CHLORIDE 0.9% 1000ML 1,000 ML ONE (08:31)
[2019-04-26] MEDS ORDERED: FENTANYL CITRATE/PF 100MCG/2 ML INJ ONE (08:31)
[2019-04-26] MEDS ORDERED: METHYLPREDNISOLONE SOD SUCC 125 MG/2ML VIAL ONE (08:47)
[2019-04-26] MEDS ORDERED: DIPHENHYDRAMINE HCL INJ 50 MG/ML VIAL ONE (08:47)
[2019-04-26] MEDS: CHLORZOXAZONE 500 MG PO SCH ×3 (09:00→17:00)
[2019-04-26] MEDS: RANOLAZINE 500 MG TABSR PO SCH ×2 (09:00→17:00)
[2019-04-26] MEDS: PANTOPRAZOLE SOD 40 MG TABEC PO SCH ×2 (09:00→17:00)
[2019-04-26] MEDS: GABAPENTIN 400 MG CAP PO SCH ×3 (09:00→20:22)
[2019-04-26] MEDS: LETROZOLE 2.5MG PO SCH (09:00)
--- NOTE | 2019-04-26 09:07 | NUR ---
0925 bedside report received from Wilder NEVES. Alert oriented and appropriate, PERRLA, respirations even and unlabored to room air. Pulses x4 extremities equal and strong. Pedal pulses PT/DP x4. Cap fill brisk < 3 sec. Skin warm and dry integrity appears D/I IV left sc portacath at [id number], presents healthy w/o s/s of infiltration or complaint. Abdomen soft and supple. pt offered toileting, denies need to urinate or defecate. No personal affects with patient. Family Brannon. Pt and family verbalizes understanding of care. Currently w/o complaint of pain or need. sat 85 O2 added at 2lmn Tr band ok to decrease air at 1000am Rt Veinous sheath site intact NO neuro muscular abnormalities to rt wrist. Denies co at this time. Monitor NSR. ds/jean
--- NOTE | 2019-04-26 10:05 | NUR ---
1005RADIAL Compression removal: Initial Cuff volume 12 cc 1005 -2cc Removed No hematoma/bleeding noted with normal neurovascular function. 1020 -5 cc Removed No hematoma/ bleeding noted with normal neurovascular function. 1030 -5cc Removed No hematoma/bleeding noted with normal neurovascular function. Air removal completed. Report phoned and transported to floor care per bed with zoll Stasis achieved sterile 2x2,Tegaderm, Coban dressing No hematoma, bleeding noted with normal neurovascular function. Wrist splint in place. Pt instructed on POC. Ds/Rn
--- NOTE | 2019-04-26 10:53 | NUR ---
1053 Pt meets DC criteria.from dentures lab technician recovery area .Back to baseline orientation. Rt radial sheath (veinous) and rt TR band site intact w/o oozing. assessed for s/s of complication and presence of hematoma. Skin warm, dry, no discolor, and pulses present. IV remain intact from 100cchr til com. Distal tip appears intact. VS WNL. Pt denies pain, sob, or need at this time. Family at [place] with escort. Review POC verbalized understanding. KNOWS importance to remove rt wrist support tomorrow am. Needs setup up for home healthy O2 therapy. NO gross issues pain pallor pressure or dysrhythmia. Tranferred per bed,zoll and )2 at 2l mn NC. per RN escort. Report hand off to Jammie NEVES. juan/rn
--- NOTE | 2019-04-26 11:05 | NUR ---
Back from procedure. Splint to right hand. AAOX4 to time, person, place, situation. Respirations even and unlabored. Will continue to monitor.
[2019-04-26] MEDS: METOPROLOL TARTRATE 25 MG TAB PO SCH (12:10)
[2019-04-26] MEDS: MYRBETRIQ 50MG PO SCH (12:13)
[2019-04-26] MEDS: ALLOPURINOL 300 MG TAB PO SCH (12:14)
[2019-04-26] MEDS: FUROSEMIDE INJ 10 MG/ML 4 ML VIAL IV SCH (12:14)
[2019-04-26] MEDS: TIZANIDINE HCL 4 MG TAB PO PRN (12:14)
[2019-04-26] MEDS: SPIRONOLACTONE 25 MG TAB PO SCH (12:14)
[2019-04-26] MEDS: CLOPIDOGREL BISULFATE 75 MG TAB PO SCH (12:14)
[2019-04-26] MEDS: LOSARTAN POTASSIUM 25 MG TAB PO SCH (12:14)
--- NOTE | 2019-04-26 13:05 | NUR ---
ORDERS REC'D FOR HOME 02 PT QUALIFIES WITH SATS OF 82% WITH EXERTION ON ROOM AIR CHOICE LETTER SIGNED FOR [facility] [phone] COPY OF CHOICE LETTER TO PT AND ORIGINAL ON CHART ORDERS FAXED TO [phone]; CONFIRMATION REC'D PLAN DC TOMORROW SPOKE WITH CATRACHITO SINGLETON FOR [facility] WHO STATES PORTABLES WILL BE DELIVERED TO PT'S ROOM TODAY PT AWARE AND AGREEABLE WITH ABOVE PLAN
--- NOTE | 2019-04-26 13:40 | NUR ---
Visit made by the Spiritual Care Department Pastoral Visitor, Coral Crow. Pt sleeping soundly and no family present. Pastoral Visitor left a card describing availability of varnishing unit tool setter and instructions on how to contact a varnishing unit tool setter. EVELINE MURCIA Head Grinder Spiritual Care Department O: [phone] Pager: [phone] ([phone] calling from)
--- NOTE | 2019-04-26 19:10 | NUR ---
Report given to oncoming nurse of patient's status. Resting in bed, side rails upx2, call light within reach. No s/s of acute distress noted.
--- NOTE | 2019-04-26 19:17 | NUR ---
WALKING ROUNDS PERFORMED, RECEIVED PT LAYING SEMI FOWLERS IN BED, AAOX3, RR EVEN AND NON-LABORED, O2 BY NC AT 2L. NO S/SX OF DISTRESS NOTED. (R) WRIST IN BRACE S/P HEART CATH. LEFT PT LAYING SEMI FOWLERS IN BED, BED IN LOW LOCKED POSITION, SIDE RAILS UPX2, CALL LIGHT AND PHONE WITHIN REACH.
[2019-04-26] MEDS: ASCORBIC ACID 500 MG TAB PO SCH (20:22)
[2019-04-26] MEDS: INSULIN GLARGINE 100 UNITS/ML VIAL SQ SCH (20:22)
[2019-04-26] MEDS: TRAZODONE HCL 50 MG TAB PO PRN (20:25)
[2019-04-26] MEDS: TEMAZEPAM 15 MG CAP PO PRN (23:24)
[2019-04-27] VITALS: BP 151/66
--- NOTE | 2019-04-27 00:58 | Progress Note ---
DATE: 04/26/2019 Cardiology Progress Note SUBJECTIVE: The patient reports she continues to have chest pain. She denies any shortness of breath. Her cardiac catheterization was performed by Dr. Torrez today without evidence of significant coronary artery disease. However, she was noted to have elevation in her pulmonary pressures with mean PA pressure reported to be in the 40s. OBJECTIVE: VITAL SIGNS: Temperature 97.9 degrees, pulse 65, respiratory rate 18, blood pressure 145/66, and oxygen saturation 96%. GENERAL: Awake, alert, in no acute distress. LUNGS: Clear to auscultation bilaterally. No wheezes or crackles. CARDIOVASCULAR: Normal rate. Regular rhythm. No murmur. Normal S1, S2. ABDOMEN: Soft, nontender. EXTREMITIES: No edema. CARDIAC MEDICATIONS: Ranolazine 500 mg p.o. b.i.d., spironolactone 25 mg p.o. daily, losartan 25 mg p.o. daily, Plavix 75 mg p.o. daily, furosemide 40 mg IV daily, metoprolol tartrate 25 mg p.o. daily, Thyroid 150 mg p.o. daily. LABORATORY DATA: Sodium 137, potassium 4.7, chloride 98, CO2 of 32, BUN 29, creatinine 1.66. Telemetry, normal sinus rhythm. IMPRESSION: 1. Chest pain. 2. Acute on chronic congestive heart failure. 3. Hypertension. 4. Hyperlipidemia. 5. Hypothyroidism. 6. Morbid obesity. RECOMMENDATIONS: Cardiac catheterization performed without obstructive disease. No intervention was performed, given elevated pulmonary pressures. Home O2 evaluation has been ordered. Continue current cardiac medications otherwise. The patient's blood pressure is elevated today, but has previously been better controlled. We will monitor for now. Continue the patient on telemetry. Thank you for this consult. We will continue to follow. Jaz Nava MD ABS/MODL /[id number]
[2019-04-27] MEDS: MORPHINE SULFATE 2 MG/ML SYR 1ML IV PRN ×3 (01:40→10:22)
[2019-04-27 04:00] VITALS: BP 134/62
[2019-04-27] MEDS: THYROID 60 MG TAB PO SCH (05:53)
[2019-04-27 06:00] LABS: BASOPHILS % 0.1 % (0.0-1.0); HEMATOCRIT 34.3 % (34.2-44.1); LYMPHOCYTES # (AUTO) 0.7 (1.0-3.2); LYMPHOCYTES % 8.5 % (18.0-39.1); MEAN CORPUSCULAR HEMOGLOBIN 31.3 pg (28-32); MEAN CORPUSCULAR HGB CONC 32.1 g/dL (31-35); MEAN CORPUSCULAR VOLUME 97.4 fL (81-99); MONOCYTES # (AUTO) 0.2 (0.2-0.8); MONOCYTES % 2.7 % (4.4-11.3); NEUTROPHILS # (AUTO) 7.5 (2.1-6.9); NEUTROPHILS % 87.9 % (38.7-80.0); PLATELET COUNT 230 x10e3/uL (140-360); RED BLOOD COUNT 3.52 x10e6/uL (3.6-5.1); RED CELL DISTRIBUTION WIDTH 13.9 % (11.7-14.4)
[2019-04-27 06:20] LABS: ANION GAP 13.6 mmol/L (8-16); CALCIUM 9.3 mg/dL (8.4-10.2); CREATININE, SERUM 1.39 mg/dL (0.57-1.11); POTASSIUM 4.6 mmol/L (3.5-5.1)
[2019-04-27 07:38] VITALS: BP 184/87
[2019-04-27] MEDS: ASCORBIC ACID 500 MG TAB PO SCH (08:01)
[2019-04-27] MEDS: FUROSEMIDE INJ 10 MG/ML 4 ML VIAL IV SCH (08:01)
[2019-04-27] MEDS: CLOPIDOGREL BISULFATE 75 MG TAB PO SCH (08:01)
[2019-04-27] MEDS: GABAPENTIN 400 MG CAP PO SCH (08:01)
[2019-04-27] MEDS: ALLOPURINOL 300 MG TAB PO SCH (08:01)
[2019-04-27] MEDS: LOSARTAN POTASSIUM 25 MG TAB PO SCH (08:01)
[2019-04-27] MEDS: METOPROLOL TARTRATE 25 MG TAB PO SCH (08:02)
[2019-04-27] MEDS: PANTOPRAZOLE SOD 40 MG TABEC PO SCH (08:02)
[2019-04-27] MEDS: CHLORZOXAZONE 500 MG PO SCH (08:02)
[2019-04-27] MEDS: SPIRONOLACTONE 25 MG TAB PO SCH (08:02)
[2019-04-27] MEDS: RANOLAZINE 500 MG TABSR PO SCH (08:02)
[2019-04-27] MEDS: SUCRALFATE 1 GM TAB PO SCH ×2 (08:02→12:10)
[2019-04-27] MEDS: LETROZOLE 2.5MG PO SCH (08:03)
[2019-04-27] MEDS: INSULIN LISPRO 100 UNIT/1 ML 3ML VIAL SQ SCH ×2 (08:03→12:11)
[2019-04-27] MEDS: MYRBETRIQ 50MG PO SCH (08:03)
--- NOTE | 2019-04-27 09:20 | NUR ---
EDUCATED ABOUT IMM, SIGNED, FILED IN CHART, WITH COPY LEFT WITH FAMILY AT BEDSIDE.
[2019-04-27 09:27] VITALS: BP 184/87
--- NOTE | 2019-04-27 10:46 | Progress Note ---
DATE: 04/27/2019 Progress Note and Discharge Note SUBJECTIVE: The patient is a 69-year-old female, who comes in with acute chest pain. The patient had a failed outpatient stress test. The patient had a cardiac cath yesterday, which was within normal limits. The patient is still complaining of chest pain. Currently on medicines including clopidogrel, losartan, metoprolol, morphine sulfate, Ranexa, and tizanidine for pain control. REVIEW OF SYSTEMS: Positive for chest pain. Positive for some shortness of breath. No nausea, vomiting, or diarrhea. Positive for constipation. No rectal bleeding. No hematochezia. PHYSICAL EXAMINATION: VITAL SIGNS: Temperature is 95.8, pulse of 62, respirations of 18, blood pressure is 134/62, and pulse oximeter of 98% on room air. HEENT: Normocephalic, atraumatic. Pupils are reactive to light and accommodation. The patient is morbidly obese. CVS: S1, S2 distant. Regular rate and rhythm. ABDOMEN: Nontender, nondistended. EXTREMITIES: No clubbing, trace edema present. LABORATORY VALUES: Today's white count is 8.5, hemoglobin of 11 and hematocrit of 34.3. Sodium 136, potassium 4.6, BUN of 29, and creatinine of 1.39, which is improving. ASSESSMENT AND PLAN: 1. Chest pain, status post cardiac catheterization without any obstructive disease. No intervention was performed. 2. Acute on chronic congestive heart failure. The patient is currently on Lasix. Home O2 evaluation has been ordered. Cardiac medication as mentioned above and Ranexa for chest pain. 3. Hyperlipidemia. Continue watching. The patient is intolerant to statin. May start Welchol 650 mg 3 tablets twice a day, but we will hold off in lieu of her constipation at this time. 4. Hypothyroidism. Continue with medication. 5. Morbid obesity. The patient needs to lose weight, which will significantly help for chest pain and also other comorbidities. MD JEISON Waldrop/MODL /[id number]
[2019-04-27 11:54] VITALS: BP 162/75
[2019-04-27] MEDS ORDERED: HEPARIN SOD (PORCINE) 1000 UNIT/ML SDV ONE (12:46)
[2019-04-27] MEDS ORDERED: HEPARIN 500 UNITS/5ML MDV INJ ONE (13:00)
--- NOTE | 2019-04-27 13:00 | NUR ---
LEFT PORT DEACCESEED FLUSHED WITH NS AND HEP PER PROTOCOL IMMOBILIZER FROM RIGHT WRIST AND COBAN REMOVED DRESSING ON WRIST REMAINS DRY AND INTACT INSTRUCTIONS TO NOT USE RIGHT ARM GIVEN. PT VERBALIZED UNDERSTANDING DISCHARGE INSTRUCTIONS GIVEN. PT VERBALIZED UNDERSTANDING AND FOLLOW UP VISIT PT HAS 02 TANK AT HOME, AWARE SHE NEEDS TO CALL PRIOR TO GOING TO HOME TO SET UP HOME 02 PT IS NOW WAITING FOR RIDE HOME
--- NOTE | 2019-04-27 14:41 | NUR ---
pt off unit to home via wheel chair at this time
--- NOTE | 2019-05-08 02:47 | Discharge Summary ---
HISTORY: This patient came in for chest pain, was admitted to the hospital, seen over the weekend. The patient was scheduled for cardiac cath. The patient came with acute diastolic dysfunction. The patient was given Lasix diuretics. The patient also was found to be hypoxic. O2 was started. The patient's cardiac cath was done, showed mild CAD with 10 and 20%. The patient was started on medical treatment. Also, the patient was found to have pulmonary hypertension and possible referral with Pulmonology as an outpatient was discussed. The patient's O2 status was low. The patient needed supplemental O2 at home with home O2 evaluation was done. The patient received home O2 and delivered home. The patient also was noted to have severe pulmonary hypertension with elevated pressures. Again, recommendations were done to see Dr. Saunders as an outpatient, also consult with Dr. Jimmy Amaro as an outpatient. For further information, look in the chart. For medicines on discharge, look in medical reconciliation sheet. FINAL DIAGNOSES: Acute diastolic dysfunction, severe pulmonary hypertension, morbid obesity, chronic obstructive pulmonary disease, hypoxia, history of breast cancer and history of thyroid cancer, also, her thyroid levels were adjusted while in the hospital. MD JEISON Waldrop/JESSICAL /[id number]
== END 2019-04-27 14:38 | disposition home or self-care (01) | DRG 287 ==
LOC: ER 01:17 → ERHOLD 02:25 → MED/SURG 04:29 → OBSVTOIN 04-25 13:28
PROVIDERS: ADMIT Family Medicine; ATTEND Family Medicine
PROC: 4A023N6 Measurement of Cardiac Sampling and Pressure, Right Heart, Percutaneous Approach (ICD-10-PCS; principal; 2019-04-26)
PROC: B2111ZZ Fluoroscopy of Multiple Coronary Arteries using Low Osmolar Contrast (ICD-10-PCS; 2019-04-26)
DX: I11.0 Hypertensive heart disease with heart failure (principal); Z68.43 Body mass index [BMI] 50.0-59.9, adult; I50.33 Acute on chronic diastolic (congestive) heart failure; M10.9 Gout, unspecified; E78.5 Hyperlipidemia, unspecified; E11.40 Type 2 diabetes mellitus with diabetic neuropathy, unspecified; Z79.4 Long term (current) use of insulin; E11.21 Type 2 diabetes mellitus with diabetic nephropathy; Z85.850 Personal history of malignant neoplasm of thyroid; R32 Unspecified urinary incontinence; E89.0 Postprocedural hypothyroidism; M79.7 Fibromyalgia; Z85.3 Personal history of malignant neoplasm of breast; Z90.12 Acquired absence of left breast and nipple; I73.00 Raynaud's syndrome without gangrene; K58.9 Irritable bowel syndrome, unspecified; E11.9 Type 2 diabetes mellitus without complications; K21.9 Gastro-esophageal reflux disease without esophagitis; E66.01 Morbid (severe) obesity due to excess calories; R60.0 Localized edema; R09.02 Hypoxemia; I27.20 Pulmonary hypertension, unspecified; I25.110 Atherosclerotic heart disease of native coronary artery with unstable angina pectoris
CPT/HCPCS: 36415; 71045; 80048; 80053; 80061; 82550; 82553; 82948; 83735; 84443; 84484; 85025; 85730; 93005; 93451; 93454; 96374; 99284; C1751; C1766; C1769; C1887; G0378; J0583; J1200; J1644; J1815; J1940; J2001; J2250; J2270; J2405; J2930; J3010; J7030; Q9967

== ENCOUNTER → 2019-10-05 | Outpatient (CLI) | payer MEDICARE ==
[~2019-10-05] MED LIST changes: +ARMOUR THYROID120 MG PO; +BREO ELLIPTA 11 EACH INH; +CHLORZOXAZONE500 MG PO; +CLOPIDOGREL75 MG PO; +FUROSEMIDE20 MG PO; +GABAPENTIN400 MG PO; +HUMALOG100 UNIT/1 SQ; +RANEXA500 MG PO; +SUCRALFATE1 GM PO; +TRAZODONE HCL100 MG PO
--- NOTE | 2019-10-05 09:12 | Diagnostic Imaging Report ---
EXAM: RIBS UNILAT W/CXR DATE: 10/05/2019 8:25 AM INDICATION: Dyspnea COMPARISON: 09/04/2019 FINDINGS: Frontal view of the chest as well as multiple projections of the right rib cage were obtained. There are stimulator device again identified overlying the mid thoracic spine. Right-sided pacing device and left-sided IJ chest port identified in stable position. The trachea is midline. The lungs are symmetrically expanded without evidence for large focal consolidation, pneumothorax, or significant pleural effusion. The cardiomediastinal silhouette is stable in appearance. There are degenerative changes of the visualized spine and shoulders. No acute osseous abnormality is identified. Specifically, no radiographically evident acute right-sided rib fracture is appreciated. IMPRESSION: No acute cardiopulmonary process identified. No radiographically evident right-sided rib fracture appreciated. Signed by: Dr. James Joshi MD on 10/05/2019 9:09 AM
== END ==
LOC: RAD 08:14
PROVIDERS: ATTEND Family Medicine
DX: R07.81 Pleurodynia (principal)
CPT/HCPCS: 71101

== ENCOUNTER 2019-10-23 18:12 | Inpatient (IN) | payer MEDICARE ==
[~2019-10-23] VITALS: Ht 165.1 cm; Wt 122.5 kg
[2019-10-23] MEDS ORDERED: METHYLPREDNISOLONE SOD SUCC 125 MG/2ML VIAL IV STA (18:34)
[2019-10-23] MEDS ORDERED: SODIUM CHLORIDE 0.9% 1000ML 1,000 ML IV STA (18:34)
[2019-10-23] MEDS ORDERED: CEFTRIAXONE SOD 1 GM/NS 50 ML 50 ML IV STA (18:34)
[2019-10-23] MEDS ORDERED: AZITHROMYCIN 500MG/NS 250 ML 250 ML IV ONE (18:34)
[2019-10-23] MEDS ORDERED: ACETAMINOPHEN 325 MG TAB PO ONE (18:45)
[2019-10-23] MEDS ORDERED: ASPIRIN 81 MG CHEW TAB PO ONE (18:45)
[2019-10-23] MEDS ORDERED: LEVOFLOXACIN 500MG/D5W 100ML 100 ML IV ONE (18:57)
[2019-10-23] MEDS: ALBUTEROL SULF 0.083% NEB SOLN 3 ML NEB NEB SCH (19:10)
[2019-10-23] MEDS ORDERED: ACETAMINOPHEN 325 MG TAB ONE (19:14)
[2019-10-23 19:24] LABS: BASOPHILS % 0.2 % (0.0-1.0); EOSINOPHILS % 0.2 % (0.0-6.0); HEMATOCRIT 35.3 % (34.2-44.1); HEMOGLOBIN 11.5 g/dL (12.0-16.0); LYMPHOCYTES # (AUTO) 1.1 (1.0-3.2); LYMPHOCYTES % 8.3 % (18.0-39.1); MEAN CORPUSCULAR HEMOGLOBIN 31.6 pg (28-32); MEAN CORPUSCULAR HGB CONC 32.6 g/dL (31-35); MONOCYTES # (AUTO) 1.3 (0.2-0.8); MONOCYTES % 9.3 % (4.4-11.3); NEUTROPHILS # (AUTO) 11.2 (2.1-6.9); NEUTROPHILS % 81.5 % (38.7-80.0); PLATELET COUNT 298 x10e3/uL (140-360); RED BLOOD COUNT 3.64 x10e6/uL (3.6-5.1); RED CELL DISTRIBUTION WIDTH 14.8 % (11.7-14.4)
[2019-10-23 19:29] LABS: INR 0.87; PARTIAL THROMBOPLASTIN TIME 26.8 seconds (23.8-35.5); PROTHROMBIN TIME 12.3 seconds (11.9-14.5)
[2019-10-23 19:33] LABS: CLARITY,URINE CLEAR (CLEAR); COLOR,URINE YELLOW (YELLOW)
[2019-10-23 19:34] LABS: BILIRUBIN,URINE NEGATIVE (NEGATIVE); KETONES,URINE NEGATIVE (NEGATIVE); LEUKOCYTE ESTERASE ,URINE NEGATIVE (NEGATIVE); NITRITE,URINE NEGATIVE (NEGATIVE); PROTEIN,URINE DIPSTICK NEGATIVE (NEGATIVE); URINE UROBILINOGEN 0.2 mg/dL (0.2 - 1)
[2019-10-23 19:40] LABS: ALBUMIN 3.5 g/dL (3.5-5.0); ALBUMIN/GLOBULIN RATIO 0.9 (0.8-2.0); ANION GAP 13.4 mmol/L (8-16); CALCIUM 9.7 mg/dL (8.4-10.2); CREATININE, SERUM 1.09 mg/dL (0.57-1.11); POTASSIUM 4.4 mmol/L (3.5-5.1)
[2019-10-23 19:46] LABS: CREATINE KINASE MB 0.9 ng/mL (0-5.0)
[2019-10-23 19:48] LABS: B-TYPE NATRIURETIC PEPTIDE2 58.8 pg/mL (0-100)
[2019-10-23] MEDS ORDERED: ONDANSETRON HCL INJ 2MG/ML 2ML 2 MG/ML VIAL IV STA (20:09)
[2019-10-23 20:11] LABS: BACTERIA,URINE RARE /HPF; EPITHELIAL CELLS,URINE FEW /LPF; RBC,URINE 0-5 /HPF (0-5); WBC,URINE (MAN) 0-5 /HPF (0-5)
[2019-10-23] MEDS ORDERED: SODIUM CHLORIDE 0.9% 1000ML 1,000 ML IV ONE (20:15)
[2019-10-23] MEDS: LEVOFLOXACIN 750MG/D5W 150ML IV SCH (20:54)
--- NOTE | 2019-10-23 21:05 | Diagnostic Imaging Report ---
EXAMINATION: CHEST SINGLE (PORTABLE) INDICATION: Hurts to breathe COMPARISON: Chest x-ray 09/04/2019 FINDINGS: TUBES and LINES: Right chest wall cardiac device with leads in right atrium and right ventricle. Thoracic spine stimulator device projects in the lower mid spine. Left chest wall port with left IJ central venous catheter, tip in the mid SVC.. LUNGS: Normal lung volumes. Mild prominence of pulmonary interstitium. Prominent central pulmonary vasculature. Bilateral infrahilar haziness. PLEURA: Partial obscuration of the lateral aspect of left hemidiaphragm. HEART AND MEDIASTINUM: Cardiac size is mildly enlarged. BONES AND SOFT TISSUES: No acute osseous lesion. Metallic densities in the base of neck/ upper chest. Degenerative changes in the spine and shoulders. UPPER ABDOMEN: No free air under the diaphragm. IMPRESSION: Mild cardiomegaly and pulmonary vascular congestion, mild pulmonary interstitial edema is suspected. A small left pleural effusion is possible. Bilateral infrahilar haziness can be due to atelectasis or pneumonia. Signed by: Rocky Mejia DO on 10/23/2019 9:02 PM
[2019-10-23] MEDS ORDERED: MIDODRINE HCL2.5 MG PO (22:35)
--- NOTE | 2019-10-23 22:47 | NUR ---
dr moses paged regarding home medication reconciliation
[2019-10-23] MEDS ORDERED: TRAMADOL HCL 50 MG TAB PO ONE (23:45)
[2019-10-24] MEDS ORDERED: MORPHINE SULFATE 2 MG/ML SYR 1ML IV STA (00:03)
[2019-10-24] MEDS: IPRATROPIUM BROMIDE 0.02% 2.5 ML NEB NEB SCH ×4 (00:05→20:10)
[2019-10-24] MEDS: ALBUTEROL SULF 0.083% NEB SOLN 3 ML NEB NEB SCH ×5 (00:05→20:10)
[2019-10-24 05:07] LABS: CREATINE KINASE 26 IU/L (29-168)
[2019-10-24] MEDS ORDERED: COLCHICINE 0.6 MG TAB PO PRN (07:00)
[2019-10-24] MEDS ORDERED: DIPHENHYDRAMINE HCL 25 MG CAP PO PRN (07:00)
[2019-10-24] MEDS ORDERED: NITROGLYCERIN 0.4 MG SUBL SL PRN (07:00)
[2019-10-24] MEDS ORDERED: PROMETHAZINE HCL 25 MG TAB PO PRN (07:00)
--- NOTE | 2019-10-24 07:15 | NUR ---
report given to tato pena
[2019-10-24] MEDS: SUCRALFATE 1 GM TAB PO SCH ×4 (07:43→21:00)
[2019-10-24] MEDS: ACETAMINOPHEN 325 MG TAB PO PRN (07:43)
[2019-10-24] MEDS: PANTOPRAZOLE SOD 40 MG TABEC PO SCH ×2 (08:28→17:23)
[2019-10-24] MEDS: METOPROLOL TARTRATE 25 MG TAB PO SCH (08:28)
[2019-10-24] MEDS: MORPHINE SULFATE 2 MG/ML SYR 1ML IV PRN ×3 (08:28→21:13)
[2019-10-24] MEDS: LOSARTAN POTASSIUM 25 MG TAB PO SCH (08:28)
[2019-10-24] MEDS: SPIRONOLACTONE 25 MG TAB PO SCH (08:28)
[2019-10-24] MEDS: CLOPIDOGREL BISULFATE 75 MG TAB PO SCH (08:28)
[2019-10-24] MEDS: ALLOPURINOL 300 MG TAB PO SCH (08:28)
[2019-10-24] MEDS ORDERED: FUROSEMIDE 40 MG TAB PO SCH (09:00)
[2019-10-24] MEDS: THYROID 60 MG TAB PO SCH (09:10)
[2019-10-24] MEDS: GABAPENTIN 400 MG CAP PO SCH ×3 (09:10→21:00)
[2019-10-24] MEDS: RANOLAZINE 500 MG TABSR PO SCH ×2 (09:10→17:23)
[2019-10-24] MEDS: NON-FORMULARY MEDICATION (Letrozole 2.5 MG) PO SCH (09:10)
--- NOTE | 2019-10-24 10:05 | History and Physical ---
The patient is in the ER #1. CHIEF COMPLAINT: The patient comes in with chest pain, right-sided and also fever. HISTORY OF PRESENT ILLNESS: Ms. Nadia Renner with a history of pulmonary hypertension, history of sleep apnea, history of reflux esophagitis, who was in usual state of health until 2 days prior to admission. The patient had BiPAP on and the patient is swallowing water. Prior to this, the patient had a piece of banana and her dinner too and suddenly the patient woke up with chest pain and also with coughing spells. The patient knew that she had aspirated water prior to this, came into the emergency room, was found to have aspiration pneumonia and the patient is admitted for aspiration pneumonia and fever. PAST MEDICAL HISTORY: History of gouty arthritis, history of hypertension, history of coronary artery disease, history of hyperlipidemia, history of thyroid cancer, history of breast cancer, history of diabetes with neuropathy, nephropathy, history of orthostatic hypertension, history of chronic chest pain, history of hyperlipidemia, history of reflux esophagitis, history of hypothyroidism, surgical and history of chronic sleep related problems and sleep apnea. PAST SURGICAL HISTORY: History of thyroidectomy, history of mastectomy, history of radiation, history of 2 stents put in, history of low back surgery, history of foot surgery, history of pacemaker placement recently, and history of pain stimulator put on the back for back pain. MEDICATIONS: She takes at home are allopurinol 300 mg daily, chlorzoxazone 500 mg twice a day, clopidogrel 75 mg daily, colchicine 0.6 mg daily, diphenhydramine 25 mg q.6 hours, Lomotil q.6 hours, fluticasone Breo 125 twice a day, furosemide 40 mg daily, gabapentin 400 mg daily, glargine 60 units at nighttime, Humalog sliding scale, letrozole 2.5 mg daily, losartan 25 mg daily, metoprolol 25 mg twice a day, midodrine 2.5 mg t.i.d., Myrbetriq 50 mg daily, nitroglycerin as needed, pantoprazole 40 daily, Promethazine as needed, Ranexa 1000 mg twice a day, Aldactone 25 mg daily, Carafate 1 g daily, temazepam 30 mg daily, [place] Thyroid 120 mg daily, trazodone 100 mg daily, and tizanidine 4 mg as needed. ALLERGIES: THE PATIENT HAS MULTIPLE ALLERGIES INCLUDING INFLUENZA VIRUS VACCINE, MYCINS, NSAIDS, PENICILLIN, SUMATRIPTAN, AMOXICILLIN, , ASPIRIN, ATORVASTATIN, BACLOFEN, CLAVULANIC ACID AND ERYTHROMYCIN BASE. NONE OF THESE ARE DOCUMENTED ALLERGIES. THE PATIENT GETS RASH APPARENTLY WITH MOST OF THE ANTIBIOTICS. SOCIAL HISTORY: No EtOH. No IV drug abuse. The patient lives with her . The patient is also O2 dependent because of pulmonary hypertension. REVIEW OF SYSTEMS: Positive for chest pain. Positive for shortness of breath. No nausea. No vomiting. No diarrhea. Positive for reflux esophagitis. No constipation. No rectal bleeding. No hematochezia. No hematemesis. Positive for generalized fatigue. Positive for incontinence. No diplopia. No blurry vision. PHYSICAL EXAMINATION: VITAL SIGNS: Temperature is 101.1, T-max , pulse of 70, respirations of 18, blood pressure is 137/57, pulse oximetry of 97% O2 at 2 L. HEENT: Normocephalic and atraumatic. CVS: S1 and S2 normal. Regular rate and rhythm. ABDOMEN: Nontender, nondistended. LUNGS: Decreased air entry in all lung velásquez. Positive for some crackles and rhonchi on the right side. EXTREMITIES: No clubbing. No cyanosis. Positive for trace edema INTEGUMENTARY SYSTEM: Normal and anterior chest wall pacemaker present and low back positive for pain stimulator. LABORATORY VALUES: The patient's white count is 13,000, hemoglobin 11.5, hematocrit 35.3. Chemistry shows sodium 140, potassium 4.4, BUN of 32, creatinine of 1.09 with eGFR of 50. Serology, negative influenza. MICROBIOLOGY: Urine cultures have been done. Blood culture is pending. ASSESSMENT: Ms. Nadia Renner with: 1. Aspiration pneumonia. Plan is to continue on Levaquin, which has been started, although not adequate coverage. We will continue using Levaquin. The patient is allergic to all mycins and all penicillins. 2. Pulmonary hypertension, hypoxia, and history of sleep apnea. Plan to continue BiPAP and continue with oxygen supplementation and albuterol and Atrovent treatment as needed. 3. Chest pain with a history of coronary artery disease with 2 stents. Restart all her home medications and also consult Cardiology. 4. Morbid obesity. 5. Diabetes with neuropathy and nephropathy. Continue monitoring her kidney function, some blood sugar levels, and put on a sliding scale. 6. Hyperlipidemia. Continue with antilipidemic agents. 7. Chronic renal failure, chronic kidney disease stage 2. Continue monitoring her creatinine. 8. Neuropathy. Continue on gabapentin. PLAN: Consult also Cardiology and Pulmonary for aspiration pneumonia and chest pain and coronary artery disease. Further recommendation per clinical course. We will continue to monitor the patient. DISPOSITION: Plan to stay for 1 to 2 days depending on progression of the disease. MD JEISON Waldrop/MODL /[id number]
[2019-10-24 10:40] VITALS: BP 137/63
--- NOTE | 2019-10-24 10:40 | NUR ---
PATIENT RECEIVED FROM ER PER WHEEL CHAIR. ALERT AND VERBALLY RESPONSIVE, ASSISTED TO THE RESTROOM AND BACK TO BED. O2 APPLIED AT 2L VIA N/C. SKIN WARM AND DRY TO TOUCH, RESPIRATION EVEN AND UNLABORED, ABDOMEN SOFT AND NON DISTENDED. ORIENTED TO SURROUNDING, BED IN LOWER POSITION, CALL LIGHT AT REACH. INSTRUCTED TO CALL FOR ASSISTANCE NEEDED.
[2019-10-24 11:30] VITALS: BP 137/63
[2019-10-24] MEDS ORDERED: DEXTROSE 50% SYRINGE 50 ML IV PRN (12:00)
[2019-10-24] MEDS: INSULIN REGULAR, HUMAN 100 UNIT/1 ML 3ML VIAL SQ SCH ×3 (12:17→21:00)
[2019-10-24] MEDS: ONDANSETRON HCL INJ 2MG/ML 2ML 2 MG/ML VIAL IV PRN ×2 (12:18→21:13)
[2019-10-24 14:08] LABS: CREATINE KINASE 49 IU/L (29-168)
[2019-10-24 15:38] VITALS: BP 138/64
--- NOTE | 2019-10-24 15:39 | NUR ---
BED SIDE MBS COMPLETED, OK TO FEED PATIENT.
[2019-10-24] MEDS ORDERED: INSULIN REGULAR, HUMAN 100 UNIT/1 ML 3ML VIAL SQ SCH (16:30)
[2019-10-24 20:00] VITALS: BP 144/65
[2019-10-24] MEDS ORDERED: SODIUM CHLORIDE 0.9% 250ML 250 ML ONE (20:08)
[2019-10-24] MEDS: LEVOFLOXACIN 750MG/D5W 150ML IV SCH (20:15)
[2019-10-24] MEDS: INSULIN GLARGINE 100 UNITS/ML VIAL SC SCH (21:00)
[2019-10-24] MEDS ORDERED: TRAZODONE HCL 50 MG TAB PO PRN (21:00)
[2019-10-24] MEDS ORDERED: TEMAZEPAM 15 MG CAP PO PRN (21:00)
[2019-10-24 22:00] VITALS: BP 138/64
[2019-10-25] VITALS (8 sets, daily range): BP systolic 124–155; BP diastolic 58–65
[2019-10-25] MEDS: IPRATROPIUM BROMIDE 0.02% 2.5 ML NEB NEB SCH ×5 (00:45→20:00)
[2019-10-25] MEDS: ALBUTEROL SULF 0.083% NEB SOLN 3 ML NEB NEB SCH ×6 (00:45→20:00)
--- NOTE | 2019-10-25 00:53 | Consultation ---
DATE OF CONSULTATION: 10/24/2019 Cardiology Consultation REQUESTING PHYSICIAN: Praveen Foss MD REASON FOR CONSULTATION: Chest pain. HISTORY OF PRESENT ILLNESS: This is a 69-year-old woman with history of coronary artery disease status post stent, pulmonary hypertension, hypertension, hyperlipidemia, diabetes mellitus, chronic kidney disease, and permanent pacemaker, who presents with complaints of chest pain. The patient reports she had been in her usual state of health until 2 days prior. The patient reports that she thinks she had aspirated while drinking water Thursday night. She was unable to cough up the water, but felt well, so she went back to sleep. On Thursday around 12:30, she woke up with sharp crushing chest pain, 9/10 in severity. This was constant with radiation to the back associated with shortness of breath. She states the pain was slightly improved with sublingual nitroglycerin, but did not completely resolve. Due to these complaints, she presented to the ER for further evaluation due to concern for aspiration pneumonia. She does report experiencing fever and chills yesterday. Otherwise, denies any edema, orthopnea, or PND. She indicates she has chest pain and dyspnea on exertion with ambulation chronically, which is unchanged. REVIEW OF SYSTEMS: Negative except as per HPI. PAST MEDICAL HISTORY: 1. Coronary artery disease with prior stent. 2. Pulmonary hypertension. 3. Hypertension. 4. Hyperlipidemia. 5. Diabetes mellitus. 6. History of thyroid cancer. 7. Chronic kidney disease. 8. Permanent pacemaker for bradycardia. 9. Obstructive sleep apnea, on CPAP. PAST SURGICAL HISTORY: 1. Hysterectomy. 2. Back surgery x2. 3. Cataract surgery. 4. Spinal cord stimulator. 5. Hernia repair. 6. Appendectomy. 7. Left shoulder repair. 8. Left knee repair. 9. Left breast lumpectomy. SOCIAL HISTORY: No tobacco or alcohol. FAMILY HISTORY: Noncontributory to current illness. ALLERGIES: PLEASE SEE EMR. MEDICATIONS: Please see medication list. PHYSICAL EXAMINATION: VITAL SIGNS: Temperature 98.8 degrees, pulse 88, respiratory rate 16, blood pressure 144/62, oxygen saturation 98% on 2 L nasal cannula. GENERAL: Elderly, obese woman, no acute distress. Awake and alert. Well-developed, well-nourished. HEENT: Normocephalic, atraumatic. Pupils equal. No scleral icterus. NECK: Supple. No thyromegaly or cervical lymphadenopathy. No carotid bruits. LUNGS: Clear to auscultation bilaterally. No wheezes or crackles. CARDIOVASCULAR: Normal rate, regular rhythm. No murmur. Normal S1, S2. ABDOMEN: Soft, nontender. EXTREMITIES: No edema. NEUROLOGIC: Nonfocal exam. LABORATORY DATA: WBC 13.7, hemoglobin 11.5, hematocrit 35.3, platelets 298. Sodium 140, potassium 4.4, chloride 101, CO2 of 30, BUN 32, creatinine 1.09. Troponin less than 0.001. EKG, normal sinus rhythm. Nonspecific T-wave abnormality. Chest x-ray, mild cardiomegaly and pulmonary vascular congestion. Mild pulmonary interstitial edema is suspected. Small left pleural effusion is possible. Bilateral infrahilar haziness can be due to atelectasis or pneumonia. IMPRESSION: 1. Aspiration pneumonia. 2. Chest pain. 3. Coronary artery disease with mild coronary artery disease, on cardiac catheterization in 2019. 4. Severe pulmonary hypertension, status post permanent pacemaker. 5. Hypertension. 6. Hyperlipidemia. 7. Diabetes mellitus. 8. Obstructive sleep apnea, on CPAP. 9. Chronic kidney disease. RECOMMENDATIONS: The management of aspiration pneumonia per primary. The patient has ruled out for myocardial infarction with serial cardiac biomarkers. She had cardiac catheterization in 2019 with only mild coronary artery disease. No further cardiac evaluation is indicated at this time. BNP is low; however, given her severe pulmonary hypertension, would place the patient on IV diuretics while admitted. Continue home cardiac medications. Monitor the patient closely on telemetry. Blood pressure is acceptable. Thank you for this consult. We will continue to follow. Jaz Nava MD ABS/MODL /[id number]
[2019-10-25] MEDS: MORPHINE SULFATE 2 MG/ML SYR 1ML IV PRN ×4 (05:06→20:35)
[2019-10-25] MEDS: ONDANSETRON HCL INJ 2MG/ML 2ML 2 MG/ML VIAL IV PRN ×2 (05:07→12:48)
[2019-10-25] MEDS: THYROID 60 MG TAB PO SCH (05:44)
[2019-10-25 06:34] LABS: BASOPHILS % 0.1 % (0.0-1.0); HEMOGLOBIN 9.9 g/dL (12.0-16.0); LYMPHOCYTES # (AUTO) 0.8 (1.0-3.2); LYMPHOCYTES % 5.4 % (18.0-39.1); MEAN CORPUSCULAR HGB CONC 31.9 g/dL (31-35); MEAN CORPUSCULAR VOLUME 97.2 fL (81-99); MONOCYTES # (AUTO) 0.9 (0.2-0.8); MONOCYTES % 6.7 % (4.4-11.3); NEUTROPHILS # (AUTO) 12.1 (2.1-6.9); PLATELET COUNT 285 x10e3/uL (140-360); RED BLOOD COUNT 3.19 x10e6/uL (3.6-5.1); RED CELL DISTRIBUTION WIDTH 14.9 % (11.7-14.4)
[2019-10-25 06:57] LABS: ANION GAP 11.7 mmol/L (8-16); CALCIUM 9.1 mg/dL (8.4-10.2); CREATININE, SERUM 1.15 mg/dL (0.57-1.11); POTASSIUM 4.7 mmol/L (3.5-5.1)
--- NOTE | 2019-10-25 07:15 | Progress Note ---
DATE: SUBJECTIVE: The patient is a 69-year-old female, who came in yesterday, was found to have aspiration pneumonia. The patient has consult with both Pulmonary and also with Cardiology. The patient is currently still feeling ill, chest pain on the right side, shortness of breath is there. Positive for nausea. No vomiting. No diarrhea. Pain on the right side is being controlled by pain medications. The patient has a history of pulmonary hypertension. OBJECTIVE: VITAL SIGNS: Temperature is 97.5, pulse of 69, respirations of 18, blood pressure is 155/66, pulse oximetry of 96% on 2 L of oxygen. HEENT: Normocephalic and atraumatic. The patient is obese. CVS: S1 and S2 normal. Regular rate and rhythm. Right-sided rhonchi with decreased air entry. ABDOMEN: Nontender, nondistended. EXTREMITIES: No clubbing, no cyanosis. Positive for trace edema. LABORATORY DATA: Today's white count is about same 13,000, hemoglobin of 9.9, hematocrit 31.0 with left shift of 12.1. Chemistries are pending today. Coags are normal. Again, influenza was negative yesterday. MICROBIOLOGY: No growth in urine culture and no growth in blood cultures yesterday. Modified barium swallow has been done. ASSESSMENT: Ms. Nadia Renner with: 1. Aspiration pneumonia. Plan: Continue on Levaquin because of the patient's allergy to multiple medication. 2. History of pulmonary hypertension. Continue on O2 supplementation, albuterol Atrovent treatment. 3. Diabetes with neuropathy, nephropathy. Continue current medications and sliding scale. 4. Hyperlipidemia. 5. Chronic renal failure. 6. Coronary artery disease. The patient has been ruled out for chest pain. For further information, look in the chart. The patient will continue with Levaquin. We will follow up with the barium swallow study. Continue monitoring the patient and awaiting Pulmonary Consult. MD CHERRY WaldropJ/MODL /[id number]
[2019-10-25] MEDS ORDERED: FUROSEMIDE INJ 10 MG/ML 4 ML VIAL IV SCH (09:00)
[2019-10-25] MEDS: SUCRALFATE 1 GM TAB PO SCH ×4 (09:20→22:27)
[2019-10-25] MEDS: NON-FORMULARY MEDICATION (Letrozole 2.5 MG) PO SCH (09:20)
[2019-10-25] MEDS: GABAPENTIN 400 MG CAP PO SCH ×3 (09:21→22:27)
[2019-10-25] MEDS: LOSARTAN POTASSIUM 25 MG TAB PO SCH (09:21)
[2019-10-25] MEDS: PANTOPRAZOLE SOD 40 MG TABEC PO SCH ×2 (09:21→16:36)
[2019-10-25] MEDS: ALLOPURINOL 300 MG TAB PO SCH (09:21)
[2019-10-25] MEDS: CLOPIDOGREL BISULFATE 75 MG TAB PO SCH (09:21)
[2019-10-25] MEDS: RANOLAZINE 500 MG TABSR PO SCH ×2 (09:21→16:36)
[2019-10-25] MEDS: SPIRONOLACTONE 25 MG TAB PO SCH (09:21)
[2019-10-25] MEDS: METOPROLOL TARTRATE 25 MG TAB PO SCH (09:22)
[2019-10-25] MEDS: INSULIN REGULAR, HUMAN 100 UNIT/1 ML 3ML VIAL SQ SCH ×4 (09:33→22:12)
--- NOTE | 2019-10-25 12:16 | Diagnostic Imaging Report ---
EXAM: CHEST 2 VIEWS DATE: 10/25/2019 6:46 AM INDICATION: Aspiration pneumonia COMPARISON: 10/23/2019 IMPRESSION: Left-sided IJ chest port and right-sided pacing device identified in stable position. The trachea is midline. There has been interval improvement in perihilar opacities and vascular congestion. The lungs are symmetrically expanded without evidence for large focal consolidation, pneumothorax, or significant pleural effusion. The cardiomediastinal silhouette is stable in appearance. No acute osseous abnormality is identified. Signed by: Dr. James Joshi MD on 10/25/2019 12:13 PM
--- NOTE | 2019-10-25 12:27 | Progress Note ---
DATE: 10/25/2019 SUBJECTIVE: The patient reports chronic chest pain. She states she is coughing more. OBJECTIVE: VITAL SIGNS: Temperature 98.8 degrees, pulse 64, respiratory rate 21, blood pressure 143/61, oxygen saturation 98% on 2 L nasal cannula. GENERAL: Obese woman, in no acute distress, awake and alert. LUNGS: Clear to auscultation bilaterally. No wheezes or crackles. CARDIOVASCULAR: Normal rate, regular rhythm. No murmur. Normal S1, S2. ABDOMEN: Soft and nontender. EXTREMITIES: No edema. NEUROLOGIC: Nonfocal exam. CARDIAC MEDICATIONS: Metoprolol 125 mg p.o. daily, spironolactone 25 mg p.o. daily, ranolazine 1000 mg p.o. b.i.d., losartan 25 mg p.o. daily, Plavix 75 mg p.o. daily. LABORATORY DATA: WBC 13.86, hemoglobin 9.9, hematocrit 31, platelets 285. Sodium 139, potassium 4.7, chloride 102, CO2 30, BUN 35, creatinine 1.15. TELEMETRY: Personally reviewed, interpreted, revealing normal sinus rhythm. IMPRESSION: 1. Aspiration pneumonia. 2. Chest pain. 3. Coronary artery disease with mild coronary artery disease, on cardiac catheterization in 2019. 4. Status post permanent pacemaker. 5. Hypertension. 6. Hyperlipidemia. 7. Diabetes mellitus. 8. Obstructive sleep apnea, on CPAP. 9. Chronic kidney disease. RECOMMENDATIONS: The management of aspiration pneumonia per primary. The patient has ruled out for myocardial infarction with serial cardiac biomarkers. She had cardiac catheterization in 2019 with only mild coronary artery disease. No further cardiac evaluation is indicated at this time. Continue IV diuretics while admitted. Monitor creatinine. Replete electrolytes. Continue supplemental oxygen. Maintain the patient on telemetry while here. Blood pressure is borderline for her age. If persistently elevated, we will titrate up losartan. Thank you for this consult. We will continue to follow. Jaz Nava MD ABS/MODL /[id number]
--- NOTE | 2019-10-25 16:00 | NUR ---
ST Note: Attempted to see pt for initial session of dysphagia therapy. Pt sleeping. Left written material and contact information. Will f/u later time permitting. Handoff to PURA Hoyt.
[2019-10-25] MEDS: FUROSEMIDE INJ 10 MG/ML 2 ML VIAL IV SCH (16:35)
--- NOTE | 2019-10-25 19:23 | NUR ---
report given to oncoming nurse, walking rounds complete.
[2019-10-25] MEDS: LEVOFLOXACIN 750MG/D5W 150ML IV SCH (20:34)
[2019-10-25] MEDS: INSULIN GLARGINE 100 UNITS/ML VIAL SC SCH (22:11)
[2019-10-26] VITALS: BP 113/56
[2019-10-26] MEDS: ALBUTEROL SULF 0.083% NEB SOLN 3 ML NEB NEB SCH ×5 (00:15→16:15)
[2019-10-26] MEDS: IPRATROPIUM BROMIDE 0.02% 2.5 ML NEB NEB SCH ×5 (00:15→19:10)
[2019-10-26 04:00] VITALS: BP 101/51
[2019-10-26] MEDS: MORPHINE SULFATE 2 MG/ML SYR 1ML IV PRN ×2 (04:23→18:05)
[2019-10-26] MEDS: INSULIN REGULAR, HUMAN 100 UNIT/1 ML 3ML VIAL SQ SCH ×3 (07:30→16:19)
--- NOTE | 2019-10-26 07:40 | NUR ---
PATIENT IS AWAKE, ALERT, AND IN STABLE CONDITION WITH NO S/S RESPIRATORY DISTRESS. PATIENT C/O HEADACHE 02 APPLIED AT 2L NC. CALL LIGHT IS WITHIN REACH, PATIENT INSTRUCTED TO CALL FOR ASSISTANCE NEEDED.
[2019-10-26 07:53] VITALS: BP 157/72
[2019-10-26] MEDS: THYROID 60 MG TAB PO SCH (08:03)
[2019-10-26 08:45] VITALS: BP 157/72
[2019-10-26] MEDS: GABAPENTIN 400 MG CAP PO SCH ×2 (08:50→15:34)
[2019-10-26] MEDS: RANOLAZINE 500 MG TABSR PO SCH ×2 (08:50→17:59)
[2019-10-26] MEDS: METOPROLOL TARTRATE 25 MG TAB PO SCH (08:50)
[2019-10-26] MEDS: ALLOPURINOL 300 MG TAB PO SCH (08:50)
[2019-10-26] MEDS: PANTOPRAZOLE SOD 40 MG TABEC PO SCH ×2 (08:50→17:58)
[2019-10-26] MEDS: NON-FORMULARY MEDICATION (Letrozole 2.5 MG) PO SCH (08:50)
[2019-10-26] MEDS: CLOPIDOGREL BISULFATE 75 MG TAB PO SCH (08:50)
[2019-10-26] MEDS: SPIRONOLACTONE 25 MG TAB PO SCH (08:50)
[2019-10-26] MEDS: LOSARTAN POTASSIUM 25 MG TAB PO SCH (08:50)
[2019-10-26] MEDS: SUCRALFATE 1 GM TAB PO SCH ×3 (08:51→17:58)
[2019-10-26] MEDS: FUROSEMIDE INJ 10 MG/ML 2 ML VIAL IV SCH (08:51)
[2019-10-26] MEDS: ACETAMINOPHEN 325 MG TAB PO PRN (08:52)
--- NOTE | 2019-10-26 11:10 | NUR ---
PATIENT TRANSFER TO MED SURG2 ROOM 213- REPORT GIVEN TO RN. PATIENT IN STABLE CONDITION WITH NO S/S RESPIRATORY DISTRESS. NO PAIN VOICED.
--- NOTE | 2019-10-26 11:20 | NUR ---
Received report from PURA Hodges. Patient lying in bed with eyes open. Respiration even and unlabored without SOB. Call light in reach.
[2019-10-26 11:50] VITALS: BP 168/81
--- NOTE | 2019-10-26 12:38 | NUR ---
Nutrition Screen Note RD Recommendation for Physician: -Continue current diet per MD, texture per speech. Plan of Care: RD following, monitoring for tolerance and adequacy Nutrition reason for involvement: (Diagnosis-aspiration PNA) Primary Diagnose(s): Aspiration PNA PMH: DM, HTN Ht: 65 in Wt:270 lb BMI: 44.9 kg/m2 IBW:[address] Assessment: 10/25: 69 YOF admitted for aspiration PNA with PMH listed above. The pt was seen resting in bed. Pt reports an okay appetite, denied N/V. She stated she has not had a BM since Thursday. LBM: not recorded. She denied weight loss. Pt had MBS on 10/23, PHOTOGRAPHIC PRESS SCREWMAKER recommended regular diet with thin liquids. Speech is still working with the pt for dysphasia therapy. She did state carrots cause her to have diarrhea, will document carrots as a dislike in HT. Per HT, the pt is allergic to aspartame and non dairy creamer. Pt appears well-nourished. Will continue to monitor. Current Diet: 1800 ADA diet Malnutrition Evaluation (10/25) The patient does not meet criteria for a specified degree of malnutrition at this time. Will re-evaluate at follow-up as appropriate. Diet Education Needs Assessment: Diet education not indicated at current time. Diet Adequacy: Meeting calorie needs, Meeting protein needs Nutrition Care Level: low Signed: Nelli Real, SANAM, LD
--- NOTE | 2019-10-26 13:50 | NUR ---
ST Note: Attempted to see pt for initial session of dysphagia therapy. Pt sleeping, did not wake to verbal stimuli. Will f/u later time permitting.
--- NOTE | 2019-10-26 15:42 | NUR ---
ST Note: Pt still sleeping. Will return tomorrow 10/27/19.
[2019-10-26] MEDS ORDERED: METOPROLOL TARTRATE 25 MG TAB PO SCH (18:00)
--- NOTE | 2019-10-26 18:50 | NUR ---
Discharge education given. Verbalized understanding. Prescription home medication given. Awaiting for black pickler.
--- NOTE | 2019-10-26 19:32 | NUR ---
Patient is to discharge home tonight. Awaiting for the spouse for hop picker.
--- NOTE | 2019-10-26 19:40 | NUR ---
Report given to shift engineer. Patient is lying in bed with eyes open. Awaiting for spouse.
--- NOTE | 2019-10-26 20:19 | Progress Note ---
DATE: SUBJECTIVE: This is a 69-year-old female, who came in with aspiration pneumonia. The patient is feeling better. Repeat chest x-ray shows no consolidation. No focal pneumonia at this time. Currently, patient is feeling better. No chest pain. No shortness of breath. Baseline shortness of breath. OBJECTIVE: VITAL SIGNS: Temperature is 96.7, pulse 78, respirations of 18, blood pressure is 168/81, pulse oximetry of 98%. HEENT: Normocephalic and atraumatic. Pupils are reactive to light and accommodation. The patient has O2 by nasal cannula. CVS: S1 and S2 normal. Regular rate and rhythm. LUNGS: Good air entry into lung velásquez. ABDOMEN: Nontender, nondistended. EXTREMITIES: No clubbing, no cyanosis, no edema. LABORATORY VALUES: White count remains at 13,000. Chemistries; sodium 139, potassium of 4.7. X-ray shows no consolidation, no focal pneumonia and improvement of the perihilar opacities and basilar congestion. ASSESSMENT: Ms. Nadia Renner with possible aspiration pneumonia. PLAN: Send her home on Levaquin 500 mg. Continue albuterol and Atrovent treatment at home. Continue home medication. The patient will follow up with me in about a week's time. Further recommendation per clinical course. MD JEISON Waldrop/JESSICAL /[id number]
--- NOTE | 2019-10-26 20:19 | Progress Note ---
DATE: 10/26/2019 Cardiology Progress Note SUBJECTIVE: The patient reports chest pain and shortness of breath. She states she is coughing more today. OBJECTIVE: VITAL SIGNS: Temperature 96.7 degrees, pulse 74, respiratory rate 18, blood pressure 168/81, and oxygen saturation 99% on 2 L nasal cannula. GENERAL: Obese woman, in no acute distress. Awake and alert. LUNGS: Clear to auscultation bilaterally. No wheezes or crackles. CARDIOVASCULAR: Normal rate. Regular rhythm. No murmur. Normal S1 and S2. ABDOMEN: Soft and nontender. EXTREMITIES: No edema. NEURO: Nonfocal exam. CARDIAC MEDICATIONS: Furosemide 40 mg IV daily, spironolactone 25 mg p.o. daily, ranolazine 1000 mg p.o. b.i.d., metoprolol tartrate 25 mg p.o. daily, losartan 25 mg p.o. daily, and Plavix 75 mg p.o. daily. LABORATORY DATA: None today. Telemetry was personally reviewed and interpreted, revealing atrial paced rhythm. IMPRESSION: 1. Aspiration pneumonia. 2. Chest pain. 3. Coronary artery disease with mild coronary artery disease on cardiac catheterization in 2019. 4. Status post permanent pacemaker. 5. Hypertension. 6. Hyperlipidemia. 7. Diabetes mellitus. 8. Obstructive sleep apnea, on CPAP. 9. Chronic kidney disease. RECOMMENDATIONS: Management of aspiration pneumonia per primary. The patient ruled out for myocardial infarction with serial cardiac biomarkers. She had cardiac catheterization in 2019 with only mild coronary artery disease. No further cardiac evaluation is indicated at this time. Continue IV diuretics while admitted. Monitor creatinine. Replete electrolytes. Continue supplemental oxygen. Maintain the patient on telemetry while admitted. Blood pressure is elevated, we will increase metoprolol. Thank you for this consult. We will continue to follow. Jaz Nava MD ABS/MODL /[id number]
--- NOTE | 2019-10-27 10:22 | Diagnostic Imaging Report ---
PROCEDURE: X-RAY MODIFIED BARIUM SWALLOW COMPARISON: None. INDICATION: Aspiration Radiation Details: Fluoroscopy time: 2.2 minutes Cumulative dose: 16.0 mGy DISCUSSION: Fluoroscopic examination was performed in conjunction with speech pathology during swallowing a variety of thin and thick liquid consistencies. Provided images demonstrate laryngeal penetration and aspiration. CONCLUSION: Modified barium swallow demonstrating laryngeal penetration and aspiration. Please refer to the speech pathology report for further details. Signed by: Soto Bacon MD on 10/27/2019 10:18 AM
== END 2019-10-26 19:07 | disposition home or self-care (01) | DRG 178 ==
LOC: ER 18:12 → ERHOLD 20:51 → MED/SURG3 10-24 10:32 → MED/SURG2 10-26 11:14
PROVIDERS: ADMIT Family Medicine; ATTEND Family Medicine
DX: J69.0 Pneumonitis due to inhalation of food and vomit (principal); Z68.41 Body mass index [BMI] 40.0-44.9, adult; I27.20 Pulmonary hypertension, unspecified; E66.01 Morbid (severe) obesity due to excess calories; E11.21 Type 2 diabetes mellitus with diabetic nephropathy; E11.40 Type 2 diabetes mellitus with diabetic neuropathy, unspecified; N18.2 Chronic kidney disease, stage 2 (mild); E03.9 Hypothyroidism, unspecified; E11.42 Type 2 diabetes mellitus with diabetic polyneuropathy; K21.9 Gastro-esophageal reflux disease without esophagitis; Z85.3 Personal history of malignant neoplasm of breast; Z85.850 Personal history of malignant neoplasm of thyroid; Z95.810 Presence of automatic (implantable) cardiac defibrillator; Z90.12 Acquired absence of left breast and nipple; Z88.0 Allergy status to penicillin; Z88.7 Allergy status to serum and vaccine; Z88.8 Allergy status to other drugs, medicaments and biological substances; Z88.1 Allergy status to other antibiotic agents; Z91.041 Radiographic dye allergy status; R09.02 Hypoxemia; I25.10 Atherosclerotic heart disease of native coronary artery without angina pectoris; Z95.5 Presence of coronary angioplasty implant and graft; E78.5 Hyperlipidemia, unspecified; E11.22 Type 2 diabetes mellitus with diabetic chronic kidney disease; G47.33 Obstructive sleep apnea (adult) (pediatric); Z95.0 Presence of cardiac pacemaker; Z79.4 Long term (current) use of insulin
CPT/HCPCS: 36415; 71045; 71046; 74230; 80048; 80053; 81001; 82550; 82553; 82948; 83605; 83880; 84484; 85025; 85610; 85730; 87040; 87086; 87400; 93005; 94640; J1642; J1817; J1940; J1956; J2270; J2405; J2930; J7030; J7050

== ENCOUNTER 2020-03-04 03:57 | Inpatient (IN) | payer MEDICARE, OTHER ==
[~2020-03-04] VITALS: Ht 167.6 cm; Wt 117.9 kg
[~2020-03-04 03:57] MED LIST changes: +MIDODRINE HCL2.5 MG PO
[2020-03-04 04:59] LABS: BASOPHILS % 0.4 % (0.0-1.0); EOSINOPHILS % 0.2 % (0.0-6.0); HEMATOCRIT 37.8 % (34.2-44.1); HEMOGLOBIN 12.5 g/dL (12.0-16.0); LYMPHOCYTES # (AUTO) 1.9 (1.0-3.2); LYMPHOCYTES % 22.7 % (18.0-39.1); MEAN CORPUSCULAR HEMOGLOBIN 32.1 pg (28-32); MEAN CORPUSCULAR HGB CONC 33.1 g/dL (31-35); MEAN CORPUSCULAR VOLUME 97.2 fL (81-99); MONOCYTES % 12.3 % (4.4-11.3); NEUTROPHILS # (AUTO) 5.2 (2.1-6.9); NEUTROPHILS % 63.9 % (38.7-80.0); PLATELET COUNT 278 x10e3/uL (140-360); RED BLOOD COUNT 3.89 x10e6/uL (3.6-5.1); RED CELL DISTRIBUTION WIDTH 14.6 % (11.7-14.4)
[2020-03-04 05:30] LABS: BILIRUBIN,URINE 1+ (NEGATIVE); CLARITY,URINE CLEAR (CLEAR); COLOR,URINE YELLOW (YELLOW); EPITHELIAL CELLS,URINE FEW /LPF; KETONES,URINE NEGATIVE (NEGATIVE); LEUKOCYTE ESTERASE ,URINE NEGATIVE (NEGATIVE); MUCUS,URINE FEW (RARE); NITRITE,URINE NEGATIVE (NEGATIVE); PROTEIN,URINE DIPSTICK NEGATIVE (NEGATIVE); RBC,URINE 0-5 /HPF (0-5); URINE UROBILINOGEN 0.2 mg/dL (0.2 - 1); WBC,URINE (MAN) 0-5 /HPF (0-5)
[2020-03-04] MEDS ORDERED: ONDANSETRON HCL INJ 2MG/ML 2ML 2 MG/ML VIAL IV STA (05:30)
[2020-03-04] MEDS ORDERED: SODIUM CHLORIDE 0.9% 1000ML 1,000 ML IV ONE ×2 (05:30→05:45)
[2020-03-04] MEDS ORDERED: MORPHINE SULFATE 2 MG/ML SYR 1ML IV STA (05:30)
[2020-03-04 05:31] LABS: ALBUMIN 3.7 g/dL (3.5-5.0); ANION GAP 21.4 mmol/L (8-16); CALCIUM 9.3 mg/dL (8.4-10.2); CREATININE, SERUM 1.75 mg/dL (0.57-1.11); POTASSIUM 3.4 mmol/L (3.5-5.1)
--- NOTE | 2020-03-04 05:38 | Emergency Department Note ---
History of Present Illnes History of Present Illness Chief Complaint: Abdominal Complaints History of Present Illness This is a 69 year old female WITH C/O LEFT ABD PAIN SINCE THURSDAY, ALSO REPORTS N/V/D WELL, STATES CAN'T KEEP ANYTHING DOWN. Historian: Patient Arrival Mode: Car Onset (how long ago): day(s) (3) Location: LEFT ABDOMEN Quality: PAIN WITH N/V/D Radiation: Reports non-radiation Severity: moderate Onset quality: gradual Duration (how long): day(s) (3) Timing of current episode: constant Progression: unchanged Chronicity: new Context: Denies recent illness, Denies recent surgery Relieving factors: none Exacerbating factors: none Associated symptoms: Reports nausea/vomiting, Reports other (DIARRHEA) Treatments prior to arrival: none Past Medical/Family History Physician Review I have reviewed the patient's past medical and family history. Any updates have been documented here. Past Medical History Recent Fever: No Clinical Suspicion of Infectio: No New/Unexplained Change in Ment: No Past Medical History: Hypertension, Diabetes, CHF, Hypothyroidism, Cancer, GERD Other Medical History: KIDNEY MALROTATION BREAST CA THYROID CA GOUT NEUROPATHY FIBROMYAGLIA REYNAUDS GASTRITIS IBS PULMONARY HYPERTENSION Past Surgical History: Cholecysctectomy, Appendectomy, Hysterectomy, Pacer/AICD, Mastectomy Other Surgery: PARTIAL L MASTECTOMY WITH LYMPH NODES 03/2017 SPINAL CORD STIMULATOR LEFT LUMPECTOMY LT BREAST THYROIDECTOMY HERNIA REPAIR BLADDER SUSPENSION R KIDNEY SURGERY L PORTACATH BACK SURGERY X2 PACEMAKER PLACED 08/24/2019 Social History Smoking Cessation: Former smoker Alcohol Use: None Any Illegal Drug Use: No Family History Family history of heart diseas: Yes Other family history HTN,DM Other Last Tetanus: UNK Review of Systems Review of Systems Constitutional: Reports no symptoms EENTM: Reports no symptoms Cardiovascular: Reports no symptoms Respiratory: Reports no symptoms Gastrointestinal: Reports as per HPI Genitourinary: Reports no symptoms Musculoskeletal: Reports no symptoms Integumentary: Reports no symptoms Neurological: Reports no symptoms Psychological: Reports no symptoms Endocrine: Reports no symptoms Hematological/Lymphatic: Reports no symptoms Physical Exam Related Data Allergies: Coded Allergies: Iodinated Contrast Media (Verified Allergy, Intermediate, ITCHING, 11/30/17) amitriptyline (Verified Allergy, Intermediate, MUSCLE TREMORS, 08/25/17) amoxicillin (Verified Allergy, Intermediate, ITCHING, 08/25/17) aspartame (Verified Allergy, Intermediate, HEADACHES AND VOMITING, 08/25/17) aspirin (Verified Allergy, Intermediate, GASTRITIS, WHEEZING, DIAPHRAGMATIC SPASMS, THROAT CLOSES UP, 08/25/17) atorvastatin (Verified Allergy, Intermediate, MUSCLE PAIN WEAKNESS AND DARK URINE, 08/25/17) baclofen (Verified Allergy, Intermediate, MUSCLE TREMORS AND JERKING, 08/25/17) betamethasone (Verified Allergy, Intermediate, TACHYCARDIA AND HTN, 08/25/17) cephalexin (Verified Allergy, Intermediate, ITCHING AND VOMITING, 08/25/17) clavulanic acid (Verified Allergy, Intermediate, ITCHING, 08/25/17) ezetimibe (Verified Allergy, Intermediate, MUSCLE WEAKNESS, PAIN, WHEEZING, 08/25/17) gemfibrozil (Verified Allergy, Intermediate, MUSCLE PAIN, 08/25/17) hydrocodone (Verified Allergy, Intermediate, ITCHING, 08/25/17) metoclopramide (Verified Allergy, Intermediate, MUSCLE TREMORS, 08/25/17) oxycodone (Verified Allergy, Intermediate, VOMITING, 08/25/17) povidone-iodine (Verified Allergy, Intermediate, RASH AND ITCHING, 08/25/17) pregabalin (Verified Allergy, Intermediate, MUSCLE TREMORS AND JERKING, 08/25/17) simvastatin (Verified Allergy, Intermediate, MUSCLE WEAKNESS, PAIN, WHEEZING, ELEVATED BLOOD SUGARS, 08/25/17) tramadol (Verified Allergy, Intermediate, RASH, ITCHING, HEADACHES, IRREGULAR HEART BEAT, 08/25/17) tetracycline (Verified Allergy, Mild, ITCHING, 08/25/17) Influenza Virus Vaccines (Verified Allergy, Unknown, RASH, 10/23/19) NSAIDS (Non-Steroidal Anti-Inflamma (Verified Allergy, Unknown, GASTRITIS, WHEEZING, 11/30/17) Penicillins (Verified Allergy, Unknown, ITCH, 11/11/17) acetaminophen (Verified Allergy, Unknown, 03/04/20) erythromycin base (Verified Allergy, Unknown, ITCH, 10/23/19) fluticasone (Verified Allergy, Unknown, NEUROLOGICAL PROB, 11/30/17) lisinopril (Verified Allergy, Unknown, TACHY, 11/11/17) methocarbamol (Verified Allergy, Unknown, 03/04/20) metolazone (Verified Allergy, Unknown, 08/25/17) propantheline (Verified Allergy, Unknown, 11/30/17) salmeterol (Verified Allergy, Unknown, NEUROLOGICAL PROB, 11/30/17) soap (Verified Allergy, Unknown, 03/04/20) Uncoded Allergies: ADVAIR (Allergy, Unknown, 03/04/20) AMITRPTYLINE (Allergy, Unknown, 03/04/20) IV CONTRAST (Allergy, Unknown, 03/04/20) MYACINS (Allergy, Unknown, 03/04/20) MYCINS (Allergy, Unknown, ITCH, 11/11/17) NSAIDS (Allergy, Unknown, 03/04/20) PENICILLIN (Allergy, Unknown, 03/04/20) TETANUS (Allergy, Unknown, 03/04/20) Triage Vital Signs Vital Signs Date Time Temp Pulse Resp B/P (MAP) Pulse Ox O2 Delivery O2 Flow Rate FiO2 03/04/20 04:12 98.1 83 20 167/76 99 Room Air Physical Exam CONSTITUTIONAL Constitutional: Present well-developed, Present well-nourished, Present obese; Absent distressed HENT HENT: Present normocephalic, Present atraumatic, Present oropharynx clear/moist, Present nose normal HENT L/R: Present left ext ear normal, Present right ext ear normal EYES Eyes: Reports PERRL, Reports conjunctivae normal NECK Neck: Present ROM normal PULMONARY Pulmonary: Present effort normal, Present breath sounds normal CARDIOVASCULAR Cardiovascular: Present regular rhythm, Present heart sounds normal, Present capillary refill normal, Present normal rate GASTROINTESTINAL Abdominal: Present soft, Present bowel sounds normal, Present tender (MILD LEFT ABD TENDERNESS) GENITOURINARY Genitourinary: Present exam deferred SKIN Skin: Present warm, Present dry MUSCULOSKELETAL Musculoskeletal: Present ROM normal NEUROLOGICAL Neurological: Present alert, Present oriented x 3, Present no gross motor or sensory deficits PSYCHOLOGICAL Psychological: Present mood/affect normal, Present judgement normal Results Laboratory Result Diagram: 03/04/20 0455 Laboratory Laboratory Tests Test 03/04/20 05:25 03/04/20 04:55 03/04/20 04:42 Amylase Level 21 U/L (25-125) Lipase 8 U/L (8-78) White Blood Count 8.15 x10e3/uL (4.8-10.8) Red Blood Count 3.89 x10e6/uL (3.6-5.1) Hemoglobin 12.5 g/dL (12.0-16.0) Hematocrit 37.8 % (34.2-44.1) Mean Corpuscular Volume 97.2 fL (81-99) Mean Corpuscular Hemoglobin 32.1 pg (28-32) Mean Corpuscular Hemoglobin Concent 33.1 g/dL (31-35) Red Cell Distribution Width 14.6 % (11.7-14.4) Platelet Count 278 x10e3/uL (140-360) Neutrophils (%) (Auto) 63.9 % (38.7-80.0) Lymphocytes (%) (Auto) 22.7 % (18.0-39.1) Monocytes (%) (Auto) 12.3 % (4.4-11.3) Eosinophils (%) (Auto) 0.2 % (0.0-6.0) Basophils (%) (Auto) 0.4 % (0.0-1.0) Neutrophils # (Auto) 5.2 (2.1-6.9) Lymphocytes # (Auto) 1.9 (1.0-3.2) Monocytes # (Auto) 1.0 (0.2-0.8) Eosinophils # (Auto) 0.0 (0.0-0.4) Basophils # (Auto) 0.0 (0.0-0.1) Absolute Immature Granulocyte (auto 0.04 x10e3/uL (0-0.1) Urine Color Yellow (YELLOW) Urine Clarity Clear (CLEAR) Urine pH 5 (5 - 7) Urine Specific [place] 1.015 (1.010-1.025) Urine Protein Negative (NEGATIVE) Urine Glucose (UA) Negative (NEGATIVE) Urine Ketones Negative (NEGATIVE) Urine Blood Negative (NEGATIVE) Urine Nitrite Negative (NEGATIVE) Urine Bilirubin 1+ (NEGATIVE) Urine Urobilinogen 0.2 mg/dL (0.2 - 1) Urine Leukocyte Esterase Negative (NEGATIVE) Urine RBC 0-5 /HPF (0-5) Urine WBC 0-5 /HPF (0-5) Urine Epithelial Cells Few /LPF (NONE) Urine Bacteria None /HPF (NONE) Urine Mucus Few (RARE) Sodium Level 138 mmol/L (136-145) Potassium Level 3.4 mmol/L (3.5-5.1) Chloride Level 102 mmol/L (98-107) Carbon Dioxide Level 18 mmol/L (22-29) Anion Gap 21.4 mmol/L (8-16) Blood Urea Nitrogen 23 mg/dL (7-26) Creatinine 1.75 mg/dL (0.57-1.11) Estimat Glomerular Filtration Rate 29 ML/MIN (60-) BUN/Creatinine Ratio 13 (6-25) Glucose Level 129 mg/dL (74-118) Calcium Level 9.3 mg/dL (8.4-10.2) Total Bilirubin 1.1 mg/dL (0.2-1.2) Aspartate Amino Transf (AST/SGOT) 24 IU/L (5-34) Alanine Aminotransferase (ALT/SGPT) 21 IU/L (0-55) Alkaline Phosphatase 100 IU/L (40-150) Total Protein 7.4 g/dL (6.5-8.1) Albumin 3.7 g/dL (3.5-5.0) Globulin 3.7 g/dL (2.3-3.5) Albumin/Globulin Ratio 1.0 (0.8-2.0) Laboratory Tests Test 03/04/20 04:55 03/04/20 04:42 White Blood Count 8.15 x10e3/uL (4.8-10.8) Red Blood Count 3.89 x10e6/uL (3.6-5.1) Hemoglobin 12.5 g/dL (12.0-16.0) Hematocrit 37.8 % (34.2-44.1) Mean Corpuscular Volume 97.2 fL (81-99) Mean Corpuscular Hemoglobin 32.1 pg (28-32) Mean Corpuscular Hemoglobin Concent 33.1 g/dL (31-35) Red Cell Distribution Width 14.6 % (11.7-14.4) Platelet Count 278 x10e3/uL (140-360) Neutrophils (%) (Auto) 63.9 % (38.7-80.0) Lymphocytes (%) (Auto) 22.7 % (18.0-39.1) Monocytes (%) (Auto) 12.3 % (4.4-11.3) Eosinophils (%) (Auto) 0.2 % (0.0-6.0) Basophils (%) (Auto) 0.4 % (0.0-1.0) Neutrophils # (Auto) 5.2 (2.1-6.9) Lymphocytes # (Auto) 1.9 (1.0-3.2) Monocytes # (Auto) 1.0 (0.2-0.8) Eosinophils # (Auto) 0.0 (0.0-0.4) Basophils # (Auto) 0.0 (0.0-0.1) Absolute Immature Granulocyte (auto 0.04 x10e3/uL (0-0.1) Urine Color Yellow (YELLOW) Urine Clarity Clear (CLEAR) Urine pH 5 (5 - 7) Urine Specific [place] 1.015 (1.010-1.025) Urine Protein Negative (NEGATIVE) Urine Glucose (UA) Negative (NEGATIVE) Urine Ketones Negative (NEGATIVE) Urine Blood Negative (NEGATIVE) Urine Nitrite Negative (NEGATIVE) Urine Bilirubin 1+ (NEGATIVE) Urine Urobilinogen 0.2 mg/dL (0.2 - 1) Urine Leukocyte Esterase Negative (NEGATIVE) Urine RBC 0-5 /HPF (0-5) Urine WBC 0-5 /HPF (0-5) Urine Epithelial Cells Few /LPF (NONE) Urine Bacteria None /HPF (NONE) Urine Mucus Few (RARE) Imaging Imaging results reviewed: Yes Impressions IMPRESSION: 1. No acute abdominopelvic abnormalities. No bowel dilation or evidence of obstruction. 2. Hepatic steatosis. 3. Moderate dilation of the common bile duct, likely reflecting postcholecystectomy status. 4. 1.0 cm indeterminate lesion in the left kidney which does not measure simple fluid. Recommend evaluation with renal ultrasound on a nonemergent basis. 5. Colonic diverticulosis, worse in the descending and sigmoid colon, without diverticulitis. Signed by: Dr. Alireza Steiner M.D. on 03/04/2020 6:35 AM Assessment & Plan Medical Decision Making MDM PT WITH LEFT ABD PAIN WITH N/V/D CBC, CMP, AMYLASE, LIPASE, UA, CT ABD/PELVIS ORDERED TO EVAL FOR UTI, COLITIS, DIVERTICULITIS, PANCREATITIS, SBO, ELECTROLYTE ABNORMALITY. MORPHINE 2 MG IV ORDERED ZOFRAN 4 MG IV ORDERED NS 100 CC PER HOUR IV ORDERED I SPOKE WITH DR WILLETT COVERING FOR DR RODRIGUEZ, ADMIT TO OBS, Assessment & Plan Final Impression: (1) Abdominal pain (2) Vomiting (3) Diarrhea (4) Dehydration Depart Disposition: ADMITTED Last Vital Signs Date Time Temp Pulse Resp B/P (MAP) Pulse Ox O2 Delivery O2 Flow Rate FiO2 03/04/20 04:12 98.1 83 20 167/76 99 Room Air Home Meds Reported Medications Midodrine Hcl (MIDODRINE HCL) 2.5 Mg Tablet, 2.5 MG PO TID, TAB 10/23/19 Fluticasone/Vilanterol (Breo Ellipta 100-25 Mcg INH) 1 Each Blst.w.dev, 1 INH INH ACB 09/04/19 Insulin Lispro (HUMALOG) 100 Unit/1 Ml Cartridge, UNITS SQ TIDWM PRN for BLOOD SUGAR BS 160-179 10 UNITS BS >179 15UNITS 04/23/19 Ranolazine (RANEXA) 500 Mg Tabsr, 1000 MG PO BID 04/23/19 Chlorzoxazone (CHLORZOXAZONE) 500 Mg Tablet, 500 MG PO BID 04/23/19 Trazodone Hcl (TRAZODONE HCL) 100 Mg Tablet, 150 MG PO HS PRN for SLEEP 04/23/19 Clopidogrel Bisulfate (CLOPIDOGREL) 75 Mg Tablet, 75 MG PO DAILY 04/23/19 Losartan Potassium (LOSARTAN POTASSIUM) 25 Mg Tablet, 25 MG PO DAILY 04/23/19 Sucralfate (SUCRALFATE) 1 Gm Tablet, 1 GM PO ACHS 04/23/19 Furosemide (FUROSEMIDE) 20 Mg Tablet, 40 MG PO DAILY 04/23/19 Gabapentin (GABAPENTIN) 400 Mg Capsule, 1200 MG PO TID 04/23/19 Thyroid,Pork (ARMOUR THYROID) 120 Mg Tablet, 210 MG PO DAILY PATIENT HAS THREE BOTLES OF THYROID PAYROLL CONSULTANT 1. 120MG DOSE 2. 30 MG DOSE 3. 60 MG DOSE 04/23/19 Allopurinol (ALLOPURINOL) 300 Mg Tablet, 300 MG PO DAILY, #30 TAB 12/22/17 Insulin Glargine (LANTUS 3ML PEN) 100 Units/1 Ml Inj, 60 UNITS SC HS 12/22/17 Pantoprazole Sodium* (PROTONIX) 40 Mg Tablet.dr, 40 MG PO BID, TAB 12/22/17 Letrozole (LETROZOLE) 2.5 Mg Tablet, 2.5 MG PO DAILY 12/01/17 Promethazine Hcl (PROMETHAZINE HCL) 25 Mg Tablet, 25 MG PO Q4HR PRN for NAUSEA, TAB 10/14/17 Metoprolol Tartrate (METOPROLOL TARTRATE) 25 Mg Tablet, 25 MG PO DAILY, TAB 10/14/17 Temazepam (TEMAZEPAM) 30 Mg Capsule, 30 MG PO HS PRN for SEDATION 10/02/17 Lavender Oil (LAVENDER OIL) 30 Ml Oil, 30 ML PO DAILY 08/25/17 Diphenoxylate Hcl/Atropine (LOMOTIL TABLET) 1 Each Tablet, 1 TAB PO Q6H PRN for DIARRHEA 08/25/17 Diphenhydramine Hcl (BENADRYL) 25 Mg Capsule, 50 MG PO Q4HR PRN for ALLERGY for 30 Days, #100 08/25/17 Mirabegron (MYRBETRIQ) 50 Mg Tab.er.24h, 50 MG PO DAILY 08/25/17 Tizanidine Hcl (TIZANIDINE HCL) 4 Mg Tablet, 4 MG PO DAILY PRN for MUSCLE SPASMS, TAB 08/25/17 Colchicine (COLCRYS) 0.6 Mg Tablet, 0.6 MG PO DAILY PRN for .JOINT PAIN, #30 TAB 08/25/17 Nitroglycerin (NITROGLYCERIN) 0.4 Mg Tab.subl, 0.4 MG SL Q5MIN PRN for CHEST PAIN, TAB 08/25/17 Spironolactone (SPIRONOLACTONE) 25 Mg Tablet, 25 MG PO DAILY, #60 TAB 08/25/17 NEFTALY MONROY MD Mar 04, 2020 05:38
[2020-03-04] MEDS ORDERED: SODIUM CHLORIDE 0.9% 1000ML 1,000 ML ONE (05:40)
[2020-03-04 06:08] LABS: AMYLASE 21 U/L (25-125); LIPASE 8 U/L (8-78)
--- NOTE | 2020-03-04 06:38 | Diagnostic Imaging Report ---
EXAMINATION: CT of the abdomen and pelvis without contrast. TECHNIQUE: Spiral CT images of the abdomen and pelvis were performed from the lung bases to the lesser trochanters. No intravenous contrast was given due to history of iodine allergy. Dilute Gastrografin was given as oral contrast. Coronal and sagittal reformatted images were obtained. COMPARISON: None. CLINICAL HISTORY:Nausea, vomiting, diarrhea DISCUSSION: ABSENCE OF INTRAVENOUS CONTRAST DECREASES SENSITIVITY FOR DETECTION OF FOCAL LESIONS AND VASCULAR PATHOLOGY. ABDOMEN/PELVIS: LOWER THORAX: Distal portion of cardiac wires noted in the right atrium and right ventricle. Atherosclerotic calcification of the coronary arteries. Linear opacities in bilateral lower lobes, likely reflect subsegmental atelectasis or scarring. Mild left posterior basal pleural thickening. HEPATOBILIARY: Decreased attenuation of the hepatic parenchyma, predominantly in the right lobe, consistent with steatosis. No focal lesions. No intrahepatic biliary ductal dilation. The common bile duct is moderately dilated, measuring 1.5 cm at the rasta hepatis. No radiopaque intraluminal filling defects. GALLBLADDER: Cholecystectomy clips. SPLEEN: No splenomegaly. PANCREAS: No focal masses or ductal dilatation. Fatty replacement of the pancreas. ADRENALS: No adrenal nodules. KIDNEYS/URETERS: No renal or ureteral calculi. No hydronephrosis or obstruction. Mostly exophytic 1.0 cm fluid density simple cyst in the right superior pole (series 2, image 36). 1.0 cm mostly exophytic fluid density simple cyst in the left superior pole (series 2, image 30). 1.0 cm partially exophytic lesion in the left anterior interpolar region (series 2, image 35), which does not measure simple fluid No other contour abnormalities. PELVIC ORGANS/BLADDER: Bladder is unremarkable. Uterus is absent. Pelvic phleboliths. No adnexal masses. PERITONEUM/RETROPERITONEUM: No free air or fluid. LYMPH NODES: No intra-abdominal,retroperitoneal, pelvic or inguinal lymphadenopathy. VESSELS: Atherosclerotic calcification of the distal abdominal aorta and proximal iliac vessels. GI TRACT: Contrast is noted in the stomach, small bowel and ascending colon. No bowel dilation or evidence of obstruction. No pericolonic inflammatory changes. Extensive colonic diverticulosis, predominantly involving the descending and sigmoid colon, without diverticulitis. Stomach is grossly unremarkable. BONES AND SOFT TISSUES: No aggressive lytic or suspicious focal sclerotic lesions. Generalized osteopenia. Marked multilevel degenerated discs in the lumbosacral spine, with fusion of, L4 and L5 and marked intervertebral disc space narrowing at L1-L2 and L2-L3. This shape curvature of the thoracolumbar spine. Marked diastases of the recti muscles. IMPRESSION: 1. No acute abdominopelvic abnormalities. No bowel dilation or evidence of obstruction. 2. Hepatic steatosis. 3. Moderate dilation of the common bile duct, likely reflecting postcholecystectomy status. 4. 1.0 cm indeterminate lesion in the left kidney which does not measure simple fluid. Recommend evaluation with renal ultrasound on a nonemergent basis. 5. Colonic diverticulosis, worse in the descending and sigmoid colon, without diverticulitis. Signed by: Dr. Alireza Steiner M.D. on 03/04/2020 6:35 AM
[2020-03-04] MEDS ORDERED: METRONIDAZOLE 500MG/NS 100ML 100 ML IV SCH (07:00)
[2020-03-04] MEDS ORDERED: DEXTROSE 50% SYRINGE 50 ML IV PRN (07:15)
[2020-03-04] MEDS: INSULIN REGULAR, HUMAN 100 UNIT/1 ML 3ML VIAL SQ SCH ×4 (09:17→21:19)
[2020-03-04] MEDS: ONDANSETRON HCL INJ 2MG/ML 2ML 2 MG/ML VIAL IV PRN ×4 (09:18→21:05)
[2020-03-04] MEDS: MORPHINE SULFATE INJ 4 MG/ML INJ 1ML IV PRN ×4 (09:18→21:05)
--- NOTE | 2020-03-04 11:00 | NUR ---
Patient arrived to the floor from the ER. She is awake alert and oriented x3. She was able to transfer herself from the stretcher to the bed independently. The patient was oriented to the room and how to use the call light. She denies needing anything at this time, call light in reach.
[2020-03-04 13:37] VITALS: BP 125/56
[2020-03-04] MEDS ORDERED: COLCHICINE 0.6 MG TAB PO PRN (14:00)
[2020-03-04] MEDS ORDERED: DIPHENOXYLATE/ATROPINE TAB PO PRN (14:00)
[2020-03-04] MEDS: METRONIDAZOLE 500MG/NS 100ML 100 ML IV SCH ×2 (15:35→21:18)
[2020-03-04 16:01] VITALS: BP 123/57
[2020-03-04] MEDS: SUCRALFATE 1 GM TAB PO SCH ×2 (16:15→21:18)
[2020-03-04] MEDS: LOSARTAN POTASSIUM 25 MG TAB PO SCH (16:15)
[2020-03-04] MEDS: PANTOPRAZOLE SOD 40 MG TABEC PO SCH (16:15)
[2020-03-04] MEDS: RANOLAZINE 500 MG TABSR PO SCH (16:15)
[2020-03-04] MEDS: METOPROLOL TARTRATE 25 MG TAB PO SCH (16:15)
[2020-03-04] MEDS: GABAPENTIN 400 MG CAP PO SCH ×2 (16:15→21:18)
[2020-03-04] MEDS: MIDODRINE 2.5 MG TAB PO SCH ×2 (16:15→21:18)
[2020-03-04 16:48] VITALS: BP 123/57
--- NOTE | 2020-03-04 19:05 | NUR ---
Bedside shift report completed with morning nurse. Pt lying in bed HOB 60 degrees. Pt c/o mild abdominal pain. Call light within reach. Bed locked.
[2020-03-04 20:00] VITALS: BP 135/66
[2020-03-04 22:26] VITALS: BP 135/66
[2020-03-05] VITALS (7 sets, daily range): BP systolic 104–131; BP diastolic 49–114
[2020-03-05] MEDS: MORPHINE SULFATE INJ 4 MG/ML INJ 1ML IV PRN ×5 (01:28→21:58)
[2020-03-05] MEDS: ONDANSETRON HCL INJ 2MG/ML 2ML 2 MG/ML VIAL IV PRN ×3 (01:28→12:48)
[2020-03-05] MEDS: METRONIDAZOLE 500MG/NS 100ML 100 ML IV SCH ×4 (02:58→21:53)
[2020-03-05 06:04] LABS: BASOPHILS % 0.2 % (0.0-1.0); EOSINOPHILS # (AUTO) 0.1 (0.0-0.4); HEMATOCRIT 33.9 % (34.2-44.1); HEMOGLOBIN 10.8 g/dL (12.0-16.0); LYMPHOCYTES # (AUTO) 1.1 (1.0-3.2); LYMPHOCYTES % 17.7 % (18.0-39.1); MEAN CORPUSCULAR HEMOGLOBIN 31.7 pg (28-32); MEAN CORPUSCULAR HGB CONC 31.9 g/dL (31-35); MEAN CORPUSCULAR VOLUME 99.4 fL (81-99); MONOCYTES # (AUTO) 0.8 (0.2-0.8); NEUTROPHILS % 66.6 % (38.7-80.0); PLATELET COUNT 208 x10e3/uL (140-360); RED BLOOD COUNT 3.41 x10e6/uL (3.6-5.1); RED CELL DISTRIBUTION WIDTH 14.5 % (11.7-14.4)
[2020-03-05 06:30] LABS: ALBUMIN 3.3 g/dL (3.5-5.0); ALBUMIN/GLOBULIN RATIO 1.1 (0.8-2.0); ANION GAP 14.4 mmol/L (8-16); CALCIUM 8.2 mg/dL (8.4-10.2); CREATININE, SERUM 1.31 mg/dL (0.57-1.11); POTASSIUM 3.4 mmol/L (3.5-5.1)
[2020-03-05] MEDS ORDERED: NITROGLYCERIN 0.4 MG SUBL SL PRN (07:15)
[2020-03-05] MEDS ORDERED: TRAZODONE HCL 50 MG TAB PO PRN (07:15)
[2020-03-05] MEDS ORDERED: TIZANIDINE HCL 4 MG TAB PO PRN (07:15)
[2020-03-05] MEDS ORDERED: TEMAZEPAM 15 MG CAP PO PRN (07:15)
[2020-03-05] MEDS: INSULIN REGULAR, HUMAN 100 UNIT/1 ML 3ML VIAL SQ SCH ×4 (07:30→21:00)
[2020-03-05] MEDS: NON-FORMULARY MEDICATION (Fluticasone/Vilanterol (Breo Ellipta 100-25 Mcg INH) 1 INH) INH SCH (07:30)
--- NOTE | 2020-03-05 08:00 | NUR ---
Clarified Lantus home medication with the patient. Patient stated that she is taking 40 units at night of Lantus.
[2020-03-05] MEDS: PANTOPRAZOLE SOD 40 MG TABEC PO SCH ×2 (08:45→16:26)
[2020-03-05] MEDS: SUCRALFATE 1 GM TAB PO SCH ×4 (08:45→21:00)
[2020-03-05] MEDS: NON-FORMULARY MEDICATION (Letrozole 2.5 MG) PO SCH (08:47)
[2020-03-05] MEDS: SPIRONOLACTONE 25 MG TAB PO SCH (08:47)
[2020-03-05] MEDS: CHLORZOXAZONE 500 MG PO SCH ×2 (08:47→16:27)
[2020-03-05] MEDS: LOSARTAN POTASSIUM 25 MG TAB PO SCH (08:48)
[2020-03-05] MEDS: FUROSEMIDE 40 MG TAB PO SCH (08:49)
[2020-03-05] MEDS: GABAPENTIN 400 MG CAP PO SCH ×3 (08:50→21:00)
[2020-03-05] MEDS: METOPROLOL TARTRATE 25 MG TAB PO SCH (08:50)
[2020-03-05] MEDS: CLOPIDOGREL BISULFATE 75 MG TAB PO SCH (08:51)
[2020-03-05] MEDS: MIDODRINE 2.5 MG TAB PO SCH ×3 (08:51→21:00)
[2020-03-05] MEDS: ALLOPURINOL 300 MG TAB PO SCH (08:52)
[2020-03-05] MEDS: RANOLAZINE 500 MG TABSR PO SCH ×2 (08:52→16:27)
[2020-03-05] MEDS: THYROID 60 MG TAB PO SCH (08:52)
[2020-03-05] MEDS ORDERED: METOPROLOL TARTRATE 25 MG TAB PO SCH (09:00)
[2020-03-05] MEDS ORDERED: LOSARTAN POTASSIUM 25 MG TAB PO SCH (09:00)
[2020-03-05] MEDS: PROMETHAZINE HCL 25 MG TAB PO PRN ×2 (10:12→16:27)
--- NOTE | 2020-03-05 19:56 | History and Physical ---
CHIEF COMPLAINT: The patient is a 69-year-old female, who came in with nausea, vomiting, and diarrhea. HISTORY OF PRESENT ILLNESS: This is Ms. Nadia Renner with a history of congestive heart failure with a history of pulmonary hypertension who was in a usual state of health until the patient started to have some less abdominal pain and then started with nausea, vomiting, and diarrhea. This has been going on for the last 3 days and constant. The patient came in, was found to be in acute gastroenteritis and dehydration, was admitted to the hospital for fluid resuscitation. PAST MEDICAL HISTORY: The patient has had a past medical history of breast cancer in the past, history of thyroid cancer in the past, history of neuropathy, history of diabetes mellitus, history of fibromyalgia, history of Raynaud disease, history of irritable bowel syndrome, history of hypertension; history of congestive heart failure, diastolic, which is chronic. The patient also has pulmonary hypertension as mentioned above. PAST SURGICAL HISTORY: History of thyroidectomy, history of mastectomy with lymph node dissection, history of spinal cord stimulator, history of pacer with AICD, history of hysterectomy, appendectomy, cholecystectomy, bladder suspension, right kidney nephrostomy, has a Port-A-Cath, history of back surgery and a pacemaker placement. SOCIAL HISTORY: No EtOH. No IV drug abuse. History of smoking in the past. Currently a nonsmoker. FAMILY HISTORY: Noncontributory. REVIEW OF SYSTEMS: Negative for chest pain. No shortness of breath. Positive for nausea, vomiting, or diarrhea. No constipation. No rectal bleeding. No hematochezia. No hematemesis. Diarrhea is characterized as watery and . Hematologically, no problems and neurologically positive for headache, but no blurry vision and no diplopia. ALLERGIES: PHYSICAL EXAMINATION: VITAL SIGNS: Temperature 98.1, pulse 83, respirations of 20, blood pressure is 166/76, pulse oximetry of 99% on room air. HEENT: Normocephalic, atraumatic. Pupils reactive to light and accommodation. SKIN: No tenting present on the skin. ABDOMEN: The patient's abdomen is tender in the left lower quadrant. EXTREMITIES: No clubbing, no cyanosis, no edema. LABORATORY VALUES: Initial white count is 8.15, hemoglobin 12.5, hematocrit of 37.8. Urine essentially negative. Sodium 138, potassium 3.4, chloride of 102, CO2 of 18. BUN of 23, creatinine of 1.75. IMAGING STUDIES: CT scan hepatic steatosis, moderate dilatation of the common bile duct reflecting for multiple cholecystectomy. No acute intrapelvic abnormalities. No bowel dilatation. Colonic diverticulosis. Amylase and lipase normal. ASSESSMENT: Ms. Renner with: 1. Abdominal pain. 2. Nausea, vomiting, and diarrhea. 3. History of congestive heart failure. 4. Hyperlipidemia. 5. Diabetes mellitus. PLAN: Continue home medication. The patient has been rehydrated adequately. We will continue monitoring her pain. Medications have been restarted. The patient to start on clear liquid diet. Stool O and P will be done and the stool C. diff will be done too. Further recommendation per clinical course. We will continue to monitor the patient. Fluids will be stopped at this time and blood work will be done in the morning and repeat in the morning. MD JEISON Waldrop/JESSICAL /[id number]
[2020-03-05] MEDS ORDERED: INSULIN GLARGINE SC SCH (21:00)
[2020-03-05] MEDS ORDERED: INSULIN GLARGINE 100 UNITS/ML VIAL SQ SCH (21:00)
[2020-03-06] VITALS: BP 112/47
[2020-03-06] MEDS: METRONIDAZOLE 500MG/NS 100ML 100 ML IV SCH ×2 (03:38→08:46)
[2020-03-06 04:00] VITALS: BP 108/90
[2020-03-06] MEDS: MORPHINE SULFATE INJ 4 MG/ML INJ 1ML IV PRN ×2 (04:40→12:11)
[2020-03-06] MEDS: PROMETHAZINE HCL 25 MG TAB PO PRN (04:41)
--- NOTE | 2020-03-06 06:29 | NUR ---
Huge storage like container was found at bedside with home medications which included Narcotics ( Tamezepam, Tylenol 3) and other known sedating medications (Trazodone 150mg, Zanaflex, Chlorzoxazone 500mg, Gabapentin 400mg , Phenergan 25mg, Benadryl 25mg ) . Patient had also a weekly pill box that was pre-filled with daily tablets including the tylenol 3 and Temazepam 30mg . Asked patient if she has been taking her own medication and she admitted to doing so as "the day nurse said it was ok". I advised the patient that this is not safe as she is medicating herself and we are giving her ordered medication ( Morphine 4mg Q4hrs and Phenergan 25mg q4hrs PRN. Advised the patient that routinely Home medications go to the pharmacy and especially Narcotics which have to be verified by two nurses. Took medication to the Nursing station. Patient took her medication case and got angry and started sorting the out appearing very upset throwing the bottles into the empty container which i had given her to use to sort the medications. Notified Dr. Foss. Advised to take the medication and he will talk to the patient in the morning. Medications (Narcotics) counted with secondary Nurse and locked into ziplock bags. Returned the other medications to the patient besides the ones that were known to have drowsiness and sedative effects. Patient appeared remorseful and apologized for "acting out"..for now Vitals are stable, no adverse effects or overmedication symptoms physically noted. No distress. Patient voices no concerns besides asking for phenergan and morphine despite the fact that she denies nausea and emesis. Medicated the patient as ordered. MD in this a.m. Ordered D/c patient if the WBC is below 15. Discharge parameters will be noted and entered into the order entry representative. STAT CBC and CMP drawn peripherally . Laura cath remains intact and accessed, dressing CDI. Was also medicated with Lomotil for reported by patient Diarrhea. waiting results for lab draw.
[2020-03-06 07:04] LABS: BASOPHILS % 0.6 % (0.0-1.0); EOSINOPHILS # (AUTO) 0.1 (0.0-0.4); EOSINOPHILS % 1.7 % (0.0-6.0); HEMATOCRIT 35.7 % (34.2-44.1); HEMOGLOBIN 11.4 g/dL (12.0-16.0); LYMPHOCYTES # (AUTO) 1.5 (1.0-3.2); LYMPHOCYTES % 20.3 % (18.0-39.1); MEAN CORPUSCULAR HEMOGLOBIN 31.8 pg (28-32); MEAN CORPUSCULAR HGB CONC 31.9 g/dL (31-35); MEAN CORPUSCULAR VOLUME 99.7 fL (81-99); MONOCYTES # (AUTO) 0.8 (0.2-0.8); MONOCYTES % 10.8 % (4.4-11.3); NEUTROPHILS # (AUTO) 4.8 (2.1-6.9); NEUTROPHILS % 66.2 % (38.7-80.0); PLATELET COUNT 225 x10e3/uL (140-360); RED BLOOD COUNT 3.58 x10e6/uL (3.6-5.1); RED CELL DISTRIBUTION WIDTH 14.3 % (11.7-14.4)
[2020-03-06 07:25] LABS: ALBUMIN 3.5 g/dL (3.5-5.0); ALBUMIN/GLOBULIN RATIO 1.1 (0.8-2.0); ANION GAP 15.7 mmol/L (8-16); CALCIUM 8.5 mg/dL (8.4-10.2); CREATININE, SERUM 1.47 mg/dL (0.57-1.11); POTASSIUM 3.7 mmol/L (3.5-5.1)
[2020-03-06] MEDS: INSULIN REGULAR, HUMAN 100 UNIT/1 ML 3ML VIAL SQ SCH ×2 (07:30→11:30)
[2020-03-06] MEDS: NON-FORMULARY MEDICATION (Fluticasone/Vilanterol (Breo Ellipta 100-25 Mcg INH) 1 INH) INH SCH (07:30)
[2020-03-06 07:37] LABS: MAGNESIUM 1.2 MG/DL (1.3-2.1)
--- NOTE | 2020-03-06 07:48 | Progress Note ---
DATE: SUBJECTIVE: This is a 69-year-old female who came in with colitis of uncertain nature. White count is normal. She is feeling better. Fluid hydration has been done. OBJECTIVE: VITAL SIGNS: Temperature is 98.6, pulse of 65, respirations of 20. HEENT: Normocephalic, atraumatic. Pupils reactive. CVS: S1 and S2 normal. Regular rhythm. ABDOMEN: Soft, nontender. EXTREMITIES: No clubbing, no cyanosis, no edema. ASSESSMENT: Ms. Renner with: 1. Abdominal pain. 2. Nausea, vomiting, and diarrhea, presumably noninfectious. 3. History of congestive heart failure. 4. Hyperlipidemia. 5. Diabetes mellitus. PLAN: Continue to monitor the patient. The patient can be discharged today. Laboratory values are pending for chemistries and stool. The patient can be followed as an outpatient on a later date. We can discharge her today. MD JEISON Waldrop/MODL /[id number]
[2020-03-06 08:33] VITALS: BP 130/51
[2020-03-06] MEDS: SUCRALFATE 1 GM TAB PO SCH ×2 (08:45→12:10)
[2020-03-06] MEDS: PANTOPRAZOLE SOD 40 MG TABEC PO SCH (08:45)
[2020-03-06] MEDS: CHLORZOXAZONE 500 MG PO SCH (08:46)
[2020-03-06] MEDS: NON-FORMULARY MEDICATION (Letrozole 2.5 MG) PO SCH (08:47)
[2020-03-06] MEDS: SPIRONOLACTONE 25 MG TAB PO SCH (08:47)
[2020-03-06] MEDS: FUROSEMIDE 40 MG TAB PO SCH (08:48)
[2020-03-06] MEDS: LOSARTAN POTASSIUM 25 MG TAB PO SCH (08:48)
[2020-03-06] MEDS: GABAPENTIN 400 MG CAP PO SCH (08:58)
[2020-03-06] MEDS: METOPROLOL TARTRATE 25 MG TAB PO SCH (08:58)
[2020-03-06] MEDS: CLOPIDOGREL BISULFATE 75 MG TAB PO SCH (08:58)
[2020-03-06] MEDS: THYROID 60 MG TAB PO SCH (08:59)
[2020-03-06] MEDS: MIDODRINE 2.5 MG TAB PO SCH (08:59)
[2020-03-06] MEDS: RANOLAZINE 500 MG TABSR PO SCH (08:59)
[2020-03-06] MEDS: ALLOPURINOL 300 MG TAB PO SCH (09:00)
[2020-03-06] MEDS ORDERED: SODIUM CHLORIDE 0.9% 250ML 250 ML ONE (09:22)
[2020-03-06 11:40] VITALS: BP 130/51
[2020-03-06 12:02] VITALS: BP 128/55
[2020-03-06] MEDS: ONDANSETRON HCL INJ 2MG/ML 2ML 2 MG/ML VIAL IV PRN (12:11)
[2020-03-06] MEDS ORDERED: HEPARIN 500 UNITS/5ML MDV INJ SCH (14:30)
--- NOTE | 2020-03-06 14:50 | NUR ---
Discharge education provided. Patient does not have new medications. Discharge packet given. Left chest rasta cath is flushed and heparinize with 500Units. Forrest needle removed, intact. No bleeding noted. Respiration even and unlabored without SOB. Call light in reach.
--- NOTE | 2020-03-06 15:22 | NUR ---
Transported patient via wheelchair with all personal belongings noted.
[2020-03-06 15:37] VITALS: BP 147/51
--- OUTSIDE RECORDS SUMMARY | 2020-03-16 13:32 | XMS REPORT | Clinical Summary ---
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 Name Role Phone Praveen Foss MD PCP Allergies Comments Active Allergy Reactions Severity Noted Date Fluticasone 01/04/2018 Propion-Salmeterol Muscle tremors Amitriptyline 05/24/2013 Amoxicillin Itching 01/04/2018 Amoxicillin-Pot Itching 05/24/2013 Clavulanate Headache Aspartame 05/24/2013 Aspirin Anaphylaxis High 01/04/2018 Muscle tremors Baclofen 05/24/2013 Povidone-Iodine Itching, Rash Low 01/04/2018 Betamethasone Acet,Sod Palpitations Low 018 Phos Cephalexin Itching 05/24/2013 Hydrocodone-Acetaminophen Itching 05/24/2013 [...] Carbamazepine 10/04/2018 Tetanus Vaccines And Rash, Low 3 Toxoid Swelling Tetracyclines Itching 05/24/2013 Tramadol Itching, [...] ULTRA-FINE OMAR PEN USE UTD 5 5 10/15/ 01 NEEDLE 32 gauge x 5/32" TIMES A DAY 9 needle Active RANEXA 500 mg 12 hr ER TK 1 T PO BID 0 01 tablet 9 Active temazepam (RESTORIL) 30 TK 2 C PO QHS 0 10/24/ mg capsule 9 Active diphenoxylate-atropine Take 1 tablet 0 (LOMOTIL) 2.5-0.025 mg by mouth 4 per tablet (four) times a day as needed for diarrhea. Active furosemide (LASIX) 20 mg Take 20 mg by 0 tablet mouth every morning. 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 Other hydronephrosis 02/18/2018 Encounters Care Team Description Date Type Specialty Nathalie Reid MA 05/03/2019 Telephone Urology after 03/04/2019 Family History Medical History Relation Name Comments [...] travel history available. Last Filed Vital Signs Not on file Plan of Treatment Health Maintenance Due Date Last Done Comments DIABETIC RETINAL EYE EXAM 1951 DIABETIC FOOT EXAM 1961 BREAST CANCER SCREENING 2001 COLONOSCOPY SCREENING 2001 SHINGLES VACCINES (#1) 2001 65+ PNEUMOCOCCAL VACCINE 2016 (1 of 2 - PCV13) INFLUENZA VACCINE 03/17/2020 11/02/2018 Implants Device Identifier Shelf Expiration Date Model / Serial / L ot Implanted Type Area Manufactur er [id number] / / Clip Ligtng Hem-O-Carmen Endoscpc Aplr Surgical N/A: N/A ERIK Plymr Lg - [id number] Implants; CLOSURE Implanted: Qty: 1 on 12/08/2018 by Expanders; Ольга Carranza MD at [facility] Extenders; Surgical Wires [id number] / / Clip Ligtng Hem-O-Carmen Endoscpc Aplr Surgical N/A: N/A WECK Plymr Lg - [id number] Implants; CLOSURE Implanted: Qty: 1 on 12/08/2018 by Expanders; Ольга Carranza MD at [facility] Extenders; Surgical Wires 07/12/2021 192 132 / / [id number] Stent Uretl Polrs Ult 2drmtr 6fr Urological N/A: N/A BSC 24cm Hydroplus W/O Gw - [id number] Implants URO LOGY Implanted: Qty: 1 on 10/27/2018 by or Ольга Burgos MD at [facility] 09/12/2021 192 133 / / [id number] Stent Uretl Polrs Ult 2drmtr 6fr Urological Right: N/A BSC 26cm Hydroplus W/O Gw - [id number] Implants URO LOGY Implanted: Qty: 1 on 12/08/2018 by or Ольга Burgos MD at [facility] Results Not on fileafter 03/04/2019 Insurance Type Payer Benefit Subscriber ID Effective Phone Address Plan / Dates Group [facility] MEDICARE AARP xxxxxxxxx [id number] MEDICARE resent COMPLETE [facility] Advance Directives For more information, please contact: [phone] Patient Car Hopper Explanation Type Date Recorded Advance Directives, 01/25/2018 7:34 AM Living Will and Medical Power of Senior Hr Generalist Advance Directives, 02/19/2018 10:37 AM Living Will and Medical Power of Senior Hr Generalist POA 12/11/17 Advance Directives, 12/20/2018 11:54 AM Living Will and Medical Power of Senior Hr Generalist
--- OUTSIDE RECORDS SUMMARY | 2020-03-16 13:32 | XMS REPORT | Clinical Summary ---
Author Author [facility] Address Unknown Phone Unavailable Care Team Providers Care Sawdust Drier Name Role Phone Nasrin Wallace PCP Unavailable Allergies Comments Active Allergy Reactions Severity Noted Date Neurological problems Fluticasone 05/24/2013 Propion-Salmeterol Muscle tremors Amitriptyline 05/24/2013 Headache Aspartame 05/24/2013 Gastritis All NSAIDS Salicylates 05/24/2013 Amoxicillin-Pot Itching 05/24/2013 Clavulanate Muscle tremors Baclofen 05/24/2013 Povidone-Iodine Itching, Rash Low 05/24/2013 Betamethasone Acet,Sod Palpitations Low 013 Phos Clindamycin Itching 05/24/2013 IV AND TOPICAL IODINE Iodine And Iodide Itching 05/24/2013 Containing Products Cephalexin Itching 05/24/2013 Muscle tremors Pregabalin 05/24/2013 Hydrocodone-Acetaminophen Itching 05/24/2013 Penicillins Itching 05/24/2013 Oxycodone-Acetaminophen Nausea And 05/24/2013 Vomiting Tachycardia Lisinopril Palpitations Low 10/05/2013 unknown Propantheline 10/05/2013 Muscle tremors Metoclopramide Hcl 05/24/2013 unknown Methocarbamol 05/24/2013 Vomiting Pentazocine Lactate 05/24/2013 unknown Carbamazepine Other (See 10/05/2013 Comments) Tetanus Vaccines And Swelling, Low 3 Toxoid Rash Tetracyclines Itching 05/24/2013 Tramadol Itching, Rash Low 05/24/2013 Unknown Metolazone 05/24/2013 Muscle weakness, wheezing Simvastatin 05/24/2013 Medications End Date Status Medication Sig Dispensed Refills Start Date Active dexlansoprazole 60 mg Take 60 mg by 0 capsule mouth 2 (two) times daily. Active dicyclomine (BENTYL) 20 Take 20 mg by 0 mg tablet mouth every 6 (six) hours. Active sucralfate (CARAFATE) 1 g Take 1 g by 0 tablet mouth 4 (four) times daily as needed. Active lactulose (CEPHULAC) 20 Take 20 g by 0 gram packet mouth every 6 (six) hours as needed. Active linaclotide (LINZESS) 290 Take 290 mcg 0 mcg Cap by mouth daily. Active losartan (COZAAR) 100 MG Take 100 mg 0 tablet by mouth daily. Active furosemide (LASIX) 20 MG Take 40 mg by 0 tablet mouth daily. Active potassium chloride Take 10 mEq 0 (KLOR-CON) 10 MEQ CR by mouth 2 tablet (two) times daily. Active saxagliptin 5 mg Tab Take 5 mg by 0 mouth daily. Active glimepiride (AMARYL) 2 MG Take 4 mg by 0 tablet mouth 2 (two) times daily. Active buprenorphine 10 mcg/hour Place 15 0 PTWK mcg/hr onto the skin every 7 days. Active milnacipran (SAVELLA) 50 Take 50 mg by 0 mg Tab mouth 2 (two) times daily. Active calcium carbonate (TUMS) Take 1 tablet 0 500 mg chewable tablet by mouth 3 (three) times daily. Active cholecalciferol, vitamin Take 2,000 0 D3, 2,000 unit Tab Units by mouth 2 (two) times daily. Active albuterol (VENTOLIN HFA) Inhale 1 puff 0 90 mcg/actuation inhaler by mouth via inhaler every 6 (six) hours as needed. Active multivitamin capsule Take 1 0 capsule by mouth daily. Active chlorthalidone (HYGROTEN) Take 25 mg by 0 25 MG tablet mouth daily. Active promethazine (PHENERGAN) Take 25 mg by 0 25 MG tablet mouth every 4 (four) hours as needed. Active docusate sodium (COLACE) Take 100 mg 0 100 MG capsule by mouth 2 (two) times daily. Active ondansetron (ZOFRAN) 4 MG Take 4 mg by 0 tablet mouth 4 (four) times daily as needed. Active diphenoxylate-atropine Take 1 tablet 0 (LOMOTIL) 2.5-0.025 mg by mouth 3 per tablet (three) times daily as needed. Active zolpidem (AMBIEN) 10 mg Take 10 mg by 0 tablet mouth every night as needed. Active ZOLEDRONIC Inject 0 ACID/MANNITOL&WATER intravenously (RECLAST IV) . yearly Active MAGNESIUM CITRATE ORAL Take 250 mg 0 by mouth 3 (three) times daily. Active insulin detemir 100 Inject 10 0 unit/mL (3 mL) Units InPnIndications: type 2 subcutaneousl diabetes mellitus y every morning. Active budesonide (PULMICORT Inhale 2 0 FLEXHALER) 180 puffs by mcg/actuation inhaler mouth via inhaler 2 (two) times daily. Active metoprolol (TOPROL-XL) Take 1.5 30 tablet 2 / 100 MG 24 hr tablet tablets (150 4 mg total) by mouth nightly. Active tiZANidine (ZANAFLEX) 4 Take 0.5 30 tablet 0 /201 MG tablet tablets (2 mg 4 total) by mouth daily. 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 Last Filed Vital Signs Not on file Plan of Treatment Not on file Implants Device Identifier Shelf Expiration Date Model / Serial / L ot Implanted Type Area Manufactur er 06/05/2015 [id number] / [id number] / [id number] Generator,Pulse Neurostimulator Pain N/A: Back BLACKWELL Implantable Precision Spectra - Mgmt/Stimu [facility]ENT [facility] [id number] lator Implanted: Qty: 1 on 08/05/2013 by Pipo Muse MD 09/05/2014 [id number] / [id number] / [id number] Lead,Paddle Artisan Precision Pain N/A: Back BLACKWELL Platnalock 70cm - [id number] Mgmt/Stimu SCIENTIFIC Implanted: Qty: 1 on 08/05/2013 by Pipo Cartagena MD [id number] / / Kit,Charging Precision 2.0 - Pain [place] [id number] Mgmt/Stimu SCIENTIFIC Implanted: Qty: 1 on 08/05/2013 britton 05/16/2015 [id number] / / [id number] Stent,Uret F/G Contour Injection Uro Stent Right: Ureter [place] 6.0/24 - [id number] SCIENTIFIC Implanted: Qty: 1 on 10/10/2013 by Mark Velasquez MD 10/06/2015 / 1960 / N/A: Back Implanted: Qty: 1 on 08/05/2013 Results Not on fileafter 03/04/2019 Insurance Payer Benefit Subscriber ID Type Phone Address Plan / Group MEDICAID - MEDICAID [facility] xxxxxxxxx Medica id CARE COMM STAR Contracted PLAN Advance Directives For more information, please contact: [address] [address] Date Inactivated Comments Code Status Date Activated 12/06/2013 4:54 PM All possible means of suppor t, including: cardiac massage, mechanical ventilation, and defibrillation will be used to support life. Code ONE 12/05/2013 3:13 PM 12/05/2013 3:13 PM All possible means of suppor t including;cardiac massage, mechanical ventilation, and defibrillation will be used to support life. Code ONE 12/04/2013 10:08 PM 10/10/2013 6:13 PM All possible means of suppor t including;cardiac massage, mechanical ventilation, and defibrillation will be used to support life. Code ONE 10/10/2013 9:40 AM 08/10/2013 3:28 PM All possible means of suppor t, including: cardiac massage, mechanical ventilation, and defibrillation will be used to support life. Code ONE 08/05/2013 11:15 PM 08/05/2013 11:15 PM All possible means of suppor t including;cardiac massage, mechanical ventilation, and defibrillation will be used to support life. Code ONE 08/05/2013 11:34 AM
--- OUTSIDE RECORDS SUMMARY | 2020-03-16 13:32 | XMS REPORT | Clinical Summary ---
Author Author [facility] Organization [facility] Address Unknown Phone Unavailable Care Team Providers Care Manager Urology Name Role Phone Zarina Berman MD 5 Allergies Comments Active Allergy Reactions Severity Noted Date States caused neurological problems Fluticasone Other 02/14/2014 Propion-Salmeterol Amoxicillin 10/11/2011 Aspartame Nausea and 02/14/2014 Vomiting Aspirin Diarrhea 02/14/2014 Amoxicillin-Pot 10/11/2011 Clavulanate Baclofen Other 02/14/2014 Povidone-Iodine Rash 10/11/2011 Clarithromycin 10/11/2011 Betamethasone Acet,Sod Other, 02/14/2014 Phos Palpitations Rash Clindamycin 04/20/2014 Propoxyphene 10/11/2011 Amitriptyline Other 02/14/2014 Fd And C Blue No.1 10/11/2011 Cephalexin 10/11/2011 Muscle pains Atorvastatin Breathing 07/06/2014 problems, Other Low glucose, muscle aches Gemfibrozil 04/13/2014 Pregabalin Other 02/14/2014 Nsaids (Non-Steroidal Diarrhea 02/14/2014 Anti-Inflammatory Drug) Penicillins 10/11/2011 Oxycodone-Acetaminophen Nausea and 10/11/2011 Vomiting Metoclopramide Hcl Other 02/14/2014 Pentazocine Lactate 10/11/2011 Carbamazepine 10/11/2011 Tetanus Vaccines And 10/11/2011 Toxoid Tetracycline 10/11/2011 Tramadol Rash, 10/11/2011 Itching, Palpitations Hydrocodone-Acetaminophen Itching 02/14/2014 Metolazone 10/11/2011 Muscle pain Ezetimibe Breathing 07/06/2014 problems, Other Simvastatin Other 02/14/2014 Medications End Date Status Medication Sig Dispensed Refills Start Date Active lancets (TRUEPLUS by 100 Each 1 02/15/20 1 LANCETS) 28 MISCELLANEOUS 4 gaugeIndications: DMII route 4 times (diabetes mellitus, type weekly. 2) Active albuterol (PROVENTIL HFA) Inhale 2 21.1 g 8 90 mcg/actuation Puffs by 4 inhalerIndications: mouth every 4 Asthma hours as needed for Wheezing or Shortness of Breath. Active Nebulizer & Compressor by 1 Device 0 For Neb DeviIndications: Misc.(Non-[place]yn[place] 4 Bronchospasms g; Combo Route) route. Active nitroGLYCERIN (NITROSTAT) Dissolve 1 100 tablet 3 0.4 mg sublingual tablet under 4 tabletIndications: CAD the tongue (coronary artery disease) every 5 minutes (up to 3 doses) as needed for chest pain. If no relief, call 911 Active ipratropium (ATROVENT) Inhale 2.5 mL 62.5 mL 3 1 0.02 % nebulizer by mouth 6 4 solutionIndications: times daily. Allergies, Drug Active fenofibrate Take 1 tablet 30 tablet 11 nanocrystallized (TRICOR) by mouth 5 48 mg tabletIndications: daily. High triglycerides, Hyperlipidemia Active ipratropium (ATROVENT Inhale 2 38.7 g 3 02/14 HFA) 17 mcg/actuation Puffs by 5 inhalerIndications: mouth 4 times Wheeze, SOB (shortness of daily. breath), Asthmatic bronchitis Active albuterol (PROVENTIL) 2.5 Inhale 3 mL 75 mL 2 mg /3 mL (0.083 %) by mouth via 5 nebulizer nebulizer solutionIndications: every 4 hours Shortness of breath as needed for Wheezing or Shortness of Breath. Active beclomethasone (QVAR) 80 Inhale 2 26.1 g 0 0 mcg/actuation Puffs by 5 inhalerIndications: mouth 2 times Shortness of breath daily. Active budesonide-formoterol Inhale 2 0 (SYMBICORT) 160-4.5 Puffs by mcg/actuation inhaler mouth 2 times daily. Active CALCIUM CARBONATE/VITAMIN Take by 0 D3 (CALCIUM 600 + D,3, mouth. OR) Active hydrOXYzine (ATARAX) 50 Take 2 90 tablet 3 mg tabletIndications: tablets by 5 Aspirin sensitivity mouth every 6 hours as needed for Itching. Active EPINEPHrine (EPIPEN) 0.3 Inject 0.3 mL 2 Syringe 0 mg/0.3 mL (1:1,000) intramuscular 5 injectionIndications: ly as needed Aspirin sensitivity for Anaphylaxis. Active diphenhydrAMINE Take 50 mg by 0 (BENADRYL) 25 mg capsule mouth every 4 hours as needed for Itching. Active LACTULOSE OR Take by 0 mouth. Active diphenoxylate-atropine Take 1 tablet 0 (LOMOTIL) 2.5-0.025 mg by mouth 3 per tablet times daily. Active tiZANidine (ZANAFLEX) 4 Take 1 tablet 90 tablet 2 mg tabletIndications: by mouth at 5 Insomnia, unspecified bedtime insomnia nightly. Active zafirlukast (ACCOLATE) 20 Take 1 tablet 120 tablet 4 mg tabletIndications: by mouth 2 5 Allergic asthma with times daily. stated cause Active levothyroxine (SYNTHROID) Take 175 mcg 0 175 mcg tablet by mouth daily. Active promethazine (PHENERGAN) Take 1 tablet 30 tablet 1 25 mg tabletIndications: by mouth 6 Nausea every 8 hours as needed for Nausea or Vomiting. Active metoprolol tartrate Take 1 tablet 180 tablet 3 (LOPRESSOR) 50 mg by mouth 6 tabletIndications: twice a day. Coronary artery disease involving [place] coronary artery of [place] heart without angina pectoris Active gabapentin (NEURONTIN) Take 3 270 capsule 5 300 mg capsules by 6 capsuleIndications: mouth 3 times Diabetic polyneuropathy daily for 90 associated with type 2 days. diabetes mellitus Active furosemide (LASIX) 20 mg Take 1 tablet 90 tablet 5 tabletIndications: CAD by mouth 6 (coronary artery disease) daily. Active isosorbide mononitrate Take 2 180 tablet 5 (IMDUR) 30 mg extended tablets by 6 release mouth once a tabletIndications: CAD day. (coronary artery disease) Active cyclobenzaprine Take 1 tablet 90 tablet 1 10/20/19 1 (FLEXERIL) 10 mg by mouth 6 tabletIndications: nightly at Fibromyalgia bedtime as needed for Muscle Spasms. Active clopidogrel (PLAVIX) 75 Take 1 tablet 90 tablet 4 mg tabletIndications: by mouth 6 Coronary artery disease daily. involving [place] coronary artery of [place] heart without angina pectoris Active clotrimazole (LOTRIMIN) 1 Apply 1-2 30 mL 3 % external drops to 6 solutionIndications: affected Fungal toenail infection nails 2 times a day. Use a nail file to keep nails thin. Treatment may take up to 1 year. Active insulin aspart (NOVOLOG) Inject 20 120 mL 3 0 100 unit/mL Units under 6 injectionIndications: the skin 3 Diabetes type 2, times daily controlled Needing to inject 20 units under the skin three times daily for postprandial glucose spike. Active INSULIN SYRINGE 0.5mL Use to inject 200 Each 11 30GX5/16" (MONOJECT medication 4 6 ULTRACOMFORT INSULIN SYR times a day. 0.5ML 30GX5/16") Use a new syringe-needleIndications syringe each : Diabetes type 2, time. controlled Active blood glucose Use as 1 Kit 0 meterIndications: directed. 6 Diabetes type 2, TRUE TEST. controlled Active blood glucose test 5 times daily 200 Each 11 01/15 stripsIndications: to test blood 6 Diabetes type 2, sugar on controlled insulin. TRUE TEST STRIPS.. Active insulin glargine (LANTUS) Inject 50 20 mL 3 100 unit/mL Units under 6 injectionIndications: the skin Diabetes type 2, daily PLEASE controlled GIVE TWO VIALS - 1 VIAL NOT ENOUGH FOR ONE MONTH.. Active furosemide (LASIX) 40 mg Take 1 tablet 90 tablet 2 tabletIndications: by mouth 6 Localized edema daily. Active amLODIPine (NORVASC) 5 mg TAKE ONE (1) 30 tablet 4 tabletIndications: TABLET(S) BY 6 Essential hypertension MOUTH ONCE A DAY. Active KLOR-CON 10 10 mEq TAKE ONE (1) 30 tablet 1 extended release TABLET(S) BY 6 tabletIndications: MOUTH ONCE A Diuretic-induced DAY. hypokalemia Active insulin lispro (HUMALOG) Inject SQ per 20 mL 3 100 unit/mL sliding scale 6 injectionIndications: TID - 10 Controlled type 2 units if diabetes mellitus with sugars >200; insulin therapy 15 units if sugars >250; 20 units if sugars >300; 25 units if sugars >350. Active temazepam (RESTORIL) 30 TAKE 1 30 capsule 0 mg capIndications: CAPSULE BY 6 Insomnia, unspecified MOUTH EVERY DAY AT BEDTIME Active losartan (COZAAR) 100 mg Take 1 tablet 60 tablet 5 tabletIndications: by mouth 6 Essential hypertension, daily. benign Active Problems Problem Noted Date Spinal stenosis of lumbar region at multiple levels 08/02/2015 Chronic radicular pain of lower back 08/02/2015 Epiretinal membrane 06/22/2015 Combined form of age-related cataract, both eyes 01/2015 No diabetic retinopathy in both eyes 06/22/2015 Posterior vitreous degeneration 06/22/2015 Floaters 06/22/2015 chronic Macrocytic anemia 04/17/2015 CKD (chronic kidney disease) stage 3, GFR 30-59 ml/mi n 04/17/2015 Aspirin allergy 04/17/2015 Admitted to IMU for ASA desensitization 04/16/2015 Stridor 04/12/2015 Shortness of breath 04/12/2015 Primary thyroid papillary carcinoma 02/22/2015 Diabetic neuropathy 12/29/2014 Crohn disease 10/11/2014 Diabetes mellitus type 2 without retinopathy 015 NS (nuclear sclerosis) 10/09/2014 Myopia with astigmatism and presbyopia 10/09/2014 Renal mass, left 09/03/2014 Hydronephrosis, right 09/03/2014 Adjustment disorder with anxious mood 08/02/2014 CAD S/P percutaneous coronary angioplasty 07/24/2014 Overview: S/p PCI of ostial diagonal with Promus Premier 3mm x 12mm drug-eluting stent Allergic asthma with stated cause 07/24/2014 Multiple joint pain 03/28/2014 High triglycerides 03/09/2014 DMII (diabetes mellitus, type 2) 03/09/2014 H/O right and left heart catheterization 03/09/2014 Insomnia 03/09/2014 Fibromyalgia 03/09/2014 Chronic colitis 03/09/2014 Chronic left hip pain 03/09/2014 Constipation 10/12/2011 Ventral hernia, unspecified, without mention of obstr uction or gangrene 10/12/2011 CHF (congestive heart failure) HTN (hypertension) Hyperlipidemia Immunizations Name Administration Dates Next Due Influenza Vaccine 09/07/2014 (Deferred: Patie nt Refused), 07/24/2014 (Deferred: Patient Refused), 05/13/2014 (Deferred: Patient Refused) PPV 23 Pneumococcal 12/16/2010 Polysaccaride Pneumococcal 13-valent 04/19/2015 (Deferred: Patie nt Refused) conj 0.5 mL injection Family History Medical History Relation Name Comments Heart Father Asthma Mother COPD Cancer Mother breast CA at age 60 Heart Mother Hypothyroid Mother Relation Name Status Comments Father Mother Social History Date Tobacco Use Types Packs/Day Years Used Never Smoker Tobacco Cessation: Counseling Given: No Drinks/Week oz/Week Comments Alcohol Use occassional Yes Sex Assigned at Date Recorded Not on file Industry Job Start Date Occupation Not on file Not on file Not on file Travel End Travel History Travel Start No recent travel history available. Last Filed Vital Signs Not on file Plan of Treatment Health Maintenance Due Date Last Done Comments IMM Pneumococcal Age 65 2016 and Up DM Retinal Exam (Yearly) 06/22/2016 06/22/2015, 04/19/2015, 10/20/2014, Additional history exists DM Foot Exam (Yearly) 09/21/2016 09/21/2015, 10/25/2014 Breast Cancer Scrn 10/03/2016 10/03/2015, (Yearly) 04/26/2014 CORONARY ARTERY DISEASE 02/18/2017 02/19/2016, AGE 18 AND UP 11/23/2015, 08/24/2015, Additional history exists DM HGBA1C (Yearly) 02/18/2017 02/19/2016, 11/23/2015, 08/24/2015, Additional history exists Colonoscopy 5yr 01/15/2019 01/15/2014 IMM Influenza Seasonal 05/17/2020 09/21/2015 Oct to October (>/= 19 yrs) (Declined) Results Not on fileafter 03/04/2019 Insurance Type Payer Benefit Subscriber ID Effective Phone Address Plan / Dates Group [email or web address] xxxxxxxxxx [email or web address] [phone] [address] [id number] [place] [address] Advance Directives Patient 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 Pt does note that she would not want to be on prolonged life support. Full Code 09/07/2014 6:23 PM 09/05/2014 8:21 PM Full Code 09/03/2014 5:28 AM 08/04/2014 10:10 PM Full Code 07/30/2014 9:49 PM
--- OUTSIDE RECORDS SUMMARY | 2020-03-16 13:34 | XMS REPORT | Continuity of Care Document ---
Author Author [facility] t Organization [facility] Address [address] [place] [address] Phone Unavailable Care Team Providers Care Release Of Information Clerk Name Role Phone MD Liat RODRIGUEZ MD PCP Liat RODRIGUEZ Attphys Unavailable Francisco SALEEM LAIRD Attphys Unavailable Nathalie Reid MA Attphys Unavailable EULA, Liat AMBICA Attphys Unavailable LILYFrancisco SZYMANSKI Attphys Unavailable Neetu CONTRERAS Attphys Unavailable FADUMO SKINNER Attphys Unavailable NIRALI VALDEZ Attphys Unavailable HAMPEL, DHARA Attphys Unavailable Liat RODRIGUEZ Admphys Unavailable Payers Payer Name Policy Type Policy Number Effective Date Expiration Date Liat avilesjuan carlos Nunu Medicare Complete [id number] 2019 00:00:00 [facility] MEDICAREAARP MEDICARE COMPLETE [id number]-[facility] [place] xxxxxxxxx 2018 00:00:00 Chase Arcos Problems Condition Name Condition Details Condition Category Status Onset Date Resolution Date Last Treatment Date Treating Clinician Comments Source UPJ obstruction, congenital UPJ obstruction, congenital Disease Active 2018-12-08 00:00:00 Chase Arcos Other hydronephrosis Other hydronephrosis Disease Active 00:00:00 Chase Arcos Spinal stenosis of lumbar region at multiple levels Sp inal stenosis of lumbar region at multiple levels Disease Active 2015-08-02 00:00:00 [facility] Chronic radicular pain of lower back Chronic radicular pain of lower back Disease Active 2015-08-02 00:00:00 [facility] Epiretinal membrane Epiretinal membrane Disease Active 2015-06-22 00:00 :00 [facility] Combined form of age-related cataract, both eyes Combi renetta form of age-related cataract, both eyes Disease Active 2015-06-22 00:00:00 [facility] No diabetic retinopathy in both eyes No diabetic retinopathy in both eyes Disease Active 2015-06-22 00:00:00 [facility] 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 Dis ease Active 2015-06-22 00:00:00 [facility] ealth Floaters Floaters Disease Active 2015-06-22 00:00:00 [facility] chronic Macrocytic anemia chronic Macrocytic anemia Disease Ac tive 2015-04-17 00:00:00 [facility] CKD (chronic kidney disease) stage 3, GFR 30-59 ml/min CKD (chronic kidney disease) stage 3, GFR 30-59 ml/min Disease Active 2015-04-17 00:00:00 [facility] Aspirin allergy Aspirin allergy Disease Active 2015-04-17 00:00:00 [facility] Admitted to IMU for ASA desensitization Admitted to IM U for ASA desensitization Disease Active 2015-04-16 00:00:00 [facility] Stridor Stridor Disease Active 2015-04-12 00:00:00 [facility] Shortness of breath Shortness of breath Disease Active 2015-04-12 00:00 :00 [facility] 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 Disease Active 2015-02-22 00:00:00 [facility] Diabetic neuropathy Diabetic neuropathy Disease Active 2014-12-29 00:00 :00 [facility] Crohn disease Crohn disease Disease Active 2014-10-11 00:00:00 [facility] Diabetes mellitus type 2 without retinopathy Diabetes mellitus type 2 without retinopathy Disease Active 2014-10-09 00:00:00 [facility] NS (nuclear sclerosis) NS (nuclear sclerosis) Disease Active 2014-10-09 00:00:00 [facility] Myopia with astigmatism and presbyopia Myopia with astigmati sm and presbyopia Disease Active 2014-10-09 00:00:00 [facility] Renal mass, left Renal mass, left Disease Active 2014-09-03 00:00:00 [facility] Hydronephrosis, right Hydronephrosis, right Disease Active 201 12-15-17 00:00:00 [facility] Adjustment disorder with anxious mood Adjustment disorder wi th anxious mood Disease Active 2014-08-02 00:00:00 [facility] CAD S/P percutaneous coronary angioplasty CAD S/P perc utaneous coronary angioplasty Disease Active 2014-07-24 00:00:00 Overview: S/p PCI of ostial diagonal with Promus Premier 3mm x 12mm drug-eluting stent [facility] Allergic asthma with stated cause Allergic asthma with stated ca use Disease Active 2014-07-24 00:00:00 [facility] Multiple joint pain Multiple joint pain Disease Active 2014-03-28 00:00 :00 [facility] High triglycerides High triglycerides Disease Active 2014-03-09 00:00:0 0 [facility] DMII (diabetes mellitus, type 2) DMII (diabetes mellitus, type 2 ) Disease Active 2014-03-09 00:00:00 [facility] H/O right and left heart catheterization H/O right and left heart catheterization Disease Active 2014-03-09 00:00:00 [facility] Insomnia Insomnia Disease Active 2014-03-09 00:00:00 [facility] Fibromyalgia Fibromyalgia Disease Active 2014-03-09 00:00:00 [facility] Chronic colitis Chronic colitis Disease Active 2014-03-09 00:00:00 [facility] Chronic left hip pain Chronic left hip pain Disease Active 201 11-22-23 00:00:00 [facility] General weakness General weakness Disease Active 2013-12-27 00:00:00 [facility] Chest pain Chest pain Disease Active 2013-12-04 00:00:00 [facility] Chronic pain disorder Chronic pain disorder Disease Active 201 10-27-19 00:00:00 Overview: 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 [facility] Crohn disease Crohn disease Disease Active 2013-06-09 00:00:00 [facility] Acute diarrhea Acute diarrhea Disease Active 2013-06-08 00:00:00 [facility] Diabetes Diabetes Disease Active 2013-06-08 00:00:00 [facility] Small bowel obstruction Small bowel obstruction Disease Active 2013-05-26 00:00:00 [facility] Abdominal pain Abdominal pain Disease Active 2013-05-25 00:00:00 [facility] Partial small bowel obstruction Partial small bowel obstruction Dis ease Active 2013-05-25 00:00:00 [facility] Renal mass Renal mass Disease Active 2013-05-25 00:00:00 [facility] Crohn's disease Crohn's disease Disease Active 2013-05-25 00:00:00 [facility] Constipation Constipation Disease Active 2011-10-12 00:00:00 [facility] Ventral hernia, unspecified, without mention of obstru ction or gangrene Ventral hernia, unspecified, without mention of obstruction or gangrene Disease Active 2011-10-12 00:00:00 [facility] Aspiration pneumonia Aspiration pneumonia Problem Active [facility] Vomiting Problem Active [facility] Diarrhea Problem Active [facility] Dehydration Problem Active [facility] CHF (congestive heart failure) CHF (congestive heart failure) Disease Active [facility] HTN (hypertension) HTN (hypertension) Disease Active [facility] Hyperlipidemia Hyperlipidemia Disease Active [facility] Allergies, Adverse Reactions, Alerts Allergy Name Allergy Type Status Severity Reaction(s) Onset Date Inacti ve Date Treating Clinician Comments Source Acetaminophen Allergy to substance Active 2020-03-04 00:00: 00 [facility] Methocarbamol Allergy to substance Active 2020-03-04 00:00: 00 [facility] soap Allergy to substance Active 2020-03-04 00:00:00 [facility] ADVAIR Allergy to substance Active 2020-03-04 00:00:00 [facility] AMITRPTYLINE Allergy to substance Active 2020-03-04 00:00:0 0 [facility] IV CONTRAST Allergy to substance Active 2020-03-04 00:00:00 [facility] MYACINS Allergy to substance Active 2020-03-04 00:00:00 [facility] NSAIDS Allergy to substance Active 2020-03-04 00:00:00 [facility] PENICILLIN Allergy to substance Active 2020-03-04 00:00:00 [facility] TETANUS Allergy to substance Active 2020-03-04 00:00:00 [facility] Influenza Virus Vaccines Allergy to substance Active RASH 2019-10-23 00:00:00 [facility] Erythromycin base Allergy to substance Active ITCH 2019-10-23 00 :00:00 [facility] Nsaids (Non-Steroidal Anti-Inflammatory Drug) Propensi ty to adverse reactions to drug Active 2018-10-04 00:00:00 Price Arcos Other Food Propensity to adverse reactions Active 10-04 00:00:00 artificial sweetner Headache nausea vomiting Chase Arcos Lisinopril Propensity to adverse reactions to drug Active 2018-10-04 00:00:00 tachycardia Chase de anda Carbamazepine Propensity to adverse reactions to drug Active 2018-10-04 00:00:00 Not sure Chase de anda Fluticasone Propion-Salmeterol Propensity to adverse reactions to d rug Active 2018-01-04 00:00:00 Chase Arcos Amoxicillin Propensity to adverse reactions to drug Active Itching 2018-01-04 00:00:00 Chase de anda Aspirin Propensity to adverse reactions to drug Active Anaphylaxis 2018-01-04 00:00:00 Chase de anda Povidone-Iodine Propensity to adverse reactions to drug Active Itching, Rash 2018-01-04 00:00:00 Chase almendarez Betamethasone Acet,Sod Phos Propensity to adverse reactions to drug Active Palpitations 2018-01-04 00:00:00 Chase Arcos Atorvastatin Propensity to adverse reactions to drug Active 2018-01-04 00:00:00 Chase de anda Gemfibrozil Propensity to adverse reactions to drug Active 2018-01-04 00:00:00 Chase de anda Pregabalin Propensity to adverse reactions to drug Active 2018-01-04 00:00:00 Chase de anda Myacid D.S. Propensity to adverse reactions to drug Active Itching 2018-01-04 00:00:00 Chase de anda Oxycodone-Acetaminophen Propensity to adverse reactions to drug Activ e 2018-01-04 00:00:00 Chase almendarez Metoclopramide Hcl Propensity to adverse reactions to drug Active 2018-01-04 00:00:00 Chase de anda Methocarbamol Propensity to adverse reactions to drug Active 2018-01-04 00:00:00 Chase de anda Pentazocine Lactate Propensity to adverse reactions to drug Active 2018-01-04 00:00:00 [facility] Metolazone Propensity to adverse reactions to drug Active 2018-01-04 00:00:00 Chase James t Ezetimibe Propensity to adverse reactions to drug Active 2018-01-04 00:00:00 Chase de anda Simvastatin Propensity to adverse reactions to drug Active 2018-01-04 00:00:00 Chase James t NSAIDS (Non-Steroidal Anti-Inflamma Allergy to substance Active GASTRITIS, WHEEZING 2017-11-30 00:00:00 [facility] Salmeterol Allergy to substance Active NEUROLOGICAL PROB 2017-11-30 00:00:00 [facility] Propantheline Allergy to substance Active 2017-11-30 00:00: 00 [facility] Fluticasone Allergy to substance Active NEUROLOGICAL PROB 2017-11-30 00:00:00 [facility] Iodinated Contrast Media Allergy to substance Active Moderate I TCHING 2017-11-30 00:00:00 [facility] Lisinopril Allergy to substance Active TACHY 2017-11-11 00:00:00 [facility] MYCINS Allergy to substance Active ITCH 2017-11-11 00:00:00 [facility] Penicillin Allergy to substance Active ITCH 2017-11-11 00:00:00 [facility] Hydrocodone Allergy to substance Active Moderate ITCHING 2017-08-25 00: 00:00 [facility] Oxycodone Allergy to substance Active Moderate VOMITING 2017-08-25 00:0 0:00 [facility] Aspirin Allergy to substance Active Moderate GASTRIT IS, WHEEZING, DIAPHRAGMATIC SPASMS, THROAT CLOSES UP 2017-08-25 00:00:00 [facility] Baclofen Allergy to substance Active Moderate MUSCLE TREMORS AND JERKING 2017-08-25 00:00:00 [facility] Gemfibrozil Allergy to substance Active Moderate MUSCLE PAIN 20 03-09-08 00:00:00 [facility] Betamethasone Allergy to substance Active Moderate TACHYCARDIA AND HTN 2017-08-25 00:00:00 [facility] Metolazone Allergy to substance Active 2017-08-25 00:00:00 [facility] Aspartame Allergy to substance Active Moderate HEADACHES AND V OMITING 2017-08-25 00:00:00 [facility] Cephalexin Allergy to substance Active Moderate ITCHING AND VOM ITING 2017-08-25 00:00:00 [facility] Tetracycline Allergy to substance Active Mild ITCHING 2017-08-25 00:00: 00 [facility] clavulanic acid Allergy to substance Active Moderate ITCHING 2017-08-25 00:00:00 [facility] Povidone-iodine Allergy to substance Active Moderate RASH AND I TCHING 2017-08-25 00:00:00 [facility] Simvastatin Allergy to substance Active Moderate MUSCLE WEAKNESS, PAIN, WHEEZING, ELEVATED BLOOD SUGARS 2017-08-25 00:00:00 [facility] Amoxicillin Allergy to substance Active Moderate ITCHING 2017-08-25 00: 00:00 [facility] Tramadol Allergy to substance Active Moderate RASH, I TCHING, HEADACHES, IRREGULAR HEART BEAT 2017-08-25 00:00:00 [facility] Amitriptyline Allergy to substance Active Moderate MUSCLE TREMO RS 2017-08-25 00:00:00 [facility] Metoclopramide Allergy to substance Active Moderate MUSCLE TREM ORS 2017-08-25 00:00:00 [facility] Atorvastatin Allergy to substance Active Moderate MUSCLE PAIN WEAKNESS AND DARK URINE 2017-08-25 00:00:00 [facility] Ezetimibe Allergy to substance Active Moderate MUSCLE WEAKNESS , PAIN, WHEEZING 2017-08-25 00:00:00 [facility] Pregabalin Allergy to substance Active Moderate MUSCLE TREMORS AND JERKING 2017-08-25 00:00:00 [facility] Atorvastatin Propensity to adverse reactions to drug Active Breathing problems, Other 2014-07-06 00:00:00 Muscle pains [facility] Ezetimibe Propensity to adverse reactions to drug Active Breathing problems, Other 2014-07-06 00:00:00 Muscle pain [facility] Clindamycin Propensity to adverse reactions to drug Active 2014-04-20 00:00:00 Rash [facility] Gemfibrozil Propensity to adverse reactions to drug Active 2014-04-13 00:00:00 Low glucose, muscle aches [facility] Fluticasone Propion-Salmeterol Propensity to adverse reactions to d rug Active Other 2014-02-14 00:00:00 States caused neurolo gical problems [facility] Aspartame Propensity to adverse reactions to drug Active Nausea and Vomiting 2014-02-14 00:00:00 [facility] Aspirin Propensity to adverse reactions to drug Active Diarrhea 2014-02-14 00:00:00 [facility] Baclofen Propensity to adverse reactions to drug Active Other 2014-02-14 00:00:00 [facility] Betamethasone Acet,Sod Phos Propensity to adverse reactions to drug Active Other, Palpitations 2014-02-14 00:00:00 [facility] Amitriptyline Propensity to adverse reactions to drug Active Other 2014-02-14 00:00:00 [facility] Pregabalin Propensity to adverse reactions to drug Active Other 2014-02-14 00:00:00 [facility] Nsaids (Non-Steroidal Anti-Inflammatory Drug) Propensi ty to adverse reactions to drug Active Diarrhea 2014-02-14 00:00:00 [facility] Metoclopramide Hcl Propensity to adverse reactions to drug Active Other 2014-02-14 [facility] Propensity to adverse reactions to drug A ctive Itching 2014-02-14 00:00:00 [facility] Simvastatin Propensity to adverse reactions to drug Active Other 2014-02-14 00:00:00 [facility] Lisinopril Drug Allergy Active Palpitations 2013-10-05 00:00:00 Tachycardia [facility] Propantheline Drug Allergy Active 2013-10-05 00:00:00 unknown [facility] Carbamazepine Drug Allergy Active Other (See Comments) 00:00:00 [facility] Propantheline Propensity to adverse reactions to drug Active 2013-10-05 00:00:00 unknown [place] Jacob de anda Fluticasone Propion-Salmeterol Drug Allergy Active 2012 00:00:00 Neurological problems [facility] Amitriptyline Drug Allergy Active 2013-05-24 00:00:00 Muscle tremors [facility] Aspartame Drug Allergy Active 2013-05-24 00:00:00 Headache [facility] Salicylates Drug Allergy Active 2013-05-24 00:00:00 GastritisAll NSAIDS [facility] Amoxicillin-Pot Clavulanate Drug Allergy Active Itching 2013[facility] Active 2013-05-24 00:00:00 Muscle tremors [facility] Povidone-Iodine Drug Allergy Active Itching, Rash 2013-05-24 00:00 :00 [facility] Betamethasone Acet,Sod Phos Drug Allergy Active Palpit ations 2013-05-24 00:00:00 [facility] Clindamycin Drug Allergy Active Itching 2013-05-24 00:00:00 [facility] Iodine And Iodide Containing Products Drug Allergy Active Itching 2013-05-24 00:00:00 IV AND TOPICAL IODINE [facility] Cephalexin Drug Allergy Active Itching 2013-05-24 00:00:00 [facility] Pregabalin Drug Allergy Active 2013-05-24 00:00:00 Muscle tremors [facility] Hydrocodone-Acetaminophen Drug Allergy Active Itching 8 00:00:00 [facility] Penicillins Drug Allergy Active Itching 2013-05-24 00:00:00 [facility] Oxycodone-Acetaminophen Propensity to adverse reactions Active Nausea And Vomiting 2013-05-24 00:00:00 [facility] Metoclopramide Hcl Drug Allergy Active 2013-05-24 00:00 :00 Muscle tremors [facility] Methocarbamol Drug Allergy Active 2013-05-24 00:00:00 unknown [facility] Pentazocine Lactate Drug Allergy Active 2013-05-24 00:00:00 Vomiting [facility] Tetanus Vaccines And Toxoid Drug Allergy Active [place] 2013-05-24 00:00:00 [facility] Tetracyclines Drug Allergy Active Itching 2013-05-24 00:00:00 [facility] Tramadol Drug Allergy Active Itching, Rash 2013-05-24 00:00:00 [facility] Metolazone Drug Allergy Active 2013-05-24 00:00:00 Unknown [facility] Simvastatin Drug Allergy Active 2013-05-24 00:00:00 Muscle weakness, wheezing [facility] Amitriptyline Propensity to adverse reactions to drug Active 2013-05-24 00:00:00 Muscle tremors Chase James t Amoxicillin-Pot Clavulanate Propensity to adverse reactions to drug Active Itching 2013-05-24 00:00:00 Chase Arcos Aspartame Propensity to adverse reactions to drug Active 2013-05-24 00:00:00 Headache Chase de anda Baclofen Propensity to adverse reactions to drug Active 2013-05-24 00:00:00 Muscle tremors Chase Arcos Cephalexin Propensity to adverse reactions to drug Active Itching 2013-05-24 00:00:00 Chase de anda Hydrocodone-Acetaminophen Propensity to adverse reactions to drug A ctive Itching 2013-05-24 00:00:00 Chase Arcos Iodine And Iodide Containing Products Propensity to adverse reactions to drug Active Itching 2013-05-24 00:00:00 TOPI SUNNI IODINEIV IODINE REACTION 47 YRS AGO Chase Arcos Penicillins Propensity to adverse reactions to drug Active Itching 2013-05-24 00:00:00 Chase de anda Tetanus Vaccines And Toxoid Propensity to adverse reactions to drug Active Rash, Swelling 2013-05-24 00:00:00 Mirella Arcos Tetracyclines Propensity to adverse reactions to drug Active Itching 2013-05-24 00:00:00 Chase Meth odist Tramadol Propensity to adverse reactions to drug Active Itching, Rash 2013-05-24 00:00:00 [place] [facility] Amoxicillin Propensity to adverse reactions to drug Active 2011-10-11 00:00:00 [facility] Amoxicillin-Pot Clavulanate Propensity to adverse reactions to drug A ctive 2011-10-11 00:00:00 [facility] Povidone-Iodine Propensity to adverse reactions to drug Active Rash 2011-10-11 00:00:00 [facility] Clarithromycin Propensity to adverse reactions to drug Active 2011-10-11 00:00:00 [facility] Propoxyphene Propensity to adverse reactions to drug Active 2011-10-11 00:00:00 [facility] Fd And C Blue No.1 Propensity to adverse reactions to drug Active 2011-10-11 00:00:00 [facility] Cephalexin Propensity to adverse reactions to drug Active 2011-10-11 00:00:00 [facility] Penicillins Propensity to adverse reactions to drug Active 2011-10-11 00:00:00 [facility] Oxycodone-Acetaminophen Propensity to adverse reactions to drug Act sharon Nausea and Vomiting 2011-10-11 00:00:00 [facility] Pentazocine Lactate Propensity to adverse reactions to drug Active 2011-10-11 00:00:00 [facility] Carbamazepine Propensity to adverse reactions to drug Active 2011-10-11 00:00:00 [facility] Tetanus Vaccines And Toxoid Propensity to adverse reactions to drug A ctive 2011-10-11 00:00:00 [facility] Tetracycline Propensity to adverse reactions to drug Active 2011-10-11 00:00:00 [facility] Tramadol Propensity to adverse reactions to drug Active Rash, Itching, Palpitations 2011-10-11 00:00:00 [facility] Metolazone Propensity to adverse reactions to drug Active 2011-10-11 00:00:00 [facility] Family History Family Member Diagnosis Comments Start Date Stop Date Source Natural father Heart disease [place] [employer] father Liver disease [place] [employer] Natural father [facility] Natural mother Breast cancer [place] [employer] Natural mother COPD [place] [facility] mother Cancer [place] [facility] Natural mother Diabetes [place] [facility] Natural mother Heart disease [place] [employer] Natural mother [place]lipidemia [place] [employer] mother [facility] Natural [facility] Natural mother Hypothyroid [facility] Social History Social Habit Start Date Stop Date Quantity Comments Source Sex [facility]igned [facility] Alcohol intake 2016-02-01 00:00:00 2016-02-01 00:00:00 Current drinker of alcohol (finding) [facility] Alcohol Comment 2014-09-03 00:00:00 2014-09-03 00:00:00 occassional [facility] Smoking Status Start Date Stop Date Source Never smoker [facility] Medications Ordered Medication Name Filled Medication Name Start Date Stop Da te Current Medication? Ordering Clinician Indication Dosage Frequency Signature (SIG) Comments Components Source allopurinol (ZYLOPRIM) 300 MG tablet 2019-01-17 09:32:31 Ye s Daily- morning Chase Arcos clopidogrel (PLAVIX) 75 mg tablet 2019-01-17 09:32:31 Yes Daily Chase Arcos colchicine (COLCRYS) 0.6 mg tablet 2019-01-17 09:32:31 Yes As Needed Chase Arcos diphenhydrAMINE (BENADRYL) 25 mg capsule 2019-01-17 09:32:31 Yes Every 4 Hours as needed for Allergy Price Arcos gabapentin (NEURONTIN) 400 mg capsule 2019-01-17 09:32:31 Y es takes 3 tabs of 400mg TID Chase Arcos insulin GLARGINE (LANTUS SOLOSTAR U-100 INSULIN) 100 unit/mL injection (pen) 2019-01-17 09:32:31 Yes Take 60 Units in t he morning Chase Arcos lavender oil oil 2019-01-17 09:32:31 Yes Evelin ly Chase Arcos letrozole (FEMARA) 2.5 mg chemo tablet 2019-01-17 09:32:31 Yes Daily- morning Chase Arcos spironolactone (ALDACTONE) 25 MG tablet 2019-01-17 09:32:31 Yes 25mg QD Take 25 mg by mouth every morning. Price Arcos nitroglycerin (NITROSTAT) 0.4 MG SL tablet 2019-01-17 09:32:[address] 0.4 mg under the tongue every 5 (five) minutes a s needed for chest pain. Chase Arcos insulin lispro (HumaLOG) 100 unit/mL injection 2019-01-17 09:32: 31 Yes [id number] Inject under the skin 3 (thr ee) times a day before meals. Sliding scale Chase Arcos traZODone (DESYREL) 100 MG tablet 2019-01-17 09:32:31 Yes 100mg QD Take 100 mg by mouth nightly. Chase Barber st mirabegron (MYRBETIQ) 50 mg tablet extended release 24 hr 2019-01-17 09:32:31 Yes 50mg QD Take 50 mg by mouth every mornin g. Chase Arcos chlorzoxazone (PARAFON FORTE) 500 mg tablet 2019-01-17 09:32:31 Yes 500mg Q.5D Take 500 mg by mouth 2 (two) times a day. Chase Arcos HEParin, porcine, in 0.9% NaCl (HEParin Flush) 10 unit/mL ki t 2019-01-17 09:32:31 Yes Infuse into a venous catheter . Chase Arcos promethazine (PHENERGAN) 25 MG tablet 2019-01-17 09:32:31 Y es 25mg Q6H Take 25 mg by mouth every 6 (six) hours as needed for nausea or vomiting. Chase Arcos diphenoxylate-atropine (LOMOTIL) 2.5-0.025 mg per tablet 2019-01-17 09:32:31 Yes 1{tbl} Q.25D Take 1 tablet by mouth 4 (four) times a day as needed for diarrhea. Chase Arcos furosemide (LASIX) 20 mg tablet 2019-01-17 09:32:31 Yes 20mg QD Take 20 mg by mouth every morning. [facility] thyroid,pork (MANAGER STONE THYROID ORAL) 2019-01-17 09:32:31 Yes QD Take by mouth every morning. Takes 1.5 grains - ( one tab is 1 gr and the other tab is .5 Gr. ) Chase Arcos metoprolol tartrate (LOPRESSOR) 25 mg tablet 2019-01-17 09:32:31 Yes 25mg QD Take 25 mg by mouth every morning. Chase Arcos pantoprazole (PROTONIX) 40 MG EC tablet 2019-01-17 09:32:31 Yes 40mg Q.5D Take 40 mg by mouth 2 (two) times a day. Chase Arcos sucralfate (CARAFATE) 1 gram tablet 2019-01-17 09:32:31 Yes 1g Q.25D Take 1 g by mouth 4 (four) times a day. Chase Arcos losartan (COZAAR) 25 MG tablet 2018-10-28 00:00:00 Yes TK 1 T PO QD in the morning Chase Arcos temazepam (RESTORIL) 30 mg capsule 2018-10-24 00:00:00 Yes TK 2 C PO QHS Chase Arcos BD ULTRA-FINE OMAR PEN NEEDLE 32 gauge x 5/32" needle 2018-10-15 00:00:00 Yes USE UTD 5 TIMES A DAY Ron Arcos ONETOUCH DELICA LANCETS 30 gauge misc 2018-10-07 00:00:00 Y es U UTD TID Chase Arcos RANEXA 500 mg 12 hr ER tablet 2018-10-04 00:00:00 Yes TK 1 T PO BID Chase Arcos tiZANidine (ZANAFLEX) 4 MG tablet 2017-02-24 00:00:00 Yes 1{tbl} QD Take 1 tablet by mouth nightly. [place] [facility] losartan (COZAAR) 100 mg tablet 2016-08-12 00:00:00 Yes Essential hypertension, benign 100mg QD Take 1 tablet by mouth daily. [facility] temazepam (RESTORIL) 30 mg cap 2016-07-23 00:00:00 Yes Insomnia, unspecified TAKE 1 CAPSULE BY MOUTH EVERY DAY AT BEDTIME [facility] insulin lispro (HUMALOG) 100 unit/mL injection 2016-04-03 00 :00:00 Yes Controlled type 2 diabetes mellitus with insulin therapy Inject SQ per sliding scale TID - 10 units if sugars >200; 15 units if sugars >250; 20 units if sugars >300; 25 units if sugars >350. [facility] KLOR-CON 10 10 mEq extended release tablet 2016-03-31 00:00: 00 Yes Diuretic-induced hypokalemia TAKE ONE (1) TABLET(S) BY MOUTH ONCE A DAY. [facility] amLODIPine (NORVASC) 5 mg tablet 2016 00:00:00 Yes Essential hypertension TAKE ONE (1) TABLET(S) BY MOUTH ONCE A DAY. [facility] budesonide-formoterol (SYMBICORT) 160-4.5 mcg/actuation inha ler 2016-02-01 14:22:08 Yes 2{puff} Q.5D Inhale 2 Puffs by mouth 2 ti mes daily. [facility] CALCIUM CARBONATE/VITAMIN D3 (CALCIUM 600 + D,3, OR) 2 14:22:08 Yes Take by mouth. [facility]th diphenhydrAMINE (BENADRYL) 25 mg capsule 2016-02-01 14:22:08 Yes 50mg Take 50 mg by mouth every 4 hours as needed for Itching. [facility] diphenoxylate-atropine (LOMOTIL) 2.5-0.025 mg per tablet 2016-02-01 14:22:08 Yes 1{tbl} Take 1 tablet by mouth 3 times d aily. [facility] furosemide (LASIX) 40 mg tablet 2016-02-01 00:00:00 Yes Localized edema 40mg QD Take 1 tablet by mouth daily. [facility] blood glucose test strips 2016-01-16 00:00:00 Yes Diabetes type 2, controlled 5 times daily to test blood suga r on insulin. TRUE TEST STRIPS.. [facility] insulin glargine (LANTUS) 100 unit/mL injection 2016-01-16 0 0:00:00 Yes Diabetes type 2, controlled 50U QD Inject 50 Un its under the skin daily PLEASE GIVE TWO VIALS - 1 VIAL NOT ENOUGH FOR ONE MONTH.. [facility] insulin aspart (NOVOLOG) 100 unit/mL injection 2015-11-16 00 :00:00 Yes Diabetes type 2, controlled 20U Inject 20 Un its under the skin 3 times daily Needing to inject 20 units under the skin three times daily for postprandial glucose spike. [facility] INSULIN SYRINGE 0.5mL 30GX5/16" (MONOJEC T ULTRACOMFORT INSULIN SYR 0.5ML 30GX5/16") syringe-needle 2015-11-16 00:00:00 Yes Diabetes type 2, controlled Use to inject medica tion 4 times a day. Use a new syringe each time. [facility] blood glucose meter 2015-11-16 00:00:00 Yes Diabetes type 2, controlled Use as directed. TRUE TEST. [facility] clotrimazole (LOTRIMIN) 1 % external solution 2015-11-15 00: 00:00 Yes Fungal toenail infection Apply 1-2 drops to affected nails 2 times a day. Use a nail file to keep nails thin. Treatment may take up to 1 year. [facility] clopidogrel (PLAVIX) 75 mg tablet 2015-11-07 00:00:00 Yes Coronary artery disease involving rosebud coronary artery of rosebud heart without angina pectoris 75mg QD Take 1 tablet by mouth daily. [facility] cyclobenzaprine (FLEXERIL) 10 mg tablet 2015-10-20 00:00:00 Yes Fibromyalgia 10mg Take 1 tablet by tenisha th nightly at bedtime as needed for Muscle Spasms. [facility] isosorbide mononitrate (IMDUR) 30 mg extended release tablet 2015-10-19 00:00:00 Yes CAD (coronary artery disease) Take 2 tablets by mouth once a day. [facility] LACTULOSE OR 2015-10-12 18:04:27 Yes Take by mouth. [facility] levothyroxine (SYNTHROID) 175 mcg tablet 2015-10-12 18:04:27 Yes 175ug QD Take 175 mcg by mouth daily. [facility] furosemide (LASIX) 20 mg tablet 2015-09-14 00:00:00 Yes CAD (coronary artery disease) 20mg QD Take 1 tablet by mouth daily. [facility] metoprolol tartrate (LOPRESSOR) 50 mg tablet 2015-08-23 00:0 0:00 Yes Coronary artery disease involving rosebud coronary artery of rosebud heart without angina pectoris Take 1 tablet by mouth twice a day. [facility] gabapentin (NEURONTIN) 300 mg capsule 2015-08-23 00:00:00 Yes Diabetic polyneuropathy associated with type 2 diabetes mellitus 900mg Take 3 capsules by mouth 3 times daily for 90 days. [facility] promethazine (PHENERGAN) 25 mg tablet 2015-08-21 00:00:00 Yes Nausea 25mg Take 1 tablet by mouth every 8 hours as needed for Nausea or Vom iting. [facility] tiZANidine (ZANAFLEX) 4 mg tablet 2015-06-15 00:00:00 Yes Insomnia, unspecified insomnia 4mg Take 1 tablet by mouth at bedtime nig htly. [facility] zafirlukast (ACCOLATE) 20 mg tablet 2015-06-15 00:00:00 Yes Allergic asthma with stated cause 20mg Q.5D Take 1 tablet by mouth 2 times da ward. [facility] hydrOXYzine (ATARAX) 50 mg tablet 2015-04-20 00:00:00 Yes Aspirin sensitivity 100mg Take 2 tablets by [facility] every 6 hours as needed for Itching. [facility] EPINEPHrine (EPIPEN) 0.3 mg/0.3 mL (1:1,000) injection 2015-04-20 00:00:00 Yes Aspirin sensitivity .3mg Inject 0 .3 mL intramuscularly as needed for Anaphylaxis. [facility] albuterol (PROVENTIL) 2.5 mg /3 mL (0.083 %) nebulizer solut ion 2015-04-14 00:00:00 Yes Shortness of breath 2.5mg Inhale 3 mL by mouth via nebulizer every 4 hours as needed for Wheezing or Shortness of Breath. [facility] beclomethasone (QVAR) 80 mcg/actuation inhaler 2015-04-14 00 :00:00 Yes Shortness of breath 2{puff} Q.5D Inhale 2 Puffs by mouth 2 times daily. [facility] ipratropium (ATROVENT HFA) 17 mcg/actuation inhaler 02-28 00:00:00 Yes Asthmatic bronchitis 2{puff} Inhale 2 Puffs by mouth 4 donavon es daily. [facility] fenofibrate nanocrystallized (TRICOR) 48 mg tablet 2015-02 00:00:00 Yes Hyperlipidemia 48mg QD Take 1 tablet by mouth daily. [facility] ipratropium (ATROVENT) 0.02 % nebulizer solution 2014-08-04 00:00:00 Yes Allergies, Drug .5mg Inhale 2.5 mL by mouth 6 times daily. [facility] nitroGLYCERIN (NITROSTAT) 0.4 mg sublingual tablet 2014-07 00:00:00 Yes CAD (coronary artery disease) Di ssolve 1 tablet under the tongue every 5 minutes (up to 3 doses) as needed for chest pain. If no relief, call 911 [facility] Nebulizer & Compressor For Neb Asha 2014-05-17 00:00:00 Yes Bronchospasms by Misc.(Non-Drug; Combo Route) route. [facility] albuterol (PROVENTIL HFA) 90 mcg/actuation inhaler 2014-02 00:00:00 Yes Asthma 2{puff} Inhale 2 Puffs b y mouth every 4 hours as needed for Wheezing or Shortness of Breath. [facility] lancets (TRUEPLUS LANCETS) 28 gauge 2014-02-14 00:00:00 Yes DMII (diabetes mellitus, type 2) by MISCELLANEOUS route 4 times weekly. [facility] metoprolol (TOPROL-XL) 100 MG 24 hr tablet 2013-12-29 00:00:00 Yes 150mg QD Take 1.5 tablets (150 mg total) by mouth nightly. [facility] tiZANidine (ZANAFLEX) 4 MG tablet 2013-12-29 00:00:00 Yes 2mg QD Take 0.5 tablets (2 mg total) by mouth daily. [facility] insulin detemir 100 unit/mL (3 mL) InPn 2013-12-04 22:07:21 Yes type 2 diabetes mellitus 10U QD Inject 10 Units subcutaneously every mor myke. [facility] budesonide (PULMICORT FLEXHALER) 180 mcg/actuation inhaler 2013-12-04 22:07:21 Yes 2{puff} Q.5D Inhale 2 puffs by mouth via inhaler 2 (two[facility] ZOL[facility]/MANNITOL&WATER (RECLAST IV) 2013-10-10 10:09:51 Yes Inject intravenously. yearly [facility] dexlansoprazole 60 mg capsule 2013-10-05 15:31:15 Yes 60mg Q.5D Take 60 mg by mouth 2 (two) times daily. [facility] furosemide (LASIX) 20 MG tablet 2013-10-05 15:31:15 Yes 40mg QD Take 40 mg by mouth daily. [facility] buprenorphine 10 mcg/hour PTWK 2013-10-05 15:31:15 Yes 15ug/h Place 15 mcg/hr onto the skin every 7 days. [facility] MAGNESIUM CITRATE ORAL 2013-10-05 15:31:15 Yes 250mg Q.[id number] Take 250 mg by mouth 3 (three) times daily. [facility] docusate sodium (COLACE) 100 MG capsule 2013-10-05 15:31:14 Yes 100mg Q.5D Take 100 mg by mouth 2 (two) times daily. [facility] ondansetron (ZOFRAN) 4 MG tablet 2013-10-05 15:31:14 Yes 4mg Take 4 mg by mouth 4 (four) times daily as needed. [facility] diphenoxylate-atropine (LOMOTIL) 2.5-0.025 mg per tablet 2013-10-05 15:31:14 Yes 1{tbl} Take 1 tablet by mouth 3 (three) times daily as needed. [facility] zolpidem (AMBIEN) 10 mg tablet 2013-10-05 15:31:14 Yes 10mg Take 10 mg by mouth every night as needed. [facility] cholecalciferol, vitamin D3, 2,000 unit Tab 2013-08-05 12:25:22 Yes 2000U Q.5D Take 2,000 Units by mouth 2 (two) times daily. [facility] chlorthalidone (HYGROTEN) 25 MG tablet 2013-08-05 12:25:22 Yes 25mg QD Take 25 mg by mouth daily. [facility] promethazine (PHENERGAN) 25 MG tablet 2013-08-05 12:25:22 Y es 25mg Take 25 mg by mouth every 4 (four) hours as needed. [facility] glimepiride (AMARYL) 2 MG tablet 2013-07-29 11:41:12 Yes 4mg Q.5D Take 4 mg by mouth 2 (two) times daily. [facility] sucralfate (CARAFATE) 1 g tablet 2013-05-25 02:32:20 Yes 1g Take 1 g by mouth 4 (four) times daily as needed. [facility] lactulose (CEPHULAC) 20 gram packet 2013-05-25 02:32:20 Yes 20g Take 20 g by mouth every 6 (six) hours as needed. [facility] potassium chloride (KLOR-CON) 10 MEQ CR tablet 2013-05-24 20:27: 59 Yes 10meq Q.5D Take 10 mEq by mouth 2 (two) times daily. [facility] saxagliptin 5 mg Tab 2013-05-24 20:27:59 Yes 5mg QD Take 5 mg by mouth daily. [facility] milnacipran (SAVELLA) 50 mg Tab 2013-05-24 20:27:59 Yes 50mg Q.5D Take 50 mg by mouth 2 (two) times daily. [facility] calcium carbonate (TUMS) 500 mg chewable tablet 2013-05-24 20:27 :59 Yes 1{tbl} Q.[id number] Take 1 tablet by mouth 3 (three) times daily . [facility] albuterol (VENTOLIN HFA) 90 mcg/actuation inhaler 2013-05-24 20:27:59 Yes 1{puff} Inhale 1 puff by mouth via inhaler every 6 (six) hours as needed. [facility] multivitamin capsule 2013-05-24 20:27:59 Yes 1{capsule} QD Take 1 capsule by mouth daily. [facility] losartan (COZAAR) 100 MG tablet 2013-05-24 20:18:31 Yes 100mg QD Take 100 mg by mouth daily. [facility] [place] dicyclomine (BENTYL) 20 mg tablet 2013-05-24 20:18:30 Yes 20mg Take 20 mg by mouth every 6 (six) hours. [facility] linaclotide (LINZESS) 290 mcg Cap 2013-05-24 20:18:30 Yes 290ug QD Take 290 mcg by mouth daily. [facility] Allopurinol Allopurinol Yes 300 Daily [facility] Chlorzoxazone Chlorzoxazone Yes 500 Twice A Day [facility] Clopidogrel Bisulfate (Clopidogrel) 75 Mg TABLET Clopi dogrel Bisulfate (Clopidogrel) 75 Mg TABLET Yes 75 Daily [facility] Colchicine (Colcrys) 0.6 Mg TABLET Colchicine (Colcrys) 0.6 Mg TABLET Yes .6 Daily as needed for .joint Pain [facility] Diphenhydramine Hcl (Benadryl) 25 Mg CAPSULE Diphenhyd ramine Hcl (Benadryl) 25 Mg CAPSULE Yes 50 Every 4 Hours as needed for Allergy [facility] Diphenoxylate Hcl/Atropine (Lomotil Tablet) 1 Each TAB LET Diphenoxylate Hcl/Atropine (Lomotil Tablet) 1 Each TABLET Yes 1 Every 6 Hours as needed for Diarrhea [facility] Fluticasone/Vilanterol (Breo Ellipta 100-25 Mcg Inh) 1 Each BLST.W.DEV Fluticasone/Vilanterol (Breo Ellipta 100-25 Mcg Inh) 1 Each BLST.W.DEV Yes 1 Before Breakfast [facility] Furosemide Furosemide Yes 40 Daily [facility] Gabapentin Gabapentin Yes 1200 Three Times A Day [facility] Insulin Glargine (Lantus 3ML Pen) 100 Units/1 Ml INJ I nsulin Glargine (Lantus 3ML Pen) 100 Units/1 Ml INJ Yes 60 Bedtime [facility] Insulin Lispro (Humalog) 100 Unit/1 Ml CARTRIDGE Insul in Lispro (Humalog) 100 Unit/1 Ml CARTRIDGE Yes Thre e Times Daily With Meals as needed for Blood Sugar [facility] Lavender Oil Lavender Oil Yes 30 Daily [facility] Letrozole Letrozole Yes 2.5 Daily [facility] Losartan Potassium Losartan Potassium Yes 12.5 Da ward [facility] Metoprolol Tartrate Metoprolol Tartrate Yes 12.5 Daily [facility] Midodrine Hcl Midodrine Hcl Yes 2.5 Three Times A Day [facility] Mirabegron (Myrbetriq) 50 Mg TAB.ER.24H Mirabegron (Myrbetri q) 50 Mg TAB.ER.24H Yes 50 Daily [facility] Nitroglycerin Nitroglycerin Yes .4 Every 5 Minutes as needed for Chest Pain [facility] Pantoprazole Sodium (Protonix) 40 Mg TABLET. Pantopr azole Sodium (Protonix) 40 Mg TABLET. Yes 40 Twice A Day C [facility] Promethazine Hcl Promethazine Hcl Yes 25 Every 4 Hours as needed for Nausea [facility] Ranolazine (Ranexa) 500 Mg TABSR Ranolazine (Ranexa) 500 Mg TABSR Yes 1000 Twice A Day [facility] Spironolactone Spironolactone Yes 25 Daily [facility] Sucralfate Sucralfate Yes 1 Before Meals And A t Bedtime [facility] Temazepam Temazepam Yes 30 Bedtime as needed fo r Sedation [facility] Thyroid,Pork ([place] Thyroid) 120 Mg TABLET Thyroid,Po rk ([place] Thyroid) 120 Mg TABLET Yes 210 Daily [facility] Tizanidine Hcl Tizanidine Hcl Yes 4 Da ward as needed for Muscle Spasms [facility] Trazodone Hcl Trazodone Hcl Yes 150 Bedtime as n eeded for Sleep [facility] Ascorbic Acid (Vitamin C) 500 Mg TABLET Ascorbic Acid (Vitam in C) 500 Mg TABLET 2019-10-23 00:00:00 No 500 Bedtime [facility] Cholecalciferol (Vitamin D3) (Vitamin D3) 5,000 Unit C APSULE Cholecalciferol (Vitamin D3) (Vitamin D3) 5,000 Unit CAPSULE 2019-04-23 00:00:00 No [id number] Daily [facility] Chromium Picolinate Chromium Picolinate 2019-04-23 00:00:00 No 2 Daily [facility] Clopidogrel Bisulfate (Plavix) 75 Mg TABLET Clopidogre l Bisulfate (Plavix) 75 Mg TABLET 2019-04-23 00:00:00 No 75 Daily [facility] Eye Health Eye Health 2019-04-23 00:00:00 No 1 Evelin ly [facility] Ferrous Sulfate Ferrous Sulfate 2019-04-23 00:00:00 No 65 Bedtime [facility] Furosemide Furosemide 2019-04-23 00:00:00 No 40 Use As Directed [facility] Gabapentin Gabapentin 2019-04-23 00:00:00 No 900 Thr ee Times A Day [facility] Levothyroxine Sodium Levothyroxine Sodium 2019-04-23 00:00:00 No 150 Daily [facility] Liothyronine Sodium Liothyronine Sodium 2019-04-23 00:00:00 No 25 Daily [facility] Magnesium Oxide Magnesium Oxide 2019-04-23 00:00:00 No 400 Bedtime [facility] Phenazopyridine Hcl Phenazopyridine Hcl 2019-04-23 00:00:00 No 200 Three Times A Day as needed for Urinary Spasms [facility] Tea Tree Oil Tea Tree Oil 2019-04-23 00:00:00 No 30 Daily [facility] Trazodone Hcl Trazodone Hcl 2019-04-23 00:00:00 No 100 Bedtime as needed for Sleep [facility] Ubidecarenone (Coq-10) 100 Mg CAPSULE Ubidecarenone (Coq-10) 100 Mg CAPSULE 2019-04-23 00:00:00 No 400 Bedtime [facility] Allopurinol Allopurinol 2017-12-22 00:00:00 No 300 D aily [facility] Insulin Glargine (Lantus 3ML Pen) 100 Units/1 Ml INJ I nsulin Glargine (Lantus 3ML Pen) 100 Units/1 Ml INJ 2017-12-22 00:00:00 No 30 Bedtime [facility] Isosorbide Mononitrate (Isosorbide Mononitrate Er) 30 Mg TAB.ER.24H Isosorbide Mononitrate (Isosorbide Mononitrate Er) 30 Mg TAB.ER.24H 201 03-21-08 00:00:00 No 60 Daily [facility] Isosorbide Mononitrate (Isosorbide Mononitrate Er) 30 Mg TAB.ER.24H Isosorbide Mononitrate (Isosorbide Mononitrate Er) 30 Mg TAB.ER.24H 201 03-21-08 00:00:00 No 30 Bedtime [facility] Levothyroxine Sodium (Synthroid) 125 Mcg TAB Levothyro xine Sodium (Synthroid) 125 Mcg TAB 2017-12-22 00:00:00 No 125 Today At 6:3 0AM [facility] Losartan Potassium Losartan Potassium 2017-12-22 00:00:00 No 25 Daily [facility] Magnesium Oxide Magnesium Oxide 2017-12-22 00:00:00 No 400 Daily [facility] Metronidazole (Flagyl) 250 Mg TABLET Metronidazole (Flagyl) 250 Mg TABLET 2017-12-22 00:00:00 No 500 Three Times A Day [facility] Promethazine Hcl Promethazine Hcl 2017-12-22 00:00:00 No 25 Every 6 Hours as needed for Nausea [facility] Cranberry Cranberry 2017-12-01 00:00:00 No 1 Daily [facility] Nitrofurantoin Macrocrystal (Nitrofurantoin) 100 Mg CA PSULE Nitrofurantoin Macrocrystal (Nitrofurantoin) 100 Mg CAPSULE 2017-12-01 00:00:00 No 100 Twice A Day [facility] Amlodipine Besylate Amlodipine Besylate 2017-11-17 00:00:00 No 2.5 Twice A Day [facility] Hydrochlorothiazide Hydrochlorothiazide 2017-11-17 00:00:00 No 25 Daily [facility] Insulin Lispro (Humalog) 100 Unit/1 Ml INSULN.PEN Insu nilsa Lispro (Humalog) 100 Unit/1 Ml INSULN.PEN 2017-11-17 00:00:00 No Bef ore Meals [facility] Isosorbide Mononitrate Isosorbide Mononitrate 2017-11-17 00:00:00 No 60 Twice A Day [facility] Omeprazole Omeprazole 2017-11-17 00:00:00 No 40 Evelin ly [facility] Temazepam Temazepam 2017-10-02 00:00:00 No 15 Bedti me [facility] Insulin Glargine (Lantus 3ML Pen) 100 Units/1 Ml INJ I nsulin Glargine (Lantus 3ML Pen) 100 Units/1 Ml INJ 2017-08-25 00:00:00 No Before Meals [facility] Immunizations Ordered Immunization Name Filled Immunization Name Date Status Comments Source PPV 23 Pneumococcal Polysaccaride 2010-12-16 00:00:00 Comp [facility] Vital Signs Vital Name Observation Time Observation Value Comments Source Body Temperature 2020-03-06 15:37:00 98.2 [degF] [facility] BMI (Body Mass Index) 2020-03-06 00:42:00 42.0 kg/m2 [facility] Weight 2020-03-04 04:12:00 260 [lb_av] [facility] Procedures Procedure Date / Time Performed Performing Clinician [facility] e CT of abdomen and pelvis without contrast 2020-03-04 00:00:00 [facility] X-ray of chest, two views 2019-10-25 00:00:00 KRISTY RODRIGUEZ [facility] X-ray of chest, two views 2019-09-04 00:00:00 JULIANA REID [facility] Plan of Care Planned Activity Planned Date Details Comments Source Future Scheduled Test 2020-05-17 00:00:00 IMM Influenza Seas onal May to October (>/= 19 yrs) [code = IMM Influenza Seasonal May to October (>/= 19 yrs)] [facility] Scheduled Test 2020-03-17 00:00:00 INFLUENZA VACCINE [code = INFLUENZA VACCINE] [facility] Scheduled Test 2019-01-15 00:00:00 Screening for kevin gnant neoplasm of colon (procedure) [code = 343944725] [facility] Scheduled Test 2017-02-18 00:00:00 CORONARY ARTERY DI SEASE AGE 18 AND UP [code = CORONARY ARTERY DISEASE AGE 18 AND UP] [facility] Scheduled Test 2017-02-18 00:00:00 Hemoglobin A1c polly surement (procedure) [code = [id number]] [facility] Scheduled Test 2016-10-03 00:00:00 Breast Cancer Scrn (Yearly) [code = Breast Cancer Scrn (Yearly)] [facility] Scheduled Test 2016-09-21 00:00:00 DM Foot Exam (Year ly) [code = DM Foot Exam (Yearly)] [facility] Scheduled Test 2016-06-22 00:00:00 DM Retinal Exam (Y early) [code = DM Retinal Exam (Yearly)] [facility] Scheduled Test 2016 00:00:00 65+ PNEUMOCOCCAL V ACCINE (1 of 2 - PCV13) [code = 65+ PNEUMOCOCCAL VACCINE (1 of 2 - PCV13)] [facility] [facility] Scheduled Test 2016 00:00:00 IMM Pneumococcal A ge 65 and Up [code = IMM Pneumococcal Age 65 and Up] [facility] Scheduled Test 2001 00:00:00 BREAST CANCER SCRE ENING [code = BREAST CANCER SCREENING] [facility] Scheduled Test 2001 00:00:00 COLONOSCOPY SCREEN ING [code = COLONOSCOPY SCREENING] [facility] Scheduled Test 2001 00:00:00 SHINGLES VACCINES (#1) [code = SHINGLES VACCINES (#1)] [facility] Future Scheduled Test 1961 00:00:00 DIABETIC FOOT EXAM [code = DIABETIC FOOT EXAM] [facility] Scheduled Test 1951 00:00:00 DIABETIC RETINAL E YE EXAM [code = DIABETIC RETINAL EYE EXAM] [facility] Abdominal Pain - Adult [facility] Encounters Start Date/Time End Date/Time Encounter Type Admission Type Attendi [facility] Care Department Encounter ID Source 2019-10-23 20:51:00 2019-10-26 19:07:00 Discharged Inpatient 1 DIXON RODRIGUEZAHAM [facility] [id number] [facility] 2019-10-05 07:14:00 2019-10-05 07:14:00 Registered Clinic 3 DIXON RODRIGUEZAHAM [facility] [id number] [facility] 2019-09-04 11:47:00 2019-09-06 20:14:00 Discharged Inpatient (obs) 1 BOSTON SALEEM [facility] [id number] [facility] I [facility] 2019-08-24 10:06:00 2019-08-24 10:06:00 Outpatient MHSE CAR [id number] [facility] 2019-04-25 13:28:00 2019-04-27 14:38:00 Discharged Inpatient 1 CADE FORDE [facility] [id number] [facility] 2019-01-14 13:35:00 2019-01-14 13:35:00 Registered Clinic 3 DIXON RODRIGUEZAHAM [facility] [id number] [facility] 2017-12-21 10:56:00 2017-12-21 14:58:00 Departed Emergency Room ER NESSA BAUTISTA [facility] [id number] [facility] 2017-11-30 22:06:00 2017-12-04 12:36:00 Discharged Inpatient (obs) ER NIRALI CONTRERAS [facility] [id number] [facility] 2017-11-17 10:41:00 2017-11-17 10:41:00 Registered Surgical Day Car FADUMO Martinez [facility] [id number] [facility] 2017-10-29 20:57:00 2017-10-30 03:24:00 Departed Emergency Room [facility] [id number] [facility] 2017-10-14 20:32:00 2017-10-17 12:23:00 Discharged Inpatient (obs) ER NIRALI CONTRERAS [facility] [id number] [facility] 2017-10-06 10:35:00 2017-10-06 15:26:00 Departed Emergency Room ER NIRALI VALDEZ [facility] [id number] [facility] 2017-10-02 10:16:00 2017-10-02 10:16:00 Registered Surgical Day Care [facility] [id number] [facility] 2017-09-17 08:53:00 2017-09-17 08:53:00 Registered Clinic NUNU VIEYRA [facility] [id number] [facility] 2017-08-26 05:09:00 2017-08-26 05:09:00 Registered Surgical Day Car taras CHAVIRA [facility] [id number] [facility] 2017-06-17 13:35:00 2017-06-17 13:35:00 Registered Clinic NUNU VIEYRA [facility] [id number] [facility] Results Test Description Test Time Test Comments Results Result Comments Source Capillary blood glucose measurement by glucometer (mas s/volume) 2020-03-06 07:44:00 Test Item Bedside Glucose (test code = 97826-2) 85 70-120 Meter ID: [id number] [facility]neyBlood leukocytes automated count (number/volume)2020-03-06 07:00:00* Test Item Value Reference Range Interpretation Comments White Blood Count (test code = 6690-2) 7.23 4.8-10.8 [facility] erythrocytes automated count (number/volume)2020-03-06 07:00:00* Test Item Value Reference Range Interpretation Comments Red Blood Count (test code = 789-8) 3.58 3.6-5.1 [facility]ney[facility] hemoglobin measurement (moles/volume)2020-03-06 07:00:00* Test Item Value Reference Range Interpretation Comments Hemoglobin (test code = 35078-3) 11.4 12.0-16.0 [facility] McKinneyAutomated blood hematocrit (volume fraction)2020-03-06 07:00:00* Test Item Value Reference Range Interpretation Comments Hematocrit (test code = 4544-3) 35.7 34.2-44.1 [facility] McKinneyAutomated erythrocyte mean corpuscular [id number] 07:00:00* Test Item Value Reference Range Interpretation Comments Mean Corpuscular Volume (test code = 787-2) 99.7 81-99 [facility]neyAutomated erythrocyte mean corpuscular hemoglobin (mass per erythrocyte)2020-03-06 07:00:00* Test Item Value Reference Range Interpretation Comments Mean Corpuscular Hemoglobin (test code = 785-6) 31.8 28-32 [facility]neyAutom[facility] erythrocyte mean corpuscular hemoglobin concentration measurement (mass/volume)2020-03-06 07:00:00* Test Item Value Reference Range Interpretation Comments Mean Corpuscular Hemoglobin Concent (test code = 786-4) 31.9 31-35 [facility] McKinneyRDW WgyQz-Tsi1786-68-21 07:00:00* Test Item Value Reference Range Interpretation Comments Red Cell Distribution Width (test code = 66419-1) 14.3 11.7 -14.4 [facility] McKinneyAutomated blood platelet count (count/volume)2020-03-06 07:00:00* Test Item Value Reference Range Interpretation Comments Platelet Count (test code = 777-3) 225 140-360 [facility] McKinneyAutomated blood segmented neutrophil count as percentage of total lywjnzuwwz8917-36-32 07:00:00* Test Item Value Reference Range Interpretation Comments Neutrophils (%) (Auto) (test code = 60557-3) 66.2 38.7-80.0 [facility] McKinneyAutomated blood lymphocyte count as percentage ot total potalcgrqa9491-92-88 07:00:00* Test Item Value Reference Range Interpretation Comments Lymphocytes (%) (Auto) (test code = 736-9) 20.3 18.0-39.1 [facility] McKinneyAutom[facility] blood monocyte count as percentage of total skmtipsfcm3822-17-20 07:00:00* Test Item Value Reference Range Interpretation Comments Monocytes (%) (Auto) (test code = 5905-5) 10.8 4.4-11.3 [facility] McKinneyAutom[facility] blood eosinophil count as percentage of total wtodznkbuj0657-93-28 07:00:00* Test Item Value Reference Range Interpretation Comments Eosinophils (%) (Auto) (test code = 713-8) 1.7 0.0-6.0 [facility] McKinneyAutom[facility] blood basophil count as percentage of total zqbnhckgwd2751-05-92 07:00:00* Test Item Value Reference Range Interpretation Comments Basophils (%) (Auto) (test code = 706-2) 0.6 0.0-1.0 [facility] McKinneyFluoroscopic procedure less than one hour nhnvwbpz3537-86-37 07:00:00* Test Item Value Reference Range Interpretation Comments IM GRANULOCYTES % (test code = IM GRANULOCYTES %) 0.4 0.0- 1.0 [facility] McKinneyAutomated blood neutrophil count 2020-03-06 07:00:00* Test Item Value Reference Range Interpretation Comments Neutrophils # (Auto) (test code = 751-8) 4.8 2.1-6.9 [facility]neyBlood lymphocytes count (number/volume) 2020-03-06 07:00:00* Test Item Value Reference Range Interpretation Comments Lymphocytes # (Auto) (test code = 96899-4) 1.5 1.0-3.2 [facility]neyBlood monocytes automated count (number/volume)2020-03-06 07:00:00* Test Item Value Reference Range Interpretation Comments Monocytes # (Auto) (test code = 742-7) 0.8 0.2-0.8 [facility] McKinneyAutomated blood eosinophil count 2020-03-06 07:00:00* Test Item Value Reference Range Interpretation Comments Eosinophils # (Auto) (test code = 711-2) 0.1 0.0-0.4 [facility] McKinneyAutomated blood basophil count (count/volume)2020-03-06 07:00:00* Test Item Value Reference Range Interpretation Comments Basophils # (Auto) (test code = 704-7) 0.0 0.0-0.1 [facility] McKinneyFluoroscopic procedure less than one hour myeilxit9137-91-82 07:00:00* Test Item Value Reference Range Interpretation Comments Absolute Immature Granulocyte (auto (tk t code = Absolute Immature Granulocyte (auto) 0.03 0-0.1 [facility] sodium measurement (moles/volume)2020-03-06 07:00:00* Test Item Value Reference Range Interpretation Comments Sodium Level (test code = 2951-2) 134 136-145 [facility] potassium measurement (moles/volume)2020-03-06 07:00:00* Test Item Value Reference Range Interpretation Comments Potassium Level (test code = 2823-3) 3.7 3.5-5.1 [facility] or plasma chloride measurement (moles/volume)2020-03-06 07:00:00* Test Item Value Reference Range Interpretation Comments Chloride Level (test code = 2075-0) 98 98-107 [facility] or plasma carbon dioxide, total measurement (moles/volume)2020-03-06 07:00:00* Test Item Value Reference Range Interpretation Comments Carbon Dioxide Level (test code = 2028-9) 24 22-29 [facility] or plasma anion paz4559-86-21 07:00:00* Test Item Value Reference Range Interpretation Comments Anion Gap (test code = 72124-1) 15.7 8-16 [facility] plasma urea nitrogen measurement (mass/volume)2020-03-06 07:00:00* Test Item Value Reference Range Interpretation Comments Blood Urea Nitrogen (test code = 3094-0) 23 7-26 [facility] or plasma creatinine measurement (mass/volume)2020-03-06 07:00:00* Test Item Value Reference Range Interpretation Comments Creatinine (test code = 2160-0) 1.47 0.57-1.11 [facility] or plasma urea nitrogen/creatinine mass yryed1569-50-17 07:00:00* Test Item Value Reference Range Interpretation Comments BUN/Creatinine Ratio (test code = 3097-3) 16 6-25 [facility] McKinneyEstimated glomerular filtration rate (GFR) efofgddtyrbmq4536-80-33 07:00:00* Test Item Value Reference Range Interpretation Comments Estimat Glomerular Filtration Rate (test code = 399767871) 35 >60 Ranges were taken from the National Kidney Disease Education Program and the [facility] literature.Reference ranges:60 or greater: Ttaxkh71-54 ( for 3 consecutive months): Chronic kidney disease 15 or less: Kidney failureBaylor Scott & White Medical Center – McKinneyGlucose omzpitogpnh8501-50-33 07:00:00* Test Item Value Reference Range Interpretation Comments Glucose Level (test code = LWW3732) 73 74-118 [facility] or plasma calcium measurement (mass/volume)2020-03-06 07:00:00* Test Item Value Reference Range Interpretation Comments Calcium Level (test code = 41705-3) 8.5 8.4-10.2 [facility] McKinneyPhosphorus jkjudtyssyn7443-72-38 07:00:00 * Test Item Value Reference Range Interpretation Comments Phosphorus Level (test code = JII7471) 4.0 2.3-4.7 [facility] or plasma magnesium measurement (mass/volume)2020-03-06 07:00:00* Test Item Value Reference Range Interpretation Comments Magnesium Level (test code = 96255-3) 1.2 1.3-2.1 [facility] or plasma total bilirubin measurement (mass/volume)2020-03-06 07:00:00* Test Item Value Reference Range Interpretation Comments Total Bilirubin (test code = 1975-2) 0.8 0.2-1.2 [facility] McKinneyFluoroscopic procedure less than one hour orbittsq4511-10-20 07:00:00* Test Item Value Reference Range Interpretation Comments Aspartate Amino Transf (AST/SGOT) (test code = Aspartate Amino Transf (AST/SGOT)) 35 5-34 [facility] or plasma alanine aminotransferase measurement (enzymatic activity/volume)2020-03-06 07:00:00* Test Item Value Reference Range Interpretation Comments Alanine Aminotransferase (ALT/SGPT) (test code = 1742-6) 28 0-55 [facility] or plasma protein measurement (mass/volume)2020-03-06 07:00:00* Test Item Value Reference Range Interpretation Comments Total Protein (test code = 2885-2) 6.7 6.5-8.1 [facility] albumin measurement (mass/volume)2020-03-06 07:00:00* Test Item Value Reference Range Interpretation Comments Albumin (test code = 1751-7) 3.5 3.5-5.0 [facility] McKinneyPlasma globulin measurement (mass/volume) 2020-03-06 07:00:00* Test Item Value Reference Range Interpretation Comments Globulin (test code = 87145-0) 3.2 2.3-3.5 [facility] or plasma albumin/globulin mass sdqsm7045-77-55 07:00:00* Test Item Value Reference Range Interpretation Comments Albumin/Globulin Ratio (test code = 1759-0) 1.1 0.8-2.0 [facility] plasma alkaline phosphatase measurement (enzymatic activity/volume)2020-03-06 07:00:00* Test Item Value Reference Range Interpretation Comments Alkaline Phosphatase (test code = 6768-6) 95 40-150 [facility] McKinneyCT ABDOMEN/PELVIS [id number] 06:22:00 [facility] [address] [address] Patient Name: RODGER NICHOLS MR #: [id number] : 1950 Age/[facility]: 69[facility]F [id number] Req #: [id number] Adm Physician: KRISTY RODRIGUEZ MD Ordered by: NEFTALY MONROY MD Report #: [id number] Location: MED/SURG2 Room/Bed: [facility] Procedure: [id number] CT/C T ABDOMEN/PELVIS WO Exam Date: 03/04/20 Exam Time: 0 611 REPORT STATUS: Signed EXAMIN ATION: CT of the abdomen and pelvis without contrast. TECHNIQUE: Spiral CT images of the abdomen and pelvis were performed from the lung bases to the le sser trochanters. No intravenous contrast was given due to history of iodine allergy. Dilute Gastrografin was given as oral contrast. Coronal and sagittal reformatted images were obtained. COMPARISON: None. CLINICAL HISTORY :Nausea, vomiting, diarrhea DISCUSSION: ABSENCE OF INTRAVENOUS CONTRAS T DECREASES SENSITIVITY FOR DETECTION OF FOCAL LESIONS AND VASCULAR PATHOLOGY. ABDOMEN/PELVIS: LOWER THORAX: Distal portion of cardiac wires noted in the right atrium and right ventricle. Atherosclerotic calcification of the c oronary arteries. Linear opacities in bilateral lower lobes, likely reflect carreno bsegmental atelectasis or scarring. Mild left posterior basal pleural thickeni ng. HEPATOBILIARY: Decreased attenuation of the hepatic parenchyma, predomi nantly in the right lobe, consistent with steatosis. No focal lesions. No i ntrahepatic biliary ductal dilation. The common bile duct is moderately dilate d, measuring 1.5 cm at the rasta hepatis. No radiopaque intraluminal filling d efects. GALLBLADDER: Cholecystectomy clips. SPLEEN: No splenomega ly. PANCREAS: No focal masses or ductal dilatation. Fatty replacement of th e pancreas. ADRENALS: No adrenal nodules. KIDNEYS/URETERS: No renal or ureteral calculi. No hydronephrosis or obstruction. Mostly exophytic 1.0 cm fluid density simple cyst in the right superior pole (series 2, image 36). 1.0 cm mostly exophytic fluid density simple cyst in the left superior pole (series 2, image 30). 1.0 cm partially exophytic lesion in the left anterior i nterpolar region (series 2, image 35), which does not measure simple fluid N o other contour abnormalities. PELVIC ORGANS/BLADDER: Bladder is unremarkab le. Uterus is absent. Pelvic phleboliths. No adnexal masses. PERITONEUM/R ETROPERITONEUM: No free air or fluid. LYMPH NODES: No intra-abdominal,retro peritoneal, pelvic or inguinal lymphadenopathy. VESSELS: Atherosclerotic calcification of the distal abdominal aorta and proximal iliac vessels. G I TRACT: Contrast is noted in the stomach, small bowel and ascending colon. No bowel dilation or evidence of obstruction. No pericolonic inflammatory changes. Extensive colonic diverticulosis, predominantly involving the descending and sigmoid colon, without diverticulitis. Stomach is grossly unremarkable. B ONES AND SOFT TISSUES: No aggressive lytic or suspicious focal sclerotic lesio ns. Generalized osteopenia. Marked multilevel degenerated discs in the lumbosa cral spine, with fusion of, L4 and L5 and marked intervertebral disc space vale rowing at L1-L2 and L2-L3. This shape curvature of the thoracolumbar spine. Marked diastases of the recti muscles. IMPRESSION: 1. No acute abd ominopelvic abnormalities. No bowel dilation or evidence of obstruction. 2. Hepatic steatosis. 3. Moderate dilation of the common bile duct, likely reflecting postcholecystectomy status. 4. 1.0 cm indeterminate lesion in the left kidney which does not measure simple fluid. Recommend evaluation with renal ultrasound on a nonemergent basis. 5. Colonic diverticulosis, worse in the descending and sigmoid colon, without diverticulitis. Signed by: Christian Santiago M.D. on 03/04/2020 6:35 AM Dictated By: EZEQUIEL CAREY MD 4 Transcribed By: MARY on 03/04/20634 COPY TO: NEFTALY MONROY MD Serum or plasma amylase measurement (enzymatic activity/volume)2020-03-04 05:25:00* Test Item Value Reference Range Interpretation Comments Amylase Level (test code = 1798-8) 21 25-125 [facility] lipase measurement (enzymatic activity/volume)2020-03-04 05:25:00* Test Item Value Reference Range Interpretation Comments Lipase (test code = 3040-3) 8 8-78 [facility] McKinneyUrine color mxfrbuoxwoyvg9167-96-39 04:55:00* Test Item Value Reference Range Interpretation Comments Urine Color (test code = 5778-6) YELLOW YELLOW [facility] McKinneyUrine jcgnjpv2556-48-13 04:55:00* Test Item Value Reference Range Interpretation Comments Urine Clarity (test code = 01588-9) CLEAR CLEAR [facility] Dallaspecific gravity of Urine by Test strip 2020-03-04 04:55:00* Test Item Value Reference Range Interpretation Comments Urine Specific [place] (test code = 5811-5) 1.015 1.010-1.02 5 [facility] McKinneyUrine pH measurement by automated test luhlc2076-17-07 04:55:00* Test Item Value Reference Range Interpretation Comments Urine pH (test code = 12922-5) 5 5-7 [facility] McKinneyUrine leukocyte esterase detection by rxtqfcmc7518-54-14 04:55:00* Test Item Value Reference Range Interpretation Comments Urine Leukocyte Esterase (test code = 5799-2) NEGATIVE NEGATIVE [facility] McKinneyUrine nitrite jadyafmpf2302-84-49 04:55:00* Test Item Value Reference Range Interpretation Comments Urine Nitrite (test code = 38391-9) NEGATIVE NEGATIVE [facility]neyUrine protein measurement by test strip (mass/volume)2020-03-04 04:55:00* Test Item Value Reference Range Interpretation Comments Urine Protein (test code = 5804-0) NEGATIVE NEGATIVE [facility] McKinneyUrine glucose flmstugdb8976-09-61 04:55:00* Test Item Value Reference Range Interpretation Comments Urine Glucose (UA) (test code = 2349-9) NEGATIVE NEGATIVE [facility] McKinneyUrine ketones detection by automated test vfwnn9417-83-49 04:55:00* Test Item Value Reference Range Interpretation Comments Urine Ketones (test code = 14752-3) NEGATIVE NEGATIVE [facility] McKinneyUrine urobilinogen measurement by test strip (mass/volume)2020-03-04 04:55:00* Test Item Value Reference Range Interpretation Comments Urine Urobilinogen (test code = 87012-7) 0.2 0.2-1 [facility]ney[facility] total bilirubin measurement (mass/volume)2020-03-04 04:55:00* Test Item Value Reference Range Interpretation Comments Urine Bilirubin (test code = 1978-6) 1+ NEGATIVE [facility] McKinneyUrine erythrocytes fdtesrklj3955-53-51 04:55:00* Test Item Value Reference Range Interpretation Comments Urine Blood (test code = 97668-5) NEGATIVE NEGATIVE [facility] McKinneyAutomated urine sediment leukocyte count by microscopy (number/high power field)2020-03-04 04:55:00* Test Item Value Reference Range Interpretation Comments Urine WBC (test code = 5821-4) 0-5 0-5 [facility] McKinneyErythrocytes detection in urine sediment by light khhhtmcnux2040-82-04 04:55:00* Test Item Value Reference Range Interpretation Comments Urine RBC (test code = 47354-0) 0-5 0-5 [facility] McKinneyBacteria detection in urine sediment by light qwumpnabix7503-67-79 04:55:00* Test Item Value Reference Range Interpretation Comments Urine Bacteria (test code = 00069-1) NONE NONE [facility] McKinneyEpithelial cells detection in urine sediment by light phblufzerp9455-48-29 04:55:00* Test Item Value Reference Range Interpretation Comments Urine Epithelial Cells (test code = 98242-0) FEW NONE [facility] McKinneyMucus detection in urine sediment by light ltvirmqzlf9391-90-31 04:55:00* Test Item Value Reference Range Interpretation Comments Urine Mucus (test code = 8247-9) FEW RARE [facility] McKinneyMODIFIED BA. PJHAQKN8367-35-06 10:18:00 [facility] [address] [place] [address] Patient Name: RODGER NICHOLS MR #: [id number] : 1950 Age/Sex: 69/F Req #: [id number] Adm Physician: KRISTY RORDIGUEZ MD Ordered by: KRISTY RODRIGUEZ MD Report #: [id number] [facility] Room[facility]Bed: [facility] Procedure: 27 DX/MODIFIED BA. SWALLOW Exam Date: 10/24/19 Exam Time: 1430 REPORT STATUS: Signed PROCEDURE: X-RAY MODIFIED BARIUM SWALLOW COMPARISON: None. INDICATIO N: Aspiration Radiation Details: Fluoroscopy time: 2.2 minutes Cumulati ve dose: 16.0 mGy DISCUSSION: Fluoroscopic examination was performed in con junction with speech pathology during swallowing a variety of thin and thick l iquid consistencies. Provided images demonstrate laryngeal penetration and asp iration. CONCLUSION: Modified barium swallow demonstrating laryngeal pe netration and aspiration. Please refer to the speech pathology report for furt her details. Signed by: Gustavo Taveras MD on 10/27/2019 10:18 AM Dictate d By: GUSTAVO TAVERAS MD 1018 T ranscribed By: MARY on 10/27/19 1018 COPY TO: KRISTY RODRIGUEZ MD Bedside Xexgoeo2966-58-93 11:36:00* Test Item Value Reference Range Interpretation Comments Bedside Glucose (test code = 33261-2) 127 70-120 H Meter ID: [id number] [facility] & [facility] McKinneyBlood Culture 2019-10-25 19:10:00* Test Item Value Reference Range Interpretation Comments Blood Culture (test code = 71122146) NO GROWTH AFTER 48 HOURS [facility] McKinneyCHEST 2 [id number] 12:10:00 [facility] [address] [address] Patient Name: RODGER NICHOLS MR #: [id number] : 1950 Age/Sex: 69/F Req #: [id number] Adm Physician: KRISTY RODRIGUEZ MD Ordered by: KRISTY RODRIGUEZ MD Report #: [id number] Location: MED/SURG3 Room/Bed: [facility] Procedure: DX/CHEST 2 VIEWS Exam Date: 10/25/19 Exam Time: 1 050 REPORT STATUS: Signed EXAM: CHEST 2 VIEWS DATE: 10/25/2019 6:46 AM INDICATION: Aspiration pneumo vicente COMPARISON: 10/23/2019 IMPRESSION: Left-sided IJ chest port and r ight-sided pacing device identified in stable position. The trachea is m idline. There has been interval improvement in perihilar opacities and vascula r congestion. The lungs are symmetrically expanded without evidence for large focal consolidation, pneumothorax, or significant pleural effusion. The c ardiomediastinal silhouette is stable in appearance. No acute osseous abnormal ity is identified. Signed by: Dr. James Joshi MD on 10/25/2019 12:13 PM Dictated By: JAMES JOSHI MD 1213 Transcribed By: MARY on 10/25/19 1213 COPY TO: AB DEIDRA RODRIGUEZ MD Sodium Kibst1101-42-03 07:00:00* Test Item Value Reference Range Interpretation Comments Sodium Level (test code = 2951-2) 139 136-145 [facility] Jlokk7219-70-58 07:00:00* Test Item Value Reference Range Interpretation Comments Potassium Level (test code = 2823-3) 4.7 3.5-5.1 [facility] McKinneyChloride Ofvve9483-06-55 07:00:00* Test Item Value Reference Range Interpretation Comments Chloride Level (test code = 2075-0) 102 98-107 [facility] McKinneyCarbon Dioxide Uqajb0115-83-60 07:00:00* Test Item Value Reference Range Interpretation Comments Carbon Dioxide Level (test code = 2028-9) 30 22-29 H [facility] McKinneyAnion Nkl6596-25-28 07:00:00* Test Item Value Reference Range Interpretation Comments Anion Gap (test code = 11131-0) 11.7 8-16 [facility] McKinneyBlood Urea Gjkkozdf9933-03-57 07:00:00* Test Item Value Reference Range Interpretation Comments Blood Urea Nitrogen (test code = 3094-0) 35 7-26 H [facility] McKinneyCreatinine2020-03-10 07:00:00* Test Item Value Reference Range Interpretation Comments Creatinine (test code = 2160-0) 1.15 0.57-1.11 H [facility] McKinneyBUN/Creatinine Bmgfd0154-75-21 07:00:00* Test Item Value Reference Range Interpretation Comments BUN/Creatinine Ratio (test code = 3097-3) 30 6-25 H [facility] McKinneyEstimat Glomerular Filtration Rate 2019-10-25 07:00:00* Test Item Value Reference Range Interpretation Comments Estimat Glomerular Filtration Rate (test code = 635953998) 47 >60 L Ranges were taken from the National Kidney Disease Education Program and the [facility] Foundation literature.Reference ranges:60 or greater: Sxiimd00-48 ( for 3 consecutive months): Chronic kidney disease 15 or less: Kidney failureB[facility] & [facility] McKinneyGlucose Njuny7082-13-76 07:00:00* Test Item Value Reference Range Interpretation Comments Glucose Level (test code = EYA4711) 147 74-118 H [facility] McKinneyCalcium Kvwxz0262-96-28 07:00:00* Test Item Value Reference Range Interpretation Comments Calcium Level (test code = 86102-7) 9.1 8.4-10.2 [facility] McKinneyWhite Blood Ghiln6587-75-94 06:43:00* Test Item Value Reference Range Interpretation Comments White Blood Count (test code = 6690-2) 13.86 4.8-10.8 H [facility] McKinneyRed Blood Tllly2803-94-97 06:43:00* Test Item Value Reference Range Interpretation Comments Red Blood Count (test code = 789-8) 3.19 3.6-5.1 L [facility] McKinneyHemoglobin2020-03-10 06:43:00* Test Item Value Reference Range Interpretation Comments Hemoglobin (test code = 49663-6) 9.9 12.0-16.0 L [facility] McKinneyHematocrit2020-03-10 06:43:00* Test Item Value Reference Range Interpretation Comments Hematocrit (test code = 4544-3) 31.0 34.2-44.1 L [facility] McKinneyMean Corpuscular Trexcv1039-85-39 06:43:00* Test Item Value Reference Range Interpretation Comments Mean Corpuscular Volume (test code = 787-2) 97.2 81-99 [facility] McKinneyMean Corpuscular Onhleulvyw2209-54-21 06:43:00* Test Item Value Reference Range Interpretation Comments Mean Corpuscular Hemoglobin (test code = 785-6) 31.0 28-32 [facility] McKinneyMean Corpuscular Hemoglobin Concent 2019-10-25 06:43:00* Test Item Value Reference Range Interpretation Comments Mean Corpuscular Hemoglobin Concent (test code = 786-4) 31.9 31-35 [facility] McKinneyRed Cell Distribution Wrgst0003-04-20 06:43:00* Test Item Value Reference Range Interpretation Comments Red Cell Distribution Width (test code = 34177-7) 14.9 11.7 -14.4 H [facility] McKinneyPlatelet Kxamt5849-17-15 06:43:00* Test Item Value Reference Range Interpretation Comments Platelet Count (test code = 777-3) 285 140-360 [facility] McKinneyNeutrophils (%) (Auto)2019-10-25 06:43:00 * Test Item Value Reference Range Interpretation Comments Neutrophils (%) (Auto) (test code = 21230-0) 87.0 38.7-80.0 H [facility] McKinneyLymphocytes (%) (Auto)2019-10-25 06:43:00 * Test Item Value Reference Range Interpretation Comments Lymphocytes (%) (Auto) (test code = 736-9) 5.4 18.0-39.1 L [facility] McKinneyMonocytes (%) (Auto)2019-10-25 06:43:00* Test Item Value Reference Range Interpretation Comments Monocytes (%) (Auto) (test code = 5905-5) 6.7 4.4-11.3 [facility] McKinneyEosinophils (%) (Auto)2019-10-25 06:43:00 * Test Item Value Reference Range Interpretation Comments Eosinophils (%) (Auto) (test code = 713-8) 0.0 0.0-6.0 [facility] McKinneyBasophils (%) (Auto)2019-10-25 06:43:00* Test Item Value Reference Range Interpretation Comments Basophils (%) (Auto) (test code = 706-2) 0.1 0.0-1.0 [facility] McKinneyIM GRANULOCYTES %2019-10-25 06:43:00* Test Item Value Reference Range Interpretation Comments IM GRANULOCYTES % (test code = IM GRANULOCYTES %) 0.8 0.0- 1.0 [facility] McKinneyNeutrophils # (Auto)2019-10-25 06:43:00* Test Item Value Reference Range Interpretation Comments Neutrophils # (Auto) (test code = 751-8) 12.1 2.1-6.9 H [facility] McKinneyLymphocytes # (Auto)2019-10-25 06:43:00* Test Item Value Reference Range Interpretation Comments Lymphocytes # (Auto) (test code = 55714-6) 0.8 1.0-3.2 L [facility] McKinneyMonocytes # (Auto)2019-10-25 06:43:00* Test Item Value Reference Range Interpretation Comments Monocytes # (Auto) (test code = 742-7) 0.9 0.2-0.8 H [facility] McKinneyEosinophils # (Auto)2019-10-25 06:43:00* Test Item Value Reference Range Interpretation Comments Eosinophils # (Auto) (test code = 711-2) 0.0 0.0-0.4 [facility] McKinneyBasophils # (Auto)2019-10-25 06:43:00* Test Item Value Reference Range Interpretation Comments Basophils # (Auto) (test code = 704-7) 0.0 0.0-0.1 [facility] McKinneyAbsolute Immature Granulocyte (auto 2019-10-25 06:43:00* Test Item Value Reference Range Interpretation Comments Absolute Immature Granulocyte (auto (tk t code = Absolute Immature Granulocyte (auto) 0.11 0-0.1 H [facility] McKinneyCreatine Qiqcjt7921-51-14 14:18:00* Test Item Value Reference Range Interpretation Comments Creatine Kinase (test code = 2157-6) 49 29-168 [facility] McKinneyCreatine Kinase UO5809-41-73 14:18:00* Test Item Value Reference Range Interpretation Comments Creatine Kinase MB (test code = 10444-2) 0.80 0-5.0 [facility] McKinneyTroponin N6430-97-09 14:18:00* Test Item Value Reference Range Interpretation Comments Troponin I (test code = BAY7565) < 0.001 0-0.300 [facility]aserum or plasma creatine kinase measurement (enzymatic activity/volume)2019-10-24 13:14:00* Test Item Value Reference Range Interpretation Comments Creatine Kinase (test code = 2157-6) 49 29-168 [facility]aserum or plasma creatine kinase MB measurement (mass/volume)2019-10-24 13:14:00* Test Item Value Reference Range Interpretation Comments Creatine Kinase MB (test code = 19011-2) 0.80 0-5.0 [facility] McKinneyTroponin I measurement by highly sensitive enzyme jbkjlepuoek4478-10-91 13:14:00* Test Item Value Reference Range Interpretation Comments Troponin I (test code = 55580-5) < 0.001 0-0.300 [facility] McKinneyCHEST SINGLE (PORTABLE)2019-10-23 20:59:00 [facility] [address] [address] Patient Name: RODGER NICHOLS MR #: [id number] : 1950 Age/Sex: 69/F Req #: [id number] Adm Physician: KRISTY RODRIGUEZ MD Ordered by: ANNE WILSON MANAGER STONE Report #: [id number] Location: [facility] Room/Bed: [place] [address] Procedure: [id number] DX/CHEST SINGLE (PORTABLE) Exam Date: 10/23/19 E xam Time: 193 REPORT STATUS: Paula d EXAMINATION: CHEST SINGLE (PORTABLE) INDICATION: Hurts to breathe COMPARISON: Chest x-ray 09/04/2019 FINDINGS: TUBES and LINES: Right chest wall cardiac device with leads in right atrium and ri ght ventricle. Thoracic spine stimulator device projects in the lower mid spin e. Left chest wall port with left IJ central venous catheter, tip in the mid S VC.. LUNGS: Normal lung volumes. Mild prominence of pulmonary interstitiu m. Prominent central pulmonary vasculature. Bilateral infrahilar haziness. PLEURA: Partial obscuration of the lateral aspect of left hemidiaphragm. HEART AND MEDIASTINUM: Cardiac size is mildly enlarged. BONES AND SOFT TISSUES: No acute osseous lesion. Metallic densities in the base of n deisi/ upper chest. Degenerative changes in the spine and shoulders. UPPER AB DOMEN: No free air under the diaphragm. IMPRESSION: Mild cardiome fox and pulmonary vascular congestion, mild pulmonary interstitial edema is s uspected. A small left pleural effusion is possible. Bilateral infrahilar h aziness can be due to atelectasis or pneumonia. Signed by: Rocky Grace DO on 10/23/2019 9:02 PM Dictated By: ROCKY GRACE DO Electronically S igned By: ROCKY GRACE DO on 10/23/192101 Transcribed By: MARY on 10/22 COPY TO: ANNE WILSON MANAGER STONE Urine NYD6125-75-04 20:11:00* Test Item Value Reference Range Interpretation Comments Urine WBC (test code = 5821-4) 0-5 0-5 [facility] McKinneyUrine QYS8277-65-06 20:11:00* Test Item Value Reference Range Interpretation Comments Urine RBC (test code = 69668-6) 0-5 0-5 [facility] McKinneyUrine Foufugda7628-93-06 20:11:00* Test Item Value Reference Range Interpretation Comments Urine Bacteria (test code = 50507-1) RARE NONE [facility] McKinneyUrine Epithelial Lfnfp5795-95-58 20:11:00 * Test Item Value Reference Range Interpretation Comments Urine Epithelial Cells (test code = 30825-5) FEW NONE [facility] McKinneyB-Type Natriuretic Kabyhgx4787-90-74 19:55:00* Test Item Value Reference Range Interpretation Comments B-Type Natriuretic Peptide (test code = 93231-3) 58.8 0-100 [facility] McKinneyInfluenza Virus Types A,B Antigen 2019-10-23 19:47:00* Test Item Value Reference Range Interpretation Comments Influenza Virus Types A,B Antigen (test code = 84250-9) NEGATIVE NEGATIVE [facility] McKinneyTotal Vtspktqzi6366-79-95 19:40:00* Test Item Value Reference Range Interpretation Comments Total Bilirubin (test code = 1975-2) 0.8 0.2-1.2 [facility] McKinneyAspartate Amino Transf (AST/SGOT) 2019-10-23 19:40:00* Test Item Value Reference Range Interpretation Comments Aspartate Amino Transf (AST/SGOT) (test code = Aspartate Amino Transf (AST/SGOT)) 12 5-34 [facility] McKinneyAlanine Aminotransferase (ALT/SGPT) 2019-10-23 19:40:00* Test Item Value Reference Range Interpretation Comments Alanine Aminotransferase (ALT/SGPT) (test code = 1742-6) 8 0-55 [facility] McKinneyTotal Lpcngfv2421-87-35 19:40:00* Test Item Value Reference Range Interpretation Comments Total Protein (test code = 2885-2) 7.3 6.5-8.1 [facility] McKinneyAlbumin2020-03-08 19:40:00* Test Item Value Reference Range Interpretation Comments Albumin (test code = 1751-7) 3.5 3.5-5.0 [facility] McKinneyGlobulin2020-03-08 19:40:00* Test Item Value Reference Range Interpretation Comments Globulin (test code = 33719-2) 3.8 2.3-3.5 H [facility] McKinneyAlbumin/Globulin Jqidn0201-49-49 19:40:00 * Test Item Value Reference Range Interpretation Comments Albumin/Globulin Ratio (test code = 1759-0) 0.9 0.8-2.0 [facility] McKinneyAlkaline Xyagcqnlftt1548-77-11 19:40:00* Test Item Value Reference Range Interpretation Comments Alkaline Phosphatase (test code = 6768-6) 96 40-150 [facility] McKinneyLactic Acid Ybhtq4354-05-71 19:36:00* Test Item Value Reference Range Interpretation Comments Lactic Acid Level (test code = Lactic Acid Level) 1.4 0.5- 2.0 [facility] McKinneyUrine Tufku7140-17-04 19:34:00* Test Item Value Reference Range Interpretation Comments Urine Color (test code = 5778-6) YELLOW YELLOW [facility] McKinneyUrine Ifpwveh6019-60-01 19:34:00* Test Item Value Reference Range Interpretation Comments Urine Clarity (test code = 54712-1) CLEAR CLEAR [facility] McKinneyUrine Specific Aeqqyrx4792-37-84 19:34:00 * Test Item Value Reference Range Interpretation Comments Urine Specific [place] (test code = 5811-5) 1.015 1.010-1.02 5 [facility] McKinneyUrine pJ6023-34-38 19:34:00* Test Item Value Reference Range Interpretation Comments Urine pH (test code = 24395-0) 6 5-7 [facility] McKinneyUrine Leukocyte Pfmgppjk3477-19-97 19:34:00* Test Item Value Reference Range Interpretation Comments Urine Leukocyte Esterase (test code = 5799-2) NEGATIVE NEGATIVE [facility] McKinneyUrine Vklnphz2136-25-68 19:34:00* Test Item Value Reference Range Interpretation Comments Urine Nitrite (test code = 97617-1) NEGATIVE NEGATIVE [facility] Lsjebet3471-64-68 19:34:00* Test Item Value Reference Range Interpretation Comments Urine Protein (test code = 5804-0) NEGATIVE NEGATIVE [facility] McKinneyUrine Glucose (UA)2019-10-23 19:34:00* Test Item Value Reference Range Interpretation Comments Urine Glucose (UA) (test code = 2349-9) NEGATIVE NEGATIVE [facility] McKinneyUrine Iwrfnus1233-31-90 19:34:00* Test Item Value Reference Range Interpretation Comments Urine Ketones (test code = 31396-5) NEGATIVE NEGATIVE [facility] Txoxbpdztcdb4060-34-34 19:34:00* Test Item Value Reference Range Interpretation Comments Urine Urobilinogen (test code = 06061-0) 0.2 0.2-1 [facility] McKinneyUrine Qjcuqxbuf0929-90-68 19:34:00* Test Item Value Reference Range Interpretation Comments Urine Bilirubin (test code = 1978-6) NEGATIVE NEGATIVE [facility] McKinneyUrine Vczwi7308-98-84 19:34:00* Test Item Value Reference Range Interpretation Comments Urine Blood (test code = 35507-4) NEGATIVE NEGATIVE [facility] McKinneyProthrombin Fnbo2307-74-95 19:31:00* Test Item Value Reference Range Interpretation Comments Prothrombin Time (test code = 5902-2) 12.3 11.9-14.5 [facility] McKinneyProthromb Time International Ratio 2019-10-23 19:31:00* Test Item Value Reference Range Interpretation Comments Prothromb Time International Ratio (test code = 6301-6) 0.87 Oral Anticoagulant Therapy INR Values:1. Low Intensity Therapy 1.5 - 2.02 . Moderate Intensity Therapy 2.0 - 3.03. High Intensity Therapy(1) 2.5 - 3. 54. High Intensity Therapy(2) 3.0 - 4.05. Panic Value INR > 5.0 [facility] McKinneyActivated Partial Thromboplast Time 2019-10-23 19:31:00* Test Item Value Reference Range Interpretation Comments Activated Partial Thromboplast Time (test code = 81177-9) 26.8 23.8-35.5 [facility] McKinneyProthrombin time (PT) in platelet poor plasma by coagulation fthcr3645-04-97 18:52:00* Test Item Value Reference Range Interpretation Comments Prothrombin Time (test code = 5902-2) 12.3 11.9-14.5 [facility] McKinneyINR in Platelet poor plasma by Coagulation ekema3382-42-32 18:52:00* Test Item Value Reference Range Interpretation Comments Prothromb Time International Ratio (test code = 6301-6) 0.87 Oral Anticoagulant Therapy INR Values:1. Low Intensity Therapy 1.5 - 2.02 . Moderate Intensity Therapy 2.0 - 3.03. High Intensity Therapy(1) 2.5 - 3. 54. High Intensity Therapy(2) 3.0 - 4.05. Panic Value INR > 5.0 [facility] McKinneyActivated partial thromboplastin time (aPTT) in platelet poor plasma by coagulation eogei8601-51-82 18:52:00* Test Item Value Reference Range Interpretation Comments Activated Partial Thromboplast Time (test code = 70444-8) 26.8 23.8-35.5 [facility] McKinneyInfluenza virus A and B antigen identification by eojpwxtgaytoeexsla4471-91-88 18:52:00* Test Item Value Reference Range Interpretation Comments Influenza Virus Types A,B Antigen (test code = 78545-5) NEGATIVE NEGATIVE [facility] McKinneyFluoroscopic procedure less than one hour rnemdgyy9072-89-59 18:52:00* Test Item Value Reference Range Interpretation Comments Lactic Acid Level (test code = Lactic Acid Level) 1.4 0.5- 2.0 [facility] McKinneyBNP Fku-gSud7158-45-08 18:52:00* Test Item Value Reference Range Interpretation Comments B-Type Natriuretic Peptide (test code = 80463-9) 58.8 0-100 [facility] McKinneyBlood xlhopqi2119-47-84 18:52:00* Test Item Value Reference Range Interpretation Comments Blood Culture (test code = 58891375) NO GROWTH AFTER 5 DAYS, FINAL REPORT [facility] McKinneyRIBS UNILAT W/OSR5772-68-07 09:06:00 [facility] [address] [place] [address] Patient Name: RODGER NICHOLS MR #: [id number] : 1950 Age/Sex: 69/F Req #: [id number] Adm Physician: Ordered by: KRISTY RODRIGUEZ MD Report #: [id number] Location: [facility] Room/Bed: Procedure: [id number] DX/JESUS MANUELS UNILAT W/CXR Exam Date: 10/05/19 Exam Time: 0815 REPORT STATUS: Signed EXAM: RIBS UNILAT W/CXR DATE: 10/05/2019 8:25 AM INDICATION: Dyspnea COMPARISON: 09/04/2019 FINDINGS: Frontal view of the chest as well as multiple projections of the right rib cage were obtained. There are stimulator device again identified overlying the mid thoracic spine. Right-sided pa cing device and left-sided IJ chest port identified in stable position. The tr achea is midline. The lungs are symmetrically expanded without evidence for la rge focal consolidation, pneumothorax, or significant pleural effusion. The ca rdiomediastinal silhouette is stable in appearance. There are degenerative changes of the visualized spine and shoulders. No acute osseous abnormality is identified. Specifically, no radiographically evident acute right-sided rib f racture is appreciated. IMPRESSION: No acute cardiopulmonary proces s identified. No radiographically evident right-sided rib fracture apprecia jaye. Signed by: Dr. James Joshi MD on 10/05/2019 9:09 AM Dictated B y: JAMES JOSHI MD 8 Transcribed By: MARY on 10/05/19908 COPY TO: KRISTY RODRIGUEZ MD C-Reactive Ebhkvga2525-80-74 22:02:00* Test Item Value Reference Range Interpretation Comments C-Reactive Protein (test code = 1988-5) 44 0-10 H Performed at: - [facility] [id number] Director: Italo Joyner MD, Phone: [phone] Scott & White [facility] Center – McKinneyBedside Jhpydyz1752-41-04 21:08:00* Test Item Value Reference Range Interpretation Comments Bedside Glucose (test code = 35644-2) 93 70-120 Meter ID: [id number] Scott & [facility] – McKinneyIron Lnwjn0949-44-60 08:35:00* Test Item Value Reference Range Interpretation Comments Iron Level (test code = 2498-4) 35 50-170 L [facility] McKinneyTotal Iron Binding Ynpezbjn2290-27-67 08:35:00* Test Item Value Reference Range Interpretation Comments Total Iron Binding Capacity (test code = 2500-7) 221 261-4 78 L [facility] McKinneyPercent Iron Bhmypkwpny0360-59-00 08:35:00* Test Item Value Reference Range Interpretation Comments Percent Iron Saturation (test code = 2502-3) 16 15-50 [facility] McKinneyTransferrin2020-01-21 08:35:00* Test Item Value Reference Range Interpretation Comments Transferrin (test code = 3034-6) 158 180-382 L [facility] McKinneyIron Nmvjk7608-75-33 08:35:00* Test Item Value Reference Range Interpretation Comments Iron Level (test code = 2498-4) 35 50-170 L [facility] McKinneyTotal Iron Binding Yajipnvz0271-03-18 08:35:00* Test Item Value Reference Range Interpretation Comments Total Iron Binding Capacity (test code = 2500-7) 221 261-4 78 L [facility] McKinneyPercent Iron Cduydzrtkk5138-60-13 08:35:00* Test Item Value Reference Range Interpretation Comments Percent Iron Saturation (test code = 2502-3) 16 15-50 [facility] McKinneyTransferrin2020-01-21 08:35:00* Test Item Value Reference Range Interpretation Comments Transferrin (test code = 3034-6) 158 180-382 L [facility] McKinneyThyroid Stimulating Hormone (TSH) 2019-09-06 07:19:00* Test Item Value Reference Range Interpretation Comments Thyroid Stimulating Hormone (TSH) (test code = 25004-4) 0.040 0.350-4.940 L [facility] McKinneyThyroid Stimulating Hormone (TSH) 2019-09-06 07:19:00* Test Item Value Reference Range Interpretation Comments Thyroid Stimulating Hormone (TSH) (test code = 06675-3) 0.040 0.350-4.940 L [facility]aserum or plasma iron measurement (mass/volume)2019-09-06 06:00:00* Test Item Value Reference Range Interpretation Comments Iron Level (test code = 2498-4) 35 50-170 [facility]aserum or plasma iron binding capacity measurement (mass/volume)2019-09-06 06:00:00* Test Item Value Reference Range Interpretation Comments Total Iron Binding Capacity (test code = 2500-7) 221 261-4 78 [facility]aserum or plasma iron saturation measurement (mass fraction)2019-09-06 06:00:00* Test Item Value Reference Range Interpretation Comments Percent Iron Saturation (test code = 2502-3) 16 15-50 [facility]aserum or plasma transferrin measurement (mass/volume)2019-09-06 06:00:00* Test Item Value Reference Range Interpretation Comments Transferrin (test code = 3034-6) 158 180-382 [facility] Dallasodium Vihzv4560-12-60 05:00:00* Test Item Value Reference Range Interpretation Comments Sodium Level (test code = 2951-2) 138 136-145 [facility] McKinneyPotassium Ubvie1479-99-35 05:00:00* Test Item Value Reference Range Interpretation Comments Potassium Level (test code = 2823-3) 4.3 3.5-5.1 [facility] McKinneyChloride Qlcoy5788-31-08 05:00:00* Test Item Value Reference Range Interpretation Comments Chloride Level (test code = 2075-0) 100 98-107 [facility] McKinneyCarbon Dioxide Qrekv7063-85-18 05:00:00* Test Item Value Reference Range Interpretation Comments Carbon Dioxide Level (test code = 2028-9) 28 22-29 [facility] McKinneyAnion Xfx5723-93-79 05:00:00* Test Item Value Reference Range Interpretation Comments Anion Gap (test code = 00606-7) 14.3 8-16 [facility] McKinneyBlood Urea Fzcsgimc1941-05-94 05:00:00* Test Item Value Reference Range Interpretation Comments Blood Urea Nitrogen (test code = 3094-0) 25 7-26 [facility] McKinneyCreatinine2020-01-21 05:00:00* Test Item Value Reference Range Interpretation Comments Creatinine (test code = 2160-0) 1.41 0.57-1.11 H [facility] McKinneyBUN/Creatinine Rjmeb7542-61-23 05:00:00* Test Item Value Reference Range Interpretation Comments BUN/Creatinine Ratio (test code = 3097-3) 18 6-25 [facility] McKinneyEstimat Glomerular Filtration Rate 2019-09-06 05:00:00* Test Item Value Reference Range Interpretation Comments Estimat Glomerular Filtration Rate (test code = 660788718) 37 >60 L Ranges were taken from the National Kidney Disease Education Program and the [facility] literature.Reference ranges:60 or greater: Nhgjbi53-38 ( for 3 consecutive months): Chronic kidney disease 15 or less: Kidney failureBaylor Scott & [facility] – McKinneyGlucose Wjqvu6614-08-37 05:00:00* Test Item Value Reference Range Interpretation Comments Glucose Level (test code = WSA5374) 137 74-118 H [facility] McKinneyCalcium Vtlql2734-99-77 05:00:00* Test Item Value Reference Range Interpretation Comments Calcium Level (test code = 71150-8) 8.9 8.4-10.2 [facility] McKinneyWhite Blood Jfmwm2324-78-62 04:43:00* Test Item Value Reference Range Interpretation Comments White Blood Count (test code = 6690-2) 7.49 4.8-10.8 [facility] McKinneyRed Blood Vnoeq4414-13-61 04:43:00* Test Item Value Reference Range Interpretation Comments Red Blood Count (test code = 789-8) 3.20 3.6-5.1 L [facility] McKinneyHemoglobin2020-01-21 04:43:00* Test Item Value Reference Range Interpretation Comments Hemoglobin (test code = 34280-0) 9.9 12.0-16.0 L [facility] McKinneyHematocrit2020-01-21 04:43:00* Test Item Value Reference Range Interpretation Comments Hematocrit (test code = 4544-3) 31.4 34.2-44.1 L [facility] McKinneyMean Corpuscular Czmiia0017-21-81 04:43:00* Test Item Value Reference Range Interpretation Comments Mean Corpuscular Volume (test code = 787-2) 98.1 81-99 [facility] McKinneyMean Corpuscular Fyphgnnmkg4798-43-60 04:43:00* Test Item Value Reference Range Interpretation Comments Mean Corpuscular Hemoglobin (test code = 785-6) 30.9 28-32 [facility] McKinneyMean Corpuscular Hemoglobin Concent 2019-09-06 04:43:00* Test Item Value Reference Range Interpretation Comments Mean Corpuscular Hemoglobin Concent (test code = 786-4) 31.5 31-35 [facility] McKinneyRed Cell Distribution Atyhd3815-32-49 04:43:00* Test Item Value Reference Range Interpretation Comments Red Cell Distribution Width (test code = 47810-6) 14.6 11.7 -14.4 H [facility] McKinneyPlatelet Gevxe5243-93-34 04:43:00* Test Item Value Reference Range Interpretation Comments Platelet Count (test code = 777-3) 246 140-360 [facility] McKinneyNeutrophils (%) (Auto)2019-09-06 04:43:00 * Test Item Value Reference Range Interpretation Comments Neutrophils (%) (Auto) (test code = 47844-5) 61.2 38.7-80.0 [facility] McKinneyLymphocytes (%) (Auto)2019-09-06 04:43:00 * Test Item Value Reference Range Interpretation Comments Lymphocytes (%) (Auto) (test code = 736-9) 23.4 18.0-39.1 [facility] McKinneyMonocytes (%) (Auto)2019-09-06 04:43:00* Test Item Value Reference Range Interpretation Comments Monocytes (%) (Auto) (test code = 5905-5) 11.5 4.4-11.3 H [facility] McKinneyEosinophils (%) (Auto)2019-09-06 04:43:00 * Test Item Value Reference Range Interpretation Comments Eosinophils (%) (Auto) (test code = 713-8) 3.2 0.0-6.0 [facility] McKinneyBasophils (%) (Auto)2019-09-06 04:43:00* Test Item Value Reference Range Interpretation Comments Basophils (%) (Auto) (test code = 706-2) 0.4 0.0-1.0 [facility] McKinneyIM GRANULOCYTES %2019-09-06 04:43:00* Test Item Value Reference Range Interpretation Comments IM GRANULOCYTES % (test code = IM GRANULOCYTES %) 0.3 0.0- 1.0 [facility] McKinneyNeutrophils # (Auto)2019-09-06 04:43:00* Test Item Value Reference Range Interpretation Comments Neutrophils # (Auto) (test code = 751-8) 4.6 2.1-6.9 [facility] McKinneyLymphocytes # (Auto)2019-09-06 04:43:00* Test Item Value Reference Range Interpretation Comments Lymphocytes # (Auto) (test code = 03804-9) 1.8 1.0-3.2 [facility] McKinneyMonocytes # (Auto)2019-09-06 04:43:00* Test Item Value Reference Range Interpretation Comments Monocytes # (Auto) (test code = 742-7) 0.9 0.2-0.8 H [facility] McKinneyEosinophils # (Auto)2019-09-06 04:43:00* Test Item Value Reference Range Interpretation Comments Eosinophils # (Auto) (test code = 711-2) 0.2 0.0-0.4 [facility] McKinneyBasophils # (Auto)2019-09-06 04:43:00* Test Item Value Reference Range Interpretation Comments Basophils # (Auto) (test code = 704-7) 0.0 0.0-0.1 [facility] McKinneyAbsolute Immature Granulocyte (auto 2019-09-06 04:43:00* Test Item Value Reference Range Interpretation Comments Absolute Immature Granulocyte (auto (tk t code = Absolute Immature Granulocyte (auto) 0.02 0-0.1 [facility] or plasma thyrotropin measurement by detection limit <= 0.005 miu/l (units/volume)2019-09-06 03:31:00* Test Item Value Reference Range Interpretation Comments Thyroid Stimulating Hormone (TSH) (test code = 18875-8) 0.040 0.350-4.940 [facility] McKinneyD-Dimer Quantitative (PE/DVT)2019-09-05 22:48:00* Test Item Value Reference Range Interpretation Comments D-Dimer Quantitative (PE/DVT) (test code = 69672-6) 947 0- 400 H As with all in vitro diagnostic tests, the test results should be interpreted by the physician in conjunction with clinical findings and other test results.Test results are reported in NEW D-dimer units(ug/mLFEU).[facility] McKinneyD-Dimer Quantitative (PE/DVT)2019-09-05 22:48:00* Test Item Value Reference Range Interpretation Comments D-Dimer Quantitative (PE/DVT) (test code = 01140-3) 947 0- 400 H As with all in vitro diagnostic tests, the test results should be interpreted by the physician in conjunction with clinical findings and other test results.Test results are reported in NEW D-dimer units(ug/mLFEU).[facility] McKinneyFibrin D-dimer DDU measurement in platelet poor plasma (mass/volume)2019-09-05 21:10:00* Test Item Value Reference Range Interpretation Comments D-Dimer Quantitative (PE/DVT) (test code = 85344-2) 947 0- 400 As with all in vitro diagnostic tests, the test results should be interpreted by the physician in conjunction with clinical findings and other test results.Test results are reported in NEW D-dimer units(ug/mLFEU).[facility]aserum or plasma C reactive protein measurement (mass/volume) 2019-09-05 21:10:00* Test Item Value Reference Range Interpretation Comments C-Reactive Protein (test code = 1988-5) 44 0-10 Performed at: - [facility] [address] [id number] Director: Italo Joyner MD, Phone: [phone] Scott & White [facility] – McKinneyTriglycerides Qopuo1826-73-10 08:40:00* Test Item Value Reference Range Interpretation Comments Triglycerides Level (test code = 2571-8) 96 0-149 [facility] McKinneyCholesterol Rfrcn5146-88-69 08:40:00* Test Item Value Reference Range Interpretation Comments Cholesterol Level (test code = 2093-3) 148 0-199 Less than 200 mg/dL Low Bnfe844 - 239 mg/dL Borderline Fbmm858 m g/dl and greater High Risk [facility] McKinneyLDL Lklypazcpaf8413-36-53 08:40:00* Test Item Value Reference Range Interpretation Comments LDL Cholesterol (test code = 2089-1) 101 60-130 [facility] McKinneyHDL Kdmpuhhactw1474-91-67 08:40:00* Test Item Value Reference Range Interpretation Comments HDL Cholesterol (test code = 2085-9) 28 40-60 L [facility] McKinneyCholesterol/HDL Nbmfh4759-81-71 08:40:00 * Test Item Value Reference Range Interpretation Comments Cholesterol/HDL Ratio (test code = 9830-1) 5.3 3.0-3.6 H [facility] McKinneyTriglycerides Sdgto9675-64-87 08:40:00* Test Item Value Reference Range Interpretation Comments Triglycerides Level (test code = 2571-8) 96 0-149 [facility] McKinneyCholesterol Ovoha1688-50-95 08:40:00* Test Item Value Reference Range Interpretation Comments Cholesterol Level (test code = 2093-3) 148 0-199 Less than 200 mg/dL Low Lqzl518 - 239 mg/dL Borderline Lmgp537 m g/dl and greater High Risk [facility] McKinneyLDL Qulbkjjdvxu2928-52-42 08:40:00* Test Item Value Reference Range Interpretation Comments LDL Cholesterol (test code = 2089-1) 101 60-130 [facility] McKinneyHDL Lwntnxnjkmw9649-45-30 08:40:00* Test Item Value Reference Range Interpretation Comments HDL Cholesterol (test code = 2085-9) 28 40-60 L [facility] McKinneyCholesterol/HDL Cuobt2044-58-21 08:40:00 * Test Item Value Reference Range Interpretation Comments Cholesterol/HDL Ratio (test code = 9830-1) 5.3 3.0-3.6 H [facility] McKinneyCreatine Kinase YV9072-31-74 07:08:00* Test Item Value Reference Range Interpretation Comments Creatine Kinase MB (test code = 00071-2) 0.80 0-5.0 [facility] McKinneyTroponin U1617-98-09 07:08:00* Test Item Value Reference Range Interpretation Comments Troponin I (test code = MAI3561) 0.012 0-0.300 [facility] McKinneyCreatine Xrzvaw9210-91-83 06:48:00* Test Item Value Reference Range Interpretation Comments Creatine Kinase (test code = 2157-6) 26 29-168 L [facility] McKinneyTotal Gxfkxwsdg4364-66-83 06:09:00* Test Item Value Reference Range Interpretation Comments Total Bilirubin (test code = 1975-2) 0.8 0.2-1.2 [facility] McKinneyAspartate Amino Transf (AST/SGOT) 2019-09-05 06:09:00* Test Item Value Reference Range Interpretation Comments Aspartate Amino Transf (AST/SGOT) (test code = Aspartate Amino Transf (AST/SGOT)) 9 5-34 [facility] McKinneyAlanine Aminotransferase (ALT/SGPT) 2019-09-05 06:09:00* Test Item Value Reference Range Interpretation Comments Alanine Aminotransferase (ALT/SGPT) (test code = 1742-6) 6 0-55 [facility] McKinneyTotal Kxtntfy5820-78-38 06:09:00* Test Item Value Reference Range Interpretation Comments Total Protein (test code = 2885-2) 6.1 6.5-8.1 L [facility] McKinneyAlbumin2020-01-20 06:09:00* Test Item Value Reference Range Interpretation Comments Albumin (test code = 1751-7) 2.8 3.5-5.0 L [facility] McKinneyGlobulin2020-01-20 06:09:00* Test Item Value Reference Range Interpretation Comments Globulin (test code = 22083-3) 3.3 2.3-3.5 [facility] McKinneyAlbumin/Globulin Fofed6879-97-74 06:09:00 * Test Item Value Reference Range Interpretation Comments Albumin/Globulin Ratio (test code = 1759-0) 0.8 0.8-2.0 [facility] McKinneyAlkaline Atbugrekuin0786-00-40 06:09:00* Test Item Value Reference Range Interpretation Comments Alkaline Phosphatase (test code = 6768-6) 108 40-150 [facility] or plasma triglyceride measurement (mass/volume)2019-09-05 03:50:00* Test Item Value Reference Range Interpretation Comments Triglycerides Level (test code = 2571-8) 96 0-149 [facility]aserum or plasma cholesterol measurement (mass/volume)2019-09-05 03:50:00* Test Item Value Reference Range Interpretation Comments Cholesterol Level (test code = 2093-3) 148 0-199 Less than 200 mg/dL Low Dlhq915 - 239 mg/dL Borderline Wlbd622 m g/dl and greater High Risk [facility] or plasma cholesterol in LDL measurement (mass/volume) 2019-09-05 03:50:00* Test Item Value Reference Range Interpretation Comments LDL Cholesterol (test code = 2089-1) 101 60-130 [facility]aserum or plasma cholesterol in HDL measurement (mass/volume)2019-09-05 03:50:00* Test Item Value Reference Range Interpretation Comments HDL Cholesterol (test code = 2085-9) 28 40-60 [facility]aserum or plasma total cholesterol/cholesterol in HDL mass jdvzf4394-32-98 03:50:00* Test Item Value Reference Range Interpretation Comments Cholesterol/HDL Ratio (test code = 9830-1) 5.3 3.0-3.6 [facility] McKinneyB-Type Natriuretic Sewkbtj6994-63-34 12:21:00* Test Item Value Reference Range Interpretation Comments B-Type Natriuretic Peptide (test code = 46944-7) 62.0 0-100 [facility] McKinneyMagnesium Dajcj2495-15-95 12:08:00* Test Item Value Reference Range Interpretation Comments Magnesium Level (test code = 31517-7) 1.6 1.3-2.1 [facility] McKinneyMagnesium Kpsnf1189-81-35 12:08:00* Test Item Value Reference Range Interpretation Comments Magnesium Level (test code = 14873-9) 1.6 1.3-2.1 [facility] McKinneyProthrombin Decu9099-35-38 12:03:00* Test Item Value Reference Range Interpretation Comments Prothrombin Time (test code = 5902-2) 12.2 11.9-14.5 [facility] McKinneyProthromb Time International Ratio 2019-09-04 12:03:00* Test Item Value Reference Range Interpretation Comments Prothromb Time International Ratio (test code = 6301-6) 0.86 Oral Anticoagulant Therapy INR Values:1. Low Intensity Therapy 1.5 - 2.02 . Moderate Intensity Therapy 2.0 - 3.03. High Intensity Therapy(1) 2.5 - 3. 54. High Intensity Therapy(2) 3.0 - 4.05. Panic Value INR > 5.0 [facility] McKinneyActivated Partial Thromboplast Time 2019-09-04 12:03:00* Test Item Value Reference Range Interpretation Comments Activated Partial Thromboplast Time (test code = 99641-2) 28.1 23.8-35.5 [facility] McKinneyCHEST 2 FQMNV2374-46-64 11:52:00 [facility] [address] [address] Patient Name: RODGER NICHOLS MR #: [id number] : 1950 Age/Sex: 69/F Req #: [id number] Adm Physician: Ordered by: JULIANA REID MANAGER STONE Report #: [id number] Location: ER Room/Bed: Procedure: DX/CHEST 2 VIEWS Exam Date: 09/04/19 Exam Time: 1 112 REPORT STATUS: Signed EXAMIN ATION: CHEST 2 VIEWS INDICATION: ORDER PLACED BY 19 1112 Y COMPARISON: 04/23/2019 FINDINGS: PA and lat eral views TUBES and LINES: 2-lead pacemaker device overlying the right up per chest with leads overlying the right atrial appendage and right ventricle, new since prior exam. Left-sided chest port is unchanged. Metallic densities with packing overlying the right axilla. Neurostimulator device with tip overl inez the mid thoracic spine. LUNGS: Lungs are well inflated. Mild bilat eral interstitial edema. No lobar consolidations. PLEURA: No pleural e ffusion or pneumothorax. HEART AND MEDIASTINUM: Stable mild enlargement of the cardiac silhouette. BONES AND SOFT TISSUES: No acute osseous lesion. Soft tissues are unremarkable. UPPER ABDOMEN: No free air under the diap hragm. IMPRESSION: Stable cardiomegaly with associated bilateral inters titial edema. Signed by: Dr. Renee Manning M.D. on 09/04/2019 11:53 AM Dictated By: RENEE MANNING MD 1153 Transcribed By: MARY on 09/04 1153 COPY TO: JULIANA REID MANAGER STONE Urine Roqmv1010-38-07 11:12:00* Test Item Value Reference Range Interpretation Comments Urine Color (test code = 5778-6) YELLOW YELLOW [facility] McKinneyUrine Kbrdfhn9369-36-96 11:12:00* Test Item Value Reference Range Interpretation Comments Urine Clarity (test code = 58469-8) CLEAR CLEAR [facility] McKinneyUrine Specific Gqqhxha1263-12-46 11:12:00 * Test Item Value Reference Range Interpretation Comments Urine Specific [place] (test code = 5811-5) 1.015 1.010-1.02 5 [facility] McKinneyUrine yC4706-00-66 11:12:00* Test Item Value Reference Range Interpretation Comments Urine pH (test code = 31658-0) 5.5 5-7 [facility] McKinneyUrine Leukocyte Uetrditb2042-37-32 11:12:00* Test Item Value Reference Range Interpretation Comments Urine Leukocyte Esterase (test code = 5799-2) TRACE NEGATIVE H [facility] McKinneyUrine Lnabwbd4588-02-71 11:12:00* Test Item Value Reference Range Interpretation Comments Urine Nitrite (test code = 88043-0) NEGATIVE NEGATIVE [facility] McKinneyUrine Uksmmft4445-13-71 11:12:00* Test Item Value Reference Range Interpretation Comments Urine Protein (test code = 5804-0) NEGATIVE NEGATIVE [facility] McKinneyUrine Glucose (UA)2019-09-04 11:12:00* Test Item Value Reference Range Interpretation Comments Urine Glucose (UA) (test code = 2349-9) NEGATIVE NEGATIVE [facility] McKinneyUrine Bfuyshm4961-29-14 11:12:00* Test Item Value Reference Range Interpretation Comments Urine Ketones (test code = 49686-7) NEGATIVE NEGATIVE [facility] McKinneyUrine Zdtsjeozmyfx4535-36-12 11:12:00* Test Item Value Reference Range Interpretation Comments Urine Urobilinogen (test code = 06012-3) 0.2 0.2-1 [facility] McKinneyUrine Qbxitybbu9826-10-45 11:12:00* Test Item Value Reference Range Interpretation Comments Urine Bilirubin (test code = 1978-6) NEGATIVE NEGATIVE [facility] McKinneyUrine Cdjxn6662-38-13 11:12:00* Test Item Value Reference Range Interpretation Comments Urine Blood (test code = 60704-7) NEGATIVE NEGATIVE [facility] McKinneyUrine GJO4372-58-33 11:12:00* Test Item Value Reference Range Interpretation Comments Urine WBC (test code = 5821-4) 6-10 0-5 H [facility] McKinneyUrine FFE2370-02-42 11:12:00* Test Item Value Reference Range Interpretation Comments Urine RBC (test code = 82099-5) 0-5 0-5 [facility] McKinneyUrine Xkixueru5453-50-37 11:12:00* Test Item Value Reference Range Interpretation Comments Urine Bacteria (test code = 93321-9) RARE NONE [facility] McKinneyUrine Epithelial Uzqnz2222-86-03 11:12:00 * Test Item Value Reference Range Interpretation Comments Urine Epithelial Cells (test code = 23310-7) FEW NONE [facility] McKinneyBedside Tyyhgaq3902-40-43 11:47:00* Test Item Value Reference Range Interpretation Comments Bedside Glucose (test code = 93570-4) 253 70-120 H Meter ID: [id number] Hospital of Laredoodium Level 2019-04-27 06:20:00* Test Item Value Reference Range Interpretation Comments Sodium Level (test code = 2951-2) 136 136-145 [facility] McKinneyPotassium Kbuvk3589-43-59 06:20:00* Test Item Value Reference Range Interpretation Comments Potassium Level (test code = 2823-3) 4.6 3.5-5.1 [facility] McKinneyChloride Vcheo1981-89-34 06:20:00* Test Item Value Reference Range Interpretation Comments Chloride Level (test code = 2075-0) 96 98-107 L [facility] McKinneyCarbon Dioxide Naqxl6785-66-56 06:20:00* Test Item Value Reference Range Interpretation Comments Carbon Dioxide Level (test code = 2028-9) 31 22-29 H [facility] McKinneyAnion Lwq5860-19-12 06:20:00* Test Item Value Reference Range Interpretation Comments Anion Gap (test code = 58750-0) 13.6 8-16 [facility] McKinneyBlood Urea Hfcrctxk1746-88-71 06:20:00* Test Item Value Reference Range Interpretation Comments Blood Urea Nitrogen (test code = 3094-0) 29 7-26 H [facility] McKinneyCreatinine2019-09-11 06:20:00* Test Item Value Reference Range Interpretation Comments Creatinine (test code = 2160-0) 1.39 0.57-1.11 H [facility] McKinneyBUN/Creatinine Czijn0706-72-27 06:20:00* Test Item Value Reference Range Interpretation Comments BUN/Creatinine Ratio (test code = 3097-3) 21 6-25 [facility] McKinneyEstimat Glomerular Filtration Rate 2019-04-27 06:20:00* Test Item Value Reference Range Interpretation Comments Estimat Glomerular Filtration Rate (test code = 322089324) 38 >60 L Ranges were taken from the National Kidney Disease Education Program and the [facility] literature.Reference ranges:60 or greater: Xvptou45-48 ( for 3 consecutive months): Chronic kidney disease 15 or less: Kidney failureBaylor Scott & White Medical Center – McKinneyGlucose Piugl5068-44-93 06:20:00* Test Item Value Reference Range Interpretation Comments Glucose Level (test code = GSJ6229) 230 74-118 H [facility] McKinneyCalcium Gdrfm4722-11-99 06:20:00* Test Item Value Reference Range Interpretation Comments Calcium Level (test code = 78929-4) 9.3 8.4-10.2 [facility] McKinneyWhite Blood Oduon4232-21-26 06:16:00* Test Item Value Reference Range Interpretation Comments White Blood Count (test code = 6690-2) 8.55 4.8-10.8 [facility] McKinneyRed Blood Kwqbc0127-13-42 06:16:00* Test Item Value Reference Range Interpretation Comments Red Blood Count (test code = 789-8) 3.52 3.6-5.1 L [facility] McKinneyHemoglobin2019-09-11 06:16:00* Test Item Value Reference Range Interpretation Comments Hemoglobin (test code = 47865-7) 11.0 12.0-16.0 L [facility] McKinneyHematocrit2019-09-11 06:16:00* Test Item Value Reference Range Interpretation Comments Hematocrit (test code = 4544-3) 34.3 34.2-44.1 [facility] McKinneyMean Corpuscular Stqrah3321-01-76 06:16:00* Test Item Value Reference Range Interpretation Comments Mean Corpuscular Volume (test code = 787-2) 97.4 81-99 [facility] McKinneyMean Corpuscular Btpglppkkh6163-10-73 06:16:00* Test Item Value Reference Range Interpretation Comments Mean Corpuscular Hemoglobin (test code = 785-6) 31.3 28-32 [facility] McKinneyMean Corpuscular Hemoglobin Concent 2019-04-27 06:16:00* Test Item Value Reference Range Interpretation Comments Mean Corpuscular Hemoglobin Concent (test code = 786-4) 32.1 31-35 [facility] McKinneyRed Cell Distribution Wchdw4617-96-10 06:16:00* Test Item Value Reference Range Interpretation Comments Red Cell Distribution Width (test code = 17152-2) 13.9 11.7 -14.4 [facility] McKinneyPlatelet Gydfz3272-76-13 06:16:00* Test Item Value Reference Range Interpretation Comments Platelet Count (test code = 777-3) 230 140-360 [facility] McKinneyNeutrophils (%) (Auto)2019-04-27 06:16:00 * Test Item Value Reference Range Interpretation Comments Neutrophils (%) (Auto) (test code = 96343-7) 87.9 38.7-80.0 H [facility] McKinneyLymphocytes (%) (Auto)2019-04-27 06:16:00 * Test Item Value Reference Range Interpretation Comments Lymphocytes (%) (Auto) (test code = 736-9) 8.5 18.0-39.1 L [facility] McKinneyMonocytes (%) (Auto)2019-04-27 06:16:00* Test Item Value Reference Range Interpretation Comments Monocytes (%) (Auto) (test code = 5905-5) 2.7 4.4-11.3 L [facility] McKinneyEosinophils (%) (Auto)2019-04-27 06:16:00 * Test Item Value Reference Range Interpretation Comments Eosinophils (%) (Auto) (test code = 713-8) 0.0 0.0-6.0 [facility] McKinneyBasophils (%) (Auto)2019-04-27 06:16:00* Test Item Value Reference Range Interpretation Comments Basophils (%) (Auto) (test code = 706-2) 0.1 0.0-1.0 [facility] McKinneyIM GRANULOCYTES %2019-04-27 06:16:00* Test Item Value Reference Range Interpretation Comments IM GRANULOCYTES % (test code = IM GRANULOCYTES %) 0.8 0.0- 1.0 [facility] McKinneyNeutrophils # (Auto)2019-04-27 06:16:00* Test Item Value Reference Range Interpretation Comments Neutrophils # (Auto) (test code = 751-8) 7.5 2.1-6.9 H [facility] McKinneyLymphocytes # (Auto)2019-04-27 06:16:00* Test Item Value Reference Range Interpretation Comments Lymphocytes # (Auto) (test code = 21842-0) 0.7 1.0-3.2 L [facility] McKinneyMonocytes # (Auto)2019-04-27 06:16:00* Test Item Value Reference Range Interpretation Comments Monocytes # (Auto) (test code = 742-7) 0.2 0.2-0.8 [facility]neyEosinophils # (Auto)2019-04-27 06:16:00* Test Item Value Reference Range Interpretation Comments Eosinophils # (Auto) (test code = 711-2) 0.0 0.0-0.4 [facility]neyBasophils # (Auto)2019-04-27 06:16:00* Test Item Value Reference Range Interpretation Comments Basophils # (Auto) (test code = 704-7) 0.0 0.0-0.1 [facility] McKinneyAbsolute Immature Granulocyte (auto 2019-04-27 06:16:00* Test Item Value Reference Range Interpretation Comments Absolute Immature Granulocyte (auto (tk t code = Absolute Immature Granulocyte (auto) 0.07 0-0.1 [facility] McKinneyMagnesium Fpxyp1187-91-61 06:45:00* Test Item Value Reference Range Interpretation Comments Magnesium Level (test code = 92020-3) 1.7 1.3-2.1 [facility] McKinneyTotal Zlbixmtet4509-12-32 06:45:00* Test Item Value Reference Range Interpretation Comments Total Bilirubin (test code = 1975-2) 0.7 0.2-1.2 [facility] McKinneyAspartate Amino Transf (AST/SGOT) 2019-04-25 06:45:00* Test Item Value Reference Range Interpretation Comments Aspartate Amino Transf (AST/SGOT) (test code = Aspartate Amino Transf (AST/SGOT)) 12 5-34 [facility] McKinneyAlanine Aminotransferase (ALT/SGPT) 2019-04-25 06:45:00* Test Item Value Reference Range Interpretation Comments Alanine Aminotransferase (ALT/SGPT) (test code = 1742-6) 12 0-55 [facility] McKinneyTotal Wqkrrpf5865-82-22 06:45:00* Test Item Value Reference Range Interpretation Comments Total Protein (test code = 2885-2) 5.8 6.5-8.1 L [facility] McKinneyAlbumin2019-09-09 06:45:00* Test Item Value Reference Range Interpretation Comments Albumin (test code = 1751-7) 2.7 3.5-5.0 L [facility] McKinneyGlobulin2019-09-09 06:45:00* Test Item Value Reference Range Interpretation Comments Globulin (test code = 44238-4) 3.1 2.3-3.5 [facility] McKinneyAlbumin/Globulin Yjftm8491-49-92 06:45:00 * Test Item Value Reference Range Interpretation Comments Albumin/Globulin Ratio (test code = 1759-0) 0.9 0.8-2.0 [facility] McKinneyAlkaline Jvmzjmwlmhn3691-43-36 06:45:00* Test Item Value Reference Range Interpretation Comments Alkaline Phosphatase (test code = 6768-6) 79 40-150 [facility] McKinneyLDL Txoeoeunffj8027-68-67 13:01:00* Test Item Value Reference Range Interpretation Comments LDL Cholesterol (test code = 2089-1) 153 60-130 H [facility] McKinneyHDL Ubpyirtolcs0065-29-84 13:01:00* Test Item Value Reference Range Interpretation Comments HDL Cholesterol (test code = 2085-9) 35 40-60 L [facility] McKinneyCholesterol/HDL Ixllk1600-75-16 13:01:00 * Test Item Value Reference Range Interpretation Comments Cholesterol/HDL Ratio (test code = 9830-1) 6.4 3.0-3.6 H [facility] McKinneyTriglycerides Vlmny9118-87-61 07:12:00* Test Item Value Reference Range Interpretation Comments Triglycerides Level (test code = 2571-8) 176 0-149 H [facility] McKinneyCholesterol Pvlxc6857-36-03 07:12:00* Test Item Value Reference Range Interpretation Comments Cholesterol Level (test code = 2093-3) 223 0-199 H Less than 200 mg/dL Low Jivk538 - 239 mg/dL Borderline Wfgd516 m g/dl and greater High Risk [facility] McKinneyCreatine Tzuwqc2354-41-01 14:23:00* Test Item Value Reference Range Interpretation Comments Creatine Kinase (test code = 2157-6) 56 29-168 [facility] McKinneyCreatine Kinase UG2175-78-10 14:23:00* Test Item Value Reference Range Interpretation Comments Creatine Kinase MB (test code = 95491-8) 0.90 0-5.0 [facility] McKinneyTroponin F3210-98-57 14:23:00* Test Item Value Reference Range Interpretation Comments Troponin I (test code = SNF6632) 0.048 0-0.300 [facility] McKinneyThyroid Stimulating Hormone (TSH) 2019-04-23 07:56:00* Test Item Value Reference Range Interpretation Comments Thyroid Stimulating Hormone (TSH) (test code = 21376-9) 10.430 0.350-4.940 H [facility]neyCHEST SINGLE (PORTABLE)2019-04-23 02:07:00 [place] [address] Patient Name: RODGER NICHOLS MR #: [id number] : 1950 Age/Sex: 69/F Req #: [id number] Adm Physician: Ordered by: CADE FORDE MD Report #: [id number] Location: ER Room/Bed: Procedure: [id number] DX/CHEST SINGLE (PORTABLE) Exam Date: 04/23/19 [place] m Time: 0150 REPORT STATUS: Signed EXAMINATION: CHEST SINGLE (PORTABLE) COMPARISON: Chest x-ray 12/22/19 18 INDICATION: Midsternal chest pain ERMD ORDER [id number] Y DISCUSSION: Frontal view of the chest obtained at 0159 hours. HE ART AND MEDIASTINUM: The heart is enlarged. The aorta is tortuous LINES: MediPort catheter terminates in the SVC, stimulator in the lower thoracic sp ine is stable. LUNGS: The lungs are well inflated and clear. Pulmonary vas culature is prominent. No interstitial edema. PLEURA: No pleural effusio n or pneumothorax. BONES AND SOFT TISSUES: No focal osseous lesion. Surgic al clips in the lower neck are stable. IMPRESSION: Cardiomegaly and pu lmonary vascular congestion. Signed by: Dr. Darrell Rodgers MD on 04/23/20 2:10 AM Dictated By: DARRELL RODGERS MD 9 Transcribed By: MARY on 04/23/19209 COPY TO: CADE FORDE MD Activated Partial Thromboplast Time 2019-04-23 01:52:00* Test Item Value Reference Range Interpretation Comments Activated Partial Thromboplast Time (test code = 22890-2) 26.0 23.8-35.5 [facility] VGREHTT0549-62-37 16:17:00 [place] [address] Patient Name: RODGER NICHOLS MR #: [id number] : 1950 Age/Sex: 68/F Req #: [id number] Adm Physician: Ordered by: KRISTY RODRIGUEZ MD Report #: [id number] Location: Room/Bed: Procedure: [id number] US/US THYROID Exam Date: 01/14/19 Exam Time: 1412 REPORT STATUS: Signed EXAMINAT ION: Thyroid ultrasound. CLINICAL HISTORY: Thyroid ectomy 2015, hypothyroid ism COMPARISON: None. . DISCUSSION: Transverse and longitudinal image s of the thyroid were obtained utilizing grayscale and color Doppler modalitie s. The thyroid has been removed. No abnormal mass or fluid collection is identified in the thyroid bed. There is no adenopathy. IMPRESSION: Status post thyroidectomy without mass or fluid collection in the surgical bed. Signed by: Dr. Bayron Church M.D. on 01/14/2019 4:18 PM D ictated By: BAYRON CHURCH MD 17 COPY TO: SADIE RODRIGUEZ MD DIAG MAMM BILATERAL SHIRA CAD RPSGJOP4086-74-29 08:46:47 - DIAG MAMM BILATERAL SHIRA CAD DIGITALBILATERAL DIGITAL DIAGNOSTIC MAMMOGRAM 3D/2D WITH CAD: 12/02/2018CLINICAL: Previous breast ca. Digital breast tomosynthesis was performed in addition to routine CC and MLO views. Current mammographic images were evaluated by either a [employer] M-Vu or a [employer] CAD (computer aided detection system). Comparison is made to exams dated 11/25/2017 ade mogram, 02/19/2017 mammogram, and 02/09/2017 [facility]ogram - [facility] . The tissue of both breasts is heterogeneously dense. This may lower the sensi tivity of mammography. There are benign vascular calcifications and calcificati ons in both breasts. There also are post operative findings in the left breast. No suspicious mass, architectural distortion, malignant type calcification, or lymph node abnormality detected. INCOMPLETE ASSESSMENT: ADDITIONAL IMAGING EVAL UATION RECOMMENDEDNo mammographic evidence of malignancy. Proceed to same day u ltrasound. - BREAST ULTRASOUND BILATERALULTRASOUND OF BOTH BREASTS AND BOTH AXI LLA: 12/02/2018Comparison is made to exams dated 11/25/2017 mammogram, 02/19/2017 m ammogram, and 02/09/2017 mammogram - [facility]. Color flow, jabari l-time, and Doppler ultrasound of both breasts and both axilla were performed. Acevedo scale images of the real-time examination were reviewed. No abnormalities were seen sonographically in either breast or either axilla. IMPRESSION: BENIGN - FOLLOW-UP RECOMMENDEDThere is no sonographic evidence of malignancy. A foll ow-up mammogram in 12 months is recommended. Bret Osborne M.D. et/:11/15 08:46:47 Entry: lc - 12/02/2018 16:25:28Imaging Technologist: Speedy Knapp , [facility] sent: BIRADS 1-2 Combo FU Lette r Mammogram BI-RADS: 0 Indeterminate Ultrasound BI-RADS: 2 BenignBREAST ULTRASOUND MVLQXETEH1141-24-79 08:46:47 - DIAG MAMM BILATERAL SHIRA CAD DIGITALBILATERAL DIGITAL DIAGNOSTIC MAMMOGRAM 3D/2D WITH CAD: 12/02/2018CLINICAL: Previous breast ca. Digital breast tomosynthesis was performed in addition to routine CC and MLO views. Current mammographic images were evaluated by either a [employer] M-Vu or a [employer] CAD (computer aided detection system). Comparison is made to exams dated 11/25/2017 mammogram, 02/19/2017 mammogram, and [facility] The tissue of both breasts is heterogeneously dense. This may lower the sensitivity of mammography. There are benign vascular calcifications and calcifications in both breasts. There also are post operative findings in the left breast. No suspicious mass, architectural distortion, malignant type calcification, or lymph node abnormality detected. INCOMPLETE ASSESSMENT: ADDITIONAL IMAGING EVALUATION RECOMMENDEDNo mammographic evidence of malignancy. Proceed to same day u ltrasound. - BREAST ULTRASOUND BILATERALULTRASOUND OF BOTH BREASTS AND BOTH AXI LLA: 12/02/2018Comparison is made to exams dated 11/25/2017 mammogram, 02/19/2017 m ammogram, and [facility] Color flow, jabari l-time, and Doppler ultrasound of both breasts and both axilla were performed. Acevedo scale images of the real-time examination were reviewed. No abnormalities were seen sonographically in either breast or either axilla. IMPRESSION: BENIGN - FOLLOW-UP RECOMMENDEDThere is no sonographic evidence of malignancy. A foll ow-up mammogram in 12 months is recommended. Bret Osborne M.D. et/:11/15 08:46:47 Entry: lc - 12/02/2018 16:25:28Imaging Technologist: Speedy Knapp [place], [facility] sent: BIRADS 1-2 Combo FU Zhanee r Mammogram BI-RADS: 0 Indeterminate Ultrasound BI-RADS: 2 BenignUrine WBC 2017-12-21 14:17:00* Test Item Value Reference Range Interpretation Comments Urine WBC (test code = 5821-4) NONE 0-5 [facility]neyUrine YFY1238-85-26 14:17:00* Test Item Value Reference Range Interpretation Comments Urine RBC (test code = 03446-1) NONE 0-5 [facility]neyUrine Ulgidxyt5665-87-62 14:17:00* Test Item Value Reference Range Interpretation Comments Urine Bacteria (test code = 44239-1) RARE NONE [facility] McKinneyUrine Epithelial Mnhbh1241-94-63 14:17:00 * Test Item Value Reference Range Interpretation Comments Urine Epithelial Cells (test code = 26332-8) FEW NONE [facility] McKinneyUrine Sjuqs8819-21-27 14:05:00* Test Item Value Reference Range Interpretation Comments Urine Color (test code = 5778-6) YELLOW YELLOW [facility] McKinneyUrine Lylonjo2220-49-74 14:05:00* Test Item Value Reference Range Interpretation Comments Urine Clarity (test code = 99508-2) CLEAR CLEAR [facility]neyUrine Specific Sfdrjdp5294-49-05 14:05:00 * Test Item Value Reference Range Interpretation Comments Urine Specific [place] (test code = 5811-5) 1.020 1.010-1.02 5 [facility] McKinneyUrine iC6095-35-92 14:05:00* Test Item Value Reference Range Interpretation Comments Urine pH (test code = 55704-5) 6 5-7 [facility]neyUrine Leukocyte Idoglmdf8305-48-28 14:05:00* Test Item Value Reference Range Interpretation Comments Urine Leukocyte Esterase (test code = 5799-2) NEGATIVE NEGATIVE [facility]neyUrine Ttzfxbp7461-74-27 14:05:00* Test Item Value Reference Range Interpretation Comments Urine Nitrite (test code = 70901-5) NEGATIVE NEGATIVE [facility]neyUrine Uyeebyo3998-65-56 14:05:00* Test Item Value Reference Range Interpretation Comments Urine Protein (test code = 5804-0) NEGATIVE NEGATIVE [facility]neyUrine Glucose (UA)2017-12-21 14:05:00* Test Item Value Reference Range Interpretation Comments Urine Glucose (UA) (test code = 2349-9) NEGATIVE NEGATIVE [facility] Satinsw1290-67-77 14:05:00* Test Item Value Reference Range Interpretation Comments Urine Ketones (test code = 19203-7) NEGATIVE NEGATIVE [facility] Ntiadifxilfk6084-40-99 14:05:00* Test Item Value Reference Range Interpretation Comments Urine Urobilinogen (test code = 09813-4) 0.2 0.2-1 [facility] Mezvycvuh2582-34-17 14:05:00* Test Item Value Reference Range Interpretation Comments Urine Bilirubin (test code = 1978-6) NEGATIVE NEGATIVE [facility] Tugpz9270-59-06 14:05:00* Test Item Value Reference Range Interpretation Comments Urine Blood (test code = 13829-4) NEGATIVE NEGATIVE [facility]odium Lcfwo3296-99-12 12:26:00* Test Item Value Reference Range Interpretation Comments Sodium Level (test code = 2951-2) 143 136-145 [facility]neyPotassium Ufjbk8419-13-16 12:26:00* Test Item Value Reference Range Interpretation Comments Potassium Level (test code = 2823-3) 3.7 3.5-5.1 [facility] McKinneyChloride Qgjga4568-49-63 12:26:00* Test Item Value Reference Range Interpretation Comments Chloride Level (test code = 2075-0) 106 98-107 [facility] McKinneyCarbon Dioxide Ewffi5843-16-29 12:26:00* Test Item Value Reference Range Interpretation Comments Carbon Dioxide Level (test code = 2028-9) 29 22-29 [facility] McKinneyAnion Lme1589-73-04 12:26:00* Test Item Value Reference Range Interpretation Comments Anion Gap (test code = 33346-4) 11.7 8-16 [facility] McKinneyBlood Urea Lguqfkqc9452-07-76 12:26:00* Test Item Value Reference Range Interpretation Comments Blood Urea Nitrogen (test code = 3094-0) 24 7-26 [facility] McKinneyCreatinine2018-05-07 12:26:00* Test Item Value Reference Range Interpretation Comments Creatinine (test code = 2160-0) 1.08 0.57-1.11 [facility] McKinneyBUN/Creatinine Ddnth2781-59-47 12:26:00* Test Item Value Reference Range Interpretation Comments BUN/Creatinine Ratio (test code = 3097-3) 22 6-25 [facility] McKinneyEstimat Glomerular Filtration Rate 2017-12-21 12:26:00* Test Item Value Reference Range Interpretation Comments Estimat Glomerular Filtration Rate (test code = 63391-6) 51 >60 L Ranges were taken from the National Kidney Disease Education Program and the [facility] Kid[facility] Foundation literature.Reference ranges:60 or greater: Eruioc17-44 ( for 3 consecutive months): Chronic kidney disease 15 or less: Kidney failureBaylor Scott & [facility] Center – McKinneyGlucose Kxpyv2542-59-45 12:26:00* Test Item Value Reference Range Interpretation Comments Glucose Level (test code = MOT7818) 108 74-118 [facility] McKinneyCalcium Dohfb1640-81-87 12:26:00* Test Item Value Reference Range Interpretation Comments Calcium Level (test code = 52949-2) 9.7 8.4-10.2 [facility] McKinneyTotal Jwbqnfkpd8697-50-53 12:26:00* Test Item Value Reference Range Interpretation Comments Total Bilirubin (test code = 1975-2) 0.5 0.2-1.2 [facility] McKinneyAspartate Amino Transf (AST/SGOT) 2017-12-21 12:26:00* Test Item Value Reference Range Interpretation Comments Aspartate Amino Transf (AST/SGOT) (test code = Aspartate Amino Transf (AST/SGOT)) 12 5-34 [facility] McKinneyAlanine Aminotransferase (ALT/SGPT) 2017-12-21 12:26:00* Test Item Value Reference Range Interpretation Comments Alanine Aminotransferase (ALT/SGPT) (test code = 1742-6) 11 0-55 [facility] McKinneyTotal Hgpdvog8544-30-06 12:26:00* Test Item Value Reference Range Interpretation Comments Total Protein (test code = 2885-2) 6.8 6.5-8.1 [facility] McKinneyAlbumin2018-05-07 12:26:00* Test Item Value Reference Range Interpretation Comments Albumin (test code = 1751-7) 3.1 3.5-5.0 L [facility] McKinneyGlobulin2018-05-07 12:26:00* Test Item Value Reference Range Interpretation Comments Globulin (test code = 00719-5) 3.7 2.3-3.5 H [facility] McKinneyAlbumin/Globulin Sopng9445-00-58 12:26:00 * Test Item Value Reference Range Interpretation Comments Albumin/Globulin Ratio (test code = 1759-0) 0.8 0.8-2.0 [facility] McKinneyAlkaline Whmqzqzttlz1930-00-37 12:26:00* Test Item Value Reference Range Interpretation Comments Alkaline Phosphatase (test code = 6768-6) 79 40-150 [facility] McKinneyWhite Blood Zjkvf4157-96-48 12:10:00* Test Item Value Reference Range Interpretation Comments White Blood Count (test code = 6690-2) 6.10 4.8-10.8 [facility] McKinneyRed Blood Fpphs2099-09-35 12:10:00* Test Item Value Reference Range Interpretation Comments Red Blood Count (test code = 789-8) 4.10 3.6-5.1 [facility] McKinneyHemoglobin2018-05-07 12:10:00* Test Item Value Reference Range Interpretation Comments Hemoglobin (test code = 23820-8) 13.0 12.0-16.0 [facility] McKinneyHematocrit2018-05-07 12:10:00* Test Item Value Reference Range Interpretation Comments Hematocrit (test code = 4544-3) 39.3 34.2-44.1 [facility] McKinneyMean Corpuscular Fucglt1351-63-66 12:10:00* Test Item Value Reference Range Interpretation Comments Mean Corpuscular Volume (test code = 787-2) 95.9 81-99 [facility] McKinneyMean Corpuscular Cenopoumvc0198-84-64 12:10:00* Test Item Value Reference Range Interpretation Comments Mean Corpuscular Hemoglobin (test code = 785-6) 31.7 28-32 [facility] McKinneyMean Corpuscular Hemoglobin Concent 2017-12-21 12:10:00* Test Item Value Reference Range Interpretation Comments Mean Corpuscular Hemoglobin Concent (test code = 786-4) 33.1 31-35 [facility] McKinneyRed Cell Distribution Ujjmh6910-53-24 12:10:00* Test Item Value Reference Range Interpretation Comments Red Cell Distribution Width (test code = 15790-4) 15.5 11.7 -14.4 H [facility] McKinneyPlatelet Tluru1391-92-08 12:10:00* Test Item Value Reference Range Interpretation Comments Platelet Count (test code = 777-3) 221 140-360 [facility] McKinneyNeutrophils (%) (Auto)2017-12-21 12:10:00 * Test Item Value Reference Range Interpretation Comments Neutrophils (%) (Auto) (test code = 65691-1) 61.1 38.7-80.0 [facility] McKinneyLymphocytes (%) (Auto)2017-12-21 12:10:00 * Test Item Value Reference Range Interpretation Comments Lymphocytes (%) (Auto) (test code = 736-9) 23.8 18.0-39.1 [facility] McKinneyMonocytes (%) (Auto)2017-12-21 12:10:00* Test Item Value Reference Range Interpretation Comments Monocytes (%) (Auto) (test code = 5905-5) 12.8 4.4-11.3 H [facility] McKinneyEosinophils (%) (Auto)2017-12-21 12:10:00 * Test Item Value Reference Range Interpretation Comments Eosinophils (%) (Auto) (test code = 713-8) 1.3 0.0-6.0 [facility] McKinneyBasophils (%) (Auto)2017-12-21 12:10:00* Test Item Value Reference Range Interpretation Comments Basophils (%) (Auto) (test code = 706-2) 0.3 0.0-1.0 [facility] McKinneyIM GRANULOCYTES %2017-12-21 12:10:00* Test Item Value Reference Range Interpretation Comments IM GRANULOCYTES % (test code = IM GRANULOCYTES %) 0.7 0.0- 1.0 [facility] McKinneyNeutrophils # (Auto)2017-12-21 12:10:00* Test Item Value Reference Range Interpretation Comments Neutrophils # (Auto) (test code = 751-8) 3.7 2.1-6.9 [facility] McKinneyLymphocytes # (Auto)2017-12-21 12:10:00* Test Item Value Reference Range Interpretation Comments Lymphocytes # (Auto) (test code = 40405-0) 1.5 1.0-3.2 [facility] McKinneyMonocytes # (Auto)2017-12-21 12:10:00* Test Item Value Reference Range Interpretation Comments Monocytes # (Auto) (test code = 742-7) 0.8 0.2-0.8 [facility] McKinneyEosinophils # (Auto)2017-12-21 12:10:00* Test Item Value Reference Range Interpretation Comments Eosinophils # (Auto) (test code = 711-2) 0.1 0.0-0.4 [facility] McKinneyBasophils # (Auto)2017-12-21 12:10:00* Test Item Value Reference Range Interpretation Comments Basophils # (Auto) (test code = 704-7) 0.0 0.0-0.1 [facility] McKinneyAbsolute Immature Granulocyte (auto 2017-12-21 12:10:00* Test Item Value Reference Range Interpretation Comments Absolute Immature Granulocyte (auto (tk t code = Absolute Immature Granulocyte (auto) 0.04 0-0.1 [facility] McKinneyBedside Pxkppgz8584-01-20 11:44:00* Test Item Value Reference Range Interpretation Comments Bedside Glucose (test code = 90953-2) 148 70-120 H Meter ID: [id number] [facility] HospitalBed[facility] Glucose 2017-12-04 11:44:00* Test Item Value Reference Range Interpretation Comments Bedside Glucose (test code = 02948-4) 148 70-120 H Meter ID: [id number] [facility] HospitalCreatine Kinase MB 2017-12-02 16:35:00* Test Item Value Reference Range Interpretation Comments Creatine Kinase MB (test code = 11006-7) 0.90 0-5.0 [facility] McKinneyTroponin N3182-52-09 16:35:00* Test Item Value Reference Range Interpretation Comments Troponin I (test code = IHX6665) 0.001 0-0.300 [facility] McKinneyCreatine Kinase EL7850-48-10 16:35:00* Test Item Value Reference Range Interpretation Comments Creatine Kinase MB (test code = 48165-2) 0.90 0-5.0 [facility] McKinneyTroponin B1671-72-80 16:35:00* Test Item Value Reference Range Interpretation Comments Troponin I (test code = HPY7706) 0.001 0-0.300 [facility] McKinneyCreatine Skvxbd5669-01-93 16:18:00* Test Item Value Reference Range Interpretation Comments Creatine Kinase (test code = 2157-6) 55 29-168 [facility] McKinneyCreatine Xxpqil1471-27-21 16:18:00* Test Item Value Reference Range Interpretation Comments Creatine Kinase (test code = 2157-6) 55 29-168 [facility] Dallasodium Cbwoh9989-62-10 06:36:00* Test Item Value Reference Range Interpretation Comments Sodium Level (test code = 2951-2) 142 136-145 [facility]neyPotassium Tzjnt6900-58-70 06:36:00* Test Item Value Reference Range Interpretation Comments Potassium Level (test code = 2823-3) 3.7 3.5-5.1 [facility] McKinneyChloride Ihusw0847-72-72 06:36:00* Test Item Value Reference Range Interpretation Comments Chloride Level (test code = 2075-0) 104 98-107 [facility] McKinneyCarbon Dioxide Vjxka3645-80-63 06:36:00* Test Item Value Reference Range Interpretation Comments Carbon Dioxide Level (test code = 2028-9) 28 22-29 [facility] McKinneyAnion Wri0629-73-45 06:36:00* Test Item Value Reference Range Interpretation Comments Anion Gap (test code = 75494-7) 13.7 8-16 [facility] McKinneyBlood Urea Iojaitmc2111-30-60 06:36:00* Test Item Value Reference Range Interpretation Comments Blood Urea Nitrogen (test code = 3094-0) 15 7-26 [facility] McKinneyCreatinine2018-04-18 06:36:00* Test Item Value Reference Range Interpretation Comments Creatinine (test code = 2160-0) 0.80 0.57-1.11 [facility] McKinneyBUN/Creatinine Jyihu6432-22-91 06:36:00* Test Item Value Reference Range Interpretation Comments BUN/Creatinine Ratio (test code = 3097-3) 19 6-25 [facility] McKinneyEstimat Glomerular Filtration Rate 2017-12-02 06:36:00* Test Item Value Reference Range Interpretation Comments Estimat Glomerular Filtration Rate (test code = 85809-9) 60- >60 Ranges were taken from the National Kidney Disease Education Program and the [facility] literature.Reference ranges:60 or greater: Dzbotc47-02 ( for 3 consecutive months): Chronic kidney disease 15 or less: Kidney failureBaylor Scott & [facility] – McKinneyGlucose Zeyfp3631-83-07 06:36:00* Test Item Value Reference Range Interpretation Comments Glucose Level (test code = ZQZ2109) 82 74-118 [facility] McKinneyCalcium Dpvae7792-75-63 06:36:00* Test Item Value Reference Range Interpretation Comments Calcium Level (test code = 14482-7) 9.3 8.4-10.2 [facility] McKinneyWhite Blood Pskyh0232-79-83 06:16:00* Test Item Value Reference Range Interpretation Comments White Blood Count (test code = 6690-2) 5.11 4.8-10.8 [facility] McKinneyRed Blood Ridqx5265-85-20 06:16:00* Test Item Value Reference Range Interpretation Comments Red Blood Count (test code = 789-8) 3.86 3.6-5.1 [facility] McKinneyHemoglobin2018-04-18 06:16:00* Test Item Value Reference Range Interpretation Comments Hemoglobin (test code = 99966-7) 12.1 12.0-16.0 [facility]neyHematocrit2018-04-18 06:16:00* Test Item Value Reference Range Interpretation Comments Hematocrit (test code = 4544-3) 36.2 34.2-44.1 [facility] McKinneyMean Corpuscular Qvfeow3726-39-09 06:16:00* Test Item Value Reference Range Interpretation Comments Mean Corpuscular Volume (test code = 787-2) 93.8 81-99 [facility] McKinneyMean Corpuscular Nopfugzytm6359-79-01 06:16:00* Test Item Value Reference Range Interpretation Comments Mean Corpuscular Hemoglobin (test code = 785-6) 31.3 28-32 [facility] Hemoglobin Concent 2017-12-02 06:16:00* Test Item Value Reference Range Interpretation Comments Mean Corpuscular Hemoglobin Concent (test code = 786-4) 33.4 31-35 [facility] McKinneyRed Cell Distribution Umfdl8373-19-24 06:16:00* Test Item Value Reference Range Interpretation Comments Red Cell Distribution Width (test code = 31469-8) 14.9 11.7 -14.4 H [facility] McKinneyPlatelet Qsapl7816-64-51 06:16:00* Test Item Value Reference Range Interpretation Comments Platelet Count (test code = 777-3) 211 140-360 [facility] McKinneyNeutrophils (%) (Auto)2017-12-02 06:16:00 * Test Item Value Reference Range Interpretation Comments Neutrophils (%) (Auto) (test code = 24329-8) 63.0 38.7-80.0 [facility] McKinneyLymphocytes (%) (Auto)2017-12-02 06:16:00 * Test Item Value Reference Range Interpretation Comments Lymphocytes (%) (Auto) (test code = 736-9) 22.1 18.0-39.1 [facility] McKinneyMonocytes (%) (Auto)2017-12-02 06:16:00* Test Item Value Reference Range Interpretation Comments Monocytes (%) (Auto) (test code = 5905-5) 12.1 4.4-11.3 H [facility]neyEosinophils (%) (Auto)2017-12-02 06:16:00 * Test Item Value Reference Range Interpretation Comments Eosinophils (%) (Auto) (test code = 713-8) 2.0 0.0-6.0 [facility]neyBasophils (%) (Auto)2017-12-02 06:16:00* Test Item Value Reference Range Interpretation Comments Basophils (%) (Auto) (test code = 706-2) 0.4 0.0-1.0 [facility] McKinneyIM GRANULOCYTES %2017-12-02 06:16:00* Test Item Value Reference Range Interpretation Comments IM GRANULOCYTES % (test code = IM GRANULOCYTES %) 0.4 0.0- 1.0 [facility]neyNeutrophils # (Auto)2017-12-02 06:16:00* Test Item Value Reference Range Interpretation Comments Neutrophils # (Auto) (test code = 751-8) 3.2 2.1-6.9 [facility] McKinneyLymphocytes # (Auto)2017-12-02 06:16:00* Test Item Value Reference Range Interpretation Comments Lymphocytes # (Auto) (test code = 27503-3) 1.1 1.0-3.2 [facility]neyMonocytes # (Auto)2017-12-02 06:16:00* Test Item Value Reference Range Interpretation Comments Monocytes # (Auto) (test code = 742-7) 0.6 0.2-0.8 [facility]neyEosinophils # (Auto)2017-12-02 06:16:00* Test Item Value Reference Range Interpretation Comments Eosinophils # (Auto) (test code = 711-2) 0.1 0.0-0.4 [facility]neyBasophils # (Auto)2017-12-02 06:16:00* Test Item Value Reference Range Interpretation Comments Basophils # (Auto) (test code = 704-7) 0.0 0.0-0.1 [facility] McKinneyAbsolute Immature Granulocyte (auto 2017-12-02 06:16:00* Test Item Value Reference Range Interpretation Comments Absolute Immature Granulocyte (auto (tk t code = Absolute Immature Granulocyte (auto) 0.02 0-0.1 [facility] Vcjwrcdlx4590-26-10 07:09:00* Test Item Value Reference Range Interpretation Comments Total Bilirubin (test code = 1975-2) 1.1 0.2-1.2 [facility] McKinneyAspartate Amino Transf (AST/SGOT) 2017-12-01 07:09:00* Test Item Value Reference Range Interpretation Comments Aspartate Amino Transf (AST/SGOT) (test code = Aspartate Amino Transf (AST/SGOT)) 19 5-34 [facility] McKinneyAlanine Aminotransferase (ALT/SGPT) 2017-12-01 07:09:00* Test Item Value Reference Range Interpretation Comments Alanine Aminotransferase (ALT/SGPT) (test code = 1742-6) 19 0-55 [facility] McKinneyTotal Ginfqre7889-42-18 07:09:00* Test Item Value Reference Range Interpretation Comments Total Protein (test code = 2885-2) 6.4 6.5-8.1 L [facility] McKinneyAlbumin2018-04-17 07:09:00* Test Item Value Reference Range Interpretation Comments Albumin (test code = 1751-7) 3.0 3.5-5.0 L [facility] McKinneyGlobulin2018-04-17 07:09:00* Test Item Value Reference Range Interpretation Comments Globulin (test code = 21547-0) 3.4 2.3-3.5 [facility] McKinneyAlbumin/Globulin Jprpi0281-35-68 07:09:00 * Test Item Value Reference Range Interpretation Comments Albumin/Globulin Ratio (test code = 1759-0) 0.9 0.8-2.0 [facility] McKinneyAlkaline Fuvnayrwyxd1892-02-43 07:09:00* Test Item Value Reference Range Interpretation Comments Alkaline Phosphatase (test code = 6768-6) 77 40-150 [facility] McKinneyTriglycerides Erwmc8228-44-18 07:09:00* Test Item Value Reference Range Interpretation Comments Triglycerides Level (test code = 2571-8) 74 0-149 [facility] McKinneyCholesterol Jonzc6613-26-94 07:09:00* Test Item Value Reference Range Interpretation Comments Cholesterol Level (test code = 2093-3) 153 0-199 Less than 200 mg/dL Low Nstv035 - 239 mg/dL Borderline Zhai373 m g/dl and greater High Risk [facility] McKinneyLDL Uhmwftkwrvf0802-24-27 07:09:00* Test Item Value Reference Range Interpretation Comments LDL Cholesterol (test code = 2089-1) 84 60-130 [facility] McKinneyHDL Tgdndnkbpbf3649-05-01 07:09:00* Test Item Value Reference Range Interpretation Comments HDL Cholesterol (test code = 2085-9) 54 40-60 [facility] McKinneyCholesterol/HDL Axyku2230-55-95 07:09:00 * Test Item Value Reference Range Interpretation Comments Cholesterol/HDL Ratio (test code = 9830-1) 2.8 3.0-3.6 L [facility] McKinneyTriglycerides Mytft2202-18-86 07:09:00* Test Item Value Reference Range Interpretation Comments Triglycerides Level (test code = 2571-8) 74 0-149 [facility] McKinneyCholesterol Cwojq6175-48-30 07:09:00* Test Item Value Reference Range Interpretation Comments Cholesterol Level (test code = 2093-3) 153 0-199 Less than 200 mg/dL Low Hneo345 - 239 mg/dL Borderline Fwvd417 m g/dl and greater High Risk [facility] McKinneyLDL Dxjawgenrpc5801-78-98 07:09:00* Test Item Value Reference Range Interpretation Comments LDL Cholesterol (test code = 2089-1) 84 60-130 [facility] McKinneyHDL Tkfdrdupjlo8438-55-09 07:09:00* Test Item Value Reference Range Interpretation Comments HDL Cholesterol (test code = 2085-9) 54 40-60 [facility] McKinneyCholesterol/HDL Rfiuo1949-85-37 07:09:00 * Test Item Value Reference Range Interpretation Comments Cholesterol/HDL Ratio (test code = 9830-1) 2.8 3.0-3.6 L [facility] McKinneyB-Type Natriuretic Izsrsra6818-67-07 20:10:00* Test Item Value Reference Range Interpretation Comments B-Type Natriuretic Peptide (test code = 40244-0) 85.2 0-100 [facility] McKinneyB-Type Natriuretic Ikiotwk5404-30-45 20:10:00* Test Item Value Reference Range Interpretation Comments B-Type Natriuretic Peptide (test code = 72338-6) 85.2 0-100 [facility] McKinneyProthrombin Ergm1148-12-45 19:55:00* Test Item Value Reference Range Interpretation Comments Prothrombin Time (test code = 5902-2) 12.1 11.9-14.5 [facility] McKinneyProthromb Time International Ratio 2017-11-30 19:55:00* Test Item Value Reference Range Interpretation Comments Prothromb Time International Ratio (test code = 6301-6) 0.97 Oral Anticoagulant Therapy INR Values:1. Low Intensity Therapy 1.5 - 2.02 . Moderate Intensity Therapy 2.0 - 3.03. High Intensity Therapy(1) 2.5 - 3. 54. High Intensity Therapy(2) 3.0 - 4.05. Panic Value INR > 5.0 [facility] McKinneyActivated Partial Thromboplast Time 2017-11-30 19:55:00* Test Item Value Reference Range Interpretation Comments Activated Partial Thromboplast Time (test code = 14361-6) 26.8 23.8-35.5 [facility] McKinneyProthrombin Uixc9613-36-59 19:55:00* Test Item Value Reference Range Interpretation Comments Prothrombin Time (test code = 5902-2) 12.1 11.9-14.5 [facility] McKinneyProthromb Time International Ratio 2017-11-30 19:55:00* Test Item Value Reference Range Interpretation Comments Prothromb Time International Ratio (test code = 6301-6) 0.97 Oral Anticoagulant Therapy INR Values:1. Low Intensity Therapy 1.5 - 2.02 . Moderate Intensity Therapy 2.0 - 3.03. High Intensity Therapy(1) 2.5 - 3. 54. High Intensity Therapy(2) 3.0 - 4.05. Panic Value INR > 5.0 [facility] McKinneyActivated Partial Thromboplast Time 2017-11-30 19:55:00* Test Item Value Reference Range Interpretation Comments Activated Partial Thromboplast Time (test code = 77466-2) 26.8 23.8-35.5 [facility] McKinneyErythrocyte Sedimentation Azmq9864-77-94 23:17:00* Test Item Value Reference Range Interpretation Comments Erythrocyte Sedimentation Rate (test code = 4537-7) 48 0- 20 H [facility] McKinneyErythrocyte Sedimentation Csqn7785-77-03 23:17:00* Test Item Value Reference Range Interpretation Comments Erythrocyte Sedimentation Rate (test code = 4537-7) 48 0- 20 H [facility] McKinneyErythrocyte Sedimentation Euhw0728-32-05 23:17:00* Test Item Value Reference Range Interpretation Comments Erythrocyte Sedimentation Rate (test code = 4537-7) 48 0- 20 H [facility] McKinneyCreatine Kinase [id number] 22:53:00* Test Item Value Reference Range Interpretation Comments Creatine Kinase MB (test code = 12282-1) 1.50 0-5.0 [facility] McKinneyTroponin [id number] 22:53:00* Test Item Value Reference Range Interpretation Comments Troponin I (test code = NUX9106) 0.006 0-0.300 [facility] McKinneyProthrombin Xlwt2599-92-19 22:47:00* Test Item Value Reference Range Interpretation Comments Prothrombin Time (test code = 5902-2) 12.6 11.9-14.5 [facility] McKinneyProthromb Time International Ratio 2017-10-29 22:47:00* Test Item Value Reference Range Interpretation Comments Prothromb Time International Ratio (test code = 6301-6) 1.02 Oral Anticoagulant Therapy INR Values:1. Low Intensity Therapy 1.5 - 2.02 . Moderate Intensity Therapy 2.0 - 3.03. High Intensity Therapy(1) 2.5 - 3. 54. High Intensity Therapy(2) 3.0 - 4.05. Panic Value INR > 5.0 [facility] McKinneyActivated Partial Thromboplast Time 2017-10-29 22:47:00* Test Item Value Reference Range Interpretation Comments Activated Partial Thromboplast Time (test code = 14508-7) 63.3 23.8-35.5 [facility] Dallasodium Fmjkx6860-24-54 22:47:00* Test Item Value Reference Range Interpretation Comments Sodium Level (test code = 2951-2) 140 136-145 [facility] McKinneyPotassium Kscsy9994-84-18 22:47:00* Test Item Value Reference Range Interpretation Comments Potassium Level (test code = 2823-3) 4.1 3.5-5.1 [facility] McKinneyChloride Gyqca4918-76-74 22:47:00* Test Item Value Reference Range Interpretation Comments Chloride Level (test code = 2075-0) 103 98-107 [facility] McKinneyCarbon Dioxide Ffcme6775-84-24 22:47:00* Test Item Value Reference Range Interpretation Comments Carbon Dioxide Level (test code = 2028-9) 27 22-29 [facility] McKinneyAnion Cgm7415-29-42 22:47:00* Test Item Value Reference Range Interpretation Comments Anion Gap (test code = 27179-3) 14.1 8-16 [facility] McKinneyBlood Urea Nnbphbsg5060-69-18 22:47:00* Test Item Value Reference Range Interpretation Comments Blood Urea Nitrogen (test code = 3094-0) 35 7-26 H [facility] McKinneyCreatinine2018-03-15 22:47:00* Test Item Value Reference Range Interpretation Comments Creatinine (test code = 2160-0) 0.91 0.57-1.11 [facility] McKinneyBUN/Creatinine Ernoz2209-98-62 22:47:00* Test Item Value Reference Range Interpretation Comments BUN/Creatinine Ratio (test code = 3097-3) 38 6-25 H [facility] McKinneyEstimat Glomerular Filtration Rate 2017-10-29 22:47:00* Test Item Value Reference Range Interpretation Comments Estimat Glomerular Filtration Rate (test code = 04739-6) 60- >60 Ranges were taken from the National Kidney Disease Education Program and the [facility]ney Foundation literature.Reference ranges:60 or greater: Kdpoip20-97 ( for 3 consecutive months): Chronic kidney disease 15 or less: Kidney failureBaylor Scott & White Medical Center – McKinneyGlucose Vloju7439-67-12 22:47:00* Test Item Value Reference Range Interpretation Comments Glucose Level (test code = TFC1440) 108 74-118 [facility] McKinneyCalcium Ititr2615-38-04 22:47:00* Test Item Value Reference Range Interpretation Comments Calcium Level (test code = 89726-8) 9.4 8.4-10.2 [facility] McKinneyMagnesium Thdlq4115-27-06 22:47:00* Test Item Value Reference Range Interpretation Comments Magnesium Level (test code = 91524-7) 1.9 1.3-2.1 [facility] McKinneyTotal Udsijyhwh7576-80-44 22:47:00* Test Item Value Reference Range Interpretation Comments Total Bilirubin (test code = 1975-2) 0.9 0.2-1.2 [facility] McKinneyAspartate Amino Transf (AST/SGOT) 2017-10-29 22:47:00* Test Item Value Reference Range Interpretation Comments Aspartate Amino Transf (AST/SGOT) (test code = Aspartate Amino Transf (AST/SGOT)) 21 5-34 [facility] McKinneyAlanine Aminotransferase (ALT/SGPT) 2017-10-29 22:47:00* Test Item Value Reference Range Interpretation Comments Alanine Aminotransferase (ALT/SGPT) (test code = 1742-6) 17 0-55 [facility] McKinneyTotal Zltcmig7679-13-28 22:47:00* Test Item Value Reference Range Interpretation Comments Total Protein (test code = 2885-2) 7.9 6.5-8.1 [facility] McKinneyAlbumin2018-03-15 22:47:00* Test Item Value Reference Range Interpretation Comments Albumin (test code = 1751-7) 4.0 3.5-5.0 [facility] McKinneyGlobulin2018-03-15 22:47:00* Test Item Value Reference Range Interpretation Comments Globulin (test code = 16118-2) 3.9 2.3-3.5 H [facility] McKinneyAlbumin/Globulin Qltnh1708-68-96 22:47:00 * Test Item Value Reference Range Interpretation Comments Albumin/Globulin Ratio (test code = 1759-0) 1.0 0.8-2.0 [facility] McKinneyAlkaline Xkitxxfxgfp4908-54-77 22:47:00* Test Item Value Reference Range Interpretation Comments Alkaline Phosphatase (test code = 6768-6) 85 40-150 [facility] McKinneyCreatine Ywbnsu2300-84-44 22:47:00* Test Item Value Reference Range Interpretation Comments Creatine Kinase (test code = 2157-6) 104 29-168 [facility] McKinneyMagnesium Yabsx3775-54-82 22:47:00* Test Item Value Reference Range Interpretation Comments Magnesium Level (test code = 30673-9) 1.9 1.3-2.1 [facility] McKinneyMagnesium Mwbup3890-39-26 22:47:00* Test Item Value Reference Range Interpretation Comments Magnesium Level (test code = 98269-0) 1.9 1.3-2.1 [facility] McKinneyWhite Blood Aakof1799-20-68 22:34:00* Test Item Value Reference Range Interpretation Comments White Blood Count (test code = 6690-2) 7.18 4.8-10.8 [facility] McKinneyRed Blood Ujqwa4314-72-54 22:34:00* Test Item Value Reference Range Interpretation Comments Red Blood Count (test code = 789-8) 4.25 3.6-5.1 [facility] McKinneyHemoglobin2018-03-15 22:34:00* Test Item Value Reference Range Interpretation Comments Hemoglobin (test code = 99566-1) 13.4 12.0-16.0 [facility] McKinneyHematocrit2018-03-15 22:34:00* Test Item Value Reference Range Interpretation Comments Hematocrit (test code = 4544-3) 39.8 34.2-44.1 [facility] McKinneyMean Corpuscular Vuadcw0852-74-45 22:34:00* Test Item Value Reference Range Interpretation Comments Mean Corpuscular Volume (test code = 787-2) 93.6 81-99 [facility] McKinneyMean Corpuscular Uyrbrcoavk3012-28-21 22:34:00* Test Item Value Reference Range Interpretation Comments Mean Corpuscular Hemoglobin (test code = 785-6) 31.5 28-32 [facility] McKinneyMean Corpuscular Hemoglobin Concent 2017-10-29 22:34:00* Test Item Value Reference Range Interpretation Comments Mean Corpuscular Hemoglobin Concent (test code = 786-4) 33.7 31-35 [facility] McKinneyRed Cell Distribution Cskyo7435-05-23 22:34:00* Test Item Value Reference Range Interpretation Comments Red Cell Distribution Width (test code = 47647-4) 14.7 11.7 -14.4 H [facility] McKinneyPlatelet Ebsnv6379-79-84 22:34:00* Test Item Value Reference Range Interpretation Comments Platelet Count (test code = 777-3) 265 140-360 [facility] McKinneyNeutrophils (%) (Auto)2017-10-29 22:34:00 * Test Item Value Reference Range Interpretation Comments Neutrophils (%) (Auto) (test code = 15967-6) 68.2 38.7-80.0 [facility] McKinneyLymphocytes (%) (Auto)2017-10-29 22:34:00 * Test Item Value Reference Range Interpretation Comments Lymphocytes (%) (Auto) (test code = 736-9) 23.0 18.0-39.1 [facility] McKinneyMonocytes (%) (Auto)2017-10-29 22:34:00* Test Item Value Reference Range Interpretation Comments Monocytes (%) (Auto) (test code = 5905-5) 7.0 4.4-11.3 [facility] McKinneyEosinophils (%) (Auto)2017-10-29 22:34:00 * Test Item Value Reference Range Interpretation Comments Eosinophils (%) (Auto) (test code = 713-8) 1.1 0.0-6.0 [facility] McKinneyBasophils (%) (Auto)2017-10-29 22:34:00* Test Item Value Reference Range Interpretation Comments Basophils (%) (Auto) (test code = 706-2) 0.4 0.0-1.0 [facility] McKinneyIM GRANULOCYTES %2017-10-29 22:34:00* Test Item Value Reference Range Interpretation Comments IM GRANULOCYTES % (test code = IM GRANULOCYTES %) 0.3 0.0- 1.0 [facility] McKinneyNeutrophils # (Auto)2017-10-29 22:34:00* Test Item Value Reference Range Interpretation Comments Neutrophils # (Auto) (test code = 751-8) 4.9 2.1-6.9 [facility] McKinneyLymphocytes # (Auto)2017-10-29 22:34:00* Test Item Value Reference Range Interpretation Comments Lymphocytes # (Auto) (test code = 70075-5) 1.7 1.0-3.2 [facility] McKinneyMonocytes # (Auto)2017-10-29 22:34:00* Test Item Value Reference Range Interpretation Comments Monocytes # (Auto) (test code = 742-7) 0.5 0.2-0.8 [facility] McKinneyEosinophils # (Auto)2017-10-29 22:34:00* Test Item Value Reference Range Interpretation Comments Eosinophils # (Auto) (test code = 711-2) 0.1 0.0-0.4 [facility] McKinneyBasophils # (Auto)2017-10-29 22:34:00* Test Item Value Reference Range Interpretation Comments Basophils # (Auto) (test code = 704-7) 0.0 0.0-0.1 [facility] McKinneyAbsolute Immature Granulocyte (auto 2017-10-29 22:34:00* Test Item Value Reference Range Interpretation Comments Absolute Immature Granulocyte (auto (tk t code = Absolute Immature Granulocyte (auto) 0.02 0-0.1 [facility] McKinneyVitamin B6 Drtki1715-54-46 05:46:00* Test Item Value Reference Range Interpretation Comments Vitamin B6 Level (test code = 2900-9) 8.8 2.0-32.8 This test was developed and its performance characteristicsdetermined by [employer] . It has not been cleared orapproved by the Food and Drug Administration.Perform ed at: [address] [id number] Dir delaney: Sunday Alejandro MD, Phone: [phone] Scott & White Medical Center – McKinneyVitamin B6 Scqra0265-88-12 05:46:00* Test Item Value Reference Range Interpretation Comments Vitamin B6 Level (test code = 2900-9) 8.8 2.0-32.8 This test was developed and its performance characteristicsdetermined by [employer] . It has not been cleared orapproved by the Food and Drug Administration.Perform ed at: [address] [id number] Dir delaney: Sunday Alejandro MD, Phone: [phone] Scott & White Medical Center – McKinneyVitamin B6 Hbhmk1632-69-37 05:46:00* Test Item Value Reference Range Interpretation Comments Vitamin B6 Level (test code = 2900-9) 8.8 2.0-32.8 This test was developed and its performance characteristicsdetermined by [employer] . It has not been cleared orapproved by the Food and Drug Administration.Perform ed at: [address] [id number] Dir delaney: Sunday Alejandro MD, Phone: [phone] Scott & White Medical Center – McKinneyBedside Eejqzvp8975-64-10 11:58:00* Test Item Value Reference Range Interpretation Comments Bedside Glucose (test code = 63132-2) 137 70-120 H Meter ID: [id number] [facility]Bed[facility] Glucose 2017-10-17 11:58:00* Test Item Value Reference Range Interpretation Comments Bedside Glucose (test code = 01269-9) 137 70-120 H Meter ID: [id number] [facility] 2017-10-16 12:55:00* Test Item Value Reference Range Interpretation Comments C-Reactive Protein (test code = 1987-5) 1.5 0.0-4.9 Performed at: [address] [id number] Director: Italo Jyoner MD, Phone: [phone] Scott & White [facility] Center – McKinneyC-Reactive Stuiilw4468-81-92 12:55:00* Test Item Value Reference Range Interpretation Comments C-Reactive Protein (test code = 1987-12) 1.5 0.0-4.9 Performed at: [address] [id number] Director: Italo Joyner MD, Phone: [phone] Scott & White [facility] Center – McKinneyC-Reactive Uhiiohw2021-74-45 12:55:00* Test Item Value Reference Range Interpretation Comments C-Reactive Protein (test code = 1987-12) 1.5 0.0-4.9 Performed at: [address] [id number] Director: Iatlo Joyner MD, Phone: [phone] Scott & White Medical Center – McKinneyC-Reactive Gbdphdd3296-31-42 12:55:00* Test Item Value Reference Range Interpretation Comments C-Reactive Protein (test code = 1987-12) 1.5 0.0-4.9 Performed at: [address] [id number] Director: Italo Joyner MD, Phone: [phone]'s Medical Center Dallasodium Wzzeu4676-50-15 07:22:00* Test Item Value Reference Range Interpretation Comments Sodium Level (test code = 2951-2) 139 136-145 [facility] McKinneyPotassium Ampwg5334-32-59 07:22:00* Test Item Value Reference Range Interpretation Comments Potassium Level (test code = 2823-3) 4.3 3.5-5.1 [facility] McKinneyChloride Skrsc5305-83-54 07:22:00* Test Item Value Reference Range Interpretation Comments Chloride Level (test code = 2075-0) 100 98-107 [facility] McKinneyCarbon Dioxide Htgmw9083-53-51 07:22:00* Test Item Value Reference Range Interpretation Comments Carbon Dioxide Level (test code = 2028-9) 30 22-29 H [facility] McKinneyAnion Olr1683-11-05 07:22:00* Test Item Value Reference Range Interpretation Comments Anion Gap (test code = 91359-1) 13.3 8-16 [facility] McKinneyBlood Urea Ihrrxhrc0376-19-62 07:22:00* Test Item Value Reference Range Interpretation Comments Blood Urea Nitrogen (test code = 3094-0) 39 7-26 H [facility] McKinneyCreatinine2018-03-02 07:22:00* Test Item Value Reference Range Interpretation Comments Creatinine (test code = 2160-0) 1.12 0.57-1.11 H [facility] McKinneyBUN/Creatinine Btncs1674-91-70 07:22:00* Test Item Value Reference Range Interpretation Comments BUN/Creatinine Ratio (test code = 3097-3) 35 6-25 H [facility] McKinneyEstimat Glomerular Filtration Rate 2017-10-16 07:22:00* Test Item Value Reference Range Interpretation Comments Estimat Glomerular Filtration Rate (test code = 37675-4) 49 >60 L Ranges were taken from the National Kidney Disease Education Program and the [facility] Foundation literature.Reference ranges:60 or greater: Qpygjf26-03 ( for 3 consecutive months): Chronic kidney disease 15 or less: Kidney failureBaylor Scott & White Medical Center – McKinneyGlucose Eugmw4128-25-76 07:22:00* Test Item Value Reference Range Interpretation Comments Glucose Level (test code = GIK1352) 122 74-118 H [facility] McKinneyCalcium Yqtov1479-07-11 07:22:00* Test Item Value Reference Range Interpretation Comments Calcium Level (test code = 28817-6) 9.0 8.4-10.2 [facility] McKinneyWhite Blood Rmung5975-15-21 07:10:00* Test Item Value Reference Range Interpretation Comments White Blood Count (test code = 6690-2) 7.26 4.8-10.8 [facility] McKinneyRed Blood Ncrmq0365-45-48 07:10:00* Test Item Value Reference Range Interpretation Comments Red Blood Count (test code = 789-8) 3.65 3.6-5.1 [facility] McKinneyHemoglobin2018-03-02 07:10:00* Test Item Value Reference Range Interpretation Comments Hemoglobin (test code = 94018-9) 11.3 12.0-16.0 L [facility] McKinneyHematocrit2018-03-02 07:10:00* Test Item Value Reference Range Interpretation Comments Hematocrit (test code = 4544-3) 35.6 34.2-44.1 [facility] McKinneyMean Corpuscular Xoxyro9627-75-67 07:10:00* Test Item Value Reference Range Interpretation Comments Mean Corpuscular Volume (test code = 787-2) 97.5 81-99 [facility] McKinneyMean Corpuscular Kgtcmkckpu5691-01-13 07:10:00* Test Item Value Reference Range Interpretation Comments Mean Corpuscular Hemoglobin (test code = 785-6) 31.0 28-32 [facility] McKinneyMean Corpuscular Hemoglobin Concent 2017-10-16 07:10:00* Test Item Value Reference Range Interpretation Comments Mean Corpuscular Hemoglobin Concent (test code = 786-4) 31.7 31-35 [facility] McKinneyRed Cell Distribution Xcoce0710-05-43 07:10:00* Test Item Value Reference Range Interpretation Comments Red Cell Distribution Width (test code = 66794-0) 15.2 11.7 -14.4 H [facility] McKinneyPlatelet Qjllw8129-41-88 07:10:00* Test Item Value Reference Range Interpretation Comments Platelet Count (test code = 777-3) 212 140-360 [facility] McKinneyNeutrophils (%) (Auto)2017-10-16 07:10:00 * Test Item Value Reference Range Interpretation Comments Neutrophils (%) (Auto) (test code = 07416-0) 71.3 38.7-80.0 [facility] McKinneyLymphocytes (%) (Auto)2017-10-16 07:10:00 * Test Item Value Reference Range Interpretation Comments Lymphocytes (%) (Auto) (test code = 736-9) 15.2 18.0-39.1 L [facility] McKinneyMonocytes (%) (Auto)2017-10-16 07:10:00* Test Item Value Reference Range Interpretation Comments Monocytes (%) (Auto) (test code = 5905-5) 9.6 4.4-11.3 [facility] McKinneyEosinophils (%) (Auto)2017-10-16 07:10:00 * Test Item Value Reference Range Interpretation Comments Eosinophils (%) (Auto) (test code = 713-8) 2.9 0.0-6.0 [facility] McKinneyBasophils (%) (Auto)2017-10-16 07:10:00* Test Item Value Reference Range Interpretation Comments Basophils (%) (Auto) (test code = 706-2) 0.6 0.0-1.0 [facility] McKinneyIM GRANULOCYTES %2017-10-16 07:10:00* Test Item Value Reference Range Interpretation Comments IM GRANULOCYTES % (test code = IM GRANULOCYTES %) 0.4 0.0- 1.0 [facility] McKinneyNeutrophils # (Auto)2017-10-16 07:10:00* Test Item Value Reference Range Interpretation Comments Neutrophils # (Auto) (test code = 751-8) 5.2 2.1-6.9 [facility] McKinneyLymphocytes # (Auto)2017-10-16 07:10:00* Test Item Value Reference Range Interpretation Comments Lymphocytes # (Auto) (test code = 38461-7) 1.1 1.0-3.2 [facility] McKinneyMonocytes # (Auto)2017-10-16 07:10:00* Test Item Value Reference Range Interpretation Comments Monocytes # (Auto) (test code = 742-7) 0.7 0.2-0.8 [facility] McKinneyEosinophils # (Auto)2017-10-16 07:10:00* Test Item Value Reference Range Interpretation Comments Eosinophils # (Auto) (test code = 711-2) 0.2 0.0-0.4 [facility] McKinneyBasophils # (Auto)2017-10-16 07:10:00* Test Item Value Reference Range Interpretation Comments Basophils # (Auto) (test code = 704-7) 0.0 0.0-0.1 [facility] McKinneyAbsolute Immature Granulocyte (auto 2017-10-16 07:10:00* Test Item Value Reference Range Interpretation Comments Absolute Immature Granulocyte (auto (tk t code = Absolute Immature Granulocyte (auto) 0.03 0-0.1 [facility] McKinneyVitamin B12 Cglzs6347-21-91 08:57:00* Test Item Value Reference Range Interpretation Comments Vitamin B12 Level (test code = 68105-8) 422 213-816 [facility] McKinneyVitamin B12 Zfxsa4322-18-19 08:57:00* Test Item Value Reference Range Interpretation Comments Vitamin B12 Level (test code = 52195-4) 422 213-816 [facility] McKinneyVitamin B12 Ehukb7223-03-60 08:57:00* Test Item Value Reference Range Interpretation Comments Vitamin B12 Level (test code = 91204-1) 422 213-816 [facility] McKinneyVitamin B12 Fmvbl5543-63-11 08:57:00* Test Item Value Reference Range Interpretation Comments Vitamin B12 Level (test code = 57612-9) 422 213-816 [facility] McKinneyCreatine Kinase WC5096-29-46 08:56:00* Test Item Value Reference Range Interpretation Comments Creatine Kinase MB (test code = 40559-5) 1.00 0-5.0 [facility] McKinneyTroponin I7822-85-17 08:56:00* Test Item Value Reference Range Interpretation Comments Troponin I (test code = NVM1434) -0.001 0-0.300 [facility] McKinneyCreatine Ydlahf3187-72-63 08:46:00* Test Item Value Reference Range Interpretation Comments Creatine Kinase (test code = 2157-6) 161 29-168 [facility] McKinneyErythrocyte Sedimentation Crhz3914-11-17 08:39:00* Test Item Value Reference Range Interpretation Comments Erythrocyte Sedimentation Rate (test code = 4537-7) 58 0- 20 H [facility] McKinneyTriglycerides Bhxuy6460-85-67 06:47:00* Test Item Value Reference Range Interpretation Comments Triglycerides Level (test code = 2571-8) 143 0-149 [facility] McKinneyCholesterol Idocd3666-33-89 06:47:00* Test Item Value Reference Range Interpretation Comments Cholesterol Level (test code = 2093-3) 219 0-199 H Less than 200 mg/dL Low Jqjs999 - 239 mg/dL Borderline Idpg747 m g/dl and greater High Risk [facility] McKinneyLDL Wcufuacjwrs5965-74-25 06:47:00* Test Item Value Reference Range Interpretation Comments LDL Cholesterol (test code = 2089-1) 142 60-130 H [facility] McKinneyHDL Hfdrtaactbn8297-68-76 06:47:00* Test Item Value Reference Range Interpretation Comments HDL Cholesterol (test code = 2085-9) 48 40-60 [facility] McKinneyCholesterol/HDL Zptwz6083-13-17 06:47:00 * Test Item Value Reference Range Interpretation Comments Cholesterol/HDL Ratio (test code = 9830-1) 4.6 3.0-3.6 H [facility] McKinneyTriglycerides Yrmpb1898-23-61 06:47:00* Test Item Value Reference Range Interpretation Comments Triglycerides Level (test code = 2571-8) 143 0-149 [facility] McKinneyCholesterol Elhuz5808-82-40 06:47:00* Test Item Value Reference Range Interpretation Comments Cholesterol Level (test code = 2093-3) 219 0-199 H Less than 200 mg/dL Low Gkdl213 - 239 mg/dL Borderline Pamj028 m g/dl and greater High Risk [facility] McKinneyLDL Ufgxfhwqfna7991-85-97 06:47:00* Test Item Value Reference Range Interpretation Comments LDL Cholesterol (test code = 2089-1) 142 60-130 H [facility] McKinneyHDL Btvfnkkykts4805-44-05 06:47:00* Test Item Value Reference Range Interpretation Comments HDL Cholesterol (test code = 2085-9) 48 40-60 [facility] McKinneyCholesterol/HDL Sytys3883-84-81 06:47:00 * Test Item Value Reference Range Interpretation Comments Cholesterol/HDL Ratio (test code = 9830-1) 4.6 3.0-3.6 H [facility] McKinneyGroup A Streptococcus Fdlyuz0560-49-60 19:49:00* Test Item Value Reference Range Interpretation Comments Group A Streptococcus Screen (test code = 23803-5) NEGATIVE NEG ATIVE [facility] McKinneyGroup A Streptococcus Ufozed0263-57-92 19:49:00* Test Item Value Reference Range Interpretation Comments Group A Streptococcus Screen (test code = 69116-0) NEGATIVE NEG ATIVE [facility] McKinneyGroup A Streptococcus Bzfdlz4944-92-18 19:49:00* Test Item Value Reference Range Interpretation Comments Group A Streptococcus Screen (test code = 38992-0) NEGATIVE NEG ATIVE [facility] A Streptococcus Kxqope4449-14-56 19:49:00* Test Item Value Reference Range Interpretation Comments Group A Streptococcus Screen (test code = 33386-4) NEGATIVE NEG ATIVE [facility] McKinneyUrine OIJ2611-44-53 19:46:00* Test Item Value Reference Range Interpretation Comments Urine WBC (test code = 5821-4) 0-5 0-5 [facility] McKinneyUrine HTI8989-94-27 19:46:00* Test Item Value Reference Range Interpretation Comments Urine RBC (test code = 55992-5) NONE 0-5 [facility] McKinneyUrine Njjlbxvt2997-97-49 19:46:00* Test Item Value Reference Range Interpretation Comments Urine Bacteria (test code = 10447-2) NONE NONE [facility] McKinneyUrine Epithelial Vpnma5827-19-15 19:46:00 * Test Item Value Reference Range Interpretation Comments Urine Epithelial Cells (test code = 46750-6) FEW NONE [facility] McKinneyUrine LXG5474-56-11 19:46:00* Test Item Value Reference Range Interpretation Comments Urine WBC (test code = 5821-4) 0-5 0-5 [facility] McKinneyUrine QYV1268-98-01 19:46:00* Test Item Value Reference Range Interpretation Comments Urine RBC (test code = 57485-4) NONE 0-5 [facility] McKinneyUrine Ppotcrtl5728-77-34 19:46:00* Test Item Value Reference Range Interpretation Comments Urine Bacteria (test code = 22119-4) NONE NONE [facility] McKinneyUrine Epithelial Ufoam7053-53-55 19:46:00 * Test Item Value Reference Range Interpretation Comments Urine Epithelial Cells (test code = 62578-1) FEW NONE [facility] McKinneyUrine AYR0044-62-93 19:46:00* Test Item Value Reference Range Interpretation Comments Urine WBC (test code = 5821-4) 0-5 0-5 [facility] McKinneyUrine WCT8540-16-74 19:46:00* Test Item Value Reference Range Interpretation Comments Urine RBC (test code = 54165-1) NONE 0-5 [facility] McKinneyUrine Vljdgjxu6906-08-79 19:46:00* Test Item Value Reference Range Interpretation Comments Urine Bacteria (test code = 98777-2) NONE NONE [facility] McKinneyUrine Epithelial Lkmss1852-37-33 19:46:00 * Test Item Value Reference Range Interpretation Comments Urine Epithelial Cells (test code = 87765-8) FEW NONE [facility] McKinneyUrine Mkpdz1413-34-59 19:28:00* Test Item Value Reference Range Interpretation Comments Urine Color (test code = 5778-6) YELLOW YELLOW [facility] McKinneyUrine Ajaiqqa3198-26-56 19:28:00* Test Item Value Reference Range Interpretation Comments Urine Clarity (test code = 94592-7) CLEAR CLEAR [facility] McKinneyUrine Specific Hryfesn0670-07-98 19:28:00 * Test Item Value Reference Range Interpretation Comments Urine Specific [place] (test code = 5811-5) 1.010 1.010-1.02 5 [facility] McKinneyUrine oA2034-95-83 19:28:00* Test Item Value Reference Range Interpretation Comments Urine pH (test code = 71012-9) 6.5 5-7 [facility] Leukocyte Menqqqku3701-97-64 19:28:00* Test Item Value Reference Range Interpretation Comments Urine Leukocyte Esterase (test code = 5799-2) NEGATIVE NEGATIVE [facility] Lygtcdt7235-79-11 19:28:00* Test Item Value Reference Range Interpretation Comments Urine Nitrite (test code = 75435-8) NEGATIVE NEGATIVE [facility] Prplxmq9787-61-82 19:28:00* Test Item Value Reference Range Interpretation Comments Urine Protein (test code = 5804-0) NEGATIVE NEGATIVE [facility] Glucose (UA)2017-10-14 19:28:00* Test Item Value Reference Range Interpretation Comments Urine Glucose (UA) (test code = 2349-9) NEGATIVE NEGATIVE [facility] Rrnovwe3053-99-60 19:28:00* Test Item Value Reference Range Interpretation Comments Urine Ketones (test code = 38883-3) NEGATIVE NEGATIVE [facility] Wfyhdrqefsii7718-69-57 19:28:00* Test Item Value Reference Range Interpretation Comments Urine Urobilinogen (test code = 49749-0) 0.2 0.2-1 [facility]neyUrine Ewjyymzzx0378-48-04 19:28:00* Test Item Value Reference Range Interpretation Comments Urine Bilirubin (test code = 1978-6) NEGATIVE NEGATIVE [facility] Zgkau3030-93-95 19:28:00* Test Item Value Reference Range Interpretation Comments Urine Blood (test code = 61953-7) NEGATIVE NEGATIVE [facility]neyUrine Ppdmx9044-05-33 19:28:00* Test Item Value Reference Range Interpretation Comments Urine Color (test code = 5778-6) YELLOW YELLOW [facility] McKinneyUrine Eatdrld9586-73-85 19:28:00* Test Item Value Reference Range Interpretation Comments Urine Clarity (test code = 64596-2) CLEAR CLEAR [facility] McKinneyUrine Specific Cdqzddt1138-09-67 19:28:00 * Test Item Value Reference Range Interpretation Comments Urine Specific [place] (test code = 5811-5) 1.010 1.010-1.02 5 [facility]neyUrine wK6255-67-39 19:28:00* Test Item Value Reference Range Interpretation Comments Urine pH (test code = 11341-2) 6.5 5-7 [facility]neyUrine Leukocyte Mbjuaiya0649-04-08 19:28:00* Test Item Value Reference Range Interpretation Comments Urine Leukocyte Esterase (test code = 5799-2) NEGATIVE NEGATIVE [facility] Giyosuq6795-57-90 19:28:00* Test Item Value Reference Range Interpretation Comments Urine Nitrite (test code = 61842-5) NEGATIVE NEGATIVE [facility] Fytabuu6612-08-19 19:28:00* Test Item Value Reference Range Interpretation Comments Urine Protein (test code = 5804-0) NEGATIVE NEGATIVE [facility] Glucose (UA)2017-10-14 19:28:00* Test Item Value Reference Range Interpretation Comments Urine Glucose (UA) (test code = 2349-9) NEGATIVE NEGATIVE [facility]neyUrine Rfyxhza6499-94-67 19:28:00* Test Item Value Reference Range Interpretation Comments Urine Ketones (test code = 77381-1) NEGATIVE NEGATIVE [facility]neyUrine Pnfiacxfahxi0756-08-79 19:28:00* Test Item Value Reference Range Interpretation Comments Urine Urobilinogen (test code = 87909-0) 0.2 0.2-1 [facility]neyUrine Ureyizafu5141-23-93 19:28:00* Test Item Value Reference Range Interpretation Comments Urine Bilirubin (test code = 1978-6) NEGATIVE NEGATIVE [facility]neyUrine Llwsb6661-17-91 19:28:00* Test Item Value Reference Range Interpretation Comments Urine Blood (test code = 50446-5) NEGATIVE NEGATIVE [facility] McKinneyUrine Zqacb9816-55-50 19:28:00* Test Item Value Reference Range Interpretation Comments Urine Color (test code = 5778-6) YELLOW YELLOW [facility] McKinneyUrine Gaqwgxh4209-78-55 19:28:00* Test Item Value Reference Range Interpretation Comments Urine Clarity (test code = 14101-8) CLEAR CLEAR [facility] McKinneyUrine Specific Hwpaonx5737-08-71 19:28:00 * Test Item Value Reference Range Interpretation Comments Urine Specific [place] (test code = 5811-5) 1.010 1.010-1.02 5 [facility] McKinneyUrine iA8289-58-23 19:28:00* Test Item Value Reference Range Interpretation Comments Urine pH (test code = 31547-1) 6.5 5-7 [facility]neyUrine Leukocyte Innvpzui8011-75-76 19:28:00* Test Item Value Reference Range Interpretation Comments Urine Leukocyte Esterase (test code = 5799-2) NEGATIVE NEGATIVE [facility]neyUrine Jhtaldt5390-81-37 19:28:00* Test Item Value Reference Range Interpretation Comments Urine Nitrite (test code = 60302-1) NEGATIVE NEGATIVE [facility] McKinneyUrine Iwtqimo0940-97-57 19:28:00* Test Item Value Reference Range Interpretation Comments Urine Protein (test code = 5804-0) NEGATIVE NEGATIVE [facility] McKinneyUrine Glucose (UA)2017-10-14 19:28:00* Test Item Value Reference Range Interpretation Comments Urine Glucose (UA) (test code = 2349-9) NEGATIVE NEGATIVE [facility] McKinneyUrine Yhofiia5873-50-77 19:28:00* Test Item Value Reference Range Interpretation Comments Urine Ketones (test code = 16210-9) NEGATIVE NEGATIVE [facility] McKinneyUrine Bpyrzggohmnn6051-34-82 19:28:00* Test Item Value Reference Range Interpretation Comments Urine Urobilinogen (test code = 14614-2) 0.2 0.2-1 [facility]neyUrine Eivvroxsa0887-10-76 19:28:00* Test Item Value Reference Range Interpretation Comments Urine Bilirubin (test code = 1978-6) NEGATIVE NEGATIVE [facility]neyU[facility] Iznrp7664-42-98 19:28:00* Test Item Value Reference Range Interpretation Comments Urine Blood (test code = 12337-7) NEGATIVE NEGATIVE [facility] McKinneyThyroid Stimulating Hormone (TSH) 2017-10-14 18:06:00* Test Item Value Reference Range Interpretation Comments Thyroid Stimulating Hormone (TSH) (test code = 74116-5) 0.151 0.350-4.940 L [facility] McKinneyThyroid Stimulating Hormone (TSH) 2017-10-14 18:06:00* Test Item Value Reference Range Interpretation Comments Thyroid Stimulating Hormone (TSH) (test code = 32239-6) 0.151 0.350-4.940 L [facility] McKinneyThyroid Stimulating Hormone (TSH) 2017-10-14 18:06:00* Test Item Value Reference Range Interpretation Comments Thyroid Stimulating Hormone (TSH) (test code = 71994-8) 0.151 0.350-4.940 L [facility] McKinneyThyroid Stimulating Hormone (TSH) 2017-10-14 18:06:00* Test Item Value Reference Range Interpretation Comments Thyroid Stimulating Hormone (TSH) (test code = 43915-4) 0.151 0.350-4.940 L [facility] McKinneyB-Type Natriuretic Fgvmeyx1400-16-50 17:55:00* Test Item Value Reference Range Interpretation Comments B-Type Natriuretic Peptide (test code = 52456-6) 29.8 0-100 [facility] McKinneyB-Type Natriuretic Vxvlhiy1488-32-01 17:55:00* Test Item Value Reference Range Interpretation Comments B-Type Natriuretic Peptide (test code = 98983-9) 29.8 0-100 [facility] McKinneyMagnesium Moxrs9715-30-04 17:49:00* Test Item Value Reference Range Interpretation Comments Magnesium Level (test code = 41818-6) 2.2 1.3-2.1 H [facility] McKinneyTotal Atupwubgm7932-93-99 17:49:00* Test Item Value Reference Range Interpretation Comments Total Bilirubin (test code = 1975-2) 1.0 0.2-1.2 [facility] McKinneyAspartate Amino Transf (AST/SGOT) 2017-10-14 17:49:00* Test Item Value Reference Range Interpretation Comments Aspartate Amino Transf (AST/SGOT) (test code = Aspartate Amino Transf (AST/SGOT)) 19 5-34 [facility] McKinneyAlanine Aminotransferase (ALT/SGPT) 2017-10-14 17:49:00* Test Item Value Reference Range Interpretation Comments Alanine Aminotransferase (ALT/SGPT) (test code = 1742-6) 13 0-55 [facility] McKinneyTotal Zbynzjx1138-05-63 17:49:00* Test Item Value Reference Range Interpretation Comments Total Protein (test code = 2885-2) 7.7 6.5-8.1 [facility] McKinneyAlbumin2018-02-28 17:49:00* Test Item Value Reference Range Interpretation Comments Albumin (test code = 1751-7) 3.9 3.5-5.0 [facility] McKinneyGlobulin2018-02-28 17:49:00* Test Item Value Reference Range Interpretation Comments Globulin (test code = 71009-0) 3.8 2.3-3.5 H [facility] [place]Albumin/Globulin Cbuyc2965-25-92 17:49:00 * Test Item Value Reference Range Interpretation Comments Albumin/Globulin Ratio (test code = 1759-0) 1.0 0.8-2.0 [facility] McKinneyAlkaline Uaiswpoxqnn4377-70-33 17:49:00* Test Item Value Reference Range Interpretation Comments Alkaline Phosphatase (test code = 6768-6) 90 40-150 [facility] McKinneyInfluenza Virus Types A,B Antigen 2017-10-14 17:42:00* Test Item Value Reference Range Interpretation Comments Influenza Virus Types A,B Antigen (test code = 00877-9) NEGATIVE NEGATIVE [facility] McKinneyLactic Acid Qxxdj2692-45-99 17:42:00* Test Item Value Reference Range Interpretation Comments Lactic Acid Level (test code = Lactic Acid Level) 5.1 4.5- 19.8 [facility] McKinneyInfluenza Virus Types A,B Antigen 2017-10-14 17:42:00* Test Item Value Reference Range Interpretation Comments Influenza Virus Types A,B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 administration of 10 mCi of Tc-99m MAG3, susy della images of the kidneys in the posterior projection were obtained through 40 minutes. Lasix 40 mg was administered intravenously at 10 minutes post injec tion of the tracer. Report: Left kidney: Perfusion of the left kidney is prompt. The kidney has a reniform shape but is decreased in size.. Extrac tion of tracer from the blood pool is [...] is seen within the left ureter. Right kidney: Perfusion to the right kidney is prompt. The right kidney has a distorted reniform shape and is decreased in size comparable to the left kidney. Extraction of tracer by the renal parenchyma is decreased. Clearance of tracer from the renal parenchy ma begins promptly but is not complete by the end of the study. The pelvicaly ceal system is mildly dilated. Increased pooling of tracer within the pelvica lyceal system is seen. No net drainage of tracer from the pelvicalyceal syste m is seen prior to administration of Lasix. Washout of tracer from the pelvic alyceal system following administration of Lasix is prolonged with a T-1/2 of 25-30 minutes (normal less than 15 minutes). No significant stasis of tracer i s seen within the right ureter. Differential renal function: The left kidne y contributes 48% of total renal function and the right kidney contributes 52% (normal 43-57%). Impression: 1. Scan evidence of medical renal disea se. No hydronephrosis is present. No physiologically significant obstructio n of the renal collecting system is present. The appearance and function of t he kidney are unchanged compared to the prior study of 06/17/2017. 2. Scan evidence of medical renal disease. Mild hydronephrosis is present. Prolonged Lasix washout of the pelvicalyceal system suggests that physiologically signi ficant obstruction of the renal collecting system at the UPJ may be present. The appearance and delayed washout of the renal collecting system are unchange d compared to the prior study of 06/17/2017. No stasis of tracer is seen in th e right ureter suggest obstruction distal to the UPJ. 3. The differential r enal function is preserved. Signed by: Dr. Yuko Gallardo M.D. on 09/17/2017 8: 15 PM Dictated By: YUKO GALLARDO MD 14 Transcribed By: MARY on 09/17/172014 COPY TO: DHARA LANGE MD CHEST 2 VIEWS [place] [address] Patient Name: RODGER NICHOLS MR #: [id number] : 1950 Age/Sex: 67/F Req #: [id number] Adm Physician: Ordered by: DHARA CHAVIRA MD Report #: [id number] Location: OR Room/Bed: Procedure: [id number] DX/CHEST 2 VIEWS Exam Date: 08/24/17 Exam [...] There is no evidence of pneumonia or pulmo nary edema. Pleura: There is no pleural effusion or pneumothorax. H eart and mediastinum: The heart and the mediastinum are normal. Surgical cli ps overlying midline neck base. Bones: No acute bony abnormality. Degener ative changes of the thoracic spine. IMPRESSION: 1. No acute ca rdiopulmonary disease. Dictated by: Elgin Stanford M.D. on 08/24/2017 at 1 5:49 Electronically approved by: Elgin Stanford M.D. on 08/24/2017 at 15: 49 Dictated By: ELGIN STANFORD MD 48 Transcribed By: KALEB on 08/24/171548 CO PY TO: DHARA CHAVIRA MD RENAL SCAN W/LASIX [place] [address] Patient Name: RODGER NICHOLS MR #: [id number] : 1950 Age/Sex: 67/F Req #: [id number] Adm Physician: Ordered by: DHARA CHAVIRA MD Report #: [id number] Location: OR Room/Bed: Procedure: [id number] NM/RENAL SCAN W/LASIX Exam Da te: 06/17/17 Exam Time: 1400 REPORT STATUS: Sig renetta Renal Scan with Lasix Washout Clinical information: UPJ obstruction Technique: Following intravenous administration of 10 mCi of Tc-99m MAG3, dynamic images of the kidneys in the posterior projection were obtained through 40 minutes. Lasix 40 mg was administered intravenously at 10 minutes post injection of the tracer. Report: Left kidney: Perfusion of the left ki dney is prompt. The kidney has a reniform shape but is decreased in size.. E xtraction of tracer from the blood pool is decreased. Clearance of tracer fro m the renal parenchyma begins promptly but is not complete by the end of the s tudy. The pelvicalyceal system is not dilated. Physiologic pooling of tracer within the pelvicalyceal system is seen. Drainage of tracer from the pelvica lyceal system is adequate prior to administration of Lasix. No significant s tasis of tracer is seen within the left ureter. Right kidney: Perfusion t o the right kidney is prompt. The right kidney has a reniform shape but is de creased in size comparable to the left kidney. Extraction of tracer by the r enal parenchyma is decreased. Clearance of tracer from the renal parenchyma be gins promptly but is not complete by the end of the study. The pelvicalyceal system is mildly dilated. Increased pooling of tracer within the pelvicalycea l system is seen. No net drainage of tracer from the pelvicalyceal system is seen prior to administration of Lasix. Washout of tracer from the pelvicalyce al system following administration of Lasix is prolonged with a T-1/2 of 26 mi nutes (normal less than 15 minutes). No significant stasis of tracer is seen w ithin the right ureter. Differential renal function: The left kidney contri butes 49% of total renal function and the right kidney contributes 51% (normal 43-57%). Impression: 1. Scan evidence of medical renal disease. No hydronephrosis is present. No physiologically significant obstruction of the renal collecting system is present. 2. Scan evidence of medical renal di sease. Mild hydronephrosis is present. Prolonged Lasix washout of the pelvica lyceal system suggests that physiologically significant obstruction of the alicia al collecting system at the UPJ may be present. 3. The differential cici l function is preserved. Signed by: Dr. Yuko Gallardo M.D. on 06/18/2017 4:22 PM Dictated By: YUKO GALLARDO MD 21 Transcribed By: MARY on 06/18/17 162 COPY TO: DHARA GARBER MD
--- OUTSIDE RECORDS SUMMARY | 2020-03-16 13:35 | XMS REPORT | Clinical Summary ---
Author Author [facility] Address Unknown Phone Unavailable Care Team Providers Care Bonded Structures Repairer Name Role Phone Praveen Foss MD PCP [...] 0 tablet mouth every morning. Active thyroid,pork (DESILVERIZER THYROID Take by mouth 0 ORAL) every [...] L ot Implanted Type Area Manufactur er [id number] / / Clip Ligtng Hem-O-Carmen Endoscpc Aplr Surgical N/A: N/A ERIK Plymr Lg - [id number] Implants; CLOSURE Implanted: Qty: 1 on 12/08/2018 by Expand[employer]; Ольга Carranza MD at [facility] Extenders; Surgical Wires [id number] / / Clip Ligtng Hem-O-Carmen Endoscpc Aplr Surgical N/A: N/A WECK Plymr Lg - [id number] Implants; CLOSURE Implanted: Qty: 1 on 12/08/2018 by [employer]; Ольга Carranza MD at [facility] Extenders; Surgical Wires 07/12/2021 192 132 / / [id number] Stent Uretl Polrs Ult 2drmtr 6fr Urological N/A: N/A BSC 24cm Hydroplus W/O Gw - [id number] Implants URO LOGY Implanted: Qty: 1 on 10/27/2018 by or Ольга Burgos MD at [facility] 09/12/2021 192 133 / / [id number] Stent Uretl Polrs Ult 2drmtr 6fr Urological Right: N/A BSC 26cm Hydroplus W/O Gw - [id number] Implants URO LOGY Implanted: Qty: 1 on 12/08/2018 by or Ольга Burgos MD at [facility] Results Not on fileafter 03/04/2019 Insurance Type Payer Benefit Subscriber ID Effective Phone Address Plan / Dates Group [facility] MEDICARE AARP xxxxxxxxx [id number] MEDICARE resent COMPLETE [facility] Advance Directives For more information, please contact: [phone] Patient Manager Research Explanation Type Date Recorded Advance Directives, 01/25/2018 7:34 AM Living Will and Medical Power of Radio Electronics Technician Advance Directives, 02/19/2018 10:37 AM Living Will and Medical Power of Radio Electronics Technician POA 12/11/17 Advance Directives, 12/20/2018 11:54 AM Living Will and Medical Power of Radio Electronics Technician
--- OUTSIDE RECORDS SUMMARY | 2020-03-16 13:35 | XMS REPORT | Clinical Summary ---
Author Author [facility] Address Unknown Phone Unavailable Care Team Providers Care Architecture Instructor Name Role Phone Nasrin Wallace PCP Unavailable [...] Chronic pain disorder 08/05/2013 Overview: ICD9 DX Organizational Effectiveness Consultant Crohn disease 06/09/2013 Acute diarrhea 06/08/2013 Hypertension [...] ot Implanted Type Area Manufactur er 06/05/2015 [id number] / [id number] / [id number] Generator,Pulse Neurostimulator Pain N/A: Back [place] Implantable Precision Spectra - Mgmt/Stimu [facility] [id number] lator Implanted: Qty: 1 on 08/05/2013 by Pipo Muse MD 09/05/2014 MD-8216-70 / [id number] / [id number] Lead,Paddle Artisan Precision Pain N/A: Back [place] Platnalock 70cm - [id number] Mgmt/Stimu SCIENTIFIC Implanted: Qty: 1 on 08/05/2013 by Pipo Cartagena MD [id number] / / Kit,Charging Precision 2.0 - Pain [place] [id number] Mgmt/Stimu SCIENTIFIC Implanted: Qty: 1 on 08/05/2013 britton 05/16/2015 [id number] / / [id number] Stent,Uret F/G Contour Injection Uro Stent Right: Ureter [place] 6.0/24 - [id number] SCIENTIFIC Implanted: Qty: 1 on 10/10/2013 by Mark Velasquez MD 10/06/2015 / 1961 / N/A: Back Implanted: Qty: 1 on 08/05/2013 Results Not on fileafter 03/04/2019 Insurance Payer Benefit Subscriber ID Type Phone Address Plan / Group MEDICAID - MEDICAID [facility] xxxxxxxxx Medica id CARE COMM STAR Contracted PLAN Advance Directives For more information, please contact: [address] [address] Date Inactivated Comments Code Status [...]
--- OUTSIDE RECORDS SUMMARY | 2020-03-16 13:35 | XMS REPORT | Clinical Summary ---
Author Author [facility] Organization [facility] Address Unknown Phone Unavailable Care Team Providers Care Risk Management Director Name Role Phone Zarina Berman MD 5 [...] twice a day. Coronary artery disease involving navajo coronary artery of navajo heart without angina pectoris Active gabapentin (NEURONTIN) [...] mouth 6 Coronary artery disease daily. involving navajo coronary artery of navajo heart without angina pectoris Active clotrimazole (LOTRIMIN) [...] Effective Phone Address Plan / Dates Group [employer] xxxxxxxxxx 2015-P [phone] [place] [employer] resent [address] [place] [address] Advance Directives Patient Control Officer Manager Explanation Type Date Recorded Advance Directives 03/10/2014 [...]
--- OUTSIDE RECORDS SUMMARY | 2020-03-16 13:36 | XMS REPORT | Continuity of Care Document ---
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 [place] xxxxxxxxx 2018 00:00:00 Chase Arcos Problems [...] multiple levels Disease Active 2015-08-02 00:00:00 [facility] Chronic radicular pain of lower back Chronic radicular pain of lower back Disease Active 2015-08-02 00:00:00 [facility] Epiretinal membrane Epiretinal membrane Disease Active 2015-06-22 00:00 :00 [facility] Combined form of age-related cataract, both eyes Combi renetta form of age-related cataract, both eyes Disease Active 2015-06-22 00:00:00 [facility] No diabetic retinopathy in both eyes No diabetic retinopathy in both eyes Disease Active 2015-06-22 00:00:00 [facility] 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 Dis ease Active 2015-06-22 00:00:00 [facility] ealth Floaters Floaters Disease Active 2015-06-22 00:00:00 [facility] chronic Macrocytic anemia chronic Macrocytic anemia Disease Ac tive 2015-04-17 00:00:00 [facility] CKD (chronic kidney disease) stage 3, GFR 30-59 ml/min CKD (chronic kidney disease) stage 3, GFR 30-59 ml/min Disease Active 2015-04-17 00:00:00 [facility] Aspirin allergy Aspirin allergy Disease Active 2015-04-17 00:00:00 [facility] Admitted to IMU for ASA desensitization Admitted to IM U for ASA desensitization Disease Active 2015-04-16 00:00:00 [facility] Stridor Stridor Disease Active 2015-04-12 00:00:00 [facility] Shortness of breath Shortness of breath Disease Active 2015-04-12 00:00 :00 [facility] 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 Disease Active 2015-02-22 00:00:00 [facility] Diabetic neuropathy Diabetic neuropathy Disease Active 2014-12-29 00:00 :00 [facility] Crohn disease Crohn disease Disease Active 2014-10-11 00:00:00 [facility] Diabetes mellitus type 2 without retinopathy Diabetes mellitus type 2 without retinopathy Disease Active 2014-10-09 00:00:00 [facility] NS (nuclear sclerosis) NS (nuclear sclerosis) Disease Active 2014-10-09 00:00:00 [facility] Myopia with astigmatism and presbyopia Myopia with astigmati sm and presbyopia Disease Active 2014-10-09 00:00:00 [facility] Renal mass, left Renal mass, left Disease Active 2014-09-03 00:00:00 [facility] Hydronephrosis, right Hydronephrosis, right Disease Active 201 12-15-17 00:00:00 [facility] Adjustment disorder with anxious mood Adjustment disorder wi th anxious mood Disease Active 2014-08-02 00:00:00 [facility] CAD S/P percutaneous coronary angioplasty CAD S/P perc utaneous coronary angioplasty Disease Active 2014-07-24 00:00:00 Overview: S/p PCI of ostial diagonal with Promus Premier 3mm x 12mm drug-eluting stent [facility] Allergic asthma with stated cause Allergic asthma with stated ca use Disease Active 2014-07-24 00:00:00 [facility] Multiple joint pain Multiple joint pain Disease Active 2014-03-28 00:00 :00 [facility] High triglycerides High triglycerides Disease Active 2014-03-09 00:00:0 0 [facility] DMII (diabetes mellitus, type 2) DMII (diabetes mellitus, type 2 ) Disease Active 2014-03-09 00:00:00 [facility] H/O right and left heart catheterization H/O right and left heart catheterization Disease Active 2014-03-09 00:00:00 [facility] Insomnia Insomnia Disease Active 2014-03-09 00:00:00 [facility] Fibromyalgia Fibromyalgia Disease Active 2014-03-09 00:00:00 [facility] Chronic colitis Chronic colitis Disease Active 2014-03-09 00:00:00 [facility] Chronic left hip pain Chronic left hip pain Disease Active 201 11-22-23 00:00:00 [facility] General weakness General weakness Disease Active 2013-12-27 00:00:00 [facility] Chest pain Chest pain Disease Active 2013-12-04 00:00:00 [facility] Chronic pain disorder Chronic pain disorder Disease Active 201 10-27-19 00:00:00 Overview: ICD9 DX [facility] Crohn disease Crohn disease Disease Active 2013-06-09 00:00:00 [facility] Acute diarrhea Acute diarrhea Disease Active 2013-06-08 00:00:00 [facility] Diabetes Diabetes Disease Active 2013-06-08 00:00:00 [facility] Small bowel obstruction Small bowel obstruction Disease Active 2013-05-26 00:00:00 [facility] Abdominal pain Abdominal pain Disease Active 2013-05-25 00:00:00 [facility] Partial small bowel obstruction Partial small bowel obstruction Dis ease Active 2013-05-25 00:00:00 [facility] Renal mass Renal mass Disease Active 2013-05-25 00:00:00 [facility] Crohn's disease Crohn's disease Disease Active 2013-05-25 00:00:00 [facility] Constipation Constipation Disease Active 2011-10-12 00:00:00 [facility] Ventral hernia, unspecified, without mention of obstru ction or gangrene Ventral hernia, unspecified, without mention of obstruction or gangrene Disease Active 2011-10-12 00:00:00 [facility] ealt Aspiration pneumonia Aspiration pneumonia Problem Active [facility] [place] [place] Vomiting Problem Active [facility] [place] [place] Diarrhea Problem Active [facility] [place] [place] Dehydration Problem Active [facility] [place] [place] CHF (congestive heart failure) CHF (congestive heart failure) Disease Active [facility] HTN (hypertension) HTN (hypertension) Disease Active [facility] Hyperlipidemia Hyperlipidemia Disease Active [facility] Allergies, Adverse Reactions, Alerts Allergy Name Allergy Type Status Severity Reaction(s) Onset Date Inacti ve Date Treating Clinician Comments Source Acetaminophen Allergy to substance Active 2020-03-04 00:00: [address] [facility] [place] [place] Methocarbamol Allergy to substance Active 2020-03-04 00:00: [address] [facility] [place] [place] soap Allergy to substance Active 2020-03-04 00:00:[address] [facility] [place] [place] ADVAIR Allergy to substance Active 2020-03-04 00:00:[address] [facility] [place] [place] AMITRPTYLINE Allergy to substance Active 2020-03-04 00:00:[address] [facility] [place] [place] IV CONTRAST Allergy to substance Active 2020-03-04 00:00:[address] [facility] [place] [place] MYACINS Allergy to substance Active 2020-03-04 00:00:[address] [facility] [place] [place] NSAIDS Allergy to substance Active 2020-03-04 00:00:[address] [facility] [place] [place] PENICILLIN Allergy to substance Active 2020-03-04 00:00:[address] [facility] [place] [place] TETANUS Allergy to substance Active 2020-03-04 00:00:[address] [facility] [place] [place] Influenza Virus Vaccines Allergy to substance Active RASH 2019-10-23 00:00:00 [facility] Erythromycin base Allergy to substance Active ITCH 2019-10-23 00 :00:[address] [facility] [place] [place] Nsaids (Non-Steroidal Anti-Inflammatory Drug) Propensi ty to [...] to substance Active GASTRITIS, WHEEZING 2017-11-30 00:00:[address] [facility] [place] [place] Salmeterol Allergy to substance Active NEUROLOGICAL PROB 2017-11-30 00:00:00 [facility] Propantheline Allergy to substance Active 2017-11-30 00:00: [address] [facility] [place] [place] Fluticasone Allergy to substance Active NEUROLOGICAL PROB 2017-11-30 00:00:00 [facility] Iodinated Contrast Media Allergy to substance Active Moderate I TCHING 2017-11-30 00:00:[address] [facility] [place] [place] Lisinopril Allergy to substance Active TACHY 2017-11-11 00:00:[address] [facility] [place] [place] MYCINS Allergy to substance Active ITCH 2017-11-11 00:00:[address] [facility] [place] [place] Penicillin Allergy to substance Active ITCH 2017-11-11 00:00:[address] [facility] [place] [place] Hydrocodone Allergy to substance Active Moderate ITCHING 2017-08-25 00: 00:00 [facility] Oxycodone Allergy to substance Active Moderate VOMITING 2017-08-25 00:0 0:[address] [facility] [place] [place] Aspirin Allergy to substance Active Moderate GASTRIT IS, WHEEZING, DIAPHRAGMATIC SPASMS, THROAT CLOSES UP 2017-08-25 00:00:[address] [facility] [place] [place] Baclofen Allergy to substance Active Moderate MUSCLE TREMORS AND JERKING 2017-08-25 00:00:00 [facility] Gemfibrozil Allergy to substance Active Moderate MUSCLE PAIN 20 03-09-08 00:00:[address] [facility] [place] [place] Betamethasone Allergy to substance Active Moderate TACHYCARDIA AND HTN 2017-08-25 00:00:00 [facility] Metolazone Allergy to substance Active 2017-08-25 00:00:[address] [facility] [place] [place] Aspartame Allergy to substance Active Moderate HEADACHES AND V OMITING 2017-08-25 00:00:[address] [facility] [place] [place] Cephalexin Allergy to substance Active Moderate ITCHING AND VOM ITING 2017-08-25 00:00:[address] [facility] [place] [place] Tetracycline Allergy to substance Active Mild ITCHING 2017-08-25 00:00: [address] [facility] [place] [place] clavulanic acid Allergy to substance Active Moderate ITCHING 2017-08-25 00:00:[address] [facility] [place] [place] Povidone-iodine Allergy to substance Active Moderate RASH AND I TCHING 2017-08-25 00:00:[address] [facility] [place] [place] Simvastatin Allergy to substance Active Moderate MUSCLE WEAKNESS, PAIN, WHEEZING, ELEVATED BLOOD SUGARS 2017-08-25 00:00:[address] [facility] [place] [place] Amoxicillin Allergy to substance Active Moderate ITCHING 2017-08-25 00: 00:00 [facility] Tr[facility] Allergy to substance Active Moderate RASH, I TCHING, HEADACHES, IRREGULAR HEART BEAT 2017-08-25 00:00:[address] [facility] [place] [place] Amitriptyline Allergy to substance Active Moderate MUSCLE TREMO RS 2017-08-25 00:00:[address] [facility] [place] [place] Metoclopramide Allergy to substance Active Moderate MUSCLE TREM ORS 2017-08-25 00:00:[address] [facility] [place] [place] Atorvastatin Allergy to substance Active Moderate MUSCLE PAIN WEAKNESS AND DARK URINE 2017-08-25 00:00:[address] [facility] [place] [place] Ezetimibe Allergy to substance Active Moderate MUSCLE WEAKNESS , PAIN, WHEEZING 2017-08-25 00:00:00 [facility] Pregabalin Allergy to substance Active Moderate MUSCLE TREMORS AND JERKING 2017-08-25 00:00:00 [facility] Atorvastatin Propensity to adverse reactions to drug Active Breathing problems, Other 2014-07-06 00:00:00 Muscle pains [facility] Ezetimibe Propensity to adverse reactions to drug Active Breathing problems, Other 2014-07-06 00:00:00 Muscle pain [facility] ko Clindamycin Propensity to adverse reactions to drug Active 2014-04-20 00:00:00 Rash [facility] Gemfibrozil Propensity to adverse reactions to drug Active 2014-04-13 00:00:00 Low glucose, muscle aches [facility] Fluticasone Propion-Salmeterol Propensity to adverse reactions to d rug Active Other 2014-02-14 00:00:00 States caused neurolo gical problems [facility] Aspartame Propensity to adverse reactions to drug Active Nausea and Vomiting 2014-02-14 00:00:00 [facility] Aspirin Propensity to adverse reactions to drug Active Diarrhea 2014-02-14 00:00:00 [facility] Baclofen Propensity to adverse reactions to drug Active Other 2014-02-14 00:00:00 [facility] Betamethasone Acet,Sod Phos Propensity to adverse reactions to drug Active Other, Palpitations 2014-02-14 00:00:00 [facility] Amitriptyline Propensity to adverse reactions to drug Active Other 2014-02-14 00:00:00 [facility] Pregabalin Propensity to adverse reactions to drug Active Other 2014-02-14 00:00:00 [facility] Nsaids (Non-Steroidal Anti-Inflammatory Drug) Propensi ty to adverse reactions to drug Active Diarrhea 2014-02-14 00:00:00 [facility] Metoclopramide Hcl Propensity to adverse reactions to drug Active Other 2014-02-14 [facility] Propensity to adverse reactions to drug A ctive Itching 2014-02-14 00:00:00 [facility] ko Simvastatin Propensity to adverse reactions to drug Active Other 2014-02-14 00:00:00 [facility] Lisinopril Drug Allergy Active Palpitations 2013-10-05 00:00:00 Tachycardia [facility] Propantheline Drug Allergy Active 2013-10-05 00:00:00 unknown [facility] Carbamazepine Drug Allergy Active Other (See Comments) 00:00:00 unknown [facility] Propantheline Propensity to adverse reactions to drug Active 2013-10-05 00:00:00 unknown [facility] Fluticasone Propion-Salmeterol Drug Allergy Active 2012 00:00:00 Neurological problems [facility] Amitriptyline Drug Allergy Active 2013-05-24 00:00:00 Muscle tremors [facility] Aspartame Drug Allergy Active 2013-05-24 00:00:00 Headache [facility] Salicylates Drug Allergy Active 2013-05-24 00:00:00 GastritisAll NSAIDS [facility] Amoxicillin-Pot Clavulanate Drug Allergy Active Itching 2013-05 [facility] Allergy Active 2013-05-24 00:00:00 Muscle tremors [facility] Povidone-Iodine Drug Allergy Active Itching, Rash 2013-05-24 00:00 :00 [facility] Betamethasone Acet,Sod Phos Drug Allergy Active Palpit ations 2013-05-24 00:00:00 [facility] Clindamycin Drug Allergy Active Itching 2013-05-24 00:00:00 [facility] Iodine And Iodide Containing Products Drug Allergy Active Itching 2013-05-24 00:00:00 IV AND TOPICAL IODINE [facility] Cephalexin Drug Allergy Active Itching 2013-05-24 00:00:00 [facility] Pregabalin Drug Allergy Active 2013-05-24 00:00:00 Muscle tremors [facility] Hydrocodone-Acetaminophen Drug Allergy Active Itching 8 00:00:00 [facility] Penicillins Drug Allergy Active Itching 2013-05-24 00:00:00 [facility] Oxycodone-Acetaminophen Propensity to adverse reactions Active Nausea And Vomiting 2013-05-24 00:00:00 [facility] Metoclopramide Hcl Drug Allergy Active 2013-05-24 00:00 :00 Muscle tremors [facility] Methocarbamol Drug Allergy Active 2013-05-24 00:00:00 unknown [facility] Pentazocine Lactate Drug Allergy Active 2013-05-24 00:00:00 Vomiting [facility] Tetanus Vaccines And Toxoid Drug Allergy Active [place] 2013-05-24 00:00:00 [facility] Tetracyclines Drug Allergy Active Itching 2013-05-24 00:00:00 [facility] Tramadol Drug Allergy Active Itching, Rash 2013-05-24 00:00:00 [facility] Metolazone Drug Allergy Active 2013-05-24 00:00:00 Unknown [facility] Simvastatin Drug Allergy Active 2013-05-24 00:00:00 Muscle weakness, wheezing [facility] Amitriptyline Propensity to adverse reactions to drug [...] to drug Active Itching, Rash 2013-05-24 00:00:00 [facility] Amoxicillin Propensity to adverse reactions to drug Active 2011-10-11 00:00:00 [facility] Amoxicillin-Pot Clavulanate Propensity to adverse reactions to drug A ctive 2011-10-11 00:00:00 [facility] Povidone-Iodine Propensity to adverse reactions to drug Active Rash 2011-10-11 00:00:00 [facility] Clarithromycin Propensity to adverse reactions to drug Active 2011-10-11 00:00:00 [facility] Propoxyphene Propensity to adverse reactions to drug Active 2011-10-11 00:00:00 [facility] Fd And C Blue No.1 Propensity to adverse reactions to drug Active 2011-10-11 00:00:00 [facility] Cephalexin Propensity to adverse reactions to drug Active 2011-10-11 00:00:00 [facility] Penicillins Propensity to adverse reactions to drug Active 2011-10-11 00:00:00 [facility] Oxycodone-Acetaminophen Propensity to adverse reactions to drug Act sharon Nausea and Vomiting 2011-10-11 00:00:00 [facility] ea Pentazocine Lactate Propensity to adverse reactions to drug Active 2011-10-11 00:00:00 [facility] Carbamazepine Propensity to adverse reactions to drug Active 2011-10-11 00:00:00 [facility] Tetanus Vaccines And Toxoid Propensity to adverse reactions to drug A ctive 2011-10-11 00:00:00 [facility] Tetracycline Propensity to adverse reactions to drug Active 2011-10-11 00:00:00 [facility] Tramadol Propensity to adverse reactions to drug Active Rash, Itching, Palpitations 2011-10-11 00:00:00 [facility] Metolazone Propensity to adverse reactions to drug Active 2011-10-11 00:00:00 [facility] Family History Family Member Diagnosis Comments Start Date Stop Date Source Natural father Heart disease [place] [facility] Natural father Liver disease [place] [facility] Natural father Heart [facility] Natural mother Breast cancer [place] [facility] Natural mother COPD [facility] Natural mother Cancer [facility] Natural mother Diabetes [facility] Natural mother Heart disease [place] [facility] Natural mother Hyperlipidemia [place] Natural mother [facility] Natural mother Cancer [facility] Natural mother Hypothyroid [facility] alth Social History Social Habit Start Date Stop Date Quantity Comments Source Sex Assigned At [facility] Alcohol intake 2016-02-01 00:00:00 2016-02-01 00:00:00 Current drinker of alcohol (finding) [facility] Alcohol Comment 2014-09-03 00:00:00 2014-09-03 00:00:00 occassional [facility] Smoking Status Start Date Stop Date Source Never smoker [facility] Medications Ordered Medication Name Filled Medication Name [...] 100 unit/mL injection 2019-01-17 09:32: 31 Yes [id number] Inject under the skin 3 (thr ee) [...] mouth every morning. [facility] thyroid,pork ([employer] THYROID ORAL) 2019-01-17 09:32:31 Yes QD Take [...] by mouth 2 (two) times a day. Chsae Arcos sucralfate (CARAFATE) 1 gram tablet 2019-01-17 [...] QD Take 1 tablet by mouth nightly. [facility] losartan (COZAAR) 100 mg tablet 2016-08-12 00:00:00 Yes Essential hypertension, benign 100mg QD Take 1 tablet by mouth daily. [facility] temazepam (RESTORIL) 30 mg cap 2016-07-23 00:00:00 Yes Insomnia, unspecified TAKE 1 CAPSULE BY MOUTH EVERY DAY AT BEDTIME [facility] insulin lispro (HUMALOG) 100 unit/mL injection 2016-04-03 00 :00:00 Yes Controlled type 2 diabetes mellitus with insulin therapy Inject SQ per sliding scale TID - 10 units if sugars >200; 15 units if sugars >250; 20 units if sugars >300; 25 units if sugars >350. [facility] KLOR-CON 10 10 mEq extended release tablet 2016-03-31 00:00: 00 Yes Diuretic-induced hypokalemia TAKE ONE (1) TABLET(S) BY MOUTH ONCE A DAY. [facility] amLODIPine (NORVASC) 5 mg tablet 2016 00:00:00 Yes Essential hypertension TAKE ONE (1) TABLET(S) BY MOUTH ONCE A DAY. [facility] budesonide-formoterol (SYMBICORT) 160-4.5 mcg/actuation inha ler 2016-02-01 14:22:08 Yes 2{puff} Q.5D Inhale 2 Puffs by mouth 2 ti mes daily. [facility] CALCIUM CARBONATE/VITAMIN D3 (CALCIUM 600 + D,3, OR) 2 14:22:08 Yes Take by mouth. [facility] alth diphenhydrAMINE (BENADRYL) 25 mg capsule 2016-02-01 14:22:08 Yes 50mg Take 50 mg by mouth every 4 hours as needed for Itching. [facility] diphenoxylate-atropine (LOMOTIL) 2.5-0.025 mg per tablet 2016-02-01 14:22:08 Yes 1{tbl} Take 1 tablet by mouth 3 times d aily. [facility] furosemide (LASIX) 40 mg tablet 2016-02-01 00:00:00 Yes Localized edema 40mg QD Take 1 tablet by mouth daily. [facility] blood glucose test strips 2016-01-16 00:00:00 Yes Diabetes type 2, controlled 5 times daily to test blood suga r on insulin. TRUE TEST STRIPS.. [facility] insulin glargine (LANTUS) 100 unit/mL injection 2016-01-16 0 0:00:00 Yes Diabetes type 2, controlled 50U QD Inject 50 Un its under the skin daily PLEASE GIVE TWO VIALS - 1 VIAL NOT ENOUGH FOR ONE MONTH.. [facility] insulin aspart (NOVOLOG) 100 unit/mL injection 2015-11-16 00 :00:00 Yes Diabetes type 2, controlled 20U Inject 20 Un its under the skin 3 times daily Needing to inject 20 units under the skin three times daily for postprandial glucose spike. [facility] INSULIN SYRINGE 0.5mL 30GX5/16" (MONOJEC T ULTRACOMFORT INSULIN SYR 0.5ML 30GX5/16") syringe-needle 2015-11-16 00:00:00 Yes Diabetes type 2, controlled Use to inject medica tion 4 times a day. Use a new syringe each time. [facility] blood glucose meter 2015-11-16 00:00:00 Yes Diabetes type 2, controlled Use as directed. TRUE TEST. [facility] clotrimazole (LOTRIMIN) 1 % external solution 2015-11-15 00: 00:00 Yes Fungal toenail infection Apply 1-2 drops to affected nails 2 times a day. Use a nail file to keep nails thin. Treatment may take up to 1 year. [facility] clopidogrel (PLAVIX) 75 mg tablet 2015-11-07 00:00:00 Yes Coronary artery disease involving [place] coronary artery of [place] heart without angina pectoris 75mg QD Take 1 tablet by mouth daily. [facility] cyclobenzaprine (FLEXERIL) 10 mg tablet 2015-10-20 00:00:00 Yes Fibromyalgia 10mg Take 1 tablet by tenisha th nightly at bedtime as needed for Muscle Spasms. [facility] isosorbide mononitrate (IMDUR) 30 mg extended release tablet 2015-10-19 00:00:00 Yes CAD (coronary artery disease) Take 2 tablets by mouth once a day. [facility] LACTULOSE OR 2015-10-12 18:04:27 Yes Take by mouth. [facility] levothyroxine (SYNTHROID) 175 mcg tablet 2015-10-12 18:04:27 Yes 175ug QD Take 175 mcg by mouth daily. [facility] furosemide (LASIX) 20 mg tablet 2015-09-14 00:00:00 Yes CAD (coronary artery disease) 20mg QD Take 1 tablet by mouth daily. [facility] metoprolol tartrate (LOPRESSOR) 50 mg tablet 2015-08-23 00:0 0:00 Yes Coronary artery disease involving [place] coronary artery of [place] heart without angina pectoris Take 1 tablet by mouth twice a day. [facility] gabapentin (NEURONTIN) 300 mg capsule 2015-08-23 00:00:00 Yes Diabetic polyneuropathy associated with type 2 diabetes mellitus 900mg Take 3 capsules by mouth 3 times daily for 90 days. [facility] promethazine (PHENERGAN) 25 mg tablet 2015-08-21 00:00:00 Yes Nausea 25mg Take 1 tablet by mouth every 8 hours as needed for Nausea or Vom iting. [facility] tiZANidine (ZANAFLEX) 4 mg tablet 2015-06-15 00:00:00 Yes Insomnia, unspecified insomnia 4mg Take 1 tablet by mouth at bedtime nig htly. [facility] zafirlukast (ACCOLATE) 20 mg tablet 2015-06-15 00:00:00 Yes Allergic asthma with stated cause 20mg Q.5D Take 1 tablet by mouth 2 times da ward. [facility] hydrOXYzine (ATARAX) 50 mg tablet 2015-04-20 00:00:00 Yes Aspirin sensitivity 100mg Take 2 tablets by [facility] every 6 hours as needed for Itching. [facility] EPINEPHrine (EPIPEN) 0.3 mg/0.3 mL (1:1,000) injection 2015-04-20 00:00:00 Yes Aspirin sensitivity .3mg Inject 0 .3 mL intramuscularly as needed for Anaphylaxis. [facility] albuterol (PROVENTIL) 2.5 mg /3 mL (0.083 %) nebulizer solut ion 2015-04-14 00:00:00 Yes Shortness of breath 2.5mg Inhale 3 mL by mouth via nebulizer every 4 hours as needed for Wheezing or Shortness of Breath. [facility] beclomethasone (QVAR) 80 mcg/actuation inhaler 2015-04-14 00 :00:00 Yes Shortness of breath 2{puff} Q.5D Inhale 2 Puffs by mouth 2 times daily. [facility] ipratropium (ATROVENT HFA) 17 mcg/actuation inhaler 02-28 00:00:00 Yes Asthmatic bronchitis 2{puff} Inhale 2 Puffs by mouth 4 donavon es daily. [facility] fenofibrate nanocrystallized (TRICOR) 48 mg tablet 2015-02 00:00:00 Yes Hyperlipidemia 48mg QD Take 1 tablet by mouth daily. [facility] ipratropium (ATROVENT) 0.02 % nebulizer solution 2014-08-04 00:00:00 Yes Allergies, Drug .5mg Inhale 2.5 mL by mouth 6 times daily. [facility] nitroGLYCERIN (NITROSTAT) 0.4 mg sublingual tablet 2014-07 00:00:00 Yes CAD (coronary artery disease) Di ssolve 1 tablet under the tongue every 5 minutes (up to 3 doses) as needed for chest pain. If no relief, call 911 [facility] Nebulizer & Compressor For Neb Asha 2014-05-17 00:00:00 Yes Bronchospasms by Misc.(Non-Drug; Combo Route) route. [facility] albuterol (PROVENTIL HFA) 90 mcg/actuation inhaler 2014-02 00:00:00 Yes Asthma 2{puff} Inhale 2 Puffs b y mouth every 4 hours as needed for Wheezing or Shortness of Breath. [facility] lancets (TRUEPLUS LANCETS) 28 gauge 2014-02-14 00:00:00 Yes DMII (diabetes mellitus, type 2) by MISCELLANEOUS route 4 times weekly. [facility] metoprolol (TOPROL-XL) 100 MG 24 hr tablet 2013-12-29 00:00:00 Yes 150mg QD Take 1.5 tablets (150 mg total) by mouth nightly. [facility] tiZANidine (ZANAFLEX) 4 MG tablet 2013-12-29 00:00:00 Yes 2mg QD Take 0.5 tablets (2 mg total) by mouth daily. [facility] insulin detemir 100 unit/mL (3 mL) InPn 2013-12-04 22:07:21 Yes type 2 diabetes mellitus 10U QD Inject 10 Units subcutaneously every mor myke. [facility] budesonide (PULMICORT FLEXHALER) 180 mcg/actuation inhaler 2013-12-04 22:07:21 Yes 2{puff} Q.5D Inhale 2 puffs by mouth via inhaler 2 (two) [facility]OL[facility]/MANNITOL&WATER (RECLAST IV) 2013-10-10 10:09:51 Yes Inject intravenously. yearly [facility] dexlansoprazole 60 mg capsule 2013-10-05 15:31:15 Yes 60mg Q.5D Take 60 mg by mouth 2 (two) times daily. [facility] furosemide (LASIX) 20 MG tablet 2013-10-05 15:31:15 Yes 40mg QD Take 40 mg by mouth daily. [facility] buprenorphine 10 mcg/hour PTWK 2013-10-05 15:31:15 Yes 15ug/h Place 15 mcg/hr onto the skin every 7 days. [facility] MAGNESIUM CITRATE ORAL 2013-10-05 15:31:15 Yes 250mg Q.[id number] Take 250 mg by mouth 3 (three) times daily. [facility] docusate sodium (COLACE) 100 MG capsule 2013-10-05 15:31:14 Yes 100mg Q.5D Take 100 mg by mouth 2 (two) times daily. [facility] ondansetron (ZOFRAN) 4 MG tablet 2013-10-05 15:31:14 Yes 4mg Take 4 mg by mouth 4 (four) times daily as needed. [facility] diphenoxylate-atropine (LOMOTIL) 2.5-0.025 mg per tablet 2013-10-05 15:31:14 Yes 1{tbl} Take 1 tablet by mouth 3 (three) times daily as needed. [facility] zolpidem (AMBIEN) 10 mg tablet 2013-10-05 15:31:14 Yes 10mg Take 10 mg by mouth every night as needed. [facility] cholecalciferol, vitamin D3, 2,000 unit Tab 2013-08-05 12:25:22 Yes 2000U Q.5D Take 2,000 Units by mouth 2 (two) times daily. [facility] chlorthalidone (HYGROTEN) 25 MG tablet 2013-08-05 12:25:22 Yes 25mg QD Take 25 mg by mouth daily. [facility] promethazine (PHENERGAN) 25 MG tablet 2013-08-05 12:25:22 Y es 25mg Take 25 mg by mouth every 4 (four) hours as needed. [facility] glimepiride (AMARYL) 2 MG tablet 2013-07-29 11:41:12 Yes 4mg Q.5D Take 4 mg by mouth 2 (two) times daily. [facility] sucralfate (CARAFATE) 1 g tablet 2013-05-25 02:32:20 Yes 1g Take 1 g by mouth 4 (four) times daily as needed. [facility] lactulose (CEPHULAC) 20 gram packet 2013-05-25 02:32:20 Yes 20g Take 20 g by mouth every 6 (six) hours as needed. [facility] potassium chloride (KLOR-CON) 10 MEQ CR tablet 2013-05-24 20:27: 59 Yes 10meq Q.5D Take 10 mEq by mouth 2 (two) times daily. [facility] saxagliptin 5 mg Tab 2013-05-24 20:27:59 Yes 5mg QD Take 5 mg by mouth daily. [facility] milnacipran (SAVELLA) 50 mg Tab 2013-05-24 20:27:59 Yes 50mg Q.5D Take 50 mg by mouth 2 (two) times daily. [facility] calcium carbonate (TUMS) 500 mg chewable tablet 2013-05-24 20:27 :59 Yes 1{tbl} Q.[id number] Take 1 tablet by mouth 3 (three) times daily . [facility] albuterol (VENTOLIN HFA) 90 mcg/actuation inhaler 2013-05-24 20:27:59 Yes 1{puff} Inhale 1 puff by mouth via inhaler every 6 (six) hours as needed. [facility] multivitamin capsule 2013-05-24 20:27:59 Yes 1{capsule} QD Take 1 capsule by mouth daily. [facility] losartan (COZAAR) 100 MG tablet 2013-05-24 20:18:31 Yes 100mg QD Take 100 mg by mouth daily. [facility] [place] dicyclomine (BENTYL) 20 mg tablet 2013-05-24 20:18:30 Yes 20mg Take 20 mg by mouth every 6 (six) hours. [facility] linaclotide (LINZESS) 290 mcg Cap 2013-05-24 20:18:30 Yes 290ug QD Take 290 mcg by mouth daily. [facility] Allopurinol Allopurinol Yes [address] [facility] [place] [place] Chlorzoxazone Chlorzoxazone Yes 500 Twice A Day [facility] [place] [place] Clopidogrel Bisulfate (Clopidogrel) 75 Mg TABLET Clopi dogrel Bisulfate (Clopidogrel) 75 Mg TABLET Yes [address] [facility] [place] [place] Colchicine (Colcrys) 0.6 Mg TABLET Colchicine (Colcrys) 0.6 Mg TABLET Yes .6 Daily as needed for .joint Pain [facility] [place] [place] Diphenhydramine Hcl (Benadryl) 25 Mg CAPSULE Diphenhyd ramine Hcl (Benadryl) 25 Mg CAPSULE Yes 50 Every 4 Hours as needed for Allergy [facility] [place] [place] Diphenoxylate Hcl/Atropine (Lomotil Tablet) 1 Each TAB LET Diphenoxylate Hcl/Atropine (Lomotil Tablet) 1 Each TABLET Yes 1 Every 6 Hours as needed for Diarrhea [facility] Fluticasone/Vilanterol (Breo Ellipta 100-25 Mcg Inh) 1 Each BLST.W.DEV Fluticasone/Vilanterol (Breo Ellipta 100-25 Mcg Inh) 1 Each BLST.W.DEV Yes [address] [facility] [place] [place] Furosemide Furosemide Yes 40 Daily [facility] Gabapentin Gabapentin Yes 1200 Three Times A Day [facility] [place] [place] Insulin Glargine (Lantus 3ML Pen) 100 Units/1 Ml INJ I nsulin Glargine (Lantus 3ML Pen) 100 Units/1 Ml INJ Yes [address] [facility] [place] [place] Insulin Lispro (Humalog) 100 Unit/1 Ml CARTRIDGE Insul in Lispro (Humalog) 100 Unit/1 Ml CARTRIDGE Yes Thre e Times Daily With Meals as needed for Blood Sugar [facility] Lavender Oil Lavender Oil Yes [address] [facility] [place] [place] Letrozole Letrozole Yes 2.5 Daily [facility] Losartan Potassium Losartan Potassium Yes 12.[address] [facility] [place] [place] Metoprolol Tartrate Metoprolol Tartrate Yes 12.[address] [facility] [place] [place] Midodrine Hcl Midodrine Hcl Yes 2.5 Three Times A Day [facility] [place] [place] Mirabegron (Myrbetriq) 50 Mg TAB.ER.24H Mirabegron (Myrbetri q) 50 Mg TAB.ER.24H Yes 50 Daily [facility] Nitroglycerin Nitroglycerin Yes .4 Every 5 Minutes as needed for Chest Pain [facility] Pantoprazole Sodium (Protonix) 40 Mg TABLET. Pantopr azole Sodium (Protonix) 40 Mg TABLET. Yes 40 Twice A Day C [facility] Promethazine Hcl Promethazine Hcl Yes 25 Every 4 Hours as needed for Nausea [facility] Ranolazine (Ranexa) 500 Mg TABSR Ranolazine (Ranexa) 500 Mg TABSR Yes 1000 Twice A Day [facility] [place] [place] Spironolactone Spironolactone Yes [address] [facility] [place] [place] Sucralfate Sucralfate Yes 1 Before Meals And A t Bedtime [facility] [place] [place] Temazepam Temazepam Yes 30 Bedtime as needed fo r Sedation [facility] [place] [place] Thyroid,Pork ([place] Thyroid) 120 Mg TABLET Thyroid,Po rk ([place] Thyroid) 120 Mg TABLET Yes [address] [facility] [place] [place] Tizanidine Hcl Tizanidine Hcl Yes 4 Da ward as needed for Muscle Spasms [facility] Trazodone Hcl Trazodone Hcl Yes 150 Bedtime as n eeded for Sleep [facility] Ascorbic Acid (Vitamin C) 500 Mg TABLET Ascorbic Acid (Vitam in C) 500 Mg TABLET 2019-10-23 00:00:00 No 500 Bedtime [facility] Cholecalciferol (Vitamin D3) (Vitamin D3) 5,000 Unit C APSULE Cholecalciferol (Vitamin D3) (Vitamin D3) 5,000 Unit CAPSULE 2019-04-23 00:00:00 No [id number] Daily [facility] Chromium Picolinate Chromium Picolinate 2019-04-23 00:00:00 No 2 Daily [facility] Clopidogrel Bisulfate (Plavix) 75 Mg TABLET Clopidogre l Bisulfate (Plavix) 75 Mg TABLET 2019-04-23 00:00:00 No 75 Daily [facility] Health Eye Health 2019-04-23 00:00:00 No [address] [facility] [place] [place] Ferrous Sulfate Ferrous Sulfate 2019-04-23 00:00:00 No 65 Bedtime [facility] Furosemide Furosemide 2019-04-23 00:00:00 No 40 Use As Directed [facility] [place] [place] Gabapentin Gabapentin 2019-04-23 00:00:00 No 900 Thr ee Times A Day [facility] [place] [place] Levothyroxine Sodium Levothyroxine Sodium 2019-04-23 00:00:00 No 150 Daily [facility] Liothyronine Sodium Liothyronine Sodium 2019-04-23 00:00:00 No 25 Daily [facility] Magnesium Oxide Magnesium Oxide 2019-04-23 00:00:00 No 400 Bedtime [facility] Phenazopyridine Hcl Phenazopyridine Hcl 2019-04-23 00:00:00 No 200 Three Times A Day as needed for Urinary Spasms [facility] [place] [place] Tea Tree Oil Tea Tree Oil 2019-04-23 00:00:00 No 30 Daily [facility] Trazodone Hcl Trazodone Hcl 2019-04-23 00:00:00 No 100 Bedtime as needed for Sleep [facility] Ubidecarenone (Coq-10) 100 Mg CAPSULE Ubidecarenone (Coq-10) 100 Mg CAPSULE 2019-04-23 00:00:00 No 400 Bedtime [facility] Allopurinol Allopurinol 2017-12-22 00:00:00 No 300 D aily [facility] Insulin Glargine (Lantus 3ML Pen) 100 Units/1 Ml INJ I nsulin Glargine (Lantus 3ML Pen) 100 Units/1 Ml INJ 2017-12-22 00:00:00 No 30 Bedtime [facility] Isosorbide Mononitrate (Isosorbide Mononitrate Er) 30 Mg TAB.ER.24H Isosorbide Mononitrate (Isosorbide Mononitrate Er) 30 Mg TAB.ER.24H 201 03-21-08 00:00:00 No 60 Daily [facility] Isosorbide Mononitrate (Isosorbide Mononitrate Er) 30 Mg TAB.ER.24H Isosorbide Mononitrate (Isosorbide Mononitrate Er) 30 Mg TAB.ER.24H 201 03-21-08 00:00:00 No 30 Bedtime [facility] Levothyroxine Sodium (Synthroid) 125 Mcg TAB Levothyro xine Sodium (Synthroid) 125 Mcg TAB 2017-12-22 00:00:00 No 125 Today At 6:[address] [facility] [place] [place] Losartan Potassium Losartan Potassium 2017-12-22 00:00:00 No 25 Daily [facility] Magnesium Oxide Magnesium Oxide 2017-12-22 00:00:00 No 400 Daily [facility] Metronidazole (Flagyl) 250 Mg TABLET Metronidazole (Flagyl) 250 Mg TABLET 2017-12-22 00:00:00 No 500 Three Times A Day [facility] [place] [place] Promethazine Hcl Promethazine Hcl 2017-12-22 00:00:00 No 25 Every 6 Hours as needed for Nausea [facility] [place] [place] Cranberry Cranberry 2017-12-01 00:00:[address] [facility] [place] [place] Nitrofurantoin Macrocrystal (Nitrofurantoin) 100 Mg CA PSULE Nitrofurantoin Macrocrystal (Nitrofurantoin) 100 Mg CAPSULE 2017-12-01 00:00:00 No 100 Twice A Day [facility] Amlodipine Besylate Amlodipine Besylate 2017-11-17 00:00:00 No 2.5 Twice A Day [facility] Hydrochlorothiazide Hydrochlorothiazide 2017-11-17 00:00:00 No 25 Daily [facility] Insulin Lispro (Humalog) 100 Unit/1 Ml INSULN.PEN Insu nilsa Lispro (Humalog) 100 Unit/1 Ml INSULN.PEN 2017-11-17 00:00:00 No Bef ore Meals [facility] [place] [place] Isosorbide Mononitrate Isosorbide Mononitrate 2017-11-17 00:00:00 No 60 Twice A Day [facility] Omeprazole Omeprazole 2017-11-17 00:00:00 No [address] [facility] [place] [place] Temazepam Temazepam 2017-10-02 00:00:00 No [address] [facility] [place] [place] Insulin Glargine (Lantus 3ML Pen) 100 Units/1 Ml INJ I nsulin Glargine (Lantus 3ML Pen) 100 Units/1 Ml INJ 2017-08-25 00:00:00 No Before Meals [facility] [place] [place] Immunizations Ordered Immunization Name Filled Immunization Name Date Status Comments Source PPV 23 Pneumococcal Polysaccaride 2010-12-16 00:00:00 Comp [facility] Vital Signs Vital Name Observation Time Observation Value Comments Source Body Temperature 2020-03-06 15:37:00 98.2 [degF] [facility] [place] [place] BMI (Body Mass Index) 2020-03-06 00:42:00 42.0 kg/m2 [facility] [place] [place] Weight 2020-03-04 04:12:00 260 [lb_av] [facility] [place] [place] Procedures Procedure Date / Time Performed Performing Clinician [facility] e CT of abdomen and pelvis without contrast 2020-03-04 00:00:[address] [facility] [place] [place] X-ray of chest, two views 2019-10-25 00:00:00 KRISTY RODRIGUEZ [facility] X-ray of chest, two views 2019-09-04 00:00:[address] [facility] [place] [place] Plan of Care Planned Activity Planned Date Details Comments Source Future Scheduled Test 2020-05-17 00:00:00 IMM Influenza Seas onal May to October (>/= 19 yrs) [code = IMM Influenza Seasonal May to October (>/= 19 yrs)] [facility] Scheduled Test 2020-03-17 00:00:00 INFLUENZA VACCINE [code = INFLUENZA VACCINE] [facility] Scheduled Test 2019-01-15 00:00:00 Screening for kevin gnant neoplasm of colon (procedure) [code = 758578063] [facility] Scheduled Test 2017-02-18 00:00:00 CORONARY ARTERY DI SEASE AGE 18 AND UP [code = CORONARY ARTERY DISEASE AGE 18 AND UP] [facility] Scheduled Test 2017-02-18 00:00:00 Hemoglobin A1c polly surement (procedure) [code = 85637572] [facility] Scheduled Test 2016-10-03 00:00:00 Breast Cancer Scrn (Yearly) [code = Breast Cancer Scrn (Yearly)] [facility] Scheduled Test 2016-09-21 00:00:00 DM Foot Exam (Year ly) [code = DM Foot Exam (Yearly)] [facility] Scheduled Test 2016-06-22 00:00:00 DM Retinal Exam (Y early) [code = DM Retinal Exam (Yearly)] [facility] Scheduled Test 2016 00:00:00 65+ PNEUMOCOCCAL V ACCINE (1 of 2 - PCV13) [code = 65+ PNEUMOCOCCAL VACCINE (1 of 2 - PCV13)] [facility] Scheduled Test 2016 00:00:00 IMM Pneumococcal A ge 65 and Up [code = IMM Pneumococcal Age 65 and Up] [facility] Scheduled Test 2001 00:00:00 BREAST CANCER SCRE ENING [code = BREAST CANCER SCREENING] [facility] Scheduled Test 2001 00:00:00 COLONOSCOPY SCREEN ING [code = COLONOSCOPY SCREENING] [facility] Scheduled Test 2001 00:00:00 SHINGLES VACCINES (#1) [code = SHINGLES VACCINES (#1)] [facility] Future Scheduled Test 1961 00:00:00 DIABETIC FOOT EXAM [code = DIABETIC FOOT EXAM] [facility] Scheduled Test 1951 00:00:00 DIABETIC RETINAL E YE EXAM [code = DIABETIC RETINAL EYE EXAM] [facility] Abdominal Pain - Adult [facility] Encounters Start Date/Time End Date/Time Encounter Type Admission Type Attendi [facility] Care Department Encounter ID Source 2019-10-23 20:51:00 2019-10-26 19:07:00 Discharged Inpatient 1 DIXON RODRIGUEZAHAM [facility] [id number] [facility] 2019-10-05 07:14:00 2019-10-05 07:14:00 Registered Clinic 3 DIXON RODRIGUEZAHAM [facility] [id number] [facility] 2019-09-04 11:47:00 2019-09-06 20:14:00 Discharged Inpatient (obs) 1 BOSTON SALEEM [facility] [id number] [facility] 2019-08-24 10:06:00 2019-08-24 10:06:[id number] [facility] 2019-04-25 13:28:00 2019-04-27 14:38:00 Discharged Inpatient 1 CADE FORDE [facility] [id number] [facility] 2019-01-14 13:35:00 2019-01-14 13:35:00 Registered Clinic 3 DIXON RODRIGUEZAHAM [facility] [id number] [facility] 2017-12-21 10:56:00 2017-12-21 14:58:00 Departed Emergency Room ER NESSA BAUTISTA [facility] [id number] [facility] [place] [place] 2017-11-30 22:06:00 2017-12-04 12:36:00 Discharged Inpatient (obs) ER NIRALI CONTRERAS [facility] [id number] [facility] [place] [place] 2017-11-17 10:41:00 2017-11-17 10:41:00 Registered Surgical Day Car FADUMO Martinez [facility] [id number] [facility] [place] [place] 2017-10-29 20:57:00 2017-10-30 03:24:00 Departed Emergency Room [facility] [id number] [facility] 2017-10-14 20:32:00 2017-10-17 12:23:00 Discharged Inpatient (obs) ER NIRALI CONTRERAS [facility] [id number] [facility] [place] [place] 2017-10-06 10:35:00 2017-10-06 15:26:00 Departed Emergency Room ER NIRALI VALDEZ [facility] [id number] [facility] [place] [place] 2017-10-02 10:16:00 2017-10-02 10:16:00 Registered Surgical Day Care [facility] [id number] [facility] 2017-09-17 08:53:00 2017-09-17 08:53:00 Registered Clinic NUNU VIEYRA [facility] [id number] [facility] 2017-08-26 05:09:00 2017-08-26 05:09:00 Registered Surgical Day Car taras CHAVIRA [facility] [id number] [facility] [place] [place] 2017-06-17 13:35:00 2017-06-17 13:35:00 Registered Clinic NUNU VIEYRA [facility] [id number] [facility] Results Test Description Test Time Test Comments Results Result Comments Source Capillary blood glucose measurement by glucometer (mas s/volume) 2020-03-06 07:44:00 Test Item Bedside Glucose (test code = 94356-2) 85 70-120 Meter ID: [id number] [place] [place] leukocytes automated count (number/volume)2020-03-06 07:00:00* Test Item Value Reference Range Interpretation Comments White Blood Count (test code = 6690-2) 7.23 4.8-10.[address] [facility] [place] erythrocytes automated count (number/volume)2020-03-06 07:00:00* Test Item Value Reference Range Interpretation Comments Red Blood Count (test code = 789-8) 3.58 3.6-5.[address] [facility] [place] hemoglobin measurement (moles/volume)2020-03-06 07:00:00* Test Item Value Reference Range Interpretation Comments Hemoglobin (test code = 18414-5) 11.4 12.0-16.[address] [facility] [place]Autom[place] blood hematocrit (volume fraction)2020-03-06 07:00:00* Test Item Value Reference Range Interpretation Comments Hematocrit (test code = 4544-3) 35.7 34.2-44.[address] [facility] [place]Autom[place] erythrocyte mean corpuscular [id number] 07:00:00* Test Item Value Reference Range Interpretation Comments Mean Corpuscular Volume (test code = 787-2) 99.7 81-[address] [facility] [place] erythrocyte mean corpuscular hemoglobin (mass per erythrocyte)2020-03-06 07:00:00* Test Item Value Reference Range Interpretation Comments Mean Corpuscular Hemoglobin (test code = 785-6) 31.8 28-[address] [facility] [place] erythrocyte mean corpuscular hemoglobin concentration measurement (mass/volume)2020-03-06 07:00:00* Test Item Value Reference Range Interpretation Comments Mean Corpuscular Hemoglobin Concent (test code = 786-4) 31.9 31-[address] [facility] [place], TXRDW [id number] 07:00:00* Test Item Value Reference Range Interpretation Comments Red Cell Distribution Width (test code = 23273-8) 14.3 11.7 -14.[address] [facility] [place] blood platelet count (count/volume)2020-03-06 07:00:00* Test Item Value Reference Range Interpretation Comments Platelet Count (test code = 777-3) 225 140-[address] [facility] [place] blood segmented neutrophil count as percentage of total [id number] 07:00:00* Test Item Value Reference Range Interpretation Comments Neutrophils (%) (Auto) (test code = 43574-7) 66.2 38.7-80.[address] [facility] [place]Autom[place] lymphocyte count as percentage ot total [id number] 07:00:00* Test Item Value Reference Range Interpretation Comments Lymphocytes (%) (Auto) (test code = 736-9) 20.3 18.0-39.[address] [facility] [place]Autom[place] monocyte count as percentage of total [id number] 07:00:00* Test Item Value Reference Range Interpretation Comments Monocytes (%) (Auto) (test code = 5905-5) 10.8 4.4-11.[address] [facility] [place]Autom[place] blood eosinophil count as percentage of total [id number] 07:00:00* Test Item Value Reference Range Interpretation Comments Eosinophils (%) (Auto) (test code = 713-8) 1.7 0.0-6.[address] [facility] [place]Autom[place] blood basophil count as percentage of total [id number] 07:00:00* Test Item Value Reference Range Interpretation Comments Basophils (%) (Auto) (test code = 706-2) 0.6 0.0-1.[address] [facility] [place], TXFluoroscopic procedure less than one hour [id number] 07:00:00* Test Item Value Reference Range Interpretation Comments IM GRANULOCYTES % (test code = IM GRANULOCYTES %) 0.4 0.0- 1.[address] [facility] [place]Autom[place] neutrophil count 2020-03-06 07:00:00* Test Item Value Reference Range Interpretation Comments Neutrophils # (Auto) (test code = 751-8) 4.8 2.1-6.[address] [facility] [place] lymphocytes count (number/volume) 2020-03-06 07:00:00* Test Item Value Reference Range Interpretation Comments Lymphocytes # (Auto) (test code = 97259-3) 1.5 1.0-3.[address] [facility] [place] monocytes automated count (number/volume)2020-03-06 07:00:00* Test Item Value Reference Range Interpretation Comments Monocytes # (Auto) (test code = 742-7) 0.8 0.2-0.[address] [facility] [facility] [place], [place]Automated blood eosinophil count 2020-03-06 07:00:00* Test Item Value Reference Range Interpretation Comments Eosinophils # (Auto) (test code = 711-2) 0.1 0.0-0.[address] [facility] [place], [place]Automated blood basophil count (count/volume)2020-03-06 07:00:00* Test Item Value Reference Range Interpretation Comments Basophils # (Auto) (test code = 704-7) 0.0 0.0-0.[address] [facility] [place], TXFluoroscopic procedure less than one hour qnctezkq2612-99-63 07:00:00* Test Item Value Reference Range Interpretation Comments Absolute Immature Granulocyte (auto (tk t code = Absolute Immature Granulocyte (auto) 0.03 0-0.1 [facility] sodium measurement (moles/volume)2020-03-06 07:00:00* Test Item Value Reference Range Interpretation Comments Sodium Level (test code = 2951-2) 134 136-145 [facility] potassium measurement (moles/volume)2020-03-06 07:00:00* Test Item Value Reference Range Interpretation Comments Potassium Level (test code = 2823-3) 3.7 3.5-5.1 [facility] chloride measurement (moles/volume)2020-03-06 07:00:00* Test Item Value Reference Range Interpretation Comments Chloride Level (test code = 2075-0) 98 98-107 [facility] carbon dioxide, total measurement (moles/volume)2020-03-06 07:00:00* Test Item Value Reference Range Interpretation Comments Carbon Dioxide Level (test code = 2028-9) 24 22-29 [facility] anion ysz1425-16-93 07:00:00* Test Item Value Reference Range Interpretation Comments Anion Gap (test code = 87516-1) 15.7 8-16 [facility] urea nitrogen measurement (mass/volume)2020-03-06 07:00:00* Test Item Value Reference Range Interpretation Comments Blood Urea Nitrogen (test code = 3094-0) 23 7-26 [facility] creatinine measurement (mass/volume)2020-03-06 07:00:00* Test Item Value Reference Range Interpretation Comments Creatinine (test code = 2160-0) 1.47 0.57-1.11 [facility] urea nitrogen/creatinine mass grjfb1406-98-45 07:00:00* Test Item Value Reference Range Interpretation Comments BUN/Creatinine Ratio (test code = 3097-3) 16 6-[address] [facility] [place], TXEstimated glomerular filtration rate (GFR) vtpzaifaauxsx7297-59-54 07:00:00* Test Item Value Reference Range Interpretation Comments Estimat Glomerular Filtration Rate (test code = 996158979) 35 >60 Ranges were taken from the National Kidney Disease Education Program and the [facility] Kidney Foundation literature.Reference ranges:60 or greater: Fhgddd38-77 ( for 3 consecutive months): Chronic kidney disease 15 or less: Kidney failure[facility] [place], TXGlucose mrxvavcrjoy3728-69-57 07:00:00* Test Item Value Reference Range Interpretation Comments Glucose Level (test code = HNQ5040) 73 74-118 [facility] calcium measurement (mass/volume)2020-03-06 07:00:00* Test Item Value Reference Range Interpretation Comments Calcium Level (test code = 81291-3) 8.5 8.4-10.[address] [facility] [place], TXPhosphorus znbdritrjwj2964-69-80 07:00:00 * Test Item Value Reference Range Interpretation Comments Phosphorus Level (test code = DPG2200) 4.0 2.3-4.7 [facility] magnesium measurement (mass/volume)2020-03-06 07:00:00* Test Item Value Reference Range Interpretation Comments Magnesium Level (test code = 37000-5) 1.2 1.3-2.1 [facility] plasma total bilirubin measurement (mass/volume)2020-03-06 07:00:00* Test Item Value Reference Range Interpretation Comments Total Bilirubin (test code = 1975-2) 0.8 0.2-1.[address] [facility] [place], TXFluoroscopic procedure less than one hour yarexpgq4408-68-85 07:00:00* Test Item Value Reference Range Interpretation Comments Aspartate Amino Transf (AST/SGOT) (test code = Aspartate Amino Transf (AST/SGOT)) 35 5-34 [facility] or plasma alanine aminotransferase measurement (enzymatic activity/volume)2020-03-06 07:00:00* Test Item Value Reference Range Interpretation Comments Alanine Aminotransferase (ALT/SGPT) (test code = 1742-6) 28 0-55 [facility] protein measurement (mass/volume)2020-03-06 07:00:00* Test Item Value Reference Range Interpretation Comments Total Protein (test code = 2885-2) 6.7 6.5-8.1 [facility] albumin measurement (mass/volume)2020-03-06 07:00:00* Test Item Value Reference Range Interpretation Comments Albumin (test code = 1751-7) 3.5 3.5-5.[address] [facility] [place], TXPlasma globulin measurement (mass/volume) 2020-03-06 07:00:00* Test Item Value Reference Range Interpretation Comments Globulin (test code = 11674-4) 3.2 2.3-3.5 [facility] albumin/globulin mass ibhwk3876-82-94 07:00:00* Test Item Value Reference Range Interpretation Comments Albumin/Globulin Ratio (test code = 1759-0) 1.1 0.8-2.0 [facility] plasma alkaline phosphatase measurement (enzymatic activity/volume)2020-03-06 07:00:00* Test Item Value Reference Range Interpretation Comments Alkaline Phosphatase (test code = 6768-6) 95 40-[address] [facility] [place], TXCT ABDOMEN/PELVIS GV7015-13-60 06:22:00 [facility] [address] [address] Patient Name: RODGER NICHOLS MR #: [id number] : 1950 Age/[facility]: 69[id number] Req #: [id number] Adm Physician: KRISTY RODRIGUEZ MD Ordered by: NEFTALY MORNOY MD Report #: [id number] Location: MED/SURG2 [place] [facility] [facility] [place] Procedure: [id number] CT/C T ABDOMEN/PELVIS WO Exam Date: 03/04/20 [...] Level (test code = 1798-8) 21 25-125 [facility] plasma lipase measurement (enzymatic activity/volume)2020-03-04 05:25:00* Test Item Value Reference Range Interpretation Comments Lipase (test code = 3040-3) 8 8-[address] [facility] [place], TXUrine color kcloyajfvebjp3829-55-40 04:55:00* Test Item Value Reference Range Interpretation Comments Urine Color (test code = 5778-6) YELLOW YELLOW [facility] [place], TXUrine pfonshe2960-92-56 04:55:00* Test Item Value Reference Range Interpretation Comments Urine Clarity (test code = 43273-6) CLEAR CLEAR [facility] Centerpecific gravity of Urine by Test strip 2020-03-04 04:55:00* Test Item Value Reference Range Interpretation Comments Urine Specific [place] (test code = 5811-5) 1.015 1.010-1.[address] [facility] [place], TXUrine pH measurement by automated test tgxeq0307-91-23 04:55:00* Test Item Value Reference Range Interpretation Comments Urine pH (test code = 10906-3) 5 5-[address] [facility] [place], TXUrine leukocyte esterase detection by zkuhujdb9819-95-14 04:55:00* Test Item Value Reference Range Interpretation Comments Urine Leukocyte Esterase (test code = 5799-2) NEGATIVE NEGATIVE [facility] [place], TXUrine nitrite owmeypwzk7617-09-89 04:55:00* Test Item Value Reference Range Interpretation Comments Urine Nitrite (test code = 29597-2) NEGATIVE NEGATIVE [facility] [place], TXUrine protein measurement by test strip (mass/volume)2020-03-04 04:55:00* Test Item Value Reference Range Interpretation Comments Urine Protein (test code = 5804-0) NEGATIVE NEGATIVE [facility] [place], TXUrine glucose ninponszk4075-33-33 04:55:00* Test Item Value Reference Range Interpretation Comments Urine Glucose (UA) (test code = 2349-9) NEGATIVE NEGATIVE [facility] [place], TXUrine ketones detection by automated test dhfnx9974-34-83 04:55:00* Test Item Value Reference Range Interpretation Comments Urine Ketones (test code = 90100-7) NEGATIVE NEGATIVE [facility] [place], TXUrine urobilinogen measurement by test strip (mass/volume)2020-03-04 04:55:00* Test Item Value Reference Range Interpretation Comments Urine Urobilinogen (test code = 57641-8) 0.2 0.2-[address] [facility] [place], TXUrine total bilirubin measurement (mass/volume)2020-03-04 04:55:00* Test Item Value Reference Range Interpretation Comments Urine Bilirubin (test code = 1978-6) 1+ NEGATIVE [facility] [place], TXUrine erythrocytes gkvwpqyxt7837-87-85 04:55:00* Test Item Value Reference Range Interpretation Comments Urine Blood (test code = 25214-9) NEGATIVE NEGATIVE [facility] [place], TXAutomated urine sediment leukocyte count by microscopy (number/high power field)2020-03-04 04:55:00* Test Item Value Reference Range Interpretation Comments Urine WBC (test code = 5821-4) 0-5 0-[address] [facility] [place], TXErythrocytes detection in urine sediment by light ykntijajdk3273-72-85 04:55:00* Test Item Value Reference Range Interpretation Comments Urine RBC (test code = 79028-8) 0-5 0-[address] [facility] [place], TXBacteria detection in urine sediment by light rrwvahhyca2860-85-66 04:55:00* Test Item Value Reference Range Interpretation Comments Urine Bacteria (test code = 48974-8) NONE NONE [facility] [place], TXEpithelial cells detection in urine sediment by light igrexpsrar5066-72-10 04:55:00* Test Item Value Reference Range Interpretation Comments Urine Epithelial Cells (test code = 47894-1) FEW NONE [facility] [place], TXMucus detection in urine sediment by light iyznyniprb3609-69-34 04:55:00* Test Item Value Reference Range Interpretation Comments Urine Mucus (test code = 8247-9) FEW RARE [facility] [place], TXMODIFIED BA. CKACYID6980-78-04 10:18:00 [facility] [address] [place] [address] Patient Name: RODGER NICHOLS MR #: [id number] : 1950 Age/Sex: 69/F Req #: [id number] Adm Physician: KRISTY RODRIGUEZ MD Ordered by: KRISTY RODRIGUEZ MD Report #: [id number] [facility] Procedure: 27 DX/MODIFIED BA. SWALLOW Exam Date: [...] 1018 COPY TO: KRISTY RODRIGUEZ MD Bedside Aspedfz5559-84-92 11:36:00* Test Item Value Reference Range Interpretation Comments Bedside Glucose (test code = 87766-9) 127 70-120 H Meter ID: [id number] [place], TXBlood Culture 2019-10-25 19:10:00* Test Item Value Reference Range Interpretation Comments Blood Culture (test code = 10443438) NO GROWTH AFTER [address] [facility] [place], TXCHEST 2 NSIJI5646-58-66 12:10:00 [facility] [address] [address] Patient Name: RODGER NICHOLS MR #: [id number] : 1950 Age/Sex: 69/F Req #: [id number] Adm Physician: KRISTY RODRIGUEZ MD Ordered by: KRISTY RODRIGUEZ MD Report #: [id number] Location: MED/SURG3 Room/Bed: [facility] Procedure: DX/CHEST 2 VIEWS Exam Date: 10/25/19 [...] COPY TO: AB DEIDRA RODRIGUEZ MD Sodium Lurfn7267-55-07 07:00:00* Test Item Value Reference Range Interpretation Comments Sodium Level (test code = 2951-2) 139 136-145 [facility] Qtlsv9580-57-01 07:00:00* Test Item Value Reference Range Interpretation Comments Potassium Level (test code = 2823-3) 4.7 3.5-5.[address] [facility] [place], TXChloride Ibbqo9487-41-03 07:00:00* Test Item Value Reference Range Interpretation Comments Chloride Level (test code = 2075-0) 102 98-[address] [facility] [place], TXCarbon Dioxide Llteb5737-46-84 07:00:00* Test Item Value Reference Range Interpretation Comments Carbon Dioxide Level (test code = 2028-9) 30 22-[address] [facility] [place], TXAnion Yoh1109-87-24 07:00:00* Test Item Value Reference Range Interpretation Comments Anion Gap (test code = 26984-5) 11.7 8-[address] [facility] [place], TXBlood Urea Xcecsjnk5417-64-83 07:00:00* Test Item Value Reference Range Interpretation Comments Blood Urea Nitrogen (test code = 3094-0) 35 7-[address] [facility] [place], TXCreatinine2020-03-10 07:00:00* Test Item Value Reference Range Interpretation Comments Creatinine (test code = 2160-0) 1.15 0.57-1.[address] [facility] [place], TXBUN/Creatinine Ymynu2423-80-68 07:00:00* Test Item Value Reference Range Interpretation Comments BUN/Creatinine Ratio (test code = 3097-3) 30 6-[address] [facility] [place], TXEstimat Glomerular Filtration Rate 2019-10-25 07:00:00* Test Item Value Reference Range Interpretation Comments Estimat Glomerular Filtration Rate (test code = 862143753) 47 >60 L Ranges were taken from the National Kidney Disease Education Program and the [facility] Kid[facility] Foundation literature.Reference ranges:60 or greater: Wqevpo67-16 ( for 3 consecutive months): Chronic kidney disease 15 or less: Kidney failure[facility] [place], TXGlucose Cuaml4928-95-21 07:00:00* Test Item Value Reference Range Interpretation Comments Glucose Level (test code = DRS5772) 147 74-[address] [facility] [place], TXCalcium Cakll6847-18-91 07:00:00* Test Item Value Reference Range Interpretation Comments Calcium Level (test code = 51392-6) 9.1 8.4-10.[address] [facility] [place], TXWhite Blood Wtdnr8394-19-20 06:43:00* Test Item Value Reference Range Interpretation Comments White Blood Count (test code = 6690-2) 13.86 4.8-10.[address] [facility] [place], TXRed Blood Afsrx8396-44-14 06:43:00* Test Item Value Reference Range Interpretation Comments Red Blood Count (test code = 789-8) 3.19 3.6-5.[address] [facility] [place], TXHemoglobin2020-03-10 06:43:00* Test Item Value Reference Range Interpretation Comments Hemoglobin (test code = 42279-6) 9.9 12.0-16.[address] [facility] [place], TXHematocrit2020-03-10 06:43:00* Test Item Value Reference Range Interpretation Comments Hematocrit (test code = 4544-3) 31.0 34.2-44.[address] [facility] [place], TXMean Corpuscular Ubilys8025-31-67 06:43:00* Test Item Value Reference Range Interpretation Comments Mean Corpuscular Volume (test code = 787-2) 97.2 81-[address] [facility] [place], TXMean Corpuscular Hnrffeqnth4532-34-62 06:43:00* Test Item Value Reference Range Interpretation Comments Mean Corpuscular Hemoglobin (test code = 785-6) 31.0 28-[address] [facility] [place], TXMean Corpuscular Hemoglobin Concent 2019-10-25 06:43:00* Test Item Value Reference Range Interpretation Comments Mean Corpuscular Hemoglobin Concent (test code = 786-4) 31.9 31-[address] [facility] [place], TXRed Cell Distribution Ywnrz1374-35-06 06:43:00* Test Item Value Reference Range Interpretation Comments Red Cell Distribution Width (test code = 70671-7) 14.9 11.7 -14.[address] [facility] [place], TXPlatelet Kvzws3901-58-17 06:43:00* Test Item Value Reference Range Interpretation Comments Platelet Count (test code = 777-3) 285 140-[address] [facility] [place], TXNeutrophils (%) (Auto)2019-10-25 06:43:00 * Test Item Value Reference Range Interpretation Comments Neutrophils (%) (Auto) (test code = 73433-1) 87.0 38.7-80.[address] [facility] [place], TXLymphocytes (%) (Auto)2019-10-25 06:43:00 * Test Item Value Reference Range Interpretation Comments Lymphocytes (%) (Auto) (test code = 736-9) 5.4 18.0-39.[address] [facility] [place], TXMonocytes (%) (Auto)2019-10-25 06:43:00* Test Item Value Reference Range Interpretation Comments Monocytes (%) (Auto) (test code = 5905-5) 6.7 4.4-11.[address] [facility] [place], TXEosinophils (%) (Auto)2019-10-25 06:43:00 * Test Item Value Reference Range Interpretation Comments Eosinophils (%) (Auto) (test code = 713-8) 0.0 0.0-6.[address] [facility] [place], TXBasophils (%) (Auto)2019-10-25 06:43:00* Test Item Value Reference Range Interpretation Comments Basophils (%) (Auto) (test code = 706-2) 0.1 0.0-1.[address] [facility] [place], TXIM GRANULOCYTES %2019-10-25 06:43:00* Test Item Value Reference Range Interpretation Comments IM GRANULOCYTES % (test code = IM GRANULOCYTES %) 0.8 0.0- 1.[address] [facility] [place], TXNeutrophils # (Auto)2019-10-25 06:43:00* Test Item Value Reference Range Interpretation Comments Neutrophils # (Auto) (test code = 751-8) 12.1 2.1-6.[address] [facility] [place], TXLymphocytes # (Auto)2019-10-25 06:43:00* Test Item Value Reference Range Interpretation Comments Lymphocytes # (Auto) (test code = 69575-1) 0.8 1.0-3.[address] [facility] [place], TXMonocytes # (Auto)2019-10-25 06:43:00* Test Item Value Reference Range Interpretation Comments Monocytes # (Auto) (test code = 742-7) 0.9 0.2-0.[address] [facility] [place], TXEosinophils # (Auto)2019-10-25 06:43:00* Test Item Value Reference Range Interpretation Comments Eosinophils # (Auto) (test code = 711-2) 0.0 0.0-0.[address] [facility] [place], TXBasophils # (Auto)2019-10-25 06:43:00* Test Item Value Reference Range Interpretation Comments Basophils # (Auto) (test code = 704-7) 0.0 0.0-0.[address] [facility] [place], TXAbsolute Immature Granulocyte (auto 2019-10-25 06:43:00* Test Item Value Reference Range Interpretation Comments Absolute Immature Granulocyte (auto (tk t code = Absolute Immature Granulocyte (auto) 0.11 0-0.[address] [facility] [place], TXCreatine Icnynh6153-56-57 14:18:00* Test Item Value Reference Range Interpretation Comments Creatine Kinase (test code = 2157-6) 49 29-[address] [facility] [place], TXCreatine Kinase FB1032-44-88 14:18:00* Test Item Value Reference Range Interpretation Comments Creatine Kinase MB (test code = 34714-9) 0.80 0-5.[address] [facility] [place], TXTroponin [id number] 14:18:00* Test Item Value Reference Range Interpretation Comments Troponin I (test code = OFX3634) < 0.001 0-0.300 [facility] or plasma creatine kinase measurement (enzymatic activity/volume)2019-10-24 13:14:00* Test Item Value Reference Range Interpretation Comments Creatine Kinase (test code = 2157-6) 49 29-168 [facility]rum or plasma creatine kinase MB measurement (mass/volume)2019-10-24 13:14:00* Test Item Value Reference Range Interpretation Comments Creatine Kinase MB (test code = 99755-4) 0.80 0-5.[address] [facility] [place], TXTroponin I measurement by highly sensitive enzyme cxvifiupumv6033-52-73 13:14:00* Test Item Value Reference Range Interpretation Comments Troponin I (test code = 77433-1) < 0.001 0-0.[address] [facility] [place], TXCHEST SINGLE (PORTABLE)2019-10-23 20:59:00 [facility] [address] [address] Patient Name: RODGER NICHOLS MR #: [id number] : 1950 Age/Sex: 69/F Req #: [id number] Adm Physician: KRISTY RODRIGUEZ MD Ordered by: [employer] Report #: [id number] Location: [facility] Room/Bed: [address] [place] [address] Procedure: [id number] DX/CHEST SINGLE (PORTABLE) Exam [...] MARY on 10/22 COPY TO: [employer] Urine KJN3688-27-67 20:11:00* Test Item Value Reference Range Interpretation Comments Urine WBC (test code = 5821-4) 0-5 0-[address] [facility] [place], TXUrine YBY3589-81-03 20:11:00* Test Item Value Reference Range Interpretation Comments Urine RBC (test code = 29909-0) 0-5 0-[address] [facility] [place], TXUrine Nkgrwvrs6122-18-92 20:11:00* Test Item Value Reference Range Interpretation Comments Urine Bacteria (test code = 30846-1) RARE NONE [facility] [place], TXUrine Epithelial Krvdg2963-56-11 20:11:00 * Test Item Value Reference Range Interpretation Comments Urine Epithelial Cells (test code = 81020-3) FEW NONE [facility] [place], TXB-Type Natriuretic Ztywdwb0310-97-68 19:55:00* Test Item Value Reference Range Interpretation Comments B-Type Natriuretic Peptide (test code = 14170-1) 58.8 0-[address] [facility] [place], TXInfluenza Virus Types A,B Antigen 2019-10-23 19:47:00* Test Item Value Reference Range Interpretation Comments Influenza Virus Types A,B Antigen (test code = 37072-9) NEGATIVE NEGATIVE [facility] [place], TXTotal Pbrgvfkvl1899-49-96 19:40:00* Test Item Value Reference Range Interpretation Comments Total Bilirubin (test code = 1975-2) 0.8 0.2-1.[address] [facility] [place], TXAspartate Amino Transf (AST/SGOT) 2019-10-23 19:40:00* Test Item Value Reference Range Interpretation Comments Aspartate Amino Transf (AST/SGOT) (test code = Aspartate Amino Transf (AST/SGOT)) 12 5-[address] [facility] [place], TXAlanine Aminotransferase (ALT/SGPT) 2019-10-23 19:40:00* Test Item Value Reference Range Interpretation Comments Alanine Aminotransferase (ALT/SGPT) (test code = 1742-6) 8 0-[address] [facility] [place], TXTotal Himsmmg2896-92-89 19:40:00* Test Item Value Reference Range Interpretation Comments Total Protein (test code = 2885-2) 7.3 6.5-8.[address] [facility] [place], TXAlbumin2020-03-08 19:40:00* Test Item Value Reference Range Interpretation Comments Albumin (test code = 1751-7) 3.5 3.5-5.[address] [facility] [place], TXGlobulin2020-03-08 19:40:00* Test Item Value Reference Range Interpretation Comments Globulin (test code = 73151-7) 3.8 2.3-3.[address] [facility] [place], TXAlbumin/Globulin Yfbxa1212-15-63 19:40:00 * Test Item Value Reference Range Interpretation Comments Albumin/Globulin Ratio (test code = 1759-0) 0.9 0.8-2.[address] [facility] [place], TXAlkaline Tthunanbpqa2242-74-63 19:40:00* Test Item Value Reference Range Interpretation Comments Alkaline Phosphatase (test code = 6768-6) 96 40-[address] [facility] [place], TXLactic Acid Pgxxt9300-95-58 19:36:00* Test Item Value Reference Range Interpretation Comments Lactic Acid Level (test code = Lactic Acid Level) 1.4 0.5- 2.[address] [facility] [place], TXUrine Hsdjg2433-20-39 19:34:00* Test Item Value Reference Range Interpretation Comments Urine Color (test code = 5778-6) YELLOW YELLOW [facility] [place], TXUrine Heosobz4557-53-58 19:34:00* Test Item Value Reference Range Interpretation Comments Urine Clarity (test code = 49939-6) CLEAR CLEAR [facility] [place], TXUrine Specific Fvbpzqo7917-73-86 19:34:00 * Test Item Value Reference Range Interpretation Comments Urine Specific [place] (test code = 5811-5) 1.015 1.010-1.[address] [facility] [place], TXUrine bR6514-29-96 19:34:00* Test Item Value Reference Range Interpretation Comments Urine pH (test code = 06806-6) 6 5-[address] [facility] [place], TXUrine Leukocyte Ognwrbtw6685-43-88 19:34:00* Test Item Value Reference Range Interpretation Comments Urine Leukocyte Esterase (test code = 5799-2) NEGATIVE NEGATIVE [facility] [place], TXUrine Ajolytx2613-17-08 19:34:00* Test Item Value Reference Range Interpretation Comments Urine Nitrite (test code = 53770-4) NEGATIVE NEGATIVE [facility] Drlcqmv4580-30-13 19:34:00* Test Item Value Reference Range Interpretation Comments Urine Protein (test code = 5804-0) NEGATIVE NEGATIVE [facility] [place], TXUrine Glucose (UA)2019-10-23 19:34:00* Test Item Value Reference Range Interpretation Comments Urine Glucose (UA) (test code = 2349-9) NEGATIVE NEGATIVE [facility] [place], TXUrine Xtdpurh8886-17-72 19:34:00* Test Item Value Reference Range Interpretation Comments Urine Ketones (test code = 94165-4) NEGATIVE NEGATIVE [facility] Ofcnudvcimyp8262-66-37 19:34:00* Test Item Value Reference Range Interpretation Comments Urine Urobilinogen (test code = 80010-1) 0.2 0.2-[address] [facility] [place], TXUrine Whnolmyjw1464-71-28 19:34:00* Test Item Value Reference Range Interpretation Comments Urine Bilirubin (test code = 1978-6) NEGATIVE NEGATIVE [facility] [place], TXUrine Oyyrz4877-65-82 19:34:00* Test Item Value Reference Range Interpretation Comments Urine Blood (test code = 25848-4) NEGATIVE NEGATIVE [facility] [place], TXProthrombin Cxyl9850-16-73 19:31:00* Test Item Value Reference Range Interpretation Comments Prothrombin Time (test code = 5902-2) 12.3 11.9-14.[address] [facility] [place], TXProthromb Time International Ratio 2019-10-23 19:31:00* Test Item Value Reference Range Interpretation Comments Prothromb Time International Ratio (test code = 6301-6) 0.87 Oral Anticoagulant Therapy INR Values:1. Low Intensity Therapy 1.5 - 2.02 . Moderate Intensity Therapy 2.0 - 3.03. High Intensity Therapy(1) 2.5 - 3. 54. High Intensity Therapy(2) 3.0 - 4.05. Panic Value INR > 5.[address] [facility] [place], TXActivated Partial Thromboplast Time 2019-10-23 19:31:00* Test Item Value Reference Range Interpretation Comments Activated Partial Thromboplast Time (test code = 85642-8) 26.8 23.8-35.[address] [facility] [place], TXProthrombin time (PT) in platelet poor plasma by coagulation afrqe1901-60-29 18:52:00* Test Item Value Reference Range Interpretation Comments Prothrombin Time (test code = 5902-2) 12.3 11.9-14.[address] [facility] [place], TXINR in Platelet poor plasma by Coagulation gzenr0831-25-60 18:52:00* Test Item Value Reference Range Interpretation Comments Prothromb Time International Ratio (test code = 6301-6) 0.87 Oral Anticoagulant Therapy INR Values:1. Low Intensity Therapy 1.5 - 2.02 . Moderate Intensity Therapy 2.0 - 3.03. High Intensity Therapy(1) 2.5 - 3. 54. High Intensity Therapy(2) 3.0 - 4.05. Panic Value INR > 5.[address] [facility] [place], TXActivated partial thromboplastin time (aPTT) in platelet poor plasma by coagulation gofcj8955-62-05 18:52:00* Test Item Value Reference Range Interpretation Comments Activated Partial Thromboplast Time (test code = 93048-8) 26.8 23.8-35.[address] [facility] [place], TXInfluenza virus A and B antigen identification by hwzxwqedqnhkcpoviw8373-36-35 18:52:00* Test Item Value Reference Range Interpretation Comments Influenza Virus Types A,B Antigen (test code = 12679-5) NEGATIVE NEGATIVE [facility] [place], TXFluoroscopic procedure less than one hour xfibyqlm1786-06-73 18:52:00* Test Item Value Reference Range Interpretation Comments Lactic Acid Level (test code = Lactic Acid Level) 1.4 0.5- 2.[address] [facility] [place], TXBNP Bxx-aEtk5072-46-08 18:52:00* Test Item Value Reference Range Interpretation Comments B-Type Natriuretic Peptide (test code = 30186-3) 58.8 0-[address] [facility] [place], TXBlood uoszcnw5724-05-63 18:52:00* Test Item Value Reference Range Interpretation Comments Blood Culture (test code = 86104695) NO GROWTH AFTER 5 DAYS, FINAL REPORT [facility] [place], TXRIBS UNILAT W/DFL4610-46-42 09:06:00 [facility] [address] [place] [address] Patient Name: RODGER NICHOLS MR #: [id number] : 1950 Age/Sex: 69/F Req #: [id number] Adm Physician: Ordered by: KRISTY RODRIGUEZ MD Report #: [id number] Location: [facility] Room/Bed: Procedure: [id number] DX/JESUS MANUELS UNILAT W/CXR Exam Date: 10/05/19 [...] 10/05/19908 COPY TO: KRISTY RODRIGUEZ MD C-Reactive Liqayum0658-66-62 22:02:00* Test Item Value Reference Range Interpretation Comments C-Reactive Protein (test code = 1988-5) 44 0-10 H Performed at: - [facility] [id number] Director: Italo Joyner MD, Phone: [phone] St[facility] [place], TXBedside Rqbsonn6585-76-66 21:08:00* Test Item Value Reference Range Interpretation Comments Bedside Glucose (test code = 93647-8) 93 70-120 Meter ID: [id number] [place], TXIron Flfbj6620-40-59 08:35:00* Test Item Value Reference Range Interpretation Comments Iron Level (test code = 2498-4) 35 50-[address] [facility] [place], TXTotal Iron Binding Qtjtobxw7839-92-11 08:35:00* Test Item Value Reference Range Interpretation Comments Total Iron Binding Capacity (test code = 2500-7) 221 261-[address] [facility] [place], TXPercent Iron Tqnimikoca8038-96-84 08:35:00* Test Item Value Reference Range Interpretation Comments Percent Iron Saturation (test code = 2502-3) 16 15-[address] [facility] [place], TXTransferrin2020-01-21 08:35:00* Test Item Value Reference Range Interpretation Comments Transferrin (test code = 3034-6) 158 180-[address] [facility] [place], TXIron Gpbqu2698-71-48 08:35:00* Test Item Value Reference Range Interpretation Comments Iron Level (test code = 2498-4) 35 50-[address] [facility] [place], TXTotal Iron Binding Urghmtqf8986-02-91 08:35:00* Test Item Value Reference Range Interpretation Comments Total Iron Binding Capacity (test code = 2500-7) 221 261-[address] [facility] [place], TXPercent Iron Jyhtttowbb0981-83-84 08:35:00* Test Item Value Reference Range Interpretation Comments Percent Iron Saturation (test code = 2502-3) 16 15-[address] [facility] [place], TXTransferrin2020-01-21 08:35:00* Test Item Value Reference Range Interpretation Comments Transferrin (test code = 3034-6) 158 180-[address] [facility] [place], TXThyroid Stimulating Hormone (TSH) 2019-09-06 07:19:00* Test Item Value Reference Range Interpretation Comments Thyroid Stimulating Hormone (TSH) (test code = 22416-3) 0.040 0.350-4.[address] [facility] [place], TXThyroid Stimulating Hormone (TSH) 2019-09-06 07:19:00* Test Item Value Reference Range Interpretation Comments Thyroid Stimulating Hormone (TSH) (test code = 06147-5) 0.040 0.350-4.940 [facility] iron measurement (mass/volume)2019-09-06 06:00:00* Test Item Value Reference Range Interpretation Comments Iron Level (test code = 2498-4) 35 50-170 [facility] plasma iron binding capacity measurement (mass/volume)2019-09-06 06:00:00* Test Item Value Reference Range Interpretation Comments Total Iron Binding Capacity (test code = 2500-7) 221 261-4 78 [facility] plasma iron saturation measurement (mass fraction)2019-09-06 06:00:00* Test Item Value Reference Range Interpretation Comments Percent Iron Saturation (test code = 2502-3) 16 15-50 [facility] plasma transferrin measurement (mass/volume)2019-09-06 06:00:00* Test Item Value Reference Range Interpretation Comments Transferrin (test code = 3034-6) 158 180-382 [facility] Centerodium Gvqqi1042-41-41 05:00:00* Test Item Value Reference Range Interpretation Comments Sodium Level (test code = 2951-2) 138 136-[address] [facility] [place], TXPotassium Hdanf6687-88-94 05:00:00* Test Item Value Reference Range Interpretation Comments Potassium Level (test code = 2823-3) 4.3 3.5-5.[address] [facility] [place], TXChloride Zdthz1199-74-43 05:00:00* Test Item Value Reference Range Interpretation Comments Chloride Level (test code = 2075-0) 100 98-[address] [facility] [place], TXCarbon Dioxide Gookw4069-31-19 05:00:00* Test Item Value Reference Range Interpretation Comments Carbon Dioxide Level (test code = 2028-9) 28 22-[address] [facility] [place], TXAnion Rpd4158-00-67 05:00:00* Test Item Value Reference Range Interpretation Comments Anion Gap (test code = 69214-4) 14.3 8-[address] [facility] [place], TXBlood Urea Evkbihbx2577-04-39 05:00:00* Test Item Value Reference Range Interpretation Comments Blood Urea Nitrogen (test code = 3094-0) 25 7-[address] [facility] [place], TXCreatinine2020-01-21 05:00:00* Test Item Value Reference Range Interpretation Comments Creatinine (test code = 2160-0) 1.41 0.57-1.[address] [facility] [place], TXBUN/Creatinine Besij4444-93-56 05:00:00* Test Item Value Reference Range Interpretation Comments BUN/Creatinine Ratio (test code = 3097-3) 18 6-[address] [facility] [place], TXEstimat Glomerular Filtration Rate 2019-09-06 05:00:00* Test Item Value Reference Range Interpretation Comments Estimat Glomerular Filtration Rate (test code = 314252222) 37 >60 L Ranges were taken from the National Kidney Disease Education Program and the [facility] [employer] literature.Reference ranges:60 or greater: Msdqoh75-32 ( for 3 consecutive months): Chronic kidney disease 15 or less: Kidney failureCH[facility] [place], TXGlucose Birtr6401-10-92 05:00:00* Test Item Value Reference Range Interpretation Comments Glucose Level (test code = OVX8479) 137 74-[address] [facility] [place], TXCalcium Sxpxf7094-37-96 05:00:00* Test Item Value Reference Range Interpretation Comments Calcium Level (test code = 30530-2) 8.9 8.4-10.[address] [facility] [place], TXWhite Blood Fmlwc8997-24-81 04:43:00* Test Item Value Reference Range Interpretation Comments White Blood Count (test code = 6690-2) 7.49 4.8-10.[address] [facility] [place], TXRed Blood Ytwoh2659-95-44 04:43:00* Test Item Value Reference Range Interpretation Comments Red Blood Count (test code = 789-8) 3.20 3.6-5.[address] [facility] [place], TXHemoglobin2020-01-21 04:43:00* Test Item Value Reference Range Interpretation Comments Hemoglobin (test code = 62098-8) 9.9 12.0-16.[address] [facility] [place], TXHematocrit2020-01-21 04:43:00* Test Item Value Reference Range Interpretation Comments Hematocrit (test code = 4544-3) 31.4 34.2-44.[address] [facility] [place], TXMean Corpuscular Yloukw4825-33-72 04:43:00* Test Item Value Reference Range Interpretation Comments Mean Corpuscular Volume (test code = 787-2) 98.1 81-[address] [facility] [place], TXMean Corpuscular Uzvyxhwetu4889-44-99 04:43:00* Test Item Value Reference Range Interpretation Comments Mean Corpuscular Hemoglobin (test code = 785-6) 30.9 28-[address] [facility] [place], TXMean Corpuscular Hemoglobin Concent 2019-09-06 04:43:00* Test Item Value Reference Range Interpretation Comments Mean Corpuscular Hemoglobin Concent (test code = 786-4) 31.5 31-[address] [facility] [place], TXRed Cell Distribution Bxnem0902-78-08 04:43:00* Test Item Value Reference Range Interpretation Comments Red Cell Distribution Width (test code = 76653-8) 14.6 11.7 -14.[address] [facility] [place], TXPlatelet Vsiit3293-99-66 04:43:00* Test Item Value Reference Range Interpretation Comments Platelet Count (test code = 777-3) 246 140-[address] [facility] [place], TXNeutrophils (%) (Auto)2019-09-06 04:43:00 * Test Item Value Reference Range Interpretation Comments Neutrophils (%) (Auto) (test code = 05791-7) 61.2 38.7-80.[address] [facility] [place], TXLymphocytes (%) (Auto)2019-09-06 04:43:00 * Test Item Value Reference Range Interpretation Comments Lymphocytes (%) (Auto) (test code = 736-9) 23.4 18.0-39.[address] [facility] [place], TXMonocytes (%) (Auto)2019-09-06 04:43:00* Test Item Value Reference Range Interpretation Comments Monocytes (%) (Auto) (test code = 5905-5) 11.5 4.4-11.[address] [facility] [place], TXEosinophils (%) (Auto)2019-09-06 04:43:00 * Test Item Value Reference Range Interpretation Comments Eosinophils (%) (Auto) (test code = 713-8) 3.2 0.0-6.[address] [facility] [place], TXBasophils (%) (Auto)2019-09-06 04:43:00* Test Item Value Reference Range Interpretation Comments Basophils (%) (Auto) (test code = 706-2) 0.4 0.0-1.[address] [facility] [place], TXIM GRANULOCYTES %2019-09-06 04:43:00* Test Item Value Reference Range Interpretation Comments IM GRANULOCYTES % (test code = IM GRANULOCYTES %) 0.3 0.0- 1.[address] [facility] [place], TXNeutrophils # (Auto)2019-09-06 04:43:00* Test Item Value Reference Range Interpretation Comments Neutrophils # (Auto) (test code = 751-8) 4.6 2.1-6.[address] [facility] [place], TXLymphocytes # (Auto)2019-09-06 04:43:00* Test Item Value Reference Range Interpretation Comments Lymphocytes # (Auto) (test code = 12776-6) 1.8 1.0-3.[address] [facility] [place], TXMonocytes # (Auto)2019-09-06 04:43:00* Test Item Value Reference Range Interpretation Comments Monocytes # (Auto) (test code = 742-7) 0.9 0.2-0.[address] [facility] [place], TXEosinophils # (Auto)2019-09-06 04:43:00* Test Item Value Reference Range Interpretation Comments Eosinophils # (Auto) (test code = 711-2) 0.2 0.0-0.[address] [facility] [place], TXBasophils # (Auto)2019-09-06 04:43:00* Test Item Value Reference Range Interpretation Comments Basophils # (Auto) (test code = 704-7) 0.0 0.0-0.[address] [facility] [place], TXAbsolute Immature Granulocyte (auto 2019-09-06 04:43:00* Test Item Value Reference Range Interpretation Comments Absolute Immature Granulocyte (auto (tk t code = Absolute Immature Granulocyte (auto) 0.02 0-0.1 [facility]rum or plasma thyrotropin measurement by detection limit <= 0.005 miu/l (units/volume)2019-09-06 03:31:00* Test Item Value Reference Range Interpretation Comments Thyroid Stimulating Hormone (TSH) (test code = 52773-5) 0.040 0.350-4.[address] [facility] [place], TXD-Dimer Quantitative (PE/DVT)2019-09-05 22:48:00* Test Item Value Reference Range Interpretation Comments D-Dimer Quantitative (PE/DVT) (test code = 11728-6) 947 0- 400 H As with all in vitro diagnostic tests, the test results should be interpreted by the physician in conjunction with clinical findings and other test results.Test results are reported in NEW D-dimer units(ug/mLFEU).[facility] [place], TXD-Dimer Quantitative (PE/DVT)2019-09-05 22:48:00* Test Item Value Reference Range Interpretation Comments D-Dimer Quantitative (PE/DVT) (test code = 88286-5) 947 0- 400 H As with all in vitro diagnostic tests, the test results should be interpreted by the physician in conjunction with clinical findings and other test results.Test results are reported in NEW D-dimer units(ug/mLFEU).[facility] [place], TXFibrin D-dimer DDU measurement in platelet poor plasma (mass/volume)2019-09-05 21:10:00* Test Item Value Reference Range Interpretation Comments D-Dimer Quantitative (PE/DVT) (test code = 03400-2) 947 0- 400 As with all in vitro diagnostic tests, the test results should be interpreted by the physician in conjunction with clinical findings and other test results.Test results are reported in NEW D-dimer units(ug/mLFEU).[facility]ererum or plasma C reactive protein measurement (mass/volume) 2019-09-05 21:10:00* Test Item Value Reference Range Interpretation Comments C-Reactive Protein (test code = 1988-5) 44 0-10 Performed at: - [facility] [address] [id number] Director: Italo Joyner MD, Phone: [phone] St[facility] [place], TXTriglycerides Utdth3559-58-33 08:40:00* Test Item Value Reference Range Interpretation Comments Triglycerides Level (test code = 2571-8) 96 0-[address] [facility] [place], TXCholesterol Cmqwn6671-22-78 08:40:00* Test Item Value Reference Range Interpretation Comments Cholesterol Level (test code = 2093-3) 148 0-199 Less than 200 mg/dL Low Nwso143 - 239 mg/dL Borderline Wnfv759 m g/dl and greater High Risk [facility] [place], TXLDL Viqowqdaslv3061-36-68 08:40:00* Test Item Value Reference Range Interpretation Comments LDL Cholesterol (test code = 2089-1) 101 60-[address] [facility] [place], TXHDL Ilfbrggrjfj6646-58-70 08:40:00* Test Item Value Reference Range Interpretation Comments HDL Cholesterol (test code = 2085-9) 28 40-[address] [facility] [place], TXCholesterol/HDL Mpkrj7226-27-41 08:40:00 * Test Item Value Reference Range Interpretation Comments Cholesterol/HDL Ratio (test code = 9830-1) 5.3 3.0-3.[address] [facility] [place], TXTriglycerides Jelrs1470-64-43 08:40:00* Test Item Value Reference Range Interpretation Comments Triglycerides Level (test code = 2571-8) 96 0-[address] [facility] [place], TXCholesterol Qvxyb9785-94-29 08:40:00* Test Item Value Reference Range Interpretation Comments Cholesterol Level (test code = 2093-3) 148 0-199 Less than 200 mg/dL Low Qczf586 - 239 mg/dL Borderline Kyuh518 m g/dl and greater High Risk [facility] [place], TXLDL Mwklbbjtngu0745-45-44 08:40:00* Test Item Value Reference Range Interpretation Comments LDL Cholesterol (test code = 2089-1) 101 60-[address] [facility] [place], TXHDL Kzpfpsaftit0756-94-84 08:40:00* Test Item Value Reference Range Interpretation Comments HDL Cholesterol (test code = 2085-9) 28 40-[address] [facility] [place], TXCholesterol/HDL Jbekw9299-66-80 08:40:00 * Test Item Value Reference Range Interpretation Comments Cholesterol/HDL Ratio (test code = 9830-1) 5.3 3.0-3.[address] [facility] [place], TXCreatine Kinase PB2721-26-67 07:08:00* Test Item Value Reference Range Interpretation Comments Creatine Kinase MB (test code = 44646-8) 0.80 0-5.[address] [facility] [place], TXTroponin E2011-63-31 07:08:00* Test Item Value Reference Range Interpretation Comments Troponin I (test code = UFS1037) 0.012 0-0.[address] [facility] [place], TXCreatine Udrdui5881-75-67 06:48:00* Test Item Value Reference Range Interpretation Comments Creatine Kinase (test code = 2157-6) 26 29-[address] [facility] [place], TXTotal Otqbzskjr8187-13-26 06:09:00* Test Item Value Reference Range Interpretation Comments Total Bilirubin (test code = 1975-2) 0.8 0.2-1.[address] [facility] [place], TXAspartate Amino Transf (AST/SGOT) 2019-09-05 06:09:00* Test Item Value Reference Range Interpretation Comments Aspartate Amino Transf (AST/SGOT) (test code = Aspartate Amino Transf (AST/SGOT)) 9 5-[address] [facility] [place], TXAlanine Aminotransferase (ALT/SGPT) 2019-09-05 06:09:00* Test Item Value Reference Range Interpretation Comments Alanine Aminotransferase (ALT/SGPT) (test code = 1742-6) 6 0-[address] [facility] [place], TXTotal Vnpfgcm5472-76-41 06:09:00* Test Item Value Reference Range Interpretation Comments Total Protein (test code = 2885-2) 6.1 6.5-8.[address] [facility] [place], TXAlbumin2020-01-20 06:09:00* Test Item Value Reference Range Interpretation Comments Albumin (test code = 1751-7) 2.8 3.5-5.[address] [facility] [place], TXGlobulin2020-01-20 06:09:00* Test Item Value Reference Range Interpretation Comments Globulin (test code = 09655-7) 3.3 2.3-3.[address] [facility] [place], TXAlbumin/Globulin Ekuvy4133-06-89 06:09:00 * Test Item Value Reference Range Interpretation Comments Albumin/Globulin Ratio (test code = 1759-0) 0.8 0.8-2.[address] [facility] [place], TXAlkaline Uvtcvhmfgqr3606-77-20 06:09:00* Test Item Value Reference Range Interpretation Comments Alkaline Phosphatase (test code = 6768-6) 108 40-150 [facility]rum or plasma triglyceride measurement (mass/volume)2019-09-05 03:50:00* Test Item Value Reference Range Interpretation Comments Triglycerides Level (test code = 2571-8) 96 0-149 [facility]ererum or plasma cholesterol measurement (mass/volume)2019-09-05 03:50:00* Test Item Value Reference Range Interpretation Comments Cholesterol Level (test code = 2093-3) 148 0-199 Less than 200 mg/dL Low Hfyx222 - 239 mg/dL Borderline Drli585 m g/dl and greater High Risk [facility]rum or plasma cholesterol in LDL measurement (mass/volume) 2019-09-05 03:50:00* Test Item Value Reference Range Interpretation Comments LDL Cholesterol (test code = 2089-1) 101 60-130 [facility]ererum or plasma cholesterol in HDL measurement (mass/volume)2019-09-05 03:50:00* Test Item Value Reference Range Interpretation Comments HDL Cholesterol (test code = 2085-9) 28 40-60 [facility]ererum or plasma total cholesterol/cholesterol in HDL mass xzsch8889-27-38 03:50:00* Test Item Value Reference Range Interpretation Comments Cholesterol/HDL Ratio (test code = 9830-1) 5.3 3.0-3.[address] [facility] [place], TXB-Type Natriuretic Cvelqnn0884-77-26 12:21:00* Test Item Value Reference Range Interpretation Comments B-Type Natriuretic Peptide (test code = 66485-0) 62.0 0-[address] [facility] [place], TXMagnesium Pcemb3323-54-59 12:08:00* Test Item Value Reference Range Interpretation Comments Magnesium Level (test code = 95281-9) 1.6 1.3-2.[address] [facility] [place], TXMagnesium Plaer1648-32-17 12:08:00* Test Item Value Reference Range Interpretation Comments Magnesium Level (test code = 28969-9) 1.6 1.3-2.[address] [facility] [place], TXProthrombin Omcz4596-30-74 12:03:00* Test Item Value Reference Range Interpretation Comments Prothrombin Time (test code = 5902-2) 12.2 11.9-14.[address] [facility] [place], TXProthromb Time International Ratio 2019-09-04 12:03:00* Test Item Value Reference Range Interpretation Comments Prothromb Time International Ratio (test code = 6301-6) 0.86 Oral Anticoagulant Therapy INR Values:1. Low Intensity Therapy 1.5 - 2.02 . Moderate Intensity Therapy 2.0 - 3.03. High Intensity Therapy(1) 2.5 - 3. 54. High Intensity Therapy(2) 3.0 - 4.05. Panic Value INR > 5.[address] [facility] [place], TXActivated Partial Thromboplast Time 2019-09-04 12:03:00* Test Item Value Reference Range Interpretation Comments Activated Partial Thromboplast Time (test code = 61356-3) 28.1 23.8-35.[address] [facility] [place], TXCHEST 2 DRXNK5685-81-58 11:52:00 [facility] [address] [address] Patient Name: RODGER NICHOLS MR #: [id number] : 1950 Age/Sex: 69/F Req #: [id number] Adm Physician: Ordered by: JULIANA [employer] Report #: [id number] Location: ER Room/Bed: Procedure: DX/CHEST 2 VIEWS [...] on 09/04 1153 COPY TO: J[employer]IANA [employer] Urine Rnlmk3185-12-93 11:12:00* Test Item Value Reference Range Interpretation Comments Urine Color (test code = 5778-6) YELLOW YELLOW [facility] [place], TXUrine Paahytl0802-02-65 11:12:00* Test Item Value Reference Range Interpretation Comments Urine Clarity (test code = 04298-5) CLEAR CLEAR [facility] [place], TXUrine Specific Zepnksu2182-84-67 11:12:00 * Test Item Value Reference Range Interpretation Comments Urine Specific [place] (test code = 5811-5) 1.015 1.010-1.[address] [facility] [place], TXUrine oP4766-16-98 11:12:00* Test Item Value Reference Range Interpretation Comments Urine pH (test code = 74992-0) 5.5 5-[address] [facility] [place], TXUrine Leukocyte Qgyjhhxu7982-62-80 11:12:00* Test Item Value Reference Range Interpretation Comments Urine Leukocyte Esterase (test code = 5799-2) TRACE NEGATIVE H [facility] [place], TXUrine Gxzjkhg0062-30-80 11:12:00* Test Item Value Reference Range Interpretation Comments Urine Nitrite (test code = 99066-9) NEGATIVE NEGATIVE [facility] [place], TXUrine Jhkcarq1202-68-74 11:12:00* Test Item Value Reference Range Interpretation Comments Urine Protein (test code = 5804-0) NEGATIVE NEGATIVE [facility] [place], TXUrine Glucose (UA)2019-09-04 11:12:00* Test Item Value Reference Range Interpretation Comments Urine Glucose (UA) (test code = 2349-9) NEGATIVE NEGATIVE [facility] [place], TXUrine Rzimrts8617-09-05 11:12:00* Test Item Value Reference Range Interpretation Comments Urine Ketones (test code = 24264-1) NEGATIVE NEGATIVE [facility] [place], TXUrine Serpiutaqnok2583-88-32 11:12:00* Test Item Value Reference Range Interpretation Comments Urine Urobilinogen (test code = 60400-0) 0.2 0.2-[address] [facility] [place], TXUrine Crmzqwusi7839-61-31 11:12:00* Test Item Value Reference Range Interpretation Comments Urine Bilirubin (test code = 1978-6) NEGATIVE NEGATIVE [facility] [place], TXUrine Ntsdd7643-63-12 11:12:00* Test Item Value Reference Range Interpretation Comments Urine Blood (test code = 86224-3) NEGATIVE NEGATIVE [facility] [place], TXUrine ERL3921-39-12 11:12:00* Test Item Value Reference Range Interpretation Comments Urine WBC (test code = 5821-4) 6-10 0-[address] [facility] [place], TXUrine QXZ6047-64-35 11:12:00* Test Item Value Reference Range Interpretation Comments Urine RBC (test code = 64719-2) 0-5 0-[address] [facility] [place], TXUrine Unrrqpcv3173-77-18 11:12:00* Test Item Value Reference Range Interpretation Comments Urine Bacteria (test code = 14984-1) RARE NONE [facility] [place], TXUrine Epithelial Hcqis3037-72-95 11:12:00 * Test Item Value Reference Range Interpretation Comments Urine Epithelial Cells (test code = 10641-9) FEW NONE [facility] [place], TXBedside Crydvev2362-70-64 11:47:00* Test Item Value Reference Range Interpretation Comments Bedside Glucose (test code = 26567-4) 253 70-120 H Meter ID: [id number] [facility] Hospitalodium Level 2019-04-27 06:20:00* Test Item Value Reference Range Interpretation Comments Sodium Level (test code = 2951-2) 136 136-[address] [facility] [place], TXPotassium Ynzsx2777-96-57 06:20:00* Test Item Value Reference Range Interpretation Comments Potassium Level (test code = 2823-3) 4.6 3.5-5.[address] [facility] [place], TXChloride Aboug8113-80-73 06:20:00* Test Item Value Reference Range Interpretation Comments Chloride Level (test code = 2075-0) 96 98-[address] [facility] [place], TXCarbon Dioxide Axkii4482-38-66 06:20:00* Test Item Value Reference Range Interpretation Comments Carbon Dioxide Level (test code = 2028-9) 31 22-[address] [facility] [place], TXAnion Gmq1987-82-35 06:20:00* Test Item Value Reference Range Interpretation Comments Anion Gap (test code = 00543-0) 13.6 8-[address] [facility] [place], TXBlood Urea Mfiytxej7868-36-33 06:20:00* Test Item Value Reference Range Interpretation Comments Blood Urea Nitrogen (test code = 3094-0) 29 7-[address] [facility] [place], TXCreatinine2019-09-11 06:20:00* Test Item Value Reference Range Interpretation Comments Creatinine (test code = 2160-0) 1.39 0.57-1.[address] [facility] [place], TXBUN/Creatinine Jbwxm3201-75-09 06:20:00* Test Item Value Reference Range Interpretation Comments BUN/Creatinine Ratio (test code = 3097-3) 21 6-[address] [facility] [place], TXEstimat Glomerular Filtration Rate 2019-04-27 06:20:00* Test Item Value Reference Range Interpretation Comments Estimat Glomerular Filtration Rate (test code = 401773277) 38 >60 L Ranges were taken from the National Kidney Disease Education Program and the [facility] literature.Reference ranges:60 or greater: Jprepl20-79 ( for 3 consecutive months): Chronic kidney disease 15 or less: Kidney failure[facility] [place], TXGlucose Ngsvw1132-23-41 06:20:00* Test Item Value Reference Range Interpretation Comments Glucose Level (test code = KOI4250) 230 74-[address] [facility] [place], TXCalcium Avdbp3461-39-66 06:20:00* Test Item Value Reference Range Interpretation Comments Calcium Level (test code = 63230-3) 9.3 8.4-10.[address] [facility] [place], TXWhite Blood Ulobu5689-12-43 06:16:00* Test Item Value Reference Range Interpretation Comments White Blood Count (test code = 6690-2) 8.55 4.8-10.[address] [facility] [place], TXRed Blood Unkoh0591-09-81 06:16:00* Test Item Value Reference Range Interpretation Comments Red Blood Count (test code = 789-8) 3.52 3.6-5.[address] [facility] [place], TXHemoglobin2019-09-11 06:16:00* Test Item Value Reference Range Interpretation Comments Hemoglobin (test code = 08201-4) 11.0 12.0-16.[address] [facility] [place], TXHematocrit2019-09-11 06:16:00* Test Item Value Reference Range Interpretation Comments Hematocrit (test code = 4544-3) 34.3 34.2-44.[address] [facility] [place], TXMean Corpuscular Pfequk0522-31-98 06:16:00* Test Item Value Reference Range Interpretation Comments Mean Corpuscular Volume (test code = 787-2) 97.4 81-[address] [facility] [place], TXMean Corpuscular Lnlummfryn5447-49-80 06:16:00* Test Item Value Reference Range Interpretation Comments Mean Corpuscular Hemoglobin (test code = 785-6) 31.3 28-[address] [facility] [place], TXMean Corpuscular Hemoglobin Concent 2019-04-27 06:16:00* Test Item Value Reference Range Interpretation Comments Mean Corpuscular Hemoglobin Concent (test code = 786-4) 32.1 31-[address] [facility] [place], TXRed Cell Distribution Pzvuu9974-04-30 06:16:00* Test Item Value Reference Range Interpretation Comments Red Cell Distribution Width (test code = 32092-7) 13.9 11.7 -14.[address] [facility] [place], TXPlatelet Hpdrs3390-03-13 06:16:00* Test Item Value Reference Range Interpretation Comments Platelet Count (test code = 777-3) 230 140-[address] [facility] [place], TXNeutrophils (%) (Auto)2019-04-27 06:16:00 * Test Item Value Reference Range Interpretation Comments Neutrophils (%) (Auto) (test code = 09909-1) 87.9 38.7-80.[address] [facility] [place], TXLymphocytes (%) (Auto)2019-04-27 06:16:00 * Test Item Value Reference Range Interpretation Comments Lymphocytes (%) (Auto) (test code = 736-9) 8.5 18.0-39.[address] [facility] [place], TXMonocytes (%) (Auto)2019-04-27 06:16:00* Test Item Value Reference Range Interpretation Comments Monocytes (%) (Auto) (test code = 5905-5) 2.7 4.4-11.[address] [facility] [place], TXEosinophils (%) (Auto)2019-04-27 06:16:00 * Test Item Value Reference Range Interpretation Comments Eosinophils (%) (Auto) (test code = 713-8) 0.0 0.0-6.[address] [facility] [place], TXBasophils (%) (Auto)2019-04-27 06:16:00* Test Item Value Reference Range Interpretation Comments Basophils (%) (Auto) (test code = 706-2) 0.1 0.0-1.[address] [facility] [place], TXIM GRANULOCYTES %2019-04-27 06:16:00* Test Item Value Reference Range Interpretation Comments IM GRANULOCYTES % (test code = IM GRANULOCYTES %) 0.8 0.0- 1.[address] [facility] [place], TXNeutrophils # (Auto)2019-04-27 06:16:00* Test Item Value Reference Range Interpretation Comments Neutrophils # (Auto) (test code = 751-8) 7.5 2.1-6.[address] [facility] [place], TXLymphocytes # (Auto)2019-04-27 06:16:00* Test Item Value Reference Range Interpretation Comments Lymphocytes # (Auto) (test code = 55222-9) 0.7 1.0-3.[address] [facility] [place], TXMonocytes # (Auto)2019-04-27 06:16:00* Test Item Value Reference Range Interpretation Comments Monocytes # (Auto) (test code = 742-7) 0.2 0.2-0.[address] [facility] [place], TXEosinophils # (Auto)2019-04-27 06:16:00* Test Item Value Reference Range Interpretation Comments Eosinophils # (Auto) (test code = 711-2) 0.0 0.0-0.[address] [facility] [place], TXBasophils # (Auto)2019-04-27 06:16:00* Test Item Value Reference Range Interpretation Comments Basophils # (Auto) (test code = 704-7) 0.0 0.0-0.[address] [facility] [place], TXAbsolute Immature Granulocyte (auto 2019-04-27 06:16:00* Test Item Value Reference Range Interpretation Comments Absolute Immature Granulocyte (auto (tk t code = Absolute Immature Granulocyte (auto) 0.07 0-0.[address] [facility] [place], TXMagnesium Fjaxb6696-38-80 06:45:00* Test Item Value Reference Range Interpretation Comments Magnesium Level (test code = 34905-4) 1.7 1.3-2.[address] [facility] [place], TXTotal Wesqkwckw9602-06-32 06:45:00* Test Item Value Reference Range Interpretation Comments Total Bilirubin (test code = 1975-2) 0.7 0.2-1.[address] [facility] [place], TXAspartate Amino Transf (AST/SGOT) 2019-04-25 06:45:00* Test Item Value Reference Range Interpretation Comments Aspartate Amino Transf (AST/SGOT) (test code = Aspartate Amino Transf (AST/SGOT)) 12 5-[address] [facility] [place], TXAlanine Aminotransferase (ALT/SGPT) 2019-04-25 06:45:00* Test Item Value Reference Range Interpretation Comments Alanine Aminotransferase (ALT/SGPT) (test code = 1742-6) 12 0-[address] [facility] [place], TXTotal Wbhbjnl3750-14-94 06:45:00* Test Item Value Reference Range Interpretation Comments Total Protein (test code = 2885-2) 5.8 6.5-8.[address] [facility] [place], TXAlbumin2019-09-09 06:45:00* Test Item Value Reference Range Interpretation Comments Albumin (test code = 1751-7) 2.7 3.5-5.[address] [facility] [place], TXGlobulin2019-09-09 06:45:00* Test Item Value Reference Range Interpretation Comments Globulin (test code = 68029-1) 3.1 2.3-3.[address] [facility] [place], TXAlbumin/Globulin Xjusq7896-29-76 06:45:00 * Test Item Value Reference Range Interpretation Comments Albumin/Globulin Ratio (test code = 1759-0) 0.9 0.8-2.[address] [facility] [place], TXAlkaline Dufyopbgomr1322-23-61 06:45:00* Test Item Value Reference Range Interpretation Comments Alkaline Phosphatase (test code = 6768-6) 79 40-[address] [facility] [place], TXLDL Yfpqivmudfd7344-65-85 13:01:00* Test Item Value Reference Range Interpretation Comments LDL Cholesterol (test code = 2089-1) 153 60-[address] [facility] [place], TXHDL Tlqjseunlva3436-56-13 13:01:00* Test Item Value Reference Range Interpretation Comments HDL Cholesterol (test code = 2085-9) 35 40-[address] [facility] [place], TXCholesterol/HDL Sxhag7425-74-38 13:01:00 * Test Item Value Reference Range Interpretation Comments Cholesterol/HDL Ratio (test code = 9830-1) 6.4 3.0-3.[address] [facility] [place], TXTriglycerides Efevd8433-17-07 07:12:00* Test Item Value Reference Range Interpretation Comments Triglycerides Level (test code = 2571-8) 176 0-[address] [facility] [place], TXCholesterol Cpxyp8596-47-58 07:12:00* Test Item Value Reference Range Interpretation Comments Cholesterol Level (test code = 2093-3) 223 0-199 H Less than 200 mg/dL Low Aiqz700 - 239 mg/dL Borderline Moil151 m g/dl and greater High Risk [facility] [place], TXCreatine Ymfefx1622-92-02 14:23:00* Test Item Value Reference Range Interpretation Comments Creatine Kinase (test code = 2157-6) 56 29-[address] [facility] [place], TXCreatine Kinase BS1029-55-02 14:23:00* Test Item Value Reference Range Interpretation Comments Creatine Kinase MB (test code = 59144-5) 0.90 0-5.[address] [facility] [place], TXTroponin M9947-17-31 14:23:00* Test Item Value Reference Range Interpretation Comments Troponin I (test code = XAL4153) 0.048 0-0.[address] [facility] [place], TXThyroid Stimulating Hormone (TSH) 2019-04-23 07:56:00* Test Item Value Reference Range Interpretation Comments Thyroid Stimulating Hormone (TSH) (test code = 22744-9) 10.430 0.350-4.[address] [facility] [place], TXCHEST SINGLE (PORTABLE)2019-04-23 02:07:00 [place] [address] Patient Name: RODGER NICHOLS MR #: [id number] : 1950 Age/Sex: 69/F Req #: [id number] Adm Physician: Ordered by: CADE FORDE MD Report #: [id number] Location: ER Room/Bed: Procedure: [id number] DX/CHEST SINGLE (PORTABLE) Exam Date: 04/23/19 [place] m Time: 0150 REPORT STATUS: Signed EXAMINATION: CHEST SINGLE (PORTABLE) COMPARISON: Chest x-ray 12/22/19 18 INDICATION: Midsternal chest pain ERMD ORDER [id number] 0150 Y DISCUSSION: Frontal view of the [...] Activated Partial Thromboplast Time (test code = 68965-4) 26.0 23.8-35.5 [facility] JPCRULP3108-35-93 16:17:00 [place] [address] Patient Name: RODGER NICHOLS MR #: [id number] : 1950 Age/Sex: 68/F Req #: [id number] Adm Physician: Ordered by: KRISTY RODRIGUEZ MD Report #: [id number] Location: Room/Bed: Procedure: [id number] US/US THYROID Exam Date: 01/14/19 Exam Time: [...] RODRIGUEZ MD DIAG MAMM BILATERAL SHIRA CAD SNUEWIX9706-12-72 08:46:47 - DIAG MAMM BILATERAL SHIRA CAD DIGITALBILATERAL DIGITAL DIAGNOSTIC MAMMOGRAM 3D/2D WITH CAD: 12/02/2018CLINICAL: Previous breast ca. Digital breast tomosynthesis was performed in addition to routine CC and MLO views. Current mammographic images were evaluated by either a [employer] M-Vu or a [employer] CAD (computer aided detection system). Comparison is made to exams dated 11/25/2017 ade mogram, 02/19/2017 mammogram, and 02/09/2017 mammogram - [facility] . The tissue of both [...] m ammogram, and 02/09/2017 mammogram - [facility]. Color flow, jabari l-time, and [...] 12/02/2018 16:25:28Imaging Technologist: Speedy Knapp , [facility] sent: BIRADS 1-2 Combo FU Lette r Mammogram BI-RADS: 0 Indeterminate Ultrasound BI-RADS: 2 BenignBREAST ULTRASOUND QADHUKLWZ8394-88-39 08:46:47 - DIAG MAMM BILATERAL SHIRA CAD DIGITALBILATERAL DIGITAL DIAGNOSTIC MAMMOGRAM 3D/2D WITH CAD: 12/02/2018CLINICAL: Previous breast ca. Digital breast tomosynthesis was performed in addition to routine CC and MLO views. Current mammographic images were evaluated by either a [employer] M-Vu or a [employer] Image[employer]er CAD (computer aided detection system). Comparison is made to exams dated 11/25/2017 mammogram, 02/19/2017 mammogram, and [facility] The tissue of both breasts is [...] m ammogram, and 02/09/2017 [facility]. Color flow, jabari l-time, and Doppler [...] WBC (test code = 5821-4) NONE 0-[address] [facility] [place], TXUrine JWR2215-32-86 14:17:00* Test Item Value Reference Range Interpretation Comments Urine RBC (test code = 36818-6) NONE 0-[address] [facility] [place], TXUrine Kdsnuodw8165-63-36 14:17:00* Test Item Value Reference Range Interpretation Comments Urine Bacteria (test code = 95737-9) RARE NONE [facility] [place], TXUrine Epithelial Lqucq5936-79-38 14:17:00 * Test Item Value Reference Range Interpretation Comments Urine Epithelial Cells (test code = 86151-4) FEW NONE [facility] [place], TXUrine Gyosk9277-34-78 14:05:00* Test Item Value Reference Range Interpretation Comments Urine Color (test code = 5778-6) YELLOW YELLOW [facility] [place], TXUrine Hxowdjv3470-10-09 14:05:00* Test Item Value Reference Range Interpretation Comments Urine Clarity (test code = 85892-6) CLEAR CLEAR [facility] [place], TXUrine Specific Iytmofs2711-33-95 14:05:00 * Test Item Value Reference Range Interpretation Comments Urine Specific [place] (test code = 5811-5) 1.020 1.010-1.[address] [facility] [place], TXUrine bV4790-08-56 14:05:00* Test Item Value Reference Range Interpretation Comments Urine pH (test code = 84518-9) 6 5-[address] [facility] [place], TXUrine Leukocyte Tysvvizs6200-34-68 14:05:00* Test Item Value Reference Range Interpretation Comments Urine Leukocyte Esterase (test code = 5799-2) NEGATIVE NEGATIVE [facility] [place], TXUrine Uykeenx9560-41-70 14:05:00* Test Item Value Reference Range Interpretation Comments Urine Nitrite (test code = 50174-2) NEGATIVE NEGATIVE [facility] [place], TXUrine Hibrzzo3913-59-42 14:05:00* Test Item Value Reference Range Interpretation Comments Urine Protein (test code = 5804-0) NEGATIVE NEGATIVE [facility] [place], TXUrine Glucose (UA)2017-12-21 14:05:00* Test Item Value Reference Range Interpretation Comments Urine Glucose (UA) (test code = 2349-9) NEGATIVE NEGATIVE [facility] Pgwjjcw6652-22-33 14:05:00* Test Item Value Reference Range Interpretation Comments Urine Ketones (test code = 93909-7) NEGATIVE NEGATIVE [facility] Iqkvkbdrcavb0324-33-13 14:05:00* Test Item Value Reference Range Interpretation Comments Urine Urobilinogen (test code = 55597-5) 0.2 0.2-1 [facility] Uymtgaytx2770-46-14 14:05:00* Test Item Value Reference Range Interpretation Comments Urine Bilirubin (test code = 1978-6) NEGATIVE NEGATIVE [facility] Hdxkn4767-45-68 14:05:00* Test Item Value Reference Range Interpretation Comments Urine Blood (test code = 36494-7) [facility] Kkvhm6673-40-92 12:26:00* Test Item Value Reference Range Interpretation Comments Sodium Level (test code = 2951-2) 143 136-[address] [facility] [place], TXPotassium Sufne2232-49-41 12:26:00* Test Item Value Reference Range Interpretation Comments Potassium Level (test code = 2823-3) 3.7 3.5-5.[address] [facility] [place], TXChloride Usgnw4306-74-92 12:26:00* Test Item Value Reference Range Interpretation Comments Chloride Level (test code = 2075-0) 106 98-[address] [facility] [place], TXCarbon Dioxide Yvagw9949-75-97 12:26:00* Test Item Value Reference Range Interpretation Comments Carbon Dioxide Level (test code = 2028-9) 29 22-[address] [facility] [place], TXAnion Inm0322-41-25 12:26:00* Test Item Value Reference Range Interpretation Comments Anion Gap (test code = 53571-4) 11.7 8-[address] [facility] [place], TXBlood Urea Jvusfdcx6052-96-65 12:26:00* Test Item Value Reference Range Interpretation Comments Blood Urea Nitrogen (test code = 3094-0) 24 7-[address] [facility] [place], TXCreatinine2018-05-07 12:26:00* Test Item Value Reference Range Interpretation Comments Creatinine (test code = 2160-0) 1.08 0.57-1.[address] [facility] [place], TXBUN/Creatinine Snlpe1674-78-13 12:26:00* Test Item Value Reference Range Interpretation Comments BUN/Creatinine Ratio (test code = 3097-3) 22 6-[address] [facility] [place], TXEstimat Glomerular Filtration Rate 2017-12-21 12:26:00* Test Item Value Reference Range Interpretation Comments Estimat Glomerular Filtration Rate (test code = 14714-1) 51 >60 L Ranges were taken from the National Kidney Disease Education Program and the [facility] literature.Reference ranges:60 or greater: Iqramu05-92 ( for 3 consecutive months): Chronic kidney disease 15 or less: Kid[facility] failure[facility] [place], TXGlucose Iyfrj2844-88-66 12:26:00* Test Item Value Reference Range Interpretation Comments Glucose Level (test code = PSZ8434) 108 74-[address] [facility] [place], TXCalcium Fmhgb8750-86-05 12:26:00* Test Item Value Reference Range Interpretation Comments Calcium Level (test code = 81537-2) 9.7 8.4-10.[address] [facility] [place], TXTotal Eszdeaqyu0857-17-48 12:26:00* Test Item Value Reference Range Interpretation Comments Total Bilirubin (test code = 1975-2) 0.5 0.2-1.[address] [facility] [place], TXAspartate Amino Transf (AST/SGOT) 2017-12-21 12:26:00* Test Item Value Reference Range Interpretation Comments Aspartate Amino Transf (AST/SGOT) (test code = Aspartate Amino Transf (AST/SGOT)) 12 5-[address] [facility] [place], TXAlanine Aminotransferase (ALT/SGPT) 2017-12-21 12:26:00* Test Item Value Reference Range Interpretation Comments Alanine Aminotransferase (ALT/SGPT) (test code = 1742-6) 11 0-[address] [facility] [place], TXTotal Itbbmys5403-36-28 12:26:00* Test Item Value Reference Range Interpretation Comments Total Protein (test code = 2885-2) 6.8 6.5-8.[address] [facility] [place], TXAlbumin2018-05-07 12:26:00* Test Item Value Reference Range Interpretation Comments Albumin (test code = 1751-7) 3.1 3.5-5.[address] [facility] [place], TXGlobulin2018-05-07 12:26:00* Test Item Value Reference Range Interpretation Comments Globulin (test code = 21741-5) 3.7 2.3-3.[address] [facility] [place], TXAlbumin/Globulin Jjajr4746-71-14 12:26:00 * Test Item Value Reference Range Interpretation Comments Albumin/Globulin Ratio (test code = 1759-0) 0.8 0.8-2.[address] [facility] [place], TXAlkaline Raqgzxbgxku1057-29-76 12:26:00* Test Item Value Reference Range Interpretation Comments Alkaline Phosphatase (test code = 6768-6) 79 40-[address] [facility] [place], TXWhite Blood Vsaeu4653-70-71 12:10:00* Test Item Value Reference Range Interpretation Comments White Blood Count (test code = 6690-2) 6.10 4.8-10.[address] [facility] [place], TXRed Blood Pvszc9607-85-95 12:10:00* Test Item Value Reference Range Interpretation Comments Red Blood Count (test code = 789-8) 4.10 3.6-5.[address] [facility] [place], TXHemoglobin2018-05-07 12:10:00* Test Item Value Reference Range Interpretation Comments Hemoglobin (test code = 29891-8) 13.0 12.0-16.[address] [facility] [place], TXHematocrit2018-05-07 12:10:00* Test Item Value Reference Range Interpretation Comments Hematocrit (test code = 4544-3) 39.3 34.2-44.[address] [facility] [place], TXMean Corpuscular Bkmlik9510-43-62 12:10:00* Test Item Value Reference Range Interpretation Comments Mean Corpuscular Volume (test code = 787-2) 95.9 81-[address] [facility] [place], TXMean Corpuscular Tpnmrwoyfc8535-19-04 12:10:00* Test Item Value Reference Range Interpretation Comments Mean Corpuscular Hemoglobin (test code = 785-6) 31.7 28-[address] [facility] [place], [place]Mean Corpuscular Hemoglobin Concent 2017-12-21 12:10:00* Test Item Value Reference Range Interpretation Comments Mean Corpuscular Hemoglobin Concent (test code = 786-4) 33.1 31-[address] [facility] [place], [place]Red Cell Distribution Xqtqe4794-48-73 12:10:00* Test Item Value Reference Range Interpretation Comments Red Cell Distribution Width (test code = 49080-9) 15.5 11.7 -14.[address] [facility] [place], TXPlatelet Nagzp1664-28-92 12:10:00* Test Item Value Reference Range Interpretation Comments Platelet Count (test code = 777-3) 221 140-[address] [facility] [place], [place]Neutrophils (%) (Auto)2017-12-21 12:10:00 * Test Item Value Reference Range Interpretation Comments Neutrophils (%) (Auto) (test code = 66738-1) 61.1 38.7-80.[address] [facility] [place], TXLymphocytes (%) (Auto)2017-12-21 12:10:00 * Test Item Value Reference Range Interpretation Comments Lymphocytes (%) (Auto) (test code = 736-9) 23.8 18.0-39.[address] [facility] [place], TXMonocytes (%) (Auto)2017-12-21 12:10:00* Test Item Value Reference Range Interpretation Comments Monocytes (%) (Auto) (test code = 5905-5) 12.8 4.4-11.[address] [facility] [place], TXEosinophils (%) (Auto)2017-12-21 12:10:00 * Test Item Value Reference Range Interpretation Comments Eosinophils (%) (Auto) (test code = 713-8) 1.3 0.0-6.[address] [facility] [place], [place]Basophils (%) (Auto)2017-12-21 12:10:00* Test Item Value Reference Range Interpretation Comments Basophils (%) (Auto) (test code = 706-2) 0.3 0.0-1.[address] [facility] [place], TXIM GRANULOCYTES %2017-12-21 12:10:00* Test Item Value Reference Range Interpretation Comments IM GRANULOCYTES % (test code = IM GRANULOCYTES %) 0.7 0.0- 1.[address] [facility] [place], TXNeutrophils # (Auto)2017-12-21 12:10:00* Test Item Value Reference Range Interpretation Comments Neutrophils # (Auto) (test code = 751-8) 3.7 2.1-6.[address] [facility] [place], TXLymphocytes # (Auto)2017-12-21 12:10:00* Test Item Value Reference Range Interpretation Comments Lymphocytes # (Auto) (test code = 33742-1) 1.5 1.0-3.[address] [facility] [place], TXMonocytes # (Auto)2017-12-21 12:10:00* Test Item Value Reference Range Interpretation Comments Monocytes # (Auto) (test code = 742-7) 0.8 0.2-0.[address] [facility] [place], TXEosinophils # (Auto)2017-12-21 12:10:00* Test Item Value Reference Range Interpretation Comments Eosinophils # (Auto) (test code = 711-2) 0.1 0.0-0.[address] [facility] [place], TXBasophils # (Auto)2017-12-21 12:10:00* Test Item Value Reference Range Interpretation Comments Basophils # (Auto) (test code = 704-7) 0.0 0.0-0.[address] [facility] [place], TXAbsolute Immature Granulocyte (auto 2017-12-21 12:10:00* Test Item Value Reference Range Interpretation Comments Absolute Immature Granulocyte (auto (tk t code = Absolute Immature Granulocyte (auto) 0.04 0-0.[address] [facility] [place], TXBedside Taslfcs1244-54-36 11:44:00* Test Item Value Reference Range Interpretation Comments Bedside Glucose (test code = 09233-5) 148 70-120 H Meter ID: [id number] [facility] [place]Bed[facility] Glucose 2017-12-04 11:44:00* Test Item Value Reference Range Interpretation Comments Bedside Glucose (test code = 03090-4) 148 70-120 H Meter ID: [id number] [facility] DallasCreatine Kinase MB 2017-12-02 16:35:00* Test Item Value Reference Range Interpretation Comments Creatine Kinase MB (test code = 02975-6) 0.90 0-5.[address] [facility] [place], TXTroponin [id number] 16:35:00* Test Item Value Reference Range Interpretation Comments Troponin I (test code = IWQ3111) 0.001 0-0.[address] [facility] [place], TXCreatine Kinase [id number] 16:35:00* Test Item Value Reference Range Interpretation Comments Creatine Kinase MB (test code = 96987-0) 0.90 0-5.[address] [facility] [place], TXTroponin E2666-22-19 16:35:00* Test Item Value Reference Range Interpretation Comments Troponin I (test code = TLD2215) 0.001 0-0.[address] [facility] [place], TXCreatine Vvyzfu2301-28-77 16:18:00* Test Item Value Reference Range Interpretation Comments Creatine Kinase (test code = 2157-6) 55 29-[address] [facility] [place], TXCreatine Onwkih7182-28-95 16:18:00* Test Item Value Reference Range Interpretation Comments Creatine Kinase (test code = 2157-6) 55 29-168 [facility] Htblv7112-[facility]-27 06:36:00* Test Item Value Reference Range Interpretation Comments Sodium Level (test code = 2951-2) 142 136-[address] [facility] [place], [place]Potassium Ilzgv9551-19-22 06:36:00* Test Item Value Reference Range Interpretation Comments Potassium Level (test code = 2823-3) 3.7 3.5-5.[address] [facility] [place], TXChloride Amkdd7873-68-62 06:36:00* Test Item Value Reference Range Interpretation Comments Chloride Level (test code = 2075-0) 104 98-[address] [facility] [place], TXCarbon Dioxide Qblko5621-50-56 06:36:00* Test Item Value Reference Range Interpretation Comments Carbon Dioxide Level (test code = 2028-9) 28 22-[address] [facility] [place], TXAnion Qjj9768-94-29 06:36:00* Test Item Value Reference Range Interpretation Comments Anion Gap (test code = 43357-6) 13.7 8-[address] [facility] [place], TXBlood Urea Gcslwjbw1532-15-29 06:36:00* Test Item Value Reference Range Interpretation Comments Blood Urea Nitrogen (test code = 3094-0) 15 7-[address] [facility] [place], TXCreatinine2018-04-18 06:36:00* Test Item Value Reference Range Interpretation Comments Creatinine (test code = 2160-0) 0.80 0.57-1.[address] [facility] [place], TXBUN/Creatinine Zdoan1172-98-09 06:36:00* Test Item Value Reference Range Interpretation Comments BUN/Creatinine Ratio (test code = 3097-3) 19 6-[address] [facility] [place], TXEstimat Glomerular Filtration Rate 2017-12-02 06:36:00* Test Item Value Reference Range Interpretation Comments Estimat Glomerular Filtration Rate (test code = 93783-0) 60- >60 Ranges were taken from the National Kidney Disease Education Program and the [facility] literature.Reference ranges:60 or greater: [id number] ( for 3 consecutive months): Chronic kidney disease 15 or less: Kidney failure[facility] [place], [place]Glucose Lxfbh7197-77-86 06:36:00* Test Item Value Reference Range Interpretation Comments Glucose Level (test code = LUZ1251) 82 74-[address] [facility] [place], TXCalcium Ronbi1092-08-17 06:36:00* Test Item Value Reference Range Interpretation Comments Calcium Level (test code = 48665-3) 9.3 8.4-10.[address] [facility] [place], TXWhite Blood Iubyb9656-92-55 06:16:00* Test Item Value Reference Range Interpretation Comments White Blood Count (test code = 6690-2) 5.11 4.8-10.[address] [facility] [place], TXRed Blood Wsubz1895-62-58 06:16:00* Test Item Value Reference Range Interpretation Comments Red Blood Count (test code = 789-8) 3.86 3.6-5.[address] [facility] [place], TXHemoglobin2018-04-18 06:16:00* Test Item Value Reference Range Interpretation Comments Hemoglobin (test code = 40993-5) 12.1 12.0-16.[address] [facility] [place], TXHematocrit2018-04-18 06:16:00* Test Item Value Reference Range Interpretation Comments Hematocrit (test code = 4544-3) 36.2 34.2-44.[address] [facility] [place], TXMean Corpuscular Zntztz2022-48-54 06:16:00* Test Item Value Reference Range Interpretation Comments Mean Corpuscular Volume (test code = 787-2) 93.8 81-[address] [facility] [place], TXMean Corpuscular Zqdkvhpesy7938-32-42 06:16:00* Test Item Value Reference Range Interpretation Comments Mean Corpuscular Hemoglobin (test code = 785-6) 31.3 28-32 [facility] Concent 2017-12-02 06:16:00* Test Item Value Reference Range Interpretation Comments Mean Corpuscular Hemoglobin Concent (test code = 786-4) 33.4 31-[address] [facility] [place], TXRed Cell Distribution Jdrok2752-87-47 06:16:00* Test Item Value Reference Range Interpretation Comments Red Cell Distribution Width (test code = 43676-7) 14.9 11.7 -14.[address] [facility] [place], TXPlatelet Jlknq8903-53-14 06:16:00* Test Item Value Reference Range Interpretation Comments Platelet Count (test code = 777-3) 211 140-[address] [facility] [place], TXNeutrophils (%) (Auto)2017-12-02 06:16:00 * Test Item Value Reference Range Interpretation Comments Neutrophils (%) (Auto) (test code = 00018-0) 63.0 38.7-80.[address] [facility] [place], TXLymphocytes (%) (Auto)2017-12-02 06:16:00 * Test Item Value Reference Range Interpretation Comments Lymphocytes (%) (Auto) (test code = 736-9) 22.1 18.0-39.[address] [facility] [place], TXMonocytes (%) (Auto)2017-12-02 06:16:00* Test Item Value Reference Range Interpretation Comments Monocytes (%) (Auto) (test code = 5905-5) 12.1 4.4-11.[address] [facility] [place], TXEosinophils (%) (Auto)2017-12-02 06:16:00 * Test Item Value Reference Range Interpretation Comments Eosinophils (%) (Auto) (test code = 713-8) 2.0 0.0-6.[address] [facility] [place], TXBasophils (%) (Auto)2017-12-02 06:16:00* Test Item Value Reference Range Interpretation Comments Basophils (%) (Auto) (test code = 706-2) 0.4 0.0-1.[address] [facility] [place], TXIM GRANULOCYTES %2017-12-02 06:16:00* Test Item Value Reference Range Interpretation Comments IM GRANULOCYTES % (test code = IM GRANULOCYTES %) 0.4 0.0- 1.[address] [facility] [place], TXNeutrophils # (Auto)2017-12-02 06:16:00* Test Item Value Reference Range Interpretation Comments Neutrophils # (Auto) (test code = 751-8) 3.2 2.1-6.[address] [facility] [place], TXLymphocytes # (Auto)2017-12-02 06:16:00* Test Item Value Reference Range Interpretation Comments Lymphocytes # (Auto) (test code = 11701-5) 1.1 1.0-3.[address] [facility] [place], TXMonocytes # (Auto)2017-12-02 06:16:00* Test Item Value Reference Range Interpretation Comments Monocytes # (Auto) (test code = 742-7) 0.6 0.2-0.[address] [facility] [place], TXEosinophils # (Auto)2017-12-02 06:16:00* Test Item Value Reference Range Interpretation Comments Eosinophils # (Auto) (test code = 711-2) 0.1 0.0-0.[address] [facility] [place], TXBasophils # (Auto)2017-12-02 06:16:00* Test Item Value Reference Range Interpretation Comments Basophils # (Auto) (test code = 704-7) 0.0 0.0-0.[address] [facility] [place], TXAbsolute Immature Granulocyte (auto 2017-12-02 06:16:00* Test Item Value Reference Range Interpretation Comments Absolute Immature Granulocyte (auto (tk t code = Absolute Immature Granulocyte (auto) 0.02 0-0.1 [facility] Ccneudniq4969-97-55 07:09:00* Test Item Value Reference Range Interpretation Comments Total Bilirubin (test code = 1975-2) 1.1 0.2-1.[address] [facility] [place], TXAspartate Amino Transf (AST/SGOT) 2017-12-01 07:09:00* Test Item Value Reference Range Interpretation Comments Aspartate Amino Transf (AST/SGOT) (test code = Aspartate Amino Transf (AST/SGOT)) 19 5-[address] [facility] [place], TXAlanine Aminotransferase (ALT/SGPT) 2017-12-01 07:09:00* Test Item Value Reference Range Interpretation Comments Alanine Aminotransferase (ALT/SGPT) (test code = 1742-6) 19 0-[address] [facility] [place], TXTotal Rftnjxb7561-38-00 07:09:00* Test Item Value Reference Range Interpretation Comments Total Protein (test code = 2885-2) 6.4 6.5-8.[address] [facility] [place], TXAlbumin2018-04-17 07:09:00* Test Item Value Reference Range Interpretation Comments Albumin (test code = 1751-7) 3.0 3.5-5.[address] [facility] [place], TXGlobulin2018-04-17 07:09:00* Test Item Value Reference Range Interpretation Comments Globulin (test code = 25355-2) 3.4 2.3-3.[address] [facility] [place], TXAlbumin/Globulin Fvnpq3388-12-08 07:09:00 * Test Item Value Reference Range Interpretation Comments Albumin/Globulin Ratio (test code = 1759-0) 0.9 0.8-2.[address] [facility] [place], TXAlkaline Ujseizdxqtk9970-12-37 07:09:00* Test Item Value Reference Range Interpretation Comments Alkaline Phosphatase (test code = 6768-6) 77 40-[address] [facility] [place], TXTriglycerides Xvqyu2763-46-45 07:09:00* Test Item Value Reference Range Interpretation Comments Triglycerides Level (test code = 2571-8) 74 0-[address] [facility] [place], TXCholesterol Ofsbz7530-34-72 07:09:00* Test Item Value Reference Range Interpretation Comments Cholesterol Level (test code = 2093-3) 153 0-199 Less than 200 mg/dL Low Ewcy141 - 239 mg/dL Borderline Xafp334 m g/dl and greater High Risk [facility] [place], TXLDL Iwnwljxnpsk0065-71-33 07:09:00* Test Item Value Reference Range Interpretation Comments LDL Cholesterol (test code = 2089-1) 84 60-[address] [facility] [place], TXHDL Effywuhrpfe8830-18-03 07:09:00* Test Item Value Reference Range Interpretation Comments HDL Cholesterol (test code = 2085-9) 54 40-[address] [facility] [place], TXCholesterol/HDL Dinpw8678-02-78 07:09:00 * Test Item Value Reference Range Interpretation Comments Cholesterol/HDL Ratio (test code = 9830-1) 2.8 3.0-3.[address] [facility] [place], TXTriglycerides Wyzdw1561-14-21 07:09:00* Test Item Value Reference Range Interpretation Comments Triglycerides Level (test code = 2571-8) 74 0-[address] [facility] [place], TXCholesterol Taybj8846-40-40 07:09:00* Test Item Value Reference Range Interpretation Comments Cholesterol Level (test code = 2093-3) 153 0-199 Less than 200 mg/dL Low Ybgi619 - 239 mg/dL Borderline Vevu993 m g/dl and greater High Risk [facility] [place], TXLDL Wuwngdxfppz8097-92-00 07:09:00* Test Item Value Reference Range Interpretation Comments LDL Cholesterol (test code = 2089-1) 84 60-[address] [facility] [place], TXHDL Iejvwzparbl5176-35-55 07:09:00* Test Item Value Reference Range Interpretation Comments HDL Cholesterol (test code = 2085-9) 54 40-[address] [facility] [place], TXCholesterol/HDL Svzqw9713-96-31 07:09:00 * Test Item Value Reference Range Interpretation Comments Cholesterol/HDL Ratio (test code = 9830-1) 2.8 3.0-3.[address] [facility] [place], TXB-Type Natriuretic Jyhodpt3025-09-65 20:10:00* Test Item Value Reference Range Interpretation Comments B-Type Natriuretic Peptide (test code = 45987-8) 85.2 0-[address] [facility] [place], TXB-Type Natriuretic Tlplzzc3827-69-67 20:10:00* Test Item Value Reference Range Interpretation Comments B-Type Natriuretic Peptide (test code = 06159-0) 85.2 0-[address] [facility] [place], TXProthrombin Orpc7403-15-02 19:55:00* Test Item Value Reference Range Interpretation Comments Prothrombin Time (test code = 5902-2) 12.1 11.9-14.[address] [facility] [place], TXProthromb Time International Ratio 2017-11-30 19:55:00* Test Item Value Reference Range Interpretation Comments Prothromb Time International Ratio (test code = 6301-6) 0.97 Oral Anticoagulant Therapy INR Values:1. Low Intensity Therapy 1.5 - 2.02 . Moderate Intensity Therapy 2.0 - 3.03. High Intensity Therapy(1) 2.5 - 3. 54. High Intensity Therapy(2) 3.0 - 4.05. Panic Value INR > 5.[address] [facility] [place], TXActivated Partial Thromboplast Time 2017-11-30 19:55:00* Test Item Value Reference Range Interpretation Comments Activated Partial Thromboplast Time (test code = 96659-8) 26.8 23.8-35.[address] [facility] [place], TXProthrombin Grgw8950-74-71 19:55:00* Test Item Value Reference Range Interpretation Comments Prothrombin Time (test code = 5902-2) 12.1 11.9-14.[address] [facility] [place], TXProthromb Time International Ratio 2017-11-30 19:55:00* Test Item Value Reference Range Interpretation Comments Prothromb Time International Ratio (test code = 6301-6) 0.97 Oral Anticoagulant Therapy INR Values:1. Low Intensity Therapy 1.5 - 2.02 . Moderate Intensity Therapy 2.0 - 3.03. High Intensity Therapy(1) 2.5 - 3. 54. High Intensity Therapy(2) 3.0 - 4.05. Panic Value INR > 5.[address] [facility] [place], TXActivated Partial Thromboplast Time 2017-11-30 19:55:00* Test Item Value Reference Range Interpretation Comments Activated Partial Thromboplast Time (test code = 85053-0) 26.8 23.8-35.[address] [facility] [place], TXErythrocyte Sedimentation Noim8879-66-69 23:17:00* Test Item Value Reference Range Interpretation Comments Erythrocyte Sedimentation Rate (test code = 4537-7) 48 0- [address] [facility] [place], TXErythrocyte Sedimentation Kivh0168-53-53 23:17:00* Test Item Value Reference Range Interpretation Comments Erythrocyte Sedimentation Rate (test code = 4537-7) 48 0- [address] [facility] [place], TXErythrocyte Sedimentation Sohf0242-84-73 23:17:00* Test Item Value Reference Range Interpretation Comments Erythrocyte Sedimentation Rate (test code = 4537-7) 48 0- [address] [facility] [place], TXCreatine Kinase [id number] 22:53:00* Test Item Value Reference Range Interpretation Comments Creatine Kinase MB (test code = 44566-1) 1.50 0-5.[address] [facility] [place], TXTroponin [id number] 22:53:00* Test Item Value Reference Range Interpretation Comments Troponin I (test code = DZX7537) 0.006 0-0.[address] [facility] [place], TXProthrombin Mzkd5756-29-31 22:47:00* Test Item Value Reference Range Interpretation Comments Prothrombin Time (test code = 5902-2) 12.6 11.9-14.[address] [facility] [place], TXProthromb Time International Ratio 2017-10-29 22:47:00* Test Item Value Reference Range Interpretation Comments Prothromb Time International Ratio (test code = 6301-6) 1.02 Oral Anticoagulant Therapy INR Values:1. Low Intensity Therapy 1.5 - 2.02 . Moderate Intensity Therapy 2.0 - 3.03. High Intensity Therapy(1) 2.5 - 3. 54. High Intensity Therapy(2) 3.0 - 4.05. Panic Value INR > 5.[address] [facility] [place], TXActivated Partial Thromboplast Time 2017-10-29 22:47:00* Test Item Value Reference Range Interpretation Comments Activated Partial Thromboplast Time (test code = 30875-7) 63.3 23.8-35.5 [facility] Vyoxn6252-54-19 22:47:00* Test Item Value Reference Range Interpretation Comments Sodium Level (test code = 2951-2) 140 136-[address] [facility] [place], TXPotassium Fsrhb8522-09-16 22:47:00* Test Item Value Reference Range Interpretation Comments Potassium Level (test code = 2823-3) 4.1 3.5-5.[address] [facility] [place], TXChloride Xehee2056-03-87 22:47:00* Test Item Value Reference Range Interpretation Comments Chloride Level (test code = 2075-0) 103 98-[address] [facility] [place], TXCarbon Dioxide Ervxy9026-11-39 22:47:00* Test Item Value Reference Range Interpretation Comments Carbon Dioxide Level (test code = 2028-9) 27 22-[address] [facility] [place], TXAnion Flb9813-21-68 22:47:00* Test Item Value Reference Range Interpretation Comments Anion Gap (test code = 99721-2) 14.1 8-[address] [facility] [place], TXBlood Urea Zqkfilcv1696-56-35 22:47:00* Test Item Value Reference Range Interpretation Comments Blood Urea Nitrogen (test code = 3094-0) 35 7-[address] [facility] [place], TXCreatinine2018-03-15 22:47:00* Test Item Value Reference Range Interpretation Comments Creatinine (test code = 2160-0) 0.91 0.57-1.[address] [facility] [place], TXBUN/Creatinine Ofewo7892-81-00 22:47:00* Test Item Value Reference Range Interpretation Comments BUN/Creatinine Ratio (test code = 3097-3) 38 6-[address] [facility] [place], TXEstimat Glomerular Filtration Rate 2017-10-29 22:47:00* Test Item Value Reference Range Interpretation Comments Estimat Glomerular Filtration Rate (test code = 71309-7) 60- >60 Ranges were taken from the National Kidney Disease Education Program and the [facility] Kidney Foundation literature.Reference ranges:60 or greater: Aymqxv42-28 ( for 3 consecutive months): Chronic kidney disease 15 or less: Kid[facility] failure[facility] [place], TXGlucose Xpxbr5682-49-16 22:47:00* Test Item Value Reference Range Interpretation Comments Glucose Level (test code = VGB8903) 108 74-[address] [facility] [place], TXCalcium Injwv5325-49-35 22:47:00* Test Item Value Reference Range Interpretation Comments Calcium Level (test code = 81903-2) 9.4 8.4-10.[address] [facility] [place], TXMagnesium Ipuld7304-04-72 22:47:00* Test Item Value Reference Range Interpretation Comments Magnesium Level (test code = 63891-8) 1.9 1.3-2.[address] [facility] [place], TXTotal Izmmflqlc2929-28-42 22:47:00* Test Item Value Reference Range Interpretation Comments Total Bilirubin (test code = 1975-2) 0.9 0.2-1.[address] [facility] [place], TXAspartate Amino Transf (AST/SGOT) 2017-10-29 22:47:00* Test Item Value Reference Range Interpretation Comments Aspartate Amino Transf (AST/SGOT) (test code = Aspartate Amino Transf (AST/SGOT)) 21 5-[address] [facility] [place], TXAlanine Aminotransferase (ALT/SGPT) 2017-10-29 22:47:00* Test Item Value Reference Range Interpretation Comments Alanine Aminotransferase (ALT/SGPT) (test code = 1742-6) 17 0-[address] [facility] [place], TXTotal Vwbhiij0095-21-62 22:47:00* Test Item Value Reference Range Interpretation Comments Total Protein (test code = 2885-2) 7.9 6.5-8.[address] [facility] [place], TXAlbumin2018-03-15 22:47:00* Test Item Value Reference Range Interpretation Comments Albumin (test code = 1751-7) 4.0 3.5-5.[address] [facility] [place], TXGlobulin2018-03-15 22:47:00* Test Item Value Reference Range Interpretation Comments Globulin (test code = 36285-8) 3.9 2.3-3.[address] [facility] [place], TXAlbumin/Globulin Zpmwd1398-40-79 22:47:00 * Test Item Value Reference Range Interpretation Comments Albumin/Globulin Ratio (test code = 1759-0) 1.0 0.8-2.[address] [facility] [place], TXAlkaline Evvihzrfrhn2175-68-59 22:47:00* Test Item Value Reference Range Interpretation Comments Alkaline Phosphatase (test code = 6768-6) 85 40-[address] [facility] [place], TXCreatine Ujxydk1494-56-48 22:47:00* Test Item Value Reference Range Interpretation Comments Creatine Kinase (test code = 2157-6) 104 29-[address] [facility] [place], TXMagnesium Scjzw7030-53-53 22:47:00* Test Item Value Reference Range Interpretation Comments Magnesium Level (test code = 61392-9) 1.9 1.3-2.[address] [facility] [place], TXMagnesium Bwwgu1142-12-11 22:47:00* Test Item Value Reference Range Interpretation Comments Magnesium Level (test code = 05204-5) 1.9 1.3-2.[address] [facility] [place], [place]White Blood Tzsky2007-32-56 22:34:00* Test Item Value Reference Range Interpretation Comments White Blood Count (test code = 6690-2) 7.18 4.8-10.[address] [facility] [place], [place]Red Blood Cmjbu9229-52-63 22:34:00* Test Item Value Reference Range Interpretation Comments Red Blood Count (test code = 789-8) 4.25 3.6-5.[address] [facility] [place], TXHemoglobin2018-03-15 22:34:00* Test Item Value Reference Range Interpretation Comments Hemoglobin (test code = 82394-6) 13.4 12.0-16.[address] [facility] [place], TXHematocrit2018-03-15 22:34:00* Test Item Value Reference Range Interpretation Comments Hematocrit (test code = 4544-3) 39.8 34.2-44.[address] [facility] [place], TXMean Corpuscular Xoopsx3760-55-96 22:34:00* Test Item Value Reference Range Interpretation Comments Mean Corpuscular Volume (test code = 787-2) 93.6 81-[address] [facility] [place], [place]Mean Corpuscular Godxsezukk5722-30-82 22:34:00* Test Item Value Reference Range Interpretation Comments Mean Corpuscular Hemoglobin (test code = 785-6) 31.5 28-[address] [facility] [place], [place]Mean Corpuscular Hemoglobin Concent 2017-10-29 22:34:00* Test Item Value Reference Range Interpretation Comments Mean Corpuscular Hemoglobin Concent (test code = 786-4) 33.7 31-[address] [facility] [place], TXRed Cell Distribution Clwho9225-79-75 22:34:00* Test Item Value Reference Range Interpretation Comments Red Cell Distribution Width (test code = 70783-5) 14.7 11.7 -14.[address] [facility] [place], TXPlatelet Jfbti3752-76-37 22:34:00* Test Item Value Reference Range Interpretation Comments Platelet Count (test code = 777-3) 265 140-[address] [facility] [place], TXNeutrophils (%) (Auto)2017-10-29 22:34:00 * Test Item Value Reference Range Interpretation Comments Neutrophils (%) (Auto) (test code = 44875-1) 68.2 38.7-80.[address] [facility] [place], TXLymphocytes (%) (Auto)2017-10-29 22:34:00 * Test Item Value Reference Range Interpretation Comments Lymphocytes (%) (Auto) (test code = 736-9) 23.0 18.0-39.[address] [facility] [place], TXMonocytes (%) (Auto)2017-10-29 22:34:00* Test Item Value Reference Range Interpretation Comments Monocytes (%) (Auto) (test code = 5905-5) 7.0 4.4-11.[address] [facility] [place], TXEosinophils (%) (Auto)2017-10-29 22:34:00 * Test Item Value Reference Range Interpretation Comments Eosinophils (%) (Auto) (test code = 713-8) 1.1 0.0-6.[address] [facility] [place], TXBasophils (%) (Auto)2017-10-29 22:34:00* Test Item Value Reference Range Interpretation Comments Basophils (%) (Auto) (test code = 706-2) 0.4 0.0-1.[address] [facility] [place], TXIM GRANULOCYTES %2017-10-29 22:34:00* Test Item Value Reference Range Interpretation Comments IM GRANULOCYTES % (test code = IM GRANULOCYTES %) 0.3 0.0- 1.[address] [facility] [place], TXNeutrophils # (Auto)2017-10-29 22:34:00* Test Item Value Reference Range Interpretation Comments Neutrophils # (Auto) (test code = 751-8) 4.9 2.1-6.[address] [facility] [place], TXLymphocytes # (Auto)2017-10-29 22:34:00* Test Item Value Reference Range Interpretation Comments Lymphocytes # (Auto) (test code = 32766-6) 1.7 1.0-3.[address] [facility] [place], TXMonocytes # (Auto)2017-10-29 22:34:00* Test Item Value Reference Range Interpretation Comments Monocytes # (Auto) (test code = 742-7) 0.5 0.2-0.[address] [facility] [place], TXEosinophils # (Auto)2017-10-29 22:34:00* Test Item Value Reference Range Interpretation Comments Eosinophils # (Auto) (test code = 711-2) 0.1 0.0-0.[address] [facility] [place], TXBasophils # (Auto)2017-10-29 22:34:00* Test Item Value Reference Range Interpretation Comments Basophils # (Auto) (test code = 704-7) 0.0 0.0-0.[address] [facility] [place], TXAbsolute Immature Granulocyte (auto 2017-10-29 22:34:00* Test Item Value Reference Range Interpretation Comments Absolute Immature Granulocyte (auto (tk t code = Absolute Immature Granulocyte (auto) 0.02 0-0.[address] [facility] [place], TXVitamin B6 Yytnd9253-19-84 05:46:00* Test Item Value Reference Range Interpretation Comments Vitamin B6 Level (test code = 2900-9) 8.8 2.0-32.8 This test was developed and its performance characteristicsdetermined by [employer] . It has not been cleared orapproved by the Food and Drug Administration.Perform ed at: [address] [id number] Dir delaney: Sunday Alejandro MD, Phone: [phone] St[facility] [place], TXVitamin B6 Tldwg1202-59-62 05:46:00* Test Item Value Reference Range Interpretation Comments Vitamin B6 Level (test code = 2900-9) 8.8 2.0-32.8 This test was developed and its performance characteristicsdetermined by [facility] . It has not been cleared orapproved by the Food and Drug Administration.Perform ed at: [address] [id number] Dir delaney: Sunday Alejandro MD, Phone: [phone] St[facility] [place], TXVitamin B6 Kuchj2875-11-33 05:46:00* Test Item Value Reference Range Interpretation Comments Vitamin B6 Level (test code = 2900-9) 8.8 2.0-32.8 This test was developed and its performance characteristicsdetermined by [employer] . It has not been cleared orapproved by the Food and Drug Administration.Perform ed at: [address] [id number] Dir delaney: Sunday Alejandro MD, Phone: [phone] St[facility] [place], TXBedside Jdgkkau9671-45-85 11:58:00* Test Item Value Reference Range Interpretation Comments Bedside Glucose (test code = 45516-3) 137 70-120 H Meter ID: [id number] [facility] Gl[facility] 2017-10-17 11:58:00* Test Item Value Reference Range Interpretation Comments Bedside Glucose (test code = 76004-3) 137 70-120 H Meter ID: [id number] [facility] DallasC-Reactive Protein 2017-10-16 12:55:00* Test Item Value Reference Range Interpretation Comments C-Reactive Protein (test code = 1987-5) 1.5 0.0-4.9 Performed at: [address] [id number] Director: Italo Joyner MD, Phone: [phone] [facility] [place], TXC-Reactive Qubgcck3105-77-47 12:55:00* Test Item Value Reference Range Interpretation Comments C-Reactive Protein (test code = 1987-12) 1.5 0.0-4.9 Performed at: [address] [id number] Director: Italo Joyner MD, Phone: [phone] [facility] [place], TXC-Reactive Fvmszft0202-23-89 12:55:00* Test Item Value Reference Range Interpretation Comments C-Reactive Protein (test code = 1987-12) 1.5 0.0-4.9 Performed at: [address] [id number] Director: Italo Joyner MD, Phone: [phone] [facility] [place], TXC-Reactive Ccmdknw2627-50-87 12:55:00* Test Item Value Reference Range Interpretation Comments C-Reactive Protein (test code = 1987-12) 1.5 0.0-4.9 Performed at: [address] [id number] Director: Italo Joyner MD, Phone: [phone] Medical Centerodium Rejzm9359-81-91 07:22:00* Test Item Value Reference Range Interpretation Comments Sodium Level (test code = 2951-2) 139 136-[address] [facility] [place], TXPotassium Wrzdm6379-43-56 07:22:00* Test Item Value Reference Range Interpretation Comments Potassium Level (test code = 2823-3) 4.3 3.5-5.[address] [facility] [place], TXChloride Uzplp0998-00-57 07:22:00* Test Item Value Reference Range Interpretation Comments Chloride Level (test code = 2075-0) 100 98-[address] [facility] [place], TXCarbon Dioxide Yizuh6993-69-45 07:22:00* Test Item Value Reference Range Interpretation Comments Carbon Dioxide Level (test code = 2028-9) 30 22-[address] [facility] [place], TXAnion Kzj8237-71-79 07:22:00* Test Item Value Reference Range Interpretation Comments Anion Gap (test code = 13952-3) 13.3 8-[address] [facility] [place], TXBlood Urea Exvufuxs9269-62-33 07:22:00* Test Item Value Reference Range Interpretation Comments Blood Urea Nitrogen (test code = 3094-0) 39 7-[address] [facility] [place], TXCreatinine2018-03-02 07:22:00* Test Item Value Reference Range Interpretation Comments Creatinine (test code = 2160-0) 1.12 0.57-1.[address] [facility] [place], TXBUN/Creatinine Frjmk7882-75-43 07:22:00* Test Item Value Reference Range Interpretation Comments BUN/Creatinine Ratio (test code = 3097-3) 35 6-[address] [facility] [place], TXEstimat Glomerular Filtration Rate 2017-10-16 07:22:00* Test Item Value Reference Range Interpretation Comments Estimat Glomerular Filtration Rate (test code = 47009-8) 49 >60 L Ranges were taken from the National Kidney Disease Education Program and the [facility] [employer] literature.Reference ranges:60 or greater: Qdzhpg23-81 ( for 3 consecutive months): Chronic kidney disease 15 or less: Kidney failureCH[facility] [place], TXGlucose Yhonc2965-76-68 07:22:00* Test Item Value Reference Range Interpretation Comments Glucose Level (test code = KTF3131) 122 74-[address] [facility] [place], TXCalcium Fdmje4277-81-61 07:22:00* Test Item Value Reference Range Interpretation Comments Calcium Level (test code = 25054-6) 9.0 8.4-10.[address] [facility] [place], TXWhite Blood Lcqij1445-16-63 07:10:00* Test Item Value Reference Range Interpretation Comments White Blood Count (test code = 6690-2) 7.26 4.8-10.[address] [facility] [place], TXRed Blood Tapci5481-03-22 07:10:00* Test Item Value Reference Range Interpretation Comments Red Blood Count (test code = 789-8) 3.65 3.6-5.[address] [facility] [place], TXHemoglobin2018-03-02 07:10:00* Test Item Value Reference Range Interpretation Comments Hemoglobin (test code = 05766-5) 11.3 12.0-16.[address] [facility] [place], TXHematocrit2018-03-02 07:10:00* Test Item Value Reference Range Interpretation Comments Hematocrit (test code = 4544-3) 35.6 34.2-44.[address] [facility] [place], TXMean Corpuscular Gokfea2226-62-66 07:10:00* Test Item Value Reference Range Interpretation Comments Mean Corpuscular Volume (test code = 787-2) 97.5 81-[address] [facility] [place], TXMean Corpuscular Zwggqwwvpb7116-98-84 07:10:00* Test Item Value Reference Range Interpretation Comments Mean Corpuscular Hemoglobin (test code = 785-6) 31.0 28-[address] [facility] [place], TXMean Corpuscular Hemoglobin Concent 2017-10-16 07:10:00* Test Item Value Reference Range Interpretation Comments Mean Corpuscular Hemoglobin Concent (test code = 786-4) 31.7 31-[address] [facility] [place], TXRed Cell Distribution Vhebo4629-88-67 07:10:00* Test Item Value Reference Range Interpretation Comments Red Cell Distribution Width (test code = 26777-7) 15.2 11.7 -14.[address] [facility] [place], TXPlatelet Tkidj4000-83-22 07:10:00* Test Item Value Reference Range Interpretation Comments Platelet Count (test code = 777-3) 212 140-[address] [facility] [place], TXNeutrophils (%) (Auto)2017-10-16 07:10:00 * Test Item Value Reference Range Interpretation Comments Neutrophils (%) (Auto) (test code = 21484-1) 71.3 38.7-80.[address] [facility] [place], TXLymphocytes (%) (Auto)2017-10-16 07:10:00 * Test Item Value Reference Range Interpretation Comments Lymphocytes (%) (Auto) (test code = 736-9) 15.2 18.0-39.[address] [facility] [place], TXMonocytes (%) (Auto)2017-10-16 07:10:00* Test Item Value Reference Range Interpretation Comments Monocytes (%) (Auto) (test code = 5905-5) 9.6 4.4-11.[address] [facility] [place], TXEosinophils (%) (Auto)2017-10-16 07:10:00 * Test Item Value Reference Range Interpretation Comments Eosinophils (%) (Auto) (test code = 713-8) 2.9 0.0-6.[address] [facility] [place], TXBasophils (%) (Auto)2017-10-16 07:10:00* Test Item Value Reference Range Interpretation Comments Basophils (%) (Auto) (test code = 706-2) 0.6 0.0-1.[address] [facility] [place], TXIM GRANULOCYTES %2017-10-16 07:10:00* Test Item Value Reference Range Interpretation Comments IM GRANULOCYTES % (test code = IM GRANULOCYTES %) 0.4 0.0- 1.[address] [facility] [place], TXNeutrophils # (Auto)2017-10-16 07:10:00* Test Item Value Reference Range Interpretation Comments Neutrophils # (Auto) (test code = 751-8) 5.2 2.1-6.[address] [facility] [place], TXLymphocytes # (Auto)2017-10-16 07:10:00* Test Item Value Reference Range Interpretation Comments Lymphocytes # (Auto) (test code = 37020-0) 1.1 1.0-3.[address] [facility] [place], TXMonocytes # (Auto)2017-10-16 07:10:00* Test Item Value Reference Range Interpretation Comments Monocytes # (Auto) (test code = 742-7) 0.7 0.2-0.[address] [facility] [place], TXEosinophils # (Auto)2017-10-16 07:10:00* Test Item Value Reference Range Interpretation Comments Eosinophils # (Auto) (test code = 711-2) 0.2 0.0-0.[address] [facility] [place], TXBasophils # (Auto)2017-10-16 07:10:00* Test Item Value Reference Range Interpretation Comments Basophils # (Auto) (test code = 704-7) 0.0 0.0-0.[address] [facility] [place], TXAbsolute Immature Granulocyte (auto 2017-10-16 07:10:00* Test Item Value Reference Range Interpretation Comments Absolute Immature Granulocyte (auto (tk t code = Absolute Immature Granulocyte (auto) 0.03 0-0.[address] [facility] [place], TXVitamin B12 Hdpes2325-88-00 08:57:00* Test Item Value Reference Range Interpretation Comments Vitamin B12 Level (test code = 77561-4) 422 213-[address] [facility] [place], TXVitamin B12 Yetfn9536-67-70 08:57:00* Test Item Value Reference Range Interpretation Comments Vitamin B12 Level (test code = 84143-5) 422 213-[address] [facility] [place], TXVitamin B12 Ocmrg8628-34-24 08:57:00* Test Item Value Reference Range Interpretation Comments Vitamin B12 Level (test code = 85997-0) 422 213-[address] [facility] [place], TXVitamin B12 Mixmk1307-51-39 08:57:00* Test Item Value Reference Range Interpretation Comments Vitamin B12 Level (test code = 47075-9) 422 213-[address] [facility] [place], TXCreatine Kinase ED0405-25-11 08:56:00* Test Item Value Reference Range Interpretation Comments Creatine Kinase MB (test code = 20058-4) 1.00 0-5.[address] [facility] [place], TXTroponin V8119-12-75 08:56:00* Test Item Value Reference Range Interpretation Comments Troponin I (test code = NHY5218) -0.001 0-0.[address] [facility] [place], TXCreatine Oqlncl9151-14-60 08:46:00* Test Item Value Reference Range Interpretation Comments Creatine Kinase (test code = 2157-6) 161 29-[address] [facility] [place], TXErythrocyte Sedimentation Jfmb3477-90-13 08:39:00* Test Item Value Reference Range Interpretation Comments Erythrocyte Sedimentation Rate (test code = 4537-7) 58 0- [address] [facility] [place], TXTriglycerides Jahgo6305-41-19 06:47:00* Test Item Value Reference Range Interpretation Comments Triglycerides Level (test code = 2571-8) 143 0-[address] [facility] [place], TXCholesterol Djceb7222-53-66 06:47:00* Test Item Value Reference Range Interpretation Comments Cholesterol Level (test code = 2093-3) 219 0-199 H Less than 200 mg/dL Low Euyj533 - 239 mg/dL Borderline Pmtx998 m g/dl and greater High Risk [facility] [place], TXLDL Pcqxuczapxh8428-05-28 06:47:00* Test Item Value Reference Range Interpretation Comments LDL Cholesterol (test code = 2089-1) 142 60-[address] [facility] [place], TXHDL Cznttffoash2877-43-95 06:47:00* Test Item Value Reference Range Interpretation Comments HDL Cholesterol (test code = 2085-9) 48 40-[address] [facility] [place], TXCholesterol/HDL Edave6829-16-85 06:47:00 * Test Item Value Reference Range Interpretation Comments Cholesterol/HDL Ratio (test code = 9830-1) 4.6 3.0-3.[address] [facility] [place], TXTriglycerides Dikpz2358-62-77 06:47:00* Test Item Value Reference Range Interpretation Comments Triglycerides Level (test code = 2571-8) 143 0-[address] [facility] [place], TXCholesterol Nlwce6624-95-54 06:47:00* Test Item Value Reference Range Interpretation Comments Cholesterol Level (test code = 2093-3) 219 0-199 H Less than 200 mg/dL Low Jcba140 - 239 mg/dL Borderline Poxu439 m g/dl and greater High Risk [facility] [place], TXLDL Dmaidnfdske3307-74-15 06:47:00* Test Item Value Reference Range Interpretation Comments LDL Cholesterol (test code = 2089-1) 142 60-[address] [facility] [place], TXHDL Ldcfozumnwr8977-36-86 06:47:00* Test Item Value Reference Range Interpretation Comments HDL Cholesterol (test code = 2085-9) 48 40-[address] [facility] [place], TXCholesterol/HDL Pummz4398-35-45 06:47:00 * Test Item Value Reference Range Interpretation Comments Cholesterol/HDL Ratio (test code = 9830-1) 4.6 3.0-3.[address] [facility] [place], TXGroup A Streptococcus Hwbxfq2380-36-68 19:49:00* Test Item Value Reference Range Interpretation Comments Group A Streptococcus Screen (test code = 50911-8) NEGATIVE NEG ATIVE [facility] [place], TXGroup A Streptococcus Lwccyr4897-32-09 19:49:00* Test Item Value Reference Range Interpretation Comments Group A Streptococcus Screen (test code = 60916-8) NEGATIVE NEG ATIVE [facility] [place], TXGroup A Streptococcus Csnucn1290-27-09 19:49:00* Test Item Value Reference Range Interpretation Comments Group A Streptococcus Screen (test code = 49307-4) NEGATIVE NEG ATIVE [facility] A Streptococcus Lmgtxu5909-05-67 19:49:00* Test Item Value Reference Range Interpretation Comments Group A Streptococcus Screen (test code = 53674-3) NEGATIVE NEG ATIVE [facility] [place], TXUrine OBK8626-58-60 19:46:00* Test Item Value Reference Range Interpretation Comments Urine WBC (test code = 5821-4) 0-5 0-[address] [facility] [place], TXUrine TMQ2884-22-61 19:46:00* Test Item Value Reference Range Interpretation Comments Urine RBC (test code = 63439-8) NONE 0-[address] [facility] [place], TXUrine Usvvlrzn2925-88-97 19:46:00* Test Item Value Reference Range Interpretation Comments Urine Bacteria (test code = 13096-8) NONE NONE [facility] [place], TXUrine Epithelial Gzpzy4894-67-76 19:46:00 * Test Item Value Reference Range Interpretation Comments Urine Epithelial Cells (test code = 34162-2) FEW NONE [facility] [place], TXUrine PJW0490-13-50 19:46:00* Test Item Value Reference Range Interpretation Comments Urine WBC (test code = 5821-4) 0-5 0-[address] [facility] [place], TXUrine [id number] 19:46:00* Test Item Value Reference Range Interpretation Comments Urine RBC (test code = 93447-4) NONE 0-[address] [facility] [place], TXUrine Oiryjxbw9431-13-38 19:46:00* Test Item Value Reference Range Interpretation Comments Urine Bacteria (test code = 81827-7) NONE NONE [facility] [place], TXUrine Epithelial Doamr6119-13-25 19:46:00 * Test Item Value Reference Range Interpretation Comments Urine Epithelial Cells (test code = 46431-7) FEW NONE [facility] [place], TXUrine GHK2445-11-57 19:46:00* Test Item Value Reference Range Interpretation Comments Urine WBC (test code = 5821-4) 0-5 0-[address] [facility] [place], TXUrine TOD6957-69-60 19:46:00* Test Item Value Reference Range Interpretation Comments Urine RBC (test code = 58684-1) NONE 0-[address] [facility] [place], TXUrine Wqizhrfb6628-62-11 19:46:00* Test Item Value Reference Range Interpretation Comments Urine Bacteria (test code = 86874-3) NONE NONE [facility] [place], TXUrine Epithelial Ccpgi2543-98-62 19:46:00 * Test Item Value Reference Range Interpretation Comments Urine Epithelial Cells (test code = 75219-0) FEW NONE [facility] [place], TXUrine Fovuy4715-95-09 19:28:00* Test Item Value Reference Range Interpretation Comments Urine Color (test code = 5778-6) YELLOW YELLOW [facility] [place], TXUrine Nvkabam5513-60-76 19:28:00* Test Item Value Reference Range Interpretation Comments Urine Clarity (test code = 67129-9) CLEAR CLEAR [facility] [place], TXUrine Specific Wlpzjsa5442-76-38 19:28:00 * Test Item Value Reference Range Interpretation Comments Urine Specific [place] (test code = 5811-5) 1.010 1.010-1.[address] [facility] [place], TXUrine [id number] 19:28:00* Test Item Value Reference Range Interpretation Comments Urine pH (test code = 75157-5) 6.5 5-7 [facility] Leukocyte Ktlyqqbr8229-37-32 19:28:00* Test Item Value Reference Range Interpretation Comments Urine Leukocyte Esterase (test code = 5799-2) NEGATIVE NEGATIVE [facility] Qzdjhgp6924-58-37 19:28:00* Test Item Value Reference Range Interpretation Comments Urine Nitrite (test code = 62619-8) NEGATIVE NEGATIVE [facility] Patluax7243-48-31 19:28:00* Test Item Value Reference Range Interpretation Comments Urine Protein (test code = 5804-0) NEGATIVE NEGATIVE [facility] Glucose (UA)2017-10-14 19:28:00* Test Item Value Reference Range Interpretation Comments Urine Glucose (UA) (test code = 2349-9) NEGATIVE NEGATIVE [facility] Yyivmrz2514-47-81 19:28:00* Test Item Value Reference Range Interpretation Comments Urine Ketones (test code = 05916-4) NEGATIVE NEGATIVE [facility] Ziozdgnkmsxo1238-13-16 19:28:00* Test Item Value Reference Range Interpretation Comments Urine Urobilinogen (test code = 66648-8) 0.2 0.2-[address] [facility] [place], TXUrine Ehtuetoqk3375-41-52 19:28:00* Test Item Value Reference Range Interpretation Comments Urine Bilirubin (test code = 1978-6) NEGATIVE NEGATIVE [facility] Ldupk9744-40-67 19:28:00* Test Item Value Reference Range Interpretation Comments Urine Blood (test code = 56282-3) NEGATIVE NEGATIVE [facility] [place], TXUrine Andjv6179-73-65 19:28:00* Test Item Value Reference Range Interpretation Comments Urine Color (test code = 5778-6) YELLOW YELLOW [facility] [place], TXUrine Gyhjazh4577-71-64 19:28:00* Test Item Value Reference Range Interpretation Comments Urine Clarity (test code = 65957-7) CLEAR CLEAR [facility] [place], TXUrine Specific Qsbhkdm1883-31-41 19:28:00 * Test Item Value Reference Range Interpretation Comments Urine Specific [place] (test code = 5811-5) 1.010 1.010-1.[address] [facility] [place], TXUrine fP8279-32-62 19:28:00* Test Item Value Reference Range Interpretation Comments Urine pH (test code = 32033-1) 6.5 5-[address] [facility] [place], TXUrine Leukocyte Muczawaq1640-94-47 19:28:00* Test Item Value Reference Range Interpretation Comments Urine Leukocyte Esterase (test code = 5799-2) NEGATIVE NEGATIVE [facility] Vngxagy7300-34-31 19:28:00* Test Item Value Reference Range Interpretation Comments Urine Nitrite (test code = 03406-6) NEGATIVE NEGATIVE [facility] Usvgoxp6950-88-14 19:28:00* Test Item Value Reference Range Interpretation Comments Urine Protein (test code = 5804-0) NEGATIVE NEGATIVE [facility] Glucose (UA)2017-10-14 19:28:00* Test Item Value Reference Range Interpretation Comments Urine Glucose (UA) (test code = 2349-9) NEGATIVE NEGATIVE [facility] [place] Uncesda5122-16-22 19:28:00* Test Item Value Reference Range Interpretation Comments Urine Ketones (test code = 69316-8) NEGATIVE NEGATIVE [facility] [place], [place]Urine Avcnkyihzsgb2938-90-06 19:28:00* Test Item Value Reference Range Interpretation Comments Urine Urobilinogen (test code = 13218-6) 0.2 0.2-[address] [facility] [place], [place]Urine Rtlikxymx5027-72-97 19:28:00* Test Item Value Reference Range Interpretation Comments Urine Bilirubin (test code = 1978-6) NEGATIVE NEGATIVE [facility] [place], [place] Ekkzy7424-13-71 19:28:00* Test Item Value Reference Range Interpretation Comments Urine Blood (test code = 28274-0) NEGATIVE NEGATIVE [facility] [place], [place]Urine Iaiwz3822-22-29 19:28:00* Test Item Value Reference Range Interpretation Comments Urine Color (test code = 5778-6) YELLOW YELLOW [facility] [place], [place]Urine Coexbgm9494-80-81 19:28:00* Test Item Value Reference Range Interpretation Comments Urine Clarity (test code = 36420-5) CLEAR CLEAR [facility] [place], [place]Urine Specific Bahzgjh7767-72-95 19:28:00 * Test Item Value Reference Range Interpretation Comments Urine Specific [place] (test code = 5811-5) 1.010 1.010-1.[address] [facility] [place], [place]Urine fA9522-07-53 19:28:00* Test Item Value Reference Range Interpretation Comments Urine pH (test code = 16899-6) 6.5 5-[address] [facility] [place], [place]Urine Leukocyte Hknxbhvq5445-19-46 19:28:00* Test Item Value Reference Range Interpretation Comments Urine Leukocyte Esterase (test code = 5799-2) NEGATIVE NEGATIVE [facility] [place], [place]Urine Ceecvue7041-19-07 19:28:00* Test Item Value Reference Range Interpretation Comments Urine Nitrite (test code = 65757-1) NEGATIVE NEGATIVE [facility] [place], [place]Urine Xzjxxex7216-73-75 19:28:00* Test Item Value Reference Range Interpretation Comments Urine Protein (test code = 5804-0) NEGATIVE NEGATIVE [facility] [place], [place]Urine Glucose (UA)2017-10-14 19:28:00* Test Item Value Reference Range Interpretation Comments Urine Glucose (UA) (test code = 2349-9) NEGATIVE NEGATIVE [facility] [place], [place]Urine Rkqdwrf7173-45-59 19:28:00* Test Item Value Reference Range Interpretation Comments Urine Ketones (test code = 33648-7) NEGATIVE NEGATIVE [facility] [place], [place]Urine Atgmaivlpxxw6671-30-11 19:28:00* Test Item Value Reference Range Interpretation Comments Urine Urobilinogen (test code = 55348-0) 0.2 0.2-[address] [facility] [place], [place]Urine Tvidooyah1779-06-26 19:28:00* Test Item Value Reference Range Interpretation Comments Urine Bilirubin (test code = 1978-6) NEGATIVE NEGATIVE [facility] [place], [place]Urine Obzca6920-86-29 19:28:00* Test Item Value Reference Range Interpretation Comments Urine Blood (test code = 35269-4) NEGATIVE NEGATIVE [facility] [place], TXThyroid Stimulating Hormone (TSH) 2017-10-14 18:06:00* Test Item Value Reference Range Interpretation Comments Thyroid Stimulating Hormone (TSH) (test code = 30266-3) 0.151 0.350-4.[address] [facility] [place], TXThyroid Stimulating Hormone (TSH) 2017-10-14 18:06:00* Test Item Value Reference Range Interpretation Comments Thyroid Stimulating Hormone (TSH) (test code = 60182-3) 0.151 0.350-4.[address] [facility] [place], TXThyroid Stimulating Hormone (TSH) 2017-10-14 18:06:00* Test Item Value Reference Range Interpretation Comments Thyroid Stimulating Hormone (TSH) (test code = 53990-7) 0.151 0.350-4.[address] [facility] [place], TXThyroid Stimulating Hormone (TSH) 2017-10-14 18:06:00* Test Item Value Reference Range Interpretation Comments Thyroid Stimulating Hormone (TSH) (test code = 74652-8) 0.151 0.350-4.[address] [facility] [place], TXB-Type Natriuretic Fviqolc2826-19-53 17:55:00* Test Item Value Reference Range Interpretation Comments B-Type Natriuretic Peptide (test code = 63830-5) 29.8 0-[address] [facility] [place], TXB-Type Natriuretic Kcgnguq7446-44-15 17:55:00* Test Item Value Reference Range Interpretation Comments B-Type Natriuretic Peptide (test code = 24562-0) 29.8 0-[address] [facility] [place], TXMagnesium Ymlmy0273-08-26 17:49:00* Test Item Value Reference Range Interpretation Comments Magnesium Level (test code = 85779-7) 2.2 1.3-2.[address] [facility] [place], TXTotal Xyvxswyme4784-69-72 17:49:00* Test Item Value Reference Range Interpretation Comments Total Bilirubin (test code = 1975-2) 1.0 0.2-1.[address] [facility] [place], TXAspartate Amino Transf (AST/SGOT) 2017-10-14 17:49:00* Test Item Value Reference Range Interpretation Comments Aspartate Amino Transf (AST/SGOT) (test code = Aspartate Amino Transf (AST/SGOT)) 19 5-[address] [facility] [place], TXAlanine Aminotransferase (ALT/SGPT) 2017-10-14 17:49:00* Test Item Value Reference Range Interpretation Comments Alanine Aminotransferase (ALT/SGPT) (test code = 1742-6) 13 0-[address] [facility] [place], TXTotal Bhuwkuc1555-63-68 17:49:00* Test Item Value Reference Range Interpretation Comments Total Protein (test code = 2885-2) 7.7 6.5-8.[address] [facility] [place], TXAlbumin2018-02-28 17:49:00* Test Item Value Reference Range Interpretation Comments Albumin (test code = 1751-7) 3.9 3.5-5.[address] [facility] [place], TXGlobulin2018-02-28 17:49:00* Test Item Value Reference Range Interpretation Comments Globulin (test code = 36650-6) 3.8 2.3-3.[address] [facility] [place], TXAlbumin/Globulin Surdm3840-47-59 17:49:00 * Test Item Value Reference Range Interpretation Comments Albumin/Globulin Ratio (test code = 1759-0) 1.0 0.8-2.[address] [facility] [place], TXAlkaline Vfxnivdcwvr3098-57-13 17:49:00* Test Item Value Reference Range Interpretation Comments Alkaline Phosphatase (test code = 6768-6) 90 40-[address] [facility] [place], TXInfluenza Virus Types A,B Antigen 2017-10-14 17:42:00* Test Item Value Reference Range Interpretation Comments Influenza Virus Types A,B Antigen (test code = 67479-6) NEGATIVE NEGATIVE [facility] [place], TXLactic Acid Qphjf3944-32-79 17:42:00* Test Item Value Reference Range Interpretation Comments Lactic Acid Level (test code = Lactic Acid Level) 5.1 4.5- 19.[address] [facility] [place], TXInfluenza Virus Types A,B Antigen 2017-10-14 17:42:00* Test Item Value Reference Range Interpretation Comments Influenza Virus Types A,B Antigen (test code = 04958-1) NEGATIVE NEGATIVE [facility] [place], TXLactic Acid Kahch9845-86-71 17:42:00* Test Item Value Reference Range Interpretation Comments Lactic Acid Level (test code = Lactic Acid Level) 5.1 4.5- 19.[address] [facility] [place], TXInfluenza Virus Types A,B Antigen 2017-10-14 17:42:00* Test Item Value Reference Range Interpretation Comments Influenza Virus Types A,B Antigen (test code = 05249-4) NEGATIVE NEGATIVE [facility] [place], TXLactic Acid Adohk0301-79-07 17:42:00* Test Item Value Reference Range Interpretation Comments Lactic Acid Level (test code = Lactic Acid Level) 5.1 4.5- 19.[address] [facility] [place], TXInfluenza Virus Types A,B Antigen 2017-10-14 17:42:00* Test Item Value Reference Range Interpretation Comments Influenza Virus Types A,B Antigen (test code = 48170-4) NEGATIVE NEGATIVE [facility] [place], TXLactic Acid Rcfld5001-40-44 17:42:00* Test Item Value Reference Range Interpretation Comments Lactic Acid Level (test code = Lactic Acid Level) 5.1 4.5- 19.[address] [facility] [place], TXProthrombin Mbax8772-99-18 17:36:00* Test Item Value Reference Range Interpretation Comments Prothrombin Time (test code = 5902-2) 11.9 11.9-14.[address] [facility] [place], TXProthromb Time International Ratio 2017-10-14 17:36:00* Test Item Value Reference Range Interpretation Comments Prothromb Time International Ratio (test code = 6301-6) 0.95 Oral Anticoagulant Therapy INR Values:1. Low Intensity Therapy 1.5 - 2.02 . Moderate Intensity Therapy 2.0 - 3.03. High Intensity Therapy(1) 2.5 - 3. 54. High Intensity Therapy(2) 3.0 - 4.05. Panic Value INR > 5.[address] [facility] [place], TXActivated Partial Thromboplast Time 2017-10-14 17:36:00* Test Item Value Reference Range Interpretation Comments Activated Partial Thromboplast Time (test code = 36184-0) 26.8 23.8-35.[address] [facility] [place], TXUrine OUB3167-27-78 13:29:00* Test Item Value Reference Range Interpretation Comments Urine WBC (test code = 5821-4) 0-5 0-[address] [facility] [place], TXUrine KTU1315-82-66 13:29:00* Test Item Value Reference Range Interpretation Comments Urine RBC (test code = 36502-5) 11-20 0-[address] [facility] [place], TXUrine Yrgqtwwm4056-75-85 13:29:00* Test Item Value Reference Range Interpretation Comments Urine Bacteria (test code = 78757-9) RARE NONE [facility] [place], TXUrine Epithelial Zcjxe6435-46-85 13:29:00 * Test Item Value Reference Range Interpretation Comments Urine Epithelial Cells (test code = 89350-8) FEW NONE [facility] [place], TXUrine Fine Granular Peujh8639-11-73 13:29:00* Test Item Value Reference Range Interpretation Comments Urine Fine Granular Casts (test code = 87849-1) 1-5 >[address] [facility] [place], TXUrine Fine Granular Crdhu5524-51-27 13:29:00* Test Item Value Reference Range Interpretation Comments Urine Fine Granular Casts (test code = 10009-4) 1-5 >[address] [facility] [place], TXUrine Fine Granular Kjzbt7178-37-89 13:29:00* Test Item Value Reference Range Interpretation Comments Urine Fine Granular Casts (test code = 23926-5) 1-5 >[address] [facility] [place], TXUrine Fine Granular Ycrnq2270-12-69 13:29:00* Test Item Value Reference Range Interpretation Comments Urine Fine Granular Casts (test code = 05244-3) 1-5 >[address] [facility] [place], TXUrine Fine Granular Jnfdm0568-54-76 13:29:00* Test Item Value Reference Range Interpretation Comments Urine Fine Granular Casts (test code = 49073-9) 1-5 >[address] [facility] [place], TXUrine Obmou6987-45-01 13:22:00* Test Item Value Reference Range Interpretation Comments Urine Color (test code = 5778-6) YELLOW YELLOW [facility] [place], TXUrine Mndzpsx0854-29-09 13:22:00* Test Item Value Reference Range Interpretation Comments Urine Clarity (test code = 06608-1) SL CLOUDY CLEAR [facility] [place], TXUrine Specific Zrenkgf8703-04-05 13:22:00 * Test Item Value Reference Range Interpretation Comments Urine Specific [place] (test code = 5811-5) 1.015 1.010-1.[address] [facility] [place], TXUrine hB8576-94-24 13:22:00* Test Item Value Reference Range Interpretation Comments Urine pH (test code = 41570-0) 6 5-[address] [facility] [place], TXUrine Leukocyte Goimuhpx9316-94-60 13:22:00* Test Item Value Reference Range Interpretation Comments Urine Leukocyte Esterase (test code = 5799-2) TRACE NEGATIVE H [facility] [place], TXUrine Ohlojxv4875-32-38 13:22:00* Test Item Value Reference Range Interpretation Comments Urine Nitrite (test code = 02331-1) NEGATIVE NEGATIVE [facility] [place], TXUrine Apqcsqt2106-18-63 13:22:00* Test Item Value Reference Range Interpretation Comments Urine Protein (test code = 5804-0) 1+ NEGATIVE H [facility] [place], TXUrine Glucose (UA)2017-10-06 13:22:00* Test Item Value Reference Range Interpretation Comments Urine Glucose (UA) (test code = 2349-9) NEGATIVE NEGATIVE [facility] [place], TXUrine Qqhhajq3997-76-24 13:22:00* Test Item Value Reference Range Interpretation Comments Urine Ketones (test code = 78387-7) NEGATIVE NEGATIVE [facility] [place], TXUrine Dvwkfdkucdsc9020-35-25 13:22:00* Test Item Value Reference Range Interpretation Comments Urine Urobilinogen (test code = 41107-2) 0.2 0.2-[address] [facility] [place], TXUrine Uakhwogwu0498-00-44 13:22:00* Test Item Value Reference Range Interpretation Comments Urine Bilirubin (test code = 1978-6) NEGATIVE NEGATIVE [facility] [place], TXUrine Dhinb3834-79-44 13:22:00* Test Item Value Reference Range Interpretation Comments Urine Blood (test code = 20908-7) 4+ NEGATIVE H [facility] [place], TXWhite Blood Mbxth7036-69-84 13:21:00* Test Item Value Reference Range Interpretation Comments White Blood Count (test code = 6690-2) 7.32 4.8-10.[address] [facility] [place], TXRed Blood Pjbis6437-64-88 13:21:00* Test Item Value Reference Range Interpretation Comments Red Blood Count (test code = 789-8) 3.76 3.6-5.[address] [facility] [place], TXHemoglobin2018-02-20 13:21:00* Test Item Value Reference Range Interpretation Comments Hemoglobin (test code = 83252-9) 11.8 12.0-16.[address] [facility] [place], TXHematocrit2018-02-20 13:21:00* Test Item Value Reference Range Interpretation Comments Hematocrit (test code = 4544-3) 35.3 34.2-44.[address] [facility] [place], TXMean Corpuscular Cqkjyt2022-88-48 13:21:00* Test Item Value Reference Range Interpretation Comments Mean Corpuscular Volume (test code = 787-2) 93.9 81-[address] [facility] [place], TXMean Corpuscular Ggdsridmqk5875-85-29 13:21:00* Test Item Value Reference Range Interpretation Comments Mean Corpuscular Hemoglobin (test code = 785-6) 31.4 28-[address] [facility] [place], TXMean Corpuscular Hemoglobin Concent 2017-10-06 13:21:00* Test Item Value Reference Range Interpretation Comments Mean Corpuscular Hemoglobin Concent (test code = 786-4) 33.4 31-[address] [facility] [place], TXRed Cell Distribution Gdvaj4924-78-69 13:21:00* Test Item Value Reference Range Interpretation Comments Red Cell Distribution Width (test code = 96676-4) 15.5 11.7 -14.[address] [facility] [place], TXPlatelet Epchn4864-35-96 13:21:00* Test Item Value Reference Range Interpretation Comments Platelet Count (test code = 777-3) 241 140-[address] [facility] [place], TXNeutrophils (%) (Auto)2017-10-06 13:21:00 * Test Item Value Reference Range Interpretation Comments Neutrophils (%) (Auto) (test code = 16021-7) 64.1 38.7-80.[address] [facility] [place], TXLymphocytes (%) (Auto)2017-10-06 13:21:00 * Test Item Value Reference Range Interpretation Comments Lymphocytes (%) (Auto) (test code = 736-9) 21.2 18.0-39.[address] [facility] [place], TXMonocytes (%) (Auto)2017-10-06 13:21:00* Test Item Value Reference Range Interpretation Comments Monocytes (%) (Auto) (test code = 5905-5) 11.6 4.4-11.[address] [facility] [place], TXEosinophils (%) (Auto)2017-10-06 13:21:00 * Test Item Value Reference Range Interpretation Comments Eosinophils (%) (Auto) (test code = 713-8) 2.2 0.0-6.[address] [facility] [place], TXBasophils (%) (Auto)2017-10-06 13:21:00* Test Item Value Reference Range Interpretation Comments Basophils (%) (Auto) (test code = 706-2) 0.5 0.0-1.[address] [facility] [place], TXIM GRANULOCYTES %2017-10-06 13:21:00* Test Item Value Reference Range Interpretation Comments IM GRANULOCYTES % (test code = IM GRANULOCYTES %) 0.4 0.0- 1.[address] [facility] [place], TXNeutrophils # (Auto)2017-10-06 13:21:00* Test Item Value Reference Range Interpretation Comments Neutrophils # (Auto) (test code = 751-8) 4.7 2.1-6.[address] [facility] [place], TXLymphocytes # (Auto)2017-10-06 13:21:00* Test Item Value Reference Range Interpretation Comments Lymphocytes # (Auto) (test code = 92173-3) 1.6 1.0-3.[address] [facility] [place], TXMonocytes # (Auto)2017-10-06 13:21:00* Test Item Value Reference Range Interpretation Comments Monocytes # (Auto) (test code = 742-7) 0.9 0.2-0.[address] [facility] [place], TXEosinophils # (Auto)2017-10-06 13:21:00* Test Item Value Reference Range Interpretation Comments Eosinophils # (Auto) (test code = 711-2) 0.2 0.0-0.[address] [facility] [place], TXBasophils # (Auto)2017-10-06 13:21:00* Test Item Value Reference Range Interpretation Comments Basophils # (Auto) (test code = 704-7) 0.0 0.0-0.[address] [facility] [place], TXAbsolute Immature Granulocyte (auto 2017-10-06 13:21:00* Test Item Value Reference Range Interpretation Comments Absolute Immature Granulocyte (auto (tk t code = Absolute Immature Granulocyte (auto) 0.03 0-0.1 [facility] Ikvey1788-93-31 13:21:00* Test Item Value Reference Range Interpretation Comments Sodium Level (test code = 2951-2) 139 136-[address] [facility] [place], TXPotassium Oamml7621-74-86 13:21:00* Test Item Value Reference Range Interpretation Comments Potassium Level (test code = 2823-3) 3.8 3.5-5.[address] [facility] [place], TXChloride Cknwk8846-82-06 13:21:00* Test Item Value Reference Range Interpretation Comments Chloride Level (test code = 2075-0) 98 98-[address] [facility] [place], TXCarbon Dioxide Qvkdw2659-38-60 13:21:00* Test Item Value Reference Range Interpretation Comments Carbon Dioxide Level (test code = 2028-9) 33 22-[address] [facility] [place], TXAnion Pue1004-43-88 13:21:00* Test Item Value Reference Range Interpretation Comments Anion Gap (test code = 48942-2) 11.8 8-[address] [facility] [place], TXBlood Urea Xfkwwoct1346-02-73 13:21:00* Test Item Value Reference Range Interpretation Comments Blood Urea Nitrogen (test code = 3094-0) 36 7-[address] [facility] [place], TXCreatinine2018-02-20 13:21:00* Test Item Value Reference Range Interpretation Comments Creatinine (test code = 2160-0) 1.20 0.57-1.[address] [facility] [place], TXBUN/Creatinine Odzke1725-81-57 13:21:00* Test Item Value Reference Range Interpretation Comments BUN/Creatinine Ratio (test code = 3097-3) 30 6-[address] [facility] [place], TXEstimat Glomerular Filtration Rate 2017-10-06 13:21:00* Test Item Value Reference Range Interpretation Comments Estimat Glomerular Filtration Rate (test code = 87533-1) 45 >60 L Ranges were taken from the National Kidney Disease Education Program and the [facility] literature.Reference ranges:60 or greater: Bmnbfl90-92 ( for 3 consecutive months): Chronic kidney disease 15 or less: Kidney failure[facility] [place], TXGlucose Uffhs3488-69-07 13:21:00* Test Item Value Reference Range Interpretation Comments Glucose Level (test code = XXO5988) 110 74-[address] [facility] [place], TXCalcium Mcesi3536-55-43 13:21:00* Test Item Value Reference Range Interpretation Comments Calcium Level (test code = 11748-9) 8.7 8.4-10.[address] [facility] [place], TXTotal Lherjcsqk0992-49-87 13:21:00* Test Item Value Reference Range Interpretation Comments Total Bilirubin (test code = 1975-2) 0.5 0.2-1.[address] [facility] [place], TXAspartate Amino Transf (AST/SGOT) 2017-10-06 13:21:00* Test Item Value Reference Range Interpretation Comments Aspartate Amino Transf (AST/SGOT) (test code = Aspartate Amino Transf (AST/SGOT)) 15 5-[address] [facility] [place], TXAlanine Aminotransferase (ALT/SGPT) 2017-10-06 13:21:00* Test Item Value Reference Range Interpretation Comments Alanine Aminotransferase (ALT/SGPT) (test code = 1742-6) 10 0-[address] [facility] [place], TXTotal Erutrdq6119-72-49 13:21:00* Test Item Value Reference Range Interpretation Comments Total Protein (test code = 2885-2) 7.1 6.5-8.[address] [facility] [place], TXAlbumin2018-02-20 13:21:00* Test Item Value Reference Range Interpretation Comments Albumin (test code = 1751-7) 3.4 3.5-5.[address] [facility] [place], TXGlobulin2018-02-20 13:21:00* Test Item Value Reference Range Interpretation Comments Globulin (test code = 50904-3) 3.7 2.3-3.[address] [facility] [place], TXAlbumin/Globulin Iopqi9529-12-08 13:21:00 * Test Item Value Reference Range Interpretation Comments Albumin/Globulin Ratio (test code = 1759-0) 0.9 0.8-2.[address] [facility] [place], TXAlkaline Flpexmbtpws5881-38-60 13:21:00* Test Item Value Reference Range Interpretation Comments Alkaline Phosphatase (test code = 6768-6) 84 40-[address] [facility] [place], TXLipase2018-02-20 13:21:00* Test Item Value Reference Range Interpretation Comments Lipase (test code = 3040-3) [facility] [place], TXLipase2018-02-20 13:21:00* Test Item Value Reference Range Interpretation Comments Lipase (test code = 3040-3) [facility] [place], TXLipase2018-02-20 13:21:00* Test Item Value Reference Range Interpretation Comments Lipase (test code = 3040-3) [facility] [place], TXLipase2018-02-20 13:21:00* Test Item Value Reference Range Interpretation Comments Lipase (test code = 3040-3) [facility] [place], TXLipase2018-02-20 13:21:00* Test Item Value Reference Range Interpretation Comments Lipase (test code = 3040-3) [facility] [place], TXBedside Qoyraoe0756-49-69 15:38:00* Test Item Value Reference Range Interpretation Comments Bedside Glucose (test code = 34932-1) 96 70-120 Meter ID: [id number] [facility] SINGLE (PORTABLE) [facility] [address] [address] Patient Name: RODGER NICHOLS MR #: [id number] : 1950 Age/Sex: 67/F Req #: [id number] Adm Physician: Ordered by: OMI HAYS NP Report #: [id number] Location: ER Room/Bed: Procedure: [id number] DX/CHEST SINGLE (PORTABLE) Exam Date: 12/21/17 Exam [...] TO: OMI HAYS NP CT BRAIN WO [facility] [address] [address] Patient Name: RODGER NICHOLS MR #: [id number] : 1950 Age/Sex: 67/F Req #: [id number] Adm Physician: Ordered by: OMI HAYS NP Report #: [id number] Location: ER Room/Bed: Procedure: [id number] CT/CT BRAIN WO Exam Date: 12/21/17 Exam [...] CT on 10/14/2017 Signed by: Dr Javan Martinez M.D. on 12/21/2017 12:35 PM Dictated By: DARIEL MARTINEZ MD Vicky ctronically Signed By: DARIEL MARTINEZ MD on 12/21/17 1235 Transcribed By: MARY on 12/21/17 1235 COPY TO: [facility] NP CHEST SINGLE (PORTABLE) [place] [address] Patient Name: RODGER NICHOLS MR #: [id number] : 1950 Age/Sex: 67/F Req #: [id number] Adm Physician: Ordered by: NIRALI CONTRERAS MD Report #: [id number] Location: ER Room/Bed: Procedure: [id number] DX/CHEST SINGLE (PORTABLE ) Exam Date: 11/30/17 [...] TO: NIRALI CONTRERAS MD CHEST 2 VIEWS [place] [address] Patient Name: RODGER NICHOLS MR #: [id number] : 1950 Age/Sex: 67/F Req #: [id number] Adm Physician: Ordered by: RAMEZ MELENDEZ MD Report #: [id number] Location: OR Room/Bed: Procedure: [id number] DX/CHEST 2 VIEWS Exam [place] e: 11/11/17 [...] TO: RAMEZ MELENDEZ MD CHEST SINGLE (PORTABLE) [place] [address] Patient Name: RODGER NICHOLS MR #: [id number] : 1950 Age/Sex: 67/F Req #: [id number] Adm Physician: Ordered by: [employer] Report #: [id number] Location: ER Room/Bed: Procedure: [id number] DX/CHEST SINGLE (PORTABLE ) Exam Date: 10/14/17 [...] on 10/14/17 1541 COPY TO: [facility] [employer] [employer] CT BRAIN WO [place] [address] Patient Name: RODGER NICHOLS MR #: [id number] : 1950 Age/Sex: 67/F Req #: [id number] Adm Physician: Ordered by: [employer] Report #: [id number] Location: [facility]/Bed: Procedure: [id number] CT/CT BRAIN WO Exam Date : 10/14/17 [...] on 10/14/17 1557 COPY TO: [facility]NE [employer] [employer] CT ABDOMEN/PELVIS WO [place] [address] Patient Name: RODGER NICHOLS MR #: [id number] : 1950 Age/Sex: 67/F Req #: [id number] Adm Physician: Ordered by: NIRALI VALDEZ MD Report #: [id number] Location: [facility] /Bed: Procedure: [id number] CT/CT ABDOMEN/PELVIS WO Exam Date: 10/06/17 Exam [...] TO: NIRALI VALDEZ MD RENAL SCAN W/LASIX [place] [address] Patient Name: RODGER NICHOLS MR #: [id number] : 1950 Age/Sex: 67/F Req #: [id number] Adm Physician: Ordered by: DHARA CHAVIRA MD Report #: [id number] Location: [place] Room/Bed: Procedure: [id number] NM/RENAL SCAN W/LASIX Exam Da te: 09/17/17 [...] TO: DHARA LANGE MD CHEST 2 VIEWS [place] [address] Patient Name: RODGER NICHOLS MR #: [id number] : 1950 Age/Sex: 67/F Req #: [id number] Adm Physician: Ordered by: DHARA CHAVIRA MD Report #: [id number] Location: OR Room/Bed: Procedure: [id number] DX/CHEST 2 VIEWS Exam Date: 08/24/17 Exam [...] TO: DHARA CHAVIRA MD RENAL SCAN W/LASIX [place] [address] Patient Name: RODGER NICHOLS MR #: [id number] : 1950 Age/Sex: 67/F Req #: [id number] Adm Physician: Ordered by: DHARA CHAVIRA MD Report #: [id number] Location: [place] Room/Bed: Procedure: 5413-1298 NM/RENAL SCAN W/LASIX Exam Da te: 06/17/17 [...]
--- NOTE | 2020-03-18 12:33 | Discharge Summary ---
HOSPITAL COURSE: This patient came in with colitis of uncertain nature. She had acute on chronic renal failure when she came in. She continued to have intractable nausea and vomiting and the patient has a history of congestive heart failure and diastolic and also history of pulmonary hypertension. The patient was given IV fluids. Her hemoglobin was stable at 12.5, on discharge 11.4. Chemistry show a creatinine of 1.47 with EGFR of 35, early on the patient when came in had a creatinine of 1.7 with EGFR of 29. The patient was not given any antibiotics. The patient was discharged home. She is to increase her fluid intake and also to stop the diarrhea loperamide was written. For further information, look in the chart. FINAL DIAGNOSES: Acute dehydration, colitis of uncertain origin, presumably not infectious. The patient was discharged with her home medications. Addition information or diagnoses include pulmonary hypertension, acute and chronic diastolic dysfunction. MD JEISON Waldrop/MODL /[id number]
== END 2020-03-06 15:22 | disposition home or self-care (01) | DRG 682 ==
LOC: ER 04:00 → ERHOLD 07:01 → MED/SURG2 10:43
PROVIDERS: ADMIT Family Medicine; ATTEND Family Medicine
DX: N17.9 Acute kidney failure, unspecified (principal); I50.33 Acute on chronic diastolic (congestive) heart failure; K52.9 Noninfective gastroenteritis and colitis, unspecified; E86.0 Dehydration; I11.0 Hypertensive heart disease with heart failure; K21.9 Gastro-esophageal reflux disease without esophagitis; E03.9 Hypothyroidism, unspecified; E78.5 Hyperlipidemia, unspecified; Z79.4 Long term (current) use of insulin; N18.3 Chronic kidney disease, stage 3 (moderate); I27.20 Pulmonary hypertension, unspecified; Z85.3 Personal history of malignant neoplasm of breast; Z85.850 Personal history of malignant neoplasm of thyroid; E11.42 Type 2 diabetes mellitus with diabetic polyneuropathy; Z95.810 Presence of automatic (implantable) cardiac defibrillator; Z90.12 Acquired absence of left breast and nipple; Z87.891 Personal history of nicotine dependence; Z83.3 Family history of diabetes mellitus; Z82.49 Family history of ischemic heart disease and other diseases of the circulatory system; Z88.5 Allergy status to narcotic agent; Z88.0 Allergy status to penicillin; Z88.7 Allergy status to serum and vaccine; Z88.8 Allergy status to other drugs, medicaments and biological substances; Z88.1 Allergy status to other antibiotic agents; Z91.041 Radiographic dye allergy status
CPT/HCPCS: 36415; 74176; 80053; 81001; 82150; 82948; 83690; 83735; 84100; 85025; 99285; J1817; J2270; J2405; J7030; J7050; U0002

== ENCOUNTER → 2020-05-17 | Outpatient (CLI) | payer MEDICARE, OTHER ==
[2020-05-17 14:42] LABS: BASOPHILS % 0.3 % (0.0-1.0); EOSINOPHILS # (AUTO) 0.1 (0.0-0.4); EOSINOPHILS % 1.5 % (0.0-6.0); HEMATOCRIT 36.5 % (34.2-44.1); HEMOGLOBIN 11.6 g/dL (12.0-16.0); LYMPHOCYTES # (AUTO) 1.6 (1.0-3.2); LYMPHOCYTES % 18.3 % (18.0-39.1); MEAN CORPUSCULAR HEMOGLOBIN 31.6 pg (28-32); MEAN CORPUSCULAR HGB CONC 31.8 g/dL (31-35); MEAN CORPUSCULAR VOLUME 99.5 fL (81-99); MONOCYTES # (AUTO) 0.7 (0.2-0.8); MONOCYTES % 8.2 % (4.4-11.3); NEUTROPHILS # (AUTO) 6.2 (2.1-6.9); NEUTROPHILS % 71.2 % (38.7-80.0); PLATELET COUNT 266 x10e3/uL (140-360); RED BLOOD COUNT 3.67 x10e6/uL (3.6-5.1); RED CELL DISTRIBUTION WIDTH 14.7 % (11.7-14.4)
== END ==
LOC: DX 13:41 → EDSTATUS 05-21 07:30
PROVIDERS: ATTEND Internal Medicine Gastroenterology
DX: Z01.818 Encounter for other preprocedural examination (principal); R13.10 Dysphagia, unspecified; Z86.010 Personal history of colon polyps; Z11.59 Encounter for screening for other viral diseases
CPT/HCPCS: 36415; 85025; 93005; U0002

== ENCOUNTER → 2020-08-02 | Day surgery (SDC) | payer MEDICARE ==
[2020-07-30 13:37] LABS: BASOPHILS # (AUTO) 0.1 (0.0-0.1); BASOPHILS % 0.5 % (0.0-1.0); EOSINOPHILS # (AUTO) 0.1 (0.0-0.4); EOSINOPHILS % 0.8 % (0.0-6.0); HEMATOCRIT 41.2 % (34.2-44.1); HEMOGLOBIN 13.2 g/dL (12.0-16.0); LYMPHOCYTES # (AUTO) 1.8 (1.0-3.2); LYMPHOCYTES % 19.2 % (18.0-39.1); MEAN CORPUSCULAR HEMOGLOBIN 31.8 pg (28-32); MEAN CORPUSCULAR VOLUME 99.3 fL (81-99); MONOCYTES # (AUTO) 0.8 (0.2-0.8); NEUTROPHILS # (AUTO) 6.7 (2.1-6.9); NEUTROPHILS % 70.9 % (38.7-80.0); PLATELET COUNT 260 x10e3/uL (140-360); RED BLOOD COUNT 4.15 x10e6/uL (3.6-5.1); RED CELL DISTRIBUTION WIDTH 14.3 % (11.7-14.4)
[~2020-08-02] MED LIST changes: +BUPIVACAINE 0.25% 30ML SDV ONE; +FENTANYL CITRATE/PF 100MCG/2 ML INJ ONE; +LIDOCAINE HCL 1% 30ML-PF VIAL ONE; +LIDOCAINE HCL 2% LOCAL INJ 5 ML SDV VIAL INJ ONE; +MIDAZOLAM HCL 2 MG/2 ML VIAL ONE; +PROPOFOL IV EMULSION 10 MG/ML 20 ML VIAL ONE; +TRIAMCINOLONE ACET 40 MG/ML VIAL ONE; +VITAMIN D3250 MCG PO; +ZINC SULFATE220 M1 PO
[2020-08-02 07:35] VITALS: BP 164/94
== END | disposition home or self-care (01) ==
LOC: OR 05:38
PROVIDERS: ATTEND Physical Medicine & Rehabilitation Pain Medicine
DX: M46.1 Sacroiliitis, not elsewhere classified (principal); M70.62 Trochanteric bursitis, left hip; M70.61 Trochanteric bursitis, right hip; J45.909 Unspecified asthma, uncomplicated; G47.33 Obstructive sleep apnea (adult) (pediatric); I25.10 Atherosclerotic heart disease of native coronary artery without angina pectoris; E11.9 Type 2 diabetes mellitus without complications; K21.9 Gastro-esophageal reflux disease without esophagitis; E66.01 Morbid (severe) obesity due to excess calories; I11.0 Hypertensive heart disease with heart failure; I50.9 Heart failure, unspecified; Z91.041 Radiographic dye allergy status; Z88.6 Allergy status to analgesic agent; Z88.1 Allergy status to other antibiotic agents; Z88.0 Allergy status to penicillin; Z88.8 Allergy status to other drugs, medicaments and biological substances; Z01.810 Encounter for preprocedural cardiovascular examination; Z01.812 Encounter for preprocedural laboratory examination; Z20.828 Contact with and (suspected) exposure to other viral communicable diseases; Z79.02 Long term (current) use of antithrombotics/antiplatelets; Z79.4 Long term (current) use of insulin; Z95.5 Presence of coronary angioplasty implant and graft; Z95.0 Presence of cardiac pacemaker; Z85.3 Personal history of malignant neoplasm of breast; Z85.850 Personal history of malignant neoplasm of thyroid
CPT/HCPCS: 36415 ×2; 82948; 85025; 93005; G0260; J2001 ×2; J2250; J2704; J3010; J3301; U0002; 77003

== ENCOUNTER 2021-02-04 06:00 | Emergency (ER) | payer MEDICARE, OTHER ==
[~2021-02-04 06:00] MED LIST changes: -BUPIVACAINE 0.25% 30ML SDV ONE; -FENTANYL CITRATE/PF 100MCG/2 ML INJ ONE; -LIDOCAINE HCL 1% 30ML-PF VIAL ONE; -LIDOCAINE HCL 2% LOCAL INJ 5 ML SDV VIAL INJ ONE; -MIDAZOLAM HCL 2 MG/2 ML VIAL ONE; -PROPOFOL IV EMULSION 10 MG/ML 20 ML VIAL ONE; -TRIAMCINOLONE ACET 40 MG/ML VIAL ONE
== END 2021-02-05 01:39 | disposition home or self-care (01) ==
LOC: ER 06:20
DX: S22.41XA Multiple fractures of ribs, right side, initial encounter for closed fracture (principal); M54.5 Low back pain; M25.551 Pain in right hip; W17.89XA Other fall from one level to another, initial encounter; Y92.89 Other specified places as the place of occurrence of the external cause; I10 Essential (primary) hypertension; E11.9 Type 2 diabetes mellitus without complications; Z85.3 Personal history of malignant neoplasm of breast
CPT/HCPCS: 71250; 72131; 99284

== ENCOUNTER → 2021-02-14 | Day surgery (SDC) | payer MEDICARE ==
[2021-02-12 15:44] LABS: BASOPHILS % 0.7 % (0.0-1.0); EOSINOPHILS # (AUTO) 0.1 (0.0-0.4); EOSINOPHILS % 2.5 % (0.0-6.0); HEMATOCRIT 33.6 % (34.2-44.1); HEMOGLOBIN 10.3 g/dL (12.0-16.0); LYMPHOCYTES # (AUTO) 0.9 (1.0-3.2); LYMPHOCYTES % 16.3 % (18.0-39.1); MEAN CORPUSCULAR HEMOGLOBIN 32.1 pg (28-32); MEAN CORPUSCULAR HGB CONC 30.7 g/dL (31-35); MEAN CORPUSCULAR VOLUME 104.7 fL (81-99); MONOCYTES # (AUTO) 0.6 (0.2-0.8); MONOCYTES % 9.8 % (4.4-11.3); NEUTROPHILS % 70.2 % (38.7-80.0); PLATELET COUNT 218 x10e3/uL (140-360); RED BLOOD COUNT 3.21 x10e6/uL (3.6-5.1); RED CELL DISTRIBUTION WIDTH 14.6 % (11.7-14.4)
[~2021-02-14] MED LIST changes: +HEPARIN SOD (PORCINE) 5,000 UNIT/ML VIAL ONE; +LANTUS 3ML100 UNITS/ IJ; +ONDANSETRON HCL INJ 2MG/ML 2ML 2 MG/ML VIAL ONE; +SIMETHICONE 40 MG/0.6 ML BTL ONE
[2021-02-14 08:45] VITALS: BP 144/76
== END | disposition home or self-care (01) ==
LOC: ENDO 06:17
PROVIDERS: ATTEND Internal Medicine Gastroenterology
DX: K22.2 Esophageal obstruction (principal); K29.50 Unspecified chronic gastritis without bleeding; K20.90 Esophagitis, unspecified without bleeding; K22.8 Other specified diseases of esophagus; K21.9 Gastro-esophageal reflux disease without esophagitis; Z86.010 Personal history of colon polyps; K62.89 Other specified diseases of anus and rectum; G47.33 Obstructive sleep apnea (adult) (pediatric); E11.22 Type 2 diabetes mellitus with diabetic chronic kidney disease; I12.9 Hypertensive chronic kidney disease with stage 1 through stage 4 chronic kidney disease, or unspecified chronic kidney disease; N18.2 Chronic kidney disease, stage 2 (mild); I27.20 Pulmonary hypertension, unspecified; E03.9 Hypothyroidism, unspecified; I25.10 Atherosclerotic heart disease of native coronary artery without angina pectoris; Z88.1 Allergy status to other antibiotic agents; Z91.041 Radiographic dye allergy status; Z88.6 Allergy status to analgesic agent; Z88.0 Allergy status to penicillin; Z88.8 Allergy status to other drugs, medicaments and biological substances; Z01.810 Encounter for preprocedural cardiovascular examination; Z01.812 Encounter for preprocedural laboratory examination; Z20.822 Contact with and (suspected) exposure to COVID-19; Z79.4 Long term (current) use of insulin; Z68.42 Body mass index [BMI] 45.0-49.9, adult; Z85.3 Personal history of malignant neoplasm of breast; Z95.0 Presence of cardiac pacemaker
CPT/HCPCS: 36415 ×2; 43239; 43450; 82948; 85025; 93005; J1644; J2405; U0002; 43235

== ENCOUNTER 2021-09-13 15:58 | Emergency (ER) | payer MEDICARE ==
[~2021-09-13] VITALS: Ht 167.6 cm; Wt 117.9 kg
[~2021-09-13 15:58] MED LIST changes: -HEPARIN SOD (PORCINE) 5,000 UNIT/ML VIAL ONE; -ONDANSETRON HCL INJ 2MG/ML 2ML 2 MG/ML VIAL ONE; -SIMETHICONE 40 MG/0.6 ML BTL ONE
[2021-09-13 17:26] LABS: BASOPHILS % 0.5 % (0.0-1.0); EOSINOPHILS # (AUTO) 0.1 (0.0-0.4); EOSINOPHILS % 1.7 % (0.0-6.0); HEMATOCRIT 32.5 % (34.2-44.1); HEMOGLOBIN 9.9 g/dL (12.0-16.0); LYMPHOCYTES # (AUTO) 1.3 (1.0-3.2); LYMPHOCYTES % 17.2 % (18.0-39.1); MEAN CORPUSCULAR HEMOGLOBIN 31.4 pg (28-32); MEAN CORPUSCULAR HGB CONC 30.5 g/dL (31-35); MEAN CORPUSCULAR VOLUME 103.2 fL (81-99); MONOCYTES # (AUTO) 0.6 (0.2-0.8); MONOCYTES % 7.7 % (4.4-11.3); NEUTROPHILS # (AUTO) 5.5 (2.1-6.9); NEUTROPHILS % 72.4 % (38.7-80.0); PLATELET COUNT 259 x10e3/uL (140-360); RED BLOOD COUNT 3.15 x10e6/uL (3.6-5.1); RED CELL DISTRIBUTION WIDTH 14.2 % (11.7-14.4)
[2021-09-13 17:34] LABS: COLOR,URINE STRAW (YELLOW)
[2021-09-13 17:35] LABS: CLARITY,URINE SL CLOUDY (CLEAR); KETONES,URINE NEGATIVE (NEGATIVE); LEUKOCYTE ESTERASE ,URINE NEGATIVE (NEGATIVE); NITRITE,URINE NEGATIVE (NEGATIVE); PROTEIN,URINE DIPSTICK NEGATIVE (NEGATIVE); URINE UROBILINOGEN 0.2 mg/dL (0.2 - 1)
[2021-09-13 17:36] LABS: AMPHETAMINES SCREEN,URINE NEGATIVE (NEGATIVE); BENZODIAZEPINES SCREEN,URINE POSITIVE (NEGATIVE); PHENCYCLIDINE SCREEN,URINE NEGATIVE (NEGATIVE)
[2021-09-13 17:44] LABS: AMORPHOUS SEDIMENT,URINE FEW (FEW); BACTERIA,URINE FEW /HPF; HYALINE CASTS 0-1 (0-1)
[2021-09-13 17:47] LABS: ALBUMIN 2.8 g/dL (3.5-5.0); ALBUMIN/GLOBULIN RATIO 0.7 (0.8-2.0); ANION GAP 16.7 mmol/L (8-16); CREATININE, SERUM 0.93 mg/dL (0.57-1.11); POTASSIUM 3.7 mmol/L (3.5-5.1)
[2021-09-13 19:57] VITALS: BP 141/58
== END 2021-09-13 21:05 | disposition other institution (70) ==
LOC: ER 16:07
DX: R41.0 Disorientation, unspecified (principal); I63.9 Cerebral infarction, unspecified; I10 Essential (primary) hypertension; E11.65 Type 2 diabetes mellitus with hyperglycemia; E11.40 Type 2 diabetes mellitus with diabetic neuropathy, unspecified; Z20.822 Contact with and (suspected) exposure to COVID-19; E78.5 Hyperlipidemia, unspecified; E03.9 Hypothyroidism, unspecified; I25.10 Atherosclerotic heart disease of native coronary artery without angina pectoris; M10.9 Gout, unspecified; M79.7 Fibromyalgia; I73.00 Raynaud's syndrome without gangrene; Z85.3 Personal history of malignant neoplasm of breast; Z85.850 Personal history of malignant neoplasm of thyroid; Z95.810 Presence of automatic (implantable) cardiac defibrillator
CPT/HCPCS: 36415; 51700; 70450; 71045; 80053; 80307; 80320; 81001; 83605; 84484; 85025; 87040; 99284; U0002; 93005

== ENCOUNTER 2021-10-17 19:31 | Inpatient (IN) | payer MEDICARE ==
[~2021-10-17] VITALS: Ht 165.1 cm; Wt 127.0 kg
[2021-10-17 20:48] LABS: BASOPHILS % 0.3 % (0.0-1.0); EOSINOPHILS % 0.3 % (0.0-6.0); HEMATOCRIT 33.1 % (34.2-44.1); HEMOGLOBIN 10.7 g/dL (12.0-16.0); LYMPHOCYTES # (AUTO) 1.4 (1.0-3.2); LYMPHOCYTES % 11.3 % (18.0-39.1); MEAN CORPUSCULAR HEMOGLOBIN 30.9 pg (28-32); MEAN CORPUSCULAR HGB CONC 32.3 g/dL (31-35); MEAN CORPUSCULAR VOLUME 95.7 fL (81-99); MONOCYTES % 8.6 % (4.4-11.3); NEUTROPHILS # (AUTO) 9.1 (2.1-6.9); NEUTROPHILS % 76.6 % (38.7-80.0); PLATELET COUNT 350 x10e3/uL (140-360); RED BLOOD COUNT 3.46 x10e6/uL (3.6-5.1); RED CELL DISTRIBUTION WIDTH 14.4 % (11.7-14.4)
[2021-10-17 21:07] LABS: ALBUMIN 2.9 g/dL (3.5-5.0); ALBUMIN/GLOBULIN RATIO 0.7 (0.8-2.0); ANION GAP 16.8 mmol/L (8-16); CREATININE, SERUM 1.64 mg/dL (0.57-1.11); POTASSIUM 3.8 mmol/L (3.5-5.1)
[2021-10-17 22:00] LABS: CLARITY,URINE SL CLOUDY (CLEAR); COLOR,URINE AMBER (YELLOW); KETONES,URINE NEGATIVE (NEGATIVE); LEUKOCYTE ESTERASE ,URINE SMALL (NEGATIVE); NITRITE,URINE NEGATIVE (NEGATIVE); PROTEIN,URINE DIPSTICK TRACE (NEGATIVE); URINE UROBILINOGEN 0.2 mg/dL (0.2 - 1)
[2021-10-17 22:07] LABS: BACTERIA,URINE FEW /HPF; EPITHELIAL CELLS,URINE MANY /LPF; RBC,URINE 0-5 /HPF (0-5)
[2021-10-17] MEDS ORDERED: ACETAMINOPHEN 325 MG TAB PO PRN (23:45)
[2021-10-18] VITALS (8 sets, daily range): BP systolic 113–143; BP diastolic 52–69
[2021-10-18] MEDS ORDERED: DEXILANT60 MG PO (04:43)
[2021-10-18 06:11] LABS: BASOPHILS % 0.2 % (0.0-1.0); EOSINOPHILS # (AUTO) 0.1 (0.0-0.4); EOSINOPHILS % 0.7 % (0.0-6.0); HEMATOCRIT 31.6 % (34.2-44.1); HEMOGLOBIN 10.1 g/dL (12.0-16.0); LYMPHOCYTES # (AUTO) 1.3 (1.0-3.2); LYMPHOCYTES % 15.6 % (18.0-39.1); MEAN CORPUSCULAR HEMOGLOBIN 31.4 pg (28-32); MEAN CORPUSCULAR VOLUME 98.1 fL (81-99); MONOCYTES # (AUTO) 1.1 (0.2-0.8); MONOCYTES % 12.9 % (4.4-11.3); NEUTROPHILS # (AUTO) 5.6 (2.1-6.9); NEUTROPHILS % 68.2 % (38.7-80.0); PLATELET COUNT 292 x10e3/uL (140-360); RED BLOOD COUNT 3.22 x10e6/uL (3.6-5.1); RED CELL DISTRIBUTION WIDTH 14.5 % (11.7-14.4)
[2021-10-18 07:06] LABS: ANION GAP 16.3 mmol/L (8-16); CALCIUM 8.9 mg/dL (8.4-10.2); CREATININE, SERUM 1.57 mg/dL (0.57-1.11); POTASSIUM 3.3 mmol/L (3.5-5.1)
[2021-10-18] MEDS ORDERED: DEXTROSE 50% SYRINGE 50 ML IV PRN (13:00)
[2021-10-18] MEDS: CLOPIDOGREL BISULFATE 75 MG TAB PO SCH (14:00)
[2021-10-18] MEDS: ALLOPURINOL 300 MG TAB PO SCH (15:08)
[2021-10-18] MEDS: GABAPENTIN 400 MG CAP PO SCH ×2 (15:08→20:36)
[2021-10-18] MEDS: PANTOPRAZOLE SOD 40 MG TABEC PO SCH (16:30)
[2021-10-18] MEDS: INSULIN LISPRO 100 UNIT/1 ML 3ML VIAL SQ SCH ×2 (16:30→20:37)
[2021-10-18] MEDS: RANOLAZINE 500 MG TABSR PO SCH (17:17)
[2021-10-18] MEDS: FUROSEMIDE 40 MG TAB PO SCH (17:18)
[2021-10-18] MEDS: LOSARTAN POTASSIUM 25 MG TAB PO SCH (20:36)
[2021-10-19] VITALS (7 sets, daily range): BP systolic 126–139; BP diastolic 53–69
[2021-10-19] MEDS: INSULIN LISPRO 100 UNIT/1 ML 3ML VIAL SQ SCH ×4 (07:30→23:43)
[2021-10-19] MEDS: PANTOPRAZOLE SOD 40 MG TABEC PO SCH ×2 (08:00→16:49)
[2021-10-19] MEDS: METOPROLOL TARTRATE 25 MG TAB PO SCH (08:57)
[2021-10-19] MEDS: GABAPENTIN 400 MG CAP PO SCH ×3 (08:57→23:16)
[2021-10-19] MEDS: RANOLAZINE 500 MG TABSR PO SCH ×2 (08:57→16:50)
[2021-10-19] MEDS: FUROSEMIDE 40 MG TAB PO SCH ×2 (08:57→16:49)
[2021-10-19] MEDS: ZINC SULFATE 50 MG CAP PO SCH (08:57)
[2021-10-19] MEDS: ALLOPURINOL 300 MG TAB PO SCH (08:57)
[2021-10-19] MEDS: CLOPIDOGREL BISULFATE 75 MG TAB PO SCH (08:57)
[2021-10-19] MEDS ORDERED: POTASSIUM CHLORIDE 20 MEQ TAB CR PO NR (09:30)
[2021-10-19] MEDS: TRAMADOL HCL 50 MG TAB PO PRN (09:40)
[2021-10-19 12:10] LABS: BASOPHILS % 0.4 % (0.0-1.0); EOSINOPHILS % 0.5 % (0.0-6.0); HEMATOCRIT 28.6 % (34.2-44.1); HEMOGLOBIN 9.1 g/dL (12.0-16.0); LYMPHOCYTES # (AUTO) 1.5 (1.0-3.2); LYMPHOCYTES % 17.4 % (18.0-39.1); MEAN CORPUSCULAR HEMOGLOBIN 31.4 pg (28-32); MEAN CORPUSCULAR HGB CONC 31.8 g/dL (31-35); MEAN CORPUSCULAR VOLUME 98.6 fL (81-99); MONOCYTES # (AUTO) 1.1 (0.2-0.8); MONOCYTES % 13.5 % (4.4-11.3); NEUTROPHILS # (AUTO) 5.6 (2.1-6.9); NEUTROPHILS % 66.8 % (38.7-80.0); PLATELET COUNT 279 x10e3/uL (140-360); RED CELL DISTRIBUTION WIDTH 14.8 % (11.7-14.4)
[2021-10-19 12:24] LABS: ANION GAP 11.8 mmol/L (8-16); CALCIUM 9.1 mg/dL (8.4-10.2); CREATININE, SERUM 1.12 mg/dL (0.57-1.11); POTASSIUM 3.8 mmol/L (3.5-5.1)
[2021-10-19] MEDS: LACTULOSE SYRUP 20 GM/30 ML UDC PO PRN (16:49)
[2021-10-19] MEDS: LOSARTAN POTASSIUM 25 MG TAB PO SCH (23:16)
[2021-10-20] VITALS (8 sets, daily range): BP systolic 94–126; BP diastolic 51–62
[2021-10-20 06:12] LABS: BASOPHILS % 0.5 % (0.0-1.0); EOSINOPHILS # (AUTO) 0.1 (0.0-0.4); EOSINOPHILS % 1.3 % (0.0-6.0); HEMATOCRIT 28.4 % (34.2-44.1); HEMOGLOBIN 8.9 g/dL (12.0-16.0); LYMPHOCYTES # (AUTO) 1.4 (1.0-3.2); LYMPHOCYTES % 18.5 % (18.0-39.1); MEAN CORPUSCULAR HEMOGLOBIN 31.1 pg (28-32); MEAN CORPUSCULAR HGB CONC 31.3 g/dL (31-35); MEAN CORPUSCULAR VOLUME 99.3 fL (81-99); MONOCYTES # (AUTO) 1.1 (0.2-0.8); MONOCYTES % 14.5 % (4.4-11.3); NEUTROPHILS # (AUTO) 4.9 (2.1-6.9); NEUTROPHILS % 63.9 % (38.7-80.0); PLATELET COUNT 281 x10e3/uL (140-360); RED BLOOD COUNT 2.86 x10e6/uL (3.6-5.1)
[2021-10-20 06:44] LABS: ALBUMIN 2.6 g/dL (3.5-5.0); ALBUMIN/GLOBULIN RATIO 0.7 (0.8-2.0); ANION GAP 15.9 mmol/L (8-16); CALCIUM 9.1 mg/dL (8.4-10.2); CREATININE, SERUM 1.16 mg/dL (0.57-1.11); POTASSIUM 3.9 mmol/L (3.5-5.1)
[2021-10-20] MEDS: PANTOPRAZOLE SOD 40 MG TABEC PO SCH ×2 (07:30→16:33)
[2021-10-20] MEDS: FUROSEMIDE 40 MG TAB PO SCH ×2 (09:00→16:34)
[2021-10-20] MEDS: ZINC SULFATE 50 MG CAP PO SCH (09:00)
[2021-10-20] MEDS: CLOPIDOGREL BISULFATE 75 MG TAB PO SCH (09:00)
[2021-10-20] MEDS: METOPROLOL TARTRATE 25 MG TAB PO SCH (09:00)
[2021-10-20] MEDS: ALLOPURINOL 300 MG TAB PO SCH (09:00)
[2021-10-20] MEDS: GABAPENTIN 400 MG CAP PO SCH ×3 (09:00→21:51)
[2021-10-20] MEDS: RANOLAZINE 500 MG TABSR PO SCH ×2 (09:00→16:35)
[2021-10-20] MEDS ORDERED: PANTOPRAZOLE SOD 40 MG TABEC PO SCH (09:30)
[2021-10-20] MEDS: INSULIN LISPRO 100 UNIT/1 ML 3ML VIAL SQ SCH ×4 (10:30→21:46)
[2021-10-20] MEDS: THYROID 60 MG TAB PO SCH (11:11)
[2021-10-20] MEDS: LOSARTAN POTASSIUM 25 MG TAB PO SCH (21:00)
[2021-10-20] MEDS: TRAMADOL HCL 50 MG TAB PO PRN (22:00)
[2021-10-21] VITALS (8 sets, daily range): BP systolic 108–138; BP diastolic 49–65
[2021-10-21] MEDS: INSULIN LISPRO 100 UNIT/1 ML 3ML VIAL SQ SCH ×4 (07:30→20:54)
[2021-10-21] MEDS: TRAMADOL HCL 50 MG TAB PO PRN (08:10)
[2021-10-21] MEDS: PANTOPRAZOLE SOD 40 MG TABEC PO SCH ×2 (08:30→16:55)
[2021-10-21] MEDS: LETROZOLE 2.5 MG PO SCH (09:00)
[2021-10-21] MEDS: CLOPIDOGREL BISULFATE 75 MG TAB PO SCH (09:46)
[2021-10-21] MEDS: FUROSEMIDE 40 MG TAB PO SCH ×2 (09:46→16:56)
[2021-10-21] MEDS: GABAPENTIN 400 MG CAP PO SCH ×3 (09:46→20:47)
[2021-10-21] MEDS: THYROID 60 MG TAB PO SCH (09:47)
[2021-10-21] MEDS: ALLOPURINOL 300 MG TAB PO SCH (09:47)
[2021-10-21] MEDS: METOPROLOL TARTRATE 25 MG TAB PO SCH (09:47)
[2021-10-21] MEDS: RANOLAZINE 500 MG TABSR PO SCH ×2 (09:47→16:56)
[2021-10-21] MEDS: ZINC SULFATE 50 MG CAP PO SCH (09:47)
[2021-10-21] MEDS: LOSARTAN POTASSIUM 25 MG TAB PO SCH (20:53)
[2021-10-22] VITALS (7 sets, daily range): BP systolic 120–138; BP diastolic 52–73
[2021-10-22] MEDS: PANTOPRAZOLE SOD 40 MG TABEC PO SCH ×2 (07:30→16:30)
[2021-10-22] MEDS: INSULIN LISPRO 100 UNIT/1 ML 3ML VIAL SQ SCH ×4 (07:30→21:45)
[2021-10-22] MEDS: LETROZOLE 2.5 MG PO SCH (09:00)
[2021-10-22] MEDS: FUROSEMIDE 40 MG TAB PO SCH ×2 (10:14→17:00)
[2021-10-22] MEDS: GABAPENTIN 400 MG CAP PO SCH ×3 (10:16→21:31)
[2021-10-22] MEDS: METOPROLOL TARTRATE 25 MG TAB PO SCH (10:16)
[2021-10-22] MEDS: THYROID 60 MG TAB PO SCH (10:16)
[2021-10-22] MEDS: RANOLAZINE 500 MG TABSR PO SCH ×2 (10:16→18:31)
[2021-10-22] MEDS: CLOPIDOGREL BISULFATE 75 MG TAB PO SCH (10:16)
[2021-10-22] MEDS: ALLOPURINOL 300 MG TAB PO SCH (10:17)
[2021-10-22] MEDS: ZINC SULFATE 50 MG CAP PO SCH (10:17)
[2021-10-22] MEDS: TRAMADOL HCL 50 MG TAB PO PRN (21:31)
[2021-10-22] MEDS: LOSARTAN POTASSIUM 25 MG TAB PO SCH (21:31)
[2021-10-23] VITALS (8 sets, daily range): BP systolic 105–133; BP diastolic 52–64
[2021-10-23] MEDS: INSULIN LISPRO 100 UNIT/1 ML 3ML VIAL SQ SCH ×4 (07:30→21:31)
[2021-10-23] MEDS: PANTOPRAZOLE SOD 40 MG TABEC PO SCH ×2 (08:00→16:30)
[2021-10-23] MEDS: LETROZOLE 2.5 MG PO SCH (09:00)
[2021-10-23] MEDS: CLOPIDOGREL BISULFATE 75 MG TAB PO SCH (09:28)
[2021-10-23] MEDS: RANOLAZINE 500 MG TABSR PO SCH ×2 (09:28→17:19)
[2021-10-23] MEDS: GABAPENTIN 400 MG CAP PO SCH ×3 (09:28→20:49)
[2021-10-23] MEDS: ALLOPURINOL 300 MG TAB PO SCH (09:28)
[2021-10-23] MEDS: FUROSEMIDE 40 MG TAB PO SCH ×2 (09:28→17:17)
[2021-10-23] MEDS: METOPROLOL TARTRATE 25 MG TAB PO SCH (09:28)
[2021-10-23] MEDS: THYROID 60 MG TAB PO SCH (09:28)
[2021-10-23] MEDS: ZINC SULFATE 50 MG CAP PO SCH (09:28)
[2021-10-23] MEDS: TRAMADOL HCL 50 MG TAB PO PRN ×2 (13:40→20:48)
[2021-10-23] MEDS: LOSARTAN POTASSIUM 25 MG TAB PO SCH (20:49)
[2021-10-24] VITALS (8 sets, daily range): BP systolic 120–140; BP diastolic 58–70
[2021-10-24] MEDS: TRAMADOL HCL 50 MG TAB PO PRN ×3 (04:47→21:44)
[2021-10-24] MEDS: INSULIN LISPRO 100 UNIT/1 ML 3ML VIAL SQ SCH ×4 (07:30→21:37)
[2021-10-24] MEDS: PANTOPRAZOLE SOD 40 MG TABEC PO SCH ×2 (08:00→16:46)
[2021-10-24] MEDS: LETROZOLE 2.5 MG PO SCH (09:00)
[2021-10-24] MEDS: GABAPENTIN 400 MG CAP PO SCH ×3 (09:20→21:37)
[2021-10-24] MEDS: FUROSEMIDE 40 MG TAB PO SCH ×2 (09:20→17:00)
[2021-10-24] MEDS: CLOPIDOGREL BISULFATE 75 MG TAB PO SCH (09:20)
[2021-10-24] MEDS: METOPROLOL TARTRATE 25 MG TAB PO SCH (09:20)
[2021-10-24] MEDS: ALLOPURINOL 300 MG TAB PO SCH (09:21)
[2021-10-24] MEDS: THYROID 60 MG TAB PO SCH (09:21)
[2021-10-24] MEDS: RANOLAZINE 500 MG TABSR PO SCH ×2 (09:21→17:00)
[2021-10-24] MEDS: ZINC SULFATE 50 MG CAP PO SCH (09:21)
[2021-10-24] MEDS: LOSARTAN POTASSIUM 25 MG TAB PO SCH (21:37)
[2021-10-24] MEDS: LACTULOSE SYRUP 20 GM/30 ML UDC PO PRN (21:44)
[2021-10-25 00:47] VITALS: BP 134/64
[2021-10-25 05:10] VITALS: BP 139/59
[2021-10-25 05:41] LABS: ALBUMIN 2.6 g/dL (3.5-5.0); ALBUMIN/GLOBULIN RATIO 0.7 (0.8-2.0); CALCIUM 9.4 mg/dL (8.4-10.2); CREATININE, SERUM 1.03 mg/dL (0.57-1.11)
[2021-10-25] MEDS ORDERED: THYROID 60 MG TAB PO SCH (06:00)
[2021-10-25] MEDS: TRAMADOL HCL 50 MG TAB PO PRN (06:38)
[2021-10-25] MEDS: LACTULOSE SYRUP 20 GM/30 ML UDC PO PRN (06:39)
[2021-10-25 07:07] LABS: BASOPHILS % 0.6 % (0.0-1.0); EOSINOPHILS # (AUTO) 0.1 (0.0-0.4); EOSINOPHILS % 1.9 % (0.0-6.0); HEMOGLOBIN 9.8 g/dL (12.0-16.0); LYMPHOCYTES # (AUTO) 1.5 (1.0-3.2); LYMPHOCYTES % 24.8 % (18.0-39.1); MEAN CORPUSCULAR HEMOGLOBIN 31.3 pg (28-32); MEAN CORPUSCULAR HGB CONC 31.6 g/dL (31-35); MONOCYTES # (AUTO) 0.9 (0.2-0.8); MONOCYTES % 14.3 % (4.4-11.3); NEUTROPHILS # (AUTO) 3.6 (2.1-6.9); NEUTROPHILS % 57.8 % (38.7-80.0); PLATELET COUNT 261 x10e3/uL (140-360); RED BLOOD COUNT 3.13 x10e6/uL (3.6-5.1); RED CELL DISTRIBUTION WIDTH 15.3 % (11.7-14.4)
[2021-10-25 08:00] VITALS: BP 131/62
[2021-10-25 08:09] VITALS: BP 120/58
[2021-10-25] MEDS: LETROZOLE 2.5 MG PO SCH (09:00)
[2021-10-25] MEDS: FUROSEMIDE 40 MG TAB PO SCH (09:38)
[2021-10-25] MEDS: PANTOPRAZOLE SOD 40 MG TABEC PO SCH (09:38)
[2021-10-25] MEDS: METOPROLOL TARTRATE 25 MG TAB PO SCH (09:39)
[2021-10-25] MEDS: RANOLAZINE 500 MG TABSR PO SCH (09:39)
[2021-10-25] MEDS: ZINC SULFATE 50 MG CAP PO SCH (09:39)
[2021-10-25] MEDS: GABAPENTIN 400 MG CAP PO SCH (09:39)
[2021-10-25] MEDS: CLOPIDOGREL BISULFATE 75 MG TAB PO SCH (09:39)
[2021-10-25] MEDS: ALLOPURINOL 300 MG TAB PO SCH (09:40)
[2021-10-25] MEDS: INSULIN LISPRO 100 UNIT/1 ML 3ML VIAL SQ SCH (09:41)
[2021-10-25] MEDS ORDERED: HEPARIN 500 UNITS/5ML MDV INJ ONE (10:15)
[2021-10-25 12:23] VITALS: BP 130/54
== END 2021-10-25 12:54 | DRG 562 ==
LOC: ER 19:40 → ERHOLD 22:48 → MED/SURG3 23:54 → OBSVTOIN 10-19 08:03
PROVIDERS: ADMIT Family Medicine; ATTEND Family Medicine
DX: S82.841A Displaced bimalleolar fracture of right lower leg, initial encounter for closed fracture (principal); U07.1 COVID-19; N17.9 Acute kidney failure, unspecified; Z68.42 Body mass index [BMI] 45.0-49.9, adult; E66.2 Morbid (severe) obesity with alveolar hypoventilation; R62.7 Adult failure to thrive; I27.20 Pulmonary hypertension, unspecified; R09.02 Hypoxemia; I11.9 Hypertensive heart disease without heart failure; I69.319 Unspecified symptoms and signs involving cognitive functions following cerebral infarction; E11.9 Type 2 diabetes mellitus without complications; E89.0 Postprocedural hypothyroidism; R53.81 Other malaise; E78.5 Hyperlipidemia, unspecified; G47.00 Insomnia, unspecified; M10.9 Gout, unspecified; Z90.10 Acquired absence of unspecified breast and nipple; Z88.6 Allergy status to analgesic agent; Z88.1 Allergy status to other antibiotic agents; Z91.041 Radiographic dye allergy status; Z88.5 Allergy status to narcotic agent; Z88.0 Allergy status to penicillin; Z88.7 Allergy status to serum and vaccine; Z88.8 Allergy status to other drugs, medicaments and biological substances; Z91.048 Other nonmedicinal substance allergy status; Z83.3 Family history of diabetes mellitus; Z82.49 Family history of ischemic heart disease and other diseases of the circulatory system
CPT/HCPCS: 36415; 71045; 80048; 80053; 81001; 82948; 84484; 85025; 93005; 94799; 96372; 97139; 99284; G0378; U0002